=== PATIENT | female | born 1945 | race Caucasian/White ===

== ENCOUNTER → 2017-10-28 | Outpatient (CLI) | payer MEDICARE, MEDICAID ==
[~2017-10-28] MED LIST: AC325T PO; AC500T; AC500T PO; ASP325T PO; ASP81TEC PO; ASPI-892 PO; ATOR20TA66 PO; CEFP200T2 PO; CEPH500C PO; CINN1CAP PO; CINN500C7 PO; CLOP75TA28 PO; CLPD75T PO; DEXL60CA PO; DULO60CA6 PO; ENLP5T; FAMOTIDINE PO; FENO135C4 PO; HYDR1TAB PO; IPRA4AER IH; ISM60TCR PO; ISOS30TA7 PO; LEVO100T7 PO; LVST20T; LVT.05T PO; LVT.088T PO; MAGN400T6 PO; MECL-124 PO; METF-380 PO; METO100T5 PO; MGX400T PO; MTP25TSR; NAPR-243 PO; NF-ESOM40C PO; NF-LOVAZAC; NF-LOVAZAC PO; NIA500ERT PO; NIAC1000 PO; NIAC1TBM5; NITR-65 PO; NITR12SP5 SL; OMG1KC; ONDA8TAB13 PO; ONDAN4ODT PO; PANT40TA3 PO; PNT40TEC PO; POTA10TA36 PO; PRD20T PO; RANO10003 PO; RANO500T2 PO; SCOP1PAT TD; SIMV40TA2 PO; SITA1TAB6 PO; SUCR1TAB PO
--- NOTE | 2017-10-28 10:09 | Diagnostic Imaging Report ---
PROCEDURE: Lung cancer screening CT chest without contrast. TECHNIQUE: Multiple contiguous axial images were obtained through the chest without the use of intravenous contrast. This is performed with a low-dose protocol. INDICATION: Currently asymptomatic patient with 60 pack years history of smoking Comparison: 09/28/2013 Findings: There is a 4 mm nodule in the right upper lobe near the level of the right hilum laterally similar to 09/28/2013 exam. No other nodules, lung mass or significant consolidation is seen. There is no interstitial thickening. No bronchiectasis. There is no pleural or pericardial effusion. There is a healed sternotomy. Post CABG changes are suggested. The heart size is normal. The thoracic aorta demonstrates minimal ectasia of the ascending aorta measuring 3.5 cm. No mediastinal mass or lymphadenopathy. The axilla demonstrate no significant adenopathy. The liver demonstrate diffuse steatosis. The osseous structures demonstrate degenerative changes in the thoracic spine. IMPRESSION: 1. No suspicious nodule or mass. 2. Diffuse hepatic steatosis. Lung Rads Category 2. Benign findings. Recommendations: Annual screening low-dose CT scan. Dictated by: Dictated on workstation # [id number]
== END ==
LOC: RAD 07:43
PROVIDERS: ATTEND Nurse Practitioner Family
DX: Z12.2 Encounter for screening for malignant neoplasm of respiratory organs (principal); K76.0 Fatty (change of) liver, not elsewhere classified; Z87.891 Personal history of nicotine dependence; Z95.1 Presence of aortocoronary bypass graft

== ENCOUNTER → 2017-11-04 | Outpatient (CLI) | payer MEDICARE, MEDICAID | LOC: PREOP 05:19 | PROVIDERS: ATTEND Surgery | DX: Z01.818 Encounter for other preprocedural examination (principal); Z12.11 Encounter for screening for malignant neoplasm of colon ==

== ENCOUNTER → 2017-11-13 | Outpatient (CLI) | payer MEDICARE, MEDICAID ==
--- NOTE | 2017-11-13 11:22 | Diagnostic Imaging Report ---
EXAM: DEXA scan. INDICATION: Screening for osteoporosis COMPARISON: There are no prior studies available for comparison. FINDINGS: The bone mineral density of the hips and spine was measured. The T score for the spine is -1.6. The T score for the right hip is -1.2. These values do fall within the range of osteopenia. The T score for the left hip is -0.8. This value is within normal limits. IMPRESSION: The bone mineral density of the left hip is within normal limits but there is osteopenia of the right hip and the spine. Dictated by: Dictated on workstation # [id number]
== END ==
LOC: RAD 08:38
PROVIDERS: ATTEND Nurse Practitioner Family
DX: M85.851 Other specified disorders of bone density and structure, right thigh (principal); M85.88 Other specified disorders of bone density and structure, other site
CPT/HCPCS: 77080

== ENCOUNTER 2018-01-03 15:03 | Inpatient (IN) | payer MEDICARE, MEDICAID ==
[~2018-01-03] VITALS: Ht 152.4 cm; Wt 72.4 kg
[~2018-01-03 15:03] MED LIST changes: +ACET-93 PO; +ATOR40TA70 PO; +DAPA5TAB PO; +FENO160T12 PO; +LEVO75TA PO; +LOSA50TA36 PO; +NITR4.9S6 SL; +OSEL30CA PO
--- NOTE | 2018-01-03 15:32 | ED Chest Pain ---
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 patient received 4 81 mg aspirin. patient reports chest pain is intermittent. patient denies N/V. patient denies SOA worse than normal Nursing Sepsis Screen: No Definite Risk Source: patient, EMS Exam Limitations: no limitations History of Present Illness Date Seen by Provider: Jan 03, 2018 Time Seen by Provider: 15:28 Initial Comments This 72-year-old white female presents with a complaint of a pressure type chest pain that began this afternoon shortly prior to presentation emergency department. The patient took nitroglycerin with some improvement in her pain. After the paramedics arrived patient was given nitroglycerin as an appointment to her anterior chest wall with good resolution of her chest pain. The patient's chest pain was pressure type in nature severe in quality and nonradiating. Patient had no associated diaphoresis or vomiting. The patient' s chronic shortness of breath is unchanged. Patient was given aspirin prior to presentation. Allergies and Home Medications Allergies Coded Allergies: fentanyl (Unverified Allergy, Intermediate, SEVERE NAUSEA/VOMITTING, ) Sulfa (Sulfonamide Antibiotics) (Verified Allergy, Unknown, 03/15/08) tramadol (Verified Allergy, Unknown, 09/01/08) Home Medications Acetaminophen 500 Mg Tablet, 1,000 MG PO Q6H PRN for PAIN-MILD, (Reported) TAKES 2 (500 MG) TABLETS Atorvastatin Calcium 40 Mg Tablet, 40 MG PO HS, (Reported) Clopidogrel Bisulfate 75 Mg Tablet, 75 MG PO DAILY, (Reported) Dapagliflozin Propanediol 5 Mg Tablet, 5 MG PO DAILY, (Reported) Fenofibrate 160 Mg Tablet, 160 MG PO DAILY, (Reported) Isosorbide Mononitrate 60 Mg Tab, 60 MG PO DAILY, (Reported) Levothyroxine Sodium 75 Mcg Tablet, 75 MCG PO DAILY@0630 Prescribed by: EDGAR COELLO on 12/23/17 6842 Losartan Potassium 50 Mg Tablet, 50 MG PO DAILY, (Reported) Nitroglycerin 4.9 Gm Crockett, 1 SPRAY SL UD PRN for CHEST PAIN, (Reported) Pantoprazole Sodium 40 Mg Tablet.dr, 40 MG PO DAILY, (Reported) Ranolazine 1,000 Mg Tab.er.12h, 1,000 MG PO BID, (Reported) Sitagliptin Phos/Metformin HCl 1 Each Tablet, 1 TAB PO BID, (Reported) Patient Home Medication List Home Medication List Reviewed: Yes Review of Systems Constitutional: No chills, No diaphoresis, No fever EENTM: No Blurred Vision Respiratory: Denies Cough, Shortness of Air (chronic, not worse today.) Cardiovascular: See HPI, Chest Pain, Denies Palpitations Gastrointestinal: Denies Abdominal Pain, Denies Nausea Genitourinary: Denies Burning, Drainage, Denies Frequency Musculoskeletal: No back pain Skin: No change in color Psychiatric/Neurological: No Symptoms Reported Endocrine: No Symptoms Reported Hematologic/Lymphatic: No Symptoms Reported Past Mihjtlq-Gjhdue-Wouqlo Hx Patient Social History Alcohol Use: Denies Use Recreational Drug Use: No Smoking Status: Former Smoker Type Used: Cigarettes Former Smoker, Quit: May 19, 2009 Recent Foreign Travel: No Contact w/Someone Who Travel: No Recent Infectious Disease Expo: No Recent Hopitalizations: Yes Immunizations Up To Date Tetanus Booster (TDap): Unknown PED Vaccines UTD: Yes Date of Pneumonia Vaccine: Aug 03, 2017 Date of Influenza Vaccine: Aug 03, 2017 Seasonal Allergies Seasonal Allergies: No Surgeries History of Surgeries: Yes Surgeries: Cardiac, CABG, Coronary Stent, Gallbladder, Hysterectomy Respiratory History of Respiratory Disorde: Yes (O2 WITH ANY ACTIVITY AND AT HS) Respiratory Disorders: Pneumonia, COPD Currently Using CPAP: No Currently Using BIPAP: No Cardiovascular History of Cardiac Disorders: Yes (BRADYCARDIA) Cardiac Disorders: Coronary Artery Disease, Heart Attack, High Cholesterol, Hypertension Neurological History of Neurological Disord: Yes Neurological Disorders: Stroke Reproductive System Hx Reproductive Disorders: No Sexually Transmitted Disease: No HIV/AIDS: No Genitourinary History of Genitourinary Disor: No Gastrointestinal History of Gastrointestinal Di: Yes Gastrointestinal Disorders: Gastroesophageal Reflux, Esophagitis, Hiatal Hernia Musculoskeletal History of Musculoskeletal Dis: Yes Musculoskeletal Disorders: Arthritis, Chronic Back Pain Endocrine History of Endocrine Disorders: Yes Endocrine Disorders: Hypothyroidsim, Diabetes, Non-Insulin dep HEENT History of HEENT Disorders: No Cancer History of Cancer: No Psychosocial History of Psychiatric Problem: No Integumentary History of Skin or Integumenta: No Blood Transfusions History of Blood Disorders: No Adverse Reaction to a Blood Tr: No Reviewed Nursing Assessment Reviewed/Agree w Nursing PMH: Yes Family Medical History Family Medial History: Arthritis 19 FATHER Asthma 19 MOTHER Cardiovascular disease 19 MOTHER G8 BROTHER G8 SISTER G8 SISTER G8 SISTER Cataracts 19 FATHER Diabetes mellitus 19 MOTHER G8 BROTHER G8 SISTER G8 SISTER G8 SISTER Hypertension 19 MOTHER Myocardial infarction 19 MOTHER G8 SISTER G8 SISTER Parkinson's disease G8 BROTHER Prostate cancer 19 FATHER Respiratory disorder G8 BROTHER Thyroid disease 19 MOTHER Physical Exam Vital Signs Vital Signs - First Documented 01/03/18 15:09 Temp 98.4 Pulse 78 Resp 24 B/P (MAP) 135/87 (103) Pulse Ox 96 O2 Delivery Nasal Cannula O2 Flow Rate 2.00 Capillary Refill : Less Than 3 Seconds General Appearance: No Apparent Distress, WD/WN HEENT: PERRL/EOMI, Normal ENT Inspection Neck: Normal Inspection Respiratory: Chest Non Tender, Lungs Clear, Normal Breath Sounds Cardiovascular: Regular Rate, Rhythm, No Gallop, Normal Peripheral Pulses Gastrointestinal: Normal Bowel Sounds, Non Tender, Soft Extremity: Normal Inspection, Normal Range of Motion Neurologic/Psychiatric: Alert, Oriented x3, No Motor/Sensory Deficits, Normal Mood/Affect Skin: Normal Color, Warm/Dry Progress/Results/Core Measures Results/Orders Lab Results Laboratory Tests Test 01/03/18 15:35 Range/Units White Blood Count 9.5 4.3-11.0 10^3/uL Red Blood Count 4.25 L 4.35-5.85 10^6/uL Hemoglobin 12.2 11.5-16.0 G/DL Hematocrit 37 35-52 % Mean Corpuscular Volume 86 80-99 FL Mean Corpuscular Hemoglobin 29 25-34 PG Mean Corpuscular Hemoglobin Concent 33 32-36 G/DL Red Cell Distribution Width 15.3 H 10.0-14.5 % Platelet Count 305 130-400 10^3/uL Mean Platelet Volume 10.2 7.4-10.4 FL Neutrophils (%) (Auto) 61 42-75 % Lymphocytes (%) (Auto) 30 12-44 % Monocytes (%) (Auto) 7 0-12 % Eosinophils (%) (Auto) 1 0-10 % Basophils (%) (Auto) 1 0-10 % Neutrophils # (Auto) 5.8 1.8-7.8 X 10^3 Lymphocytes # (Auto) 2.9 1.0-4.0 X 10^3 Monocytes # (Auto) 0.7 0.0-1.0 X 10^3 Eosinophils # (Auto) 0.1 0.0-0.3 10^3/uL Basophils # (Auto) 0.1 0.0-0.1 10^3/uL Sodium Level 139 135-145 MMOL/L Potassium Level 3.3 L 3.6-5.0 MMOL/L Chloride Level 106 98-107 MMOL/L Carbon Dioxide Level 22 21-32 MMOL/L Anion Gap 11 5-14 MMOL/L Blood Urea Nitrogen 15 7-18 MG/DL Creatinine 0.74 0.60-1.30 MG/DL Estimat Glomerular Filtration Rate > 60 BUN/Creatinine Ratio 20 Glucose Level 253 H 70-105 MG/DL Calcium Level 9.3 8.5-10.1 MG/DL Total Bilirubin 0.3 0.1-1.0 MG/DL Aspartate Amino Transf (AST/SGOT) 14 5-34 U/L Alanine Aminotransferase (ALT/SGPT) 17 0-55 U/L Alkaline Phosphatase 49 40-136 U/L Troponin I < 0.30 <0.30 NG/ML Total Protein 6.7 6.4-8.2 GM/DL Albumin 3.9 3.2-4.5 GM/DL My Orders Orders - VIC SANTACRUZ MD Troponin I (01/03/18 15:24) Ekg Tracing (01/03/18 15:24) Cbc With Automated Diff (01/03/18 15:24) Comprehensive Metabolic Panel (01/03/18 15:24) Chest 1 View, Ap/Pa Only (01/03/18 15:24) Oxygen-Administer 07,19 (01/03/18 15:24) Enoxaparin Injection (Lovenox Injection) (01/03/18 17:00) Metoprolol Succinate (Xl) Tab (Toprol Xl (01/03/18 17:00) Aspirin Chewable Tablet (Baby Aspirin Ch (01/03/18 17:00) Vital Signs/I&O Vital Sign - Last 12Hours 01/03/18 15:09 Temp 98.4 Pulse 78 Resp 24 B/P (MAP) 135/87 (103) Pulse Ox 96 O2 Delivery Nasal Cannula O2 Flow Rate 2.00 Blood Pressure Mean: 103 Progress Note : Time: 16:50 Progress Note Visit with Dr. Mosqueda who was kind enough to admit the patient for further care. I talked with Dr. Araujo for Dr. Moulton. He recommended patient receive aspirin (given in field, Lovenox, and Toprol. Patient will remain nothing by mouth following a clear liquid breakfast in the morning. She is to be placed on a cardiac diet. Departure Communication (Admissions) Time/Spoke to Admitting Phy: 17:[address] Mosqueda Time/Spoke to Consulting Phy: 17:07 Communication/Consulting Dr. Araujo Impression Impression: Primary Impression: Angina at rest Disposition: ADMITTED INPATIENT Condition: Improved Admissions Decision to Admit Reason: Admit from ER (General) Decision to Admit/Date: Jan 03, 2018 Time/Decision to Admit Time: 17:08 Departure-Patient Inst. Referrals: KODI OQUENDO DO (PCP) Primary Care Physician MARIA MACKEY (Family) Primary Care Physician VIC SANTACRUZ MD Jan 03, 2018 15:32
[2018-01-03 15:43] LABS: BASOPHILS # (AUTO) 0.1 10^3/uL (0.0-0.1); BASOPHILS % (AUTO) 1 % (0-10); EOSINOPHILS # (AUTO) 0.1 10^3/uL (0.0-0.3); EOSINOPHILS % (AUTO) 1 % (0-10); HEMATOCRIT 37 % (35-52); HEMOGLOBIN 12.2 G/DL (11.5-16.0); LYMPHOCYTES # (AUTO) 2.9 X 10^3 (1.0-4.0); LYMPHOCYTES % (AUTO) 30 % (12-44); MEAN CORPUSCULAR HEMOGLOBIN 29 PG (25-34); MEAN CORPUSCULAR HGB CONC 33 G/DL (32-36); MEAN CORPUSCULAR VOLUME 86 FL (80-99); MEAN PLATELET VOLUME 10.2 FL (7.4-10.4); MONOCYTES # (AUTO) 0.7 X 10^3 (0.0-1.0); MONOCYTES % (AUTO) 7 % (0-12); NEUTROPHILS # (AUTO) 5.8 X 10^3 (1.8-7.8); NEUTROPHILS % (AUTO) 61 % (42-75); PLATELET COUNT 305 10^3/uL (130-400); RED BLOOD COUNT 4.25 10^6/uL (4.35-5.85); RED CELL DISTRIBUTION WIDTH 15.3 % (10.0-14.5); WHITE BLOOD COUNT 9.5 10^3/uL (4.3-11.0)
[2018-01-03 16:04] LABS: ALANINE AMINOTRANSFERASE 17 U/L (0-55); ALBUMIN 3.9 GM/DL (3.2-4.5); ALKALINE PHOSPHATASE 49 U/L (40-136); BILIRUBIN,TOTAL 0.3 MG/DL (0.1-1.0); BUN/CREATININE RATIO 20; CALCIUM 9.3 MG/DL (8.5-10.1); CARBON DIOXIDE 22 MMOL/L (21-32); CHLORIDE 106 MMOL/L (98-107); CREATININE SERUM 0.74 MG/DL (0.60-1.30); GFR ESTIMATED > 60; GLUCOSE 253 MG/DL (70-105); POTASSIUM 3.3 MMOL/L (3.6-5.0); SODIUM 139 MMOL/L (135-145); TOTAL PROTEIN 6.7 GM/DL (6.4-8.2)
--- NOTE | 2018-01-03 16:11 | Diagnostic Imaging Report ---
INDICATION: Intermittent chest pain. COMPARISON: 12/20/2017. EXAMINATION: Single view of the chest was obtained. FINDINGS: The lungs are well-aerated. There are no infiltrates that have developed. The heart is mildly enlarged with median sternotomy changes. There is no evidence of pulmonary edema. No pneumothorax or pleural effusion. IMPRESSION: Stable portable chest with postoperative residue and mild cardiomegaly. Dictated by: Dictated on workstation # [id number]
[2018-01-03] MEDS ORDERED: ASPIRIN 81 MG CHEW (CHILDREN'S ASA) PO ONE (17:00)
[2018-01-03] MEDS ORDERED: ENOXAPARIN 80 MG/0.8 ML (LOVENOX) SYR SC ONE (17:00)
[2018-01-03] MEDS ORDERED: CLOPIDOGREL 75 MG (PLAVIX) TABLET PO ONE (17:00)
--- OUTSIDE RECORDS SUMMARY | 2018-01-03 17:19 | XMS REPORT | Continuity of Care Document ---
Author Author [facility] Organization [facility] Address Unknown Phone Unavailable Allergies Active Description Code Type Severity Reaction Onset Reported/Identified Relationship to Patient Clinical Status Yes Sulfa (Sulfonamide Antibiotics) [id number] Drug Allergy Unknown N/A 2007 Yes tramadol [id number] Drug Allergy Unknown N/A 09/01/2008 Yes fentanyl [id number] Drug Allergy Moderate SEVERE NAUSEA/V 06/07/2011 Medications There is no data. Problems Date Dx Coded Attending Type Code Diagnosis Diagnosed By 10/02/1199 Ot V45.81 10/02/1199 Ot V57.89 06/13/2010 Ot 250.00 06/13/2010 Ot 272.4 06/13/2010 Ot 311 06/13/2010 Ot 401.9 06/13/2010 Ot 412 06/13/2010 Ot 414.00 06/13/2010 Ot 428.0 06/13/2010 Ot 428.22 06/13/2010 Ot 496 06/13/2010 Ot 786.59 06/13/2010 Ot V15.81 06/13/2010 Ot V15.82 06/13/2010 Ot V45.81 06/13/2010 Ot V45.82 06/28/2010 Ot 250.00 06/28/2010 Ot 401.9 06/28/2010 Ot 428.0 06/28/2010 Ot 786.05 06/28/2010 Ot 786.59 06/28/2010 Ot V45.81 06/28/2010 Ot V58.66 06/28/2010 Ot V58.69 06/07/2011 Ot 592.1 06/07/2011 Ot 788.1 07/12/2011 Ot 244.9 07/12/2011 Ot 250.00 07/12/2011 Ot 272.4 07/12/2011 Ot 275.2 07/12/2011 Ot 276.8 07/12/2011 Ot 401.9 07/12/2011 Ot 414.01 07/12/2011 Ot 427.81 07/12/2011 Ot 427.89 07/12/2011 Ot E941.3 07/12/2011 Ot V45.81 06/04/2012 Ot 250.00 DIAB MARISOL WO COMPL, TYPE II OR UNSPEC TY 06/04/2012 Ot 272.4 HYPERLIPIDEMIA NEC/NOS 06/04/2012 Ot 414.01 CORONARY ATHEROSCLEROSIS OF [place] CORON 06/04/2012 Ot 414.02 CORON ATHEROSCLEROSIS AUTOLOG VEIN BYPAS 06/04/2012 Ot 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 09/09/2012 Ot 250.00 DIAB MARISOL WO COMPL, TYPE II OR UNSPEC TY 09/09/2012 Ot 401.9 HYPERTENSION NOS 09/09/2012 Ot 414.01 CORONARY ATHEROSCLEROSIS OF [place] CORON 09/09/2012 Ot 780.4 DIZZINESS AND GIDDINESS 09/09/2012 Ot 780.79 OTH MALAISE FATIGUE 09/09/2012 Ot 787.02 NAUSEA ALONE 09/09/2012 Ot V45.81 AORTOCORONARY BYPASS 09/09/2012 Ot V45.82 PERCUTANEOUS TRANSLUM CORON ANGIOPLASTY 09/11/2013 MORGAN SALES DO Ot 250.00 DIAB MARISOL WO COMPL, TYPE II OR UNSPEC TY 09/11/2013 MORGAN SALES DO Ot 412 OLD MYOCARDIAL INFARCT 09/11/2013 MORGAN SALES DO Ot 780.54 HYPERSOMNIA, UNSPECIFIED 09/11/2013 MORGAN SALES DO Ot 786.09 RESPIRATORY ABNORM NEC 09/11/2013 MORGAN SALES DO Ot V15.82 HISTORY OF TOBACCO USE 09/11/2013 MORGAN SALES DO Ot V58.69 OTH MED,LT,CURRENT USE 12/22/2013 AZAR RODARTE MD Ot 250.00 DIAB MARISOL WO COMPL, TYPE II OR UNSPEC TY 12/22/2013 AZAR RODARTE MD Ot 272.4 HYPERLIPIDEMIA NEC/NOS 12/22/2013 AZAR RODARTE MD Ot 401.9 HYPERTENSION NOS 12/22/2013 AZAR RODARTE MD Ot 411.1 INTERMED CORONARY SYND 12/22/2013 AZAR RODARTE MD Ot 414.01 CORONARY ATHEROSCLEROSIS OF [place] CORON 12/22/2013 AZAR RODARTE MD Ot 414.02 CORON ATHEROSCLEROSIS AUTOLOG VEIN BYPAS 12/22/2013 AZAR RODARTE MD Ot 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 12/22/2013 AZAR RODARTE MD Ot 433.10 CAROTID ARTERY OCCLUSION W O CEREBRAL IN 12/22/2013 AZAR RODARTE MD Ot 496 CHR AIRWAY OBSTRUCT NEC 12/22/2013 AZAR RODARTE MD Ot V45.81 AORTOCORONARY BYPASS 12/22/2013 AZAR RODARTE MD Ot V58.63 LONG-TERM(CURRENT)USE OF ANTIPLATELET/AN 12/22/2013 AZAR RODARTE MD Ot V58.69 OTH MED,LT,CURRENT USE 02/10/2014 TRISHA DUNN DO Ot 250.00 DIAB MARISOL WO COMPL, TYPE II OR UNSPEC TY 02/10/2014 TRISHA DUNN DO Ot 414.00 CORON ATHEROSCLER NOS TYPE VESSEL, NATIV 02/10/2014 TRISHA DUNN DO Ot 780.2 SYNCOPE AND COLLAPSE 02/10/2014 TRISHA DUNN DO Ot 780.4 DIZZINESS AND GIDDINESS 02/10/2014 TRISHA DUNN DO Ot V58.69 OTH MED,LT,CURRENT USE 08/18/2014 MARILYN FUCHS MD Ot 250.00 DIAB MARISOL WO COMPL, TYPE II OR UNSPEC TY 08/18/2014 MARILYN FUCHS MD Ot 599.0 URIN TRACT INFECTION NOS 08/18/2014 MARILYN FUCHS MD Ot 780.79 OTH MALAISE FATIGUE 08/18/2014 MARILYN FUCHS MD Ot V58.69 OTH MED,LT,CURRENT USE 10/18/2014 GERRI HODGE Ot 599.0 URIN TRACT INFECTION NOS 10/18/2014 GERRI HODGE Ot 787.01 NAUSEA WITH VOMITING 10/18/2014 GERRI HODGE Ot 787.03 VOMITING ALONE 10/18/2014 GERRI HODGE Ot 787.91 DIARRHEA 07/17/2015 Ot 793.81 07/17/2015 Ot V76.12 07/17/2015 Ot 272.4 07/17/2015 Ot 611.89 07/17/2015 Ot 397.0 07/17/2015 Ot 401.9 07/17/2015 Ot 414.00 07/17/2015 Ot 786.50 07/17/2015 Ot V76.12 07/17/2015 JEANINE WHITTAKER DO Ot V76.12 07/17/2015 ASTER FORTE, AZAR Art Ot 397.0 07/17/2015 ASTER FORTE, AZAR Art Ot 414.00 07/17/2015 ASTER FORTE, AZAR Art Ot 424.0 07/17/2015 ASTER FORTE, AZAR Art Ot 496 07/17/2015 ASTER FORTE, AZAR Art Ot 786.09 07/17/2015 ASTER FORTE, AZAR Art Ot 414.00 07/17/2015 ASTER FORTE, AZAR Art Ot 496 07/17/2015 ASTER FORTE, AZAR Art Ot 786.09 07/17/2015 MORGAN SALES DO Ot 278.00 07/17/2015 MORGAN SALES DO Ot 414.00 07/17/2015 MORGAN SALES DO Ot 496 07/17/2015 MORGAN SALES DO Ot 780.54 07/17/2015 MORGAN SALES DO Ot 786.09 07/17/2015 MORGAN SALES DO Ot 799.51 07/17/2015 MORGAN SALES DO Ot 782.5 07/17/2015 MORGAN SALES DO Ot 786.05 07/17/2015 JEANINE WHITTAKER DO Ot 241.0 07/17/2015 ASTER FORTE, AZAR Art Ot 427.89 07/20/2015 AZAR RODARTE MD Ot 427.89 08/01/2015 AZAR RODARTE MD Ot 427.89 08/09/2015 ОЛЕГ AGUILA Ot 401.9 08/09/2015 ОЛЕГ AGUILA Ot 414.00 08/09/2015 ОЛЕГ AGUILA Ot 780.2 08/09/2015 ОЛЕГ AGUILA Ot 786.09 08/16/2015 AZAR RODARTE MD Ot 401.9 08/16/2015 AZAR RODARTE MD Ot 414.00 08/16/2015 AZAR RODARTE MD Ot 780.2 08/16/2015 AZAR RODARTE MD Ot 786.09 09/25/2015 AZAR RODARTE MD Ot 401.9 09/25/2015 AZAR RODARTE MD Ot 414.00 09/25/2015 AZAR RODARTE MD Ot 780.2 09/25/2015 AZAR RODARTE MD Ot 786.09 10/03/2015 ОЛЕГ AGUILA Ot 401.9 10/03/2015 ОЛЕГ AGUILA Ot 414.00 10/03/2015 ОЛЕГ AGUILA Ot 780.2 10/03/2015 ОЛЕГ AGUILA Ot 786.09 11/24/2015 Ot R11.0 NAUSEA 11/24/2015 Ot R53.1 WEAKNESS 02/21/2016 AZAR RODARTE MD Ot E11.9 TYPE 2 DIABETES MELLITUS WITHOUT COMPLIC 02/21/2016 AZAR RODARTE MD Ot E78.5 HYPERLIPIDEMIA, UNSPECIFIED 02/21/2016 AZAR RODARTE MD Ot I10 ESSENTIAL (PRIMARY) HYPERTENSION 02/21/2016 AZAR RODARTE MD Ot I25.10 ATHSCL HEART DISEASE OF [place] CORONARY 02/21/2016 AZAR RODARTE MD Ot I49.5 SICK SINUS SYNDROME 02/21/2016 AZAR RODARTE MD, Ot J44.9 CHRONIC OBSTRUCTIVE PULMONARY DISEASE, U 02/21/2016 AZAR RODARTE MD Ot Z79.899 OTHER [facility] (CURRENT) DRUG THERAPY 02/21/2016 AZAR RODARTE MD Ot Z95.1 PRESENCE OF AORTOCORONARY BYPASS GRAFT 02/28/2016 HECTOR COTTO MD Ot E03.9 HYPOTHYROIDISM, UNSPECIFIED 02/28/2016 HECTOR COTTO MD Ot E11.9 TYPE 2 DIABETES MELLITUS WITHOUT COMPLIC 02/28/2016 HECTOR COTTO MD Ot E78.0 PURE HYPERCHOLESTEROLEMIA 02/28/2016 HECTOR COTTO MD Ot I25.2 OLD MYOCARDIAL INFARCTION 02/28/2016 HECTOR COTTO MD, Ot I25.810 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 02/28/2016 HECTOR COTTO MD, Ot J18.9 PNEUMONIA, UNSPECIFIED ORGANISM 02/28/2016 HECTRO COTTO MD, Ot J44.9 CHRONIC OBSTRUCTIVE PULMONARY DISEASE, U 02/28/2016 HECTOR COTTO MD Ot M19.90 UNSPECIFIED OSTEOARTHRITIS, UNSPECIFIED 02/28/2016 HECTOR COTTO MD Ot M54.9 DORSALGIA, UNSPECIFIED 02/28/2016 HECTOR COTTO MD Ot N30.00 ACUTE CYSTITIS WITHOUT HEMATURIA 02/28/2016 HECTOR COTTO MD, Ot Z86.73 PRSNL HX OF TIA (TIA), AND CEREB INFRC W 02/28/2016 HECTOR COTTO MD, Ot Z87.891 PERSONAL HISTORY OF NICOTINE DEPENDENCE 02/28/2016 HECTOR COTTO MD Ot Z95.1 PRESENCE OF AORTOCORONARY BYPASS GRAFT 03/04/2016 AZAR RODARTE MD Ot E11.9 TYPE 2 DIABETES MELLITUS WITHOUT COMPLIC 03/04/2016 AZAR RODARTE MD Ot E78.5 HYPERLIPIDEMIA, UNSPECIFIED 03/04/2016 AZAR RODARTE MD Ot I10 ESSENTIAL (PRIMARY) HYPERTENSION 03/04/2016 AZAR RODARTE MD Ot I25.10 ATHSCL HEART DISEASE OF [place] CORONARY 03/04/2016 AZAR RODARTE MD Ot I49.5 SICK SINUS SYNDROME 03/04/2016 AZAR RODARTE MD Ot J44.9 CHRONIC OBSTRUCTIVE PULMONARY DISEASE, U 03/04/2016 AZAR RODARTE MD Ot Z79.899 OTHER [facility] (CURRENT) DRUG THERAPY 03/04/2016 AZAR RODARTE MD Ot Z95.1 PRESENCE OF AORTOCORONARY BYPASS GRAFT 04/03/2016 AZAR RODARTE MD Ot E78.0 PURE HYPERCHOLESTEROLEMIA 04/03/2016 AZAR RODARTE MD Ot I25.10 ATHSCL HEART DISEASE OF [place] CORONARY 2016 ОЛЕГ AGUILA Ot E78.2 MIXED HYPERLIPIDEMIA 2016 ОЛЕГ AGUILA Ot I10 ESSENTIAL (PRIMARY) HYPERTENSION 2016 ОЛЕГ AGUILA Ot I25.10 ATHSCL HEART DISEASE OF [place] CORONARY 2016 ОЛЕГ AGUILA Ot 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 04/26/2016 AZAR RODARTE MD Ot E78.0 PURE HYPERCHOLESTEROLEMIA 04/26/2016 AZAR RODARTE MD Ot I25.10 ATHSCL HEART DISEASE OF [place] CORONARY 05/14/2016 ОЛЕГ AGUILA Ot E78.2 MIXED HYPERLIPIDEMIA 05/14/2016 ОЛЕГ AGUILA Ot I10 ESSENTIAL (PRIMARY) HYPERTENSION 05/14/2016 ОЛЕГ AGUILA Ot I25.10 ATHSCL HEART DISEASE OF [place] CORONARY 05/14/2016 ОЛЕГ AGUILA Ot 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891 PERSONAL HISTORY OF NICOTINE DEPENDENCE 05/20/2016 OQUENDO DO KODI K Ot Z95.1 PRESENCE OF AORTOCORONARY BYPASS GRAFT 05/20/2016 AZRA SLADE KODI K Ot Z95.5 PRESENCE OF CORONARY ANGIOPLASTY IMPLANT 05/20/2016 AZRA SLADE KODI K Ot E03.9 HYPOTHYROIDISM, UNSPECIFIED 05/20/2016 OQUENDO DO, KODI K Ot E11.9 TYPE 2 DIABETES MELLITUS WITHOUT COMPLIC 05/20/2016 OQUENDO DO, KODI K Ot E66.9 OBESITY, UNSPECIFIED 05/20/2016 OQUENDO DO, KODI K Ot I25.10 ATHSCL HEART DISEASE OF [place] CORONARY 05/20/2016 OQUENDO DO KODI K Ot I25.2 OLD MYOCARDIAL INFARCTION 05/20/2016 OQUENDO DO, KODI K Ot J44.9 CHRONIC OBSTRUCTIVE PULMONARY DISEASE, U 05/20/2016 OQUENDO DO, KODI K Ot K21.9 GASTRO-ESOPHAGEAL REFLUX DISEASE WITHOUT 05/20/2016 OQUENDO DO, KODI K Ot R07.89 OTHER CHEST PAIN 05/20/2016 KODI OQUENDO DO Ot Z87.891 PERSONAL HISTORY OF NICOTINE DEPENDENCE 05/20/2016 BREANA OQUENDO DOA Ally Ot Z95.1 PRESENCE OF AORTOCORONARY BYPASS GRAFT 05/20/2016 KODI OQUENDO DO Ot Z95.5 PRESENCE OF CORONARY ANGIOPLASTY IMPLANT 06/11/2016 ОЛЕГ AGUILA Ot E78.2 MIXED HYPERLIPIDEMIA 06/11/2016 ОЛЕГ AGUILA Ot I10 ESSENTIAL (PRIMARY) HYPERTENSION 06/11/2016 ОЛЕГ AGUILA Ot I25.10 ATHSCL HEART DISEASE OF [place] CORONARY 06/11/2016 ОЛЕГ AGUILA Ot 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 06/20/2016 JAKY BONILLA MD Ot E03.9 HYPOTHYROIDISM, UNSPECIFIED 06/20/2016 JAKY BONILLA MD, Ot E78.5 HYPERLIPIDEMIA, UNSPECIFIED 06/20/2016 JAKY BONILLA MD, Ot I10 ESSENTIAL (PRIMARY) HYPERTENSION 06/20/2016 AJKY BONILLA MD Ot I25.10 ATHSCL HEART DISEASE OF [place] CORONARY 06/20/2016 JAKY BONILLA MD Ot 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 06/20/2016 JAKY BONILLA MD Ot I49.5 SICK SINUS SYNDROME 06/20/2016 JAKY BONILLA MD Ot J44.9 CHRONIC OBSTRUCTIVE PULMONARY DISEASE, U 06/20/2016 JAKY BONILLA MD Ot K20.9 ESOPHAGITIS, UNSPECIFIED 06/20/2016 JAKY BONILLA MD, Ot K44.9 DIAPHRAGMATIC HERNIA WITHOUT OBSTRUCTION 06/20/2016 JAKY BONILLA MD, Ot Z79.899 OTHER [facility] (CURRENT) DRUG THERAPY 06/20/2016 JAKY BONILLA MD Ot Z95.1 PRESENCE OF AORTOCORONARY BYPASS GRAFT 07/07/2016 ОЛЕГ AGUILA Ot E78.2 MIXED HYPERLIPIDEMIA 07/07/2016 ОЛЕГ AGUILA Ot I10 ESSENTIAL (PRIMARY) HYPERTENSION 07/07/2016 ОЛЕГ AGUILA Ot I25.10 ATHSCL HEART DISEASE OF [place] CORONARY 07/07/2016 ОЛЕГ AGIULA Ot 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 07/15/2016 ОЛЕГ AGUILA Ot E78.2 MIXED HYPERLIPIDEMIA 07/15/2016 ОЛЕГ AGUILA Ot I10 ESSENTIAL (PRIMARY) HYPERTENSION 07/15/2016 ОЛЕГ AGUILA Ot I25.10 ATHSCL HEART DISEASE OF [place] CORONARY 07/15/2016 ОЛЕГ AGUILA Ot 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 10/20/2017 KEYMARIA Dajuan INTERNATIONAL COORDINATOR Ot Z78.0 ASYMPTOMATIC MENOPAUSAL STATE 10/21/2017 MARIA MACKEY Dajuan INTERNATIONAL COORDINATOR Ot Z87.891 PERSONAL HISTORY OF NICOTINE DEPENDENCE 10/21/2017 Ot V76.12 OTH SCREEN MAMMO-MALIGN NEOPLASM OF ANISH 10/21/2017 JEANINE WHITTAKER DO Ot V76.12 OTH SCREEN MAMMO-MALIGN NEOPLASM OF ANISH 10/21/2017 AZAR RODARTE MD Ot 397.0 TRICUSPID VALVE DISEASE 10/21/2017 AZAR RODARTE MD Ot 414.00 CORON ATHEROSCLER NOS TYPE VESSEL, NATIV 10/21/2017 AZAR RODARTE MD Ot 424.0 MITRAL VALVE DISORDER 10/21/2017 AZAR RODARTE MD Ot 496 CHR AIRWAY OBSTRUCT NEC 10/21/2017 AZAR RODARTE MD Ot 786.09 RESPIRATORY ABNORM NEC 10/21/2017 AZAR RODARTE MD Ot 414.00 CORON ATHEROSCLER NOS TYPE VESSEL, NATIV 10/21/2017 AZAR RODARTE MD Ot 496 CHR AIRWAY OBSTRUCT NEC 10/21/2017 AZAR RODARTE MD Ot 786.09 RESPIRATORY ABNORM NEC 10/21/2017 MORGAN SALES DO Ot 278.00 OBESITY, NOS 10/21/2017 MORGAN SALES DO Ot 414.00 CORON ATHEROSCLER NOS TYPE VESSEL, NATIV 10/21/2017 MORGAN SALES DO Ot 496 CHR AIRWAY OBSTRUCT NEC 10/21/2017 MORGAN SALES DO Ot 780.54 HYPERSOMNIA, UNSPECIFIED 10/21/2017 MORGAN SALES DO Ot 786.09 RESPIRATORY ABNORM NEC 10/21/2017 MORGAN SALES DO Ot 799.51 ATTENTION OR CONCENTRATION DEFICIT 10/21/2017 MORGAN SALES DO Ot 782.5 CYANOSIS 10/21/2017 MORGAN SALES DO Ot 786.05 SHORTNESS OF BREATH 10/21/2017 JEANINE WHITTAKER DO Ot 241.0 NONTOX UNINODULAR GOITER 10/21/2017 AZAR RODARTE MD Ot 427.89 CARDIAC DYSRHYTHMIAS NEC 10/21/2017 ОЛЕГ AGUILA Ot 401.9 HYPERTENSION NOS 10/21/2017 ОЛЕГ AGUILA Ot 414.00 CORON ATHEROSCLER NOS TYPE VESSEL, NATIV 10/21/2017 ОЛЕГ AGUILA Ot 780.2 SYNCOPE AND COLLAPSE 10/21/2017 ОЛЕГ AGUILA Ot 786.09 RESPIRATORY ABNORM NEC 10/21/2017 AZAR RODARTE MD Ot 401.9 HYPERTENSION NOS 10/21/2017 AZAR RODARTE MD Ot 414.00 CORON ATHEROSCLER NOS TYPE VESSEL, NATIV 10/21/2017 AZAR RODARTE MD Ot 780.2 SYNCOPE AND COLLAPSE 10/21/2017 AZAR RODARTE MD Ot 786.09 RESPIRATORY ABNORM NEC 10/21/2017 AZAR RODARTE MD Ot E78.0 PURE HYPERCHOLESTEROLEMIA 10/21/2017 AZAR RODARTE MD Ot I25.10 ATHSCL HEART DISEASE OF [place] CORONARY 10/21/2017 ОЛЕГ AGUILA Ot E78.2 MIXED HYPERLIPIDEMIA 10/21/2017 ОЛЕГ AGUILA Ot I10 ESSENTIAL (PRIMARY) HYPERTENSION 10/21/2017 ОЛЕГ AGUILA Ot I25.10 ATHSCL HEART DISEASE OF [place] CORONARY 10/21/2017 ОЛЕГ AGUILA Ot 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 10/21/2017 MARIA MACKEYP Ot Z12.31 ENCNTR SCREEN MAMMOGRAM FOR MALIGNANT NE 10/21/2017 MARIA MACKEY INTERNATIONAL COORDINATOR Ot Z78.0 ASYMPTOMATIC MENOPAUSAL STATE 10/21/2017 MARIA MACEKY INTERNATIONAL COORDINATOR Ot Z87.891 PERSONAL HISTORY OF NICOTINE DEPENDENCE 10/22/2017 MARIA MACKEY INTERNATIONAL COORDINATOR Ot Z87.891 PERSONAL HISTORY OF NICOTINE DEPENDENCE 11/10/2017 MIKE FORTE, GLENDY M Ot Z01.818 ENCOUNTER FOR OTHER PREPROCEDURAL EXAMIN 11/10/2017 MIKE FORTE, GLENDY Myles Ot Z12.11 ENCOUNTER FOR SCREENING FOR MALIGNANT NE 11/10/2017 MIKE FORTE, GLENDY M Ot Z01.818 ENCOUNTER FOR OTHER PREPROCEDURAL EXAMIN 11/10/2017 MIKE FORTE, GLENDY Myles Ot Z12.11 ENCOUNTER FOR SCREENING FOR MALIGNANT NE 11/10/2017 MIKE FORTE, GLENDY M Ot Z01.818 ENCOUNTER FOR OTHER PREPROCEDURAL EXAMIN 11/10/2017 MIKE FORTE, GLENDY Myles Ot Z12.11 ENCOUNTER FOR SCREENING FOR MALIGNANT NE 11/10/2017 MIKE FORTE, GLENDY Myles Ot Z01.818 ENCOUNTER FOR OTHER PREPROCEDURAL EXAMIN 11/10/2017 MIKE FORTE, GLENDY Myles Ot Z12.11 ENCOUNTER FOR SCREENING FOR MALIGNANT NE 11/10/2017 MIKE FORTE, GLENDY Myles Ot Z01.818 ENCOUNTER FOR OTHER PREPROCEDURAL EXAMIN 11/10/2017 MIKE FORTE, GLENDY M Ot Z12.11 ENCOUNTER FOR SCREENING FOR MALIGNANT NE 11/13/2017 MARIA MACKEY INTERNATIONAL COORDINATOR Ot Z78.0 ASYMPTOMATIC MENOPAUSAL STATE 11/13/2017 MADLMARIA INTERNATIONAL COORDINATOR Ot Z78.0 ASYMPTOMATIC MENOPAUSAL STATE 11/13/2017 JEANINE WHITTAKER DO Ot V76.12 OTH SCREEN MAMMO-MALIGN NEOPLASM OF ANISH 11/13/2017 AZAR RODARTE MD Ot 397.0 TRICUSPID VALVE DISEASE 11/13/2017 AZAR RODARTE MD Ot 414.00 CORON ATHEROSCLER NOS TYPE VESSEL, NATIV 11/13/2017 AZAR RODARTE MD Ot 424.0 MITRAL VALVE DISORDER 11/13/2017 AZAR RODARTE MD Ot 496 CHR AIRWAY OBSTRUCT NEC 11/13/2017 AZAR RODARTE MD Ot 786.09 RESPIRATORY ABNORM NEC 11/13/2017 AZAR RODARTE MD Ot 414.00 CORON ATHEROSCLER NOS TYPE VESSEL, NATIV 11/13/2017 AZAR RODARTE MD Ot 496 CHR AIRWAY OBSTRUCT NEC 11/13/2017 AZAR RODARTE MD Ot 786.09 RESPIRATORY ABNORM NEC 11/13/2017 MORGAN SALES DO Ot 278.00 OBESITY, NOS 11/13/2017 MÓNICA SLADE MORGAN Myles Ot 414.00 CORON ATHEROSCLER NOS TYPE VESSEL, NATIV 11/13/2017 MÓNICA SLADE MORGAN Myles Ot 496 CHR AIRWAY OBSTRUCT NEC 11/13/2017 MÓNICA SLADE MORGAN Myles Ot 780.54 HYPERSOMNIA, UNSPECIFIED 11/13/2017 MÓNICA SLADE MORGAN Myles Ot 786.09 RESPIRATORY ABNORM NEC 11/13/2017 MÓNICA SLADE MORGAN Myles Ot 799.51 ATTENTION OR CONCENTRATION DEFICIT 11/13/2017 MÓNICA SLADE MORGAN Shar Ot 782.5 CYANOSIS 11/13/2017 MÓNICA DO MORGAN Myles Ot 786.05 SHORTNESS OF BREATH 11/13/2017 PANFILO DO JEANINE Damaris Ot 241.0 NONTOX UNINODULAR GOITER 11/13/2017 AZAR RODARTE MD Ot 427.89 CARDIAC DYSRHYTHMIAS NEC 11/13/2017 ОЛЕГ AGUILA Ot 401.9 HYPERTENSION NOS 11/13/2017 ОЛЕГ AGUILA Ot 414.00 CORON ATHEROSCLER NOS TYPE VESSEL, NATIV 11/13/2017 ОЛЕГ AGUILA Ot 780.2 SYNCOPE AND COLLAPSE 11/13/2017 ОЛЕГ AGUILA Ot 786.09 RESPIRATORY ABNORM NEC 11/13/2017 AZAR RODARTE MD Ot 401.9 HYPERTENSION NOS 11/13/2017 AZAR RODARTE MD Ot 414.00 CORON ATHEROSCLER NOS TYPE VESSEL, NATIV 11/13/2017 AZAR RODARTE MD Ot 780.2 SYNCOPE AND COLLAPSE 11/13/2017 AZAR RODARTE MD Ot 786.09 RESPIRATORY ABNORM NEC 11/13/2017 AZAR RODARTE MD Ot E78.0 PURE HYPERCHOLESTEROLEMIA 11/13/2017 AZAR RODARTE MD Ot I25.10 ATHSCL HEART DISEASE OF [place] CORONARY 11/13/2017 ОЛЕГ AGUILA Ot E78.2 MIXED HYPERLIPIDEMIA 11/13/2017 ОЛЕГ AGUILA Ot I10 ESSENTIAL (PRIMARY) HYPERTENSION 11/13/2017 ОЛЕГ AGUILA Ot I25.10 ATHSCL HEART DISEASE OF [place] CORONARY 11/13/2017 ОЛЕГ AGUILA Ot 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 11/13/2017 MARIA MACKEY INTERNATIONAL COORDINATOR Ot Z12.31 ENCNTR SCREEN MAMMOGRAM FOR MALIGNANT NE 11/13/2017 MARIA MACKEY INTERNATIONAL COORDINATOR Ot Z78.0 ASYMPTOMATIC MENOPAUSAL STATE 11/13/2017 MARIA MACKEY INTERNATIONAL COORDINATOR Ot K76.0 FATTY (CHANGE OF) LIVER, NOT ELSEWHERE C 11/13/2017 BECKYLMARIA INTERNATIONAL COORDINATOR Ot Z12.2 ENCNTR SCREEN FOR MALIGNANT NEOPLASM OF 11/13/2017 MARIA MACKEY INTERNATIONAL COORDINATOR Ot Z87.891 PERSONAL HISTORY OF NICOTINE DEPENDENCE 11/13/2017 MADLSHERIA L INTERNATIONAL COORDINATOR Ot Z95.1 PRESENCE OF AORTOCORONARY BYPASS GRAFT 11/13/2017 MIKE FORTE, GLENDY Myles Ot Z01.818 ENCOUNTER FOR OTHER PREPROCEDURAL EXAMIN 11/13/2017 MIKE FORTE, GLENDY Myles Ot Z12.11 ENCOUNTER FOR SCREENING FOR MALIGNANT NE 11/14/2017 MARIA MACKEY INTERNATIONAL COORDINATOR Ot 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, 11/14/2017 BECKYLMARIA INTERNATIONAL COORDINATOR Ot M85.88 OTH DISRD OF BONE DENSITY AND STRUCTURE, 11/21/2017 BECKYLMARIA INTERNATIONAL COORDINATOR Ot K76.0 FATTY (CHANGE OF) LIVER, NOT ELSEWHERE C 11/21/2017 BECKYLMARIA INTERNATIONAL COORDINATOR Ot Z12.2 ENCNTR SCREEN FOR MALIGNANT NEOPLASM OF 11/21/2017 MARIA MACKEY L INTERNATIONAL COORDINATOR Ot Z87.891 PERSONAL HISTORY OF NICOTINE DEPENDENCE 11/21/2017 BECKYLSHERIA L INTERNATIONAL COORDINATOR Ot Z95.1 PRESENCE OF AORTOCORONARY BYPASS GRAFT 12/03/2017 MARIA MACKEY INTERNATIONAL COORDINATOR Ot K76.0 FATTY (CHANGE OF) LIVER, NOT ELSEWHERE C 12/03/2017 BECKYLMARIA L INTERNATIONAL COORDINATOR Ot Z12.2 ENCNTR SCREEN FOR MALIGNANT NEOPLASM OF 12/03/2017 MARIA MACKEY L INTERNATIONAL COORDINATOR Ot Z87.891 PERSONAL HISTORY OF NICOTINE DEPENDENCE 12/03/2017 MADLSHERIA L INTERNATIONAL COORDINATOR Ot Z95.1 PRESENCE OF AORTOCORONARY BYPASS GRAFT 12/09/2017 MARIA MACKEY INTERNATIONAL COORDINATOR Ot 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, 12/09/2017 MARIA MACKEY INTERNATIONAL COORDINATOR Ot M85.88 OTH DISRD OF BONE DENSITY AND STRUCTURE, 12/09/2017 MARIA MACKEY INTERNATIONAL COORDINATOR Ot Z13.820 ENCOUNTER FOR SCREENING FOR OSTEOPOROSIS 12/09/2017 MARIA MACKEY INTERNATIONAL COORDINATOR Ot Z78.0 ASYMPTOMATIC MENOPAUSAL STATE 12/18/2017 MARIA MCAKEY INTERNATIONAL COORDINATOR Ot 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, 12/18/2017 MARIA MACKEY INTERNATIONAL COORDINATOR Ot M85.88 OTH DISRD OF BONE DENSITY AND STRUCTURE, 12/18/2017 MARIA MACKEY INTERNATIONAL COORDINATOR Ot Z13.820 ENCOUNTER FOR SCREENING FOR OSTEOPOROSIS 12/18/2017 MARIA MACKEY INTERNATIONAL COORDINATOR Ot Z78.0 ASYMPTOMATIC MENOPAUSAL STATE 12/24/2017 ALLAN GUZMAN MD, Ot E03.9 HYPOTHYROIDISM, UNSPECIFIED 12/24/2017 ALLAN GUZMAN MD, Ot E11.9 TYPE 2 DIABETES MELLITUS WITHOUT COMPLIC 12/24/2017 ALLAN GUZMAN MD, Ot E78.5 HYPERLIPIDEMIA, UNSPECIFIED 12/24/2017 ALLAN GUZMAN MD, Ot I10 ESSENTIAL (PRIMARY) HYPERTENSION 12/24/2017 ALLAN GUZMAN MD, Ot I25.10 ATHSCL HEART DISEASE OF [place] CORONARY 12/24/2017 ALLAN GUZMAN MD, Ot I25.2 OLD MYOCARDIAL INFARCTION 12/24/2017 ALLAN GUZMAN MD, Ot J11.1 FLU DUE TO UNIDENTIFIED INFLUENZA VIRUS 12/24/2017 ALLAN GUZMAN MD, Ot J44.1 CHRONIC OBSTRUCTIVE PULMONARY DISEASE W 12/24/2017 ALLAN GUZMAN MD, Ot K21.9 GASTRO-ESOPHAGEAL REFLUX DISEASE WITHOUT 12/24/2017 ALLAN GUZMAN MD, Ot K44.9 DIAPHRAGMATIC HERNIA WITHOUT OBSTRUCTION 12/24/2017 ALLAN GUZMAN MD, Ot Z86.73 PRSNL HX OF TIA (TIA), AND CEREB INFRC W 12/24/2017 ALLAN GUZMAN MD, Ot Z87.01 PERSONAL HISTORY OF PNEUMONIA (RECURRENT 12/24/2017 MEGAN FORTE, ALLAN Espino Ot Z87.891 PERSONAL HISTORY OF NICOTINE DEPENDENCE 12/24/2017 MEGAN FORTE, ALLAN Espino Ot Z95.1 PRESENCE OF AORTOCORONARY BYPASS GRAFT 12/24/2017 ALLAN GUZMAN MD, Ot Z95.5 PRESENCE OF CORONARY ANGIOPLASTY IMPLANT 12/24/2017 ALLAN GUZMAN MD, Ot Z99.81 DEPENDENCE ON SUPPLEMENTAL OXYGEN Procedures There is no data. Results Test Result Range Complete blood count (CBC) with automated white blood cell (WBC) differential - 06/18/16 16:05 Blood leukocytes automated count (number/volume) 7.2 10*3/uL 4.3-11.0 Blood erythrocytes automated count (number/volume) 4.08 10*6/uL 4.35-5.85 Venous blood hemoglobin measurement (mass/volume) 12.2 g/dL 11.5-16.0 Blood hematocrit (volume fraction) 37 % 35-52 Automated erythrocyte mean corpuscular volume 91 [foz_us] 80-99 Automated erythrocyte mean corpuscular hemoglobin (mass per erythrocyte) 30 pg 25-34 Automated erythrocyte mean corpuscular hemoglobin concentration measurement ( mass/volume) 33 g/dL 32-36 Automated erythrocyte distribution width ratio 13.4 % 10.0-14.5 Automated blood platelet count (count/volume) 301 10*3/uL 130-400 Automated blood platelet mean volume measurement 9.8 [foz_us] 7.4-10.4 Automated blood neutrophils/100 leukocytes 55 % 42-75 Automated blood lymphocytes/100 leukocytes 34 % 12-44 Blood monocytes/100 leukocytes 9 % 0-12 Automated blood eosinophils/100 leukocytes 1 % 0-10 Automated blood basophils/100 leukocytes 1 % 0-10 Blood neutrophils automated count (number/volume) 4.0 10*3 1.8-7.8 Blood lymphocytes automated count (number/volume) 2.5 10*3 1.0-4.0 Blood monocytes automated count (number/volume) 0.6 10*3 0.0-1.0 Automated eosinophil count 0.1 10*3/uL 0.0-0.3 Automated blood basophil count (count/volume) 0.0 10*3/uL 0.0-0.1 PT panel in platelet poor plasma by coagulation assay - 06/18/16 16:05 Prothrombin time (PT) in platelet poor plasma by coagulation assay 13.0 s 12.2-14.7 INR in platelet poor plasma or blood by coagulation assay 1.0 0.8-1.4 Activated partial thromboplastin time (aPTT) in platelet poor plasma bycoagulation assay - 06/18/16 16:05 Activated partial thromboplastin time (aPTT) in platelet poor plasma bycoagulation assay 26 s 24-35 Fibrin D-dimer FEU measurement in platelet poor plasma (mass/volume) - 16:05 Fibrin D-dimer FEU measurement in platelet poor plasma (mass/volume) 0.29 ug/mL 0.00-0.49 Comprehensive metabolic panel - 06/18/16 16:05 Serum or plasma sodium measurement (moles/volume) 139 mmol/L 135-145 Serum or plasma potassium measurement (moles/volume) 3.7 mmol/L 3.6-5.0 Serum or plasma chloride measurement (moles/volume) 107 mmol/L 98-107 Carbon dioxide 27 mmol/L 21-32 Serum or plasma anion gap determination (moles/volume) 5 mmol/L 5-14 Serum or plasma urea nitrogen measurement (mass/volume) 17 mg/dL 7-18 Serum or plasma creatinine measurement (mass/volume) 0.75 mg/dL 0.60-1.30 Serum or plasma urea nitrogen/creatinine mass ratio 23 NRG Serum or plasma creatinine measurement with calculation of estimated glomerular filtration rate > NRG Serum or plasma glucose measurement (mass/volume) 175 mg/dL 70-105 Serum or plasma calcium measurement (mass/volume) 9.5 mg/dL 8.5-10.1 Serum or plasma total bilirubin measurement (mass/volume) 0.3 mg/dL 0.1-1.0 Serum or plasma alkaline phosphatase measurement (enzymatic activity/volume) 60 U/L 40-136 Serum or plasma aspartate aminotransferase measurement (enzymatic activity/ volume) 17 U/L 5-34 Serum or plasma alanine aminotransferase measurement (enzymatic activity/volume ) 23 U/L 0-55 Serum or plasma protein measurement (mass/volume) 6.5 g/dL 6.4-8.2 Serum or plasma albumin measurement (mass/volume) 4.0 g/dL 3.2-4.5 Magnesium - 06/18/16 16:05 Magnesium 1.8 mg/dL 1.8-2.4 Serum or plasma troponin i.cardiac measurement (mass/volume) - 06/18/16 16:05 Serum or plasma troponin i.cardiac measurement (mass/volume) < ng/ mL <0.30 Myoglobin, serum - 06/18/16 16:05 Myoglobin, serum 15.8 ng/mL 10.0-92.0 Capillary blood glucose measurement by glucometer (mass/volume) - 06/18/16 19: 51 Capillary blood glucose measurement by glucometer (mass/volume) 86 mg/dL 70-110 Serum or plasma troponin i.cardiac measurement (mass/volume) - 06/18/16 21:56 Serum or plasma troponin i.cardiac measurement (mass/volume) < ng/ mL <0.30 Complete blood count (CBC) with automated white blood cell (WBC) differential - 06/19/16 04:25 Blood leukocytes automated count (number/volume) 7.1 10*3/uL 4.3-11.0 Blood erythrocytes automated count (number/volume) 3.87 10*6/uL 4.35-5.85 Venous blood hemoglobin measurement (mass/volume) 11.6 g/dL 11.5-16.0 Blood hematocrit (volume fraction) 35 % 35-52 Automated erythrocyte mean corpuscular volume 91 [foz_us] 80-99 Automated erythrocyte mean corpuscular hemoglobin (mass per erythrocyte) 30 pg 25-34 Automated erythrocyte mean corpuscular hemoglobin concentration measurement ( mass/volume) 33 g/dL 32-36 Automated erythrocyte distribution width ratio 13.5 % 10.0-14.5 Automated blood platelet count (count/volume) 263 10*3/uL 130-400 Automated blood platelet mean volume measurement 9.7 [foz_us] 7.4-10.4 Automated blood neutrophils/100 leukocytes 50 % 42-75 Automated blood lymphocytes/100 leukocytes 38 % 12-44 Blood monocytes/100 leukocytes 9 % 0-12 Automated blood eosinophils/100 leukocytes 2 % 0-10 Automated blood basophils/100 leukocytes 1 % 0-10 Blood neutrophils automated count (number/volume) 3.6 10*3 1.8-7.8 Blood lymphocytes automated count (number/volume) 2.7 10*3 1.0-4.0 Blood monocytes automated count (number/volume) 0.7 10*3 0.0-1.0 Automated eosinophil count 0.1 10*3/uL 0.0-0.3 Automated blood basophil count (count/volume) 0.1 10*3/uL 0.0-0.1 Comprehensive metabolic panel - 06/19/16 04:25 Serum or plasma sodium measurement (moles/volume) 142 mmol/L 135-145 Serum or plasma potassium measurement (moles/volume) 3.8 mmol/L 3.6-5.0 Serum or plasma chloride measurement (moles/volume) 108 mmol/L 98-107 Carbon dioxide 22 mmol/L 21-32 Serum or plasma anion gap determination (moles/volume) 12 mmol/L 5-14 Serum or plasma urea nitrogen measurement (mass/volume) 19 mg/dL 7-18 Serum or plasma creatinine measurement (mass/volume) 0.69 mg/dL 0.60-1.30 Serum or plasma urea nitrogen/creatinine mass ratio 28 NRG Serum or plasma creatinine measurement with calculation of estimated glomerular filtration rate > NRG Serum or plasma glucose measurement (mass/volume) 116 mg/dL 70-105 Serum or plasma calcium measurement (mass/volume) 9.2 mg/dL 8.5-10.1 Serum or plasma total bilirubin measurement (mass/volume) 0.3 mg/dL 0.1-1.0 Serum or plasma alkaline phosphatase measurement (enzymatic activity/volume) 55 U/L 40-136 Serum or plasma aspartate aminotransferase measurement (enzymatic activity/ volume) 16 U/L 5-34 Serum or plasma alanine aminotransferase measurement (enzymatic activity/volume ) 23 U/L 0-55 Serum or plasma protein measurement (mass/volume) 6.1 g/dL 6.4-8.2 Serum or plasma albumin measurement (mass/volume) 3.8 g/dL 3.2-4.5 Lipid 1996 panel - 06/19/16 04:25 Serum or plasma triglyceride measurement (mass/volume) 183 mg/dL <150 Serum or plasma cholesterol measurement (mass/volume) 169 mg/dL < 200 Serum or plasma cholesterol in HDL measurement (mass/volume) 39 mg/ dL 40-60 Cholesterol in LDL [mass/volume] in serum or plasma by direct assay 111 mg/dL 1-129 Serum or plasma cholesterol in VLDL measurement (mass/volume) 37 mg/ dL 5-40 Capillary blood glucose measurement by glucometer (mass/volume) - 06/19/16 11: 17 Capillary blood glucose measurement by glucometer (mass/volume) 116 mg/dL 70-110 Capillary blood glucose measurement by glucometer (mass/volume) - 06/19/16 15: 32 Capillary blood glucose measurement by glucometer (mass/volume) 89 mg/dL 70-110 Capillary blood glucose measurement by glucometer (mass/volume) - 06/19/16 22: 27 Capillary blood glucose measurement by glucometer (mass/volume) 173 mg/dL 70-110 Capillary blood glucose measurement by glucometer (mass/volume) - 06/20/16 06: 05 Capillary blood glucose measurement by glucometer (mass/volume) 117 mg/dL 70-110 Capillary blood glucose measurement by glucometer (mass/volume) - 06/20/16 09: 45 Capillary blood glucose measurement by glucometer (mass/volume) 181 mg/dL 70-110 Influenza virus A and B antigen detection - 12/20/17 20:37 CALL POSITIVES (F1 HELP) [facility] FLU RESULT POSITIVE FOR INFLUENZA B ANTIGEN, NEG FOR A ANTIGEN, BY [facility] Complete blood count (CBC) with automated white blood cell (WBC) differential - 12/20/17 20:44 Blood leukocytes automated count (number/volume) 8.4 10*3/uL 4.3-11.0 Blood erythrocytes automated count (number/volume) 4.55 10*6/uL 4.35-5.85 Venous blood hemoglobin measurement (mass/volume) 12.8 g/dL 11.5-16.0 Blood hematocrit (volume fraction) 39 % 35-52 Automated erythrocyte mean corpuscular volume 85 [foz_us] 80-99 Automated erythrocyte mean corpuscular hemoglobin (mass per erythrocyte) 28 pg 25-34 Automated erythrocyte mean corpuscular hemoglobin concentration measurement ( mass/volume) 33 g/dL 32-36 Automated erythrocyte distribution width ratio 15.5 % 10.0-14.5 Automated blood platelet count (count/volume) 264 10*3/uL 130-400 Automated blood platelet mean volume measurement 9.7 [foz_us] 7.4-10.4 Automated blood neutrophils/100 leukocytes 63 % 42-75 Automated blood lymphocytes/100 leukocytes 22 % 12-44 Blood monocytes/100 leukocytes 12 % 0-12 Automated blood eosinophils/100 leukocytes 1 % 0-10 Automated blood basophils/100 leukocytes 1 % 0-10 Blood neutrophils automated count (number/volume) 5.3 10*3 1.8-7.8 Blood lymphocytes automated count (number/volume) 1.9 10*3 1.0-4.0 Blood monocytes automated count (number/volume) 1.0 10*3 0.0-1.0 Automated eosinophil count 0.1 10*3/uL 0.0-0.3 Automated blood basophil count (count/volume) 0.1 10*3/uL 0.0-0.1 Blood lactic acid measurement (moles/volume) - 12/20/17 20:44 Blood lactic acid measurement (moles/volume) 0.84 mmol/L 0.50-2.00 Comprehensive metabolic panel - 12/20/17 20:44 Serum or plasma sodium measurement (moles/volume) 140 mmol/L 135-145 Serum or plasma potassium measurement (moles/volume) 3.8 mmol/L 3.6-5.0 Serum or plasma chloride measurement (moles/volume) 104 mmol/L 98-107 Carbon dioxide 21 mmol/L 21-32 Serum or plasma anion gap determination (moles/volume) 15 mmol/L 5-14 Serum or plasma urea nitrogen measurement (mass/volume) 7 mg/dL 7-18 Serum or plasma creatinine measurement (mass/volume) 0.62 mg/dL 0.60-1.30 Serum or plasma urea nitrogen/creatinine mass ratio 11 NRG Serum or plasma creatinine measurement with calculation of estimated glomerular filtration rate > NRG Serum or plasma glucose measurement (mass/volume) 113 mg/dL 70-105 Serum or plasma calcium measurement (mass/volume) 9.0 mg/dL 8.5-10.1 Serum or plasma total bilirubin measurement (mass/volume) 0.4 mg/dL 0.1-1.0 Serum or plasma alkaline phosphatase measurement (enzymatic activity/volume) 53 U/L 40-136 Serum or plasma aspartate aminotransferase measurement (enzymatic activity/ volume) 20 U/L 5-34 Serum or plasma alanine aminotransferase measurement (enzymatic activity/volume ) 16 U/L 0-55 Serum or plasma protein measurement (mass/volume) 7.0 g/dL 6.4-8.2 Serum or plasma albumin measurement (mass/volume) 3.9 g/dL 3.2-4.5 Bacterial blood culture - 12/20/17 20:44 Bacterial blood culture NG NRG Bacterial blood culture - 12/20/17 21:05 Bacterial blood culture NG NRG Complete urinalysis with reflex to culture - 12/20/17 22:50 Urine color determination YELLOW NRG Urine clarity determination CLEAR NRG Urine pH measurement by test strip 7 5-9 Specific gravity of urine by test strip 1.010 1.016- 1.022 Urine protein assay by test strip, semi-quantitative NEGATIVE NEGATIVE Urine glucose detection by automated test strip NEGATIVE NEGATIVE Erythrocytes detection in urine sediment by light microscopy NEGATIVE NEGATIVE Urine ketones detection by automated test strip NEGATIVE NEGATIVE Urine nitrite detection by test strip NEGATIVE NEGATIVE Urine total bilirubin detection by test strip NEGATIVE NEGATIVE Urine urobilinogen measurement by automated test strip (mass/volume) NORMAL NORMAL Urine leukocyte esterase detection by dipstick 2+ NEGATIVE Automated urine sediment erythrocyte count by microscopy (number/high power field) RARE NRG Automated urine sediment leukocyte count by microscopy (number/high power field ) [HPF] NRG Bacteria detection in urine sediment by light microscopy TRACE NRG Squamous epithelial cells detection in urine sediment by light microscopy 0-2 NRG Crystals detection in urine sediment by light microscopy NONE NRG Casts detection in urine sediment by light microscopy NONE NRG Mucus detection in urine sediment by light microscopy NEGATIVE NRG Complete urinalysis with reflex to culture YES NRG Bacterial urine culture - 12/20/17 22:50 Bacterial urine culture [id number] NRG COLONY COUNT 10,000/ML - 100,000/ML NRG FTX;REPORTABLE SENSITIVITY REPORTED AT 0848, 2-18 NRG Bacterial susceptibility panel - 12/20/17 22:50 Gentamicin susceptibility test by minimum inhibitory concentration S NRG Vancomycin susceptibility test by minimum inhibitory concentration 1 NRG Levofloxacin susceptibility test by minimum inhibitory concentration 0.5 NRG Tetracycline susceptibility test by minimum inhibitory concentration >= NRG Ampicillin susceptibility test by minimum inhibitory concentration < = NRG Nitrofurantoin susceptibility test by minimum inhibitory concentration <= NRG Linezolid susceptibility test by minimum inhibitory concentration 2 NRG Capillary blood glucose measurement by glucometer (mass/volume) - 12/21/17 05: 03 Capillary blood glucose measurement by glucometer (mass/volume) 200 mg/dL 70-110 Complete blood count (CBC) with automated white blood cell (WBC) differential - 12/21/17 05:27 Blood leukocytes automated count (number/volume) 7.8 10*3/uL 4.3-11.0 Blood erythrocytes automated count (number/volume) 4.55 10*6/uL 4.35-5.85 Venous blood hemoglobin measurement (mass/volume) 12.9 g/dL 11.5-16.0 Blood hematocrit (volume fraction) 39 % 35-52 Automated erythrocyte mean corpuscular volume 86 [foz_us] 80-99 Automated erythrocyte mean corpuscular hemoglobin (mass per erythrocyte) 28 pg 25-34 Automated erythrocyte mean corpuscular hemoglobin concentration measurement ( mass/volume) 33 g/dL 32-36 Automated erythrocyte distribution width ratio 15.5 % 10.0-14.5 Automated blood platelet count (count/volume) 254 10*3/uL 130-400 Automated blood platelet mean volume measurement 10.0 [foz_us] 7.4-10.4 Automated blood neutrophils/100 leukocytes 81 % 42-75 Automated blood lymphocytes/100 leukocytes 14 % 12-44 Blood monocytes/100 leukocytes 5 % 0-12 Automated blood eosinophils/100 leukocytes 0 % 0-10 Automated blood basophils/100 leukocytes 0 % 0-10 Blood neutrophils automated count (number/volume) 6.3 10*3 1.8-7.8 Blood lymphocytes automated count (number/volume) 1.1 10*3 1.0-4.0 Blood monocytes automated count (number/volume) 0.4 10*3 0.0-1.0 Automated eosinophil count 0.0 10*3/uL 0.0-0.3 Automated blood basophil count (count/volume) 0.0 10*3/uL 0.0-0.1 Comprehensive metabolic panel - 12/21/17 05:27 Serum or plasma sodium measurement (moles/volume) 141 mmol/L 135-145 Serum or plasma potassium measurement (moles/volume) 3.3 mmol/L 3.6-5.0 Serum or plasma chloride measurement (moles/volume) 106 mmol/L 98-107 Carbon dioxide 24 mmol/L 21-32 Serum or plasma anion gap determination (moles/volume) 11 mmol/L 5-14 Serum or plasma urea nitrogen measurement (mass/volume) 7 mg/dL 7-18 Serum or plasma creatinine measurement (mass/volume) 0.64 mg/dL 0.60-1.30 Serum or plasma urea nitrogen/creatinine mass ratio 11 NRG Serum or plasma creatinine measurement with calculation of estimated glomerular filtration rate > NRG Serum or plasma glucose measurement (mass/volume) 183 mg/dL 70-105 Serum or plasma calcium measurement (mass/volume) 9.3 mg/dL 8.5-10.1 Serum or plasma total bilirubin measurement (mass/volume) 0.4 mg/dL 0.1-1.0 Serum or plasma alkaline phosphatase measurement (enzymatic activity/volume) 55 U/L 40-136 Serum or plasma aspartate aminotransferase measurement (enzymatic activity/ volume) 18 U/L 5-34 Serum or plasma alanine aminotransferase measurement (enzymatic activity/volume ) 17 U/L 0-55 Serum or plasma protein measurement (mass/volume) 7.0 g/dL 6.4-8.2 Serum or plasma albumin measurement (mass/volume) 4.0 g/dL 3.2-4.5 Capillary blood glucose measurement by glucometer (mass/volume) - 12/21/17 11: 06 Capillary blood glucose measurement by glucometer (mass/volume) 224 mg/dL 70-110 Capillary blood glucose measurement by glucometer (mass/volume) - 12/21/17 15: 54 Capillary blood glucose measurement by glucometer (mass/volume) 288 mg/dL 70-110 Capillary blood glucose measurement by glucometer (mass/volume) - 12/21/17 20: 13 Capillary blood glucose measurement by glucometer (mass/volume) 287 mg/dL 70-110 Capillary blood glucose measurement by glucometer (mass/volume) - 12/22/17 05: 10 Capillary blood glucose measurement by glucometer (mass/volume) 245 mg/dL 70-110 Complete blood count (CBC) with automated white blood cell (WBC) differential - 12/22/17 05:52 Blood leukocytes automated count (number/volume) 11.7 10*3/uL 4.3-11.0 Blood erythrocytes automated count (number/volume) 3.99 10*6/uL 4.35-5.85 Venous blood hemoglobin measurement (mass/volume) 11.4 g/dL 11.5-16.0 Blood hematocrit (volume fraction) 34 % 35-52 Automated erythrocyte mean corpuscular volume 86 [foz_us] 80-99 Automated erythrocyte mean corpuscular hemoglobin (mass per erythrocyte) 29 pg 25-34 Automated erythrocyte mean corpuscular hemoglobin concentration measurement ( mass/volume) 33 g/dL 32-36 Automated erythrocyte distribution width ratio 15.5 % 10.0-14.5 Automated blood platelet count (count/volume) 268 10*3/uL 130-400 Automated blood platelet mean volume measurement 10.2 [foz_us] 7.4-10.4 Automated blood neutrophils/100 leukocytes 77 % 42-75 Automated blood lymphocytes/100 leukocytes 14 % 12-44 Blood monocytes/100 leukocytes 9 % 0-12 Automated blood eosinophils/100 leukocytes 0 % 0-10 Automated blood basophils/100 leukocytes 0 % 0-10 Blood neutrophils automated count (number/volume) 9.0 10*3 1.8-7.8 Blood lymphocytes automated count (number/volume) 1.7 10*3 1.0-4.0 Blood monocytes automated count (number/volume) 1.0 10*3 0.0-1.0 Automated eosinophil count 0.0 10*3/uL 0.0-0.3 Automated blood basophil count (count/volume) 0.0 10*3/uL 0.0-0.1 Comprehensive metabolic panel - 12/22/17 05:52 Serum or plasma sodium measurement (moles/volume) 141 mmol/L 135-145 Serum or plasma potassium measurement (moles/volume) 3.4 mmol/L 3.6-5.0 Serum or plasma chloride measurement (moles/volume) 110 mmol/L 98-107 Carbon dioxide 21 mmol/L 21-32 Serum or plasma anion gap determination (moles/volume) 10 mmol/L 5-14 Serum or plasma urea nitrogen measurement (mass/volume) 15 mg/dL 7-18 Serum or plasma creatinine measurement (mass/volume) 0.64 mg/dL 0.60-1.30 Serum or plasma urea nitrogen/creatinine mass ratio 23 NRG Serum or plasma creatinine measurement with calculation of estimated glomerular filtration rate > NRG Serum or plasma glucose measurement (mass/volume) 250 mg/dL 70-105 Serum or plasma calcium measurement (mass/volume) 9.0 mg/dL 8.5-10.1 Serum or plasma total bilirubin measurement (mass/volume) 0.2 mg/dL 0.1-1.0 Serum or plasma alkaline phosphatase measurement (enzymatic activity/volume) 48 U/L 40-136 Serum or plasma aspartate aminotransferase measurement (enzymatic activity/ volume) 12 U/L 5-34 Serum or plasma alanine aminotransferase measurement (enzymatic activity/volume ) 12 U/L 0-55 Serum or plasma protein measurement (mass/volume) 5.8 g/dL 6.4-8.2 Serum or plasma albumin measurement (mass/volume) 3.5 g/dL 3.2-4.5 THYROID STIMULATING HORMONE - 12/22/17 05:52 THYROID STIMULATING HORMONE 0.24 u[iU]/mL 0.35-4.94 Hemoglobin A1c - 12/22/17 05:52 Blood hemoglobin A1C measurement (mass/volume) 6.6 % 4.0- 5.6 MEAN BLOOD GLUCOSE 143 % <=126 Capillary blood glucose measurement by glucometer (mass/volume) - 12/22/17 10: 53 Capillary blood glucose measurement by glucometer (mass/volume) 222 mg/dL 70-110 Capillary blood glucose measurement by glucometer (mass/volume) - 12/22/17 16: 01 Capillary blood glucose measurement by glucometer (mass/volume) 189 mg/dL 70-110 Capillary blood glucose measurement by glucometer (mass/volume) - 12/22/17 20: 47 Capillary blood glucose measurement by glucometer (mass/volume) 233 mg/dL 70-110 Capillary blood glucose measurement by glucometer (mass/volume) - 12/23/17 05: 16 Capillary blood glucose measurement by glucometer (mass/volume) 228 mg/dL 70-110 Complete blood count (CBC) with automated white blood cell (WBC) differential - 12/23/17 06:18 Blood leukocytes automated count (number/volume) 7.8 10*3/uL 4.3-11.0 Blood erythrocytes automated count (number/volume) 4.09 10*6/uL 4.35-5.85 Venous blood hemoglobin measurement (mass/volume) 11.7 g/dL 11.5-16.0 Blood hematocrit (volume fraction) 36 % 35-52 Automated erythrocyte mean corpuscular volume 88 [foz_us] 80-99 Automated erythrocyte mean corpuscular hemoglobin (mass per erythrocyte) 29 pg 25-34 Automated erythrocyte mean corpuscular hemoglobin concentration measurement ( mass/volume) 33 g/dL 32-36 Automated erythrocyte distribution width ratio 16.2 % 10.0-14.5 Automated blood platelet count (count/volume) 186 10*3/uL 130-400 Automated blood platelet mean volume measurement 10.2 [foz_us] 7.4-10.4 Automated blood neutrophils/100 leukocytes 77 % 42-75 Automated blood lymphocytes/100 leukocytes 18 % 12-44 Blood monocytes/100 leukocytes 5 % 0-12 Automated blood eosinophils/100 leukocytes 0 % 0-10 Automated blood basophils/100 leukocytes 0 % 0-10 Blood neutrophils automated count (number/volume) 6.1 10*3 1.8-7.8 Blood lymphocytes automated count (number/volume) 1.4 10*3 1.0-4.0 Blood monocytes automated count (number/volume) 0.4 10*3 0.0-1.0 Automated eosinophil count 0.0 10*3/uL 0.0-0.3 Automated blood basophil count (count/volume) 0.0 10*3/uL 0.0-0.1 Whole blood basic metabolic panel - 12/23/17 06:18 Serum or plasma sodium measurement (moles/volume) 139 mmol/L 135-145 Carbon dioxide 19 mmol/L 21-32 Serum or plasma anion gap determination (moles/volume) 9 mmol/L 5-14 Serum or plasma urea nitrogen measurement (mass/volume) 17 mg/dL 7-18 Serum or plasma creatinine measurement (mass/volume) 0.67 mg/dL 0.60-1.30 Serum or plasma urea nitrogen/creatinine mass ratio 25 NRG Serum or plasma creatinine measurement with calculation of estimated glomerular filtration rate > NRG Serum or plasma glucose measurement (mass/volume) 248 mg/dL 70-105 Serum or plasma calcium measurement (mass/volume) 8.3 mg/dL 8.5-10.1 Whole blood basic metabolic panel - 12/23/17 07:10 Serum or plasma sodium measurement (moles/volume) 140 mmol/L 135-145 Serum or plasma potassium measurement (moles/volume) 4.4 mmol/L 3.6-5.0 Serum or plasma chloride measurement (moles/volume) 111 mmol/L 98-107 Carbon dioxide 19 mmol/L 21-32 Serum or plasma anion gap determination (moles/volume) 10 mmol/L 5-14 Serum or plasma urea nitrogen measurement (mass/volume) 17 mg/dL 7-18 Serum or plasma creatinine measurement (mass/volume) 0.64 mg/dL 0.60-1.30 Serum or plasma urea nitrogen/creatinine mass ratio 27 NRG Serum or plasma creatinine measurement with calculation of estimated glomerular filtration rate > NRG Serum or plasma glucose measurement (mass/volume) 243 mg/dL 70-105 Serum or plasma calcium measurement (mass/volume) 8.6 mg/dL 8.5-10.1 Capillary blood glucose measurement by glucometer (mass/volume) - 12/23/17 10: 45 Capillary blood glucose measurement by glucometer (mass/volume) 276 mg/dL 70-110 Capillary blood glucose measurement by glucometer (mass/volume) - 12/23/17 16: 05 Capillary blood glucose measurement by glucometer (mass/volume) 294 mg/dL 70-110 Capillary blood glucose measurement by glucometer (mass/volume) - 12/23/17 21: 20 Capillary blood glucose measurement by glucometer (mass/volume) 221 mg/dL 70-110 Capillary blood glucose measurement by glucometer (mass/volume) - 12/24/17 05: 47 Capillary blood glucose measurement by glucometer (mass/volume) 161 mg/dL 70-110 Capillary blood glucose measurement by glucometer (mass/volume) - 12/24/17 11: 05 Capillary blood glucose measurement by glucometer (mass/volume) 303 mg/dL 70-110 Capillary blood glucose measurement by glucometer (mass/volume) - 12/24/17 16: 07 Capillary blood glucose measurement by glucometer (mass/volume) 218 mg/dL 70-110 Complete blood count (CBC) with automated white blood cell (WBC) differential - 01/03/18 15:35 Blood leukocytes automated count (number/volume) 9.5 10*3/uL 4.3-11.0 Blood erythrocytes automated count (number/volume) 4.25 10*6/uL 4.35-5.85 Venous blood hemoglobin measurement (mass/volume) 12.2 g/dL 11.5-16.0 Blood hematocrit (volume fraction) 37 % 35-52 Automated erythrocyte mean corpuscular volume 86 [foz_us] 80-99 Automated erythrocyte mean corpuscular hemoglobin (mass per erythrocyte) 29 pg 25-34 Automated erythrocyte mean corpuscular hemoglobin concentration measurement ( mass/volume) 33 g/dL 32-36 Automated erythrocyte distribution width ratio 15.3 % 10.0-14.5 Automated blood platelet count (count/volume) 305 10*3/uL 130-400 Automated blood platelet mean volume measurement 10.2 [foz_us] 7.4-10.4 Automated blood neutrophils/100 leukocytes 61 % 42-75 Automated blood lymphocytes/100 leukocytes 30 % 12-44 Blood monocytes/100 leukocytes 7 % 0-12 Automated blood eosinophils/100 leukocytes 1 % 0-10 Automated blood basophils/100 leukocytes 1 % 0-10 Blood neutrophils automated count (number/volume) 5.8 10*3 1.8-7.8 Blood lymphocytes automated count (number/volume) 2.9 10*3 1.0-4.0 Blood monocytes automated count (number/volume) 0.7 10*3 0.0-1.0 Automated eosinophil count 0.1 10*3/uL 0.0-0.3 Automated blood basophil count (count/volume) 0.1 10*3/uL 0.0-0.1 Comprehensive metabolic panel - 01/03/18 15:35 Serum or plasma sodium measurement (moles/volume) 139 mmol/L 135-145 Serum or plasma potassium measurement (moles/volume) 3.3 mmol/L 3.6-5.0 Serum or plasma chloride measurement (moles/volume) 106 mmol/L 98-107 Carbon dioxide 22 mmol/L 21-32 Serum or plasma anion gap determination (moles/volume) 11 mmol/L 5-14 Serum or plasma urea nitrogen measurement (mass/volume) 15 mg/dL 7-18 Serum or plasma creatinine measurement (mass/volume) 0.74 mg/dL 0.60-1.30 Serum or plasma urea nitrogen/creatinine mass ratio 20 NRG Serum or plasma creatinine measurement with calculation of estimated glomerular filtration rate > NRG Serum or plasma glucose measurement (mass/volume) 253 mg/dL 70-105 Serum or plasma calcium measurement (mass/volume) 9.3 mg/dL 8.5-10.1 Serum or plasma total bilirubin measurement (mass/volume) 0.3 mg/dL 0.1-1.0 Serum or plasma alkaline phosphatase measurement (enzymatic activity/volume) 49 U/L 40-136 Serum or plasma aspartate aminotransferase measurement (enzymatic activity/ volume) 14 U/L 5-34 Serum or plasma alanine aminotransferase measurement (enzymatic activity/volume ) 17 U/L 0-55 Serum or plasma protein measurement (mass/volume) 6.7 g/dL 6.4-8.2 Serum or plasma albumin measurement (mass/volume) 3.9 g/dL 3.2-4.5 Serum or plasma troponin i.cardiac measurement (mass/volume) - 01/03/18 15:35 Serum or plasma troponin i.cardiac measurement (mass/volume) < ng/ mL <0.30 Encounters ACCT No. Visit Date/Time Discharge Status Pt. Type Provider Facility Loc./Unit Complaint [id number] 12/20/2017 21:50:00 12/24/2017 18:13:00 DIS Outpatient MEGAN FORTE, ALLAN Espino [facility] 4TH INFLUENZA B; COPD EXACERBATION [id number] 12/15/2017 15:33:00 12/15/2017 23:59:59 CLS Preadmit AZAR RODARTE MD [facility] CARD CAD [id number] 12/15/2017 15:27:00 12/15/2017 23:59:59 CLS Preadmit AZAR RODARTE MD [facility] CARD CAD [id number] 11/13/2017 08:38:00 11/13/2017 23:59:59 CLS Outpatient MADL, MARIA L INTERNATIONAL COORDINATOR [facility] RAD Z78.0 POST MENOPAUSAL [id number] 11/10/2017 09:00:00 11/10/2017 23:59:59 CLS Preadmit GLENDY MCKEON MD [facility] ENDO SCREENING [id number] 11/04/2017 05:19:00 11/04/2017 23:59:59 CLS Outpatient GLENDY MCKEON MD [facility] PREOP COLONOSCOPY [id number] 10/28/2017 07:43:00 10/28/2017 23:59:59 CLS Outpatient MADL, MARIA L INTERNATIONAL COORDINATOR [facility] RAD SCREENING [id number] 10/09/2017 11:32:00 10/09/2017 23:59:59 CLS Preadmit MADL, MARIA L INTERNATIONAL COORDINATOR [facility] RAD Z12.31 SCREENING [id number] 07/08/2016 10:30:00 07/08/2016 23:59:59 CLS Preadmit SALOME BROWN, ОЛЕГ Canales [facility] CARD CAD,SHAN,HTN, HLP [id number] 04/08/2016 10:34:00 07/07/2016 00:01:00 DIS Outpatient ОЛЕГ AGUILA [facility] CARD CAD,SHAN,HTN, HLP [id number] 06/18/2016 19:00:00 06/20/2016 08:01:00 DIS Outpatient JAKY BONLILA MD [facility] CATH CHEST PAIN [id number] 05/19/2016 15:07:00 05/20/2016 15:29:00 DIS Inpatient AZRA SLADEKODI [facility] 4TH CHEST PAIN [id number] 04/02/2016 09:55:00 04/02/2016 23:59:59 CLS Outpatient AZAR RODARTE MD [facility] CAD, ELEVATED CHOLESTEROL [id number] 02/24/2016 18:31:00 02/28/2016 12:38:00 DIS Inpatient HECTOR COTTO MD [facility] 4TH RT UPPER LOBE PNEUMONIA [id number] 02/21/2016 09:38:00 02/21/2016 10:50:00 DIS Outpatient AZAR RODARTE MD [facility] CAD,HTN,HLP [id number] 07/24/2015 07:11:00 07/24/2015 23:59:59 CLS Outpatient AZAR RODARTE MD [facility] CARD CAD,NEAR SYCOPE,HTN [id number] 07/17/2015 08:28:00 07/17/2015 23:59:59 CLS Outpatient ОЛЕГ AGUILA [facility] CARD CAD,DYSPNEA, HTN,NEAR SYNCOPE [id number] 06/30/2015 13:45:00 06/30/2015 23:59:59 CLS Outpatient AZAR RODARTE MD [facility] CARD BRADYCARDIA [id number] 10/18/2014 11:27:00 10/18/2014 14:17:00 DIS Emergency GERRI HODGE [facility] ER WEAK,DIZZY, N/V [id number] 08/18/2014 08:16:00 08/18/2014 11:05:00 DIS Emergency MARILYN FUCHS MD [facility] ER WEAKNESS [id number] 02/10/2014 15:15:00 02/10/2014 17:35:00 DIS Emergency TRISHA DUNN DO [facility] ER NEAR SYNCOPE [id number] 12/22/2013 07:52:00 12/22/2013 15:25:00 DIS Outpatient AZAR RODARTE MD [facility] CATH CP,HLP,HTN, [id number] 10/11/2013 11:23:00 10/11/2013 23:59:59 CLS Outpatient JEANINE WHITTAKER DO [facility] RAD THYROID NODULES [id number] 09/28/2013 16:10:00 09/28/2013 23:59:59 CLS Outpatient MORGAN SALES DO [facility] RAD SOB,CYANOSIS [id number] 09/10/2013 20:01:00 09/11/2013 06:45:00 DIS Outpatient MORGAN SALES DO [facility] SLEEP COPD,DYSPNEA,EXCESSIVE SLEEPINESS [id number] 08/25/2013 11:34:00 08/25/2013 23:59:59 CLS Outpatient MORGAN SALES DO [facility] RT COPD,DYSPNEA [id number] 08/18/2013 07:31:00 08/18/2013 23:59:59 CLS Outpatient AZAR RODARTE MD [facility] RAD DYSPNEA,CAD,COPD [id number] 08/13/2013 07:57:00 08/13/2013 23:59:59 CLS Outpatient AZAR RODARTE MD [facility] CARD DYSPNEA,CAD,COPD [id number] 06/26/2013 14:41:00 06/26/2013 23:59:59 CLS Outpatient [id number] 06/15/2013 10:30:00 06/15/2013 23:59:59 CLS Outpatient JEANINE WHITTAKER DO [facility] RAD SCREENING [id number] 01/03/2018 17:00:00 ACT Inpatient JAKY BONILLA MD [facility] ICU CHEST PAIN, ANGINA [id number] 11/24/2015 13:37:00 Document Registration [id number] 07/17/2015 08:28:00 Document Registration [id number] 06/02/2012 22:50:00 Document Registration [id number] 05/19/2012 08:33:00 Document Registration [id number] 07/10/2011 07:30:00 Document Registration [id number] 06/26/2011 10:27:00 Document Registration [id number] 06/07/2011 02:00:00 Document Registration [id number] 08/15/2010 09:05:00 Document Registration [id number] 08/01/2010 09:03:00 Document Registration [id number] 06/28/2010 11:39:00 Document Registration [id number] 06/12/2010 13:36:00 Document Registration [id number] 02/09/2010 11:36:00 Document Registration [id number] 01/26/2007 11:54:00 Document Registration
[2018-01-03 17:35] VITALS: BP 131/74
[2018-01-03 17:45] VITALS: BP 123/66
[2018-01-03 18:00] VITALS: BP 108/56
[2018-01-03 18:15] VITALS: BP 108/56
[2018-01-03 20:00] VITALS: BP 105/62
[2018-01-03] MEDS ORDERED: ACETAMINOPHEN 500 MG TAB (TYLENOL) PO PRN (21:45)
[2018-01-04] VITALS: BP 112/58
[2018-01-04 03:34] LABS: BASOPHILS % (AUTO) 1 % (0-10); EOSINOPHILS # (AUTO) 0.1 10^3/uL (0.0-0.3); EOSINOPHILS % (AUTO) 2 % (0-10); HEMATOCRIT 38 % (35-52); HEMOGLOBIN 12.3 G/DL (11.5-16.0); LYMPHOCYTES # (AUTO) 3.1 X 10^3 (1.0-4.0); LYMPHOCYTES % (AUTO) 40 % (12-44); MEAN CORPUSCULAR HEMOGLOBIN 28 PG (25-34); MEAN CORPUSCULAR HGB CONC 33 G/DL (32-36); MEAN CORPUSCULAR VOLUME 86 FL (80-99); MEAN PLATELET VOLUME 10.2 FL (7.4-10.4); MONOCYTES # (AUTO) 0.6 X 10^3 (0.0-1.0); MONOCYTES % (AUTO) 8 % (0-12); NEUTROPHILS # (AUTO) 3.9 X 10^3 (1.8-7.8); NEUTROPHILS % (AUTO) 50 % (42-75); PLATELET COUNT 291 10^3/uL (130-400); RED BLOOD COUNT 4.34 10^6/uL (4.35-5.85); RED CELL DISTRIBUTION WIDTH 15.6 % (10.0-14.5); WHITE BLOOD COUNT 7.8 10^3/uL (4.3-11.0)
[2018-01-04 04:00] VITALS: BP 110/67
[2018-01-04 04:12] LABS: ALANINE AMINOTRANSFERASE 16 U/L (0-55); ALBUMIN 3.7 GM/DL (3.2-4.5); ALKALINE PHOSPHATASE 46 U/L (40-136); BILIRUBIN,TOTAL 0.4 MG/DL (0.1-1.0); BUN/CREATININE RATIO 24; CALCIUM 8.9 MG/DL (8.5-10.1); CARBON DIOXIDE 20 MMOL/L (21-32); CHLORIDE 109 MMOL/L (98-107); CREATININE SERUM 0.66 MG/DL (0.60-1.30); GFR ESTIMATED > 60; GLUCOSE 129 MG/DL (70-105); POTASSIUM 3.4 MMOL/L (3.6-5.0); SODIUM 142 MMOL/L (135-145); TOTAL PROTEIN 6.3 GM/DL (6.4-8.2)
[2018-01-04] MEDS ORDERED: ENOXAPARIN 80 MG/0.8 ML (LOVENOX) SYR SC SCH (05:00)
[2018-01-04] MEDS: ASPIRIN 81 MG CHEW (CHILDREN'S ASA) PO SCH (07:56)
[2018-01-04] MEDS: CLOPIDOGREL 75 MG (PLAVIX) TABLET PO SCH (07:56)
[2018-01-04 07:59] VITALS: BP 133/60
--- NOTE | 2018-01-04 10:43 | Consultation-Cardiology ---
HPI-Cardiology Cardiology Consultation: Date of Consultation 01/04/18 Time Seen by Provider: 10:00 Date of Admission Attending Physician Yoli Mosqueda MD Admitting Physician Selene Lombardi DO Consulting Physician ERNESTINE BENÍTEZ MD, MA, FACP, FACC, FSCAI, CCDS HPI: Chief Complaint: Chest discomfort HPI: 72 yo woman with chest discomfor: midsternal, radiating to mid back, lasting 30 min, mod to severe, relieved with multiple s/l NTG and oral aspirin, not recurrent since the episode yesterday, present intermittently for several years, frequency once month or so, sometimes associated with a feeling of shortness of breath Has chronic exertional shortness of breath. Has chronic mild to mod intermittent palp. Denies syncope. Denies ankle swelling. Denies recent fever or chills Review of Systems-Cardiology Review of Systems Constitutional: malaise, tiredness, No weight loss, No weight gain Eyes: No vision change Ears/Nose/Throat: No ear discharge, No nasal drainage, No recent hearing loss Respiratory: As described under HPI Cardiovascular: As described under HPI Gastrointestinal: No constipation, No diarrhea, No nausea, No vomiting Genitourinary: No dysuria, No hematuria, No urine frequency changes Musculoskeletal: back pain (chronic) Skin: No rash, No ulcerations Psychiatric/Neurological: No seizure, No focal weakness, No syncope Hematologic: No bleeding abnormalities IOI-Fjlnoa-Ocsakq Hx Patient Social History Alcohol Use: Denies Use Recreational Drug Use: No Smoking Status: Former Smoker Former smoker/When Quit: Jan 22, 2008 Type Used: Cigarettes Recent Foreign Travel: No Recent Infectious Disease Expo: No Hospitalization with Isolation: Denies Physical Abuse Screen: No Sexual Abuse: No Immunizations Up To Date Tetanus Booster (TDap): Unknown Date of Pneumonia Vaccine: Aug 03, 2017 Date of Influenza Vaccine: Aug 03, 2017 Past Medical History PMH As described under Assessment. Family Medical History Family History: Arthritis 19 FATHER Asthma 19 MOTHER Cardiovascular disease 19 MOTHER G8 BROTHER G8 SISTER G8 SISTER G8 SISTER Cataracts 19 FATHER Diabetes mellitus 19 MOTHER G8 BROTHER G8 SISTER G8 SISTER G8 SISTER Hypertension 19 MOTHER Myocardial infarction 19 MOTHER G8 SISTER G8 SISTER Parkinson's disease G8 BROTHER Prostate cancer 19 FATHER Respiratory disorder G8 BROTHER Thyroid disease 19 MOTHER Allergies and Home Medications Allergies Coded Allergies: fentanyl (Unverified Allergy, Intermediate, SEVERE NAUSEA/VOMITTING, ) Sulfa (Sulfonamide Antibiotics) (Verified Allergy, Unknown, 03/15/08) tramadol (Verified Allergy, Unknown, 09/01/08) Home Medications Acetaminophen 500 Mg Tablet, 1,000 MG PO Q6H PRN for PAIN-MILD, (Reported) TAKES 2 (500 MG) TABLETS Atorvastatin Calcium 40 Mg Tablet, 20 MG PO HS, (Reported) Clopidogrel Bisulfate 75 Mg Tablet, 75 MG PO DAILY, (Reported) Dapagliflozin Propanediol 5 Mg Tablet, 5 MG PO DAILY, (Reported) Fenofibrate 160 Mg Tablet, 160 MG PO DAILY, (Reported) Isosorbide Mononitrate 60 Mg Tab, 60 MG PO DAILY, (Reported) Levothyroxine Sodium 75 Mcg Tablet, 75 MCG PO DAILY@0630 Prescribed by: EDGAR COELLO on 12/23/17 3910 Losartan Potassium 50 Mg Tablet, 50 MG PO DAILY, (Reported) Nitroglycerin 4.9 Gm [place], 1 SPRAY SL UD PRN for CHEST PAIN, (Reported) Pantoprazole Sodium 40 Mg Tablet.dr, 40 MG PO DAILY, (Reported) Ranolazine 1,000 Mg Tab.er.12h, 1,000 MG PO BID, (Reported) Sitagliptin Phos/Metformin HCl 1 Each Tablet, 1 TAB PO BID, (Reported) Patient Home Medication List Home Medication List Reviewed: Yes Physical Exam-Cardiology Physical Exam Vital Signs/I&O Vital Sign - Last 12Hours 01/04/18 01/04/18 01/04/18 01/04/18 00:00 00:00 01:00 04:00 Temp 98.1 Pulse 52 53 Resp 12 B/P (MAP) 112/58 (76) Pulse Ox 97 97 97 O2 Delivery Room Air Room Air Room Air 01/04/18 01/04/18 01/04/18 01/04/18 04:00 07:00 07:59 08:00 Temp 98.6 96.7 Pulse 58 50 51 Resp 16 18 B/P (MAP) 110/67 (81) 133/60 (84) Pulse Ox 96 93 O2 Delivery Room Air Room Air Room Air 01/04/18 08:00 O2 Delivery Room Air Intake and Output 01/03/18 23:59 Intake Total 650 ml Balance 650 ml Capillary Refill : Less Than 3 Seconds Constitutional: AAO x 3, well-developed, well-nourished HEENT: hearing is well preserved, oral hygience is good, No xanthelasmas are seen Neck: No carotid bruit, carotid pulses are 2 + bilaterally, with good upstrokes Respiratory: No accessory muscle use, lungs clear to auscultation, No rhonchi, No rales, No stridor, No wheezing Cardiovascular: regular rate-rhythm, S1 and S2, systolic murmur (soft BELKYS at card base) Gastrointestinal: No tender, soft, No guarding, No rebound, audible bowel sounds Extremities: No clubbing, No cyanosis, No significant edema Neurologic/Psychiatric: oriented x 3, grossly intact, power is 5/5 both on sides Skin: No rash on exposed areas, No ulcerations on exposed areas Data Review Labs Laboratory Tests 01/03/18 15:35: White Blood Count 9.5, Red Blood Count 4.25L, Hemoglobin 12.2, Hematocrit 37, Mean Corpuscular Volume 86, Mean Corpuscular Hemoglobin 29, Mean Corpuscular Hemoglobin Concent 33, Red Cell Distribution Width 15.3H, Platelet Count 305, Mean Platelet Volume 10.2, Neutrophils (%) (Auto) 61, Lymphocytes (%) (Auto) 30 , Monocytes (%) (Auto) 7, Eosinophils (%) (Auto) 1, Basophils (%) (Auto) 1, Neutrophils # (Auto) 5.8, Lymphocytes # (Auto) 2.9, Monocytes # (Auto) 0.7, Eosinophils # (Auto) 0.1, Basophils # (Auto) 0.1, Sodium Level 139, Potassium Level 3.3L, Chloride Level 106, Carbon Dioxide Level 22, Anion Gap 11, Blood Urea Nitrogen 15, Creatinine 0.74, Estimat Glomerular Filtration Rate > 60, BUN/ Creatinine Ratio 20, Glucose Level 253H, Calcium Level 9.3, Total Bilirubin 0.3 , Aspartate Amino Transf (AST/SGOT) 14, Alanine Aminotransferase (ALT/SGPT) 17, Alkaline Phosphatase 49, Troponin I < 0.30, Total Protein 6.7, Albumin 3.9 01/03/18 21:03: Troponin I < 0.30 01/04/18 03:15: White Blood Count 7.8, Red Blood Count 4.34L, Hemoglobin 12.3, Hematocrit 38, Mean Corpuscular Volume 86, Mean Corpuscular Hemoglobin 28, Mean Corpuscular Hemoglobin Concent 33, Red Cell Distribution Width 15.6H, Platelet Count 291, Mean Platelet Volume 10.2, Neutrophils (%) (Auto) 50, Lymphocytes (%) (Auto) 40 , Monocytes (%) (Auto) 8, Eosinophils (%) (Auto) 2, Basophils (%) (Auto) 1, Neutrophils # (Auto) 3.9, Lymphocytes # (Auto) 3.1, Monocytes # (Auto) 0.6, Eosinophils # (Auto) 0.1, Basophils # (Auto) 0.0, Sodium Level 142, Potassium Level 3.4L, Chloride Level 109H, Carbon Dioxide Level 20L, Anion Gap 13, Blood Urea Nitrogen 16, Creatinine 0.66, Estimat Glomerular Filtration Rate > 60, BUN/ Creatinine Ratio 24, Glucose Level 129H, Calcium Level 8.9, Total Bilirubin 0.4 , Aspartate Amino Transf (AST/SGOT) 14, Alanine Aminotransferase (ALT/SGPT) 16, Alkaline Phosphatase 46, Troponin I < 0.30, Total Protein 6.3L, Albumin 3.7 01/04/18 09:33: Troponin I < 0.30 Laboratory Tests 01/03/18 15:35 01/04/18 03:15 A/P-Cardiology Assessment/Admission Diagnosis Chest pain w/o evidence of OK. Probably recurrence of chronic angina Coronary artery disease, history of CABG x 3 in 2006, most recent cardiac catheterization done June 19, 2016 revealed severe multivessel coronary artery disease. The LAD is occluded proximally, The GALLEGOS to the LAD is atretic and occluded. Vein graft to the diagonal artery is patent, filling retrograde the LAD. Ostium of the diagonal branch was moderate to severe stenosis not amenable to intervention. Left circumflex is moderate in size with 50 percent stenosis at the midportion. First obtuse marginal branch is occluded and the vein graft to the OM branch is occluded. Right coronary artery is the dominant artery, moderate in size with mild disease, nonobstructive disease. Treated conservatively Hypertension Hyperlipidemia COPD-followed by her i o psychologist Mild bilateral nonobstructive carotid stenosis per carotid duplex on June 2016 , followed by Dr Campbell Sick sinus syndrome with bradycardia, intolerance to beta blockers. She has history of asymptomatic bradycardia Hypothyroidism-managed by primary care physician Discussion and Recomendations * No evidence of OK * Optimize meds * Cannot give bb due to reasons noted above * Replenish K * Increase amublation * Monitor labs * I reviewed her records and discussed her CV issues with her and answered questions Clinical Quality Measures AMI/AHF: ASA po Prior to arrival: No DVT/VTE Risk/Contraindication: Risk Factor Score Per Nursin RFS Level Per Nursing on Admit: 2=Moderate ERNESTINE BENÍTEZ MD FACP FAC CCDS Jan 04, 2018 10:43
[2018-01-04] MEDS ORDERED: KCL 20 MEQ TAB (K-DUR) PO ONE (11:00)
[2018-01-04] MEDS ORDERED: ISOSORBIDE MONONITRATE 30 MG (IMDUR) TAB PO ONE (11:00)
[2018-01-04 11:37] VITALS: BP 114/63
[2018-01-04] MEDS ORDERED: FUROSEMIDE 40 MG/4 ML INJ (LASIX) IVP ONE (14:00)
[2018-01-04] MEDS ORDERED: KCL 10 MEQ TAB (MICRO K) PO ONE (14:00)
--- NOTE | 2018-01-04 14:35 | History & Physicial (CHS) ---
HPI History of Present Illness: Pleasant 72yo woman with known CAD, s/p 3 vessel bypass and stent placement, presented to ER with complaints of progressive angina starting yesterday afternoon. Patient had been out shopping and eaten an egg roll when she noticed she was having a "twinge in her chest." She waiting for aobut a half hour and noticed the pain was increasing. She eventually took a spray of her NTG and required 3 sprays to feel any better. Her boyfriend then called the ambulance due to the severity of her chest pain. She did not have accompanying nausea or SOB, no radiation of the pain. She reports compliance with her medication regimen. She follows with Dr Campbell who has scheduled a stress test for mid-January as well as an echo. SHe has not had a cath in around 18months. Source: patient Exam Limitations: no limitations Date seen by provider: Jan 04, 2018 Time Seen by Provider: 09:00 Attending Physician Jaky Carreno MD PCP Selene Lombardi DO Consult Date of Admission Jan 03, 2018 at 5:00 pm Home Medications Home Medications Reviewed patient Home Medication Reconciliation Form Allergies Coded Allergies: fentanyl (Unverified Allergy, Intermediate, SEVERE NAUSEA/VOMITTING, ) Sulfa (Sulfonamide Antibiotics) (Verified Allergy, Unknown, 03/15/08) tramadol (Verified Allergy, Unknown, 09/01/08) KLN-Szuncg-Lyixuh Hx Patient Social History Alcohol Use: Denies Use Recreational Drug Use: No Smoking Status: Former Smoker Former smoker/When Quit: Jan 22, 2008 Type Used: Cigarettes Recent Foreign Travel: No Contact w/other who traveled: No Recent Hopitalizations: Yes Recent Infectious Disease Expo: No Physical Abuse Screen: No Sexual Abuse: No Immunizations Up To Date Tetanus Booster (TDap): Unknown Date of Pneumonia Vaccine: Aug 03, 2017 Date of Influenza Vaccine: Aug 03, 2017 Past Medical History COPD with supplemental oxygen use 1-2 L baseline NIDDM HLD CAD s/p bypass x 3 Hypothyroidism HTN Family Medical History Family History: Arthritis 19 FATHER Asthma 19 MOTHER Cardiovascular disease 19 MOTHER G8 BROTHER G8 SISTER G8 SISTER G8 SISTER Cataracts 19 FATHER Diabetes mellitus 19 MOTHER G8 BROTHER G8 SISTER G8 SISTER G8 SISTER Hypertension 19 MOTHER Myocardial infarction 19 MOTHER G8 SISTER G8 SISTER Parkinson's disease G8 BROTHER Prostate cancer 19 FATHER Respiratory disorder G8 BROTHER Thyroid disease 19 MOTHER Review of Systems (CHC) Constitutional: no symptoms reported All Other Systems Reviewed Negative Unless Noted: Yes Reviewed Test Results Reviewed Test Results Lab Laboratory Tests Test 01/03/18 15:35 01/03/18 21:03 01/04/18 03:15 01/04/18 09:33 Range/Units White Blood Count 9.5 7.8 4.3-11.0 10^3/uL Red Blood Count 4.25 L 4.34 L 4.35-5.85 10^6/uL Hemoglobin 12.2 12.3 11.5-16.0 G/DL Hematocrit 37 38 35-52 % Mean Corpuscular Volume 86 86 80-99 FL Mean Corpuscular Hemoglobin 29 28 25-34 PG Mean Corpuscular Hemoglobin Concent 33 33 32-36 G/DL Red Cell Distribution Width 15.3 H 15.6 H 10.0-14.5 % Platelet Count 305 291 130-400 10^3/uL Mean Platelet Volume 10.2 10.2 7.4-10.4 FL Neutrophils (%) (Auto) 61 50 42-75 % Lymphocytes (%) (Auto) 30 40 12-44 % Monocytes (%) (Auto) 7 8 0-12 % Eosinophils (%) (Auto) 1 2 0-10 % Basophils (%) (Auto) 1 1 0-10 % Neutrophils # (Auto) 5.8 3.9 1.8-7.8 X 10^3 Lymphocytes # (Auto) 2.9 3.1 1.0-4.0 X 10^3 Monocytes # (Auto) 0.7 0.6 0.0-1.0 X 10^3 Eosinophils # (Auto) 0.1 0.1 0.0-0.3 10^3/uL Basophils # (Auto) 0.1 0.0 0.0-0.1 10^3/uL Sodium Level 139 142 135-145 MMOL/L Potassium Level 3.3 L 3.4 L 3.6-5.0 MMOL/L Chloride Level 106 109 H 98-107 MMOL/L Carbon Dioxide Level 22 20 L 21-32 MMOL/L Anion Gap 11 13 5-14 MMOL/L Blood Urea Nitrogen 15 16 7-18 MG/DL Creatinine 0.74 0.66 0.60-1.30 MG/DL Estimat Glomerular Filtration Rate > 60 > 60 BUN/Creatinine Ratio 20 24 Glucose Level 253 H 129 H 70-105 MG/DL Calcium Level 9.3 8.9 8.5-10.1 MG/DL Total Bilirubin 0.3 0.4 0.1-1.0 MG/DL Aspartate Amino Transf (AST/SGOT) 14 14 5-34 U/L Alanine Aminotransferase (ALT/SGPT) 17 16 0-55 U/L Alkaline Phosphatase 49 46 40-136 U/L Troponin I < 0.30 < 0.30 < 0.30 < 0.30 <0.30 NG/ML Total Protein 6.7 6.3 L 6.4-8.2 GM/DL Albumin 3.9 3.7 3.2-4.5 GM/DL Physical Exam-([facility]) Physical Exam Vital Signs VS - Last 72 Hours, by Label 01/03/18 01/03/18 01/03/18 01/03/18 15:09 17:15 17:34 17:35 Temp 98.4 98.2 97.0 Pulse 78 57 58 55 Resp 24 19 23 B/P (MAP) 135/87 (103) 130/62 131/74 (93) Pulse Ox 96 98 96 O2 Delivery Nasal Cannula Nasal Cannula Room Air O2 Flow Rate 2.00 2.00 01/03/18 01/03/18 01/03/18 01/03/18 17:45 17:45 18:00 18:15 Pulse 60 59 57 Resp 20 14 11 B/P (MAP) 123/66 (85) 108/56 (73) 108/56 (73) Pulse Ox 97 93 97 O2 Delivery Room Air Room Air Room Air Room Air 01/03/18 01/03/18 01/03/18 01/03/18 19:00 20:00 20:00 21:00 Pulse 63 58 Resp 16 B/P (MAP) 105/62 (76) Pulse Ox 97 97 97 O2 Delivery Room Air Room Air Room Air O2 Flow Rate 2.00 2.00 01/04/18 01/04/18 01/04/18 01/04/18 00:00 00:00 01:00 04:00 Temp 98.1 Pulse 52 53 Resp 12 B/P (MAP) 112/58 (76) Pulse Ox 97 97 97 O2 Delivery Room Air Room Air Room Air 01/04/18 01/04/18 01/04/18 01/04/18 04:00 07:00 07:59 08:00 Temp 98.6 96.7 Pulse 58 50 51 Resp 16 18 B/P (MAP) 110/67 (81) 133/60 (84) Pulse Ox 96 93 O2 Delivery Room Air Room Air Room Air 01/04/18 01/04/18 01/04/18 01/04/18 08:00 11:37 11:40 13:00 Temp 96.8 Pulse 50 55 Resp 20 B/P (MAP) 114/63 (80) Pulse Ox 98 O2 Delivery Room Air Room Air Room Air Capillary Refill : Less Than 3 Seconds General Appearance: WD/WN, no apparent distress HEENT: PERRL/EOMI, normal ENT inspection, pharynx normal Neck: non-tender, full range of motion, supple, normal inspection Respiratory: chest non-tender, lungs clear, normal breath sounds, no respiratory distress, no accessory muscle use Cardiovascular: regular rate, rhythm, no edema, no gallop, no JVD, no murmur Peripheral Pulses: 2+ Dorsalis Pedis (R), 2+ Left Dors-Pedis (L) Gastrointestinal: normal bowel sounds, non tender, soft, no organomegaly, no pulsatile mass Extremities: normal range of motion, non-tender, normal inspection, no pedal edema, no calf tenderness, normal capillary refill Neurologic/Psychiatric: taxi servicer II-XII nml as tested, no motor/sensory deficits, alert, normal mood/affect, oriented x 3 Skin: normal color, warm/dry Assessment/Plan Assessment/Plan Admission Dx CHRONIC STABLE ANGINA CAD ESSENTIAL HYPERTENSION HYPERLIPIDEMIA TYPE 2 DIABETES MELLITUS Admission Status: Inpatient Order (span 2 midnights) Reason for Inpatient Admission: PATIENT HAS COMPLICATED CORONARY DISEASE. HAVE RULED OUT ACTIVE EVOLVING ACS. WILL DEFER TO DR CAMPBELL TOMORROW FOR CATH VERSUS STRESS TEST BEFORE DISCHARGE.. Assessment & Plan CHRONIC STABLE ANGINA CAD Admission: ACS ruled out today. Will plan for stress test versus cath tomorrow. Dr Araujo kindly saw [facility] patient today and has made no changes to her medication regimen. She does not tolerate a BB but is otherwise on ASA, Plavix, ARB, statin. Does not tolerate BB. ESSENTIAL HYPERTENSION Stable on home regimen HYPERLIPIDEMIA Continue statin. TYPE 2 DIABETES MELLITUS Admission: Continue home regimen. BS fairly well controlled at home. DVT Proph: Ambulate TID GI Proph: Home PPI Clinical Quality Measures AMI/AHF: ASA po Prior to arrival: No DVT/VTE Risk/Contraindication: Risk Factor Score Per Nursin RFS Level Per Nursing on Admit: 2=Moderate Copy Copies To 1: JAKY CARRENO MD, JULIE A MD Jan 04, 2018 2:35 pm
[2018-01-04 15:10] VITALS: BP 108/63
[2018-01-04] MEDS ORDERED: LEVO75TA6 PO (16:02)
[2018-01-04] MEDS: inSUlin ASPART (NovoLOG) 1 UNIT/0.01 ML (CHARGE PER UNIT) SC SCH ×2 (16:30→20:59)
[2018-01-04 20:00] VITALS: BP 103/53
[2018-01-04] MEDS: RANOLAZINE ER 500 MG TAB (RANEXA) PO SCH (21:04)
[2018-01-05] VITALS: BP 92/44
[2018-01-05 03:30] LABS: BASOPHILS % (AUTO) 1 % (0-10); EOSINOPHILS # (AUTO) 0.1 10^3/uL (0.0-0.3); EOSINOPHILS % (AUTO) 2 % (0-10); HEMATOCRIT 38 % (35-52); HEMOGLOBIN 12.6 G/DL (11.5-16.0); LYMPHOCYTES % (AUTO) 43 % (12-44); MEAN CORPUSCULAR HEMOGLOBIN 29 PG (25-34); MEAN CORPUSCULAR HGB CONC 33 G/DL (32-36); MEAN CORPUSCULAR VOLUME 87 FL (80-99); MEAN PLATELET VOLUME 10.2 FL (7.4-10.4); MONOCYTES # (AUTO) 0.7 X 10^3 (0.0-1.0); MONOCYTES % (AUTO) 9 % (0-12); NEUTROPHILS # (AUTO) 3.2 X 10^3 (1.8-7.8); NEUTROPHILS % (AUTO) 46 % (42-75); PLATELET COUNT 259 10^3/uL (130-400); RED BLOOD COUNT 4.39 10^6/uL (4.35-5.85); RED CELL DISTRIBUTION WIDTH 15.8 % (10.0-14.5)
[2018-01-05 03:58] LABS: BUN/CREATININE RATIO 23; CALCIUM 9.2 MG/DL (8.5-10.1); CARBON DIOXIDE 22 MMOL/L (21-32); CHLORIDE 111 MMOL/L (98-107); CREATININE SERUM 0.66 MG/DL (0.60-1.30); GFR ESTIMATED > 60; GLUCOSE 140 MG/DL (70-105); MAGNESIUM 2.3 MG/DL (1.8-2.4); SODIUM 141 MMOL/L (135-145)
[2018-01-05 04:00] VITALS: BP 91/45
[2018-01-05] MEDS: inSUlin ASPART (NovoLOG) 1 UNIT/0.01 ML (CHARGE PER UNIT) SC SCH (05:21)
[2018-01-05] MEDS ORDERED: LEVOTHYROXINE 75 MCG (LEVOTHROID) TABLET PO SCH (06:30)
[2018-01-05] MEDS ORDERED: FUROSEMIDE 40 MG (LASIX) TAB PO SCH (09:00)
[2018-01-05] MEDS ORDERED: NON-FORMULARY MEDICATION 1 EA EA (Dapagliflozin Propanediol (Farxiga) 5 MG) PO SCH (09:00)
[2018-01-05] MEDS ORDERED: ISOSORBIDE MONONITRATE 60 MG (IMDUR) TAB PO SCH (09:00)
[2018-01-05] MEDS ORDERED: FENOFIBRATE 134 MG (LOFIBRA) CAPSULE PO SCH (09:00)
[2018-01-05] MEDS ORDERED: LOSARTAN 50 MG (COZAAR) TAB PO SCH (09:00)
[2018-01-05] MEDS ORDERED: ISOSORBIDE MONONITRATE 30 MG (IMDUR) TAB PO SCH (09:00)
[2018-01-05] MEDS ORDERED: KCL 10 MEQ TAB (MICRO K) PO SCH (09:00)
[2018-01-05] MEDS ORDERED: CLOPIDOGREL 75 MG (PLAVIX) TABLET PO SCH (09:00)
[2018-01-05] MEDS ORDERED: PANTOPRAZOLE 40 MG (PROTONIX) TAB PO SCH (09:00)
[2018-01-05] MEDS ORDERED: metFORMIN 500 MG (GLUCOPHAGE) TAB PO SCH (09:16)
[2018-01-05] MEDS ORDERED: LINAGLIPTIN (TRADJENTA) 5 MG TABLET PO SCH (09:30)
[2018-01-05 09:40] VITALS: BP 115/67
--- NOTE | 2018-01-05 10:20 | Cardiology Progress Note ---
Subjective Date Seen by Provider: Jan 05, 2018 Time Seen by Provider: 10:16 Subjective/Events-last exam Patient is laying down in bed, feeling well. Reported that she had an episode of chest pain lasted for about half an hour on Friday, called EMT, she felt better after 3 sublingual nitroglycerin nitro paste. Since then for the last 48 hours she did not have any further episodes of chest pain or shortness of breath. No palpitation. She was hospitalized recently for influenza and acute exacerbation of COPD. She is requesting to go home, she has a stress test scheduled for January 19, 2018. Review of Systems General: No Chills, No Night Sweats, No Fatigue, No Malaise, No Appetite, No Other HEENT: No Head Aches, No Visual Changes, No Eye Pain, No Ear Pain, No Dysphasia , No Sinus Congestion, No Post Nasal Drip, No Sore Throat, No Other Pulmonary: Dyspnea, No Cough, No Pleuritic Chest Pain, No Other Cardiovascular: Chest Pain, No: Palpitations, Orthopnea, Paroxysmal Noc. Dyspnea, Edema, Lt Headedness, Other Objective-Cardiology Exam Last Set of Vital Signs Vital Signs 01/03/18 01/05/18 01/05/18 21:00 04:00 09:40 Temp 96.7 Pulse 46 Resp 18 B/P (MAP) 115/67 (83) Pulse Ox 96 O2 Delivery Room Air O2 Flow Rate 2.00 Capillary Refill : Less Than 3 Seconds I&O Intake and Output 01/05/18 00:00 Intake Total 2075 ml Balance 2075 ml Intake Oral 2075 ml # Voids 8 # Bowel Movements 2 General: Alert, Oriented X3, Cooperative HEENT: Atraumatic, PERRLA Neck: Supple, No JVD, No Thyromegaly Lungs: Clear to Auscultation, Normal Air Movement Heart: Regular Rate, Normal S1, Normal S2, No Murmurs Abdomen: Normal Bowel Sounds, Soft, No Tenderness, No Hepatosplenomegaly, No Masses Extremities: No Clubbing, No Cyanosis, No Edema, Normal Pulses, No Tenderness/ Swelling Skin: No Rashes, No Breakdown, No Significant Lesion Neuro: Normal Gait, Normal Speech, Strength at 5/5 X4 Ext, Normal Tone, Sensation Intact Psych/Mental Status: Mental Status NL, Mood NL Results Lab Laboratory Tests 01/05/18 03:10 A/P-Cardiology Admission Diagnosis Chest pain resembling angina Coronary artery disease COPD Hypertension Hyperlipidemia Assessment/Plan Chest pain resembling angina, patient had history of recurrent chest pain, worsened 2 days ago, for the last 48 hours no further episode of chest pain, EKG did not show any changes, cardiac enzymes were negative. Patient is requesting to go home, we discussed the management plan, she is scheduled for a stress test on January 19, 2018. If she started having more frequent episodes of chest pain I will consider proceeding with cardiac catheterization otherwise we will discharge home and do her stress test and echocardiogram as an outpatient. COPD, status post acute exacerbation, was hospitalized recently and improved. Had influenza that has improved. Feeling better at this time. No significant dyspnea beyond her baseline. She is followed by Dr. Gutierrez and primary care physician Coronary artery disease, history of CABG x 3 in 2006, most recent cardiac catheterization done June 19, 2016 revealed severe multivessel coronary artery disease. The LAD is occluded proximally, The GALLEGOS to the LAD is atretic and occluded. Vein graft to the diagonal artery is patent, filling retrograde the LAD. Ostium of the diagonal branch was moderate to severe stenosis not amenable to intervention. Left circumflex is moderate in size with 50 percent stenosis at the midportion. First obtuse marginal branch is occluded and the vein graft to the OM branch is occluded. Right coronary artery is the dominant artery, moderate in size with mild disease, nonobstructive disease. Management as described above Hypertension, continue on home medications and monitor Hyperlipidemia, lipid profile was done in August 2017 showing total cholesterol 135, HDL 33, triglyceride 180, LDL 66. Continue on current medications and monitor Mild bilateral nonobstructive carotid stenosis per carotid duplex on June 2016 , I will evaluate carotid ultrasound Sick sinus syndrome with bradycardia, intolerance to beta blockers. She is status post Linq implantation, and then extraction secondary to a Linq device protruding from the skin, unfortunately, shortly after Linq device was removed, she has developed frequent episodes of dizziness lightheadedness, mainly with walking. She has history of asymptomatic bradycardia. Most recent 48 hour Holter monitor done revealed sinus rhythm with occasional PVCs. Currently feeling better. Continue to monitor Hypothyroidism-managed by primary care physician Clinical Quality Measures AMI/AHF: ASA po Prior to arrival: No DVT/VTE Risk/Contraindication: Risk Factor Score Per Nursin RFS Level Per Nursing on Admit: 2=Moderate AZAR RODARTE MD Jan 05, 2018 10:19
[2018-01-05] MEDS: CLOPIDOGREL 75 MG (PLAVIX) TABLET PO SCH (10:22)
[2018-01-05] MEDS: ASPIRIN 81 MG CHEW (CHILDREN'S ASA) PO SCH (10:22)
[2018-01-05] MEDS: RANOLAZINE ER 500 MG TAB (RANEXA) PO SCH (10:23)
[2018-01-05] MEDS ORDERED: ASPI-999 PO (12:52)
--- NOTE | 2018-01-05 13:12 | Discharge Instructions ---
Discharge [facility] Discharge Medications New, Converted or Re-Newed RX: Other New Medications: Aspirin (Aspirin) 81 Mg Tab.chew 81 MG PO DAILY, #30 TAB Continued Medications: Acetaminophen (Acetaminophen) 500 Mg Tablet 1000 MG PO Q6H PRN for PAIN-MILD, TAB TAKES 2 (500 MG) TABLETS Atorvastatin Calcium (Atorvastatin Calcium) 40 Mg Tablet 40 MG PO HS Clopidogrel Bisulfate (Clopidogrel) 75 Mg Tablet 75 MG PO DAILY, TAB Dapagliflozin Propanediol (Farxiga) 5 Mg Tablet 5 MG PO DAILY Fenofibrate (Fenofibrate) 160 Mg Tablet 160 MG PO DAILY Isosorbide Mononitrate (Isosorbide Mononitrate ER) 60 Mg Tab 60 MG PO DAILY, TAB Levothyroxine Sodium (Levothyroxine Sodium) 75 Mcg Tablet 75 MCG PO DAILY, TAB Losartan Potassium (Losartan Potassium) 50 Mg Tablet 50 MG PO DAILY Nitroglycerin (Nitroglycerin) 4.9 [address]m [facility] 1 SPRAY SL UD PRN for CHEST PAIN Pantoprazole Sodium (Pantoprazole Sodium) 40 Mg Tablet.dr 40 MG PO DAILY, TAB Ranolazine (Ranexa) 1,000 Mg Tab.er.12h 1000 MG PO BID, TAB Sitagliptin Phos/Metformin HCl (Janumet 50-1,000 mg Tablet) 1 Each Tablet 1 TAB PO BID, TAB Patient Instructions Goal/Follow Up Appt: Hermila Ortiz 01/14 at 3pm as previously scheduled Please also attend your echo and stress test appointments this month as previously scheduled. Patient Instructions: Please take all medications as prescribed. Please attend all tests and follow up appointments. [facility] to [facility] For: increasing chest pain, shortness of breath Activity & Diet Discharge Diet: Low Fat/Low Cholesterol, Cardiac Diet Activity as Tolerated: Yes Copy Copies To 1: JAKY GAMEZ APRN, MD Jan 05, 2018 1:03 pm
[2018-01-05 13:30] VITALS: BP 115/67
--- NOTE | 2018-01-05 13:35 | Discharge Summary ---
Diagnosis/Chief Complaint Date of Admission Jan 03, 2018 at 5:00 pm Date of Discharge January 05, 2018 Admission Diagnosis Admission Diagnosis KINDLY SEE BELOW Discharge Diagnosis CHRONIC STABLE ANGINA CAD Admission: ACS ruled out today. Will plan for stress test versus cath tomorrow. Dr Araujo kindly saw [facility] patient today and has made no changes to her medication regimen. She does not tolerate a BB but is otherwise on ASA, Plavix, ARB, statin. Does not tolerate BB. Discharge: Dr Campbell saw the patient today. He does not feel a cath is necessary at this point and wants the patient to follow up with her scheduled echo and stress tests. no changes to medical regimen today. ESSENTIAL HYPERTENSION Stable on home regimen HYPERLIPIDEMIA Continue statin. TYPE 2 DIABETES MELLITUS Admission: Continue home regimen. BS fairly well controlled at home. Chief Complaint/HPI Chief Complaint/HPI Pleasant 72yo woman with known CAD, s/p 3 vessel bypass and stent placement, presented to ER with complaints of progressive angina starting yesterday afternoon. Patient had been out shopping and eaten an egg roll when she noticed she was having a "twinge in her chest." She waiting for aobut a half hour and noticed the pain was increasing. She eventually took a spray of her NTG and required 3 sprays to feel any better. Her boyfriend then called the ambulance due to the severity of her chest pain. She did not have accompanying nausea or SOB, no radiation of the pain. She reports compliance with her medication regimen. She follows with Dr Campbell who has scheduled a stress test for mid-January as well as an echo. SHe has not had a cath in around 18months. Discharge Summary-Simple/Stand Consultations Discharge Physical Examination Allergies: Coded Allergies: fentanyl (Unverified Allergy, Intermediate, SEVERE NAUSEA/VOMITTING, ) Sulfa (Sulfonamide Antibiotics) (Verified Allergy, Unknown, 03/15/08) tramadol (Verified Allergy, Unknown, 09/01/08) Vitals & I&Os Vital Sign - Last 12Hours Date Time Temp Pulse Resp B/P (MAP) Pulse Ox O2 Delivery O2 Flow Rate FiO2 01/05/18 09:40 46 18 115/67 (83) 96 Room Air 01/05/18 04:00 96.7 01/03/18 21:00 2.00 Intake and Output 01/05/18 00:00 Intake Total 1750 ml Balance 1750 ml General Appearance: Alert, Oriented X3, Cooperative, No Acute Distress Respiratory: Clear to Auscultation, Normal Air Movement Cardiovascular: Regular Rate, Normal S1, Normal S2, No Murmurs, Gallops, Rubs Abdominal: Normal Bowel Sounds, Soft, No Tenderness, No Hepatosplenomegaly, No Masses Extremities: No Clubbing, No Cyanosis, No Edema Neuro: Normal Speech Psych/Mental Status: Mental Status NL, Mood NL Hospital Course See final discharge diagnosis. Labs Laboratory Tests Test 01/03/18 15:35 01/03/18 21:03 01/04/18 03:15 01/04/18 09:33 Range/Units White Blood Count 9.5 7.8 4.3-11.0 10^3/uL Red Blood Count 4.25 L 4.34 L 4.35-5.85 10^6/uL Hemoglobin 12.2 12.3 11.5-16.0 G/DL Hematocrit 37 38 35-52 % Mean Corpuscular Volume 86 86 80-99 FL Mean Corpuscular Hemoglobin 29 28 25-34 PG Mean Corpuscular Hemoglobin Concent 33 33 32-36 G/DL Red Cell Distribution Width 15.3 H 15.6 H 10.0-14.5 % Platelet Count 305 291 130-400 10^3/uL Mean Platelet Volume 10.2 10.2 7.4-10.4 FL Neutrophils (%) (Auto) 61 50 42-75 % Lymphocytes (%) (Auto) 30 40 12-44 % Monocytes (%) (Auto) 7 8 0-12 % Eosinophils (%) (Auto) 1 2 0-10 % Basophils (%) (Auto) 1 1 0-10 % Neutrophils # (Auto) 5.8 3.9 1.8-7.8 X 10^3 Lymphocytes # (Auto) 2.9 3.1 1.0-4.0 X 10^3 Monocytes # (Auto) 0.7 0.6 0.0-1.0 X 10^3 Eosinophils # (Auto) 0.1 0.1 0.0-0.3 10^3/uL Basophils # (Auto) 0.1 0.0 0.0-0.1 10^3/uL Sodium Level 139 142 135-145 MMOL/L Potassium Level 3.3 L 3.4 L 3.6-5.0 MMOL/L Chloride Level 106 109 H 98-107 MMOL/L Carbon Dioxide Level 22 20 L 21-32 MMOL/L Anion Gap 11 13 5-14 MMOL/L Blood Urea Nitrogen 15 16 7-18 MG/DL Creatinine 0.74 0.66 0.60-1.30 MG/DL Estimat Glomerular Filtration Rate > 60 > 60 BUN/Creatinine Ratio 20 24 Glucose Level 253 H 129 H 70-105 MG/DL Calcium Level 9.3 8.9 8.5-10.1 MG/DL Total Bilirubin 0.3 0.4 0.1-1.0 MG/DL Aspartate Amino Transf (AST/SGOT) 14 14 5-34 U/L Alanine Aminotransferase (ALT/SGPT) 17 16 0-55 U/L Alkaline Phosphatase 49 46 40-136 U/L Troponin I < 0.30 < 0.30 < 0.30 < 0.30 <0.30 NG/ML Total Protein 6.7 6.3 L 6.4-8.2 GM/DL Albumin 3.9 3.7 3.2-4.5 GM/DL Test 01/04/18 16:28 01/04/18 20:58 01/05/18 03:10 Range/Units Glucometer 169 H 159 H 70-110 MG/DL White Blood Count 7.0 4.3-11.0 10^3/uL Red Blood Count 4.39 4.35-5.85 10^6/uL Hemoglobin 12.6 11.5-16.0 G/DL Hematocrit 38 35-52 % Mean Corpuscular Volume 87 80-99 FL Mean Corpuscular Hemoglobin 29 25-34 PG Mean Corpuscular Hemoglobin Concent 33 32-36 G/DL Red Cell Distribution Width 15.8 H 10.0-14.5 % Platelet Count 259 130-400 10^3/uL Mean Platelet Volume 10.2 7.4-10.4 FL Neutrophils (%) (Auto) 46 42-75 % Lymphocytes (%) (Auto) 43 12-44 % Monocytes (%) (Auto) 9 0-12 % Eosinophils (%) (Auto) 2 0-10 % Basophils (%) (Auto) 1 0-10 % Neutrophils # (Auto) 3.2 1.8-7.8 X 10^3 Lymphocytes # (Auto) 3.0 1.0-4.0 X 10^3 Monocytes # (Auto) 0.7 0.0-1.0 X 10^3 Eosinophils # (Auto) 0.1 0.0-0.3 10^3/uL Basophils # (Auto) 0.0 0.0-0.1 10^3/uL Sodium Level 141 135-145 MMOL/L Potassium Level 4.0 3.6-5.0 MMOL/L Chloride Level 111 H 98-107 MMOL/L Carbon Dioxide Level 22 21-32 MMOL/L Anion Gap 8 5-14 MMOL/L Blood Urea Nitrogen 15 7-18 MG/DL Creatinine 0.66 0.60-1.30 MG/DL Estimat Glomerular Filtration Rate > 60 BUN/Creatinine Ratio 23 Glucose Level 140 H 70-105 MG/DL Calcium Level 9.2 8.5-10.1 MG/DL Magnesium Level 2.3 1.8-2.4 MG/DL Thyroid Stimulating Hormone (TSH) 3.06 0.35-4.94 UIU/ML Discharge Instructions to patient/family Please see electronic discharge instructions given to patient. Discharge Medications Reviewed and agree with Discharge Medication list on patient's Discharge Instruction sheet Clinical Quality Measures AMI/AHF: ASA po Prior to arrival: No DVT/VTE Risk/Contraindication: Risk Factor Score Per Nursin RFS Level Per Nursing on Admit: 2=Moderate Copy Copies To 1: JAKY GAMEZ APRN, MD Jan 05, 2018 1:35 pm
== END 2018-01-05 14:00 | disposition home or self-care (01) | DRG 303 ==
LOC: ER 15:03 → EDUNIT# 15:03 → ICU 17:00
PROVIDERS: ADMIT Pediatrics; ATTEND Pediatrics
DX: I25.118 Atherosclerotic heart disease of native coronary artery with other forms of angina pectoris (principal); J44.9 Chronic obstructive pulmonary disease, unspecified; R00.1 Bradycardia, unspecified; I49.5 Sick sinus syndrome; I10 Essential (primary) hypertension; I25.2 Old myocardial infarction; E78.5 Hyperlipidemia, unspecified; E11.9 Type 2 diabetes mellitus without complications; E03.9 Hypothyroidism, unspecified; I65.23 Occlusion and stenosis of bilateral carotid arteries; K44.9 Diaphragmatic hernia without obstruction or gangrene; K21.9 Gastro-esophageal reflux disease without esophagitis; M19.91 Primary osteoarthritis, unspecified site; M54.9 Dorsalgia, unspecified; Z95.1 Presence of aortocoronary bypass graft; Z95.5 Presence of coronary angioplasty implant and graft; Z99.81 Dependence on supplemental oxygen; Z87.891 Personal history of nicotine dependence; Z79.84 Long term (current) use of oral hypoglycemic drugs; Z86.73 Personal history of transient ischemic attack (TIA), and cerebral infarction without residual deficits; Z87.01 Personal history of pneumonia (recurrent)
CPT/HCPCS: 36415; 71045; 80048; 80053; 82962; 83735; 84443; 84484; 85025; 96372

== ENCOUNTER → 2018-01-14 | Outpatient (CLI) | payer MEDICARE, MEDICAID ==
[~2018-01-14] MED LIST changes: +ASPI-999 PO; +LEVO75TA6 PO
== END ==
LOC: CARD 11:35
PROVIDERS: ATTEND Internal Medicine Cardiovascular Disease
DX: I25.10 Atherosclerotic heart disease of native coronary artery without angina pectoris (principal); R07.9 Chest pain, unspecified; I10 Essential (primary) hypertension; E78.5 Hyperlipidemia, unspecified; I34.0 Nonrheumatic mitral (valve) insufficiency
CPT/HCPCS: 93306

== ENCOUNTER → 2018-01-19 | Outpatient (CLI) | payer MEDICARE, MEDICAID ==
[~2018-01-19] VITALS: Ht 152.4 cm; Wt 72.1 kg
[~2018-01-19] MED LIST changes: +CATHETER FLUSH 10 ML SYR IV PRN; +REGADENOSON 0.4 MG/5 ML SYR (LEXISCAN) IV ONE
[2018-01-19 09:20] VITALS: BP 148/81
--- NOTE | 2018-01-19 19:27 | STRESS TEST ---
DATE OF SERVICE: 01/19/2018 LEXISCAN MYOVIEW STRESS TEST REPORT REFERRING PHYSICIAN: Dr. Selene Lombardi, [facility]. Baseline heart rate is 58. Baseline blood pressure is 144/70. Baseline EKG is sinus rhythm with no ischemic changes. In summary, the patient was injected with 10.13 mCi of technetium-99 Myoview and the resting images were obtained. Then, the patient received 0.4 mg of Lexiscan followed by 31.6 mCi of technetium-99 Myoview. Throughout the test, there were no EKG changes. The resting and stress images were reviewed and compared in the short axis, horizontal long axis, and vertical long axis views. Review of the images showed breast attenuation with typical female pattern. No significant ischemia or infarction was seen. SSS is 3, SDS 3, TID value 1.09. On the gated images, the left ventricle appeared to be in normal size with normal contractility. Calculated ejection fraction 75%. CONCLUSION: 1. The patient tolerated Lexiscan well. 2. Typical female pattern with no significant ischemia or infarction on SPECT images. 3. Normal left ventricular size with normal contractility. Calculated ejection fraction 75%. Job ID: [id number] DocumentID: [id number] Dictated Date: 01/19/2018 16:18:58 [employer] Date: 01/19/2018 18:46:55 Dictated By: AZAR RODARTE MD
== END ==
LOC: CARD 07:30
PROVIDERS: ATTEND Internal Medicine Cardiovascular Disease
DX: I25.10 Atherosclerotic heart disease of native coronary artery without angina pectoris (principal); I10 Essential (primary) hypertension; E78.2 Mixed hyperlipidemia; R07.9 Chest pain, unspecified
CPT/HCPCS: 78452; 93017

== ENCOUNTER 2018-04-02 20:45 | Emergency (ER) | payer MEDICARE, MEDICAID ==
[~2018-04-02] VITALS: Ht 152.4 cm; Wt 70.8 kg
[~2018-04-02 20:45] MED LIST changes: -CATHETER FLUSH 10 ML SYR IV PRN; -REGADENOSON 0.4 MG/5 ML SYR (LEXISCAN) IV ONE
[2018-04-02] MEDS ORDERED: TETANUS,DIPTH,PERTUSS P/F (BOOSTRIX) 0.5 ML VIAL IM STA (20:51)
--- OUTSIDE RECORDS SUMMARY | 2018-04-02 20:51 | XMS REPORT ---
Author Author MARIA MACKEY [facility] Address [address] [place] [address] Care Team Providers Care [employer] Name Role Phone MARIA MACKEY Unavailable PROBLEMS Type Condition ICD9-CM Code CAL00-GI Code Onset Dates Condition Status SNOMED Code Problem Angina at rest I20.8 Active 17624651 Problem Peptic ulcer K27.9 Active 68211884 Problem Constipation K59.00 Active 20868971 Problem Hospital discharge follow-up Z09 Active 961871623 Problem History of CVA (cerebrovascular accident) Z86.73 Active 234609112 Problem Type 2 diabetes mellitus without complication, without long-term current use of insulin E11.9 Active 147768677 Problem Hyperlipidemia LDL goal <100 E78.5 Active 75893201 Problem 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 Active 0247973888712 Problem 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 Active 395152476458 Problem Former smoker Z87.891 Active 0273581 Problem Hypothyroid E03.9 Active 43721907 Problem COPD (chronic obstructive pulmonary disease) J44.9 Active 56064406 Problem Osteopenia of spine M85.88 Active 702819021 Problem GERD (gastroesophageal reflux disease) K21.9 Active 547985183 ALLERGIES No Information ENCOUNTERS Encounter Location Date Diagnosis [facility] [id number] [address] Apr, [facility] [address] [address] March, Hypothyroid E03.9 [facility] [id number] [place] [address] 03041- 5969 March, Hypercholesterolemia E78.00 [facility] [id number] [address] Feb, Hypercholesterolemia E78.00 [facility] [address] [address] Feb, Type 2 diabetes mellitus without complication, without long- term current use of insulin E11.9 [facility] [address] [address] Feb, Hypothyroid E03.9 [facility] [id number] [place] [address] 26027- 7825 14 Jan, 2018 Hypothyroid E03.9 ; 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 ; Hospital discharge follow-up Z09 ; Type 2 diabetes mellitus without complication, without long-term current use of insulin E11.9 ; 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 and History of CVA (cerebrovascular accident) Z86.73 [facility] [id number] [place] [address] 94101- 5821 Jan, [facility] [id number] [place] [address] 68344- 0196 Jan, [facility] [id number] [place] [address] 08020- 8456 06 Jan, 2018 Type 2 diabetes mellitus without complication, without long- term current use of insulin E11.9 [facility] [address] [address] 27 Dec, 2017 Hospital discharge follow-up Z09 ; COPD (chronic obstructive pulmonary disease) J44.9 ; Type 2 diabetes mellitus without complication, without long-term current use of insulin E11.9 ; Hypothyroid E03.9 and Vaginal discharge N89.8 [facility] [address] [address] Dec, Hypothyroid E03.9 [facility] [id number] [place] [address] 24423- 6361 Dec, Type 2 diabetes mellitus without complication, without long- term current use of insulin E11.9 [facility] [id number] [place] [address] 00484- 6341 Nov, [facility] [address] [address] Nov, [facility] [address] [place] [address] 24069- 4129 Nov, Pneumonia of right lower lobe due to infectious organism J18.1 ; Orthopnea R06.01 ; COPD with acute exacerbation J44.1 and Fatigue, unspecified type R53.83 [facility] [address], [place] [address] Nov, [facility] [address] [place] [address] 59093- 1984 Nov, [facility] [address] [place] [address] 68578- 0850 Oct, Pneumonia of right lower lobe due to infectious organism J18.1 [facility] [address] [place] [address] 41705- 7449 Oct, Pneumonia of right lower lobe due to infectious organism J18.1 [facility] [address] [place] [address] 24388- 9951 Oct, Pneumonia of right lower lobe due to infectious organism J18.1 [facility] [address] [address] 2385 Oct, COPD exacerbation J44.1 [facility] [address] [address] 2978 Oct, [facility] [address], [place] [address] 6300 Oct, COPD exacerbation J44.1 [facility] [address] [place] [address] 96121- 8606 Oct, Encounter for immunization Z23 and COPD (chronic obstructive pulmonary disease) J44.9 [facility] [address] [place] [address] 52909- 7711 Oct, Medicare annual wellness visit, subsequent Z00.00 ; History of tobacco use Z87.891 ; Need for Zostavax administration Z23 ; Post-menopausal Z78.0 ; Screening for breast cancer Z12.31 ; Screening for colon cancer Z12.11 ; 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 and Encounter for immunization Z23 [facility] [address] [address] Sep, Type 2 diabetes mellitus without complication, without long- term current use of insulin E11.9 [facility] [address] [place] [address] 48991- 1514 Sep, Type 2 diabetes mellitus without complication, without long- term current use of insulin E11.9 ; COPD (chronic obstructive pulmonary disease ) J44.9 ; Hypothyroid E03.9 ; GERD (gastroesophageal reflux disease) K21.9 ; CVA (cerebral vascular accident) I63.9 ; Hyperlipidemia LDL goal <100 E78.5 ; Coronary artery disease of [place] heart with stable angina pectoris, unspecified vessel or lesion type I25.118 and 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 [facility] [id number] [place] [address] 62078- 9340 Aug, Type 2 diabetes mellitus without complication, without long- term current use of insulin E11.9 [facility] [address] [address] 6658 Aug, Hypothyroid E03.9 [facility] [id number] [place] [address] 85398- 5685 Aug, Type 2 diabetes mellitus without complication, without long- term current use of insulin E11.9 ; COPD (chronic obstructive pulmonary disease ) J44.9 ; Hypothyroid E03.9 ; GERD (gastroesophageal reflux disease) K21.9 ; CVA (cerebral vascular accident) I63.9 ; Hyperlipidemia LDL goal <100 E78.5 ; Coronary artery disease of [place] heart with stable angina pectoris, unspecified vessel or lesion type I25.118 and Encounter for immunization Z23 [facility] [id number] [place] [address] 52273- 3844 Jul, Hypothyroid E03.9 and Hypercholesterolemia E78.00 [facility] [id number] [place] [address] 60474- 4495 Jul, Hypothyroid E03.9 ; Diabetes mellitus E11.9 and Hypercholesterolemia E78.0 [facility] [id number] [place] [address] 44007- 8426 Jul, Hypothyroid E03.9 ; Diabetes mellitus E11.9 and Hypercholesterolemia E78.0 [facility] [id number] [place] [address] 30243- 2366 May, CVA (cerebral vascular accident) I63.9 and Dizziness R42 [facility] [id number] [place] [address] 80133- 0469 May, Dehydration E86.0 ; CVA (cerebral vascular accident) I63.9 ; COPD (chronic obstructive pulmonary disease) J44.9 and Dizziness R42 [facility] [id number] [place] [address] 24632- 2541 March, Diabetes mellitus E11.9 ; Angina at rest I20.8 ; COPD ( chronic obstructive pulmonary disease) J44.9 ; GERD (gastroesophageal reflux disease) K21.9 ; Hypercholesterolemia E78.00 ; CVA (cerebral vascular accident) I63.9 and Hypothyroid E03.9 [facility] [id number] [place] [address] 32850- 3519 Jan, Hypothyroid E03.9 and Diabetes mellitus E11.9 [facility] [id number] [place] [address] 89787- 7873 Jan, [facility] [id number] [place] [address] 13150- 0199 Jan, Diabetes mellitus E11.9 [facility] [id number] [place] [address] 15961- 5418 Jan, [facility] [id number] [place] [address] 15869- 9498 Dec, Diabetes mellitus E11.9 ; CVA (cerebral vascular accident) I63.9 ; COPD (chronic obstructive pulmonary disease) J44.9 ; Hypothyroid E03.9 ; GERD (gastroesophageal reflux disease) K21.9 and Hypercholesterolemia E78.00 [facility] [id number] [place] [address] 77416- 1744 Nov, Diabetes mellitus E11.9 [facility] [id number] [place] [address] 63497- 0714 Nov, [facility] [id number] [place] [address] 18628- 3705 Nov, [facility] [id number] [place] [address] 06478- 0084 Nov, [facility] [id number] [place] [address] 27599- 0340 Nov, Diabetes mellitus E11.9 [facility] [id number] [place] [address] 05416- 7286 Oct, Hypothyroid E03.9 [facility] [id number] [place] [address] 53307- 5327 Oct, Diabetes mellitus E11.9 [facility] [id number] [place] [address] 79443- 9380 Oct, COPD (chronic obstructive pulmonary disease) J44.9 [facility] [id number] [place] [address] 31952- 7367 Oct, [facility] [id number] [place] [address] 69313- 8299 Sep, Diabetes mellitus E11.9 ; Angina at rest I20.8 ; Hypercholesterolemia E78.0 ; COPD (chronic obstructive pulmonary disease) J44.9 ; GERD (gastroesophageal reflux disease) K21.9 ; Dysuria R30.0 ; Acquired hypothyroidism E03.9 ; Encounter for immunization Z23 and Acute cystitis without hematuria N30.00 [facility] [id number] [place] [address] 67758- 6064 Sep, Diabetes mellitus E11.9 [facility] [address] [address] Aug, [facility] [id number] [place] [address] 03965- 6175 Aug, Diabetes mellitus E11.9 [facility] [id number] [place] [address] 77350- 4161 Jun, Angina at rest I20.8 ; CVA (cerebral vascular accident) I63.9 ; Diabetes mellitus E11.9 ; Hypercholesterolemia E78.0 ; COPD (chronic obstructive pulmonary disease) J44.9 ; GERD (gastroesophageal reflux disease) K21.9 ; Peptic ulcer K27.9 and Hypothyroid E03.9 [facility] [id number] [place] [address] 05351- 8370 Jun, [facility] [id number] [place] [address] 49500- 4983 May, Diabetes mellitus E11.9 ; CVA (cerebral vascular accident) I63.9 ; COPD (chronic obstructive pulmonary disease) J44.9 and Angina at rest I20.8 [facility] [address] [place] [address] 22547- 7853 May, [facility] [id number] [place] [address] 31777- 0280 May, Diabetes mellitus E11.9 ; Hypothyroid E03.9 ; Angina at rest I20.8 ; CVA (cerebral vascular accident) I63.9 ; COPD (chronic obstructive pulmonary disease) J44.9 ; GERD (gastroesophageal reflux disease) K21.9 and Hypercholesterolemia E78.0 [facility] [id number] [place] [address] 77942- 6513 Apr, Hypercholesterolemia E78.0 [facility] [id number] [place] [address] 52822- 1656 Apr, [facility] [id number] [place] [address] 13929- 3564 March, Diabetes mellitus E11.9 ; Hypothyroid E03.9 ; Hypercholesterolemia E78.0 ; COPD (chronic obstructive pulmonary disease) J44.9 ; GERD (gastroesophageal reflux disease) K21.9 ; Constipation K59.00 ; CVA ( cerebral vascular accident) I63.9 and Angina at rest I20.8 [facility] [address] [place] [address] 04689- 1139 March, [facility] [id number] [place] [address] 93039- 4221 Feb, [facility] [id number] [place] [address] 96344- 1742 Feb, [facility] [id number] [place] [address] 57005- 8690 Feb, [facility] [id number] [place] [address] 83945- 6840 Jan, Diabetes mellitus E11.9 ; Hypercholesterolemia E78.0 ; CVA ( cerebral vascular accident) I63.9 ; GERD (gastroesophageal reflux disease) K21.9 ; Hypothyroid E03.9 and Angina at rest I20.8 [facility] [id number] [place] [address] 56187- 3562 Dec, Diabetes mellitus E11.9 ; Hypothyroid E03.9 ; Angina at rest I20.8 ; CVA (cerebral vascular accident) I63.9 ; Hypercholesterolemia E78.0 ; COPD (chronic obstructive pulmonary disease) J44.9 ; GERD ( gastroesophageal reflux disease) K21.9 and Dysuria R30.0 [facility] [address] [place] [address] 45197- 2479 Nov, [facility] [id number] [place] [address] 99920- 2935 Nov, Hypothyroid E03.9 [facility] [id number] [place] [address] 25260- 4909 Nov, Hypothyroid E03.9 ; Angina at rest I20.8 ; CVA (cerebral vascular accident) I63.9 ; Hypercholesterolemia E78.0 ; COPD (chronic obstructive pulmonary disease) J44.9 ; GERD (gastroesophageal reflux disease) K21.9 and Diabetes E11.9 [facility] [id number] [place] [address] 46486 -6237 Oct, Upper respiratory symptom R09.89 [facility] [address] 40448- 2025 Oct, [facility] [address] 91727- 8282 Oct, [facility] [address] 53345- 9720 Oct, [facility] [address] 31544- 6710 Aug, Diabetes mellitus 250.00 ; Encounter for immunization Z23 ; Hypothyroid E03.9 ; Angina at rest I20.8 ; CVA (cerebral vascular accident) I63.9 ; Hypercholesterolemia E78.0 ; COPD (chronic obstructive pulmonary disease ) J44.9 and GERD (gastroesophageal reflux disease) K21.9 [facility] [id number] [place] [address] 34990- 1840 Jul, [facility] [id number] [place] [address] 70257- 1784 Jun, [facility] [id number] [place] [address] 31188- 5394 Jun, [facility] [id number] [place] [address] 54299- 8567 May, [facility] [address] 30008- 4549 May, Diabetes mellitus 250.00 ; Hypothyroidism 244.9 ; Angina at rest 413.9 ; CVA (cerebral infarction) 434.91 ; Hypercholesterolemia 272.0 ; COPD (chronic obstructive pulmonary disease) 496 and GERD (gastroesophageal reflux disease) 530.81 [facility] [address] [facility] [id number] [address]- 9205 30 Oct, 2010 [facility] [address] [facility] [id number]- 0846 19 Oct, 2010 [facility] [address] [facility] [id number] [address]- 4096 Oct, [facility] [address] [facility] [id number] [place] [address] 21433- 6536 Oct, [facility] [address] [facility] [id number] 2696 Sep, [facility] [address] [facility] [id number] [place] [address] 579197- 5474 Aug, [facility] [address]- 5619 15 Aug, 2010 [facility] [address], [place] [address]- 6460 15 Aug, 2010 [facility] [address], [place] [address]- 9717 Jul, [facility] [address], [place] [address]- 7663 Jan, [facility] [address], [place] [address]- 4364 Oct, [facility] [address], [place] [address]- 5658 Oct, [facility] [id number], [place] [address]- 2150 Sep, [facility] [address], [place] [address]- 6876 16 Apr, 2009 [facility] [id number], [place] [address]- 8257 10 Dec, 2008 IMMUNIZATIONS No Known Immunizations SOCIAL HISTORY Never Assessed REASON FOR VISIT Refill request PLAN OF CARE VITAL SIGNS MEDICATIONS Medication Instructions Dosage Frequency Start Date End Date Duration Status Janumet 50-1000 mg Orally Twice a day 1 tablet with meals 12h 30 days Active RESULTS No Results PROCEDURES No Known procedures INSTRUCTIONS MEDICATIONS ADMINISTERED No Known Medications MEDICAL (GENERAL) HISTORY Type Description Date Medical History Diabetic Medical History Hypothyroidism Medical History Stroke Medical History COPD Medical History GERD Medical History Ulcer Medical History COPD exacerbation 10/2017 Medical History RLL pneumonia 10/2017 Medical History Former smoker Surgical History Hysterectomy at age 27yrs old Surgical History right overy removed Surgical History CABG x3 2006 Surgical History stent 2007 Surgical History Gallbladder 2007 Surgical History cateract surgery 2010 Surgical History Linq insertion/(monitor heart rate) removed 08/2015 Surgical History heart cath 06/2016 Hospitalization History CABG x3 2007 Hospitalization History Gallbladder 2007 Hospitalization History stent 2007 Hospitalization History Right upper lobe Pneumonia 02/24/16 Hospitalization History Chest Pain--[facility] 05/19/16 Hospitalization History Chest pain--[facility] 06/18/16 Hospitalization History Influenza & COPD exacerbation 12/21 Hospitalization History Cardiac Monitoring 01/2018
--- OUTSIDE RECORDS SUMMARY | 2018-04-02 20:52 | XMS REPORT ---
Author Author MARAI MACKEY [facility] Address [address] [place] [address] Care Team Providers Care Legal Mediator Name Role Phone MARIA MACKEY Unavailable PROBLEMS Type Condition ICD9-CM Code BAI18-HL Code Onset Dates Condition Status SNOMED Code Problem Angina at rest I20.8 Active 45749868 Problem Peptic ulcer K27.9 Active 22835983 Problem Constipation K59.00 Active 22083974 Problem Hospital discharge follow-up Z09 Active 164394313 Problem History of CVA (cerebrovascular accident) Z86.73 Active 549767243 Problem Type 2 diabetes mellitus without complication, without long-term current use of insulin E11.9 Active 342041604 Problem Hyperlipidemia LDL goal <100 E78.5 Active 69764731 Problem 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 Active 7585693509142 Problem 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 Active 485706655198 Problem Former smoker Z87.891 Active 5610309 Problem Hypothyroid E03.9 Active 82976352 Problem COPD (chronic obstructive pulmonary disease) J44.9 Active 91956074 Problem Osteopenia of spine M85.88 Active 116099429 Problem GERD (gastroesophageal reflux disease) K21.9 Active 440133725 ALLERGIES No Information ENCOUNTERS Encounter Location Date Diagnosis [facility] [id number] [address] Feb, Hypercholesterolemia E78.00 [facility] [id number] [place] [address] 69791- 0580 Feb, Type 2 diabetes mellitus without complication, without long- term current use of insulin E11.9 [facility] [address] [address] Feb, Hypothyroid E03.9 [facility] [id number] [place] [address] 17252- 6261 Jan, Hypothyroid E03.9 ; 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 ; Hospital discharge follow-up Z09 ; Type 2 diabetes mellitus without complication, without long-term current use of insulin E11.9 ; 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 and History of CVA (cerebrovascular accident) Z86.73 [facility] [id number] [place] [address] 38681- 4741 Jan, [facility] [id number] [place] [address] 06603- 6606 Jan, [facility] [address] [address]- [address]38 Jan, Type 2 diabetes mellitus without complication, without long- term current use of insulin E11.9 [facility] [id number] [place] [address] 27430- 0664 27 Dec, 2017 Hospital discharge follow-up Z09 ; COPD (chronic obstructive pulmonary disease) J44.9 ; Type 2 diabetes mellitus without complication, without long-term current use of insulin E11.9 ; Hypothyroid E03.9 and Vaginal discharge N89.8 [facility] [id number] [place] [address] 20271- 0546 Dec, Hypothyroid E03.9 [facility] [id number] [place] [address] 03926- 7526 Dec, Type 2 diabetes mellitus without complication, without long- term current use of insulin E11.9 [facility] [id number] [place] [address] 30910- 1529 Nov, [facility] [id number] [place] [address] 94414- 8793 Nov, [facility] [id number] [place] [address] 48548- 6072 Nov, Pneumonia of right lower lobe due to infectious organism J18.1 ; Orthopnea R06.01 ; COPD with acute exacerbation J44.1 and Fatigue, unspecified type R53.83 [facility] [address] [address] Nov, [facility] [address] [address] 0986 Nov, [facility] [address] [address] 5294 Oct, Pneumonia of right lower lobe due to infectious organism J18.1 [facility] [address] [address] 9681 Oct, Pneumonia of right lower lobe due to infectious organism J18.1 [facility] [address] [address] 30[address] Oct, Pneumonia of right lower lobe due to infectious organism J18.1 [facility] [address] [address] 2975 Oct, COPD exacerbation J44.1 [facility] [address] [address] 9004 Oct, [facility] [address] [address] 8982 Oct, COPD exacerbation J44.1 [facility] [address] [address] 4472 Oct, Encounter for immunization Z23 and COPD (chronic obstructive pulmonary disease) J44.9 [facility] [id number] [address] 8[address] Oct, Medicare annual wellness visit, subsequent Z00.00 ; History of tobacco use Z87.891 ; Need for Zostavax administration Z23 ; Post-menopausal Z78.0 ; Screening for breast cancer Z12.31 ; Screening for colon cancer Z12.11 ; 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 and Encounter for immunization Z23 [facility] [address] [address] Sep, Type 2 diabetes mellitus without complication, without long- term current use of insulin E11.9 [facility] [id number] [place] [address] 84912- 6090 Sep, Type 2 diabetes mellitus without complication, without long- term current use of insulin E11.9 ; COPD (chronic obstructive pulmonary disease ) J44.9 ; Hypothyroid E03.9 ; GERD (gastroesophageal reflux disease) K21.9 ; CVA (cerebral vascular accident) I63.9 ; Hyperlipidemia LDL goal <100 E78.5 ; Coronary artery disease of t[place] heart with stable angina pectoris, unspecified vessel or lesion type I25.118 and 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 [facility] [address] 23541- 3355 Aug, Type 2 diabetes mellitus without complication, without long- term current use of insulin E11.9 [facility] [id number] [place] [address] 86642- 6802 Aug, Hypothyroid E03.9 [facility] [address] 84941- 2206 Aug, Type 2 diabetes mellitus without complication, without long- term current use of insulin E11.9 ; COPD (chronic obstructive pulmonary disease ) J44.9 ; Hypothyroid E03.9 ; GERD (gastroesophageal reflux disease) K21.9 ; CVA (cerebral vascular accident) I63.9 ; Hyperlipidemia LDL goal <100 E78.5 ; Coronary artery disease of t[place] heart with stable angina pectoris, unspecified vessel or lesion type I25.118 and Encounter for immunization Z23 [facility] [id number] [place] [address] 97495- 2809 Jul, Hypothyroid E03.9 and Hypercholesterolemia E78.[address] 42677- 4774 Jul, Hypothyroid E03.9 ; Diabetes mellitus E11.9 and Hypercholesterolemia E78.[address] 32759- 0552 Jul, Hypothyroid E03.9 ; Diabetes mellitus E11.9 and Hypercholesterolemia E78.0 [facility] [id number] [place] [address] 17085- 8588 May, CVA (cerebral vascular accident) I63.9 and Dizziness R42 [facility] [id number] [place] [address] 01040- 2478 May, Dehydration E86.0 ; CVA (cerebral vascular accident) I63.9 ; COPD (chronic obstructive pulmonary disease) J44.9 and Dizziness R42 [place] [id number] [place] [address] 08728- 5541 March, Diabetes mellitus E11.9 ; Angina at rest I20.8 ; COPD ( chronic obstructive pulmonary disease) J44.9 ; GERD (gastroesophageal reflux disease) K21.9 ; Hypercholesterolemia E78.00 ; CVA (cerebral vascular accident) I63.9 and Hypothyroid E03.9 [facility] [id number] [place] [address] 75480- 7496 Jan, Hypothyroid E03.9 and Diabetes mellitus E11.9 [facility] [id number] [place] [address] 88392- 3671 Jan, [facility] [id number] [place] [address] 41168- 6017 Jan, Diabetes mellitus E11.9 [facility] [id number] [place] [address] 54964- 9980 Jan, [facility] [id number] [place] [address] 29808- 7682 Dec, Diabetes mellitus E11.9 ; CVA (cerebral vascular accident) I63.9 ; COPD (chronic obstructive pulmonary disease) J44.9 ; Hypothyroid E03.9 ; GERD (gastroesophageal reflux disease) K21.9 and Hypercholesterolemia E78.00 [facility] [id number] [place] [address] 22656- 3392 Nov, Diabetes mellitus E11.9 [facility] [id number] [place] [address] 13051- 4586 Nov, [facility] [id number] [place] [address] 72314- 5907 Nov, [facility] [id number] [place] [address] 99443- 0355 Nov, [facility] [address] 12546- 9050 Nov, Diabetes mellitus E11.9 [facility] [address] 48415- 6817 Oct, Hypothyroid E03.9 [facility] [address] 29320- 1064 Oct, Diabetes mellitus E11.9 [facility] [address] 01904- 7535 Oct, COPD (chronic obstructive pulmonary disease) J44.9 [facility] [id number] [place] [address] 03896- 7189 Oct, [facility] [id number] [place] [address] 97735- 4730 Sep, Diabetes mellitus E11.9 ; Angina at rest I20.8 ; Hypercholesterolemia E78.0 ; COPD (chronic obstructive pulmonary disease) J44.9 ; GERD (gastroesophageal reflux disease) K21.9 ; Dysuria R30.0 ; Acquired hypothyroidism E03.9 ; Encounter for immunization Z23 and Acute cystitis without hematuria N30.00 [facility] [id number] [place] [address] 46852- 3813 Sep, Diabetes mellitus E11.9 [facility] [id number] [place] [address] 85541 -9265 Aug, [facility] [id number] [place] [address] 16579- 9090 Aug, Diabetes mellitus E11.9 [facility] [address] 76749- 5213 Jun, Angina at rest I20.8 ; CVA (cerebral vascular accident) I63.9 ; Diabetes mellitus E11.9 ; Hypercholesterolemia E78.0 ; COPD (chronic obstructive pulmonary disease) J44.9 ; GERD (gastroesophageal reflux disease) K21.9 ; Peptic ulcer K27.9 and Hypothyroid E03.9 [facility] [id number] [place] [address] 45934- 8994 Jun, [facility] [address] 98330- 9757 May, Diabetes mellitus E11.9 ; CVA (cerebral vascular accident) I63.9 ; COPD (chronic obstructive pulmonary disease) J44.9 and Angina at rest I20.8 [facility] [id number] [place] [address] 62363- 4175 May, [facility] [address] 32568- 8858 May, Diabetes mellitus E11.9 ; Hypothyroid E03.9 ; Angina at rest I20.8 ; CVA (cerebral vascular accident) I63.9 ; COPD (chronic obstructive pulmonary disease) J44.9 ; GERD (gastroesophageal reflux disease) K21.9 and Hypercholesterolemia E78.0 [facility] [id number] [place] [address] 61963- 5546 Apr, Hypercholesterolemia E78.0 [facility] [id number] [place] [address] 97171- 0610 Apr, [facility] [id number] [place] [address] 59493- 6239 March, Diabetes mellitus E11.9 ; Hypothyroid E03.9 ; Hypercholesterolemia E78.0 ; COPD (chronic obstructive pulmonary disease) J44.9 ; GERD (gastroesophageal reflux disease) K21.9 ; Constipation K59.00 ; CVA ( cerebral vascular accident) I63.9 and Angina at rest I20.8 [facility] [id number] [place] [address] 02564- 0212 March, [facility] [id number] [place] [address] 85356- 1766 Feb, [facility] [id number] [place] [address] 56958- 9122 Feb, [facility] [id number] [place] [address] 57766- 7880 Feb, [facility] [address] 20109- 7544 Jan, Diabetes mellitus E11.9 ; Hypercholesterolemia E78.0 ; CVA ( cerebral vascular accident) I63.9 ; GERD (gastroesophageal reflux disease) K21.9 ; Hypothyroid E03.9 and Angina at rest I20.8 [facility] [id number] [place] [address] 45275- 9597 Dec, Diabetes mellitus E11.9 ; Hypothyroid E03.9 ; Angina at rest I20.8 ; CVA (cerebral vascular accident) I63.9 ; Hypercholesterolemia E78.0 ; COPD (chronic obstructive pulmonary disease) J44.9 ; GERD ( gastroesophageal reflux disease) K21.9 and Dysuria R30.0 [facility] [id number] [place] [address] 58114- 9188 Nov, [facility] [id number] [place] [address] 60219- 3205 Nov, Hypothyroid E03.9 [facility] [id number] [place] [address] 61812- 2639 Nov, Hypothyroid E03.9 ; Angina at rest I20.8 ; CVA (cerebral vascular accident) I63.9 ; Hypercholesterolemia E78.0 ; COPD (chronic obstructive pulmonary disease) J44.9 ; GERD (gastroesophageal reflux disease) K21.9 and Diabetes E11.9 [facility] [id number] [place] [address] 72732 -1309 Oct, Upper respiratory symptom R09.89 [facility] [address] [place] [address]- 6163 Oct, [facility] [id number] [place] [address] 19810- 4868 Oct, [facility] [address] 95044- 1001 Oct, [facility] [address] 95151- 6638 Aug, Diabetes mellitus 250.00 ; Encounter for immunization Z23 ; Hypothyroid E03.9 ; Angina at rest I20.8 ; CVA (cerebral vascular accident) I63.9 ; Hypercholesterolemia E78.0 ; COPD (chronic obstructive pulmonary disease ) J44.9 and GERD (gastroesophageal reflux disease) K21.9 [facility] [id number] [place] [address] 28833- 1861 Jul, [facility] [address] 28508- 9951 Jun, [facility] [address] 29527- 8181 Jun, [facility] [address] 03397- 5749 May, [facility] [id number] [place] [address] 19431- 6516 May, Diabetes mellitus 250.00 ; Hypothyroidism 244.9 ; Angina at rest 413.9 ; CVA (cerebral infarction) 434.91 ; Hypercholesterolemia 272.0 ; COPD (chronic obstructive pulmonary disease) 496 and GERD (gastroesophageal reflux disease) 530.81 [facility] [id number] [place] [address] 14861- 1075 Oct, [facility] [address] 75736- 3370 Oct, [facility] [id number] [place] [address] 77323- 5716 Oct, [facility] [address] [place] [address]- 6114 Oct, [facility] [address] [address]- 3982 Sep, [facility] [address] [address]- 5691 Aug, [facility] [address] [address]- 9307 Aug, [facility] [address] 5007 Aug, [facility] [id number] [place] [address] 232332- 3296 Jul, [facility] [id number] [place] [address] 25476- 6705 Jan, [facility] [id number] [place] [address] 087856- 4402 Oct, [facility] [address], [place] [address]- 2068 Oct, [facility] [address] 4807 Sep, [facility] [address] [address]- 1500 Apr, [facility] [address] 0463 Dec, IMMUNIZATIONS No Known Immunizations SOCIAL HISTORY Never Assessed REASON FOR VISIT Deferred Lab/Med Refill--ADaviedRN PLAN OF CARE VITAL SIGNS MEDICATIONS Medication Instructions Dosage Frequency Start Date End Date Duration Status Levothyroxine Sodium 100 MCG Orally Once a day 1 tablet 24h Nov, Active RESULTS No Results PROCEDURES No Known [...] right overy removed Surgical History CABG x3 2007 Surgical History stent 2006 Surgical History Gallbladder 2006 Surgical History cateract surgery 2010 Surgical History Linq insertion/(monitor heart rate) removed 08/2015 Surgical History heart cath 06/2016 Hospitalization History CABG x3 2007 Hospitalization History Gallbladder 2007 Hospitalization History stent 2006 Hospitalization History Right upper lobe Pneumonia 02/24/16 Hospitalization History Chest Pain--[facility] 05/19/16 Hospitalization History Chest pain--[facility] 06/18/16 Hospitalization History Influenza & COPD exacerbation 12/21 Hospitalization History Cardiac Monitoring 01/2018
--- OUTSIDE RECORDS SUMMARY | 2018-04-02 20:54 | XMS REPORT ---
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 Name Role Phone ANASTASIA Layne Unavailable PROBLEMS Type Condition ICD9-CM Code EJZ38-EM Code Onset Dates Condition Status SNOMED Code Problem Angina at rest I20.8 Active 83673802 Problem Peptic ulcer K27.9 Active 42292493 Problem Constipation K59.00 Active 54131152 Problem Hospital discharge follow-up Z09 Active 532666722 Problem History of CVA (cerebrovascular accident) Z86.73 Active 244721127 Problem Type 2 diabetes mellitus without complication, without long-term current use of insulin E11.9 Active 442076516 Problem Hyperlipidemia LDL goal <100 E78.5 Active 06311929 Problem 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 Active 9866596301848 Problem 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 Active 018897572724 Problem Former smoker Z87.891 Active 3505518 Problem Hypothyroid E03.9 Active 37069393 Problem COPD (chronic obstructive pulmonary disease) J44.9 Active 39950122 Problem Osteopenia of spine M85.88 Active 739926833 Problem GERD (gastroesophageal reflux disease) K21.9 Active 672428004 ALLERGIES Substance Reaction Event Type Date Status Ultram hives Drug Allergy Jul, Active Fentanyl hives Drug Allergy Jul, Active ENCOUNTERS Encounter Location Date Diagnosis [facility] [id number] [address] Feb, Type 2 diabetes mellitus without complication, without long- term current use of insulin E11.9 [facility] [id number] [address] 03 Feb, 2018 Hypothyroid E03.9 [facility] [id number] [address] Jan, Hypothyroid E03.9 ; 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 ; Hospital discharge follow-up Z09 ; Type 2 diabetes mellitus without complication, without long-term current use of insulin E11.9 ; 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 and History of CVA (cerebrovascular accident) Z86.73 [facility] [id number] [place] [address] 22496- 1466 Jan, [facility] [id number] [place] [address] 94590- 1504 Jan, [facility] [id number] [place] [address] 50913- 1472 Jan, Type 2 diabetes mellitus without complication, without long- term current use of insulin E11.9 [facility] [id number] [place] [address] 31470- 7615 27 Dec, 2017 Hospital discharge follow-up Z09 ; COPD (chronic obstructive pulmonary disease) J44.9 ; Type 2 diabetes mellitus without complication, without long-term current use of insulin E11.9 ; Hypothyroid E03.9 and Vaginal discharge N89.8 [facility] [id number] [place] [address] 74583- 5697 Dec, Hypothyroid E03.9 [facility] [id number] [place] [address] 97079- 8966 Dec, Type 2 diabetes mellitus without complication, without long- term current use of insulin E11.9 [facility] [id number] [place] [address] 67746- 3341 Nov, [facility] [id number] [place] [address] 97628- 0407 Nov, [facility] [id number] [place] [address] 41354- 5314 Nov, Pneumonia of right lower lobe due to infectious organism J18.1 ; Orthopnea R06.01 ; COPD with acute exacerbation J44.1 and Fatigue, unspecified type R53.83 [facility] [address] [address] Nov, [facility] [address] [address] 89[address] Nov, [facility] [address] [address] Oct, Pneumonia of right lower lobe due to infectious organism J18.1 [facility] [address] [address] 4[address] Oct, Pneumonia of right lower lobe due to infectious organism J18.1 [facility] [id number] [place] [address] 03566- 9203 Oct, Pneumonia of right lower lobe due to infectious organism J18.1 [facility] [address] [address] 1304 Oct, COPD exacerbation J44.1 [facility] [address] [address] 0388 Oct, [facility] [id number] [place] [address] 84049- 3396 Oct, COPD exacerbation J44.1 [facility] [address] [address] 7659 Oct, Encounter for immunization Z23 and COPD (chronic obstructive pulmonary disease) J44.9 [facility] [address] [address] Oct, Medicare annual wellness visit, subsequent Z00.00 ; History of tobacco use Z87.891 ; Need for Zostavax administration Z23 ; Post-menopausal Z78.0 ; Screening for breast cancer Z12.31 ; Screening for colon cancer Z12.11 ; 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 and Encounter for immunization Z23 [facility] [facility] [address] [address] Sep, Type 2 diabetes mellitus without complication, without long- term current use of insulin E11.9 [facility] [id number] [place] [address] 71180- 4504 Sep, Type 2 diabetes mellitus without complication, without long- term current use of insulin E11.9 ; COPD (chronic obstructive pulmonary disease ) J44.9 ; Hypothyroid E03.9 ; GERD (gastroesophageal reflux disease) K21.9 ; CVA (cerebral vascular accident) I63.9 ; Hyperlipidemia LDL goal <100 E78.5 ; Coronary artery disease of [place] heart with stable angina pectoris, unspecified vessel or lesion type I25.118 and 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 [facility] [address] [address]- 4399 Aug, Type 2 diabetes mellitus without complication, without long- term current use of insulin E11.9 [facility] [address] 5[address]84- 4281 Aug, Hypothyroid E03.9 [facility] [address] 94112- 0879 Aug, Type 2 diabetes mellitus without complication, without long- term current use of insulin E11.9 ; COPD (chronic obstructive pulmonary disease ) J44.9 ; Hypothyroid E03.9 ; GERD (gastroesophageal reflux disease) K21.9 ; CVA (cerebral vascular accident) I63.9 ; Hyperlipidemia LDL goal <100 E78.5 ; Coronary artery disease of [place] heart with stable angina pectoris, unspecified vessel or lesion type I25.118 and Encounter for immunization Z23 [facility] [id number] [place] [address] 43236- 8854 Jul, Hypothyroid E03.9 and Hypercholesterolemia E78.[address] [address]- [address] Jul, Hypothyroid E03.9 ; Diabetes mellitus E11.9 and Hypercholesterolemia E78.0 [facility] [address] [address]- 9319 Jul, Hypothyroid E03.9 ; Diabetes mellitus E11.9 and Hypercholesterolemia E78.0 [facility] [id number] [place] [address] 31834- 2750 May, CVA (cerebral vascular accident) I63.9 and Dizziness R42 [facility] [id number] [place] [address] 77300- 2566 May, Dehydration E86.0 ; CVA (cerebral vascular accident) I63.9 ; COPD (chronic obstructive pulmonary disease) J44.9 and Dizziness R42 [facility] [id number] [place] [address] 92492- 9072 March, Diabetes mellitus E11.9 ; Angina at rest I20.8 ; COPD ( chronic obstructive pulmonary disease) J44.9 ; GERD (gastroesophageal reflux disease) K21.9 ; Hypercholesterolemia E78.00 ; CVA (cerebral vascular accident) I63.9 and Hypothyroid E03.9 [facility] [id number] [place] [address] 61728- 5961 Jan, Hypothyroid E03.9 and Diabetes mellitus E11.9 [facility] [id number] [place] [address] 35759- 1230 Jan, [facility] [address] [address]- 5966 Jan, Diabetes mellitus E11.9 [facility] [id number] [place] [address] 50219- 7338 Jan, [facility] [id number] [place] [address] 85399- 6884 Dec, Diabetes mellitus E11.9 ; CVA (cerebral vascular accident) I63.9 ; COPD (chronic obstructive pulmonary disease) J44.9 ; Hypothyroid E03.9 ; GERD (gastroesophageal reflux disease) K21.9 and Hypercholesterolemia E78.00 [facility] [id number] [place] [address] 56699- 1564 Nov, Diabetes mellitus E11.9 [facility] [address] 07123- 1398 Nov, [facility] [id number] [place] [address] 27205- 4712 Nov, [facility] [id number] [place] [address] 50325- 1010 Nov, [facility] [id number] [place] [address] 37575- 4228 Nov, Diabetes mellitus E11.9 [facility] [id number] [place] [address] 36931- 9701 Oct, Hypothyroid E03.9 [facility] [address] 69616- 9172 Oct, Diabetes mellitus E11.9 [facility] [id number] [place] [address] 89180- 7156 Oct, COPD (chronic obstructive pulmonary disease) J44.9 [facility] [id number] [place] [address] 58602- 0457 Oct, [facility] [id number] [place] [address] 69703- 5195 Sep, Diabetes mellitus E11.9 ; Angina at rest I20.8 ; Hypercholesterolemia E78.0 ; COPD (chronic obstructive pulmonary disease) J44.9 ; GERD (gastroesophageal reflux disease) K21.9 ; Dysuria R30.0 ; Acquired hypothyroidism E03.9 ; Encounter for immunization Z23 and Acute cystitis without hematuria N30.00 [facility] [id number] [place] [address] 46203- 0989 Sep, Diabetes mellitus E11.9 [facility] [id number] [place] [address] 50213 -8098 Aug, [facility] [id number] [place] [address] 00190- 2271 Aug, Diabetes mellitus E11.9 [facility] [id number] [place] [address] 55641- 1203 Jun, Angina at rest I20.8 ; CVA (cerebral vascular accident) I63.9 ; Diabetes mellitus E11.9 ; Hypercholesterolemia E78.0 ; COPD (chronic obstructive pulmonary disease) J44.9 ; GERD (gastroesophageal reflux disease) K21.9 ; Peptic ulcer K27.9 and Hypothyroid E03.9 [facility] [id number] [place] [address] 65539- 5023 Jun, [facility] [facility] [address] 17713- 6320 May, Diabetes mellitus E11.9 ; CVA (cerebral vascular accident) I63.9 ; COPD (chronic obstructive pulmonary disease) J44.9 and Angina at rest I20.8 [facility] [id number] [place] [address] 16429- 8074 May, [facility] [address] 93986- 1185 May, Diabetes mellitus E11.9 ; Hypothyroid E03.9 ; Angina at rest I20.8 ; CVA (cerebral vascular accident) I63.9 ; COPD (chronic obstructive pulmonary disease) J44.9 ; GERD (gastroesophageal reflux disease) K21.9 and Hypercholesterolemia E78.0 [facility] [id number] [place] [address] 39521- 0853 Apr, Hypercholesterolemia E78.0 [facility] [id number] [place] [address] 39739- 1731 Apr, [facility] [id number] [place] [address] 13800- 2489 March, Diabetes mellitus E11.9 ; Hypothyroid E03.9 ; Hypercholesterolemia E78.0 ; COPD (chronic obstructive pulmonary disease) J44.9 ; GERD (gastroesophageal reflux disease) K21.9 ; Constipation K59.00 ; CVA ( cerebral vascular accident) I63.9 and Angina at rest I20.8 [facility] [id number] [place] [address] 06054- 3403 March, [facility] [place] [id number] [place] [address] 02775- 4850 Feb, [facility] [id number] [place] [address] 96934- 1105 Feb, [facility] [id number] [place] [address] 91654- 8677 Feb, [facility] [address] 0[address]- 5450 Jan, Diabetes mellitus E11.9 ; Hypercholesterolemia E78.0 ; CVA ( cerebral vascular accident) I63.9 ; GERD (gastroesophageal reflux disease) K21.9 ; Hypothyroid E03.9 and Angina at rest I20.8 [facility] [id number] [place] [address] 69876- 1431 Dec, Diabetes mellitus E11.9 ; Hypothyroid E03.9 ; Angina at rest I20.8 ; CVA (cerebral vascular accident) I63.9 ; Hypercholesterolemia E78.0 ; COPD (chronic obstructive pulmonary disease) J44.9 ; GERD ( gastroesophageal reflux disease) K21.9 and Dysuria R30.0 [facility] [id number] [place] [address] 71904- 5079 Nov, [facility] [id number] [place] [address] 64128- 0321 Nov, Hypothyroid E03.9 [facility] [id number] [place] [address] 22129- 2738 Nov, Hypothyroid E03.9 ; Angina at rest I20.8 ; CVA (cerebral vascular accident) I63.9 ; Hypercholesterolemia E78.0 ; COPD (chronic obstructive pulmonary disease) J44.9 ; GERD (gastroesophageal reflux disease) K21.9 and Diabetes E11.9 [facility] [id number] [place] [address] 87956 -4766 Oct, Upper respiratory symptom R09.89 [facility] [id number] [place] [address] 72163- 6670 Oct, [facility] [id number] [place] [address] 37776- 1322 Oct, [facility] [address] 90113- 9407 Oct, [facility] [id number] [place] [address] 04154- 2813 Aug, Diabetes mellitus 250.00 ; Encounter for immunization Z23 ; Hypothyroid E03.9 ; Angina at rest I20.8 ; CVA (cerebral vascular accident) I63.9 ; Hypercholesterolemia E78.0 ; COPD (chronic obstructive pulmonary disease ) J44.9 and GERD (gastroesophageal reflux disease) K21.9 [facility] [id number] [place] [address] 09110- 2939 Jul, [facility] [address] 08459- 5820 Jun, [facility] [id number] [place] [address] 73505- 4512 Jun, [facility] [id number] [place] [address] 56161- 7363 May, [facility] [id number] [place] [address] 82505- 8417 May, Diabetes mellitus 250.00 ; Hypothyroidism 244.9 ; Angina at rest 413.9 ; CVA (cerebral infarction) 434.91 ; Hypercholesterolemia 272.0 ; COPD (chronic obstructive pulmonary disease) 496 and GERD (gastroesophageal reflux disease) 530.81 [facility] [id number] [place] [address] 52219- 1318 Oct, [facility] [address] 10151- 0849 Oct, [facility] [id number] [place] [address] 58182- 0578 Oct, [facility] [address] 67204- 1716 Oct, [facility] [address] [address]- 8916 Sep, [facility] [address] [address]- [address] Aug, [facility] [address] [address]- 7666 Aug, [facility] [address] [address]- 2474 Aug, [facility] [address] [address]- 3892 Jul, [facility] [address] [address]- 0506 Jan, [facility] [address] [address]- 6206 Oct, [facility] [address] [address]- 4242 Oct, [facility] [address] [address]- 3353 Sep, [facility] [address] [address]- 5026 Apr, [facility] [id number] [address]- 4148 Dec, IMMUNIZATIONS No Known Immunizations SOCIAL HISTORY Never Assessed REASON FOR VISIT Lab results PLAN OF CARE VITAL SIGNS MEDICATIONS Medication Instructions Dosage Frequency Start Date End Date Duration Status Atorvastatin Calcium 40 mg Orally Once a day at HS 1 tablet Active Isosorbide Mononitrate ER 60 MG Orally Once a day 1 tablet 24h Active NitroMist 400 MCG/SPRAY Translingual Once a day 1 spray under the tongue 24h Active OneTouch Ultra Test - In Vitro 3 times a day USE ONE STRIP TO CHECK GLUCOSE ONCE DAILY DIRECTED 8h Active Clopidogrel Bisulfate 75 MG Orally Once a day 1 tablet 24h Active Meclizine HCl 25 MG Orally 3 times a day 1 tablet as needed 8h 18 May, 2017 10 days Active Janumet 50-1000 mg Orally Twice a day 1 tablet with meals 12h Active Ranexa 1000 MG Orally Twice a day 1 tablet 12h Active Lancets test one time per day as directed Jul, Active Protonix 40 mg Orally twice a day 1 tablet 12h Active Fenofibrate 160 MG Orally Once a day 1 tablet with a meal 24h Jan, Active Acetaminophen 500 MG Orally every 6 hrs 2 tablets 6h Active Meclizine HCl 25 MG Orally 3 times a day 1 tablet as needed 8h May, 10 days Active Levothyroxine Sodium 100 MCG Orally Once a [...] History CABG x3 2006 Surgical History stent 2006 Surgical History Gallbladder 2006 Surgical History cateract surgery 2010 Surgical History Linq insertion/(monitor heart rate) removed 08/2015 Surgical History heart cath 06/2016 Hospitalization History CABG x3 2007 Hospitalization History Gallbladder 2007 Hospitalization History stent 2006 Hospitalization History Right upper lobe Pneumonia 02/24/16 Hospitalization History Chest Pain--[facility] 05/19/16 Hospitalization History Chest pain--[facility] 06/18/16 Hospitalization History Influenza & COPD exacerbation 12/21 Hospitalization History Cardiac Monitoring 01/2018
--- OUTSIDE RECORDS SUMMARY | 2018-04-02 20:54 | XMS REPORT ---
Author Author ANASTASIA Layne Organization [facility] Address [address] [place] [address] Care Team Providers Care Farm Reporter Name Role Phone ANASTASIA Layne Unavailable PROBLEMS Type Condition ICD9-CM Code VAE49-CQ Code Onset Dates Condition Status SNOMED Code Problem Angina at rest I20.8 Active 60858690 Problem Peptic ulcer K27.9 Active 13711405 Problem Constipation K59.00 Active 64382492 Problem Hospital discharge follow-up Z09 Active 738860379 Problem History of CVA (cerebrovascular accident) Z86.73 Active 144728471 Problem Type 2 diabetes mellitus without complication, without long-term current use of insulin E11.9 Active 800041633 Problem Hyperlipidemia LDL goal <100 E78.5 Active 24101369 Problem 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 Active 8698405911356 Problem 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 Active 439716430914 Problem Former smoker Z87.891 Active 4351958 Problem Hypothyroid E03.9 Active 28678052 Problem COPD (chronic obstructive pulmonary disease) J44.9 Active 57204427 Problem Osteopenia of spine M85.88 Active 389531881 Problem GERD (gastroesophageal reflux disease) K21.9 Active 953832457 ALLERGIES No Information ENCOUNTERS Encounter Location Date Diagnosis [facility] [id number] [place] [address] 20569- 0589 Feb, Type 2 diabetes mellitus without complication, without long- term current use of insulin E11.9 [facility] [id number] [place] [address] 22416- 2146 03 Feb, 2018 Hypothyroid E03.9 [facility] [id number] [place] [address] 15493- 8723 Jan, Hypothyroid E03.9 ; 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 ; Hospital discharge follow-up Z09 ; Type 2 diabetes mellitus without complication, without long-term current use of insulin E11.9 ; 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 and History of CVA (cerebrovascular accident) Z86.73 [facility] [id number] [place] [address] 15088- 9925 Jan, [facility] [id number] [place] [address] 99654- 2205 Jan, [facility] [id number] [place] [address] 11385- 7589 Jan, Type 2 diabetes mellitus without complication, without long- term current use of insulin E11.9 [facility] [id number] [place] [address] 15730- 9382 27 Dec, 2017 Hospital discharge follow-up Z09 ; COPD (chronic obstructive pulmonary disease) J44.9 ; Type 2 diabetes mellitus without complication, without long-term current use of insulin E11.9 ; Hypothyroid E03.9 and Vaginal discharge N89.8 [facility] [id number] [place] [address] 78491- 1962 Dec, Hypothyroid E03.9 [facility] [id number] [place] [address] 24544- 4744 Dec, Type 2 diabetes mellitus without complication, without long- term current use of insulin E11.9 [facility] [id number] [place] [address] 47259- 3141 Nov, [facility] [id number] [place] [address] 07627- 6321 Nov, [facility] [address] 02023- 1188 Nov, Pneumonia of right lower lobe due to infectious organism J18.1 ; Orthopnea R06.01 ; COPD with acute exacerbation J44.1 and Fatigue, unspecified type R53.83 [facility] [id number] [place] [address] 51260- 3901 Nov, [facility] [address] [address] 8056 Nov, [facility] [id number] [place] [address] 74952- 6590 Oct, Pneumonia of right lower lobe due to infectious organism J18.1 [facility] [id number] [place] [address] 96009- 4726 Oct, Pneumonia of right lower lobe due to infectious organism J18.1 [facility] [address] [address] 0092 Oct, Pneumonia of right lower lobe due to infectious organism J18.1 [facility] [id number] [place] [address] 98377- 9585 Oct, COPD exacerbation J44.1 [facility] [id number] [place] [address] 60823- 2014 Oct, [facility] [id number] [place] [address] 77890- 2895 Oct, COPD exacerbation J44.1 [facility] [id number] [place] [address] 26836- 8215 Oct, Encounter for immunization Z23 and COPD (chronic obstructive pulmonary disease) J44.9 [facility] [id number] [place] [address] 96457- 3039 Oct, Medicare annual wellness visit, subsequent Z00.00 ; History of tobacco use Z87.891 ; Need for Zostavax administration Z23 ; Post-menopausal Z78.0 ; Screening for breast cancer Z12.31 ; Screening for colon cancer Z12.11 ; 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 and Encounter for immunization Z23 [facility] [id number] [place] [address] 11965- 5489 Sep, Type 2 diabetes mellitus without complication, without long- term current use of insulin E11.9 [facility] [address] [place] [address] 12885- 2779 Sep, Type 2 diabetes mellitus without complication, without long- term current use of insulin E11.9 ; COPD (chronic obstructive pulmonary disease ) J44.9 ; Hypothyroid E03.9 ; GERD (gastroesophageal reflux disease) K21.9 ; CVA (cerebral vascular accident) I63.9 ; Hyperlipidemia LDL goal <100 E78.5 ; Coronary artery disease of pokagon heart with stable angina pectoris, unspecified vessel or lesion type I25.118 and 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 [facility] [address] 93293- 7109 Aug, Type 2 diabetes mellitus without complication, without long- term current use of insulin E11.9 [facility] [address] 42925- 9903 Aug, Hypothyroid E03.9 [facility] [address] 67283- 6405 Aug, Type 2 diabetes mellitus without complication, without long- term current use of insulin E11.9 ; COPD (chronic obstructive pulmonary disease ) J44.9 ; Hypothyroid E03.9 ; GERD (gastroesophageal reflux disease) K21.9 ; CVA (cerebral vascular accident) I63.9 ; Hyperlipidemia LDL goal <100 E78.5 ; Coronary artery disease of pok[place] heart with stable angina pectoris, unspecified vessel or lesion type I25.118 and Encounter for immunization Z23 [facility] [address] 39887- 1903 Jul, Hypothyroid E03.9 and Hypercholesterolemia E78.00 [facility] [address] 20011- 8063 Jul, Hypothyroid E03.9 ; Diabetes mellitus E11.9 and Hypercholesterolemia E78.0 [facility] [address] 56202- 9610 Jul, Hypothyroid E03.9 ; Diabetes mellitus E11.9 and Hypercholesterolemia E78.0 [facility] [address] 86250- 4721 May, CVA (cerebral vascular accident) I63.9 and Dizziness R42 [facility] [id number] [place] [address] 46768- 0784 May, Dehydration E86.0 ; CVA (cerebral vascular accident) I63.9 ; COPD (chronic obstructive pulmonary disease) J44.9 and Dizziness R42 [facility] [address] 19195- 1662 March, Diabetes mellitus E11.9 ; Angina at rest I20.8 ; COPD ( chronic obstructive pulmonary disease) J44.9 ; GERD (gastroesophageal reflux disease) K21.9 ; Hypercholesterolemia E78.00 ; CVA (cerebral vascular accident) I63.9 and Hypothyroid E03.9 [facility] [address] 18819- 2554 Jan, Hypothyroid E03.9 and Diabetes mellitus E11.9 [facility] [address] 55475- 4688 Jan, [facility] [address] 02080- 6344 Jan, Diabetes mellitus E11.9 [facility] [address] 24068- 3393 Jan, [facility] [id number] [place] [address] 70686- 2854 Dec, Diabetes mellitus E11.9 ; CVA (cerebral vascular accident) I63.9 ; COPD (chronic obstructive pulmonary disease) J44.9 ; Hypothyroid E03.9 ; GERD (gastroesophageal reflux disease) K21.9 and Hypercholesterolemia E78.00 [facility] [address] 77876- 5691 Nov, Diabetes mellitus E11.9 [facility] [id number] [place] [address] 90880- 7974 Nov, [facility] [address] [place] [address]- 3716 Nov, [facility] [id number] [place] [address] 91990- 8750 Nov, [facility] [id number] [place] [address] 57587- 1922 Nov, Diabetes mellitus E11.9 [facility] [id number] [place] [address] 23722- 3824 Oct, Hypothyroid E03.9 [facility] [id number] [place] [address] 58233- 1068 Oct, Diabetes mellitus E11.9 [facility] [address] 29240- 5648 Oct, COPD (chronic obstructive pulmonary disease) J44.9 [facility] [id number] [place] [address] 95946- 9468 Oct, [facility] [id number] [place] [address] 65653- 3550 Sep, Diabetes mellitus E11.9 ; Angina at rest I20.8 ; Hypercholesterolemia E78.0 ; COPD (chronic obstructive pulmonary disease) J44.9 ; GERD (gastroesophageal reflux disease) K21.9 ; Dysuria R30.0 ; Acquired hypothyroidism E03.9 ; Encounter for immunization Z23 and Acute cystitis without hematuria N30.00 [facility] [id number] [place] [address] 45855- 1629 Sep, Diabetes mellitus E11.9 [facility] [id number] [place] [address] 25755 -5526 Aug, [facility] [id number] [place] [address] 18550- 8804 Aug, Diabetes mellitus E11.9 [facility] [id number] [place] [address] 06684- 7193 Jun, Angina at rest I20.8 ; CVA (cerebral vascular accident) I63.9 ; Diabetes mellitus E11.9 ; Hypercholesterolemia E78.0 ; COPD (chronic obstructive pulmonary disease) J44.9 ; GERD (gastroesophageal reflux disease) K21.9 ; Peptic ulcer K27.9 and Hypothyroid E03.9 [place] [id number] [place] [address] 63303- 1634 Jun, [facility] [id number] [place] [address] 63586- 4982 May, Diabetes mellitus E11.9 ; CVA (cerebral vascular accident) I63.9 ; COPD (chronic obstructive pulmonary disease) J44.9 and Angina at rest I20.8 [facility] [id number] [place] [address] 03572- 3475 May, [facility] [id number] [place] [address] 98248- 6104 May, Diabetes mellitus E11.9 ; Hypothyroid E03.9 ; Angina at rest I20.8 ; CVA (cerebral vascular accident) I63.9 ; COPD (chronic obstructive pulmonary disease) J44.9 ; GERD (gastroesophageal reflux disease) K21.9 and Hypercholesterolemia E78.0 [facility] [id number] [place] [address] 53791- 6333 Apr, Hypercholesterolemia E78.0 [facility] [id number] [place] [address] 41581- 7810 Apr, [facility] [id number] [place] [address] 00173- 4469 March, Diabetes mellitus E11.9 ; Hypothyroid E03.9 ; Hypercholesterolemia E78.0 ; COPD (chronic obstructive pulmonary disease) J44.9 ; GERD (gastroesophageal reflux disease) K21.9 ; Constipation K59.00 ; CVA ( cerebral vascular accident) I63.9 and Angina at rest I20.8 [facility] [id number] [place] [address] 33471- 5153 March, [facility] [id number] [place] [address] 55252- 4717 Feb, [facility] [id number] [address]- 0050 Feb, [facility] [id number] [place] [address] 17446- 4698 Feb, [facility] [id number] [place] [address] 63607- 4377 Jan, Diabetes mellitus E11.9 ; Hypercholesterolemia E78.0 ; CVA ( cerebral vascular accident) I63.9 ; GERD (gastroesophageal reflux disease) K21.9 ; Hypothyroid E03.9 and Angina at rest I20.8 [facility] [id number] [place] [address] 56894- 7230 Dec, Diabetes mellitus E11.9 ; Hypothyroid E03.9 ; Angina at rest I20.8 ; CVA (cerebral vascular accident) I63.9 ; Hypercholesterolemia E78.0 ; COPD (chronic obstructive pulmonary disease) J44.9 ; GERD ( gastroesophageal reflux disease) K21.9 and Dysuria R30.0 [facility] [id number] [place] [address] 35800- 3848 Nov, [facility] [id number] [place] [address] 45010- 4019 Nov, Hypothyroid E03.9 [facility] [id number] [place] [address] 44429- 1336 Nov, Hypothyroid E03.9 ; Angina at rest I20.8 ; CVA (cerebral vascular accident) I63.9 ; Hypercholesterolemia E78.0 ; COPD (chronic obstructive pulmonary disease) J44.9 ; GERD (gastroesophageal reflux disease) K21.9 and Diabetes E11.9 [facility] [id number] [place] [address] 96815 -0316 Oct, Upper respiratory symptom R09.89 [facility] [id number] [place] [address] 33003- 7644 Oct, [facility] [id number] [place] [address] 40596- 8722 Oct, [facility] [id number] [place] [address] 03135- 8554 Oct, [facility] [address] 26988- 5416 Aug, Diabetes mellitus 250.00 ; Encounter for immunization Z23 ; Hypothyroid E03.9 ; Angina at rest I20.8 ; CVA (cerebral vascular accident) I63.9 ; Hypercholesterolemia E78.0 ; COPD (chronic obstructive pulmonary disease ) J44.9 and GERD (gastroesophageal reflux disease) K21.9 [facility] [address] 80780- 6292 Jul, [facility] [address] 49927- 5847 Jun, [facility] [address] 39713- 1799 Jun, [facility] [address] 43544- 3156 May, [facility] [address] 17823- 4212 May, Diabetes mellitus 250.00 ; Hypothyroidism 244.9 ; Angina at rest 413.9 ; CVA (cerebral infarction) 434.91 ; Hypercholesterolemia 272.0 ; COPD (chronic obstructive pulmonary disease) 496 and GERD (gastroesophageal reflux disease) 530.81 [facility] [id number] [place] [address] 82728- 2927 Oct, [facility] [id number] [place] [address] 42527- 0777 Oct, [facility] [address] 11381- 1107 Oct, [facility] [id number] [place] [address] 88048- 8445 Oct, [facility] [address] [place] [address]- 5002 Sep, [facility] [address] [address]- 0608 Aug, [facility] [address] [address]- 9078 Aug, [facility] [address] [address]- 8714 Aug, [facility] [address] [address]- 9338 Jul, [facility] [id number] [place] [address] 40997- 4079 Jan, [facility] [address] [address]- 0268 Oct, [facility] [id number] [place] [address] 09713- 1586 Oct, [facility] [address] [address]- 8004 Sep, [facility] [address] [address]- 1293 Apr, [facility] [id number] [address]- 7189 Dec, IMMUNIZATIONS No Known Immunizations SOCIAL HISTORY Never Assessed REASON FOR VISIT Blood sugar PLAN OF CARE VITAL SIGNS MEDICATIONS Unknown Medications RESULTS No Results PROCEDURES No Known procedures [...] History CABG x3 2007 Surgical History stent 2007 Surgical History Gallbladder 2007 Surgical History cateract surgery 2010 Surgical History Linq insertion/(monitor heart rate) removed 08/2015 Surgical History heart cath 06/2016 Hospitalization History CABG x3 2007 Hospitalization History Gallbladder 2007 Hospitalization History stent 2007 Hospitalization History Right upper lobe Pneumonia 02/24/16 Hospitalization History Chest Pain--[facility] 05/19/16 Hospitalization History Chest pain--[facility] 06/18/16 Hospitalization History Influenza & COPD exacerbation 12/21 Hospitalization History Cardiac Monitoring 01/2018
--- OUTSIDE RECORDS SUMMARY | 2018-04-02 20:55 | XMS REPORT ---
Author Author MARIA MACKEY [facility] Address [address] [place] [address] Care Team Providers Care Gas Treater Name Role Phone MARIA MACKEY Unavailable PROBLEMS Type Condition ICD9-CM Code OAD99-KT Code Onset Dates Condition Status SNOMED Code Problem Angina at rest I20.8 Active 14928409 Problem Peptic ulcer K27.9 Active 48094969 Problem Constipation K59.00 Active 66180735 Problem Hospital discharge follow-up Z09 Active 347507853 Problem History of CVA (cerebrovascular accident) Z86.73 Active 204174734 Problem Type 2 diabetes mellitus without complication, without long-term current use of insulin E11.9 Active 941848594 Problem Hyperlipidemia LDL goal <100 E78.5 Active 82824276 Problem 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 Active 8964481468751 Problem 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 Active 686285791010 Problem Former smoker Z87.891 Active 7972054 Problem Hypothyroid E03.9 Active 92202430 Problem COPD (chronic obstructive pulmonary disease) J44.9 Active 82326666 Problem Osteopenia of spine M85.88 Active 898909846 Problem GERD (gastroesophageal reflux disease) K21.9 Active 394368148 ALLERGIES Substance Reaction Event Type Date Status Ultram hives Drug Allergy Aug, Active Fentanyl hives Drug Allergy Aug, Active ENCOUNTERS Encounter Location Date Diagnosis [facility] [address] [address] [facility] [id number] [address] Feb, Hypercholesterolemia E78.00 [facility] [id number] [address] Feb, Type 2 diabetes mellitus without complication, without long- term current use of insulin E11.9 [facility] [address] [facility] [id number] [address] Feb, Hypothyroid E03.9 [place] [id number] [place] [address] 73266- 0321 Jan, Hypothyroid E03.9 ; 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 ; Hospital discharge follow-up Z09 ; Type 2 diabetes mellitus without complication, without long-term current use of insulin E11.9 ; 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 and History of CVA (cerebrovascular accident) Z86.73 [place] [id number] [place] [address] 47067- 3600 Jan, [place] [address] [address]- 3816 Jan, [place] [id number] [place] [address] 86478- 1367 Jan, Type 2 diabetes mellitus without complication, without long- term current use of insulin E11.9 [facility] [id number] [place] [address] 09316- 7608 27 Dec, 2017 Hospital discharge follow-up Z09 ; COPD (chronic obstructive pulmonary disease) J44.9 ; Type 2 diabetes mellitus without complication, without long-term current use of insulin E11.9 ; Hypothyroid E03.9 and Vaginal discharge N89.8 [place] [id number] [place] [address] 50526- 4222 Dec, Hypothyroid E03.9 [facility] [id number] [place] [address] 88819- 1751 Dec, Type 2 diabetes mellitus without complication, without long- term current use of insulin E11.9 [place] [id number] [place] [address] 40038- 9284 Nov, [place] [id number] [place] [address] 46015- 1561 Nov, [place] [id number] [place] [address] 25286- 1595 Nov, Pneumonia of right lower lobe due to infectious organism J18.1 ; Orthopnea R06.01 ; COPD with acute exacerbation J44.1 and Fatigue, unspecified type R53.83 [place] [id number] [address] 3[address] Nov, [place] [address] [address] 6120 Nov, [place] [id number] [place] [address] 45990- 4885 Oct, Pneumonia of right lower lobe due to infectious organism J18.1 [place] [id number] [place] [address] 85043- 9187 Oct, Pneumonia of right lower lobe due to infectious organism J18.1 [facility] [id number] [place] [address] 42362- 8612 Oct, Pneumonia of right lower lobe due to infectious organism J18.1 [place] [address] [address] 0358 Oct, COPD exacerbation J44.1 [place] [id number] [address] 1215 Oct, [place] [id number] [address] 5006 Oct, COPD exacerbation J44.1 [place] [address] [address] 4250 Oct, Encounter for immunization Z23 and COPD (chronic obstructive pulmonary disease) J44.9 [place] [address] [address] 3866 06 Oct, 2017 Medicare annual wellness visit, subsequent Z00.00 ; History of tobacco use Z87.891 ; Need for Zostavax administration Z23 ; Post-menopausal Z78.0 ; Screening for breast cancer Z12.31 ; Screening for colon cancer Z12.11 ; 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 and Encounter for immunization Z23 [place] [id number] [place] [address] 44258- 5049 Sep, Type 2 diabetes mellitus without complication, without long- term current use of insulin E11.9 [place] [id number] [place] [address] 99749- 0877 Sep, Type 2 diabetes mellitus without complication, without long- term current use of insulin E11.9 ; COPD (chronic obstructive pulmonary disease ) J44.9 ; Hypothyroid E03.9 ; GERD (gastroesophageal reflux disease) K21.9 ; CVA (cerebral vascular accident) I63.9 ; Hyperlipidemia LDL goal <100 E78.5 ; Coronary artery disease of kaw heart with stable angina pectoris, unspecified vessel or lesion type I25.118 and 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 [place] [address] 60462- 0749 Aug, Type 2 diabetes mellitus without complication, without long- term current use of insulin E11.9 [place] [id number] [place] [address] 79137- 9802 Aug, Hypothyroid E03.9 [place] [id number] [place] [address] 16942- 3591 Aug, Type 2 diabetes mellitus without complication, without long- term current use of insulin E11.9 ; COPD (chronic obstructive pulmonary disease ) J44.9 ; Hypothyroid E03.9 ; GERD (gastroesophageal reflux disease) K21.9 ; CVA (cerebral vascular accident) I63.9 ; Hyperlipidemia LDL goal <100 E78.5 ; Coronary artery disease of kaw heart with stable angina pectoris, unspecified vessel or lesion type I25.118 and Encounter for immunization Z23 [place] [id number] [place] [address] 34034- 5998 Jul, Hypothyroid E03.9 and Hypercholesterolemia E78.[address] 25074- 2640 Jul, Hypothyroid E03.9 ; Diabetes mellitus E11.9 and Hypercholesterolemia E78.0 [address] [place] [address] 2164 Jul, Hypothyroid E03.9 ; Diabetes mellitus E11.9 and Hypercholesterolemia E78.0 [place] [id number] [place] [address] 00850- 0739 May, CVA (cerebral vascular accident) I63.9 and Dizziness R42 [place] [address] 67386- 9230 May, Dehydration E86.0 ; CVA (cerebral vascular accident) I63.9 ; COPD (chronic obstructive pulmonary disease) J44.9 and Dizziness R42 [place] [address] 46578- 6823 March, Diabetes mellitus E11.9 ; Angina at rest I20.8 ; COPD ( chronic obstructive pulmonary disease) J44.9 ; GERD (gastroesophageal reflux disease) K21.9 ; Hypercholesterolemia E78.00 ; CVA (cerebral vascular accident) I63.9 and Hypothyroid E03.9 [place] [id number] [place] [address] 26012- 3317 Jan, Hypothyroid E03.9 and Diabetes mellitus E11.9 [place] [address] 96069- 3675 Jan, [place] [id number] [place] [address] 53221- 7324 Jan, Diabetes mellitus E11.9 [place] [id number] [place] [address] 67127- 2165 Jan, [place] [id number] [place] [address] 61840- 5322 Dec, Diabetes mellitus E11.9 ; CVA (cerebral vascular accident) I63.9 ; COPD (chronic obstructive pulmonary disease) J44.9 ; Hypothyroid E03.9 ; GERD (gastroesophageal reflux disease) K21.9 and Hypercholesterolemia E78.00 [place] [id number] [place] [address] 06789- 6631 Nov, Diabetes mellitus E11.9 [facility] [address] [place] [address] 46626- 3318 Nov, [facility] [id number] [place] [address] 99168- 5095 Nov, [facility] [id number] [place] [address] 17284- 1211 Nov, [facility] [address] 15163- 1289 Nov, Diabetes mellitus E11.9 [facility] [id number] [place] [address] 05268- 8605 Oct, Hypothyroid E03.9 [facility] [id number] [place] [address] 14453- 5537 Oct, Diabetes mellitus E11.9 [facility] [address] 60984- 5970 Oct, COPD (chronic obstructive pulmonary disease) J44.9 [facility] [id number] [place] [address] 15909- 9118 Oct, [facility] [id number] [place] [address] 19840- 6077 Sep, Diabetes mellitus E11.9 ; Angina at rest I20.8 ; Hypercholesterolemia E78.0 ; COPD (chronic obstructive pulmonary disease) J44.9 ; GERD (gastroesophageal reflux disease) K21.9 ; Dysuria R30.0 ; Acquired hypothyroidism E03.9 ; Encounter for immunization Z23 and Acute cystitis without hematuria N30.00 [facility] [id number] [place] [address] 89231- 1885 Sep, Diabetes mellitus E11.9 [facility] [id number] [place] [address] 91940 -2295 Aug, [facility] [id number] [place] [address] 73741- 2521 Aug, Diabetes mellitus E11.9 [place] [address] [place] [address] 72494- 7853 Jun, Angina at rest I20.8 ; CVA (cerebral vascular accident) I63.9 ; Diabetes mellitus E11.9 ; Hypercholesterolemia E78.0 ; COPD (chronic obstructive pulmonary disease) J44.9 ; GERD (gastroesophageal reflux disease) K21.9 ; Peptic ulcer K27.9 and Hypothyroid E03.9 [place] [id number] [place] [address] 86684- 6560 Jun, [place] [id number] [place] [address] 44751- 7341 May, Diabetes mellitus E11.9 ; CVA (cerebral vascular accident) I63.9 ; COPD (chronic obstructive pulmonary disease) J44.9 and Angina at rest I20.8 [place] [id number] [place] [address] 68233- 6998 May, [place] [id number] [place] [address] 05993- 7166 May, Diabetes mellitus E11.9 ; Hypothyroid E03.9 ; Angina at rest I20.8 ; CVA (cerebral vascular accident) I63.9 ; COPD (chronic obstructive pulmonary disease) J44.9 ; GERD (gastroesophageal reflux disease) K21.9 and Hypercholesterolemia E78.0 [place] [id number] [place] [address] 07870- 5729 Apr, Hypercholesterolemia E78.0 [place] [id number] [place] [address] 60491- 7322 Apr, [place] [id number] [place] [address] 60206- 5262 March, Diabetes mellitus E11.9 ; Hypothyroid E03.9 ; Hypercholesterolemia E78.0 ; COPD (chronic obstructive pulmonary disease) J44.9 ; GERD (gastroesophageal reflux disease) K21.9 ; Constipation K59.00 ; CVA ( cerebral vascular accident) I63.9 and Angina at rest I20.8 [place] [address] [address]- 6371 March, [facility] [id number] [place] [address] 22990- 4557 Feb, [facility] [id number] [place] [address] 22166- 6252 Feb, [facility] [id number] [place] [address] 65099- 1211 Feb, [facility] [id number] [place] [address] 42839- 3806 Jan, Diabetes mellitus E11.9 ; Hypercholesterolemia E78.0 ; CVA ( cerebral vascular accident) I63.9 ; GERD (gastroesophageal reflux disease) K21.9 ; Hypothyroid E03.9 and Angina at rest I20.8 [place] [address] [place] [address] 08569- 2545 Dec, Diabetes mellitus E11.9 ; Hypothyroid E03.9 ; Angina at rest I20.8 ; CVA (cerebral vascular accident) I63.9 ; Hypercholesterolemia E78.0 ; COPD (chronic obstructive pulmonary disease) J44.9 ; GERD ( gastroesophageal reflux disease) K21.9 and Dysuria R30.0 [facility] [address] [address]- 0126 Nov, [place] [address] [place] [address] 67920- 4644 Nov, Hypothyroid E03.9 [place] [address] [place] [address] 25983- 5039 Nov, Hypothyroid E03.9 ; Angina at rest I20.8 ; CVA (cerebral vascular accident) I63.9 ; Hypercholesterolemia E78.0 ; COPD (chronic obstructive pulmonary disease) J44.9 ; GERD (gastroesophageal reflux disease) K21.9 and Diabetes E11.9 [facility] [address] [address]37 Oct, Upper respiratory symptom R09.89 [facility] [id number] [place] [address] 24938- 5863 Oct, [facility] [address] 30473- 8156 Oct, [facility] [address] 88457- 6721 Oct, [facility] [address] 95231- 8668 Aug, Diabetes mellitus 250.00 ; Encounter for immunization Z23 ; Hypothyroid E03.9 ; Angina at rest I20.8 ; CVA (cerebral vascular accident) I63.9 ; Hypercholesterolemia E78.0 ; COPD (chronic obstructive pulmonary disease ) J44.9 and GERD (gastroesophageal reflux disease) K21.9 [place] [address] 80578- 7965 Jul, [facility] [address] 32970- 9559 Jun, [facility] [address] 05450- 7237 Jun, [facility] [id number] [place] [address] 60548- 7329 May, [facility] [id number] [place] [address] 83576- 8310 May, Diabetes mellitus 250.00 ; Hypothyroidism 244.9 ; Angina at rest 413.9 ; CVA (cerebral infarction) 434.91 ; Hypercholesterolemia 272.0 ; COPD (chronic obstructive pulmonary disease) 496 and GERD (gastroesophageal reflux disease) 530.81 [facility] [address] 72924- 4851 Oct, [facility] [address] 65105- 5147 Oct, [facility] [address] 35815 2546 Oct, [facility] [address] [address]- 8706 Oct, [facility] [address] [address]- 7676 Sep, [facility] [address] [address] 254 Aug, [facility] [address] [place] [address] 74736- 5571 Aug, [facility] [address] [place] [address] 79284- 6277 Aug, [facility] [address] [place] [address] 54853 2546 Jul, [facility] [id number] [place] [address] 75912- 1174 Jan, [facility] [address] [address]- 6044 Oct, [facility] [address] [place] [address] 71056- 5155 Oct, [facility] [address] [address]- 2066 Sep, [facility] [id number] [address]- 7098 Apr, [facility] [address] [address]- 7613 Dec, IMMUNIZATIONS Vaccine Route Administration Date Status FLUARIX QUAD (3 AND UP) 2017 IM Intramuscular Aug 06, 2017 Administered SOCIAL HISTORY Never Assessed REASON FOR VISIT Diabetes f/[id number], Back pain in lower back PLAN OF CARE Activity Details Follow Up mid October Reason:DM VITAL SIGNS Height 60 in 2017-08-06 Weight 163.5 lbs 2017-08-06 Temperature 97.9 degrees Fahrenheit 2017-08-06 Heart Rate 76 bpm 2017-08-06 Respiratory Rate 20 2017-08-06 BMI 31.93 kg/m2 2017-08-06 Blood pressure systolic 132 mmHg 2017-08-06 Blood pressure diastolic 70 mmHg 2017-08-06 MEDICATIONS Medication Instructions Dosage Frequency Start Date End Date Duration Status Levothyroxine Sodium 100 MCG Orally Once a day 1 tablet 24h Nov, Active NitroMist 400 MCG/SPRAY Translingual Once a day 1 spray under the tongue 24h Active OneTouch Ultra Test - In Vitro 3 times a day USE ONE STRIP TO CHECK GLUCOSE ONCE DAILY DIRECTED 8h Active Meclizine HCl 25 MG Orally 3 times a day 1 tablet as needed 8h May, 10 days Active Protonix 40 mg Orally twice a day 1 tablet 12h Active Fenofibrate 160 MG Orally Once a day 1 tablet with a meal 24h Jan, Active Acetaminophen 500 MG Orally every 6 hrs 2 tablets 6h Active Janumet 50-1000 mg Orally Twice a day 1 tablet with meals 12h Active Farxiga 5 mg Orally Once a day 1 tablet 24h Aug, Oct, 30 day(s) Active Atorvastatin Calcium 40 mg Orally Once a day at HS 1 tablet Active Isosorbide Mononitrate ER 60 MG Orally Once a day 1 tablet 24h Active Lancets test one time per day as directed Jul, Active Ranexa 1000 MG Orally Twice a day 1 tablet 12h Active Clopidogrel Bisulfate 75 MG Orally Once a day 1 tablet 24h Active RESULTS Name Result Date Reference Range TSH 2017-08-06 TSH 2.410 0.450-4.500 PROCEDURES Procedure Date Ordered Result Body [facility] Aug [facility], 2017 FQ VISIT ESTABLISHED PATIENT Aug 06, 2017 JOANNA, ROUTINE* Aug 06, 2017 SINGLE IMMUNIZATION ADMIN Aug 06, 2017 FLUARIX QUAD (3 & UP)-[employer]-2014Aug 06, 2017 INSTRUCTIONS MEDICATIONS ADMINISTERED No Known Medications MEDICAL [...] Surgical History stent 2007 Surgical History Gallbladder 2006 Surgical History cateract surgery 2010 Surgical History Linq insertion/(monitor heart rate) removed 08/2015 Surgical History heart cath 06/2016 Hospitalization History CABG x3 2007 Hospitalization History Gallbladder 2007 Hospitalization History stent 2006 Hospitalization History Right upper lobe Pneumonia 02/24/16 Hospitalization History Chest Pain--[facility] 05/19/16 Hospitalization History Chest pain--[facility] 06/18/16 Hospitalization History Influenza & COPD exacerbation 12/21 Hospitalization History Cardiac Monitoring 01/2018
--- OUTSIDE RECORDS SUMMARY | 2018-04-02 20:57 | XMS REPORT ---
Author Author ANASTASIA Layne Organization [facility] Address [address] [place] [address] Care Team Providers Care Punch Machine Hand Name Role Phone ANASTASIA Layne Unavailable PROBLEMS Type Condition ICD9-CM Code AGL80-GT Code Onset Dates Condition Status SNOMED Code Problem Angina at rest I20.8 Active 43460867 Problem Peptic ulcer K27.9 Active 44003407 Problem Constipation K59.00 Active 36979834 Problem Hospital discharge follow-up Z09 Active 280368365 Problem History of CVA (cerebrovascular accident) Z86.73 Active 616532064 Problem Type 2 diabetes mellitus without complication, without long-term current use of insulin E11.9 Active 399662927 Problem Hyperlipidemia LDL goal <100 E78.5 Active 61751144 Problem 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 Active 5136297434510 Problem 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 Active 986494471333 Problem Former smoker Z87.891 Active 2188792 Problem Hypothyroid E03.9 Active 39321078 Problem COPD (chronic obstructive pulmonary disease) J44.9 Active 77914879 Problem Osteopenia of spine M85.88 Active 716792357 Problem GERD (gastroesophageal reflux disease) K21.9 Active 328699741 ALLERGIES Substance Reaction Event Type Date Status Ultram hives Drug Allergy May, Active Fentanyl hives Drug Allergy May, Active ENCOUNTERS Encounter Location Date Diagnosis [facility] [id number], [place] [address] 14 Jan, 2018 Hypothyroid E03.9 ; 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 ; Hospital discharge follow-up Z09 ; Type 2 diabetes mellitus without complication, without long-term current use of insulin E11.9 ; 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 and History of CVA (cerebrovascular accident) Z86.73 [facility] [id number] [place] [address] 84968- 3735 Jan, [facility] [id number] [place] [address] 51102- 3340 Jan, [facility] [id number] [place] [address] 82420- 4772 Jan, Type 2 diabetes mellitus without complication, without long- term current use of insulin E11.9 [facility] [id number] [place] [address] 26812- 9479 Dec, Hospital discharge follow-up Z09 ; COPD (chronic obstructive pulmonary disease) J44.9 ; Type 2 diabetes mellitus without complication, without long-term current use of insulin E11.9 ; Hypothyroid E03.9 and Vaginal discharge N89.8 [facility] [id number] [place] [address] 65227- 9170 Dec, Hypothyroid E03.9 [facility] [id number] [place] [address] 51036- 8426 Dec, Type 2 diabetes mellitus without complication, without long- term current use of insulin E11.9 [facility] [id number] [place] [address] 85794- 5934 Nov, [facility] [id number] [place] [address] 50813- 5446 Nov, [facility] [id number] [place] [address] 26526- 1626 Nov, Pneumonia of right lower lobe due to infectious organism J18.1 ; Orthopnea R06.01 ; COPD with acute exacerbation J44.1 and Fatigue, unspecified type R53.83 [facility] [id number] [place] [address] 23468- 1856 Nov, [facility] [id number] [place] [address] 64535- 8002 Nov, [facility] [id number] [place] [address] 84780- 6768 Oct, Pneumonia of right lower lobe due to infectious organism J18.1 [place] [id number] [place] [address] 95057- 0472 Oct, Pneumonia of right lower lobe due to infectious organism J18.1 [place] [address] [place] [address] 48140- 7078 Oct, Pneumonia of right lower lobe due to infectious organism J18.1 [facility] [id number] [place] [address] 84166- 1260 Oct, COPD exacerbation J44.1 [address] [id number] [place] [address] 24971- 7860 Oct, [facility] [id number] [place] [address] 51263- 4631 Oct, COPD exacerbation J44.1 [facility] [id number] [place] [address] 36609- 8946 Oct, Encounter for immunization Z23 and COPD (chronic obstructive pulmonary disease) J44.9 [id number] [place] [address] 80529- 9266 Oct, Medicare annual wellness visit, subsequent Z00.00 ; History of tobacco use Z87.891 ; Need for Zostavax administration Z23 ; Post-menopausal Z78.0 ; Screening for breast cancer Z12.31 ; Screening for colon cancer Z12.11 ; 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 and Encounter for immunization Z23 [place] [id number] [place] [address] 66287- 5507 Sep, Type 2 diabetes mellitus without complication, without long- term current use of insulin E11.9 [id number] [place] [address] 61961- 2805 Sep, Type 2 diabetes mellitus without complication, without long- term current use of insulin E11.9 ; COPD (chronic obstructive pulmonary disease ) J44.9 ; Hypothyroid E03.9 ; GERD (gastroesophageal reflux disease) K21.9 ; CVA (cerebral vascular accident) I63.9 ; Hyperlipidemia LDL goal <100 E78.5 ; Coronary artery disease of [place] heart with stable angina pectoris, unspecified vessel or lesion type I25.118 and 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 [facility] [id number] [place] [address] 75280- 5688 Aug, Type 2 diabetes mellitus without complication, without long- term current use of insulin E11.9 [facility] [address] 68453- 6435 Aug, Hypothyroid E03.9 [facility] [address] 79824- 1215 Aug, Type 2 diabetes mellitus without complication, without long- term current use of insulin E11.9 ; COPD (chronic obstructive pulmonary disease ) J44.9 ; Hypothyroid E03.9 ; GERD (gastroesophageal reflux disease) K21.9 ; CVA (cerebral vascular accident) I63.9 ; Hyperlipidemia LDL goal <100 E78.5 ; Coronary artery disease of [place] heart with stable angina pectoris, unspecified vessel or lesion type I25.118 and Encounter for immunization Z23 [place] [address] 79107- 9039 Jul, Hypothyroid E03.9 and Hypercholesterolemia E78.00 [facility] [id number] [place] [address] 04118- 0885 Jul, Hypothyroid E03.9 ; Diabetes mellitus E11.9 and Hypercholesterolemia E78.0 [facility] [id number] [place] [address] 66154- 5216 Jul, Hypothyroid E03.9 ; Diabetes mellitus E11.9 and Hypercholesterolemia E78.0 [place] [address] 00863- 2128 May, CVA (cerebral vascular accident) I63.9 and Dizziness R42 [place] [address] 21326- 6668 May, Dehydration E86.0 ; CVA (cerebral vascular accident) I63.9 ; COPD (chronic obstructive pulmonary disease) J44.9 and Dizziness R42 [facility] [address] [address]- 7702 March, Diabetes mellitus E11.9 ; Angina at rest I20.8 ; COPD ( chronic obstructive pulmonary disease) J44.9 ; GERD (gastroesophageal reflux disease) K21.9 ; Hypercholesterolemia E78.00 ; CVA (cerebral vascular accident) I63.9 and Hypothyroid E03.9 [place] [address] 74911- 8174 Jan, Hypothyroid E03.9 and Diabetes mellitus E11.9 [place] [address] 87845- 9851 Jan, [place] [address] 00522- 2951 Jan, Diabetes mellitus E11.9 [place] [address] 39405- 3927 Jan, [facility] [address] 45749- 0864 Dec, Diabetes mellitus E11.9 ; CVA (cerebral vascular accident) I63.9 ; COPD (chronic obstructive pulmonary disease) J44.9 ; Hypothyroid E03.9 ; GERD (gastroesophageal reflux disease) K21.9 and Hypercholesterolemia E78.00 [place] [id number] [place] [address] 87841- 3278 Nov, Diabetes mellitus E11.9 [facility] [id number] [place] [address] 60238- 6961 Nov, [facility] [id number] [place] [address] 27554- 8154 Nov, [facility] [id number] [place] [address] 01063- 3784 Nov, [place] [address] [place] [address]- 3939 Nov, Diabetes mellitus E11.9 [facility] [address] 13336- 5858 Oct, Hypothyroid E03.9 [facility] [id number] [place] [address] 28117- 8009 Oct, Diabetes mellitus E11.9 [facility] [address] 57877- 2052 Oct, COPD (chronic obstructive pulmonary disease) J44.9 [facility] [address] 92573- 3177 Oct, [place] [address] 49241- 3679 Sep, Diabetes mellitus E11.9 ; Angina at rest I20.8 ; Hypercholesterolemia E78.0 ; COPD (chronic obstructive pulmonary disease) J44.9 ; GERD (gastroesophageal reflux disease) K21.9 ; Dysuria R30.0 ; Acquired hypothyroidism E03.9 ; Encounter for immunization Z23 and Acute cystitis without hematuria N30.00 [place] [address] 60277- 5229 Sep, Diabetes mellitus E11.[address] [facility] [id number] [place] [address] 57078 -3037 Aug, [facility] [id number] [place] [address] 54326- 2255 Aug, Diabetes mellitus E11.9 [facility] [id number] [place] [address] 78516- 5060 Jun, Angina at rest I20.8 ; CVA (cerebral vascular accident) I63.9 ; Diabetes mellitus E11.9 ; Hypercholesterolemia E78.0 ; COPD (chronic obstructive pulmonary disease) J44.9 ; GERD (gastroesophageal reflux disease) K21.9 ; Peptic ulcer K27.9 and Hypothyroid E03.9 [facility] [id number] [place] [address] 74941- 4162 Jun, [facility] [address], [place] [address]- 2556 May, Diabetes mellitus E11.9 ; CVA (cerebral vascular accident) I63.9 ; COPD (chronic obstructive pulmonary disease) J44.9 and Angina at rest I20.8 [facility] [address], [place] [address]- 7684 May, [facility] [id number] [place] [address] 92962- 0532 May, Diabetes mellitus E11.9 ; Hypothyroid E03.9 ; Angina at rest I20.8 ; CVA (cerebral vascular accident) I63.9 ; COPD (chronic obstructive pulmonary disease) J44.9 ; GERD (gastroesophageal reflux disease) K21.9 and Hypercholesterolemia E78.0 [place] [id number] [place] [address] 83964- 1243 Apr, Hypercholesterolemia E78.0 [place] [address], [place] [address]- 1587 Apr, [facility] [id number] [place] [address] 55497- 9170 March, Diabetes mellitus E11.9 ; Hypothyroid E03.9 ; Hypercholesterolemia E78.0 ; COPD (chronic obstructive pulmonary disease) J44.9 ; GERD (gastroesophageal reflux disease) K21.9 ; Constipation K59.00 ; CVA ( cerebral vascular accident) I63.9 and Angina at rest I20.8 [place] [address], [place] [address] 99[address] March, [facility] [id number] [address]- 6720 Feb, [facility] [address], [place] [address]- 8801 Feb, [facility] [address], [place] [address]- 0111 Feb, [facility] [id number] [place] [address] 82331- 0220 Jan, Diabetes mellitus E11.9 ; Hypercholesterolemia E78.0 ; CVA ( cerebral vascular accident) I63.9 ; GERD (gastroesophageal reflux disease) K21.9 ; Hypothyroid E03.9 and Angina at rest I20.8 [place] [address] 79154- 6789 Dec, Diabetes mellitus E11.9 ; Hypothyroid E03.9 ; Angina at rest I20.8 ; CVA (cerebral vascular accident) I63.9 ; Hypercholesterolemia E78.0 ; COPD (chronic obstructive pulmonary disease) J44.9 ; GERD ( gastroesophageal reflux disease) K21.9 and Dysuria R30.0 [facility] [id number] [place] [address] 13030- 2655 Nov, [place] [address] 56067- 0465 Nov, Hypothyroid E03.9 [facility] [id number] [place] [address] 36707- 7860 Nov, Hypothyroid E03.9 ; Angina at rest I20.8 ; CVA (cerebral vascular accident) I63.9 ; Hypercholesterolemia E78.0 ; COPD (chronic obstructive pulmonary disease) J44.9 ; GERD (gastroesophageal reflux disease) K21.9 and Diabetes E11.[address] [facility] [id number] [place] [address] 66661 -6888 Oct, Upper respiratory symptom R09.89 [facility] [id number] [place] [address] 99104- 8230 Oct, [facility] [address] 25051- 7242 Oct, [facility] [id number] [place] [address] 14331- 3834 Oct, [place] [address] [place] [address]- 7510 Aug, Diabetes mellitus 250.00 ; Encounter for immunization Z23 ; Hypothyroid E03.9 ; Angina at rest I20.8 ; CVA (cerebral vascular accident) I63.9 ; Hypercholesterolemia E78.0 ; COPD (chronic obstructive pulmonary disease ) J44.9 and GERD (gastroesophageal reflux disease) K21.9 [facility] [address] 36239- 2384 Jul, [facility] [address] 35145- 7174 Jun, [facility] [address] 65231- 1407 Jun, [facility] [address] 51369- 5400 May, [facility] [address] 72425- 8073 May, Diabetes mellitus 250.00 ; Hypothyroidism 244.9 ; Angina at rest 413.9 ; CVA (cerebral infarction) 434.91 ; Hypercholesterolemia 272.0 ; COPD (chronic obstructive pulmonary disease) 496 and GERD (gastroesophageal reflux disease) 530.81 [facility] [id number] [place] [address] 42508- 6686 Oct, [facility] [id number] [place] [address] 64444- 3705 Oct, [facility] [address] 20293- 6049 Oct, [facility] [id number] [place] [address] 04463- 0728 Oct, [facility] [address] 561427- 1431 Sep, [facility] [id number] [place] [address] 26024- 4626 Aug, [facility] [address] [address] [address]- 2546 15 Aug, 2010 [facility] [id number] [address]- 2546 Aug, [facility] [address], [place] [address]- 2546 Jul, [facility] [address], [place] [address]- 2546 Jan, [facility] [address], [place] [address]- 2546 Oct, [facility] [id number] [place] [address] 64120- 2546 Oct, [facility] [address], [place] [address]- 2546 Sep, [facility] [address], [place] [address]- 2546 Apr, [facility] [id number], [place] [address]- 2546 Dec, IMMUNIZATIONS Vaccine Route Administration Date Status ZOFRAN (IV) 2 MG/ML (PER 1 MG) 40 MG/20 ML IV Intravenous May 20, 2017 Administered SOCIAL HISTORY Never Assessed REASON FOR VISIT Dizziness, ill, symptoms started around 3 am- Bonnie [facility] PLAN OF CARE Activity Details Follow Up 2 - 3 Days Reason:dehydration VITAL SIGNS Height 60 in 2017-05-20 Weight 162.6 lbs 2017-05-20 Temperature 97.6 degrees Fahrenheit 2017-05-20 Heart Rate 68 bpm 2017-05-20 Respiratory Rate 24 2017-05-20 Oximetry 98 % 2017-05-20 BMI 31.75 kg/m2 2017-05-20 Blood pressure systolic 124 mmHg 2017-05-20 Blood pressure diastolic 68 mmHg 2017-05-20 MEDICATIONS Medication Instructions Dosage Frequency Start Date End Date Duration Status Lancets test one time per day as directed Jul, Active Fenofibrate 160 MG Orally Once a day 1 tablet with a meal 24h Jan, Active Isosorbide Mononitrate ER 60 MG Orally Once a day 1 tablet 24h Active Clopidogrel Bisulfate 75 MG Orally Once a day 1 tablet 24h Active Ranexa 1000 MG Orally Twice a day 1 tablet 12h Active Acetaminophen 500 MG Orally every 6 hrs 2 tablets 6h Active Lopid 600 MG Orally Twice a day 1 tablet 12h 21 Dec, 2016 Active Protonix 40 mg Orally twice a day 1 tablet 12h Active Janumet 50-1000 mg Orally Twice a day 1 tablet with meals 12h Active Levothyroxine Sodium 100 MCG Orally Once a day 1 tablet 24h Nov, Active NitroMist 400 MCG/SPRAY Translingual Once a day 1 spray under the tongue 24h Active Atorvastatin Calcium 20 mg Orally Once a day at HS 1 tablet Active Meclizine HCl 25 MG Orally 3 times a day 1 tablet as needed 8h May, 10 days Active ZaelabTouch Ultra Test - In Vitro 3 times a day USE ONE STRIP TO CHECK GLUCOSE ONCE DAILY DIRECTED 8h Active RESULTS Name Result Date Reference Range UA LONG DIP (IN HOUSE) 2017-05-20 Lot # [id number] Exp date 06/2017 Clarity clear Color yellow Odor no GLU negative VIOLETTA negative KET negative SG 1.010 BLO negative pH 5.0 Protein negative URO 0.2 NIT negative NICA negative Lot # Exp date PROCEDURES Procedure Date Ordered Result Body Site THER/PROPH/DIAG INJ, IV PUSH May 20, 2017 URINALYSIS, AUTO, W/O SCOPE May 20, 2017 IV INFUSION 2017-05-20 N/A EKG, TRACING (IN-HOUSE) 2017-05-20 N/A [facility] VISIT ESTABLISHED PATIENT May 20, 2017 ZOFRAN (IV) 2 MG/ML (PER 1 MG) 40 MG/20 ML May 20, 2017 HYDRATION IV INFUSION, INIT May 20, 2017 MEASURE BLOOD OXYGEN LEVEL May 20, 2017 ELECTROCARDIOGRAM, TRACING May 20, 2017 THER/PROPH/DIAG INJ, IV PUSH May 20, 2017 INSTRUCTIONS MEDICATIONS ADMINISTERED No Known Medications [...] History CABG x3 2007 Hospitalization History Gallbladder 2006 Hospitalization History stent 2006 Hospitalization History Right upper lobe Pneumonia 02/24/16 Hospitalization History Chest Pain--[facility] 05/19/16 Hospitalization History Chest pain--[facility] 06/18/16 Hospitalization History Influenza & COPD exacerbation 12/21 Hospitalization History Cardiac Monitoring 01/2018
--- OUTSIDE RECORDS SUMMARY | 2018-04-02 20:57 | XMS REPORT ---
Author Author ANASTASIA Layne Organization [facility] Address [address] [place] [address] Care Team Providers Care Stock Clipper Name Role Phone ANASTASIA Layne Unavailable PROBLEMS Type Condition ICD9-CM Code QMK01-YA Code Onset Dates Condition Status SNOMED Code Problem Angina at rest I20.8 Active 11314299 Problem Peptic ulcer K27.9 Active 12126588 Problem Constipation K59.00 Active 79713385 Problem Hospital discharge follow-up Z09 Active 258869514 Problem History of CVA (cerebrovascular accident) Z86.73 Active 545533341 Problem Type 2 diabetes mellitus without complication, without long-term current use of insulin E11.9 Active 550153076 Problem Hyperlipidemia LDL goal <100 E78.5 Active 34147836 Problem 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 Active 3176825897266 Problem 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 Active 661572604970 Problem Former smoker Z87.891 Active 4921548 Problem Hypothyroid E03.9 Active 81828355 Problem COPD (chronic obstructive pulmonary disease) J44.9 Active 24258890 Problem Osteopenia of spine M85.88 Active 837536508 Problem GERD (gastroesophageal reflux disease) K21.9 Active 241859080 ALLERGIES No Information ENCOUNTERS Encounter Location Date Diagnosis [facility] [id number] [place] [address] 60360- 6962 Feb, Type 2 diabetes mellitus without complication, without long- term current use of insulin E11.9 [facility] [id number] [place] [address] 47011- 9100 03 Feb, 2018 Hypothyroid E03.9 [facility] [id number] [place] [address] 95081- 9702 Jan, Hypothyroid E03.9 ; 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 ; Hospital discharge follow-up Z09 ; Type 2 diabetes mellitus without complication, without long-term current use of insulin E11.9 ; 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 and History of CVA (cerebrovascular accident) Z86.73 [place] [id number] [place] [address] 37321- 8730 Jan, [facility] [id number] [place] [address] 96456- 9207 Jan, [facility] [id number] [place] [address] 54440- 3515 Jan, Type 2 diabetes mellitus without complication, without long- term current use of insulin E11.9 [facility] [id number] [place] [address] 94844- 6527 27 Dec, 2017 Hospital discharge follow-up Z09 ; COPD (chronic obstructive pulmonary disease) J44.9 ; Type 2 diabetes mellitus without complication, without long-term current use of insulin E11.9 ; Hypothyroid E03.9 and Vaginal discharge N89.8 [facility] [id number] [place] [address] 89489- 6366 Dec, Hypothyroid E03.9 [facility] [id number] [place] [address] 52638- 1589 Dec, Type 2 diabetes mellitus without complication, without long- term current use of insulin E11.9 [facility] [id number] [place] [address] 91865- 4515 Nov, [facility] [id number] [place] [address] 71046- 0875 Nov, [place] [address] 28700- 0197 Nov, Pneumonia of right lower lobe due to infectious organism J18.1 ; Orthopnea R06.01 ; COPD with acute exacerbation J44.1 and Fatigue, unspecified type R53.83 [facility] [id number] [place] [address] 25577- 8948 Nov, [facility] [place] [address] [address] 6720 Nov, [facility] [place] [id number] [place] [address] 80766- 6062 Oct, Pneumonia of right lower lobe due to infectious organism J18.1 [facility] [id number] [place] [address] 07914- 5138 Oct, Pneumonia of right lower lobe due to infectious organism J18.1 [facility] [address] [address]- 3408 Oct, Pneumonia of right lower lobe due to infectious organism J18.1 [facility] [place] [id number] [place] [address] 42551- 1887 Oct, COPD exacerbation J44.1 [facility] [id number] [place] [address] 60124- 0546 Oct, [facility] [id number] [place] [address] 27558- 4929 Oct, COPD exacerbation J44.1 [facility] [id number] [place] [address] 96501- 7769 Oct, Encounter for immunization Z23 and COPD (chronic obstructive pulmonary disease) J44.9 [facility] [address] [place] [address] 89684- 7534 Oct, Medicare annual wellness visit, subsequent Z00.00 ; History of tobacco use Z87.891 ; Need for Zostavax administration Z23 ; Post-menopausal Z78.0 ; Screening for breast cancer Z12.31 ; Screening for colon cancer Z12.11 ; 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 and Encounter for immunization Z23 [facility] [address] [place] [address] 94265- 3452 Sep, Type 2 diabetes mellitus without complication, without long- term current use of insulin E11.9 [facility] [address] [place] [address] 03314- 7580 Sep, Type 2 diabetes mellitus without complication, without long- term current use of insulin E11.9 ; COPD (chronic obstructive pulmonary disease ) J44.9 ; Hypothyroid E03.9 ; GERD (gastroesophageal reflux disease) K21.9 ; CVA (cerebral vascular accident) I63.9 ; Hyperlipidemia LDL goal <100 E78.5 ; Coronary artery disease of [place] heart with stable angina pectoris, unspecified vessel or lesion type I25.118 and 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 [facility] [address] 67971- 6381 Aug, Type 2 diabetes mellitus without complication, without long- term current use of insulin E11.9 [facility] [place] [address] 23980- 8115 Aug, Hypothyroid E03.9 [facility] [address] 74371- 3742 Aug, Type 2 diabetes mellitus without complication, without long- term current use of insulin E11.9 ; COPD (chronic obstructive pulmonary disease ) J44.9 ; Hypothyroid E03.9 ; GERD (gastroesophageal reflux disease) K21.9 ; CVA (cerebral vascular accident) I63.9 ; Hyperlipidemia LDL goal <100 E78.5 ; Coronary artery disease of [place] heart with stable angina pectoris, unspecified vessel or lesion type I25.118 and Encounter for immunization Z23 [place] [address] 49059- 1752 Jul, Hypothyroid E03.9 and Hypercholesterolemia E78.00 [facility] [address] 70311- 8031 Jul, Hypothyroid E03.9 ; Diabetes mellitus E11.9 and Hypercholesterolemia E78.0 [facility] [address] 97499- 4683 Jul, Hypothyroid E03.9 ; Diabetes mellitus E11.9 and Hypercholesterolemia E78.0 [facility] [address] 54103- 8240 May, CVA (cerebral vascular accident) I63.9 and Dizziness R42 [facility] [place] [id number] [place] [address] 29642- 6867 May, Dehydration E86.0 ; CVA (cerebral vascular accident) I63.9 ; COPD (chronic obstructive pulmonary disease) J44.9 and Dizziness R42 [place] [address] 31057- 0224 March, Diabetes mellitus E11.9 ; Angina at rest I20.8 ; COPD ( chronic obstructive pulmonary disease) J44.9 ; GERD (gastroesophageal reflux disease) K21.9 ; Hypercholesterolemia E78.00 ; CVA (cerebral vascular accident) I63.9 and Hypothyroid E03.9 [place] [address] 00379- 9004 Jan, Hypothyroid E03.9 and Diabetes mellitus E11.9 [place] [address] 08233- 3372 Jan, [place] [address] 61182- 4134 Jan, Diabetes mellitus E11.9 [facility] [address] 08830- 6115 Jan, [place] [id number] [place] [address] 11626- 0846 Dec, Diabetes mellitus E11.9 ; CVA (cerebral vascular accident) I63.9 ; COPD (chronic obstructive pulmonary disease) J44.9 ; Hypothyroid E03.9 ; GERD (gastroesophageal reflux disease) K21.9 and Hypercholesterolemia E78.00 [place] [address] 87222- 1783 Nov, Diabetes mellitus E11.9 [facility] [place] [id number] [place] [address] 58460- 3318 Nov, [place] [address] [place] [address]- 5985 Nov, [facility] [id number] [place] [address] 16778- 3105 Nov, [facility] [id number] [place] [address] 65743- 5357 Nov, Diabetes mellitus E11.9 [facility] [id number] [place] [address] 35378- 0938 Oct, Hypothyroid E03.9 [facility] [id number] [place] [address] 77667- 0500 Oct, Diabetes mellitus E11.9 [facility] [address] 22948- 5961 Oct, COPD (chronic obstructive pulmonary disease) J44.9 [facility] [place] [id number] [place] [address] 46121- 0470 Oct, [facility] [id number] [place] [address] 73999- 2472 Sep, Diabetes mellitus E11.9 ; Angina at rest I20.8 ; Hypercholesterolemia E78.0 ; COPD (chronic obstructive pulmonary disease) J44.9 ; GERD (gastroesophageal reflux disease) K21.9 ; Dysuria R30.0 ; Acquired hypothyroidism E03.9 ; Encounter for immunization Z23 and Acute cystitis without hematuria N30.00 [facility] [id number] [place] [address] 37296- 9069 Sep, Diabetes mellitus E11.9 [facility] [id number] [place] [address] 32153 -7385 Aug, [facility] [id number] [place] [address] 16150- 1446 Aug, Diabetes mellitus E11.9 [facility] [id number] [place] [address] 14767- 8370 Jun, Angina at rest I20.8 ; CVA (cerebral vascular accident) I63.9 ; Diabetes mellitus E11.9 ; Hypercholesterolemia E78.0 ; COPD (chronic obstructive pulmonary disease) J44.9 ; GERD (gastroesophageal reflux disease) K21.9 ; Peptic ulcer K27.9 and Hypothyroid E03.9 [place] [id number] [place] [address] 54731- 2271 Jun, [facility] [id number] [place] [address] 78349- 8258 May, Diabetes mellitus E11.9 ; CVA (cerebral vascular accident) I63.9 ; COPD (chronic obstructive pulmonary disease) J44.9 and Angina at rest I20.8 [place] [id number] [place] [address] 51495- 4400 May, [place] [id number] [place] [address] 79675- 5640 May, Diabetes mellitus E11.9 ; Hypothyroid E03.9 ; Angina at rest I20.8 ; CVA (cerebral vascular accident) I63.9 ; COPD (chronic obstructive pulmonary disease) J44.9 ; GERD (gastroesophageal reflux disease) K21.9 and Hypercholesterolemia E78.0 [place] [id number] [place] [address] 44986- 0929 Apr, Hypercholesterolemia E78.0 [facility] [place] [id number] [place] [address] 92318- 1160 Apr, [place] [id number] [place] [address] 18404- 1304 March, Diabetes mellitus E11.9 ; Hypothyroid E03.9 ; Hypercholesterolemia E78.0 ; COPD (chronic obstructive pulmonary disease) J44.9 ; GERD (gastroesophageal reflux disease) K21.9 ; Constipation K59.00 ; CVA ( cerebral vascular accident) I63.9 and Angina at rest I20.8 [facility] [id number] [place] [address] 52536- 5645 March, [place] [id number] [place] [address] 51126- 1304 Feb, [facility] [id number] [address]- 1049 Feb, [facility] [id number] [place] [address] 48265- 6397 Feb, [facility] [id number] [place] [address] 29101- 8776 Jan, Diabetes mellitus E11.9 ; Hypercholesterolemia E78.0 ; CVA ( cerebral vascular accident) I63.9 ; GERD (gastroesophageal reflux disease) K21.9 ; Hypothyroid E03.9 and Angina at rest I20.8 [place] [id number] [place] [address] 12172- 5839 Dec, Diabetes mellitus E11.9 ; Hypothyroid E03.9 ; Angina at rest I20.8 ; CVA (cerebral vascular accident) I63.9 ; Hypercholesterolemia E78.0 ; COPD (chronic obstructive pulmonary disease) J44.9 ; GERD ( gastroesophageal reflux disease) K21.9 and Dysuria R30.0 [facility] [id number] [place] [address] 42580- 7342 Nov, [facility] [id number] [place] [address] 80641- 9842 Nov, Hypothyroid E03.9 [facility] [id number] [place] [address] 25229- 4293 Nov, Hypothyroid E03.9 ; Angina at rest I20.8 ; CVA (cerebral vascular accident) I63.9 ; Hypercholesterolemia E78.0 ; COPD (chronic obstructive pulmonary disease) J44.9 ; GERD (gastroesophageal reflux disease) K21.9 and Diabetes E11.9 [facility] [id number] [place] [address] 72264 -1627 Oct, Upper respiratory symptom R09.89 [facility] [id number] [place] [address] 13930- 4094 Oct, [facility] [id number] [place] [address] 17999- 6567 Oct, [facility] [id number] [place] [address] 91564- 7126 Oct, [facility] [address] 52680- 0664 Aug, Diabetes mellitus 250.00 ; Encounter for immunization Z23 ; Hypothyroid E03.9 ; Angina at rest I20.8 ; CVA (cerebral vascular accident) I63.9 ; Hypercholesterolemia E78.0 ; COPD (chronic obstructive pulmonary disease ) J44.9 and GERD (gastroesophageal reflux disease) K21.9 [facility] [address] 04496- 9463 Jul, [facility] [address] 62750- 4099 Jun, [facility] [address] 61807- 1821 Jun, [facility] [address] 00493- 1461 May, [facility] [address] 76583- 6996 May, Diabetes mellitus 250.00 ; Hypothyroidism 244.9 ; Angina at rest 413.9 ; CVA (cerebral infarction) 434.91 ; Hypercholesterolemia 272.0 ; COPD (chronic obstructive pulmonary disease) 496 and GERD (gastroesophageal reflux disease) 530.81 [facility] [id number] [place] [address] 32181- 6908 Oct, [facility] [id number] [place] [address] 28769- 1257 Oct, [facility] [address] 76591- 8127 Oct, [facility] [id number] [place] [address] 70539- 0493 Oct, [facility] [address] [place] [address]- 6056 02 Sep, 2010 [facility] [address] [address]- 5303 Aug, [facility] [address] [address]- 8852 15 Aug, 2010 [facility] [address] [address]- 6533 15 Aug, 2010 [facility] [address] [address]- 9627 13 Jul, 2010 [facility] [id number] [place] [address] 02522- 0755 Jan, [facility] [address] [address]- 8085 30 Oct, 2009 [facility] [id number] [place] [address] 94191- 5938 Oct, [facility] [address] [address]- 3758 Sep, [facility] [id number] [place] [address] 16608- 2677 Apr, [facility] [address] [id number] [address]- 5297 Dec, IMMUNIZATIONS No Known Immunizations SOCIAL HISTORY Never Assessed REASON FOR VISIT Lab (walk-in)--[facility] SIGNS MEDICATIONS Unknown Medications RESULTS Name Result Date Reference Range TSH W/ FREE T4 2017-07-11 TSH 7.800 0.450-4.500 T4,Free(Direct) 1.25 0.82-1.77 A1C 2017-07-11 Hemoglobin A1c 6.8 4.8-5.6 CBC 2017-07-11 WBC 7.3 3.4-10.8 RBC 4.28 3.77-5.28 Hemoglobin 12.3 11.1-15.9 Hematocrit 37.6 34.0-46.6 MCV 88 79-97 MCH 28.7 26.6-33.0 MCHC 32.7 31.5-35.7 RDW 14.1 12.3-15.4 Platelets 358 150-379 Neutrophils 49 Lymphs 39 Monocytes 8 Eos 2 Basos 1 Neutrophils (Absolute) 3.7 1.4-7.0 Lymphs (Absolute) 2.8 0.7-3.1 Monocytes(Absolute) 0.6 0.1-0.9 Eos (Absolute) 0.1 0.0-0.4 Baso (Absolute) 0.1 0.0-0.2 Immature Granulocytes 1 Immature Grans (Abs) 0.1 0.0-0.1 LIPID PANEL 2017-07-11 Cholesterol, Total 177 100-199 Triglycerides 254 0-149 HDL Cholesterol 38 >39 VLDL Cholesterol Mack 51 5-40 LDL Cholesterol Calc 88 0-99 CMP 2017-07-11 Glucose, Serum 160 65-99 BUN 18 8-27 Creatinine, Serum 0.60 0.57-1.00 eGFR If NonAfricn Am 91 >59 eGFR If Africn Am 105 >59 BUN/Creatinine Ratio 30 12-28 Sodium, Serum 140 134-144 Potassium, Serum 4.2 3.5-5.2 Chloride, Serum 99 96-106 Carbon Dioxide, Total 25 18-29 Calcium, Serum 9.7 8.7-10.3 Protein, Total, Serum 6.7 6.0-8.5 Albumin, Serum 4.2 3.5-4.8 Globulin, Total 2.5 1.5-4.5 A/G Ratio 1.7 1.2-2.2 Bilirubin, Total 0.2 0.0-1.2 Alkaline Phosphatase, S 58 39-117 AST (SGOT) 12 0-40 ALT (SGPT) 16 0-32 PROCEDURES Procedure Date Ordered Result Body Site LAB NOT BILLED BY [facility] Jul 11, 2017 Hemoglobin Test Send Out 0 dollar Jul 11, 2017 VENIPUNCT, ROUTINE* Jul 11, 2017 INSTRUCTIONS MEDICATIONS ADMINISTERED No Known Medications [...] heart cath 06/2016 Hospitalization History CABG x3 2006 Hospitalization History Gallbladder 2006 Hospitalization History stent 2006 Hospitalization History Right upper lobe Pneumonia 02/24/16 Hospitalization History Chest Pain--[facility] 05/19/16 Hospitalization History Chest pain--[facility] 06/18/16 Hospitalization History Influenza & COPD exacerbation 12/21 Hospitalization History Cardiac Monitoring 01/2018
--- OUTSIDE RECORDS SUMMARY | 2018-04-02 20:59 | XMS REPORT | Continuity of Care Document ---
Author Author [facility] Organization [facility] Address Unknown Phone Unavailable Allergies Active Description Code Type Severity Reaction Onset Reported/Identified Relationship to Patient Clinical Status Yes Sulfa (Sulfonamide Antibiotics) [id number] Drug Allergy Unknown N/A 2007 Yes tramadol [id number] Drug Allergy Unknown N/A 09/01/2008 Yes fentanyl [id number] Drug Allergy Moderate SEVERE NAUSEA/V 06/07/2011 Medications [...] NEC/NOS 06/04/2012 Ot 414.01 CORONARY ATHEROSCLEROSIS OF [place] CORON 06/04/2012 Ot 414.02 CORON ATHEROSCLEROSIS AUTOLOG VEIN BYPAS 06/04/2012 Ot 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 09/09/2012 Ot 250.00 DIAB MARISOL WO COMPL, TYPE II OR UNSPEC TY 09/09/2012 Ot 401.9 HYPERTENSION NOS 09/09/2012 Ot 414.01 CORONARY ATHEROSCLEROSIS OF [place] CORON 09/09/2012 Ot 780.4 DIZZINESS AND GIDDINESS [...] RODARTE MD Ot 414.01 CORONARY ATHEROSCLEROSIS OF [place] CORON 12/22/2013 AZAR RODARTE MD Ot 414.02 [...] HODGE Ot 787.03 VOMITING ALONE 10/18/2014 GERRI HOGDE Ot 787.91 DIARRHEA 07/17/2015 Ot 793.81 07/17/2015 [...] 07/17/2015 JEANINE WHITTAKER DO Ot 241.0 07/17/2015 ASTRE FORTE, AZAR Art Ot 427.89 07/20/2015 AZAR [...] MD Ot I25.10 ATHSCL HEART DISEASE OF [place] CORONARY 02/21/2016 AZAR RODARTE MD Ot I49.5 SICK SINUS SYNDROME 02/21/2016 AZAR RODARTE MD, Ot J44.9 CHRONIC OBSTRUCTIVE PULMONARY DISEASE, U 02/21/2016 AZAR RODARTE MD Ot Z79.899 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 SWING FRAME GRINDER OPERATOR (CURRENT) DRUG THERAPY 02/21/2016 AZAR RODARTE MD [...] MD, Ot J18.9 PNEUMONIA, UNSPECIFIED ORGANISM 02/28/2016 HECTOR COTTO MD, Ot J44.9 CHRONIC OBSTRUCTIVE PULMONARY [...] MD Ot I25.10 ATHSCL HEART DISEASE OF [place] CORONARY 03/04/2016 AZAR RODARTE MD Ot I49.5 SICK SINUS SYNDROME 03/04/2016 AZAR RODARTE MD Ot J44.9 CHRONIC OBSTRUCTIVE PULMONARY DISEASE, U 03/04/2016 AZAR RODARTE MD Ot Z79.899 OTHER CORRECTION (CURRENT) DRUG THERAPY 03/04/2016 AZAR RODARTE MD Ot Z95.1 PRESENCE OF AORTOCORONARY BYPASS GRAFT 04/03/2016 AZAR RODARTE MD Ot E78.0 PURE HYPERCHOLESTEROLEMIA 04/03/2016 AZAR RODARTE MD Ot I25.10 ATHSCL HEART DISEASE OF [place] CORONARY 2016 ОЛЕГ AGUILA Ot E78.2 MIXED HYPERLIPIDEMIA 2016 ОЛЕГ AGUILA Ot I10 ESSENTIAL (PRIMARY) HYPERTENSION 2016 ОЛЕГ AGUILA Ot I25.10 ATHSCL HEART DISEASE OF [place] CORONARY 2016 ОЛЕГ AGUILA Ot 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 04/26/2016 AZAR RODARTE MD Ot E78.0 PURE HYPERCHOLESTEROLEMIA 04/26/2016 AZAR RODARTE MD Ot I25.10 ATHSCL HEART DISEASE OF [place] CORONARY 05/14/2016 ОЛЕГ AGUILA Ot E78.2 MIXED HYPERLIPIDEMIA 05/14/2016 ОЛЕГ AGUILA Ot I10 ESSENTIAL (PRIMARY) HYPERTENSION 05/14/2016 ОЛЕГ AGUILA Ot I25.10 ATHSCL HEART DISEASE OF [place] CORONARY 05/14/2016 ОЛЕГ AGUILA Ot 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 05/20/2016 AZRA DO KODI K Ot E03.9 HYPOTHYROIDISM, UNSPECIFIED 05/20/2016 OQUENDO DO KODI K Ot E11.9 TYPE 2 DIABETES MELLITUS WITHOUT COMPLIC 05/20/2016 OQUENDO DO, KODI K Ot E66.9 OBESITY, UNSPECIFIED 05/20/2016 OQUENDO DO, KODI K Ot I25.10 ATHSCL HEART DISEASE OF [place] CORONARY 05/20/2016 OQUENDO DO KODI K Ot [...] K Ot I25.10 ATHSCL HEART DISEASE OF [place] CORONARY 05/20/2016 OQUENDO DO KODI K Ot [...] AGUILA Ot I25.10 ATHSCL HEART DISEASE OF [place] CORONARY 06/11/2016 ОЛЕГ AGUILA Ot 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 06/20/2016 JAKY BONILLA MD Ot E03.9 HYPOTHYROIDISM, UNSPECIFIED 06/20/2016 JAKY BONILLA MD, Ot E78.5 HYPERLIPIDEMIA, UNSPECIFIED 06/20/2016 JAKY BONILLA MD, Ot I10 ESSENTIAL (PRIMARY) HYPERTENSION 06/20/2016 JAKY BONILLA MD Ot I25.10 ATHSCL HEART DISEASE OF [place] CORONARY 06/20/2016 JAKY BONILLA MD Ot 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 06/20/2016 JAKY BONILLA MD Ot I49.5 SICK SINUS SYNDROME 06/20/2016 JAKY BONILLA MD Ot J44.9 CHRONIC OBSTRUCTIVE PULMONARY DISEASE, U 06/20/2016 JAKY BONILLA MD Ot K20.9 ESOPHAGITIS, UNSPECIFIED 06/20/2016 JAKY BONILLA MD, Ot K44.9 DIAPHRAGMATIC HERNIA WITHOUT OBSTRUCTION 06/20/2016 JAKY BONILLA MD, Ot Z79.899 OTHER CORRECTION (CURRENT) DRUG THERAPY 06/20/2016 JAKY BONILLA MD Ot Z95.1 PRESENCE OF AORTOCORONARY BYPASS GRAFT 07/07/2016 ОЛЕГ AGUILA Ot E78.2 MIXED HYPERLIPIDEMIA 07/07/2016 ОЛЕГ AGUILA Ot I10 ESSENTIAL (PRIMARY) HYPERTENSION 07/07/2016 ОЛЕГ AGUILA Ot I25.10 ATHSCL HEART DISEASE OF [place] CORONARY 07/07/2016 ОЛЕГ AGUILA Ot 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 07/15/2016 ОЛЕГ AGUILA Ot E78.2 MIXED HYPERLIPIDEMIA 07/15/2016 ОЛЕГ AGUILA Ot I10 ESSENTIAL (PRIMARY) HYPERTENSION 07/15/2016 ОЛЕГ AGUILA Ot I25.10 ATHSCL HEART DISEASE OF [place] CORONARY 07/15/2016 ОЛЕГ AGUILA Ot 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 10/20/2017 KEYMARIA Dajuan REEL 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 Ot Z78.0 ASYMPTOMATIC MENOPAUSAL STATE 10/21/2017 MARIA MACKEY Dajuan REEL 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 Ot Z87.891 PERSONAL HISTORY OF NICOTINE DEPENDENCE [...] MD Ot I25.10 ATHSCL HEART DISEASE OF [place] CORONARY 10/21/2017 ОЛЕГ AGUILA Ot E78.2 MIXED HYPERLIPIDEMIA 10/21/2017 ОЛЕГ AGUILA Ot I10 ESSENTIAL (PRIMARY) HYPERTENSION 10/21/2017 ОЛЕГ AGUILA Ot I25.10 ATHSCL HEART DISEASE OF [place] CORONARY 10/21/2017 ОЛЕГ AGUILA Ot 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 10/21/2017 MARIA MACKEYP Ot Z12.31 ENCNTR SCREEN MAMMOGRAM FOR MALIGNANT NE 10/21/2017 MARIA MACKEY REEL 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 Ot Z78.0 ASYMPTOMATIC MENOPAUSAL STATE 10/21/2017 MARIA MACKEY REEL 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 Ot Z87.891 PERSONAL HISTORY OF NICOTINE DEPENDENCE 10/22/2017 MARIA MACKEY REEL 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 Ot Z87.891 PERSONAL HISTORY OF NICOTINE DEPENDENCE [...] SCREENING FOR MALIGNANT NE 11/13/2017 MARIA MACKEY REEL 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 Ot Z78.0 ASYMPTOMATIC MENOPAUSAL STATE 11/13/2017 MADLMARIA REEL 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 Ot Z78.0 ASYMPTOMATIC MENOPAUSAL STATE 11/13/2017 JEANINE WHITTAKER DO Ot V76.12 OTH SCREEN MAMMO-MALIGN NEOPLASM OF [place] 11/13/2017 AZAR RODRATE MD Ot 397.0 TRICUSPID VALVE DISEASE 11/13/2017 [...] MD Ot I25.10 ATHSCL HEART DISEASE OF [place] CORONARY 11/13/2017 ОЛЕГ AGUILA Ot E78.2 MIXED HYPERLIPIDEMIA 11/13/2017 ОЛЕГ AGUILA Ot I10 ESSENTIAL (PRIMARY) HYPERTENSION 11/13/2017 ОЛЕГ AGUILA Ot I25.10 ATHSCL HEART DISEASE OF [place] CORONARY 11/13/2017 ОЛЕГ AGUILA Ot 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 11/13/2017 MARIA MACKEY REEL 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 Ot Z12.31 ENCNTR SCREEN MAMMOGRAM FOR MALIGNANT NE 11/13/2017 MARIA MACKEY REEL 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 Ot Z78.0 ASYMPTOMATIC MENOPAUSAL STATE 11/13/2017 MARIA MACKEY REEL 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 Ot K76.0 FATTY (CHANGE OF) LIVER, NOT ELSEWHERE C 11/13/2017 BECKYLMARIA REEL 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 Ot Z12.2 ENCNTR SCREEN FOR MALIGNANT NEOPLASM OF 11/13/2017 MARIA MACKEY REEL 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 Ot Z87.891 PERSONAL HISTORY OF NICOTINE DEPENDENCE 11/13/2017 MADLSHERIA L REEL 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 Ot Z95.1 PRESENCE OF AORTOCORONARY BYPASS GRAFT 11/13/2017 MIKE FORTE, GLENDY Myles Ot Z01.818 ENCOUNTER FOR OTHER PREPROCEDURAL EXAMIN 11/13/2017 MIKE FORTE, GLENDY Myles Ot Z12.11 ENCOUNTER FOR SCREENING FOR MALIGNANT NE 11/14/2017 MARIA MACKEY REEL 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 Ot 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, 11/14/2017 BECKYLMARIA REEL 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 Ot M85.88 OTH DISRD OF BONE DENSITY AND STRUCTURE, 11/21/2017 BECKYLMARIA REEL 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 Ot K76.0 FATTY (CHANGE OF) LIVER, NOT ELSEWHERE C 11/21/2017 BECKYLMARIA REEL 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 Ot Z12.2 ENCNTR SCREEN FOR MALIGNANT NEOPLASM OF 11/21/2017 MARIA MACKEY L REEL 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 Ot Z87.891 PERSONAL HISTORY OF NICOTINE DEPENDENCE 11/21/2017 BECKYLSHERIA L REEL 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 Ot Z95.1 PRESENCE OF AORTOCORONARY BYPASS GRAFT 12/03/2017 MARIA MACKEY REEL 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 Ot K76.0 FATTY (CHANGE OF) LIVER, NOT ELSEWHERE C 12/03/2017 BECKYL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 Ot Z12.2 ENCNTR SCREEN FOR MALIGNANT NEOPLASM OF 12/03/2017 MARIA MACKEY L REEL 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 Ot Z87.891 PERSONAL HISTORY OF NICOTINE DEPENDENCE 12/03/2017 MADLSEHRIA L REEL 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 Ot Z95.1 PRESENCE OF AORTOCORONARY BYPASS GRAFT 12/09/2017 MARIA MACKEY REEL 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 Ot 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, 12/09/2017 MARIA MACKEY REEL 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 Ot M85.88 OTH DISRD OF BONE DENSITY AND STRUCTURE, 12/09/2017 MARIA MACKEY REEL 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 Ot Z13.820 ENCOUNTER FOR SCREENING FOR OSTEOPOROSIS 12/09/2017 MARIA MACKEY REEL 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 Ot Z78.0 ASYMPTOMATIC MENOPAUSAL STATE 12/18/2017 MARIA MACKEY REEL 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 Ot 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, 12/18/2017 MARIA MACKEY REEL 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 Ot M85.88 OTH DISRD OF BONE DENSITY AND STRUCTURE, 12/18/2017 MARIA MACKEY REEL 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 Ot Z13.820 ENCOUNTER FOR SCREENING FOR OSTEOPOROSIS 12/18/2017 MARIA MACKEY REEL 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 Ot Z78.0 ASYMPTOMATIC MENOPAUSAL STATE 12/24/2017 ALLAN GUZMAN MD, Ot E03.9 HYPOTHYROIDISM, UNSPECIFIED 12/24/2017 ALLAN GUZMAN MD, Ot E11.9 TYPE 2 DIABETES MELLITUS WITHOUT COMPLIC 12/24/2017 ALLAN GUZMAN MD, Ot E78.5 HYPERLIPIDEMIA, UNSPECIFIED 12/24/2017 ALLAN GUZMAN MD, Ot I10 ESSENTIAL (PRIMARY) HYPERTENSION 12/24/2017 ALLAN GUZMAN MD, Ot I25.10 ATHSCL HEART DISEASE OF [place] CORONARY 12/24/2017 ALLAN GUZMAN MD, Ot I25.2 [...] Z87.01 PERSONAL HISTORY OF PNEUMONIA (RECURRENT 12/24/2017 ALLAN GUZMAN MD Ot Z87.891 PERSONAL HISTORY OF NICOTINE DEPENDENCE 12/24/2017 ALLAN GUZMAN MD Ot Z95.1 PRESENCE OF AORTOCORONARY BYPASS GRAFT 12/24/2017 ALLAN GUZMAN MD Ot Z95.5 PRESENCE OF CORONARY ANGIOPLASTY IMPLANT 12/24/2017 ALLAN GUZMAN MD Ot Z99.81 DEPENDENCE ON SUPPLEMENTAL OXYGEN 01/05/2018 JAKY BONILLA MD, Ot E03.9 HYPOTHYROIDISM, UNSPECIFIED 01/05/2018 JAKY BONILLA MD, Ot E11.9 TYPE 2 DIABETES MELLITUS WITHOUT COMPLIC 01/05/2018 JAKY BONILLA MD, Ot E78.5 HYPERLIPIDEMIA, UNSPECIFIED 01/05/2018 JAKY BONILLA MD, Ot I10 ESSENTIAL (PRIMARY) HYPERTENSION 01/05/2018 JAKY BONILLA MD, Ot I25.118 ATHSCL HEART DISEASE OF [place] COR ART W 01/05/2018 JAKY BONILLA MD, Ot I25.2 OLD MYOCARDIAL INFARCTION 01/05/2018 JAKY BONILLA MD, Ot I49.5 SICK SINUS SYNDROME 01/05/2018 JAKY BONILLA MD, Ot 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 01/05/2018 JAKY BONILLA MD, Ot J44.9 CHRONIC OBSTRUCTIVE PULMONARY DISEASE, U 01/05/2018 JAKY BONILLA MD, Ot K21.9 GASTRO-ESOPHAGEAL REFLUX DISEASE WITHOUT 01/05/2018 JAKY BONILLA MD, Ot K44.9 DIAPHRAGMATIC HERNIA WITHOUT OBSTRUCTION 01/05/2018 JAKY BONILLA MD, Ot M19.91 PRIMARY OSTEOARTHRITIS, UNSPECIFIED SITE 01/05/2018 JAKY BONILLA MD, Ot M54.9 DORSALGIA, UNSPECIFIED 01/05/2018 JAKY BONILLA MD, Ot R00.1 BRADYCARDIA, UNSPECIFIED 01/05/2018 JAKY BONILLA MD, Ot Z79.84 SWING FRAME GRINDER OPERATOR (CURRENT) USE OF ORAL HYPOGLYC 01/05/2018 JAKY BONILLA MD, Ot Z86.73 PRSNL HX OF TIA (TIA), AND CEREB INFRC W 01/05/2018 JAKY BONILLA MD, Ot Z87.01 PERSONAL HISTORY OF PNEUMONIA (RECURRENT 01/05/2018 JAKY BONILLA MD, Ot Z87.891 PERSONAL HISTORY OF NICOTINE DEPENDENCE 01/05/2018 JAKY BONILLA MD Ot Z95.1 PRESENCE OF AORTOCORONARY BYPASS GRAFT 01/05/2018 JAKY BONILLA MD Ot Z95.5 PRESENCE OF CORONARY ANGIOPLASTY IMPLANT 01/05/2018 JAKY BONILLA MD Ot Z99.81 DEPENDENCE ON SUPPLEMENTAL OXYGEN 01/15/2018 AZAR RODARTE MD Ot E78.5 HYPERLIPIDEMIA, UNSPECIFIED 01/15/2018 AZAR RODARTE MD Ot I10 ESSENTIAL (PRIMARY) HYPERTENSION 01/15/2018 AZAR RODARTE MD Ot I25.10 ATHSCL HEART DISEASE OF [place] CORONARY 01/15/2018 AZAR RODARTE MD Ot I34.0 NONRHEUMATIC MITRAL (VALVE) INSUFFICIENC 01/15/2018 AZAR RODARTE MD Ot R07.9 CHEST PAIN, UNSPECIFIED 01/20/2018 AZAR RODARTE MD Ot E78.2 MIXED HYPERLIPIDEMIA 01/20/2018 AZAR RODARTE MD Ot I10 ESSENTIAL (PRIMARY) HYPERTENSION 01/20/2018 AZAR RODARTE MD Ot I25.10 ATHSCL HEART DISEASE OF [place] CORONARY 01/20/2018 AZAR RODARTE MD Ot R07.9 CHEST PAIN, UNSPECIFIED 02/10/2018 AZAR RODARTE MD Ot E78.2 MIXED HYPERLIPIDEMIA 02/10/2018 AZAR RODARTE MD Ot I10 ESSENTIAL (PRIMARY) HYPERTENSION 02/10/2018 AZAR RODARTE MD Ot I25.10 ATHSCL HEART DISEASE OF [place] CORONARY 02/10/2018 AZAR RODARTE MD Ot R07.9 CHEST PAIN, UNSPECIFIED Procedures There is no data. Results Test [...] measurement by glucometer (mass/volume) 181 mg/dL 70-110 TSH+Free T4 - 09/24/16 09:41 TSH 3.680 uIU/mL 0.450-4.500 T4,Free(Direct) 1.62 ng/dL 0.82-1.77 CBC With Differential/Platelet - 09/24/16 09:41 WBC 7.4 x10E3/uL 3.4-10.8 RBC 4.23 x10E6/uL 3.77-5.28 Hemoglobin 12.3 g/dL 11.1-15.9 Hematocrit 37.6 % 34.0-46.6 MCV 89 fL 79-97 MCH 29.1 pg 26.6-33.0 MCHC 32.7 g/dL 31.5-35.7 RDW 14.7 % 12.3-15.4 Platelets 361 x10E3/uL 150-379 Neutrophils 57 % Lymphs 33 % Monocytes 7 % Eos 1 % Basos 1 % Neutrophils (Absolute) 4.2 x10E3/uL 1.4-7.0 Lymphs (Absolute) 2.4 x10E3/uL 0.7-3.1 Monocytes(Absolute) 0.5 x10E3/uL 0.1-0.9 Eos (Absolute) 0.1 x10E3/uL 0.0-0.4 Baso (Absolute) 0.0 x10E3/uL 0.0-0.2 Immature Granulocytes 1 % Immature Grans (Abs) 0.1 x10E3/uL 0.0-0.1 Comp. Metabolic Panel (14) - 09/24/16 09:41 Glucose, Serum 123 mg/dL 65-99 BUN 13 mg/dL 8-27 Creatinine, Serum 0.58 mg/dL 0.57-1.00 eGFR If NonAfricn Am 92 mL/min/1.73 >59 eGFR If Africn Am 106 mL/min/1.73 >59 BUN/Creatinine Ratio 22 11-26 Sodium, Serum 143 mmol/L 136-144 Potassium, Serum 4.1 mmol/L 3.5-5.2 Chloride, Serum 101 mmol/L 97-106 Carbon Dioxide, Total 25 mmol/L 18-29 Calcium, Serum 9.6 mg/dL 8.7-10.3 Protein, Total, Serum 6.5 g/dL 6.0-8.5 Albumin, Serum 4.2 g/dL 3.5-4.8 Globulin, Total 2.3 g/dL 1.5-4.5 A/G Ratio 1.8 1.1-2.5 Bilirubin, Total 0.3 mg/dL 0.0-1.2 Alkaline Phosphatase, S 56 IU/L 39-117 AST (SGOT) 16 IU/L 0-40 ALT (SGPT) 17 IU/L 0-32 Lipid Panel - 09/24/16 09:41 Cholesterol, Total 169 mg/dL 100-199 Triglycerides 155 mg/dL 0-149 HDL Cholesterol 42 mg/dL >39 VLDL Cholesterol Mack 31 mg/dL 5-40 LDL Cholesterol Calc 96 mg/dL 0-99 TSH+Free T4 - 03/06/17 10:02 TSH 2.270 uIU/mL 0.450-4.500 T4,Free(Direct) 1.67 ng/dL 0.82-1.77 CBC With Differential/Platelet - 03/06/17 10:02 WBC 7.9 x10E3/uL 3.4-10.8 RBC 4.38 x10E6/uL 3.77-5.28 Hemoglobin 12.6 g/dL 11.1-15.9 Hematocrit 38.9 % 34.0-46.6 MCV 89 fL 79-97 MCH 28.8 pg 26.6-33.0 MCHC 32.4 g/dL 31.5-35.7 RDW 14.2 % 12.3-15.4 Platelets 333 x10E3/uL 150-379 Neutrophils 54 % Lymphs 37 % Monocytes 8 % Eos 1 % Basos 0 % Neutrophils (Absolute) 4.2 x10E3/uL 1.4-7.0 Lymphs (Absolute) 3.0 x10E3/uL 0.7-3.1 Monocytes(Absolute) 0.6 x10E3/uL 0.1-0.9 Eos (Absolute) 0.1 x10E3/uL 0.0-0.4 Baso (Absolute) 0.0 x10E3/uL 0.0-0.2 Immature Granulocytes 0 % Immature Grans (Abs) 0.0 x10E3/uL 0.0-0.1 Comp. Metabolic Panel (14) - 03/06/17 10:02 Glucose, Serum 126 mg/dL 65-99 BUN 15 mg/dL 8-27 Creatinine, Serum 0.74 mg/dL 0.57-1.00 eGFR If NonAfricn Am 81 mL/min/1.73 >59 eGFR If Africn Am 94 mL/min/1.73 >59 BUN/Creatinine Ratio 20 12-28 Sodium, Serum 142 mmol/L 134-144 Potassium, Serum 4.3 mmol/L 3.5-5.2 Chloride, Serum 100 mmol/L 96-106 Carbon Dioxide, Total 26 mmol/L 18-29 Calcium, Serum 9.3 mg/dL 8.7-10.3 Protein, Total, Serum 7.1 g/dL 6.0-8.5 Albumin, Serum 4.4 g/dL 3.5-4.8 Globulin, Total 2.7 g/dL 1.5-4.5 A/G Ratio 1.6 1.2-2.2 Bilirubin, Total 0.3 mg/dL 0.0-1.2 Alkaline Phosphatase, S 54 IU/L 39-117 AST (SGOT) 14 IU/L 0-40 ALT (SGPT) 17 IU/L 0-32 Lipid Panel - 03/06/17 10:02 Cholesterol, Total 194 mg/dL 100-199 Triglycerides 196 mg/dL 0-149 HDL Cholesterol 40 mg/dL >39 VLDL Cholesterol Mack 39 mg/dL 5-40 LDL Cholesterol Calc 115 mg/dL 0-99 CMP - 07/11/17 09:10 Glucose, Serum 160 mg/dL 65-99 BUN 18 mg/dL 8-27 Creatinine, Serum 0.60 mg/dL 0.57-1.00 eGFR If NonAfricn Am 91 mL/min/1.73 >59 eGFR If Africn Am 105 mL/min/1.73 >59 BUN/Creatinine Ratio 30 12-28 Sodium, Serum 140 mmol/L 134-144 Potassium, Serum 4.2 mmol/L 3.5-5.2 Chloride, Serum 99 mmol/L 96-106 Carbon Dioxide, Total 25 mmol/L 18-29 Calcium, Serum 9.7 mg/dL 8.7-10.3 Protein, Total, Serum 6.7 g/dL 6.0-8.5 Albumin, Serum 4.2 g/dL 3.5-4.8 Globulin, Total 2.5 g/dL 1.5-4.5 A/G Ratio 1.7 1.2-2.2 Bilirubin, Total 0.2 mg/dL 0.0-1.2 Alkaline Phosphatase, S 58 IU/L 39-117 AST (SGOT) 12 IU/L 0-40 ALT (SGPT) 16 IU/L 0-32 TSH+Free T4 - 07/11/17 09:10 TSH 7.800 uIU/mL 0.450-4.500 T4,Free(Direct) 1.25 ng/dL 0.82-1.77 CBC With Differential/Platelet - 07/11/17 09:10 WBC 7.3 x10E3/uL 3.4-10.8 RBC 4.28 x10E6/uL 3.77-5.28 Hemoglobin 12.3 g/dL 11.1-15.9 Hematocrit 37.6 % 34.0-46.6 MCV 88 fL 79-97 MCH 28.7 pg 26.6-33.0 MCHC 32.7 g/dL 31.5-35.7 RDW 14.1 % 12.3-15.4 Platelets 358 x10E3/uL 150-379 Neutrophils 49 % Lymphs 39 % Monocytes 8 % Eos 2 % Basos 1 % Neutrophils (Absolute) 3.7 x10E3/uL 1.4-7.0 Lymphs (Absolute) 2.8 x10E3/uL 0.7-3.1 Monocytes(Absolute) 0.6 x10E3/uL 0.1-0.9 Eos (Absolute) 0.1 x10E3/uL 0.0-0.4 Baso (Absolute) 0.1 x10E3/uL 0.0-0.2 Immature Granulocytes 1 % Immature Grans (Abs) 0.1 x10E3/uL 0.0-0.1 Comp. Metabolic Panel (14) - 07/11/17 09:10 Glucose, Serum 160 mg/dL 65-99 BUN 18 mg/dL 8-27 Creatinine, Serum 0.60 mg/dL 0.57-1.00 eGFR If NonAfricn Am 91 mL/min/1.73 >59 eGFR If Africn Am 105 mL/min/1.73 >59 BUN/Creatinine Ratio 30 12-28 Sodium, Serum 140 mmol/L 134-144 Potassium, Serum 4.2 mmol/L 3.5-5.2 Chloride, Serum 99 mmol/L 96-106 Carbon Dioxide, Total 25 mmol/L 18-29 Calcium, Serum 9.7 mg/dL 8.7-10.3 Protein, Total, Serum 6.7 g/dL 6.0-8.5 Albumin, Serum 4.2 g/dL 3.5-4.8 Globulin, Total 2.5 g/dL 1.5-4.5 A/G Ratio 1.7 1.2-2.2 Bilirubin, Total 0.2 mg/dL 0.0-1.2 Alkaline Phosphatase, S 58 IU/L 39-117 AST (SGOT) 12 IU/L 0-40 ALT (SGPT) 16 IU/L 0-32 Lipid Panel - 07/11/17 09:10 Cholesterol, Total 177 mg/dL 100-199 Triglycerides 254 mg/dL 0-149 HDL Cholesterol 38 mg/dL >39 VLDL Cholesterol Mack 51 mg/dL 5-40 LDL Cholesterol Calc 88 mg/dL 0-99 Hemoglobin A1c - 07/11/17 09:10 Hemoglobin A1c 6.8 % 4.8-5.6 TSH - 08/06/17 17:27 TSH 2.410 uIU/mL 0.450-4.500 TSH - 08/06/17 17:27 TSH 2.410 uIU/mL 0.450-4.500 CBC - 11/19/17 16:27 WHITE BLOOD CELL COUNT 9.7 Thousand/uL 3.8-10.8 RED BLOOD CELL COUNT 4.52 Million/uL 3.80-5.10 HEMOGLOBIN 12.5 g/dL 11.7-15.5 HEMATOCRIT 38.9 % 35.0-45.0 MCV 86.1 fL 80.0-100.0 MCH 27.7 pg 27.0-33.0 MCHC 32.1 g/dL 32.0-36.0 RDW 13.3 % 11.0-15.0 PLATELET COUNT 299 Thousand/uL 140-400 MPV 10.2 fL 7.5-12.5 ABSOLUTE NEUTROPHILS 6518 cells/uL 1301-0772 ABSOLUTE LYMPHOCYTES 2289 cells/uL 850-3900 ABSOLUTE MONOCYTES 708 cells/uL 200-950 ABSOLUTE EOSINOPHILS 136 cells/uL 15-500 ABSOLUTE BASOPHILS 49 cells/uL 0-200 NEUTROPHILS 67.2 % NRG LYMPHOCYTES 23.6 % NRG MONOCYTES 7.3 % NRG EOSINOPHILS 1.4 % NRG BASOPHILS 0.5 % NRG BNP - 11/19/17 16:27 B TYPE NATRIURETIC PEPTIDE (BNP) 57 pg/mL <100 Influenza virus A and B antigen detection - 12/20/17 20:37 CALL POSITIVES (F1 HELP) [place] NRG FLU RESULT POSITIVE FOR INFLUENZA B ANTIGEN, NEG FOR A ANTIGEN, BY [facility] Complete blood count (CBC) with [...] culture - 12/20/17 22:50 Bacterial urine culture [id number] NRG COLONY COUNT 10,000/ML - 100,000/ML NRG FTX;REPORTABLE SENSITIVITY REPORTED AT 0848, 2- NRG Bacterial susceptibility panel - 12/20/17 22:50 [...] i.cardiac measurement (mass/volume) < ng/ mL <0.30 Serum or plasma troponin i.cardiac measurement (mass/volume) - 01/03/18 21:03 Serum or plasma troponin i.cardiac measurement (mass/volume) < ng/ mL <0.30 Complete blood count (CBC) with automated white blood cell (WBC) differential - 01/04/18 03:15 Blood leukocytes automated count (number/volume) 7.8 10*3/uL 4.3-11.0 Blood erythrocytes automated count (number/volume) 4.34 10*6/uL 4.35-5.85 Venous blood hemoglobin measurement (mass/volume) 12.3 g/dL 11.5-16.0 Blood hematocrit (volume fraction) 38 % 35-52 Automated erythrocyte mean corpuscular volume 86 [foz_us] 80-99 Automated erythrocyte mean corpuscular hemoglobin (mass per erythrocyte) 28 pg 25-34 Automated erythrocyte mean corpuscular hemoglobin concentration measurement ( mass/volume) 33 g/dL 32-36 Automated erythrocyte distribution width ratio 15.6 % 10.0-14.5 Automated blood platelet count (count/volume) 291 10*3/uL 130-400 Automated blood platelet mean volume measurement 10.2 [foz_us] 7.4-10.4 Automated blood neutrophils/100 leukocytes 50 % 42-75 Automated blood lymphocytes/100 leukocytes 40 % 12-44 Blood monocytes/100 leukocytes 8 % 0-12 Automated blood eosinophils/100 leukocytes 2 % 0-10 Automated blood basophils/100 leukocytes 1 % 0-10 Blood neutrophils automated count (number/volume) 3.9 10*3 1.8-7.8 Blood lymphocytes automated count (number/volume) 3.1 10*3 1.0-4.0 Blood monocytes automated count (number/volume) 0.6 10*3 0.0-1.0 Automated eosinophil count 0.1 10*3/uL 0.0-0.3 Automated blood basophil count (count/volume) 0.0 10*3/uL 0.0-0.1 Comprehensive metabolic panel - 01/04/18 03:15 Serum or plasma sodium measurement (moles/volume) 142 mmol/L 135-145 Serum or plasma potassium measurement (moles/volume) 3.4 mmol/L 3.6-5.0 Serum or plasma chloride measurement (moles/volume) 109 mmol/L 98-107 Carbon dioxide 20 mmol/L 21-32 Serum or plasma anion gap determination (moles/volume) 13 mmol/L 5-14 Serum or plasma urea nitrogen measurement (mass/volume) 16 mg/dL 7-18 Serum or plasma creatinine measurement (mass/volume) 0.66 mg/dL 0.60-1.30 Serum or plasma urea nitrogen/creatinine mass ratio 24 NRG Serum or plasma creatinine measurement with calculation of estimated glomerular filtration rate > NRG Serum or plasma glucose measurement (mass/volume) 129 mg/dL 70-105 Serum or plasma calcium measurement (mass/volume) 8.9 mg/dL 8.5-10.1 Serum or plasma total bilirubin measurement (mass/volume) 0.4 mg/dL 0.1-1.0 Serum or plasma alkaline phosphatase measurement (enzymatic activity/volume) 46 U/L 40-136 Serum or plasma aspartate aminotransferase measurement (enzymatic activity/ volume) 14 U/L 5-34 Serum or plasma alanine aminotransferase measurement (enzymatic activity/volume ) 16 U/L 0-55 Serum or plasma protein measurement (mass/volume) 6.3 g/dL 6.4-8.2 Serum or plasma albumin measurement (mass/volume) 3.7 g/dL 3.2-4.5 Serum or plasma troponin i.cardiac measurement (mass/volume) - 01/04/18 03:15 Serum or plasma troponin i.cardiac measurement (mass/volume) < ng/ mL <0.30 Serum or plasma troponin i.cardiac measurement (mass/volume) - 01/04/18 09:33 Serum or plasma troponin i.cardiac measurement (mass/volume) < ng/ mL <0.30 Capillary blood glucose measurement by glucometer (mass/volume) - 01/04/18 16: 28 Capillary blood glucose measurement by glucometer (mass/volume) 169 mg/dL 70-110 Capillary blood glucose measurement by glucometer (mass/volume) - 01/04/18 20: 58 Capillary blood glucose measurement by glucometer (mass/volume) 159 mg/dL 70-110 Complete blood count (CBC) with automated white blood cell (WBC) differential - 01/05/18 03:10 Blood leukocytes automated count (number/volume) 7.0 10*3/uL 4.3-11.0 Blood erythrocytes automated count (number/volume) 4.39 10*6/uL 4.35-5.85 Venous blood hemoglobin measurement (mass/volume) 12.6 g/dL 11.5-16.0 Blood hematocrit (volume fraction) 38 % 35-52 Automated erythrocyte mean corpuscular volume 87 [foz_us] 80-99 Automated erythrocyte mean corpuscular hemoglobin (mass per erythrocyte) 29 pg 25-34 Automated erythrocyte mean corpuscular hemoglobin concentration measurement ( mass/volume) 33 g/dL 32-36 Automated erythrocyte distribution width ratio 15.8 % 10.0-14.5 Automated blood platelet count (count/volume) 259 10*3/uL 130-400 Automated blood platelet mean volume measurement 10.2 [foz_us] 7.4-10.4 Automated blood neutrophils/100 leukocytes 46 % 42-75 Automated blood lymphocytes/100 leukocytes 43 % 12-44 Blood monocytes/100 leukocytes 9 % 0-12 Automated blood eosinophils/100 leukocytes 2 % 0-10 Automated blood basophils/100 leukocytes 1 % 0-10 Blood neutrophils automated count (number/volume) 3.2 10*3 1.8-7.8 Blood lymphocytes automated count (number/volume) 3.0 10*3 1.0-4.0 Blood monocytes automated count (number/volume) 0.7 10*3 0.0-1.0 Automated eosinophil count 0.1 10*3/uL 0.0-0.3 Automated blood basophil count (count/volume) 0.0 10*3/uL 0.0-0.1 Whole blood basic metabolic panel - 01/05/18 03:10 Serum or plasma sodium measurement (moles/volume) 141 mmol/L 135-145 Serum or plasma potassium measurement (moles/volume) 4.0 mmol/L 3.6-5.0 Serum or plasma chloride measurement (moles/volume) 111 mmol/L 98-107 Carbon dioxide 22 mmol/L 21-32 Serum or plasma anion gap determination (moles/volume) 8 mmol/L 5-14 Serum or plasma urea nitrogen measurement (mass/volume) 15 mg/dL 7-18 Serum or plasma creatinine measurement (mass/volume) 0.66 mg/dL 0.60-1.30 Serum or plasma urea nitrogen/creatinine mass ratio 23 NRG Serum or plasma creatinine measurement with calculation of estimated glomerular filtration rate > NRG Serum or plasma glucose measurement (mass/volume) 140 mg/dL 70-105 Serum or plasma calcium measurement (mass/volume) 9.2 mg/dL 8.5-10.1 Magnesium - 01/05/18 03:10 Magnesium 2.3 mg/dL 1.8-2.4 THYROID STIMULATING HORMONE - 01/05/18 03:10 THYROID STIMULATING HORMONE 3.06 u[iU]/mL 0.35-4.94 TSH - 03/09/18 13:27 TSH 5.76 mIU/L 0.40-4.50 Encounters ACCT No. Visit Date/Time Discharge Status Pt. Type Provider Facility Loc./Unit Complaint [id number] 01/19/2018 07:30:00 01/19/2018 23:59:59 CLS Outpatient ASTER FORTE, AZAR [facility] CARD CAD [id number] 01/14/2018 11:35:00 01/14/2018 23:59:59 CLS Outpatient ASTER FORTE, AZAR Art [facility] CARD CAD [id number] 01/03/2018 17:00:00 01/05/2018 14:00:00 DIS Inpatient JAKY BONILLA MD [facility] ICU CHEST PAIN, ANGINA [id number] 12/20/2017 21:50:00 12/24/2017 18:13:00 DIS Inpatient MEGAN FORTE, ALLAN Espino [facility] 4TH INFLUENZA B; COPD EXACERBATION [id number] 11/13/2017 08:38:00 11/13/2017 23:59:59 CLS Outpatient MADL, 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 [facility] RAD Z78.0 POST MENOPAUSAL [id number] 11/10/2017 09:00:00 11/10/2017 23:59:59 CLS Preadmit GLENDY MCKEON MD [facility] ENDO SCREENING [id number] 11/04/2017 05:19:00 11/04/2017 23:59:59 CLS Outpatient GLENDY MCKEON MD [facility] PREOP COLONOSCOPY [id number] 10/28/2017 07:43:00 10/28/2017 23:59:59 CLS Outpatient 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, 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 [facility] RAD SCREENING [id number] 10/09/2017 11:32:00 10/09/2017 23:59:59 CLS Preadmit MADL, 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 [facility] RAD Z12.31 SCREENING [id number] 07/08/2016 10:30:00 07/08/2016 23:59:59 CLS Preadmit ОЛЕГ AGUILA [facility] CARD CAD,SHAN,HTN, HLP [id number] 04/08/2016 10:34:00 07/07/2016 00:01:00 DIS Outpatient ОЛЕГ AGUILA [facility] CARD CAD,SHAN,HTN, HLP [id number] 06/18/2016 19:00:00 06/20/2016 08:01:00 DIS Outpatient JAKY BONILLA MD [facility] CATH CHEST PAIN [id number] 05/19/2016 15:07:00 05/20/2016 15:29:00 DIS Inpatient AZRA DO KODI Canales [facility] 4TH CHEST PAIN [id number] 04/02/2016 09:55:00 04/02/2016 23:59:59 CLS Outpatient AZAR RODARTE MD [facility] HH CAD, ELEVATED CHOLESTEROL [id number] 02/24/2016 18:31:00 02/28/2016 12:38:00 DIS Inpatient HECTOR COTTO MD Via [address] RT UPPER LOBE PNEUMONIA [id number] 02/21/2016 09:38:00 02/21/2016 10:50:00 DIS Outpatient AZAR RODARTE MD [facility] CAD,HTN,HLP [id number] 07/24/2015 07:11:00 07/24/2015 23:59:59 CLS Outpatient AZAR RODARTE MD [facility] CARD CAD,NEAR SYCOPE,HTN [id number] 07/17/2015 08:28:00 07/17/2015 23:59:59 CLS Outpatient ОЛЕГ AGUILA [facility] CARD CAD,DYSPNEA, HTN,NEAR SYNCOPE [id number] 06/30/2015 13:45:00 06/30/2015 23:59:59 CLS Outpatient AZAR RODARTE MD [facility] CARD BRADYCARDIA [id number] 10/18/2014 11:27:00 10/18/2014 14:17:00 DIS Emergency GERRI HODGE [facility] ER WEAK,DIZZY, N/V [id number] 08/18/2014 08:16:00 08/18/2014 11:05:00 DIS Emergency MARILYN FUCHS MD [facility] ER WEAKNESS [id number] 02/10/2014 15:15:00 02/10/2014 17:35:00 DIS Emergency TRISHA DUNN DO [facility] ER NEAR SYNCOPE [id number] 12/22/2013 07:52:00 12/22/2013 15:25:00 DIS Outpatient AZAR RODARTE MD [facility] CATH CP,HLP,HTN, [id number] 10/11/2013 11:23:00 10/11/2013 23:59:59 CLS Outpatient JEANINE WHITTAKER DO [facility] RAD THYROID NODULES [id number] 09/28/2013 16:10:00 09/28/2013 23:59:59 CLS Outpatient MORGAN SALES DO [facility] RAD SOB,CYANOSIS [id number] 09/10/2013 20:01:00 09/11/2013 06:45:00 DIS Outpatient MORGAN SALES DO [facility] SLEEP COPD,DYSPNEA,EXCESSIVE SLEEPINESS [id number] 08/25/2013 11:34:00 08/25/2013 23:59:59 CLS Outpatient MORGAN SALES DO [facility] RT COPD,DYSPNEA [id number] 08/18/2013 07:31:00 08/18/2013 23:59:59 CLS Outpatient AZAR RODARTE MD [facility] RAD DYSPNEA,CAD,COPD [id number] 08/13/2013 07:57:00 08/13/2013 23:59:59 CLS Outpatient AZAR RODARTE MD [facility] CARD DYSPNEA,CAD,COPD [id number] 06/26/2013 14:41:00 06/26/2013 23:59:59 CLS Outpatient [id number] 06/15/2013 10:30:00 06/15/2013 23:59:59 CLS Outpatient JEANINE WHITTAKER DO [facility] RAD SCREENING [id number] 11/24/2015 13:37:00 Document Registration [id number] 07/17/2015 08:28:00 Document Registration [id number] 06/02/2012 22:50:00 Document Registration [id number] 05/19/2012 08:33:00 Document Registration [id number] 07/10/2011 07:30:00 Document Registration [id number] 06/26/2011 10:27:00 Document Registration [id number] 06/07/2011 02:00:00 Document Registration [id number] 08/15/2010 09:05:00 Document Registration [id number] 08/01/2010 09:03:00 Document Registration [id number] 06/28/2010 11:39:00 Document Registration [id number] 06/12/2010 13:36:00 Document Registration [id number] 02/09/2010 11:36:00 Document Registration [id number] 01/26/2007 11:54:00 Document Registration [id number] 03/09/2018 13:00:00 03/09/2018 23:59:59 CLS Outpatient MADL COMPLIANCE PARALEGAL, MARIA L [facility] [id number] 03/09/2018 13:00:00 Document Registration [id number] 11/19/2017 15:20:00 Document Registration [id number] 08/06/2017 16:20:00 Document Registration [id number] 07/11/2017 09:00:00 Document Registration [id number] 08/07/2017 08:06:00 Document Registration [id number] 09/26/2016 08:06:00 Document Registration [id number] 07/12/2017 09:08:00 Document Registration [id number] 07/24/2015 07:15:48 ACT Document Registration [id number] 03/07/2017 10:09:00 Document Registration
--- NOTE | 2018-04-02 21:02 | ED Fall/Injury ---
General Stated Complaint: FALL Source: patient Exam Limitations: no limitations History of Present Illness Date Seen by Provider: April 02, 2018 Time Seen by Provider: 20:46 Initial Comments Here with report of fall approximately 30-45 minutes ago. She tripped over a tire while walking backwards. She hit her left elbow and the left side of her head. Has contusion without laceration to the left side of her head and abrasion to the left elbow. Denies pain of the left hip or anywhere in the pelvis. Denies neck pain. Not sure she was knocked out but states that she felt like she was out for a second or 2. She was assisted to sitting and felt a little dizzy but otherwise denies nausea or other concerns currently. She is on clopidogrel Occurred: just prior to arrival Severity: moderate Injuries/Pain Location: head Context: tripped Loss of Consciousness: brief (seconds) Modifying Factors: Worse With Movement; Improves With Rest Associated Symptoms (Fall): No Chest Pain; Headache, Lightheadedness; No Muscle Spasms, No Nausea/Vomiting, No Neck Pain, No Shortness of Air Allergies and Home Medications Allergies Coded Allergies: fentanyl (Unverified Allergy, Intermediate, SEVERE NAUSEA/VOMITTING, ) Sulfa (Sulfonamide Antibiotics) (Verified Allergy, Unknown, 03/15/08) tramadol (Verified Allergy, Unknown, 09/01/08) Home Medications Acetaminophen 500 Mg Tablet, 1,000 MG PO Q6H PRN for PAIN-MILD, (Reported) TAKES 2 (500 MG) TABLETS Aspirin 81 Mg Tab.chew, 81 MG PO DAILY Prescribed by: JAKY CARRENO on 01/05/18 1252 Atorvastatin Calcium 40 Mg Tablet, 40 MG PO HS, (Reported) Clopidogrel Bisulfate 75 Mg Tablet, 75 MG PO DAILY, (Reported) Dapagliflozin Propanediol 5 Mg Tablet, 5 MG PO DAILY, (Reported) Fenofibrate 160 Mg Tablet, 160 MG PO DAILY, (Reported) Isosorbide Mononitrate 60 Mg Tab, 60 MG PO DAILY, (Reported) Levothyroxine Sodium 75 Mcg Tablet, 75 MCG PO DAILY, (Reported) Losartan Potassium 50 Mg Tablet, 50 MG PO DAILY, (Reported) Nitroglycerin 4.9 Gm [place], 1 SPRAY SL UD PRN for CHEST PAIN, (Reported) Pantoprazole Sodium 40 Mg Tablet.dr, 40 MG PO DAILY, (Reported) Ranolazine 1,000 Mg Tab.er.12h, 1,000 MG PO BID, (Reported) Sitagliptin Phos/Metformin HCl 1 Each Tablet, 1 TAB PO BID, (Reported) Patient Home Medication List Home Medication List Reviewed: Yes Review of Systems Constitutional: see HPI, dizziness; No weakness Eyes: No Symptoms Reported Ears, Nose, Mouth, Throat: no symptoms reported Respiratory: No cough, No short of breath Cardiovascular: No chest pain, No syncope Gastrointestinal: No abdominal pain, No nausea, No vomiting Musculoskeletal: see HPI; No back pain, No neck pain Skin: see HPI, change in color, lesions Psychiatric/Neurological: Headache; Denies Numbness, Denies Weakness Past Pfxhvyi-Fwmnbg-Xekfqh Hx Past Med/Social Hx: Reviewed Nursing Past Med/Soc Hx Patient Social History Type Used: Cigarettes Former Smoker, Quit: May 19, 2009 Recent Hopitalizations: Yes Immunizations Up To Date Tetanus Booster (TDap): Unknown PED Vaccines UTD: Yes Date of Pneumonia Vaccine: Aug 03, 2017 Date of Influenza Vaccine: Aug 03, 2017 Seasonal Allergies Seasonal Allergies: No Past Medical History Surgeries: Yes Cardiac, CABG, Coronary Stent, Gallbladder, Hysterectomy Respiratory: Yes (O2 WITH ANY ACTIVITY AND AT HS) Pneumonia, COPD Currently Using CPAP: No Currently Using BIPAP: No Cardiac: Yes (BRADYCARDIA) Coronary Artery Disease, Heart Attack, High Cholesterol, Hypertension Neurological: Yes Stroke Reproductive Disorders: No Sexually Transmitted Disease: No HIV/AIDS: No Genitourinary: No Gastrointestinal: Yes Gastroesophageal Reflux, Esophagitis, Hiatal Hernia Musculoskeletal: Yes Arthritis, Chronic Back Pain Endocrine: Yes Hypothyroidsim, Diabetes, Non-Insulin dep HEENT: No Cancer: No Psychosocial: No Integumentary: No Blood Disorders: No Adverse Reaction/Blood Tranf: No Family Medical History Reviewed Nursing Family Hx Arthritis 19 FATHER Asthma 19 MOTHER Cardiovascular disease 19 MOTHER G8 BROTHER G8 SISTER G8 SISTER G8 SISTER Cataracts 19 FATHER Diabetes mellitus 19 MOTHER G8 BROTHER G8 SISTER G8 SISTER G8 SISTER Hypertension 19 MOTHER Myocardial infarction 19 MOTHER G8 SISTER G8 SISTER Parkinson's disease G8 BROTHER Prostate cancer 19 FATHER Respiratory disorder G8 BROTHER Thyroid disease 19 MOTHER Physical Exam Vital Signs Vital Signs - First Documented 04/02/18 20:45 Temp 98.4 Pulse 78 Resp 27 B/P (MAP) 144/93 (110) O2 Delivery Room Air Capillary Refill : General Appearance: WD/WN, mild distress (headache) Neck: non-tender, full range of motion, supple, normal inspection Cardiovascular: regular rate, rhythm, no murmur Respiratory: lungs clear, normal breath sounds Gastrointestinal: non tender, soft Back: normal inspection, no CVA tenderness, no vertebral tenderness Extremities: normal range of motion, non-tender, pelvis stable Neurologic/Psychiatric: alert, oriented x 3 Skin: other (abrasion to the left elbow lateral aspect 4 x 4 centimeters with good range of motion and no deformity. 5 x 5 cm area of scalp hematoma to the left posterior without laceration.) [place] Coma Score Best Eye Response: (4) Open Spontaneously Best Verbal Response: (5) Oriented Best Motor Response: (6) Obeys Commands Progress/Results/Core Measures Results/Orders My Orders Orders - ALLISON PUCKETT MD Ct Head/Cervical Spine Wo (04/02/18 20:51) Dipht,Pertuss(Acell),Tet Adult (Boostrix (04/02/18 20:51) Vital Signs/I&O 04/02/18 20:45 Temp 98.4 Pulse 78 Resp 27 B/P (MAP) 144/93 (110) O2 Delivery Room Air Progress Progress Note : Progress Note Seen and evaluated the patient. CT head and neck ordered. We will get tetanus updated. Wound on left elbow cleaned and dressed by nursing. Monitor patient. She does declined pain or nausea medicine at this time. 2145: CT negative. Discharged home with return precautions. Patient verbalize understanding instructions and agreement with plan. She will be staying with friends tonight to help with monitoring her. Diagnostic Imaging Diagonstic Imaging: CT Plain Films/CT/US/NM/MRI: c-spine, head Comments VIA [facility]. [place], [place] NAME: VINAY KAY Damaris MED REC#: [id number] PT STATUS: REG ER : 1945 PHYSICIAN: ALLISON PUCKETT MD ADMIT DATE: 04/02/18/ER Draft Date of Exam:04/02/18 CT HEAD/CERVICAL SPINE WO PROCEDURE: CT head and CT cervical spine without contrast. TECHNIQUE: Multiple contiguous axial images were obtained through the brain and cervical spine without the use of intravenous contrast. Sagittal and coronal reformations through the cervical spine were then performed. INDICATION: Fell and hit back of head. FINDINGS: The ventricles are normal in size, shape and position. There is no acute parenchymal hemorrhage, edema or mass. There is no extra-axial mass or hemorrhage. There is no skull fracture. There is normal height and alignment of the cervical vertebral bodies. Disc spaces are well maintained. There is mild spondylosis. No fracture or other acute abnormality is seen. IMPRESSION: CT of the head and cervical spine shows no acute abnormality. Dictated on workstation # [id number] Dict: 04/02/182120 Trans: 04/02/182122 [facility] [id number] Interpreted by: ENRIQUE DESAI MD Electronically signed by: Departure Impression Primary Impression: Head injury, closed, with brief LOC Additional Impressions: Scalp hematoma Qualified Codes: S00.03XA - Contusion of scalp, initial encounter Abrasion of left elbow, initial encounter Disposition: HOME, SELF-CARE Condition: Improved Departure-Patient Inst. Decision time for Depature: 21:52 Referrals: KODI OQUENDO DO (PCP) Primary Care Physician MARIA MACKEY (Family) Primary Care Physician Patient Instructions: Concussion, Adult (DC), Skin Abrasions (DC) Add. Discharge Instructions: You may take Tylenol Extra Strength 2 tablets every 6 hours as needed for pain. Return for worse pain, vomiting 3 times in 12 hours, vision or balance problems, coordination problems or any other concerns as needed. Follow-up with your Dr. in a few days for recheck. You need to be very careful when transitioning from lying to sitting or sitting to standing as you may have some residual dizziness over the next couple days. ALLISON PUCKETT MD April 02, 2018 21:02
--- NOTE | 2018-04-02 21:24 | Diagnostic Imaging Report ---
PROCEDURE: CT head and CT cervical spine without contrast. TECHNIQUE: Multiple contiguous axial images were obtained through the brain and cervical spine without the use of intravenous contrast. Sagittal and coronal reformations through the cervical spine were then performed. INDICATION: Fell and hit back of head. FINDINGS: The ventricles are normal in size, shape and position. There is no acute parenchymal hemorrhage, edema or mass. There is no extra-axial mass or hemorrhage. There is no skull fracture. There is normal height and alignment of the cervical vertebral bodies. Disc spaces are well maintained. There is mild spondylosis. No fracture or other acute abnormality is seen. IMPRESSION: CT of the head and cervical spine shows no acute abnormality. Dictated by: Dictated on workstation # [id number]
[2018-04-02 22:00] VITALS: BP 173/85
== END 2018-04-02 22:00 | disposition home or self-care (01) ==
LOC: EDUNIT# 20:45 → ER 20:45
DX: S06.0X1A Concussion with loss of consciousness of 30 minutes or less, initial encounter (principal); S50.312A Abrasion of left elbow, initial encounter; R40.2142 Coma scale, eyes open, spontaneous, at arrival to emergency department; R40.2252 Coma scale, best verbal response, oriented, at arrival to emergency department; R40.2362 Coma scale, best motor response, obeys commands, at arrival to emergency department; J44.9 Chronic obstructive pulmonary disease, unspecified; I25.10 Atherosclerotic heart disease of native coronary artery without angina pectoris; I25.2 Old myocardial infarction; I10 Essential (primary) hypertension; E78.00 Pure hypercholesterolemia, unspecified; K21.9 Gastro-esophageal reflux disease without esophagitis; E03.9 Hypothyroidism, unspecified; E11.9 Type 2 diabetes mellitus without complications; Z87.01 Personal history of pneumonia (recurrent); Z88.2 Allergy status to sulfonamides; Z86.73 Personal history of transient ischemic attack (TIA), and cerebral infarction without residual deficits; Z82.49 Family history of ischemic heart disease and other diseases of the circulatory system; Z23 Encounter for immunization; Z87.19 Personal history of other diseases of the digestive system; Z88.8 Allergy status to other drugs, medicaments and biological substances; Z88.6 Allergy status to analgesic agent; Z79.82 Long term (current) use of aspirin; Z79.02 Long term (current) use of antithrombotics/antiplatelets; Z87.891 Personal history of nicotine dependence; Z95.5 Presence of coronary angioplasty implant and graft; Z90.710 Acquired absence of both cervix and uterus; Z95.1 Presence of aortocoronary bypass graft; W01.198A Fall on same level from slipping, tripping and stumbling with subsequent striking against other object, initial encounter
CPT/HCPCS: 70450; 72125; 90471; 90715

== ENCOUNTER 2018-07-19 12:38 | Observation (INO) | payer MEDICARE, MEDICAID ==
[~2018-07-19] VITALS: Ht 152.4 cm; Wt 71.1 kg
[~2018-07-19 12:38] MED LIST changes: -LOSA50TA36 PO; +LOSA50TA7 PO
--- OUTSIDE RECORDS SUMMARY | 2018-07-19 12:44 | XMS REPORT ---
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 Active 355048237287212 Problem 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 Active 6431117525595 Problem History of CVA (cerebrovascular accident) Z86.73 Active 628283835 Problem Overweight (BMI 25.0-29.9) E66.3 Active 618777770 Problem Hospital discharge follow-up Z09 Active 303270513 Problem Osteopenia of spine M85.88 Active 456956030 Problem Former smoker Z87.891 Active 4703582 Problem GERD (gastroesophageal reflux disease) K21.9 Active 261338033 Problem Angina at rest I20.8 Active 92572040 Problem Hypothyroid E03.9 Active 34650631 Problem Constipation K59.00 Active 47590622 Problem COPD (chronic obstructive pulmonary disease) J44.9 Active 95055835 Problem Peptic ulcer K27.9 Active 51624537 ALLERGIES No Information ENCOUNTERS Encounter Location Date Diagnosis [facility] [id number], [place] [address] Jul, [facility] [address] [facility] [id number] [address] May, [facility] [id number] [place] [address] 79212- 7347 Apr, [place] [address] [address] Apr, Type 2 diabetes mellitus without complication, without long- term current use of insulin E11.9 ; Hypothyroid E03.9 ; Hyperlipidemia LDL goal <100 E78.5 ; Overweight (BMI 25.0-29.9) E66.3 ; Vaginal candidiasis B37.3 ; COPD (chronic obstructive pulmonary disease) J44.9 ; CVA (cerebral vascular accident) I63.9 ; GERD (gastroesophageal reflux disease) K21.9 ; Angina at rest I20.8 and 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 [place] [address] [address] March, Hypothyroid E03.9 [place] [address] 07[address]- 9929 March, Hypercholesterolemia E78.00 [place] [address] [address]60- 6396 March, Hypothyroid E03.9 [place] [address] 09531- 6710 March, Hypercholesterolemia E78.00 [place] [id number] [place] [address] 90049- 1820 Feb, Hypercholesterolemia E78.00 [place] [id number] [place] [address] 85713- 3751 Feb, Type 2 diabetes mellitus without complication, without long- term current use of insulin E11.9 [place] [address] 7[address]23- 4832 03 Feb, 2018 Hypothyroid E03.9 [place] [id number] [place] [address] 29764- 6920 Jan, Hypothyroid E03.9 ; 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 ; Hospital discharge follow-up Z09 ; Type 2 diabetes mellitus without complication, without long-term current use of insulin E11.9 ; 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 and History of CVA (cerebrovascular accident) Z86.73 [place] [id number] [place] [address] 72992- 1294 Jan, [place] [id number] [place] [address] 48824- 9154 Jan, [place] [id number] [place] [address] 43974- 7339 Jan, Type 2 diabetes mellitus without complication, without long- term current use of insulin E11.9 [place] [id number] [place] [address] 35811- 8760 Dec, Hospital discharge follow-up Z09 ; COPD (chronic obstructive pulmonary disease) J44.9 ; Type 2 diabetes mellitus without complication, without long-term current use of insulin E11.9 ; Hypothyroid E03.9 and Vaginal discharge N89.8 [place] [id number] [place] [address] 99481- 3540 Dec, Hypothyroid E03.9 [place] [id number] [place] [address] 77268- 5001 Dec, Type 2 diabetes mellitus without complication, without long- term current use of insulin E11.9 [place] [id number] [place] [address] 11172- 7287 Nov, [place] [id number] [place] [address] 36021- 0074 Nov, [place] [id number] [place] [address] 81258- 1316 Nov, Pneumonia of right lower lobe due to infectious organism J18.1 ; Orthopnea R06.01 ; COPD with acute exacerbation J44.1 and Fatigue, unspecified type R53.83 [place] [id number] [place] [address] 14450- 4761 Nov, [place] [address], [place] [address] Nov, [place] [address], [place] [address] 0678 Oct, Pneumonia of right lower lobe due to infectious organism J18.1 [place] [address], [place] [address] 7853 Oct, Pneumonia of right lower lobe due to infectious organism J18.1 [place] [address] [place] [address] 90874- 4047 Oct, Pneumonia of right lower lobe due to infectious organism J18.1 [place] [address] [place] [address] 38229- 6819 Oct, COPD exacerbation J44.1 [place] [address] [place] [address] 81738- 6468 Oct, [place] [address] [place] [address] 84927- 2581 Oct, COPD exacerbation J44.1 [place] [id number] [place] [address] 62166- 2990 Oct, Encounter for immunization Z23 and COPD (chronic obstructive pulmonary disease) J44.9 [place] [address], [place] [address] 06 Oct, 2017 Medicare annual wellness visit, subsequent Z00.00 ; History of tobacco use Z87.891 ; Need for Zostavax administration Z23 ; Post-menopausal Z78.0 ; Screening for breast cancer Z12.31 ; Screening for colon cancer Z12.11 ; 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 and Encounter for immunization Z23 [place] [address] [place] [address] 69011- 0949 Sep, Type 2 diabetes mellitus without complication, without long- term current use of insulin E11.9 [place] [address] [place] [address] 22629- 3670 Sep, Type 2 diabetes mellitus without complication, without long- term current use of insulin E11.9 ; COPD (chronic obstructive pulmonary disease ) J44.9 ; Hypothyroid E03.9 ; GERD (gastroesophageal reflux disease) K21.9 ; CVA (cerebral vascular accident) I63.9 ; Hyperlipidemia LDL goal <100 E78.5 ; Coronary artery disease of [place] heart with stable angina pectoris, unspecified vessel or lesion type I25.118 and 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 [place] [address] 14654- 4724 Aug, Type 2 diabetes mellitus without complication, without long- term current use of insulin E11.9 [place] [id number] [place] [address] 70452- 1339 Aug, Hypothyroid E03.9 [place] [id number] [place] [address] 52255- 6916 Aug, Type 2 diabetes mellitus without complication, without long- term current use of insulin E11.9 ; COPD (chronic obstructive pulmonary disease ) J44.9 ; Hypothyroid E03.9 ; GERD (gastroesophageal reflux disease) K21.9 ; CVA (cerebral vascular accident) I63.9 ; Hyperlipidemia LDL goal <100 E78.5 ; Coronary artery disease of [place] heart with stable angina pectoris, unspecified vessel or lesion type I25.118 and Encounter for immunization Z23 [place] [id number] [place] [address] 69384- 4449 Jul, Hypothyroid E03.9 and Hypercholesterolemia E78.00 [place] [id number] [place] [address] 59417- 1453 Jul, Hypothyroid E03.9 ; Diabetes mellitus E11.9 and Hypercholesterolemia E78.0 [place] [id number] [place] [address] 01004- 2177 Jul, Hypothyroid E03.9 ; Diabetes mellitus E11.9 and Hypercholesterolemia E78.0 [place] [id number] [place] [address] 77872- 0938 May, CVA (cerebral vascular accident) I63.9 and Dizziness R42 [id number] [place] [address] 18855- 2262 May, Dehydration E86.0 ; CVA (cerebral vascular accident) I63.9 ; COPD (chronic obstructive pulmonary disease) J44.9 and Dizziness R42 [place] [address] 89807- 3462 March, Diabetes mellitus E11.9 ; Angina at rest I20.8 ; COPD ( chronic obstructive pulmonary disease) J44.9 ; GERD (gastroesophageal reflux disease) K21.9 ; Hypercholesterolemia E78.00 ; CVA (cerebral vascular accident) I63.9 and Hypothyroid E03.9 [place] [address] 32915- 0729 Jan, Hypothyroid E03.9 and Diabetes mellitus E11.9 [place] [address] 41169- 6467 Jan, [place] [address] 87711- 2261 Jan, Diabetes mellitus E11.9 [place] [address] 65740- 5032 Jan, [place] [id number] [place] [address] 68433- 1642 Dec, Diabetes mellitus E11.9 ; CVA (cerebral vascular accident) I63.9 ; COPD (chronic obstructive pulmonary disease) J44.9 ; Hypothyroid E03.9 ; GERD (gastroesophageal reflux disease) K21.9 and Hypercholesterolemia E78.00 [place] [id number] [place] [address] 17942- 9781 Nov, Diabetes mellitus E11.9 [place] [address] 14751- 2170 Nov, [place] [address] 49601- 4817 Nov, [facility] [address], [place] [address]- 1032 Nov, [facility] [id number] [place] [address] 35132- 2961 Nov, Diabetes mellitus E11.9 [facility] [id number] [place] [address] 67406- 8571 Oct, Hypothyroid E03.9 [facility] [id number] [place] [address] 95840- 8705 Oct, Diabetes mellitus E11.9 [facility] [id number] [place] [address] 80667- 8764 Oct, COPD (chronic obstructive pulmonary disease) J44.9 [facility] [id number] [place] [address] 26502- 7401 Oct, [facility] [id number] [place] [address] 19237- 3365 Sep, Diabetes mellitus E11.9 ; Angina at rest I20.8 ; Hypercholesterolemia E78.0 ; COPD (chronic obstructive pulmonary disease) J44.9 ; GERD (gastroesophageal reflux disease) K21.9 ; Dysuria R30.0 ; Acquired hypothyroidism E03.9 ; Encounter for immunization Z23 and Acute cystitis without hematuria N30.00 [facility] [address], [place] [address]- 2146 Sep, Diabetes mellitus E11.9 [facility] [address], [place] [address] Aug, [facility] [id number] [place] [address] 01450- 6794 Aug, Diabetes mellitus E11.9 [facility] [address], [place] [address]- 1891 Jun, Angina at rest I20.8 ; CVA (cerebral vascular accident) I63.9 ; Diabetes mellitus E11.9 ; Hypercholesterolemia E78.0 ; COPD (chronic obstructive pulmonary disease) J44.9 ; GERD (gastroesophageal reflux disease) K21.9 ; Peptic ulcer K27.9 and Hypothyroid E03.9 [facility] [id number] [place] [address] 87376- 2172 Jun, [facility] [id number] [place] [address] 22593- 8110 May, Diabetes mellitus E11.9 ; CVA (cerebral vascular accident) I63.9 ; COPD (chronic obstructive pulmonary disease) J44.9 and Angina at rest I20.8 [place] [id number] [place] [address] 11756- 1915 May, [place] [id number] [place] [address] 17582- 1783 May, Diabetes mellitus E11.9 ; Hypothyroid E03.9 ; Angina at rest I20.8 ; CVA (cerebral vascular accident) I63.9 ; COPD (chronic obstructive pulmonary disease) J44.9 ; GERD (gastroesophageal reflux disease) K21.9 and Hypercholesterolemia E78.0 [place] [id number] [place] [address] 56811- 8317 Apr, Hypercholesterolemia E78.0 [facility] [id number] [place] [address] 57695- 1184 Apr, [facility] [id number] [place] [address] 44555- 1762 March, Diabetes mellitus E11.9 ; Hypothyroid E03.9 ; Hypercholesterolemia E78.0 ; COPD (chronic obstructive pulmonary disease) J44.9 ; GERD (gastroesophageal reflux disease) K21.9 ; Constipation K59.00 ; CVA ( cerebral vascular accident) I63.9 and Angina at rest I20.8 [facility] [id number] [place] [address] 14338- 3014 March, [facility] [id number] [place] [address] 46178- 2270 Feb, [facility] [id number] [place] [address] 92002- 4959 Feb, [facility] [address] 98258- 2930 Feb, [facility] [id number] [place] [address] 78147- 9100 Jan, Diabetes mellitus E11.9 ; Hypercholesterolemia E78.0 ; CVA ( cerebral vascular accident) I63.9 ; GERD (gastroesophageal reflux disease) K21.9 ; Hypothyroid E03.9 and Angina at rest I20.8 [place] [id number] [place] [address] 52737- 1002 Dec, Diabetes mellitus E11.9 ; Hypothyroid E03.9 ; Angina at rest I20.8 ; CVA (cerebral vascular accident) I63.9 ; Hypercholesterolemia E78.0 ; COPD (chronic obstructive pulmonary disease) J44.9 ; GERD ( gastroesophageal reflux disease) K21.9 and Dysuria R30.0 [place] [id number] [place] [address] 28393- 8510 Nov, [place] [id number] [place] [address] 92484- 5537 Nov, Hypothyroid E03.9 [facility] [id number] [place] [address] 75585- 5933 Nov, Hypothyroid E03.9 ; Angina at rest I20.8 ; CVA (cerebral vascular accident) I63.9 ; Hypercholesterolemia E78.0 ; COPD (chronic obstructive pulmonary disease) J44.9 ; GERD (gastroesophageal reflux disease) K21.9 and Diabetes E11.9 [facility] [id number] [place] [address] 62786 -2319 Oct, Upper respiratory symptom R09.89 [facility] [id number] [place] [address] 58809- 8509 Oct, [facility] [address] 24688- 1793 Oct, [facility] [id number] [place] [address] 05341- 0709 Oct, [facility] [id number] [place] [address] 803405- 2534 Aug, Diabetes mellitus 250.00 ; Encounter for immunization Z23 ; Hypothyroid E03.9 ; Angina at rest I20.8 ; CVA (cerebral vascular accident) I63.9 ; Hypercholesterolemia E78.0 ; COPD (chronic obstructive pulmonary disease ) J44.9 and GERD (gastroesophageal reflux disease) K21.9 [facility] [id number] [place] [address] 55674- 4631 Jul, [facility] [id number] [place] [address] 14014- 0329 Jun, [facility] [id number] [place] [address] 29807- 7518 Jun, [facility] [id number] [place] [address] 68580- 9074 May, [facility] [id number] [place] [address] 60410- 5907 May, Diabetes mellitus 250.00 ; Hypothyroidism 244.9 ; Angina at rest 413.9 ; CVA (cerebral infarction) 434.91 ; Hypercholesterolemia 272.0 ; COPD (chronic obstructive pulmonary disease) 496 and GERD (gastroesophageal reflux disease) 530.81 [facility] [id number] [place] [address] 70174- 4523 Oct, [facility] [id number] [place] [address] 31251- 7727 Oct, [facility] [id number] [place] [address] 89444- 1401 Oct, [facility] [id number] [place] [address] 25845- 4369 Oct, [facility] [id number] [place] [address] 21945- 2715 Sep, [facility] [address], [place] [address]- 0778 Aug, [facility] [address], [place] [address]- 1513 Aug, [facility] [address], [place] [address]- 6972 Aug, [facility] [address], [place] [address]- 2407 Jul, [facility] [address] [place] [address] 55956- 7037 Jan, [facility] [address] [place] [address] 97517- 7886 Oct, [facility] [id number] [place] [address] 86368- 8261 Oct, [facility] [address], [place] [address]- 4560 Sep, [facility] [address], [place] [address]- 6866 Apr, [facility] [address], [place] [address]- 3906 10 Dec, 2008 IMMUNIZATIONS No Known Immunizations SOCIAL HISTORY Never Assessed REASON FOR VISIT Refill request PLAN OF CARE VITAL SIGNS MEDICATIONS Medication Instructions Dosage Frequency Start Date End Date Duration Status Janumet 50-1000 mg Orally Twice a day 1 tablet with meals 12h 90 days Active Farxiga 5 mg TAKE ONE TABLET BY MOUTH DAILY 90 days Active RESULTS No Results PROCEDURES No [...] lobe Pneumonia 02/24/16 Hospitalization History Chest Pain--[facility] 05/19/16 Hospitalization History Chest pain--[facility] 06/18/16 Hospitalization History Influenza & COPD exacerbation 12/21 Hospitalization History Cardiac Monitoring 01/2018 Hospitalization History Via [facility], tripped and hit head 04/2018
--- OUTSIDE RECORDS SUMMARY | 2018-07-19 12:44 | XMS REPORT ---
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 Active 436326824186932 Problem 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 Active 4737005127609 Problem History of CVA (cerebrovascular accident) Z86.73 Active 831392859 Problem Overweight (BMI 25.0-29.9) E66.3 Active 293898858 Problem Hospital discharge follow-up Z09 Active 375773639 Problem Osteopenia of spine M85.88 Active 306265611 Problem Former smoker Z87.891 Active 5290587 Problem GERD (gastroesophageal reflux disease) K21.9 Active 913518619 Problem Angina at rest I20.8 Active 96590684 Problem Hypothyroid E03.9 Active 40499431 Problem Constipation K59.00 Active 84140086 Problem COPD (chronic obstructive pulmonary disease) J44.9 Active 96090650 Problem Peptic ulcer K27.9 Active 18777590 ALLERGIES No Information ENCOUNTERS Encounter Location Date Diagnosis [facility] [id number], [place] [address] Jul, [facility] [address] [facility] [id number] [address] Jun, [facility] [id number] [place] [address] 11453- 9786 Jun, [facility] [id number] [place] [address] 04719- 8364 May, [facility] [id number] [place] [address] 30736- 5373 Apr, [place] [id number] [place] [address] 96026- 8678 Apr, Type 2 diabetes mellitus without complication, without long- term current use of insulin E11.9 ; Hypothyroid E03.9 ; Hyperlipidemia LDL goal <100 E78.5 ; Overweight (BMI 25.0-29.9) E66.3 ; Vaginal candidiasis B37.3 ; COPD (chronic obstructive pulmonary disease) J44.9 ; CVA (cerebral vascular accident) I63.9 ; GERD (gastroesophageal reflux disease) K21.9 ; Angina at rest I20.8 and 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 [place] [id number] [place] [address] 33499- 0880 March, Hypothyroid E03.9 [facility] [facility] [id number] [place] [address] 41405- 9772 March, Hypercholesterolemia E78.00 [place] [id number] [place] [address] 36627- 7092 March, Hypothyroid E03.9 [place] [id number] [place] [address] 06088- 2328 March, Hypercholesterolemia E78.00 [place] [id number] [place] [address] 17199- 0985 Feb, Hypercholesterolemia E78.00 [place] [id number] [place] [address] 89361- 4508 Feb, Type 2 diabetes mellitus without complication, without long- term current use of insulin E11.9 [place] [id number] [place] [address] 83461- 3938 Feb, Hypothyroid E03.9 [place] [id number] [place] [address] 72852- 5930 14 Jan, 2018 Hypothyroid E03.9 ; 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 ; Hospital discharge follow-up Z09 ; Type 2 diabetes mellitus without complication, without long-term current use of insulin E11.9 ; 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 and History of CVA (cerebrovascular accident) Z86.73 [place] [id number] [place] [address] 15169- 9652 Jan, [place] [id number] [place] [address] 12826- 3489 Jan, [place] [facility] [id number] [place] [address] 05897- 7895 Jan, Type 2 diabetes mellitus without complication, without long- term current use of insulin E11.9 [place] [id number] [place] [address] 81968- 3691 Dec, Hospital discharge follow-up Z09 ; COPD (chronic obstructive pulmonary disease) J44.9 ; Type 2 diabetes mellitus without complication, without long-term current use of insulin E11.9 ; Hypothyroid E03.9 and Vaginal discharge N89.8 [place] [id number] [place] [address] 89392- 9715 Dec, Hypothyroid E03.9 [place] [id number] [place] [address] 26369- 2793 Dec, Type 2 diabetes mellitus without complication, without long- term current use of insulin E11.9 [place] [id number] [place] [address] 23808- 6723 Nov, [place] [id number] [place] [address] 20094- 0821 Nov, [place] [id number] [place] [address] 42166- 9548 Nov, Pneumonia of right lower lobe due to infectious organism J18.1 ; Orthopnea R06.01 ; COPD with acute exacerbation J44.1 and Fatigue, unspecified type R53.83 [place] [address], [place] [address] Nov, [place] [address], [place] [address] Nov, [place] [id number] [place] [address] 80777- 3373 Oct, Pneumonia of right lower lobe due to infectious organism J18.1 [place] [id number] [place] [address] 00888- 2835 Oct, Pneumonia of right lower lobe due to infectious organism J18.1 [facility] [facility] [id number] [address] Oct, Pneumonia of right lower lobe due to infectious organism J18.1 [place] [address], [place] [address] 45[address] Oct, COPD exacerbation J44.1 [place] [address], [place] [address] Oct, [place] [address], [place] [address] 8[address] Oct, COPD exacerbation J44.1 [place] [address], [place] [address] 8[address] Oct, Encounter for immunization Z23 and COPD (chronic obstructive pulmonary disease) J44.9 [place] [address], [place] [address] 06 Oct, 2017 Medicare annual wellness visit, subsequent Z00.00 ; History of tobacco use Z87.891 ; Need for Zostavax administration Z23 ; Post-menopausal Z78.0 ; Screening for breast cancer Z12.31 ; Screening for colon cancer Z12.11 ; 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 and Encounter for immunization Z23 [place] [address], [place] [address] Sep, Type 2 diabetes mellitus without complication, without long- term current use of insulin E11.9 [place] [id number] [place] [address] 14435- 2711 Sep, Type 2 diabetes mellitus without complication, without long- term current use of insulin E11.9 ; COPD (chronic obstructive pulmonary disease ) J44.9 ; Hypothyroid E03.9 ; GERD (gastroesophageal reflux disease) K21.9 ; CVA (cerebral vascular accident) I63.9 ; Hyperlipidemia LDL goal <100 E78.5 ; Coronary artery disease of [place] heart with stable angina pectoris, unspecified vessel or lesion type I25.118 and 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 [place] [id number] [place] [address] 76195- 6107 Aug, Type 2 diabetes mellitus without complication, without long- term current use of insulin E11.9 [place] [id number] [place] [address] 06718- 7218 Aug, Hypothyroid E03.9 [id number] [place] [address] 09961- 6403 Aug, Type 2 diabetes mellitus without complication, without long- term current use of insulin E11.9 ; COPD (chronic obstructive pulmonary disease ) J44.9 ; Hypothyroid E03.9 ; GERD (gastroesophageal reflux disease) K21.9 ; CVA (cerebral vascular accident) I63.9 ; Hyperlipidemia LDL goal <100 E78.5 ; Coronary artery disease of [place] heart with stable angina pectoris, unspecified vessel or lesion type I25.118 and Encounter for immunization Z23 [id number] [place] [address] 81494- 4493 Jul, Hypothyroid E03.9 and Hypercholesterolemia E78.00 [id number] [place] [address] 36604- 8201 Jul, Hypothyroid E03.9 ; Diabetes mellitus E11.9 and Hypercholesterolemia E78.0 [address] [place] [address] 405[address] Jul, Hypothyroid E03.9 ; Diabetes mellitus E11.9 and Hypercholesterolemia E78.0 [place] [address] [address]- [address] May, CVA (cerebral vascular accident) I63.9 and Dizziness R42 [address] [address] 17571- 3265 May, Dehydration E86.0 ; CVA (cerebral vascular accident) I63.9 ; COPD (chronic obstructive pulmonary disease) J44.9 and Dizziness R42 [place] [address] 37628- 8210 March, Diabetes mellitus E11.9 ; Angina at rest I20.8 ; COPD ( chronic obstructive pulmonary disease) J44.9 ; GERD (gastroesophageal reflux disease) K21.9 ; Hypercholesterolemia E78.00 ; CVA (cerebral vascular accident) I63.9 and Hypothyroid E03.9 [address] [address] 97732- 7774 Jan, Hypothyroid E03.9 and Diabetes mellitus E11.9 [address] [address] 96538- 1411 Jan, [place] [id number] [place] [address] 57196- 5196 Jan, Diabetes mellitus E11.9 [place] [id number] [place] [address] 35465- 3796 Jan, [place] [id number] [place] [address] 46503- 6012 Dec, Diabetes mellitus E11.9 ; CVA (cerebral vascular accident) I63.9 ; COPD (chronic obstructive pulmonary disease) J44.9 ; Hypothyroid E03.9 ; GERD (gastroesophageal reflux disease) K21.9 and Hypercholesterolemia E78.00 [address] 53960- 1397 Nov, Diabetes mellitus E11.9 [facility] [address], [place] [address]- 9436 Nov, [facility] [id number] [place] [address] 17392- 7049 Nov, [facility] [id number] [place] [address] 51447- 3633 Nov, [facility] [id number] [place] [address] 98793- 6219 Nov, Diabetes mellitus E11.9 [facility] [id number] [place] [address] 75290- 5793 Oct, Hypothyroid E03.9 [facility] [id number] [place] [address] 15488- 3104 Oct, Diabetes mellitus E11.9 [facility] [id number] [place] [address] 78254- 7781 Oct, COPD (chronic obstructive pulmonary disease) J44.9 [facility] [id number] [place] [address] 09175- 4851 Oct, [facility] [id number] [place] [address] 03313- 7698 Sep, Diabetes mellitus E11.9 ; Angina at rest I20.8 ; Hypercholesterolemia E78.0 ; COPD (chronic obstructive pulmonary disease) J44.9 ; GERD (gastroesophageal reflux disease) K21.9 ; Dysuria R30.0 ; Acquired hypothyroidism E03.9 ; Encounter for immunization Z23 and Acute cystitis without hematuria N30.00 [facility] [id number] [place] [address] 33882- 1567 Sep, Diabetes mellitus E11.9 [facility] [id number] [place] [address] 64237 -5997 Aug, [facility] [id number] [place] [address] 70811- 6961 Aug, Diabetes mellitus E11.9 [address] [address], [place] [address]- 7590 Jun, Angina at rest I20.8 ; CVA (cerebral vascular accident) I63.9 ; Diabetes mellitus E11.9 ; Hypercholesterolemia E78.0 ; COPD (chronic obstructive pulmonary disease) J44.9 ; GERD (gastroesophageal reflux disease) K21.9 ; Peptic ulcer K27.9 and Hypothyroid E03.9 [place] [id number] [place] [address] 93279- 4500 Jun, [place] [id number] [place] [address] 57045- 4645 May, Diabetes mellitus E11.9 ; CVA (cerebral vascular accident) I63.9 ; COPD (chronic obstructive pulmonary disease) J44.9 and Angina at rest I20.8 [place] [id number], [place] [address]- 0063 May, [place] [id number] [place] [address] 01728- 8143 May, Diabetes mellitus E11.9 ; Hypothyroid E03.9 ; Angina at rest I20.8 ; CVA (cerebral vascular accident) I63.9 ; COPD (chronic obstructive pulmonary disease) J44.9 ; GERD (gastroesophageal reflux disease) K21.9 and Hypercholesterolemia E78.0 [address], [place] [address]- 0851 Apr, Hypercholesterolemia E78.0 [place] [id number] [place] [address] 21133- 8400 Apr, [place] [id number] [place] [address] 65113- 5278 March, Diabetes mellitus E11.9 ; Hypothyroid E03.9 ; Hypercholesterolemia E78.0 ; COPD (chronic obstructive pulmonary disease) J44.9 ; GERD (gastroesophageal reflux disease) K21.9 ; Constipation K59.00 ; CVA ( cerebral vascular accident) I63.9 and Angina at rest I20.8 [place] [address], [place] [address]- 7247 March, [facility] [id number] [place] [address] 04796- 6772 Feb, [facility] [id number] [place] [address] 16387- 1363 Feb, [facility] [id number] [place] [address] 31453- 6642 Feb, [place] [id number] [place] [address] 20783- 7564 Jan, Diabetes mellitus E11.9 ; Hypercholesterolemia E78.0 ; CVA ( cerebral vascular accident) I63.9 ; GERD (gastroesophageal reflux disease) K21.9 ; Hypothyroid E03.9 and Angina at rest I20.8 [place] [id number] [place] [address] 14797- 1728 Dec, Diabetes mellitus E11.9 ; Hypothyroid E03.9 ; Angina at rest I20.8 ; CVA (cerebral vascular accident) I63.9 ; Hypercholesterolemia E78.0 ; COPD (chronic obstructive pulmonary disease) J44.9 ; GERD ( gastroesophageal reflux disease) K21.9 and Dysuria R30.0 [address] [id number] [place] [address] 80166- 3851 Nov, [place] [id number] [place] [address] 90489- 6372 Nov, Hypothyroid E03.9 [place] [id number] [place] [address] 73071- 7369 Nov, Hypothyroid E03.9 ; Angina at rest I20.8 ; CVA (cerebral vascular accident) I63.9 ; Hypercholesterolemia E78.0 ; COPD (chronic obstructive pulmonary disease) J44.9 ; GERD (gastroesophageal reflux disease) K21.9 and Diabetes E11.9 [facility] [id number] [place] [address] 21956 -0841 Oct, Upper respiratory symptom R09.89 [facility] [id number] [place] [address] 80296- 4048 Oct, [facility] [id number] [place] [address] 34817- 6153 Oct, [facility] [id number] [place] [address] 71565- 9689 Oct, [facility] [address] 07044- 5559 Aug, Diabetes mellitus 250.00 ; Encounter for immunization Z23 ; Hypothyroid E03.9 ; Angina at rest I20.8 ; CVA (cerebral vascular accident) I63.9 ; Hypercholesterolemia E78.0 ; COPD (chronic obstructive pulmonary disease ) J44.9 and GERD (gastroesophageal reflux disease) K21.9 [address] 60955- 2885 Jul, [facility] [address] 91410- 9302 Jun, [facility] [address] 14270- 7611 Jun, [facility] [id number] [place] [address] 29345- 8435 May, [facility] [id number] [place] [address] 13250- 1262 May, Diabetes mellitus 250.00 ; Hypothyroidism 244.9 ; Angina at rest 413.9 ; CVA (cerebral infarction) 434.91 ; Hypercholesterolemia 272.0 ; COPD (chronic obstructive pulmonary disease) 496 and GERD (gastroesophageal reflux disease) 530.81 [facility] [id number] [place] [address] 86176- 9813 Oct, [facility] [id number] [place] [address] 01496- 0507 Oct, [facility] [address] 45998- 6065 Oct, [facility] [address], [place] [address]- 6325 Oct, [facility] [address], [place] [address]- 9456 Sep, [facility] [address], [place] [address]- 5764 Aug, [facility] [id number] [place] [address] 22178- 3273 Aug, [facility] [id number] [place] [address] 12795- 7346 Aug, [facility] [id number] [place] [address] 32006- 5068 Jul, [facility] [id number] [place] [address] 09121- 6408 Jan, [facility] [address], [place] [address]- 7018 Oct, [facility] [id number] [place] [address] 14413- 5254 Oct, [facility] [address], [place] [address]- 5525 Sep, [facility] [address], [place] [address]- 2418 Apr, [facility] [address] [address]- 1168 Dec, IMMUNIZATIONS No Known Immunizations SOCIAL HISTORY Never Assessed REASON FOR VISIT Refill request PLAN OF CARE VITAL SIGNS MEDICATIONS Medication Instructions Dosage Frequency Start Date End Date Duration Status Fenofibrate 160 MG Orally Once a day 1 tablet with a meal 24h Jan, 30 days Active RESULTS No Results PROCEDURES [...] History CABG x3 2006 Hospitalization History Gallbladder 2007 Hospitalization History stent 2006 Hospitalization History Right upper lobe Pneumonia 02/24/16 Hospitalization History Chest Pain--[facility] 05/19/16 Hospitalization History Chest pain--[facility] 06/18/16 Hospitalization History Influenza & COPD exacerbation 12/21 Hospitalization History Cardiac Monitoring 01/2018 Hospitalization History Via [facility], tripped and hit head 04/2018
--- OUTSIDE RECORDS SUMMARY | 2018-07-19 12:44 | XMS REPORT ---
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 Active 685941194465 Problem Type 2 diabetes mellitus without complication, without long-term current use of insulin E11.9 Active 198462311 Problem CVA (cerebral vascular accident) I63.9 Active 204015796 Problem 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 Active [id number] Problem 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 Active 1952399736700 Problem History of CVA (cerebrovascular accident) Z86.73 Active 771262533 Problem Overweight (BMI 25.0-29.9) E66.3 Active 839039010 Problem Hospital discharge follow-up Z09 Active 869234817 Problem Osteopenia of spine M85.88 Active 621243184 Problem Former smoker Z87.891 Active 5769661 Problem GERD (gastroesophageal reflux disease) K21.9 Active 479247997 Problem Angina at rest I20.8 Active 49977329 Problem Hypothyroid E03.9 Active 15309797 Problem Constipation K59.00 Active 13910388 Problem COPD (chronic obstructive pulmonary disease) J44.9 Active 30358019 Problem Peptic ulcer K27.9 Active 45645161 ALLERGIES No Information ENCOUNTERS Encounter Location Date Diagnosis [facility] [place] [id number] [address] Jul, [facility] [place] [address] [facility] [id number] [address] Jun, [facility] [place] [address] [address] Jun, [facility] [place] [id number] [place] [address] 84181- 7436 Jun, [facility] [place] [id number] [place] [address] 27871- 6368 May, [facility] [place] [id number] [place] [address] 75397- 7978 Apr, [facility] [place] [id number] [place] [address] 10947- 0921 Apr, Type 2 diabetes mellitus without complication, without long- term current use of insulin E11.9 ; Hypothyroid E03.9 ; Hyperlipidemia LDL goal <100 E78.5 ; Overweight (BMI 25.0-29.9) E66.3 ; Vaginal candidiasis B37.3 ; COPD (chronic obstructive pulmonary disease) J44.9 ; CVA (cerebral vascular accident) I63.9 ; GERD (gastroesophageal reflux disease) K21.9 ; Angina at rest I20.8 and 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 [place] [id number] [place] [address] 45929- 4570 March, Hypothyroid E03.9 [facility] [place] [id number] [place] [address] 07480- 1508 March, Hypercholesterolemia E78.00 [facility] [place] [id number] [place] [address] 52363- 5719 March, Hypothyroid E03.9 [facility] [place] [id number] [place] [address] 84024- 0452 March, Hypercholesterolemia E78.00 [facility] [place] [id number] [place] [address] 70245- 8006 Feb, Hypercholesterolemia E78.00 [facility] [place] [id number] [place] [address] 78559- 0413 Feb, Type 2 diabetes mellitus without complication, without long- term current use of insulin E11.9 [place] [address] [address] 0037 Feb, Hypothyroid E03.9 [place] [id number] [place] [address] 51994- 0717 Jan, Hypothyroid E03.9 ; 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 ; Hospital discharge follow-up Z09 ; Type 2 diabetes mellitus without complication, without long-term current use of insulin E11.9 ; 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 and History of CVA (cerebrovascular accident) Z86.73 [place] [id number] [place] [address] 77230- 2086 Jan, [place] [id number] [place] [address] 92107- 2397 Jan, [place] [id number] [place] [address] 27864- 9306 Jan, Type 2 diabetes mellitus without complication, without long- term current use of insulin E11.9 [place] [address], [place] [address] 89[address] Dec, Hospital discharge follow-up Z09 ; COPD (chronic obstructive pulmonary disease) J44.9 ; Type 2 diabetes mellitus without complication, without long-term current use of insulin E11.9 ; Hypothyroid E03.9 and Vaginal discharge N89.8 [place] [address], [place] [address] 1776 Dec, Hypothyroid E03.9 [place] [address], [place] [address] 0307 Dec, Type 2 diabetes mellitus without complication, without long- term current use of insulin E11.9 [facility] [address] [address] 9492 Nov, [place] [address], [place] [address] 0052 Nov, [place] [address], [place] [address] 8333 Nov, Pneumonia of right lower lobe due to infectious organism J18.1 ; Orthopnea R06.01 ; COPD with acute exacerbation J44.1 and Fatigue, unspecified type R53.83 [place] [address], [place] [address] 4729 Nov, [place] [address] [address]- 7226 Nov, [place] [address], [place] [address] 0915 Oct, Pneumonia of right lower lobe due to infectious organism J18.1 [place] [address], [place] [address] 2528 Oct, Pneumonia of right lower lobe due to infectious organism J18.1 [place] [address], [place] [address]- 6838 Oct, Pneumonia of right lower lobe due to infectious organism J18.1 [place] [address], [place] [address]- 7742 Oct, COPD exacerbation J44.1 [place] [address], [place] [address]- 4831 Oct, [place] [address], [place] [address] 8229 Oct, COPD exacerbation J44.1 [address] [address], [place] [address] 7857 Oct, Encounter for immunization Z23 and COPD (chronic obstructive pulmonary disease) J44.9 [place] [id number], [place] [address]85 06 Oct, 2017 Medicare annual wellness visit, subsequent Z00.00 ; History of tobacco use Z87.891 ; Need for Zostavax administration Z23 ; Post-menopausal Z78.0 ; Screening for breast cancer Z12.31 ; Screening for colon cancer Z12.11 ; 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 and Encounter for immunization Z23 [place] [id number] [place] [address] 26349- 6631 Sep, Type 2 diabetes mellitus without complication, without long- term current use of insulin E11.9 [facility] [id number] [place] [address] 99995- 9075 Sep, Type 2 diabetes mellitus without complication, without long- term current use of insulin E11.9 ; COPD (chronic obstructive pulmonary disease ) J44.9 ; Hypothyroid E03.9 ; GERD (gastroesophageal reflux disease) K21.9 ; CVA (cerebral vascular accident) I63.9 ; Hyperlipidemia LDL goal <100 E78.5 ; Coronary artery disease of [place] heart with stable angina pectoris, unspecified vessel or lesion type I25.118 and 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 [place] [id number] [place] [address] 12246- 5979 Aug, Type 2 diabetes mellitus without complication, without long- term current use of insulin E11.9 [place] [id number] [place] [address] 33246- 5511 Aug, Hypothyroid E03.9 [place] [id number] [place] [address] 28298- 3264 Aug, Type 2 diabetes mellitus without complication, without long- term current use of insulin E11.9 ; COPD (chronic obstructive pulmonary disease ) J44.9 ; Hypothyroid E03.9 ; GERD (gastroesophageal reflux disease) K21.9 ; CVA (cerebral vascular accident) I63.9 ; Hyperlipidemia LDL goal <100 E78.5 ; Coronary artery disease of [place] heart with stable angina pectoris, unspecified vessel or lesion type I25.118 and Encounter for immunization Z23 [place] [id number] [place] [address] 80082- 4041 Jul, Hypothyroid E03.9 and Hypercholesterolemia E78.00 [place] [address] 86557- 0563 Jul, Hypothyroid E03.9 ; Diabetes mellitus E11.9 and Hypercholesterolemia E78.0 [place] [id number] [place] [address] 84730- 5199 Jul, Hypothyroid E03.9 ; Diabetes mellitus E11.9 and Hypercholesterolemia E78.0 [place] [id number] [place] [address] 27157- 9374 May, CVA (cerebral vascular accident) I63.9 and Dizziness R42 [place] [address] 31925- 5667 May, Dehydration E86.0 ; CVA (cerebral vascular accident) I63.9 ; COPD (chronic obstructive pulmonary disease) J44.9 and Dizziness R42 [place] [id number] [place] [address] 03946- 2271 March, Diabetes mellitus E11.9 ; Angina at rest I20.8 ; COPD ( chronic obstructive pulmonary disease) J44.9 ; GERD (gastroesophageal reflux disease) K21.9 ; Hypercholesterolemia E78.00 ; CVA (cerebral vascular accident) I63.9 and Hypothyroid E03.9 [place] [id number] [place] [address] 15639- 0175 Jan, Hypothyroid E03.9 and Diabetes mellitus E11.9 [place] [id number] [place] [address] 34526- 7327 Jan, [place] [id number] [place] [address] 07920- 5211 Jan, Diabetes mellitus E11.9 [place] [id number] [place] [address] 00312- 7005 Jan, [place] [id number] [place] [address] 70638- 5339 Dec, Diabetes mellitus E11.9 ; CVA (cerebral vascular accident) I63.9 ; COPD (chronic obstructive pulmonary disease) J44.9 ; Hypothyroid E03.9 ; GERD (gastroesophageal reflux disease) K21.9 and Hypercholesterolemia E78.00 [facility] [place] [id number] [place] [address] 45488- 6428 Nov, Diabetes mellitus E11.9 [facility] [id number] [place] [address] 55492- 6939 Nov, [facility] [id number] [place] [address] 34802- 3710 Nov, [facility] [place] [address] 56912- 6889 Nov, [facility] [id number] [place] [address] 15241- 7664 Nov, Diabetes mellitus E11.9 [facility] [place] [id number] [place] [address] 03842- 2678 Oct, Hypothyroid E03.9 [facility] [place] [address] 62743- 4674 Oct, Diabetes mellitus E11.9 [facility] [place] [id number] [place] [address] 02921- 2783 Oct, COPD (chronic obstructive pulmonary disease) J44.9 [facility] [id number] [place] [address] 84609- 6143 Oct, [facility] [id number] [place] [address] 35244- 5145 Sep, Diabetes mellitus E11.9 ; Angina at rest I20.8 ; Hypercholesterolemia E78.0 ; COPD (chronic obstructive pulmonary disease) J44.9 ; GERD (gastroesophageal reflux disease) K21.9 ; Dysuria R30.0 ; Acquired hypothyroidism E03.9 ; Encounter for immunization Z23 and Acute cystitis without hematuria N30.00 [facility] [place] [id number] [place] [address] 22968- 5307 Sep, Diabetes mellitus E11.9 [facility] [id number] [place] [address] 30081 -9031 Aug, [place] [address], [place] [address]- 5842 Aug, Diabetes mellitus E11.9 [place] [id number] [place] [address] 70260- 5955 Jun, Angina at rest I20.8 ; CVA (cerebral vascular accident) I63.9 ; Diabetes mellitus E11.9 ; Hypercholesterolemia E78.0 ; COPD (chronic obstructive pulmonary disease) J44.9 ; GERD (gastroesophageal reflux disease) K21.9 ; Peptic ulcer K27.9 and Hypothyroid E03.9 [place] [id number] [place] [address] 99352- 5013 Jun, [place] [id number] [place] [address] 71454- 2527 May, Diabetes mellitus E11.9 ; CVA (cerebral vascular accident) I63.9 ; COPD (chronic obstructive pulmonary disease) J44.9 and Angina at rest I20.8 [place] [address], [place] [address]- 0786 May, [place] [id number] [place] [address] 85443- 1643 May, Diabetes mellitus E11.9 ; Hypothyroid E03.9 ; Angina at rest I20.8 ; CVA (cerebral vascular accident) I63.9 ; COPD (chronic obstructive pulmonary disease) J44.9 ; GERD (gastroesophageal reflux disease) K21.9 and Hypercholesterolemia E78.0 [place] [address], [place] [address]- 9851 Apr, Hypercholesterolemia E78.0 [place] [address], [place] [address]- 8470 Apr, [place] [id number] [place] [address] 32540- 2943 March, Diabetes mellitus E11.9 ; Hypothyroid E03.9 ; Hypercholesterolemia E78.0 ; COPD (chronic obstructive pulmonary disease) J44.9 ; GERD (gastroesophageal reflux disease) K21.9 ; Constipation K59.00 ; CVA ( cerebral vascular accident) I63.9 and Angina at rest I20.8 [place] [id number] [place] [address] 19529- 2771 March, [place] [id number] [place] [address] 26679- 2682 Feb, [place] [id number] [place] [address] 28681- 9285 Feb, [place] [id number] [place] [address] 99494- 4246 Feb, [place] [id number] [place] [address] 01036- 5755 Jan, Diabetes mellitus E11.9 ; Hypercholesterolemia E78.0 ; CVA ( cerebral vascular accident) I63.9 ; GERD (gastroesophageal reflux disease) K21.9 ; Hypothyroid E03.9 and Angina at rest I20.8 [place] [id number] [place] [address] 93148- 1315 Dec, Diabetes mellitus E11.9 ; Hypothyroid E03.9 ; Angina at rest I20.8 ; CVA (cerebral vascular accident) I63.9 ; Hypercholesterolemia E78.0 ; COPD (chronic obstructive pulmonary disease) J44.9 ; GERD ( gastroesophageal reflux disease) K21.9 and Dysuria R30.0 [place] [id number] [place] [address] 45421- 6941 Nov, [place] [id number] [place] [address] 72903- 8517 Nov, Hypothyroid E03.9 [place] [id number] [place] [address] 02372- 9831 Nov, Hypothyroid E03.9 ; Angina at rest I20.8 ; CVA (cerebral vascular accident) I63.9 ; Hypercholesterolemia E78.0 ; COPD (chronic obstructive pulmonary disease) J44.9 ; GERD (gastroesophageal reflux disease) K21.9 and Diabetes E11.9 [facility] [address], [place] [address] -[address]27 Oct, Upper respiratory symptom R09.89 [facility] [place] [id number] [place] [address] 81906- 9318 Oct, [facility] [place] [id number] [place] [address] 42593- 3324 Oct, [facility] [place] [id number] [place] [address] 92271- 4721 Oct, [facility] [place] [id number] [place] [address] 83673- 8716 Aug, Diabetes mellitus 250.00 ; Encounter for immunization Z23 ; Hypothyroid E03.9 ; Angina at rest I20.8 ; CVA (cerebral vascular accident) I63.9 ; Hypercholesterolemia E78.0 ; COPD (chronic obstructive pulmonary disease ) J44.9 and GERD (gastroesophageal reflux disease) K21.9 [facility] [place] [id number] [place] [address] 92355- 8824 Jul, [facility] [place] [address] 89396- 2577 Jun, [facility] [place] [id number] [place] [address] 52946- 5170 Jun, [place] [id number] [place] [address] 80309- 8309 May, [facility] [place] [id number] [place] [address] 05053- 0783 May, Diabetes mellitus 250.00 ; Hypothyroidism 244.9 ; Angina at rest 413.9 ; CVA (cerebral infarction) 434.91 ; Hypercholesterolemia 272.0 ; COPD (chronic obstructive pulmonary disease) 496 and GERD (gastroesophageal reflux disease) 530.81 [facility] [place] [id number] [place] [address] 09186- 3683 Oct, [facility] [place] [address] 16077- 2126 Oct, [facility] [place] [address], [place] [address]- 7656 Oct, [facility] [place] [address], [place] [address]- 8676 Oct, [facility] [place] [address], [place] [address]- 1156 Sep, [facility] [place] [id number] [place] [address] 60509- 0910 Aug, [facility] [place] [id number] [place] [address] 82457- 7753 Aug, [facility] [place] [id number] [place] [address] 11348- 7742 Aug, [facility] [place] [id number] [place] [address] 01237- 5252 Jul, [facility] [place] [address] [address]- 7984 Jan, [facility] [place] [id number] [place] [address] 21495- 3183 Oct, [facility] [place] [address], [place] [address]- 2116 Oct, [facility] [place] [address] [address]- 1856 Sep, [facility] [place] [address] [address]- 4844 Apr, [facility] [place] [address] [address]- 4461 Dec, IMMUNIZATIONS No Known Immunizations SOCIAL HISTORY [...] lobe Pneumonia 02/24/16 Hospitalization History Chest Pain--[facility] 05/19/16 Hospitalization History Chest pain--[facility] 06/18/16 Hospitalization History Influenza & COPD exacerbation 12/21 Hospitalization History Cardiac Monitoring 01/2018 Hospitalization History Via [facility], tripped and hit head 04/2018
[2018-07-19] MEDS ORDERED: morphine INJ 10 MG/ML 1ML (SYR OR VIAL) IVP ONE (12:45)
[2018-07-19] MEDS ORDERED: ONDANSETRON 4 MG/2 ML (SDV) Z0FRAN IVP ONE (12:45)
--- OUTSIDE RECORDS SUMMARY | 2018-07-19 12:45 | XMS REPORT ---
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 Active [id number] Problem 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 Active 6751712791397 Problem History of CVA (cerebrovascular accident) Z86.73 Active 070239210 Problem Overweight (BMI 25.0-29.9) E66.3 Active 677151974 Problem Hospital discharge follow-up Z09 Active 867533036 Problem Osteopenia of spine M85.88 Active 258295618 Problem Former smoker Z87.891 Active 0235427 Problem GERD (gastroesophageal reflux disease) K21.9 Active 006416731 Problem Angina at rest I20.8 Active 53187192 Problem Hypothyroid E03.9 Active 73862944 Problem Constipation K59.00 Active 39423361 Problem COPD (chronic obstructive pulmonary disease) J44.9 Active 66702884 Problem Peptic ulcer K27.9 Active 42946366 ALLERGIES No Information ENCOUNTERS Encounter Location Date Diagnosis [facility] [id number] [address] Jul, [facility] [address] [facility] [id number] [address] May, [facility] [id number] [place] [address] 36014- 5039 Apr, [place] [address] [address] Apr, Type 2 diabetes mellitus without complication, without long- term current use of insulin E11.9 ; Hypothyroid E03.9 ; Hyperlipidemia LDL goal <100 E78.5 ; Overweight (BMI 25.0-29.9) E66.3 ; Vaginal candidiasis B37.3 ; COPD (chronic obstructive pulmonary disease) J44.9 ; CVA (cerebral vascular accident) I63.9 ; GERD (gastroesophageal reflux disease) K21.9 ; Angina at rest I20.8 and 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 [place] [address] [address] March, Hypothyroid E03.9 [place] [address] 8[address]- [address] March, Hypercholesterolemia E78.00 [place] [address] [address]- [address] March, Hypothyroid E03.9 [place] [address] 34803- 5794 March, Hypercholesterolemia E78.00 [place] [id number] [place] [address] 26534- 0999 Feb, Hypercholesterolemia E78.00 [place] [id number] [place] [address] 24757- 2870 Feb, Type 2 diabetes mellitus without complication, without long- term current use of insulin E11.9 [place] [address] [address]- [address] 03 Feb, 2018 Hypothyroid E03.9 [place] [id number] [place] [address] 38868- 2515 Jan, Hypothyroid E03.9 ; 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 ; Hospital discharge follow-up Z09 ; Type 2 diabetes mellitus without complication, without long-term current use of insulin E11.9 ; 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 and History of CVA (cerebrovascular accident) Z86.73 [place] [id number] [place] [address] 84121- 3177 Jan, [place] [id number] [place] [address] 53432- 6903 Jan, [place] [id number] [place] [address] 38078- 8094 Jan, Type 2 diabetes mellitus without complication, without long- term current use of insulin E11.9 [place] [id number] [place] [address] 71692- 0896 Dec, Hospital discharge follow-up Z09 ; COPD (chronic obstructive pulmonary disease) J44.9 ; Type 2 diabetes mellitus without complication, without long-term current use of insulin E11.9 ; Hypothyroid E03.9 and Vaginal discharge N89.8 [place] [id number] [place] [address] 88450- 4435 Dec, Hypothyroid E03.9 [place] [id number] [place] [address] 78206- 8148 Dec, Type 2 diabetes mellitus without complication, without long- term current use of insulin E11.9 [place] [id number] [place] [address] 48954- 4303 Nov, [place] [id number] [place] [address] 93606- 8006 Nov, [place] [id number] [place] [address] 27575- 4570 Nov, Pneumonia of right lower lobe due to infectious organism J18.1 ; Orthopnea R06.01 ; COPD with acute exacerbation J44.1 and Fatigue, unspecified type R53.83 [place] [id number] [place] [address] 22471- 5558 Nov, [place] [address], [place] [address] Nov, [place] [address], [place] [address] Oct, Pneumonia of right lower lobe due to infectious organism J18.1 [place] [address], [place] [address] 5[address] Oct, Pneumonia of right lower lobe due to infectious organism J18.1 [place] [id number] [place] [address] 42393- 5625 Oct, Pneumonia of right lower lobe due to infectious organism J18.1 [place] [id number] [place] [address] 77419- 2014 Oct, COPD exacerbation J44.1 [place] [address] [place] [address] 61388- 5203 Oct, [place] [id number] [place] [address] 36652- 0580 Oct, COPD exacerbation J44.1 [place] [id number] [place] [address] 95604- 6040 Oct, Encounter for immunization Z23 and COPD (chronic obstructive pulmonary disease) J44.9 [place] [address], [place] [address] 06 Oct, 2017 Medicare annual wellness visit, subsequent Z00.00 ; History of tobacco use Z87.891 ; Need for Zostavax administration Z23 ; Post-menopausal Z78.0 ; Screening for breast cancer Z12.31 ; Screening for colon cancer Z12.11 ; 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 and Encounter for immunization Z23 [place] [id number] [place] [address] 29362- 1638 Sep, Type 2 diabetes mellitus without complication, without long- term current use of insulin E11.9 [place] [address] [place] [address] 96539- 2108 Sep, Type 2 diabetes mellitus without complication, without long- term current use of insulin E11.9 ; COPD (chronic obstructive pulmonary disease ) J44.9 ; Hypothyroid E03.9 ; GERD (gastroesophageal reflux disease) K21.9 ; CVA (cerebral vascular accident) I63.9 ; Hyperlipidemia LDL goal <100 E78.5 ; Coronary artery disease of circle heart with stable angina pectoris, unspecified vessel or lesion type I25.118 and 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 [place] [address] 60906- 8534 Aug, Type 2 diabetes mellitus without complication, without long- term current use of insulin E11.9 [place] [id number] [place] [address] 62475- 5581 Aug, Hypothyroid E03.9 [place] [id number] [place] [address] 74202- 5068 Aug, Type 2 diabetes mellitus without complication, without long- term current use of insulin E11.9 ; COPD (chronic obstructive pulmonary disease ) J44.9 ; Hypothyroid E03.9 ; GERD (gastroesophageal reflux disease) K21.9 ; CVA (cerebral vascular accident) I63.9 ; Hyperlipidemia LDL goal <100 E78.5 ; Coronary artery disease of circle heart with stable angina pectoris, unspecified vessel or lesion type I25.118 and Encounter for immunization Z23 [place] [id number] [place] [address] 87014- 2256 Jul, Hypothyroid E03.9 and Hypercholesterolemia E78.00 [place] [id number] [place] [address] 68060- 8931 Jul, Hypothyroid E03.9 ; Diabetes mellitus E11.9 and Hypercholesterolemia E78.0 [place] [id number] [place] [address] 30227- 5514 Jul, Hypothyroid E03.9 ; Diabetes mellitus E11.9 and Hypercholesterolemia E78.0 [place] [id number] [place] [address] 41065- 0676 May, CVA (cerebral vascular accident) I63.9 and Dizziness R42 [place] [id number] [place] [address] 92410- 4064 May, Dehydration E86.0 ; CVA (cerebral vascular accident) I63.9 ; COPD (chronic obstructive pulmonary disease) J44.9 and Dizziness R42 [place] [address] 98995- 30[address] March, Diabetes mellitus E11.9 ; Angina at rest I20.8 ; COPD ( chronic obstructive pulmonary disease) J44.9 ; GERD (gastroesophageal reflux disease) K21.9 ; Hypercholesterolemia E78.00 ; CVA (cerebral vascular accident) I63.9 and Hypothyroid E03.9 [place] [address] 05394- 3359 Jan, Hypothyroid E03.9 and Diabetes mellitus E11.9 [place] [address] 73514- 2298 Jan, [place] [address] 07857- 5436 Jan, Diabetes mellitus E11.9 [place] [address] 24174- 8564 Jan, [place] [id number] [place] [address] 76566- 5587 Dec, Diabetes mellitus E11.9 ; CVA (cerebral vascular accident) I63.9 ; COPD (chronic obstructive pulmonary disease) J44.9 ; Hypothyroid E03.9 ; GERD (gastroesophageal reflux disease) K21.9 and Hypercholesterolemia E78.00 [place] [id number] [place] [address] 26429- 7017 Nov, Diabetes mellitus E11.9 [place] [address] 03859- 7033 Nov, [place] [address] 23619- 5616 Nov, [facility] [address], [place] [address] Nov, [facility] [id number] [place] [address] 60519- 1264 Nov, Diabetes mellitus E11.9 [facility] [id number] [place] [address] 03111- 2177 Oct, Hypothyroid E03.9 [facility] [id number] [place] [address] 66088- 7887 Oct, Diabetes mellitus E11.9 [facility] [id number] [place] [address] 07338- 0668 Oct, COPD (chronic obstructive pulmonary disease) J44.9 [facility] [id number] [place] [address] 29490- 0267 Oct, [facility] [id number] [place] [address] 04944- 8273 Sep, Diabetes mellitus E11.9 ; Angina at rest I20.8 ; Hypercholesterolemia E78.0 ; COPD (chronic obstructive pulmonary disease) J44.9 ; GERD (gastroesophageal reflux disease) K21.9 ; Dysuria R30.0 ; Acquired hypothyroidism E03.9 ; Encounter for immunization Z23 and Acute cystitis without hematuria N30.00 [facility] [address], [place] [address]- 60[address] Sep, Diabetes mellitus E11.9 [facility] [address], [place] [address] Aug, [facility] [id number] [place] [address] 05606- 2140 Aug, Diabetes mellitus E11.9 [facility] [address], [place] [address]- 9855 Jun, Angina at rest I20.8 ; CVA (cerebral vascular accident) I63.9 ; Diabetes mellitus E11.9 ; Hypercholesterolemia E78.0 ; COPD (chronic obstructive pulmonary disease) J44.9 ; GERD (gastroesophageal reflux disease) K21.9 ; Peptic ulcer K27.9 and Hypothyroid E03.9 [facility] [id number] [place] [address] 96513- 0856 Jun, [facility] [id number] [place] [address] 98099- 9497 May, Diabetes mellitus E11.9 ; CVA (cerebral vascular accident) I63.9 ; COPD (chronic obstructive pulmonary disease) J44.9 and Angina at rest I20.8 [place] [id number] [place] [address] 66548- 4128 May, [place] [id number] [place] [address] 93844- 9049 May, Diabetes mellitus E11.9 ; Hypothyroid E03.9 ; Angina at rest I20.8 ; CVA (cerebral vascular accident) I63.9 ; COPD (chronic obstructive pulmonary disease) J44.9 ; GERD (gastroesophageal reflux disease) K21.9 and Hypercholesterolemia E78.0 [place] [id number] [place] [address] 90785- 0434 Apr, Hypercholesterolemia E78.0 [facility] [id number] [place] [address] 79402- 0228 Apr, [facility] [id number] [place] [address] 45345- 2102 March, Diabetes mellitus E11.9 ; Hypothyroid E03.9 ; Hypercholesterolemia E78.0 ; COPD (chronic obstructive pulmonary disease) J44.9 ; GERD (gastroesophageal reflux disease) K21.9 ; Constipation K59.00 ; CVA ( cerebral vascular accident) I63.9 and Angina at rest I20.8 [facility] [id number] [place] [address] 98682- 3217 March, [facility] [id number] [place] [address] 36064- 6814 Feb, [facility] [id number] [place] [address] 02270- 6817 Feb, [facility] [address] 27710- 5239 Feb, [facility] [id number] [place] [address] 23069- 9664 Jan, Diabetes mellitus E11.9 ; Hypercholesterolemia E78.0 ; CVA ( cerebral vascular accident) I63.9 ; GERD (gastroesophageal reflux disease) K21.9 ; Hypothyroid E03.9 and Angina at rest I20.8 [place] [id number] [place] [address] 87328- 6111 Dec, Diabetes mellitus E11.9 ; Hypothyroid E03.9 ; Angina at rest I20.8 ; CVA (cerebral vascular accident) I63.9 ; Hypercholesterolemia E78.0 ; COPD (chronic obstructive pulmonary disease) J44.9 ; GERD ( gastroesophageal reflux disease) K21.9 and Dysuria R30.0 [place] [id number] [place] [address] 90004- 8810 Nov, [place] [id number] [place] [address] 00550- 0498 Nov, Hypothyroid E03.9 [facility] [id number] [place] [address] 60418- 1510 Nov, Hypothyroid E03.9 ; Angina at rest I20.8 ; CVA (cerebral vascular accident) I63.9 ; Hypercholesterolemia E78.0 ; COPD (chronic obstructive pulmonary disease) J44.9 ; GERD (gastroesophageal reflux disease) K21.9 and Diabetes E11.9 [facility] [id number] [place] [address] 16565 -1655 Oct, Upper respiratory symptom R09.89 [facility] [id number] [place] [address] 58473- 4854 Oct, [facility] [address] 58707- 3126 Oct, [facility] [id number] [place] [address] 97290- 4602 Oct, [facility] [id number] [place] [address] 623568- 1291 Aug, Diabetes mellitus 250.00 ; Encounter for immunization Z23 ; Hypothyroid E03.9 ; Angina at rest I20.8 ; CVA (cerebral vascular accident) I63.9 ; Hypercholesterolemia E78.0 ; COPD (chronic obstructive pulmonary disease ) J44.9 and GERD (gastroesophageal reflux disease) K21.9 [facility] [id number] [place] [address] 49434- 1922 Jul, [facility] [id number] [place] [address] 76384- 0887 Jun, [facility] [id number] [place] [address] 36015- 8367 Jun, [facility] [id number] [place] [address] 92022- 0075 May, [facility] [id number] [place] [address] 91062- 0333 May, Diabetes mellitus 250.00 ; Hypothyroidism 244.9 ; Angina at rest 413.9 ; CVA (cerebral infarction) 434.91 ; Hypercholesterolemia 272.0 ; COPD (chronic obstructive pulmonary disease) 496 and GERD (gastroesophageal reflux disease) 530.81 [facility] [id number] [place] [address] 10382- 6469 Oct, [facility] [id number] [place] [address] 41186- 4248 Oct, [facility] [id number] [place] [address] 13334- 2668 Oct, [facility] [id number] [place] [address] 13311- 5787 Oct, [facility] [id number] [place] [address] 70223- 3688 Sep, [facility] [address], [place] [address]- 4532 Aug, [facility] [address], [place] [address]- 9642 Aug, [facility] [address], [place] [address]- 8316 Aug, [facility] [id number] [place] [address] 38811- 0356 Jul, [facility] [id number] [place] [address] 177049- 2284 Jan, [facility] [id number] [place] [address] 15560- 2526 Oct, [facility] [id number] [place] [address] 58822- 2969 Oct, [facility] [address], [place] [address]- 9325 Sep, [facility] [address], [place] [address]- 7352 Apr, [facility] [address], [place] [address]- 7599 Dec, IMMUNIZATIONS No Known Immunizations SOCIAL HISTORY Never Assessed REASON FOR VISIT Refill request PLAN OF CARE VITAL SIGNS MEDICATIONS Medication Instructions Dosage Frequency Start Date End Date Duration Status Levothyroxine Sodium 75 mcg Orally Once a day 1 tablet 24h Nov, 30 days Active RESULTS No Results PROCEDURES [...] lobe Pneumonia 02/24/16 Hospitalization History Chest Pain--[facility] 05/19/16 Hospitalization History [facility]--[facility] 06/18/16 Hospitalization History Influenza & COPD exacerbation 12/21 Hospitalization History Cardiac Monitoring 01/2018 Hospitalization History Via [facility] [place] [facility], tripped and hit head 04/2018
--- OUTSIDE RECORDS SUMMARY | 2018-07-19 12:45 | XMS REPORT ---
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 Active [id number] Problem 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 Active 7223597906783 Problem History of CVA (cerebrovascular accident) Z86.73 Active 824691433 Problem Overweight (BMI 25.0-29.9) E66.3 Active 158189862 Problem Hospital discharge follow-up Z09 Active 790355503 Problem Osteopenia of spine M85.88 Active 742492638 Problem Former smoker Z87.891 Active 6585552 Problem GERD (gastroesophageal reflux disease) K21.9 Active 338553088 Problem Angina at rest I20.8 Active 29246502 Problem Hypothyroid E03.9 Active 03808125 Problem Constipation K59.00 Active 35744828 Problem COPD (chronic obstructive pulmonary disease) J44.9 Active 63934170 Problem Peptic ulcer K27.9 Active 01437053 ALLERGIES No Information ENCOUNTERS Encounter Location Date Diagnosis [facility] [address] [facility] [id number] [address] Apr, [facility] [address] 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 [place] [address] [address] March, Hypothyroid E03.9 [place] [address] 70554- 5151 March, Hypercholesterolemia E78.00 [place] [address] 94377- 0804 March, Hypothyroid E03.9 [place] [address] 69556- 2027 March, Hypercholesterolemia E78.00 [place] [address] 31658- 6032 Feb, Hypercholesterolemia E78.00 [place] [address] 59331- 0132 Feb, Type 2 diabetes mellitus without complication, without long- term current use of insulin E11.9 [place] [address] [place] [id number] [place] [address] 23154- 3802 03 Feb, 2018 Hypothyroid E03.9 [place] [address] [place] [id number] [place] [address] 95797- 2513 14 Jan, 2018 Hypothyroid E03.9 ; 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 ; Hospital discharge follow-up Z09 ; Type 2 diabetes mellitus without complication, without long-term current use of insulin E11.9 ; 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 and History of CVA (cerebrovascular accident) Z86.73 [place] [address] [place] [address] Jan, [place] [address] [place] [id number] [place] [address] 09027- 1573 Jan, [place] [address] [place] [id number] [place] [address] 53154- 4197 Jan, Type 2 diabetes mellitus without complication, without long- term current use of insulin E11.9 [place] [address] [place] [id number] [place] [address] 66617- 1023 Dec, Hospital discharge follow-up Z09 ; COPD (chronic obstructive pulmonary disease) J44.9 ; Type 2 diabetes mellitus without complication, without long-term current use of insulin E11.9 ; Hypothyroid E03.9 and Vaginal discharge N89.8 [place] [address] [place] [id number] [place] [address] 27421- 2137 Dec, Hypothyroid E03.9 [place] [address] [place] [id number] [place] [address] 19461- 5822 Dec, Type 2 diabetes mellitus without complication, without long- term current use of insulin E11.9 [place] [address] [place] [id number] [place] [address] 19607- 8514 Nov, [place] [address] [place] [id number] [place] [address] 59007- 0401 Nov, [place] [address] [place] [id number] [place] [address] 38165- 3185 Nov, Pneumonia of right lower lobe due to infectious organism J18.1 ; Orthopnea R06.01 ; COPD with acute exacerbation J44.1 and Fatigue, unspecified type R53.83 [place] [address] [place] [id number] [place] [address] 36673- 7351 Nov, [place] [address] [place] [id number] [place] [address] 79997- 7295 Nov, [place] [address] [place] [id number] [place] [address] 18821- 4628 Oct, Pneumonia of right lower lobe due to infectious organism J18.1 [place] [id number] [address] Oct, Pneumonia of right lower lobe due to infectious organism J18.1 [place] [address] [address] 4058 Oct, Pneumonia of right lower lobe due to infectious organism J18.1 [place] [id number] [place] [address] 21814- 7514 Oct, COPD exacerbation J44.1 [place] [id number] [place] [address] 49662- 5652 Oct, [place] [address] [place] [id number] [place] [address] 29383- 0839 Oct, COPD exacerbation J44.1 [place] [id number] [place] [address] 72499- 4534 Oct, Encounter for immunization Z23 and COPD (chronic obstructive pulmonary disease) J44.[address] [place] [address] 19347- 7769 Oct, Medicare annual wellness visit, subsequent Z00.00 ; History of tobacco use Z87.891 ; Need for Zostavax administration Z23 ; Post-menopausal Z78.0 ; Screening for breast cancer Z12.31 ; Screening for colon cancer Z12.11 ; 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 and Encounter for immunization Z23 [id number] [address] Sep, Type 2 diabetes mellitus without complication, without long- term current use of insulin E11.9 [id number] [place] [address] 21137- 0427 Sep, Type 2 diabetes mellitus without complication, without long- term current use of insulin E11.9 ; COPD (chronic obstructive pulmonary disease ) J44.9 ; Hypothyroid E03.9 ; GERD (gastroesophageal reflux disease) K21.9 ; CVA (cerebral vascular accident) I63.9 ; Hyperlipidemia LDL goal <100 E78.5 ; Coronary artery disease of [place] heart with stable angina pectoris, unspecified vessel or lesion type I25.118 and 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 [place] [address] 73462- 1865 Aug, Type 2 diabetes mellitus without complication, without long- term current use of insulin E11.9 [place] [address] 50480- 3257 Aug, Hypothyroid E03.9 [place] [address] 23318- 3353 Aug, Type 2 diabetes mellitus without complication, without long- term current use of insulin E11.9 ; COPD (chronic obstructive pulmonary disease ) J44.9 ; Hypothyroid E03.9 ; GERD (gastroesophageal reflux disease) K21.9 ; CVA (cerebral vascular accident) I63.9 ; Hyperlipidemia LDL goal <100 E78.5 ; Coronary artery disease of [place] heart with stable angina pectoris, unspecified vessel or lesion type I25.118 and Encounter for immunization Z23 [place] [address] 88764- 7525 Jul, Hypothyroid E03.9 and Hypercholesterolemia E78.00 [place] [address] 38117- 1631 Jul, Hypothyroid E03.9 ; Diabetes mellitus E11.9 and Hypercholesterolemia E78.0 [place] [address] 12036- 9251 Jul, Hypothyroid E03.9 ; Diabetes mellitus E11.9 and Hypercholesterolemia E78.0 [place] [address] 18506- 9408 May, CVA (cerebral vascular accident) I63.9 and Dizziness R42 [place] [address] 81755- 8145 May, Dehydration E86.0 ; CVA (cerebral vascular accident) I63.9 ; COPD (chronic obstructive pulmonary disease) J44.9 and Dizziness R42 [facility] [address] [place] [id number] [place] [address] 68479- 6417 March, Diabetes mellitus E11.9 ; Angina at rest I20.8 ; COPD ( chronic obstructive pulmonary disease) J44.9 ; GERD (gastroesophageal reflux disease) K21.9 ; Hypercholesterolemia E78.00 ; CVA (cerebral vascular accident) I63.9 and Hypothyroid E03.9 [facility] [address] [place] [id number] [place] [address] 97779- 2072 Jan, Hypothyroid E03.9 and Diabetes mellitus E11.9 [facility] [address] [place] [id number] [place] [address] 37093- 2281 Jan, [place] [address] [place] [id number] [place] [address] 78909- 9179 Jan, Diabetes mellitus E11.9 [facility] [address] [place] [id number] [place] [address] 08494- 4654 Jan, [facility] [address] [place] [id number] [place] [address] 44016- 9702 Dec, Diabetes mellitus E11.9 ; CVA (cerebral vascular accident) I63.9 ; COPD (chronic obstructive pulmonary disease) J44.9 ; Hypothyroid E03.9 ; GERD (gastroesophageal reflux disease) K21.9 and Hypercholesterolemia E78.00 [facility] [address] [place] [id number] [place] [address] 60285- 8395 Nov, Diabetes mellitus E11.9 [facility] [address] [place] [id number] [address]- 0673 Nov, [facility] [address] [place] [id number] [place] [address] 65358- 0521 Nov, [facility] [address] [place] [id number] [place] [address] 84558- 7773 Nov, [facility] [address] [place] [id number] [place] [address] 29447- 6520 Nov, Diabetes mellitus E11.9 [facility] [address] [place] [id number] [place] [address] 98767- 3480 Oct, Hypothyroid E03.9 [facility] [address] [place] [id number] [place] [address] 59574- 8140 Oct, Diabetes mellitus E11.9 [facility] [address] 18998- 5175 Oct, COPD (chronic obstructive pulmonary disease) J44.9 [facility] [address] [place] [id number] [place] [address] 97251- 0286 Oct, [place] [address] 97949- 7940 Sep, Diabetes mellitus E11.9 ; Angina at rest I20.8 ; Hypercholesterolemia E78.0 ; COPD (chronic obstructive pulmonary disease) J44.9 ; GERD (gastroesophageal reflux disease) K21.9 ; Dysuria R30.0 ; Acquired hypothyroidism E03.9 ; Encounter for immunization Z23 and Acute cystitis without hematuria N30.00 [place] [address] [place] [id number] [place] [address] 89897- 7109 Sep, Diabetes mellitus E11.9 [facility] [address] [place] [id number] [place] [address] 39740 -7806 Aug, [facility] [address] [place] [id number] [place] [address] 54502- 4825 Aug, Diabetes mellitus E11.9 [facility] [address] [place] [id number] [place] [address] 62134- 3337 Jun, Angina at rest I20.8 ; CVA (cerebral vascular accident) I63.9 ; Diabetes mellitus E11.9 ; Hypercholesterolemia E78.0 ; COPD (chronic obstructive pulmonary disease) J44.9 ; GERD (gastroesophageal reflux disease) K21.9 ; Peptic ulcer K27.9 and Hypothyroid E03.9 [facility] [address] [place] [id number] [place] [address] 32892- 5598 Jun, [facility] [address] [address]- 3025 May, Diabetes mellitus E11.9 ; CVA (cerebral vascular accident) I63.9 ; COPD (chronic obstructive pulmonary disease) J44.9 and Angina at rest I20.8 [facility] [address] [place] [id number] [address]- 6455 May, [facility] [address] [place] [id number] [place] [address] 84733- 5640 May, Diabetes mellitus E11.9 ; Hypothyroid E03.9 ; Angina at rest I20.8 ; CVA (cerebral vascular accident) I63.9 ; COPD (chronic obstructive pulmonary disease) J44.9 ; GERD (gastroesophageal reflux disease) K21.9 and Hypercholesterolemia E78.0 [place] [address] [place] [id number] [place] [address] 16051- 7962 Apr, Hypercholesterolemia E78.0 [facility] [address] [place] [id number] [place] [address] 12729- 1203 Apr, [place] [address] [place] [id number] [place] [address] 50325- 9771 March, Diabetes mellitus E11.9 ; Hypothyroid E03.9 ; Hypercholesterolemia E78.0 ; COPD (chronic obstructive pulmonary disease) J44.9 ; GERD (gastroesophageal reflux disease) K21.9 ; Constipation K59.00 ; CVA ( cerebral vascular accident) I63.9 and Angina at rest I20.8 [place] [address] [address]- 9377 March, [facility] [address] [place] [id number] [place] [address] 02582- 0778 Feb, [facility] [address] [place] [id number] [address]- 7256 Feb, [facility] [address] [place] [id number] [place] [address] 30885- 6064 Feb, [facility] [address] [place] [address] 81093- 7543 Jan, Diabetes mellitus E11.9 ; Hypercholesterolemia E78.0 ; CVA ( cerebral vascular accident) I63.9 ; GERD (gastroesophageal reflux disease) K21.9 ; Hypothyroid E03.9 and Angina at rest I20.8 [facility] [address] [place] [id number] [place] [address] 98116- 6751 Dec, Diabetes mellitus E11.9 ; Hypothyroid E03.9 ; Angina at rest I20.8 ; CVA (cerebral vascular accident) I63.9 ; Hypercholesterolemia E78.0 ; COPD (chronic obstructive pulmonary disease) J44.9 ; GERD ( gastroesophageal reflux disease) K21.9 and Dysuria R30.0 [facility] [address] [place] [id number] [place] [address] 70849- 8682 Nov, [place] [address] 59094- 6605 Nov, Hypothyroid E03.9 [facility] [address] [place] [id number] [place] [address] 93395- 1883 Nov, Hypothyroid E03.9 ; Angina at rest I20.8 ; CVA (cerebral vascular accident) I63.9 ; Hypercholesterolemia E78.0 ; COPD (chronic obstructive pulmonary disease) J44.9 ; GERD (gastroesophageal reflux disease) K21.9 and Diabetes E11.9 [facility] [address] [place] [id number] [place] [address] 56975 -3990 Oct, Upper respiratory symptom R09.89 [facility] [address] [place] [id number] [place] [address] 38493- 7854 Oct, [facility] [address] [place] [id number] [place] [address] 71407- 1592 Oct, [facility] [address] [place] [id number] [place] [address] 64606- 7899 Oct, [facility] [address] 30607- 7048 Aug, Diabetes mellitus 250.00 ; Encounter for immunization Z23 ; Hypothyroid E03.9 ; Angina at rest I20.8 ; CVA (cerebral vascular accident) I63.9 ; Hypercholesterolemia E78.0 ; COPD (chronic obstructive pulmonary disease ) J44.9 and GERD (gastroesophageal reflux disease) K21.9 [facility] [address] [place] [id number] [place] [address] 07017- 7175 Jul, [facility] [address] 34284- 2449 Jun, [facility] [address] 65765- 6118 Jun, [facility] [address] 22574- 8339 May, [facility] [address] 26376- 2481 May, Diabetes mellitus 250.00 ; Hypothyroidism 244.9 ; Angina at rest 413.9 ; CVA (cerebral infarction) 434.91 ; Hypercholesterolemia 272.0 ; COPD (chronic obstructive pulmonary disease) 496 and GERD (gastroesophageal reflux disease) 530.81 [facility] [address] [place] [id number] [place] [address] 27431- 9118 Oct, [facility] [address] [place] [id number] [place] [address] 65555- 3809 Oct, [facility] [address] 80398- 2327 Oct, [facility] [address] [place] [id number] [place] [address] 69320- 7495 Oct, [facility] [address] 44196- 6011 Sep, [facility] [address] [place] [id number] [place] [address] 54910- 2406 Aug, [facility] [address] 80735- 7046 15 Aug, 2010 [facility] [address] [place] [id number] [address]- 2327 15 Aug, 2010 [facility] [address] [place] [id number] [address]- 7396 13 Jul, 2010 [facility] [address] [place] [id number] [address]- 0275 15 Jan, 2010 [facility] [address] [address]- 4016 30 Oct, 2009 [facility] [address] [address]- 8162 Oct, [facility] [address] [address]- 4610 Sep, [facility] [address] [place] [id number] [address]- 8679 Apr, [facility] [address] [place] [id number] [address]- 2174 Dec, IMMUNIZATIONS No Known Immunizations SOCIAL HISTORY Never Assessed REASON FOR VISIT NA PLAN OF CARE VITAL SIGNS MEDICATIONS Unknown [...] lobe Pneumonia 02/24/16 Hospitalization History Chest Pain--[facility]ia [facility] 05/19/16 Hospitalization History Chest pain--VC 06/18/16 Hospitalization History Influenza & COPD exacerbation 12/21 Hospitalization History Cardiac Monitoring 01/2018 Hospitalization History Via [facility], tripped and hit head 04/2018
--- OUTSIDE RECORDS SUMMARY | 2018-07-19 12:46 | XMS REPORT ---
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 Active [id number] Problem 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 Active 4246504141701 Problem History of CVA (cerebrovascular accident) Z86.73 Active 451936325 Problem Overweight (BMI 25.0-29.9) E66.3 Active 117545223 Problem Hospital discharge follow-up Z09 Active 088940862 Problem Osteopenia of spine M85.88 Active 764602463 Problem Former smoker Z87.891 Active 8707443 Problem GERD (gastroesophageal reflux disease) K21.9 Active 868625924 Problem Angina at rest I20.8 Active 35459182 Problem Hypothyroid E03.9 Active 21917952 Problem Constipation K59.00 Active 69800041 Problem COPD (chronic obstructive pulmonary disease) J44.9 Active 28176691 Problem Peptic ulcer K27.9 Active 08309269 ALLERGIES No Information ENCOUNTERS Encounter Location Date Diagnosis [facility], [place] [address] [facility] [id number] [address] Apr, [facility], [place] [address] [facility] [id number], [place] [address] Apr, Type 2 diabetes mellitus without complication, without long- term current use of insulin E11.9 ; Hypothyroid E03.9 ; Hyperlipidemia LDL goal <100 E78.5 ; Overweight (BMI 25.0-29.9) E66.3 ; Vaginal candidiasis B37.3 ; COPD (chronic obstructive pulmonary disease) J44.9 ; CVA (cerebral vascular accident) I63.9 ; GERD (gastroesophageal reflux disease) K21.9 ; Angina at rest I20.8 and 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 [place] [address] [address] March, Hypothyroid E03.9 [place] [address] 38552- 8271 March, Hypercholesterolemia E78.00 [place] [address] 40892- 4081 March, Hypothyroid E03.9 [place] [address] 73330- 4422 March, Hypercholesterolemia E78.00 [place] [address] 08141- 1585 Feb, Hypercholesterolemia E78.00 [place] [address] 85980- 3811 Feb, Type 2 diabetes mellitus without complication, without long- term current use of insulin E11.9 [place] [address] [place] [id number] [place] [address] 11164- 3702 03 Feb, 2018 Hypothyroid E03.9 [place] [address] [place] [id number] [place] [address] 00383- 4415 14 Jan, 2018 Hypothyroid E03.9 ; 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 ; Hospital discharge follow-up Z09 ; Type 2 diabetes mellitus without complication, without long-term current use of insulin E11.9 ; 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 and History of CVA (cerebrovascular accident) Z86.73 [place] [address] [place] [address] Jan, [place] [address] [place] [id number] [place] [address] 15230- 1676 Jan, [place] [address] [place] [id number] [place] [address] 14143- 0395 Jan, Type 2 diabetes mellitus without complication, without long- term current use of insulin E11.9 [place] [address] [place] [id number] [place] [address] 60138- 2074 Dec, Hospital discharge follow-up Z09 ; COPD (chronic obstructive pulmonary disease) J44.9 ; Type 2 diabetes mellitus without complication, without long-term current use of insulin E11.9 ; Hypothyroid E03.9 and Vaginal discharge N89.8 [place] [address] [place] [id number] [place] [address] 69814- 2783 Dec, Hypothyroid E03.9 [place] [address] [place] [id number] [place] [address] 92536- 1742 Dec, Type 2 diabetes mellitus without complication, without long- term current use of insulin E11.9 [place] [address] [place] [id number] [place] [address] 61360- 7655 Nov, [place] [address] [place] [id number] [place] [address] 94103- 6955 Nov, [place] [address] [place] [id number] [place] [address] 93431- 0921 Nov, Pneumonia of right lower lobe due to infectious organism J18.1 ; Orthopnea R06.01 ; COPD with acute exacerbation J44.1 and Fatigue, unspecified type R53.83 [place] [address] [place] [id number] [place] [address] 14028- 3712 Nov, [place] [address] [place] [id number] [place] [address] 87696- 8145 Nov, [place] [address] [place] [id number] [place] [address] 54020- 4491 Oct, Pneumonia of right lower lobe due to infectious organism J18.1 [place] [address] [address] 6763 Oct, Pneumonia of right lower lobe due to infectious organism J18.1 [place] [address] [address] 5263 Oct, Pneumonia of right lower lobe due to infectious organism J18.1 [place] [address] [place] [address] 83757- 1185 Oct, COPD exacerbation J44.1 [place] [id number] [place] [address] 59900- 1921 Oct, [place] [address] [place] [id number] [place] [address] 68983- 6237 Oct, COPD exacerbation J44.1 [place] [id number] [place] [address] 00888- 5867 Oct, Encounter for immunization Z23 and COPD (chronic obstructive pulmonary disease) J44.[address] [place] [address] 42249- 9781 Oct, Medicare annual wellness visit, subsequent Z00.00 ; History of tobacco use Z87.891 ; Need for Zostavax administration Z23 ; Post-menopausal Z78.0 ; Screening for breast cancer Z12.31 ; Screening for colon cancer Z12.11 ; 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 and Encounter for immunization Z23 [address] [address] Sep, Type 2 diabetes mellitus without complication, without long- term current use of insulin E11.9 [address] [place] [address] 47959- 3588 Sep, Type 2 diabetes mellitus without complication, without long- term current use of insulin E11.9 ; COPD (chronic obstructive pulmonary disease ) J44.9 ; Hypothyroid E03.9 ; GERD (gastroesophageal reflux disease) K21.9 ; CVA (cerebral vascular accident) I63.9 ; Hyperlipidemia LDL goal <100 E78.5 ; Coronary artery disease of [place] heart with stable angina pectoris, unspecified vessel or lesion type I25.118 and 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 [place] [address] 27689- 5883 Aug, Type 2 diabetes mellitus without complication, without long- term current use of insulin E11.9 [place] [address] 97822- 7463 Aug, Hypothyroid E03.9 [place] [address] 08479- 2150 Aug, Type 2 diabetes mellitus without complication, without long- term current use of insulin E11.9 ; COPD (chronic obstructive pulmonary disease ) J44.9 ; Hypothyroid E03.9 ; GERD (gastroesophageal reflux disease) K21.9 ; CVA (cerebral vascular accident) I63.9 ; Hyperlipidemia LDL goal <100 E78.5 ; Coronary artery disease of [place] heart with stable angina pectoris, unspecified vessel or lesion type I25.118 and Encounter for immunization Z23 [place] [address] 74939- 9189 Jul, Hypothyroid E03.9 and Hypercholesterolemia E78.00 [place] [address] 45198- 6266 Jul, Hypothyroid E03.9 ; Diabetes mellitus E11.9 and Hypercholesterolemia E78.0 [place] [address] 93303- 4660 Jul, Hypothyroid E03.9 ; Diabetes mellitus E11.9 and Hypercholesterolemia E78.0 [place] [address] 34205- 9013 May, CVA (cerebral vascular accident) I63.9 and Dizziness R42 [place] [address] 25341- 0392 May, Dehydration E86.0 ; CVA (cerebral vascular accident) I63.9 ; COPD (chronic obstructive pulmonary disease) J44.9 and Dizziness R42 [facility], [place] [address] [place] [id number] [place] [address] 00632- 6800 March, Diabetes mellitus E11.9 ; Angina at rest I20.8 ; COPD ( chronic obstructive pulmonary disease) J44.9 ; GERD (gastroesophageal reflux disease) K21.9 ; Hypercholesterolemia E78.00 ; CVA (cerebral vascular accident) I63.9 and Hypothyroid E03.9 [facility], [place] [address] [place] [id number] [place] [address] 35566- 4638 Jan, Hypothyroid E03.9 and Diabetes mellitus E11.9 [facility], [place] [address] [place] [id number] [place] [address] 64921- 4405 Jan, [place] [address] [place] [id number] [place] [address] 10500- 0984 Jan, Diabetes mellitus E11.9 [facility], [place] [address] [place] [id number] [place] [address] 94514- 8033 Jan, [facility], [place] [address] [place] [id number] [place] [address] 10837- 2906 Dec, Diabetes mellitus E11.9 ; CVA (cerebral vascular accident) I63.9 ; COPD (chronic obstructive pulmonary disease) J44.9 ; Hypothyroid E03.9 ; GERD (gastroesophageal reflux disease) K21.9 and Hypercholesterolemia E78.00 [facility], [place] [address] [place] [id number] [place] [address] 34239- 9321 Nov, Diabetes mellitus E11.9 [facility], [place] [address] [id number] [address]- 3407 Nov, [facility], [place] [address] [place] [id number] [place] [address] 43948- 6094 Nov, [facility], [place] [address] [place] [id number] [place] [address] 86711- 4032 Nov, [facility], [place] [address] [place] [id number] [place] [address] 24037- 8420 Nov, Diabetes mellitus E11.9 [facility], [place] [address] [place] [id number] [place] [address] 44922- 8168 Oct, Hypothyroid E03.9 [facility], [place] [address] [place] [id number] [place] [address] 56056- 5257 Oct, Diabetes mellitus E11.9 [facility], [place] [address] 28787- 1175 Oct, COPD (chronic obstructive pulmonary disease) J44.9 [facility], [place] [address] [place] [id number] [place] [address] 28790- 6052 Oct, [place] [address] 46368- 0253 Sep, Diabetes mellitus E11.9 ; Angina at rest I20.8 ; Hypercholesterolemia E78.0 ; COPD (chronic obstructive pulmonary disease) J44.9 ; GERD (gastroesophageal reflux disease) K21.9 ; Dysuria R30.0 ; Acquired hypothyroidism E03.9 ; Encounter for immunization Z23 and Acute cystitis without hematuria N30.00 [place] [address] [place] [id number] [place] [address] 21517- 9669 Sep, Diabetes mellitus E11.9 [facility] [address] [place] [id number] [place] [address] 20155 -0884 Aug, [facility], [place] [address] [place] [id number] [place] [address] 13592- 9274 Aug, Diabetes mellitus E11.9 [facility], [place] [address] [place] [id number] [place] [address] 51915- 1941 Jun, Angina at rest I20.8 ; CVA (cerebral vascular accident) I63.9 ; Diabetes mellitus E11.9 ; Hypercholesterolemia E78.0 ; COPD (chronic obstructive pulmonary disease) J44.9 ; GERD (gastroesophageal reflux disease) K21.9 ; Peptic ulcer K27.9 and Hypothyroid E03.9 [facility], [place] [address] [place] [id number] [place] [address] 38555- 8506 Jun, [facility], [place] [address] [address]- 7420 May, Diabetes mellitus E11.9 ; CVA (cerebral vascular accident) I63.9 ; COPD (chronic obstructive pulmonary disease) J44.9 and Angina at rest I20.8 [facility], [place] [address] [id number] [address]- 9324 May, [facility], [place] [address] [place] [id number] [place] [address] 58343- 4541 May, Diabetes mellitus E11.9 ; Hypothyroid E03.9 ; Angina at rest I20.8 ; CVA (cerebral vascular accident) I63.9 ; COPD (chronic obstructive pulmonary disease) J44.9 ; GERD (gastroesophageal reflux disease) K21.9 and Hypercholesterolemia E78.0 [place] [address] [place] [id number] [place] [address] 69840- 7018 Apr, Hypercholesterolemia E78.0 [facility], [place] [address] [place] [id number] [place] [address] 82533- 0130 Apr, [place] [address] [place] [id number] [place] [address] 96904- 8073 March, Diabetes mellitus E11.9 ; Hypothyroid E03.9 ; Hypercholesterolemia E78.0 ; COPD (chronic obstructive pulmonary disease) J44.9 ; GERD (gastroesophageal reflux disease) K21.9 ; Constipation K59.00 ; CVA ( cerebral vascular accident) I63.9 and Angina at rest I20.8 [place] [address] [address]- 1306 March, [facility], [place] [address] [place] [id number] [place] [address] 17794- 1243 Feb, [facility], [place] [address] [place] [id number] [address]- 5605 Feb, [facility], [place] [address] [place] [id number] [place] [address] 24815- 2386 Feb, [facility], [place] [address] [place] [address] 43557- 8776 Jan, Diabetes mellitus E11.9 ; Hypercholesterolemia E78.0 ; CVA ( cerebral vascular accident) I63.9 ; GERD (gastroesophageal reflux disease) K21.9 ; Hypothyroid E03.9 and Angina at rest I20.8 [facility], [place] [address] [place] [id number] [place] [address] 86142- 0761 Dec, Diabetes mellitus E11.9 ; Hypothyroid E03.9 ; Angina at rest I20.8 ; CVA (cerebral vascular accident) I63.9 ; Hypercholesterolemia E78.0 ; COPD (chronic obstructive pulmonary disease) J44.9 ; GERD ( gastroesophageal reflux disease) K21.9 and Dysuria R30.0 [facility], [place] [address] [place] [id number] [place] [address] 38263- 0805 Nov, [place] [address] 57867- 7824 Nov, Hypothyroid E03.9 [facility], [place] [address] [place] [id number] [place] [address] 22612- 5236 Nov, Hypothyroid E03.9 ; Angina at rest I20.8 ; CVA (cerebral vascular accident) I63.9 ; Hypercholesterolemia E78.0 ; COPD (chronic obstructive pulmonary disease) J44.9 ; GERD (gastroesophageal reflux disease) K21.9 and Diabetes E11.9 [facility] [address] [place] [id number] [place] [address] 48752 -4449 Oct, Upper respiratory symptom R09.89 [facility], [place] [address] [place] [id number] [place] [address] 29782- 4120 Oct, [facility], [place] [address] [place] [id number] [place] [address] 98933- 7542 Oct, [facility], [place] [address] [place] [id number] [place] [address] 97248- 3978 Oct, [facility], [place] [address] 46846- 6109 Aug, Diabetes mellitus 250.00 ; Encounter for immunization Z23 ; Hypothyroid E03.9 ; Angina at rest I20.8 ; CVA (cerebral vascular accident) I63.9 ; Hypercholesterolemia E78.0 ; COPD (chronic obstructive pulmonary disease ) J44.9 and GERD (gastroesophageal reflux disease) K21.9 [facility], [place] [address] [place] [id number] [place] [address] 30267- 9027 Jul, [facility], [place] [address] 40087- 3258 Jun, [facility], [place] [address] 06695- 7883 Jun, [facility], [place] [address] 29846- 3159 May, [facility], [place] [address] 52572- 2555 May, Diabetes mellitus 250.00 ; Hypothyroidism 244.9 ; Angina at rest 413.9 ; CVA (cerebral infarction) 434.91 ; Hypercholesterolemia 272.0 ; COPD (chronic obstructive pulmonary disease) 496 and GERD (gastroesophageal reflux disease) 530.81 [facility], [place] [address] [place] [id number] [place] [address] 03204- 7423 Oct, [facility], [place] [address] [place] [id number] [place] [address] 53719- 9723 Oct, [facility], [place] [address] 75320- 2264 Oct, [facility], [place] [address] [place] [id number] [place] [address] 25650- 4674 Oct, [facility], [place] [address] 61443- 1844 Sep, [facility], [place] [address] [place] [id number] [place] [address] 26181- 3024 Aug, [facility], [place] [address] 97612- 5466 15 Aug, 2010 [facility], [place] [address], [place] [address]- 4662 15 Aug, 2010 [facility], [place] [address] [address]- 3215 Jul, [facility], [place] [address], [place] [address]- 0959 Jan, [facility], [place] [address], [place] [address]- 6905 Oct, [facility], [place] [address] [place] [address] 24576- 7393 Oct, [facility], [place] [address] [place] [address] 85284- 9974 Sep, [facility], [place] [address] [address]- 5564 Apr, [facility], [place] [address], [place] [address]- 8948 Dec, IMMUNIZATIONS No Known Immunizations SOCIAL HISTORY Never Assessed REASON FOR VISIT Refill request PLAN OF CARE VITAL SIGNS MEDICATIONS Medication Instructions Dosage Frequency Start Date End Date Duration Status OneTouch Ultra Test - In Vitro 3 times a day USE ONE STRIP TO CHECK GLUCOSE ONCE DAILY DIRECTED 8h Active RESULTS No Results PROCEDURES No Known [...] 01/2018 Hospitalization History Via [facility] ER, tripped and hit head 04/2018
--- OUTSIDE RECORDS SUMMARY | 2018-07-19 12:46 | XMS REPORT ---
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 Active 411532034429 Problem Type 2 diabetes mellitus without complication, without long-term current use of insulin E11.9 Active 667429308 Problem CVA (cerebral vascular accident) I63.9 Active 395107644 Problem 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 Active 947632428449552 Problem 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 Active 2186892216476 Problem History of CVA (cerebrovascular accident) Z86.73 Active 951144440 Problem Overweight (BMI 25.0-29.9) E66.3 Active 264239424 Problem Hospital discharge follow-up Z09 Active 148866246 Problem Osteopenia of spine M85.88 Active 452560848 Problem Former smoker Z87.891 Active 6336013 Problem GERD (gastroesophageal reflux disease) K21.9 Active 420511701 Problem Angina at rest I20.8 Active 78337866 Problem Hypothyroid E03.9 Active 88478437 Problem Constipation K59.00 Active 80888453 Problem COPD (chronic obstructive pulmonary disease) J44.9 Active 12961803 Problem Peptic ulcer K27.9 Active 02047195 ALLERGIES No Information ENCOUNTERS Encounter Location Date Diagnosis [facility] [address] [facility] [id number] [address] Apr, [facility] [address] [facility] [id number] [address] Apr, Type 2 diabetes mellitus without complication, without long- term current use of insulin E11.9 ; Hypothyroid E03.9 ; Hyperlipidemia LDL goal <100 E78.5 ; Overweight (BMI 25.0-29.9) E66.3 ; Vaginal candidiasis B37.3 ; COPD (chronic obstructive pulmonary disease) J44.9 ; CVA (cerebral vascular accident) I63.9 ; GERD (gastroesophageal reflux disease) K21.9 ; Angina at rest I20.8 and 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 [place] [address] [address] March, Hypothyroid E03.9 [place] [address] [address]- 9[address] March, Hypercholesterolemia E78.00 [place] [address] 259[address]- 28[address] March, Hypothyroid E03.9 [place] [address] 9[address]- 9736 March, Hypercholesterolemia E78.00 [place] [address] [address]- 2774 Feb, Hypercholesterolemia E78.00 [place] [address] [address]- [address] Feb, Type 2 diabetes mellitus without complication, without long- term current use of insulin E11.9 [place] [address] [place] [id number] [place] [address] 10014- 3386 03 Feb, 2018 Hypothyroid E03.9 [place] [address] [place] [id number] [place] [address] 85366- 2519 14 Jan, 2018 Hypothyroid E03.9 ; 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 ; Hospital discharge follow-up Z09 ; Type 2 diabetes mellitus without complication, without long-term current use of insulin E11.9 ; 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 and History of CVA (cerebrovascular accident) Z86.73 [place] [address] [place] [address] Jan, [place] [address] [place] [id number] [place] [address] 30270- 7540 Jan, [place] [address] [place] [id number] [place] [address] 51301- 4553 Jan, Type 2 diabetes mellitus without complication, without long- term current use of insulin E11.9 [place] [address] [place] [id number] [place] [address] 37866- 1830 Dec, Hospital discharge follow-up Z09 ; COPD (chronic obstructive pulmonary disease) J44.9 ; Type 2 diabetes mellitus without complication, without long-term current use of insulin E11.9 ; Hypothyroid E03.9 and Vaginal discharge N89.8 [place] [address] [place] [id number] [place] [address] 22397- 4337 Dec, Hypothyroid E03.9 [place] [address] [place] [id number] [place] [address] 20136- 7444 Dec, Type 2 diabetes mellitus without complication, without long- term current use of insulin E11.9 [place] [address] [place] [id number] [place] [address] 26815- 3436 Nov, [place] [address] [place] [id number] [place] [address] 98880- 8949 Nov, [place] [address] [place] [id number] [place] [address] 30851- 9980 Nov, Pneumonia of right lower lobe due to infectious organism J18.1 ; Orthopnea R06.01 ; COPD with acute exacerbation J44.1 and Fatigue, unspecified type R53.83 [place] [address] [place] [id number] [place] [address] 73547- 0367 Nov, [place] [address] [place] [id number] [place] [address] 71847- 1873 Nov, [place] [address] [place] [id number] [place] [address] 20112- 3677 Oct, Pneumonia of right lower lobe due to infectious organism J18.1 [place] [address] [address] Oct, Pneumonia of right lower lobe due to infectious organism J18.1 [place] [address] [address] 8[address] Oct, Pneumonia of right lower lobe due to infectious organism J18.1 [place] [address] [place] [address] 49466- 3012 Oct, COPD exacerbation J44.1 [place] [id number] [place] [address] 58868- 4926 Oct, [place] [address] [place] [id number] [place] [address] 95254- 0880 Oct, COPD exacerbation J44.1 [place] [id number] [place] [address] 19354- 3885 Oct, Encounter for immunization Z23 and COPD (chronic obstructive pulmonary disease) J44.[address] [place] [address] 63078- 1921 Oct, Medicare annual wellness visit, subsequent Z00.00 ; History of tobacco use Z87.891 ; Need for Zostavax administration Z23 ; Post-menopausal Z78.0 ; Screening for breast cancer Z12.31 ; Screening for colon cancer Z12.11 ; 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 and Encounter for immunization Z23 [address] [address] Sep, Type 2 diabetes mellitus without complication, without long- term current use of insulin E11.9 [address] [place] [address] 18934- 9124 Sep, Type 2 diabetes mellitus without complication, without long- term current use of insulin E11.9 ; COPD (chronic obstructive pulmonary disease ) J44.9 ; Hypothyroid E03.9 ; GERD (gastroesophageal reflux disease) K21.9 ; CVA (cerebral vascular accident) I63.9 ; Hyperlipidemia LDL goal <100 E78.5 ; Coronary artery disease of bent[place] heart with stable angina pectoris, unspecified vessel or lesion type I25.118 and 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 [place] [address] 05282- 6167 Aug, Type 2 diabetes mellitus without complication, without long- term current use of insulin E11.9 [place] [address] 39[address]- 8924 Aug, Hypothyroid E03.9 [place] [address] 49[address]- 1717 Aug, Type 2 diabetes mellitus without complication, without long- term current use of insulin E11.9 ; COPD (chronic obstructive pulmonary disease ) J44.9 ; Hypothyroid E03.9 ; GERD (gastroesophageal reflux disease) K21.9 ; CVA (cerebral vascular accident) I63.9 ; Hyperlipidemia LDL goal <100 E78.5 ; Coronary artery disease of [place] heart with stable angina pectoris, unspecified vessel or lesion type I25.118 and Encounter for immunization Z23 [place] [address] 6[address]- 7423 Jul, Hypothyroid E03.9 and Hypercholesterolemia E78.00 [place] [address] 25014- 8447 Jul, Hypothyroid E03.9 ; Diabetes mellitus E11.9 and Hypercholesterolemia E78.0 [place] [address] 11953- 8224 Jul, Hypothyroid E03.9 ; Diabetes mellitus E11.9 and Hypercholesterolemia E78.0 [place] [address] 58320- 4551 May, CVA (cerebral vascular accident) I63.9 and Dizziness R42 [place] [address] 44667- 8964 May, Dehydration E86.0 ; CVA (cerebral vascular accident) I63.9 ; COPD (chronic obstructive pulmonary disease) J44.9 and Dizziness R42 [facility] [address] [place] [id number] [place] [address] 47241- 9001 March, Diabetes mellitus E11.9 ; Angina at rest I20.8 ; COPD ( chronic obstructive pulmonary disease) J44.9 ; GERD (gastroesophageal reflux disease) K21.9 ; Hypercholesterolemia E78.00 ; CVA (cerebral vascular accident) I63.9 and Hypothyroid E03.9 [facility] [address] [place] [id number] [place] [address] 25943- 2871 Jan, Hypothyroid E03.9 and Diabetes mellitus E11.9 [facility] [address] [place] [id number] [place] [address] 61339- 1878 Jan, [place] [address] [place] [id number] [place] [address] 25310- 9706 Jan, Diabetes mellitus E11.9 [facility] [address] [place] [id number] [place] [address] 48688- 1437 Jan, [facility] [address] [place] [id number] [place] [address] 12349- 0486 Dec, Diabetes mellitus E11.9 ; CVA (cerebral vascular accident) I63.9 ; COPD (chronic obstructive pulmonary disease) J44.9 ; Hypothyroid E03.9 ; GERD (gastroesophageal reflux disease) K21.9 and Hypercholesterolemia E78.00 [facility] [address] [place] [id number] [place] [address] 83307- 9367 Nov, Diabetes mellitus E11.9 [facility] [address] [id number] [address] 7914 Nov, [facility] [address] [place] [id number] [place] [address] 21926- 3185 Nov, [facility] [address] [place] [id number] [place] [address] 12232- 7783 Nov, [facility] [address] [place] [id number] [place] [address] 70811- 0771 Nov, Diabetes mellitus E11.9 [facility] [address] [place] [id number] [place] [address] 06798- 3119 Oct, Hypothyroid E03.9 [facility] [address] [place] [id number] [place] [address] 75609- 3461 Oct, Diabetes mellitus E11.9 [facility] [address] 05548- 4677 Oct, COPD (chronic obstructive pulmonary disease) J44.9 [facility] [address] [place] [id number] [place] [address] 40664- 5760 Oct, [place] [address] 00695- 5266 Sep, Diabetes mellitus E11.9 ; Angina at rest I20.8 ; Hypercholesterolemia E78.0 ; COPD (chronic obstructive pulmonary disease) J44.9 ; GERD (gastroesophageal reflux disease) K21.9 ; Dysuria R30.0 ; Acquired hypothyroidism E03.9 ; Encounter for immunization Z23 and Acute cystitis without hematuria N30.00 [place] [address] [place] [id number] [place] [address] 29432- 9138 Sep, Diabetes mellitus E11.9 [facility] [address] [place] [id number] [place] [address] 00215 -8243 Aug, [facility] [address] [place] [id number] [place] [address] 95043- 0591 Aug, Diabetes mellitus E11.9 [facility] [address] [place] [id number] [place] [address] 15339- 2751 Jun, Angina at rest I20.8 ; CVA (cerebral vascular accident) I63.9 ; Diabetes mellitus E11.9 ; Hypercholesterolemia E78.0 ; COPD (chronic obstructive pulmonary disease) J44.9 ; GERD (gastroesophageal reflux disease) K21.9 ; Peptic ulcer K27.9 and Hypothyroid E03.9 [facility] [address] [place] [id number] [place] [address] 75411- 2162 Jun, [facility] [address], [place] [address]- 5872 May, Diabetes mellitus E11.9 ; CVA (cerebral vascular accident) I63.9 ; COPD (chronic obstructive pulmonary disease) J44.9 and Angina at rest I20.8 [facility] [address] [id number] [address] May, [facility] [address] [place] [id number] [place] [address] 81209- 6056 May, Diabetes mellitus E11.9 ; Hypothyroid E03.9 ; Angina at rest I20.8 ; CVA (cerebral vascular accident) I63.9 ; COPD (chronic obstructive pulmonary disease) J44.9 ; GERD (gastroesophageal reflux disease) K21.9 and Hypercholesterolemia E78.0 [place] [address] [place] [id number] [place] [address] 77068- 5253 Apr, Hypercholesterolemia E78.0 [facility] [address] [place] [id number] [place] [address] 24363- 5760 Apr, [place] [address] [place] [id number] [place] [address] 86521- 7472 March, Diabetes mellitus E11.9 ; Hypothyroid E03.9 ; Hypercholesterolemia E78.0 ; COPD (chronic obstructive pulmonary disease) J44.9 ; GERD (gastroesophageal reflux disease) K21.9 ; Constipation K59.00 ; CVA ( cerebral vascular accident) I63.9 and Angina at rest I20.8 [place] [address], [place] [address]- 2327 March, [facility] [address] [place] [id number] [place] [address] 51761- 2613 Feb, [facility] [address] [place] [address]- 8438 Feb, [facility] [address] [place] [id number] [place] [address] 54670- 1065 Feb, [facility] [address] [place] [address] 87205- 7364 Jan, Diabetes mellitus E11.9 ; Hypercholesterolemia E78.0 ; CVA ( cerebral vascular accident) I63.9 ; GERD (gastroesophageal reflux disease) K21.9 ; Hypothyroid E03.9 and Angina at rest I20.8 [facility] [address] [place] [id number] [place] [address] 08217- 8665 Dec, Diabetes mellitus E11.9 ; Hypothyroid E03.9 ; Angina at rest I20.8 ; CVA (cerebral vascular accident) I63.9 ; Hypercholesterolemia E78.0 ; COPD (chronic obstructive pulmonary disease) J44.9 ; GERD ( gastroesophageal reflux disease) K21.9 and Dysuria R30.0 [facility] [address] [place] [id number] [place] [address] 14279- 0537 Nov, [place] [address] 73481- 8141 Nov, Hypothyroid E03.9 [facility] [address] [place] [id number] [place] [address] 69732- 0092 Nov, Hypothyroid E03.9 ; Angina at rest I20.8 ; CVA (cerebral vascular accident) I63.9 ; Hypercholesterolemia E78.0 ; COPD (chronic obstructive pulmonary disease) J44.9 ; GERD (gastroesophageal reflux disease) K21.9 and Diabetes E11.9 [facility] [address] [place] [id number] [place] [address] 49965 -4878 Oct, Upper respiratory symptom R09.89 [facility] [address] [place] [id number] [place] [address] 55716- 2887 Oct, [facility] [address] [place] [id number] [place] [address] 06178- 7121 Oct, [facility] [address] [place] [id number] [place] [address] 60145- 5195 Oct, [facility] [address] 54798- 2731 Aug, Diabetes mellitus 250.00 ; Encounter for immunization Z23 ; Hypothyroid E03.9 ; Angina at rest I20.8 ; CVA (cerebral vascular accident) I63.9 ; Hypercholesterolemia E78.0 ; COPD (chronic obstructive pulmonary disease ) J44.9 and GERD (gastroesophageal reflux disease) K21.9 [facility] [address] [place] [id number] [place] [address] 26719- 3281 Jul, [facility] [address] 17844- 0113 Jun, [facility] [address] 42754- 4852 Jun, [facility] [address] 13133- 7250 May, [facility] [address] 48863- 8163 May, Diabetes mellitus 250.00 ; Hypothyroidism 244.9 ; Angina at rest 413.9 ; CVA (cerebral infarction) 434.91 ; Hypercholesterolemia 272.0 ; COPD (chronic obstructive pulmonary disease) 496 and GERD (gastroesophageal reflux disease) 530.81 [facility] [address] [place] [id number] [place] [address] 71382- 8999 Oct, [facility] [address] [place] [id number] [place] [address] 08828- 9096 Oct, [facility] [address] 78227- 9819 Oct, [facility] [address] [place] [id number] [place] [address] 74596- 9614 Oct, [facility] [address] 96429- 4524 Sep, [facility] [address] [place] [id number] [place] [address] 24546- 3910 Aug, [facility] [address] 55517- 1836 15 Aug, 2010 [facility] [address] [place] [address] [address]- 2116 15 Aug, 2010 [facility] [address], [place] [address]- 5146 Jul, [facility] [address], [place] [address]- 6956 Jan, [facility] [address], [place] [address]- 5308 Oct, [facility] [address], [place] [address]- 6859 Oct, [facility] [address], [place] [address]- 5006 Sep, [facility] [address], [place] [address]- 9529 Apr, [facility] [address] [place] [address], [place] [address]- 3066 Dec, IMMUNIZATIONS No Known Immunizations SOCIAL HISTORY Never Assessed REASON FOR VISIT Update med list PLAN OF CARE VITAL SIGNS MEDICATIONS Medication Instructions Dosage Frequency Start Date End Date Duration Status Ranexa 1000 MG Orally Twice a day 1 tablet 12h Active Janumet 50-1000 mg Orally Twice a day 1 tablet with meals 12h 30 days Active NitroMist 400 MCG/SPRAY Translingual Once a day 1 spray under the tongue 24h Active Atorvastatin Calcium 40 mg Orally Once a day at HS 1 tablet Active Lancets test one time per day as directed Active Nystatin 994677 UNIT/GM Externally Twice a day 1 application to affected area 12h Dec, Active Farxiga 5 TAKE ONE TABLET BY MOUTH DAILY 30 Active Oxygen Portable oxygen concentrator Use 2L nc O2 when up ambulating Oct, Active Clopidogrel Bisulfate 75 MG Orally Once a day 1 tablet 24h Active Protonix 40 mg Orally twice a day 1 tablet 12h Active Levothyroxine Sodium 75 MCG Orally Once a day 1 tablet 24h 18 Nov, 2015 Active Janumet 50-1,000 TAKE ONE TABLET BY MOUTH TWICE A DAY 30 Not- Taking Isosorbide Mononitrate ER 60 MG Orally Once a day 1 tablet 24h Active Fenofibrate 160 MG Orally Once a day 1 tablet with a meal 24h Jan, Active Anyvite Ultra Test - In Vitro 3 times a day USE ONE STRIP TO CHECK GLUCOSE ONCE DAILY DIRECTED 8h Active Acetaminophen 500 MG Orally every 6 hrs 2 tablets 6h Active Aspirin 81 81 MG Orally Once a day 1 tablet 24h Active RESULTS No Results PROCEDURES No Known [...] lobe Pneumonia 02/24/16 Hospitalization History Chest Pain--[facility] 05/19/16 Hospitalization History Chest pain--[facility] 06/18/16 Hospitalization History Influenza & COPD exacerbation 12/21 Hospitalization History Cardiac Monitoring 01/2018 Hospitalization History [facility], tripped and hit head 04/2018
--- OUTSIDE RECORDS SUMMARY | 2018-07-19 12:46 | XMS REPORT ---
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 Active 327494910141299 Problem 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 Active 7922581531937 Problem History of CVA (cerebrovascular accident) Z86.73 Active 824538248 Problem Overweight (BMI 25.0-29.9) E66.3 Active 801699274 Problem Hospital discharge follow-up Z09 Active 085985343 Problem Osteopenia of spine M85.88 Active 056260468 Problem Former smoker Z87.891 Active 2706365 Problem GERD (gastroesophageal reflux disease) K21.9 Active 354082489 Problem Angina at rest I20.8 Active 39375193 Problem Hypothyroid E03.9 Active 51283782 Problem Constipation K59.00 Active 85978115 Problem COPD (chronic obstructive pulmonary disease) J44.9 Active 34423417 Problem Peptic ulcer K27.9 Active 85773866 ALLERGIES Substance Reaction Event Type Date Status Ultram hives Drug Allergy Jan, Active Fentanyl hives Drug Allergy Jan, Active ENCOUNTERS Encounter Location Date Diagnosis [facility] [address] 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 [place] [id number] [place] [address] 97181- 8580 March, Hypothyroid E03.9 [place] [address] [id number] [place] [address] 82983- 6764 March, Hypercholesterolemia E78.00 [place] [id number] [place] [address] 67934- 6685 March, Hypothyroid E03.9 [place] [id number] [place] [address] 49379- 1074 March, Hypercholesterolemia E78.00 [place] [address] [address] [id number] [place] [address] 25693- 2980 Feb, Hypercholesterolemia E78.00 [place] [address] [id number] [place] [address] 05404- 4479 Feb, Type 2 diabetes mellitus without complication, without long- term current use of insulin E11.9 [place] [id number] [place] [address] 05585- 0971 03 Feb, 2018 Hypothyroid E03.9 [place] [address] [address]- 6951 14 Jan, 2018 Hypothyroid E03.9 ; 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 ; Hospital discharge follow-up Z09 ; Type 2 diabetes mellitus without complication, without long-term current use of insulin E11.9 ; 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 and History of CVA (cerebrovascular accident) Z86.73 [place] [address] [address] Jan, [place] [address] [id number] [place] [address] 73843- 5507 Jan, [place] [address] [id number] [place] [address] 56687- 6362 Jan, Type 2 diabetes mellitus without complication, without long- term current use of insulin E11.9 [place] [id number] [place] [address] 55302- 1958 Dec, Hospital discharge follow-up Z09 ; COPD (chronic obstructive pulmonary disease) J44.9 ; Type 2 diabetes mellitus without complication, without long-term current use of insulin E11.9 ; Hypothyroid E03.9 and Vaginal discharge N89.8 [place] [id number] [place] [address] 37768- 3384 Dec, Hypothyroid E03.9 [place] [address] [id number] [place] [address] 24155- 4732 Dec, Type 2 diabetes mellitus without complication, without long- term current use of insulin E11.9 [place] [address] [address] 2[address] Nov, [place] [address] [address] 5976 Nov, [place] [address] [id number] [place] [address] 38288- 4269 Nov, Pneumonia of right lower lobe due to infectious organism J18.1 ; Orthopnea R06.01 ; COPD with acute exacerbation J44.1 and Fatigue, unspecified type R53.83 [place] [address] [address] Nov, [place] [address] [address] 1699 Nov, [place] [address] [address] 4388 Oct, Pneumonia of right lower lobe due to infectious organism J18.1 [place] [address] [address] 1163 Oct, Pneumonia of right lower lobe due to infectious organism J18.1 [place] [address] [address] 0703 Oct, Pneumonia of right lower lobe due to infectious organism J18.1 [place] [address] [address] 6870 Oct, COPD exacerbation J44.1 [place] [address] [address] 7295 Oct, [place] [address] [address] 8152 Oct, COPD exacerbation J44.1 [place] [address] [address] 2505 Oct, Encounter for immunization Z23 and COPD (chronic obstructive pulmonary disease) J44.9 [place] [id number] [address] 9[address] Oct, Medicare annual wellness visit, subsequent Z00.00 ; History of tobacco use Z87.891 ; Need for Zostavax administration Z23 ; Post-menopausal Z78.0 ; Screening for breast cancer Z12.31 ; Screening for colon cancer Z12.11 ; 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 and Encounter for immunization Z23 [place] [id number] [address] 81[address] Sep, Type 2 diabetes mellitus without complication, without long- term current use of insulin E11.9 [place] [id number] [address] 18[address] Sep, Type 2 diabetes mellitus without complication, without long- term current use of insulin E11.9 ; COPD (chronic obstructive pulmonary disease ) J44.9 ; Hypothyroid E03.9 ; GERD (gastroesophageal reflux disease) K21.9 ; CVA (cerebral vascular accident) I63.9 ; Hyperlipidemia LDL goal <100 E78.5 ; Coronary artery disease of [place] heart with stable angina pectoris, unspecified vessel or lesion type I25.118 and 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 [place] [address] 93535- 5274 Aug, Type 2 diabetes mellitus without complication, without long- term current use of insulin E11.9 [place] [address] [address] [id number] [place] [address] 80589- 8226 Aug, Hypothyroid E03.9 [place] [address] 13710- 4997 Aug, Type 2 diabetes mellitus without complication, without long- term current use of insulin E11.9 ; COPD (chronic obstructive pulmonary disease ) J44.9 ; Hypothyroid E03.9 ; GERD (gastroesophageal reflux disease) K21.9 ; CVA (cerebral vascular accident) I63.9 ; Hyperlipidemia LDL goal <100 E78.5 ; Coronary artery disease of [place] heart with stable angina pectoris, unspecified vessel or lesion type I25.118 and Encounter for immunization Z23 [place] [address] [id number] [place] [address] 48171- 3867 Jul, Hypothyroid E03.9 and Hypercholesterolemia E78.00 [place] [address] 74366- 0376 Jul, Hypothyroid E03.9 ; Diabetes mellitus E11.9 and Hypercholesterolemia E78.0 [place] [id number] [place] [address] 89132- 1825 Jul, Hypothyroid E03.9 ; Diabetes mellitus E11.9 and Hypercholesterolemia E78.0 [place] [address] [id number] [place] [address] 96238- 2185 May, CVA (cerebral vascular accident) I63.9 and Dizziness R42 [place] [address] 05175- 5546 May, Dehydration E86.0 ; CVA (cerebral vascular accident) I63.9 ; COPD (chronic obstructive pulmonary disease) J44.9 and Dizziness R42 [facility] [id number] [place] [address] [id number]- 5736 March, Diabetes mellitus E11.9 ; Angina at rest I20.8 ; COPD ( chronic obstructive pulmonary disease) J44.9 ; GERD (gastroesophageal reflux disease) K21.9 ; Hypercholesterolemia E78.00 ; CVA (cerebral vascular accident) I63.9 and Hypothyroid E03.9 [place] [address] [id number] [place] [address] 91632- 9592 Jan, Hypothyroid E03.9 and Diabetes mellitus E11.9 [place] [id number] [place] [address] 27521- 5713 Jan, [place] [id number] [place] [address] 33829- 2901 Jan, Diabetes mellitus E11.9 [facility] [id number] [place] [address] 70600- 3509 Jan, [facility] [id number] [place] [address] 77091- 3671 Dec, Diabetes mellitus E11.9 ; CVA (cerebral vascular accident) I63.9 ; COPD (chronic obstructive pulmonary disease) J44.9 ; Hypothyroid E03.9 ; GERD (gastroesophageal reflux disease) K21.9 and Hypercholesterolemia E78.00 [place] [address] [place] [id number] [place] [address] 85745- 2995 Nov, Diabetes mellitus E11.9 [facility] [id number] [place] [address] 01327- 5281 Nov, [facility] [id number] [place] [address] 97756- 2743 Nov, [facility] [id number] [place] [address] 47276- 9462 Nov, [facility] [id number] [place] [address] 61505- 9068 Nov, Diabetes mellitus E11.9 [facility] [address] [id number] [place] [address] 86437- 3807 Oct, Hypothyroid E03.9 [facility] [id number] [place] [address] 51958- 7257 Oct, Diabetes mellitus E11.9 [facility] [id number] [place] [address] 00930- 5347 Oct, COPD (chronic obstructive pulmonary disease) J44.9 [place] [address] [place] [address] [id number] [place] [address] 64638- 0264 Oct, [place] [address] [id number] [place] [address] 82053- 5380 Sep, Diabetes mellitus E11.9 ; Angina at rest I20.8 ; Hypercholesterolemia E78.0 ; COPD (chronic obstructive pulmonary disease) J44.9 ; GERD (gastroesophageal reflux disease) K21.9 ; Dysuria R30.0 ; Acquired hypothyroidism E03.9 ; Encounter for immunization Z23 and Acute cystitis without hematuria N30.00 [place] [id number] [place] [address] 26953- 5062 Sep, Diabetes mellitus E11.9 [facility] [id number] [place] [address] 63545 -5809 Aug, [facility] [id number] [place] [address] 84756- 7313 Aug, Diabetes mellitus E11.9 [place] [address] [place] [address] [id number] [place] [address] 04341- 3933 Jun, Angina at rest I20.8 ; CVA (cerebral vascular accident) I63.9 ; Diabetes mellitus E11.9 ; Hypercholesterolemia E78.0 ; COPD (chronic obstructive pulmonary disease) J44.9 ; GERD (gastroesophageal reflux disease) K21.9 ; Peptic ulcer K27.9 and Hypothyroid E03.9 [facility] [address] [address]- 1021 Jun, [facility] [id number] [place] [address] 26328- 0040 May, Diabetes mellitus E11.9 ; CVA (cerebral vascular accident) I63.9 ; COPD (chronic obstructive pulmonary disease) J44.9 and Angina at rest I20.8 [place] [address] [id number] [place] [address] 33189- 4631 May, [facility] [id number] [place] [address] 12973- 6241 May, Diabetes mellitus E11.9 ; Hypothyroid E03.9 ; Angina at rest I20.8 ; CVA (cerebral vascular accident) I63.9 ; COPD (chronic obstructive pulmonary disease) J44.9 ; GERD (gastroesophageal reflux disease) K21.9 and Hypercholesterolemia E78.0 [place] [address] [address] [id number] [place] [address] 09082- 8803 Apr, Hypercholesterolemia E78.0 [place] [address] [id number] [place] [address] 98669- 6813 Apr, [place] [address] [id number] [place] [address] 00664- 7768 March, Diabetes mellitus E11.9 ; Hypothyroid E03.9 ; Hypercholesterolemia E78.0 ; COPD (chronic obstructive pulmonary disease) J44.9 ; GERD (gastroesophageal reflux disease) K21.9 ; Constipation K59.00 ; CVA ( cerebral vascular accident) I63.9 and Angina at rest I20.8 [facility] [address] [address]- 6528 March, [place] [address] [id number] [place] [address] 04208- 6312 Feb, [facility] [address], [place] [address]- 7909 Feb, [place] [address] [address] [id number] [place] [address] 93557- 4000 Feb, [facility] [id number] [place] [address] 47013- 9800 Jan, Diabetes mellitus E11.9 ; Hypercholesterolemia E78.0 ; CVA ( cerebral vascular accident) I63.9 ; GERD (gastroesophageal reflux disease) K21.9 ; Hypothyroid E03.9 and Angina at rest I20.8 [place] [address] [address] [id number] [place] [address] 65719- 3170 Dec, Diabetes mellitus E11.9 ; Hypothyroid E03.9 ; Angina at rest I20.8 ; CVA (cerebral vascular accident) I63.9 ; Hypercholesterolemia E78.0 ; COPD (chronic obstructive pulmonary disease) J44.9 ; GERD ( gastroesophageal reflux disease) K21.9 and Dysuria R30.0 [place] [address] [id number] [place] [address] 93928- 5963 Nov, [place] [address] [address] [id number] [place] [address] 80481- 0619 Nov, Hypothyroid E03.9 [place] [address] [id number] [place] [address] 05867- 7490 Nov, Hypothyroid E03.9 ; Angina at rest I20.8 ; CVA (cerebral vascular accident) I63.9 ; Hypercholesterolemia E78.0 ; COPD (chronic obstructive pulmonary disease) J44.9 ; GERD (gastroesophageal reflux disease) K21.9 and Diabetes E11.9 [facility] [id number] [place] [address] 29561 -7033 Oct, Upper respiratory symptom R09.89 [facility] [address] 93553- 3943 Oct, [place] [id number] [place] [address] 91297- 8984 Oct, [facility] [id number] [place] [address] 55862- 9816 Oct, [facility] [id number] [place] [address] 821584- 5803 Aug, Diabetes mellitus 250.00 ; Encounter for immunization Z23 ; Hypothyroid E03.9 ; Angina at rest I20.8 ; CVA (cerebral vascular accident) I63.9 ; Hypercholesterolemia E78.0 ; COPD (chronic obstructive pulmonary disease ) J44.9 and GERD (gastroesophageal reflux disease) K21.9 [facility] [address] 71527- 5766 Jul, [facility] [address] 239789- 5614 Jun, [facility] [address] 962962- 1976 Jun, [facility] [address] 85552- 2120 May, [facility] [address] 17463- 0922 May, Diabetes mellitus 250.00 ; Hypothyroidism 244.9 ; Angina at rest 413.9 ; CVA (cerebral infarction) 434.91 ; Hypercholesterolemia 272.0 ; COPD (chronic obstructive pulmonary disease) 496 and GERD (gastroesophageal reflux disease) 530.81 [facility] [id number] [place] [address] 66488- 9331 Oct, [facility] [id number] [place] [address] 54294- 3024 Oct, [facility] [id number] [place] [address] 036288- 0901 Oct, [facility] [address] 431640- 0650 Oct, [facility] [id number] [place] [address] 06312- 3413 Sep, [facility] [address] 691993- 1240 Aug, [facility] [id number] [address]- 3516 Aug, [facility] [address], [place] [address]- 8786 Aug, [facility] [address], [place] [address] 2546 Jul, [facility] [id number] [place] [address] 84186- 9474 Jan, [facility] [address] [place] [address] 31651- 8437 Oct, [facility] [id number] [place] [address] 14024 2546 Oct, [facility] [address], [place] [address] 2546 Sep, [facility] [address], [place] [address] 2546 Apr, [facility] [address], [place] [address]- 9478 Dec, IMMUNIZATIONS No Known Immunizations SOCIAL HISTORY Never Assessed REASON FOR VISIT Thyroid-AHarrymanRN, [facility] follow up- Chest pain. hospitalized 01/18-01/05/18 PLAN OF CARE Activity Details Follow Up March and April DM Reason:DM VITAL SIGNS Height 60 in 2018-01-14 Weight 155.1 lbs 2018-01-14 Temperature 97.8 degrees Fahrenheit 2018-01-14 Heart Rate 84 bpm 2018-01-14 Respiratory Rate 20 2018-01-14 BMI 30.29 kg/m2 2018-01-14 Blood pressure systolic 124 mmHg 2018-01-14 Blood pressure diastolic 76 mmHg 2018-01-14 MEDICATIONS Medication Instructions Dosage Frequency Start Date End Date Duration Status Synlogic Ultra Test - In Vitro 3 times a day USE ONE STRIP TO CHECK GLUCOSE ONCE DAILY DIRECTED 8h Active Protonix 40 mg Orally twice a day 1 tablet 12h Active Atorvastatin Calcium 40 mg Orally Once a day at HS 1 tablet Active Glucometer 1 glucometer Please dispense 1 insurance compatible glucometer kit Jan, Active Lancets test one time per day as directed Active Janumet 50-1000 mg Orally Twice a day 1 tablet with meals 12h 30 days Active NitroMist 400 MCG/SPRAY Translingual Once a day 1 spray under the tongue 24h Active Levothyroxine Sodium 75 mcg Orally Once a day 1 tablet 24h 18 Nov, 2015 60 days Active Ranexa 1000 MG Orally Twice a day 1 tablet 12h Active Aspirin 81 81 MG Orally Once a day 1 tablet 24h Active Isosorbide Mononitrate ER 60 MG Orally Once a day 1 tablet 24h Active Farxiga 5 TAKE ONE TABLET BY MOUTH DAILY 30 Active Losartan Potassium 50 MG Orally Once a day 1 tablet 24h Active Fenofibrate 160 MG Orally Once a day 1 tablet with a meal 24h Jan, Active Clopidogrel Bisulfate 75 MG Orally Once a day 1 tablet 24h Active Nystatin 539916 UNIT/GM Externally Twice a day 1 application to affected area 12h Dec, Active Acetaminophen 500 MG Orally every 6 hrs 2 tablets 6h Active Oxygen Portable oxygen concentrator Use 2L nc O2 when up ambulating Oct, Active RESULTS Name Result Date Reference Range A1C (IN HOUSE) 2018-01-14 A1C IN HOUSE 6.7 4.3 - 5.6 % Previous A1c 6.2 Lot [id number] Exp date 09/2019 PROCEDURES Procedure Date Ordered Result Body Site GLYCATED HEMOGLOBIN TEST January 14, 2018 [facility] VISIT ESTABLISHED PATIENT January 14, 2018 INSTRUCTIONS MEDICATIONS ADMINISTERED No Known Medications MEDICAL [...] lobe Pneumonia 02/24/16 Hospitalization History Chest Pain--[facility] 05/19/16 Hospitalization History Chest pain--VC 06/18/16 Hospitalization History Influenza & COPD exacerbation 12/21 Hospitalization History Cardiac Monitoring 01/2018 Hospitalization History Via [facility], tripped and hit head 04/2018
--- OUTSIDE RECORDS SUMMARY | 2018-07-19 12:47 | XMS REPORT ---
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 Active [id number] Problem 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 Active 8677614472610 Problem History of CVA (cerebrovascular accident) Z86.73 Active 169162447 Problem Overweight (BMI 25.0-29.9) E66.3 Active 575081506 Problem Hospital discharge follow-up Z09 Active 742856489 Problem Osteopenia of spine M85.88 Active 094767629 Problem Former smoker Z87.891 Active 0303526 Problem GERD (gastroesophageal reflux disease) K21.9 Active 883019246 Problem Angina at rest I20.8 Active 36873558 Problem Hypothyroid E03.9 Active 30647029 Problem Constipation K59.00 Active 60147425 Problem COPD (chronic obstructive pulmonary disease) J44.9 Active 01847132 Problem Peptic ulcer K27.9 Active 17139376 ALLERGIES No Information ENCOUNTERS Encounter Location Date Diagnosis [facility] [address] [facility] [id number] [address] Apr, [facility] [address] [facility] [id number] [address] Apr, Type 2 diabetes mellitus without complication, without long- term current use of insulin E11.9 ; Hypothyroid E03.9 ; Hyperlipidemia LDL goal <100 E78.5 ; Overweight (BMI 25.0-29.9) E66.3 ; Vaginal candidiasis B37.3 ; COPD (chronic obstructive pulmonary disease) J44.9 ; CVA (cerebral vascular accident) I63.9 ; GERD (gastroesophageal reflux disease) K21.9 ; Angina at rest I20.8 and 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 [place] [address] [address] March, Hypothyroid E03.9 [place] [address] 38054- 2961 March, Hypercholesterolemia E78.00 [place] [address] 06853- 8718 March, Hypothyroid E03.9 [place] [address] 15819- 8588 March, Hypercholesterolemia E78.00 [place] [address] 26116- 3633 Feb, Hypercholesterolemia E78.00 [place] [address] 16894- 5352 Feb, Type 2 diabetes mellitus without complication, without long- term current use of insulin E11.9 [place] [address] [place] [id number] [place] [address] 69269- 4742 03 Feb, 2018 Hypothyroid E03.9 [place] [address] [place] [id number] [place] [address] 58567- 7085 14 Jan, 2018 Hypothyroid E03.9 ; 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 ; Hospital discharge follow-up Z09 ; Type 2 diabetes mellitus without complication, without long-term current use of insulin E11.9 ; 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 and History of CVA (cerebrovascular accident) Z86.73 [place] [address] [place] [address] Jan, [place] [address] [place] [id number] [place] [address] 05902- 1550 Jan, [place] [address] [place] [id number] [place] [address] 98604- 5463 Jan, Type 2 diabetes mellitus without complication, without long- term current use of insulin E11.9 [place] [address] [place] [id number] [place] [address] 07779- 1338 Dec, Hospital discharge follow-up Z09 ; COPD (chronic obstructive pulmonary disease) J44.9 ; Type 2 diabetes mellitus without complication, without long-term current use of insulin E11.9 ; Hypothyroid E03.9 and Vaginal discharge N89.8 [place] [address] [place] [id number] [place] [address] 65103- 7341 Dec, Hypothyroid E03.9 [place] [address] [place] [id number] [place] [address] 82840- 0045 Dec, Type 2 diabetes mellitus without complication, without long- term current use of insulin E11.9 [place] [address] [place] [id number] [place] [address] 65113- 9198 Nov, [place] [address] [place] [id number] [place] [address] 52419- 9046 Nov, [place] [address] [place] [id number] [place] [address] 45174- 1669 Nov, Pneumonia of right lower lobe due to infectious organism J18.1 ; Orthopnea R06.01 ; COPD with acute exacerbation J44.1 and Fatigue, unspecified type R53.83 [place] [address] [place] [id number] [place] [address] 63791- 5613 Nov, [place] [address] [place] [id number] [place] [address] 90455- 7626 Nov, [place] [address] [place] [id number] [place] [address] 61279- 1195 Oct, Pneumonia of right lower lobe due to infectious organism J18.1 [place] [address] [address] Oct, Pneumonia of right lower lobe due to infectious organism J18.1 [place] [address] [address]101 Oct, Pneumonia of right lower lobe due to infectious organism J18.1 [place] [id number] [place] [address] 67001- 6663 Oct, COPD exacerbation J44.1 [place] [id number] [place] [address] 46543- 7512 Oct, [place] [address] [place] [id number] [place] [address] 96025- 1795 Oct, COPD exacerbation J44.1 [place] [id number] [place] [address] 10463- 0155 Oct, Encounter for immunization Z23 and COPD (chronic obstructive pulmonary disease) J44.[address] [place] [address] 67685- 7703 Oct, Medicare annual wellness visit, subsequent Z00.00 ; History of tobacco use Z87.891 ; Need for Zostavax administration Z23 ; Post-menopausal Z78.0 ; Screening for breast cancer Z12.31 ; Screening for colon cancer Z12.11 ; 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 and Encounter for immunization Z23 [address] [address] Sep, Type 2 diabetes mellitus without complication, without long- term current use of insulin E11.9 [address] [place] [address] 59693- 2155 Sep, Type 2 diabetes mellitus without complication, without long- term current use of insulin E11.9 ; COPD (chronic obstructive pulmonary disease ) J44.9 ; Hypothyroid E03.9 ; GERD (gastroesophageal reflux disease) K21.9 ; CVA (cerebral vascular accident) I63.9 ; Hyperlipidemia LDL goal <100 E78.5 ; Coronary artery disease of [place] heart with stable angina pectoris, unspecified vessel or lesion type I25.118 and 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 [place] [address] 6[address]- 0017 Aug, Type 2 diabetes mellitus without complication, without long- term current use of insulin E11.9 [place] [address] 39185- 8876 Aug, Hypothyroid E03.9 [place] [address] 67697- 6012 Aug, Type 2 diabetes mellitus without complication, without long- term current use of insulin E11.9 ; COPD (chronic obstructive pulmonary disease ) J44.9 ; Hypothyroid E03.9 ; GERD (gastroesophageal reflux disease) K21.9 ; CVA (cerebral vascular accident) I63.9 ; Hyperlipidemia LDL goal <100 E78.5 ; Coronary artery disease of [place] heart with stable angina pectoris, unspecified vessel or lesion type I25.118 and Encounter for immunization Z23 [place] [address] 18487- 0630 Jul, Hypothyroid E03.9 and Hypercholesterolemia E78.00 [place] [address] 22948- 9994 Jul, Hypothyroid E03.9 ; Diabetes mellitus E11.9 and Hypercholesterolemia E78.0 [place] [address] 50990- 9949 Jul, Hypothyroid E03.9 ; Diabetes mellitus E11.9 and Hypercholesterolemia E78.0 [place] [address] 63436- 4003 May, CVA (cerebral vascular accident) I63.9 and Dizziness R42 [place] [address] 79807- 8232 May, Dehydration E86.0 ; CVA (cerebral vascular accident) I63.9 ; COPD (chronic obstructive pulmonary disease) J44.9 and Dizziness R42 [facility] [address] [place] [id number] [place] [address] 00355- 5582 March, Diabetes mellitus E11.9 ; Angina at rest I20.8 ; COPD ( chronic obstructive pulmonary disease) J44.9 ; GERD (gastroesophageal reflux disease) K21.9 ; Hypercholesterolemia E78.00 ; CVA (cerebral vascular accident) I63.9 and Hypothyroid E03.9 [facility] [address] [place] [id number] [place] [address] 71832- 9138 Jan, Hypothyroid E03.9 and Diabetes mellitus E11.9 [facility] [address] [place] [id number] [place] [address] 90441- 4684 Jan, [place] [address] [place] [id number] [place] [address] 76533- 3184 Jan, Diabetes mellitus E11.9 [facility] [address] [place] [id number] [place] [address] 45010- 5226 Jan, [facility] [address] [place] [id number] [place] [address] 32332- 0365 Dec, Diabetes mellitus E11.9 ; CVA (cerebral vascular accident) I63.9 ; COPD (chronic obstructive pulmonary disease) J44.9 ; Hypothyroid E03.9 ; GERD (gastroesophageal reflux disease) K21.9 and Hypercholesterolemia E78.00 [facility] [address] [place] [id number] [place] [address] 19853- 4416 Nov, Diabetes mellitus E11.9 [facility] [address] [id number] [address]- 6533 Nov, [facility] [address] [place] [id number] [place] [address] 34945- 9182 Nov, [facility] [address] [place] [id number] [place] [address] 55121- 5073 Nov, [facility] [address] [place] [id number] [place] [address] 24757- 8196 Nov, Diabetes mellitus E11.9 [facility] [address] [place] [id number] [place] [address] 72179- 7343 Oct, Hypothyroid E03.9 [facility] [address] [place] [id number] [place] [address] 59375- 1264 Oct, Diabetes mellitus E11.9 [facility] [address] 36884- 1393 Oct, COPD (chronic obstructive pulmonary disease) J44.9 [facility] [address] [place] [id number] [place] [address] 65703- 9106 Oct, [place] [address] 41648- 0515 Sep, Diabetes mellitus E11.9 ; Angina at rest I20.8 ; Hypercholesterolemia E78.0 ; COPD (chronic obstructive pulmonary disease) J44.9 ; GERD (gastroesophageal reflux disease) K21.9 ; Dysuria R30.0 ; Acquired hypothyroidism E03.9 ; Encounter for immunization Z23 and Acute cystitis without hematuria N30.00 [place] [address] [place] [id number] [place] [address] 17681- 7972 Sep, Diabetes mellitus E11.9 [facility] [address] [place] [id number] [place] [address] 26537 -4017 Aug, [facility] [address] [place] [id number] [place] [address] 39944- 5197 Aug, Diabetes mellitus E11.9 [facility] [address] [place] [id number] [place] [address] 47260- 0281 Jun, Angina at rest I20.8 ; CVA (cerebral vascular accident) I63.9 ; Diabetes mellitus E11.9 ; Hypercholesterolemia E78.0 ; COPD (chronic obstructive pulmonary disease) J44.9 ; GERD (gastroesophageal reflux disease) K21.9 ; Peptic ulcer K27.9 and Hypothyroid E03.9 [facility] [address] [place] [id number] [place] [address] 97809- 3951 Jun, [facility] [address] [address]- 6886 May, Diabetes mellitus E11.9 ; CVA (cerebral vascular accident) I63.9 ; COPD (chronic obstructive pulmonary disease) J44.9 and Angina at rest I20.8 [facility] [address] [id number] [address]- 6648 May, [facility] [address] [place] [id number] [place] [address] 79233- 7201 May, Diabetes mellitus E11.9 ; Hypothyroid E03.9 ; Angina at rest I20.8 ; CVA (cerebral vascular accident) I63.9 ; COPD (chronic obstructive pulmonary disease) J44.9 ; GERD (gastroesophageal reflux disease) K21.9 and Hypercholesterolemia E78.0 [place] [address] [place] [id number] [place] [address] 56634- 5385 Apr, Hypercholesterolemia E78.0 [facility] [address] [place] [id number] [place] [address] 16252- 8087 Apr, [place] [address] [place] [id number] [place] [address] 67408- 2156 March, Diabetes mellitus E11.9 ; Hypothyroid E03.9 ; Hypercholesterolemia E78.0 ; COPD (chronic obstructive pulmonary disease) J44.9 ; GERD (gastroesophageal reflux disease) K21.9 ; Constipation K59.00 ; CVA ( cerebral vascular accident) I63.9 and Angina at rest I20.8 [place] [address] [address]- 9184 March, [facility] [address] [place] [id number] [place] [address] 69293- 3069 Feb, [facility] [address] [place] [id number] [address]- 3488 Feb, [facility] [address] [place] [id number] [place] [address] 54841- 9169 Feb, [facility] [address] [place] [address] 06373- 7934 Jan, Diabetes mellitus E11.9 ; Hypercholesterolemia E78.0 ; CVA ( cerebral vascular accident) I63.9 ; GERD (gastroesophageal reflux disease) K21.9 ; Hypothyroid E03.9 and Angina at rest I20.8 [facility] [address] [place] [id number] [place] [address] 67137- 0153 Dec, Diabetes mellitus E11.9 ; Hypothyroid E03.9 ; Angina at rest I20.8 ; CVA (cerebral vascular accident) I63.9 ; Hypercholesterolemia E78.0 ; COPD (chronic obstructive pulmonary disease) J44.9 ; GERD ( gastroesophageal reflux disease) K21.9 and Dysuria R30.0 [facility] [address] [place] [id number] [place] [address] 72773- 6370 Nov, [place] [address] 80343- 1479 Nov, Hypothyroid E03.9 [facility] [address] [place] [id number] [place] [address] 67036- 2148 Nov, Hypothyroid E03.9 ; Angina at rest I20.8 ; CVA (cerebral vascular accident) I63.9 ; Hypercholesterolemia E78.0 ; COPD (chronic obstructive pulmonary disease) J44.9 ; GERD (gastroesophageal reflux disease) K21.9 and Diabetes E11.9 [facility] [address] [place] [id number] [place] [address] 55973 -8677 Oct, Upper respiratory symptom R09.89 [facility] [address] [place] [id number] [place] [address] 02960- 8181 Oct, [facility] [address] [place] [id number] [place] [address] 04533- 6542 Oct, [facility] [address] [place] [id number] [place] [address] 34381- 5359 Oct, [facility] [address] 83245- 7525 Aug, Diabetes mellitus 250.00 ; Encounter for immunization Z23 ; Hypothyroid E03.9 ; Angina at rest I20.8 ; CVA (cerebral vascular accident) I63.9 ; Hypercholesterolemia E78.0 ; COPD (chronic obstructive pulmonary disease ) J44.9 and GERD (gastroesophageal reflux disease) K21.9 [facility] [address] [place] [id number] [place] [address] 01059- 8647 Jul, [facility] [address] 71525- 7407 Jun, [facility] [address] 18399- 9558 Jun, [facility] [address] 22895- 5938 May, [facility] [address] 05923- 9395 May, Diabetes mellitus 250.00 ; Hypothyroidism 244.9 ; Angina at rest 413.9 ; CVA (cerebral infarction) 434.91 ; Hypercholesterolemia 272.0 ; COPD (chronic obstructive pulmonary disease) 496 and GERD (gastroesophageal reflux disease) 530.81 [facility] [address] [place] [id number] [place] [address] 07917- 3223 Oct, [facility] [address] [place] [id number] [place] [address] 10229- 1188 Oct, [facility] [address] 71656- 9160 Oct, [facility] [address] [place] [id number] [place] [address] 38037- 2945 Oct, [facility] [address] 64882- 8081 Sep, [facility] [address] [place] [id number] [place] [address] 76072- 3921 Aug, [facility] [address] 49959- 8626 15 Aug, 2010 [facility] [address] [place] [id number] [address]- 8489 15 Aug, 2010 [facility] [address] [place] [id number] [address]- 4562 13 Jul, 2010 [facility] [address] [place] [id number] [address]- 5270 15 Jan, 2010 [facility] [address] [address]- 8086 Oct, [facility] [address] [address]- 0110 Oct, [facility] [address], [place] [address]- 3792 Sep, [facility] [address] [place] [id number] [address]- 9091 Apr, [facility] [address] [place] [id number] [address]- 3017 Dec, IMMUNIZATIONS No Known Immunizations SOCIAL HISTORY Never Assessed REASON FOR VISIT 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
--- OUTSIDE RECORDS SUMMARY | 2018-07-19 12:47 | XMS REPORT ---
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 Active [id number] Problem 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 Active 6661735204885 Problem History of CVA (cerebrovascular accident) Z86.73 Active 978691390 Problem Overweight (BMI 25.0-29.9) E66.3 Active 043941342 Problem Hospital discharge follow-up Z09 Active 116777444 Problem Osteopenia of spine M85.88 Active 855680597 Problem Former smoker Z87.891 Active 8465756 Problem GERD (gastroesophageal reflux disease) K21.9 Active 862087227 Problem Angina at rest I20.8 Active 29825692 Problem Hypothyroid E03.9 Active 93370177 Problem Constipation K59.00 Active 30346552 Problem COPD (chronic obstructive pulmonary disease) J44.9 Active 78965467 Problem Peptic ulcer K27.9 Active 35494420 ALLERGIES No Information ENCOUNTERS Encounter Location Date Diagnosis [facility] [address] [facility] [id number] [address] Apr, [facility] [address] [facility] [id number] [address] Apr, Type 2 diabetes mellitus without complication, without long- term current use of insulin E11.9 ; Hypothyroid E03.9 ; Hyperlipidemia LDL goal <100 E78.5 ; Overweight (BMI 25.0-29.9) E66.3 ; Vaginal candidiasis B37.3 ; COPD (chronic obstructive pulmonary disease) J44.9 ; CVA (cerebral vascular accident) I63.9 ; GERD (gastroesophageal reflux disease) K21.9 ; Angina at rest I20.8 and 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 [place] [address] [address] March, Hypothyroid E03.9 [place] [address] 55755- 5092 March, Hypercholesterolemia E78.00 [place] [address] 82781- 0808 March, Hypothyroid E03.9 [place] [address] 16319- 3047 March, Hypercholesterolemia E78.00 [place] [address] 71532- 2425 Feb, Hypercholesterolemia E78.00 [place] [address] 84444- 5359 Feb, Type 2 diabetes mellitus without complication, without long- term current use of insulin E11.9 [place] [address] [place] [id number] [place] [address] 30172- 6560 03 Feb, 2018 Hypothyroid E03.9 [place] [address] [place] [id number] [place] [address] 89673- 9144 14 Jan, 2018 Hypothyroid E03.9 ; 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 ; Hospital discharge follow-up Z09 ; Type 2 diabetes mellitus without complication, without long-term current use of insulin E11.9 ; 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 and History of CVA (cerebrovascular accident) Z86.73 [place] [address] [place] [address] Jan, [place] [address] [place] [id number] [place] [address] 27318- 5546 Jan, [place] [address] [place] [id number] [place] [address] 68943- 9777 Jan, Type 2 diabetes mellitus without complication, without long- term current use of insulin E11.9 [place] [address] [place] [id number] [place] [address] 52550- 2862 Dec, Hospital discharge follow-up Z09 ; COPD (chronic obstructive pulmonary disease) J44.9 ; Type 2 diabetes mellitus without complication, without long-term current use of insulin E11.9 ; Hypothyroid E03.9 and Vaginal discharge N89.8 [place] [address] [place] [id number] [place] [address] 94217- 2180 Dec, Hypothyroid E03.9 [place] [address] [place] [id number] [place] [address] 86525- 8718 Dec, Type 2 diabetes mellitus without complication, without long- term current use of insulin E11.9 [place] [address] [place] [id number] [place] [address] 78634- 2778 Nov, [place] [address] [place] [id number] [place] [address] 39145- 9863 Nov, [place] [address] [place] [id number] [place] [address] 10129- 8956 Nov, Pneumonia of right lower lobe due to infectious organism J18.1 ; Orthopnea R06.01 ; COPD with acute exacerbation J44.1 and Fatigue, unspecified type R53.83 [place] [address] [place] [id number] [place] [address] 23005- 9194 Nov, [place] [address] [place] [id number] [place] [address] 86522- 8482 Nov, [place] [address] [place] [id number] [place] [address] 28824- 9170 Oct, Pneumonia of right lower lobe due to infectious organism J18.1 [place] [address], [place] [address] 97[address] Oct, Pneumonia of right lower lobe due to infectious organism J18.1 [place] [address], [place] [address] 2445 Oct, Pneumonia of right lower lobe due to infectious organism J18.1 [place] [id number] [place] [address] 69945- 1640 Oct, COPD exacerbation J44.1 [place] [id number] [place] [address] 18979- 2621 Oct, [place] [address] [place] [id number] [place] [address] 71118- 2249 Oct, COPD exacerbation J44.1 [place] [id number] [place] [address] 93074- 2908 Oct, Encounter for immunization Z23 and COPD (chronic obstructive pulmonary disease) J44.[address] [place] [address] 92564- 1736 Oct, Medicare annual wellness visit, subsequent Z00.00 ; History of tobacco use Z87.891 ; Need for Zostavax administration Z23 ; Post-menopausal Z78.0 ; Screening for breast cancer Z12.31 ; Screening for colon cancer Z12.11 ; 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 and Encounter for immunization Z23 [address] [address] Sep, Type 2 diabetes mellitus without complication, without long- term current use of insulin E11.9 [id number] [place] [address] 27320- 9766 Sep, Type 2 diabetes mellitus without complication, without long- term current use of insulin E11.9 ; COPD (chronic obstructive pulmonary disease ) J44.9 ; Hypothyroid E03.9 ; GERD (gastroesophageal reflux disease) K21.9 ; CVA (cerebral vascular accident) I63.9 ; Hyperlipidemia LDL goal <100 E78.5 ; Coronary artery disease of hoh heart with stable angina pectoris, unspecified vessel or lesion type I25.118 and 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 [place] [address] 88369- 4499 Aug, Type 2 diabetes mellitus without complication, without long- term current use of insulin E11.9 [place] [address] 89434- 8558 Aug, Hypothyroid E03.9 [place] [address] 66744- 1476 Aug, Type 2 diabetes mellitus without complication, without long- term current use of insulin E11.9 ; COPD (chronic obstructive pulmonary disease ) J44.9 ; Hypothyroid E03.9 ; GERD (gastroesophageal reflux disease) K21.9 ; CVA (cerebral vascular accident) I63.9 ; Hyperlipidemia LDL goal <100 E78.5 ; Coronary artery disease of hoh heart with stable angina pectoris, unspecified vessel or lesion type I25.118 and Encounter for immunization Z23 [place] [address] 93357- 2396 Jul, Hypothyroid E03.9 and Hypercholesterolemia E78.00 [place] [address] 88921- 5793 Jul, Hypothyroid E03.9 ; Diabetes mellitus E11.9 and Hypercholesterolemia E78.0 [place] [address] 62045- 7241 Jul, Hypothyroid E03.9 ; Diabetes mellitus E11.9 and Hypercholesterolemia E78.0 [place] [address] 77929- 7917 May, CVA (cerebral vascular accident) I63.9 and Dizziness R42 [place] [address] 51600- 4313 May, Dehydration E86.0 ; CVA (cerebral vascular accident) I63.9 ; COPD (chronic obstructive pulmonary disease) J44.9 and Dizziness R42 [facility] [address] [place] [id number] [place] [address] 95982- 1642 March, Diabetes mellitus E11.9 ; Angina at rest I20.8 ; COPD ( chronic obstructive pulmonary disease) J44.9 ; GERD (gastroesophageal reflux disease) K21.9 ; Hypercholesterolemia E78.00 ; CVA (cerebral vascular accident) I63.9 and Hypothyroid E03.9 [facility] [address] [place] [id number] [place] [address] 30312- 4287 Jan, Hypothyroid E03.9 and Diabetes mellitus E11.9 [facility] [address] [place] [id number] [place] [address] 98016- 8814 Jan, [place] [address] [place] [id number] [place] [address] 87068- 5875 Jan, Diabetes mellitus E11.9 [facility] [address] [place] [id number] [place] [address] 30429- 0292 Jan, [facility] [address] [place] [id number] [place] [address] 41815- 5690 Dec, Diabetes mellitus E11.9 ; CVA (cerebral vascular accident) I63.9 ; COPD (chronic obstructive pulmonary disease) J44.9 ; Hypothyroid E03.9 ; GERD (gastroesophageal reflux disease) K21.9 and Hypercholesterolemia E78.00 [facility] [address] [place] [id number] [place] [address] 32361- 3083 Nov, Diabetes mellitus E11.9 [facility] [address] [place] [id number] [address] 3558 Nov, [facility] [address] [place] [id number] [place] [address] 86460- 2497 Nov, [facility] [address] [place] [id number] [place] [address] 64746- 3205 Nov, [facility] [address] [place] [id number] [place] [address] 25027- 5451 Nov, Diabetes mellitus E11.9 [facility] [address] [place] [id number] [place] [address] 73799- 7292 Oct, Hypothyroid E03.9 [facility] [address] [place] [id number] [place] [address] 90184- 1920 Oct, Diabetes mellitus E11.9 [facility] [address] 93306- 7787 Oct, COPD (chronic obstructive pulmonary disease) J44.9 [facility] [address] [place] [id number] [place] [address] 14515- 7025 Oct, [place] [address] 95350- 5184 Sep, Diabetes mellitus E11.9 ; Angina at rest I20.8 ; Hypercholesterolemia E78.0 ; COPD (chronic obstructive pulmonary disease) J44.9 ; GERD (gastroesophageal reflux disease) K21.9 ; Dysuria R30.0 ; Acquired hypothyroidism E03.9 ; Encounter for immunization Z23 and Acute cystitis without hematuria N30.00 [place] [address] [place] [id number] [place] [address] 82669- 7072 Sep, Diabetes mellitus E11.9 [facility] [address] [place] [id number] [place] [address] 79557 -4352 Aug, [facility] [address] [place] [id number] [place] [address] 68551- 8613 Aug, Diabetes mellitus E11.9 [facility] [address] [place] [id number] [place] [address] 74200- 4658 Jun, Angina at rest I20.8 ; CVA (cerebral vascular accident) I63.9 ; Diabetes mellitus E11.9 ; Hypercholesterolemia E78.0 ; COPD (chronic obstructive pulmonary disease) J44.9 ; GERD (gastroesophageal reflux disease) K21.9 ; Peptic ulcer K27.9 and Hypothyroid E03.9 [facility] [address] [place] [id number] [place] [address] 84121- 0797 Jun, [facility] [address], [place] [address]- 0823 May, Diabetes mellitus E11.9 ; CVA (cerebral vascular accident) I63.9 ; COPD (chronic obstructive pulmonary disease) J44.9 and Angina at rest I20.8 [facility] [address] [place] [id number] [address]- 0179 May, [facility] [address] [place] [id number] [place] [address] 66081- 6092 May, Diabetes mellitus E11.9 ; Hypothyroid E03.9 ; Angina at rest I20.8 ; CVA (cerebral vascular accident) I63.9 ; COPD (chronic obstructive pulmonary disease) J44.9 ; GERD (gastroesophageal reflux disease) K21.9 and Hypercholesterolemia E78.0 [place] [address] [place] [id number] [place] [address] 57966- 1640 Apr, Hypercholesterolemia E78.0 [facility] [address] [place] [id number] [place] [address] 62084- 3491 Apr, [place] [address] [place] [id number] [place] [address] 75480- 8431 March, Diabetes mellitus E11.9 ; Hypothyroid E03.9 ; Hypercholesterolemia E78.0 ; COPD (chronic obstructive pulmonary disease) J44.9 ; GERD (gastroesophageal reflux disease) K21.9 ; Constipation K59.00 ; CVA ( cerebral vascular accident) I63.9 and Angina at rest I20.8 [place] [address], [place] [address]- 8293 March, [facility] [address] [place] [id number] [place] [address] 41521- 3384 Feb, [facility] [address] [place] [id number] [address]- 2172 Feb, [facility] [address] [place] [id number] [place] [address] 21764- 6173 Feb, [facility] [id number] [place] [address] 49332- 6412 Jan, Diabetes mellitus E11.9 ; Hypercholesterolemia E78.0 ; CVA ( cerebral vascular accident) I63.9 ; GERD (gastroesophageal reflux disease) K21.9 ; Hypothyroid E03.9 and Angina at rest I20.8 [facility] [address] [place] [id number] [place] [address] 07603- 7867 Dec, Diabetes mellitus E11.9 ; Hypothyroid E03.9 ; Angina at rest I20.8 ; CVA (cerebral vascular accident) I63.9 ; Hypercholesterolemia E78.0 ; COPD (chronic obstructive pulmonary disease) J44.9 ; GERD ( gastroesophageal reflux disease) K21.9 and Dysuria R30.0 [facility] [address] [place] [id number] [place] [address] 02074- 5985 Nov, [place] [address] 04155- 3609 Nov, Hypothyroid E03.9 [facility] [address] [place] [id number] [place] [address] 98689- 3228 Nov, Hypothyroid E03.9 ; Angina at rest I20.8 ; CVA (cerebral vascular accident) I63.9 ; Hypercholesterolemia E78.0 ; COPD (chronic obstructive pulmonary disease) J44.9 ; GERD (gastroesophageal reflux disease) K21.9 and Diabetes E11.9 [facility] [address] [place] [id number] [place] [address] 67389 -8549 Oct, Upper respiratory symptom R09.89 [facility] [address] [place] [id number] [place] [address] 18948- 5971 Oct, [facility] [address] [place] [id number] [place] [address] 85767- 5561 Oct, [facility] [address] [place] [id number] [place] [address] 06399- 3711 Oct, [facility] [address] 28140- 9787 Aug, Diabetes mellitus 250.00 ; Encounter for immunization Z23 ; Hypothyroid E03.9 ; Angina at rest I20.8 ; CVA (cerebral vascular accident) I63.9 ; Hypercholesterolemia E78.0 ; COPD (chronic obstructive pulmonary disease ) J44.9 and GERD (gastroesophageal reflux disease) K21.9 [facility] [address] [place] [id number] [place] [address] 64634- 2679 Jul, [facility] [address] 04280- 2633 Jun, [facility] [address] 72460- 5137 Jun, [facility] [address] 87873- 7130 May, [facility] [address] 75120- 7978 May, Diabetes mellitus 250.00 ; Hypothyroidism 244.9 ; Angina at rest 413.9 ; CVA (cerebral infarction) 434.91 ; Hypercholesterolemia 272.0 ; COPD (chronic obstructive pulmonary disease) 496 and GERD (gastroesophageal reflux disease) 530.81 [facility] [address] [place] [id number] [place] [address] 66986- 2720 Oct, [facility] [address] [place] [id number] [place] [address] 14738- 8791 Oct, [facility] [address] 02309- 5484 Oct, [facility] [address] [place] [id number] [place] [address] 89500- 4909 Oct, [facility] [address] 15530- 7287 Sep, [facility] [address] [place] [id number] [place] [address] 72417- 9944 Aug, [facility] [address] 11341- 8566 15 Aug, 2010 [facility] [address] [place] [id number] [address]- 2947 15 Aug, 2010 [facility] [address] [place] [id number] [address]- 0339 Jul, [facility] [address], [place] [address]- 5771 Jan, [facility] [address], [place] [address]- 1701 Oct, [facility] [address], [place] [address]- 5991 Oct, [facility] [address], [place] [address]- 4531 Sep, [facility] [address], [place] [address]- 9610 Apr, [facility] [address] [place] [id number] [address]- 7121 Dec, IMMUNIZATIONS No Known Immunizations SOCIAL HISTORY Never Assessed REASON FOR VISIT Refill request PLAN OF CARE VITAL SIGNS MEDICATIONS Medication Instructions Dosage Frequency Start Date End Date Duration Status Janumet 50-1000 mg Orally Twice a day 1 tablet with meals 12h 30 days Active Farxiga 5 mg TAKE ONE TABLET BY MOUTH DAILY 30 Active RESULTS No Results PROCEDURES No Known [...] lobe Pneumonia 02/24/16 Hospitalization History Chest Pain--[facility] 05/19/16 Hospitalization History Chest pain--[facility] 06/18/16 Hospitalization History Influenza & COPD exacerbation 12/21 Hospitalization History Cardiac Monitoring 01/2018 Hospitalization History [facility] ER, tripped and hit head 04/2018
--- OUTSIDE RECORDS SUMMARY | 2018-07-19 12:48 | XMS REPORT ---
Author Author MARIA MACKEY [facility] Address [address] [place] [address] Care Team Providers Care Proteomics Scientist Name Role Phone MARIA MACKEY Unavailable PROBLEMS Type Condition ICD9-CM Code ING73-LB Code Onset Dates Condition Status SNOMED Code Problem Angina at rest I20.8 Active 12891789 Problem Peptic ulcer K27.9 Active 50024754 Problem Constipation K59.00 Active 36494038 Problem Hospital discharge follow-up Z09 Active 468927101 Problem History of CVA (cerebrovascular accident) Z86.73 Active 069080091 Problem Type 2 diabetes mellitus without complication, without long-term current use of insulin E11.9 Active 739061332 Problem Hyperlipidemia LDL goal <100 E78.5 Active 57546444 Problem 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 Active 3135597549738 Problem 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 Active 446078857703 Problem Former smoker Z87.891 Active 7857292 Problem Hypothyroid E03.9 Active 76398078 Problem COPD (chronic obstructive pulmonary disease) J44.9 Active 12772426 Problem Osteopenia of spine M85.88 Active 582734078 Problem GERD (gastroesophageal reflux disease) K21.9 Active 209963258 ALLERGIES Substance Reaction Event Type Date Status Ultram hives Drug Allergy Sep, Active Fentanyl hives Drug Allergy Sep, Active ENCOUNTERS Encounter Location Date Diagnosis [facility] [address] [facility] [id number] [address] Apr, [facility] [address] [address] March, Hypothyroid E03.9 [facility] [id number] [address] March, Hypercholesterolemia E78.00 [facility] [id number] [place] [address] 29208- 9852 March, Hypothyroid E03.9 [place] [id number] [place] [address] 42920- 8187 March, Hypercholesterolemia E78.00 [place] [id number] [place] [address] 72252- 0907 Feb, Hypercholesterolemia E78.00 [place] [id number] [place] [address] 56716- 1729 Feb, Type 2 diabetes mellitus without complication, without long- term current use of insulin E11.9 [place] [id number] [place] [address] 54831- 0182 Feb, Hypothyroid E03.9 [place] [id number] [place] [address] 28248- 4589 Jan, Hypothyroid E03.9 ; 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 ; Hospital discharge follow-up Z09 ; Type 2 diabetes mellitus without complication, without long-term current use of insulin E11.9 ; 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 and History of CVA (cerebrovascular accident) Z86.73 [place] [address] [place] [address] 75936- 2778 Jan, [place] [address], [place] [address] 9[address] Jan, [place] [id number] [place] [address] 60581- 3118 Jan, Type 2 diabetes mellitus without complication, without long- term current use of insulin E11.9 [place] [id number] [place] [address] 62347- 2168 Dec, Hospital discharge follow-up Z09 ; COPD (chronic obstructive pulmonary disease) J44.9 ; Type 2 diabetes mellitus without complication, without long-term current use of insulin E11.9 ; Hypothyroid E03.9 and Vaginal discharge N89.8 [place] [address], [place] [address]609 Dec, Hypothyroid E03.9 [facility] [id number] [place] [address] 28124- 9459 Dec, Type 2 diabetes mellitus without complication, without long- term current use of insulin E11.9 [facility] [address] [address] Nov, [facility] [id number] [place] [address] 78289- 2721 Nov, [facility] [address] [place] [address] 17672- 8219 Nov, Pneumonia of right lower lobe due to infectious organism J18.1 ; Orthopnea R06.01 ; COPD with acute exacerbation J44.1 and Fatigue, unspecified type R53.83 [place] [id number] [place] [address] 05606- 9001 Nov, [place] [address], [place] [address] 7876 Nov, [facility] [id number] [place] [address] 90331- 7337 Oct, Pneumonia of right lower lobe due to infectious organism J18.1 [place] [address], [place] [address] 9588 Oct, Pneumonia of right lower lobe due to infectious organism J18.1 [facility] [address], [place] [address] 7364 Oct, Pneumonia of right lower lobe due to infectious organism J18.1 [facility] [address], [place] [address] 6120 Oct, COPD exacerbation J44.1 [facility] [address], [place] [address] 7983 Oct, [facility] [id number] [place] [address] 60795- 0676 20 Oct, 2017 COPD exacerbation J44.1 [place] [address] [address]- [address] 11 Oct, 2017 Encounter for immunization Z23 and COPD (chronic obstructive pulmonary disease) J44.9 [place] [address] [address]- [address]9 Oct, Medicare annual wellness visit, subsequent Z00.00 ; History of tobacco use Z87.891 ; Need for Zostavax administration Z23 ; Post-menopausal Z78.0 ; Screening for breast cancer Z12.31 ; Screening for colon cancer Z12.11 ; 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 and Encounter for immunization Z23 [place] [address] [address] 7191 Sep, Type 2 diabetes mellitus without complication, without long- term current use of insulin E11.[address] [address]- 3642 Sep, Type 2 diabetes mellitus without complication, without long- term current use of insulin E11.9 ; COPD (chronic obstructive pulmonary disease ) J44.9 ; Hypothyroid E03.9 ; GERD (gastroesophageal reflux disease) K21.9 ; CVA (cerebral vascular accident) I63.9 ; Hyperlipidemia LDL goal <100 E78.5 ; Coronary artery disease of [place] heart with stable angina pectoris, unspecified vessel or lesion type I25.118 and 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 [place] [id number] [place] [address] 79899- 0403 Aug, Type 2 diabetes mellitus without complication, without long- term current use of insulin E11.9 [place] [address] 6[address]41- 1294 Aug, Hypothyroid E03.9 [id number] [place] [address] 12194- 1153 Aug, Type 2 diabetes mellitus without complication, without long- term current use of insulin E11.9 ; COPD (chronic obstructive pulmonary disease ) J44.9 ; Hypothyroid E03.9 ; GERD (gastroesophageal reflux disease) K21.9 ; CVA (cerebral vascular accident) I63.9 ; Hyperlipidemia LDL goal <100 E78.5 ; Coronary artery disease of [place] heart with stable angina pectoris, unspecified vessel or lesion type I25.118 and Encounter for immunization Z23 [place] [address] [address] Jul, Hypothyroid E03.9 and Hypercholesterolemia E78.00 [place] [address] [address]- 7313 Jul, Hypothyroid E03.9 ; Diabetes mellitus E11.9 and Hypercholesterolemia E78.0 [place] [address] 89398- 0749 Jul, Hypothyroid E03.9 ; Diabetes mellitus E11.9 and Hypercholesterolemia E78.0 [place] [address] 81280- 5178 May, CVA (cerebral vascular accident) I63.9 and Dizziness R42 [address] [address]- 9705 May, Dehydration E86.0 ; CVA (cerebral vascular accident) I63.9 ; COPD (chronic obstructive pulmonary disease) J44.9 and Dizziness R42 [place] [address] 08288- 5011 March, Diabetes mellitus E11.9 ; Angina at rest I20.8 ; COPD ( chronic obstructive pulmonary disease) J44.9 ; GERD (gastroesophageal reflux disease) K21.9 ; Hypercholesterolemia E78.00 ; CVA (cerebral vascular accident) I63.9 and Hypothyroid E03.9 [place] [address] 75679- 9706 Jan, Hypothyroid E03.9 and Diabetes mellitus E11.9 [place] [address] 9[address]65- 5758 Jan, [facility] [address], [place] [address] 7056 Jan, Diabetes mellitus E11.9 [facility] [id number] [address] 2546 Jan, [facility] [address], [place] [address] 7873 Dec, Diabetes mellitus E11.9 ; CVA (cerebral vascular accident) I63.9 ; COPD (chronic obstructive pulmonary disease) J44.9 ; Hypothyroid E03.9 ; GERD (gastroesophageal reflux disease) K21.9 and Hypercholesterolemia E78.00 [facility] [id number] [place] [address] 36146- 2626 Nov, Diabetes mellitus E11.9 [facility] [address], [place] [address]- 2794 Nov, [facility] [id number] [place] [address] 34937- 1513 Nov, [facility] [address], [place] [address]- 9025 Nov, [facility] [id number] [place] [address] 08592- 5447 Nov, Diabetes mellitus E11.9 [facility] [address], [place] [address]- 2080 Oct, Hypothyroid E03.9 [facility] [address], [place] [address] 2547 Oct, Diabetes mellitus E11.9 [facility] [address], [place] [address]- 6370 Oct, COPD (chronic obstructive pulmonary disease) J44.9 [facility] [address], [place] [address]- 2546 Oct, [facility] [address], [place] [address]- 5733 Sep, Diabetes mellitus E11.9 ; Angina at rest I20.8 ; Hypercholesterolemia E78.0 ; COPD (chronic obstructive pulmonary disease) J44.9 ; GERD (gastroesophageal reflux disease) K21.9 ; Dysuria R30.0 ; Acquired hypothyroidism E03.9 ; Encounter for immunization Z23 and Acute cystitis without hematuria N30.00 [facility] [id number] [place] [address] 79525- 5555 Sep, Diabetes mellitus E11.9 [facility] [id number] [place] [address] 99359 -0685 Aug, [facility] [id number] [place] [address] 91380- 5645 Aug, Diabetes mellitus E11.9 [facility] [id number] [place] [address] 71434- 8755 Jun, Angina at rest I20.8 ; CVA (cerebral vascular accident) I63.9 ; Diabetes mellitus E11.9 ; Hypercholesterolemia E78.0 ; COPD (chronic obstructive pulmonary disease) J44.9 ; GERD (gastroesophageal reflux disease) K21.9 ; Peptic ulcer K27.9 and Hypothyroid E03.9 [facility] [id number] [place] [address] 98147- 4708 Jun, [facility] [id number] [place] [address] 74346- 3170 May, Diabetes mellitus E11.9 ; CVA (cerebral vascular accident) I63.9 ; COPD (chronic obstructive pulmonary disease) J44.9 and Angina at rest I20.8 [facility] [id number] [place] [address] 28214- 7351 May, [place] [id number] [place] [address] 63376- 2827 May, Diabetes mellitus E11.9 ; Hypothyroid E03.9 ; Angina at rest I20.8 ; CVA (cerebral vascular accident) I63.9 ; COPD (chronic obstructive pulmonary disease) J44.9 ; GERD (gastroesophageal reflux disease) K21.9 and Hypercholesterolemia E78.0 [place] [id number] [place] [address] 04430- 6163 Apr, Hypercholesterolemia E78.0 [place] [id number] [place] [address] 43615- 8758 Apr, [place] [id number] [place] [address] 40842- 5061 March, Diabetes mellitus E11.9 ; Hypothyroid E03.9 ; Hypercholesterolemia E78.0 ; COPD (chronic obstructive pulmonary disease) J44.9 ; GERD (gastroesophageal reflux disease) K21.9 ; Constipation K59.00 ; CVA ( cerebral vascular accident) I63.9 and Angina at rest I20.8 [place] [id number] [place] [address] 26817- 6807 March, [place] [id number] [place] [address] 50091- 6702 Feb, [place] [id number] [place] [address] 90194- 9673 Feb, [place] [id number] [place] [address] 06042- 2511 Feb, [place] [id number] [place] [address] 49285- 6169 Jan, Diabetes mellitus E11.9 ; Hypercholesterolemia E78.0 ; CVA ( cerebral vascular accident) I63.9 ; GERD (gastroesophageal reflux disease) K21.9 ; Hypothyroid E03.9 and Angina at rest I20.8 [place] [id number] [place] [address] 19038- 4218 Dec, Diabetes mellitus E11.9 ; Hypothyroid E03.9 ; Angina at rest I20.8 ; CVA (cerebral vascular accident) I63.9 ; Hypercholesterolemia E78.0 ; COPD (chronic obstructive pulmonary disease) J44.9 ; GERD ( gastroesophageal reflux disease) K21.9 and Dysuria R30.0 [place] [address] [place] [address] Nov, [facility] [id number] [place] [address] 07018- 2193 Nov, Hypothyroid E03.9 [facility] [id number] [place] [address] 26364- 8024 Nov, Hypothyroid E03.9 ; Angina at rest I20.8 ; CVA (cerebral vascular accident) I63.9 ; Hypercholesterolemia E78.0 ; COPD (chronic obstructive pulmonary disease) J44.9 ; GERD (gastroesophageal reflux disease) K21.9 and Diabetes E11.9 [facility] [id number] [place] [address] 48372 -3303 Oct, Upper respiratory symptom R09.89 [facility] [id number] [place] [address] 22453- 0257 Oct, [facility] [id number] [place] [address] 31049- 2887 Oct, [facility] [id number] [place] [address] 34489- 5758 Oct, [facility] [id number] [place] [address] 20398- 1487 Aug, Diabetes mellitus 250.00 ; Encounter for immunization Z23 ; Hypothyroid E03.9 ; Angina at rest I20.8 ; CVA (cerebral vascular accident) I63.9 ; Hypercholesterolemia E78.0 ; COPD (chronic obstructive pulmonary disease ) J44.9 and GERD (gastroesophageal reflux disease) K21.9 [facility] [address] [place] [address] 74746- 2856 Jul, [facility] [id number] [place] [address] 94218- 9353 Jun, [facility] [id number] [place] [address] 30497- 8293 Jun, [facility] [id number] [place] [address] 69953- 5266 May, [facility] [address] [address]- 1945 May, Diabetes mellitus 250.00 ; Hypothyroidism 244.9 ; Angina at rest 413.9 ; CVA (cerebral infarction) 434.91 ; Hypercholesterolemia 272.0 ; COPD (chronic obstructive pulmonary disease) 496 and GERD (gastroesophageal reflux disease) 530.81 [facility] [id number] [place] [address] 15659- 3486 Oct, [facility] [address] [address]- 1332 Oct, [facility] [id number] [place] [address] 87408- 1276 Oct, [facility] [id number] [place] [address] 60123- 3191 Oct, [facility] [id number] [place] [address] 35243- 2027 Sep, [facility] [address] 5884 Aug, [facility] [address] [place] [address] 38433- 1940 Aug, [facility] [address], [place] [address]- 2276 Aug, [facility] [address], [place] [address]- 9176 Jul, [facility] [address], [place] [address]- 8969 Jan, [facility] [address], [place] [address]- 2776 Oct, [facility] [address], [place] [address]- 2546 Oct, [facility] [id number] [place] [address] 44068- 5086 Sep, [facility] [address] [facility] [id number] [address]- 0266 Apr, [facility] [address] [facility] [id number] [address]- 6166 Dec, IMMUNIZATIONS No Known Immunizations SOCIAL HISTORY Never Assessed REASON FOR VISIT Thyroid---[place],CCMA, pt. states thinks she may have a cold because she has been coughing alot PLAN OF CARE Activity Details Follow Up medicare exam as scheduled Reason: VITAL SIGNS Height 60 in 2017-09-10 Weight 163.7 lbs 2017-09-10 Temperature 97.8 degrees Fahrenheit 2017-09-10 Heart Rate 80 bpm 2017-09-10 Respiratory Rate 20 2017-09-10 Oximetry 98 % 2017-09-10 BMI 31.97 kg/m2 2017-09-10 Blood pressure systolic 125 mmHg 2017-09-10 Blood pressure diastolic 68 mmHg 2017-09-10 MEDICATIONS Medication Instructions Dosage Frequency Start Date End Date Duration Status Lancets test one time per day as directed Active Fenofibrate 160 MG Orally Once a day 1 tablet with a meal 24h Jan, Active NitroMist 400 MCG/SPRAY Translingual Once a day 1 spray under the tongue 24h Active Janumet 50-1000 mg Orally Twice a day 1 tablet with meals 12h Active Clopidogrel Bisulfate 75 MG Orally Once a day 1 tablet 24h Active Atorvastatin Calcium 40 mg Orally Once a day at HS 1 tablet Active Zithromax 250 MG Orally Once a day 2 tablets on the first day, then 1 tablet daily for 4 days 24h Sep, Sep, 5 day(s) Active Ranexa 1000 MG Orally Twice a day 1 tablet 12h Active Acetaminophen 500 MG Orally every 6 hrs 2 tablets 6h Active Isosorbide Mononitrate ER 60 MG Orally Once a day 1 tablet 24h Active Protonix 40 mg Orally twice a day 1 tablet 12h Active OneTouch Ultra Test - In Vitro 3 times a day USE ONE STRIP TO CHECK GLUCOSE ONCE DAILY DIRECTED 8h Active Farxiga 5 mg Orally Once a day 1 tablet 24h 7 Nov, 2017 30 day(s) Active Meclizine HCl 25 MG Orally 3 times a day 1 tablet as needed 8h 18 May, 2017 10 days Active PredniSONE 20 mg Orally Once a day 1 tablet 24h Sep, Sep, 05 days Active Levothyroxine Sodium 100 MCG Orally Once a day 1 tablet 24h Nov, Active RESULTS No Results PROCEDURES Procedure Date Ordered Result Body Site MEASURE BLOOD OXYGEN LEVEL Sep 10, 2017 [facility] VISIT ESTABLISHED PATIENT Sep 10, 2017 INSTRUCTIONS MEDICATIONS ADMINISTERED No Known Medications [...] lobe Pneumonia 02/24/16 Hospitalization History Chest Pain--[facility] 05/19/16 Hospitalization History Chest pain--[facility] 06/18/16 Hospitalization History Influenza & COPD exacerbation 12/21 Hospitalization History Cardiac Monitoring 01/2018
--- OUTSIDE RECORDS SUMMARY | 2018-07-19 12:49 | XMS REPORT ---
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 Name Role Phone MARIA MACKEY Unavailable PROBLEMS Type Condition ICD9-CM Code TUE49-GF Code Onset Dates Condition Status SNOMED Code Problem Angina at rest I20.8 Active 68980736 Problem Peptic ulcer K27.9 Active 07892828 Problem Constipation K59.00 Active 35921813 Problem Hospital discharge follow-up Z09 Active 972931384 Problem History of CVA (cerebrovascular accident) Z86.73 Active 420659026 Problem Type 2 diabetes mellitus without complication, without long-term current use of insulin E11.9 Active 885990254 Problem Hyperlipidemia LDL goal <100 E78.5 Active 55513219 Problem 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 Active 5895572735171 Problem 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 Active 568482215571 Problem Former smoker Z87.891 Active 8064244 Problem Hypothyroid E03.9 Active 01650303 Problem COPD (chronic obstructive pulmonary disease) J44.9 Active 74585040 Problem Osteopenia of spine M85.88 Active 132058718 Problem GERD (gastroesophageal reflux disease) K21.9 Active 035746606 ALLERGIES No Information ENCOUNTERS Encounter Location Date Diagnosis [facility] [id number] [address] Apr, [facility] [id number] [address] March, Hypothyroid E03.9 [facility] [address], [place] [address] March, Hypercholesterolemia E78.00 [facility] [id number] [address] March, Hypothyroid E03.9 [place] [facility] [address], [place] [address] March, Hypercholesterolemia E78.00 [facility] [facility] [id number] [place] [address]5800- 7787 Feb, Hypercholesterolemia E78.00 [facility] [facility] [id number] [place] [address] 30416- 1788 Feb, Type 2 diabetes mellitus without complication, without long- term current use of insulin E11.9 [facility] [facility] [id number] [place] [address] 58717- 6576 Feb, Hypothyroid E03.9 [facility] [facility] [id number] [place] [address] 32516- 5862 Jan, Hypothyroid E03.9 ; 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 ; Hospital discharge follow-up Z09 ; Type 2 diabetes mellitus without complication, without long-term current use of insulin E11.9 ; 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 and History of CVA (cerebrovascular accident) Z86.73 [place] [id number] [place] [address] 67397- 9704 Jan, [place] [id number] [place] [address] 93990- 0996 Jan, [place] [id number] [place] [address] 43655- 1025 Jan, Type 2 diabetes mellitus without complication, without long- term current use of insulin E11.9 [place] [address], [place] [address] Dec, Hospital discharge follow-up Z09 ; COPD (chronic obstructive pulmonary disease) J44.9 ; Type 2 diabetes mellitus without complication, without long-term current use of insulin E11.9 ; Hypothyroid E03.9 and Vaginal discharge N89.8 [place] [address] [place] [address] 35539- 4035 Dec, Hypothyroid E03.9 [facility] [address], [place] [address] 289[address] Dec, Type 2 diabetes mellitus without complication, without long- term current use of insulin E11.9 [facility] [address] [address] Nov, [facility] [id number] [address] Nov, [facility] [address], [place] [address] Nov, Pneumonia of right lower lobe due to infectious organism J18.1 ; Orthopnea R06.01 ; COPD with acute exacerbation J44.1 and Fatigue, unspecified type R53.83 [facility] [address] [address] Nov, [facility] [address], [place] [address] 287[address] Nov, [facility] [address], [place] [address] 7751 Oct, Pneumonia of right lower lobe due to infectious organism J18.1 [facility] [address], [place] [address] 0011 Oct, Pneumonia of right lower lobe due to infectious organism J18.1 [facility] [address], [place] [address] 0950 Oct, Pneumonia of right lower lobe due to infectious organism J18.1 [facility] [address], [place] [address] 9206 Oct, COPD exacerbation J44.1 [facility] [address], [place] [address] 3556 Oct, [facility] [address], [place] [address] 7963 Oct, COPD exacerbation J44.1 [place] [facility] [address], [place] [address] 11 Oct, 2017 Encounter for immunization Z23 and COPD (chronic obstructive pulmonary disease) J44.9 [facility] [facility] [id number] [place] [address] 31543- 0814 06 Oct, 2017 Medicare annual wellness visit, subsequent Z00.00 ; History of tobacco use Z87.891 ; Need for Zostavax administration Z23 ; Post-menopausal Z78.0 ; Screening for breast cancer Z12.31 ; Screening for colon cancer Z12.11 ; 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 and Encounter for immunization Z23 [place] [facility] [id number] [place] [address] 51944- 9351 Sep, Type 2 diabetes mellitus without complication, without long- term current use of insulin E11.9 [address] [id number] [place] [address] 34565- 0649 Sep, Type 2 diabetes mellitus without complication, without long- term current use of insulin E11.9 ; COPD (chronic obstructive pulmonary disease ) J44.9 ; Hypothyroid E03.9 ; GERD (gastroesophageal reflux disease) K21.9 ; CVA (cerebral vascular accident) I63.9 ; Hyperlipidemia LDL goal <100 E78.5 ; Coronary artery disease of [place] heart with stable angina pectoris, unspecified vessel or lesion type I25.118 and 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 [place] [address] [place] [address] 17251- 3661 Aug, Type 2 diabetes mellitus without complication, without long- term current use of insulin E11.9 [facility] [facility] [address] [place] [address] 57310- 2160 Aug, Hypothyroid E03.9 [id number] [place] [address] 81623- 1594 Aug, Type 2 diabetes mellitus without complication, without long- term current use of insulin E11.9 ; COPD (chronic obstructive pulmonary disease ) J44.9 ; Hypothyroid E03.9 ; GERD (gastroesophageal reflux disease) K21.9 ; CVA (cerebral vascular accident) I63.9 ; Hyperlipidemia LDL goal <100 E78.5 ; Coronary artery disease of [place] heart with stable angina pectoris, unspecified vessel or lesion type I25.118 and Encounter for immunization Z23 [place] [address] [address]- [address] Jul, Hypothyroid E03.9 and Hypercholesterolemia E78.00 [place] [address] [address]- 8467 Jul, Hypothyroid E03.9 ; Diabetes mellitus E11.9 and Hypercholesterolemia E78.0 [place] [address] [address]- 0116 Jul, Hypothyroid E03.9 ; Diabetes mellitus E11.9 and Hypercholesterolemia E78.0 [place] [address] [address]- 5128 May, CVA (cerebral vascular accident) I63.9 and Dizziness R42 [place] [address] [address]- 9600 May, Dehydration E86.0 ; CVA (cerebral vascular accident) I63.9 ; COPD (chronic obstructive pulmonary disease) J44.9 and Dizziness R42 [place] [id number] [place] [address] 02858- 1455 March, Diabetes mellitus E11.9 ; Angina at rest I20.8 ; COPD ( chronic obstructive pulmonary disease) J44.9 ; GERD (gastroesophageal reflux disease) K21.9 ; Hypercholesterolemia E78.00 ; CVA (cerebral vascular accident) I63.9 and Hypothyroid E03.9 [place] [address] 95[address]- 3695 Jan, Hypothyroid E03.9 and Diabetes mellitus E11.9 [place] [facility] [id number] [place] [address] 41708- 1795 Jan, [place] [address] 7[address]67- 7584 Jan, Diabetes mellitus E11.9 [facility] [address], [place] [address] Jan, [facility] [address] [place] [address] 21235- 5404 Dec, Diabetes mellitus E11.9 ; CVA (cerebral vascular accident) I63.9 ; COPD (chronic obstructive pulmonary disease) J44.9 ; Hypothyroid E03.9 ; GERD (gastroesophageal reflux disease) K21.9 and Hypercholesterolemia E78.00 [facility] [address], [place] [address]- 0052 Nov, Diabetes mellitus E11.9 [facility] [id number] [place] [address] 12162- 9728 Nov, [facility] [id number] [place] [address] 57659- 6571 Nov, [facility] [id number] [place] [address] 32275- 2181 Nov, [facility] [id number] [place] [address] 36388- 0261 Nov, Diabetes mellitus E11.9 [facility] [address] [place] [address] 72963- 2569 Oct, Hypothyroid E03.9 [facility] [address], [place] [address]- 3856 Oct, Diabetes mellitus E11.9 [facility] [address], [place] [address]- 2863 Oct, COPD (chronic obstructive pulmonary disease) J44.9 [facility] [address], [place] [address]- 0400 Oct, [facility] [address], [place] [address]- 8651 Sep, Diabetes mellitus E11.9 ; Angina at rest I20.8 ; Hypercholesterolemia E78.0 ; COPD (chronic obstructive pulmonary disease) J44.9 ; GERD (gastroesophageal reflux disease) K21.9 ; Dysuria R30.0 ; Acquired hypothyroidism E03.9 ; Encounter for immunization Z23 and Acute cystitis without hematuria N30.00 [facility] [id number] [place] [address] 89665- 2893 Sep, Diabetes mellitus E11.9 [facility] [id number] [place] [address] 33200 -1797 Aug, [facility] [id number] [place] [address] 66928- 4376 Aug, Diabetes mellitus E11.9 [place] [address] 02960- 4669 Jun, Angina at rest I20.8 ; CVA (cerebral vascular accident) I63.9 ; Diabetes mellitus E11.9 ; Hypercholesterolemia E78.0 ; COPD (chronic obstructive pulmonary disease) J44.9 ; GERD (gastroesophageal reflux disease) K21.9 ; Peptic ulcer K27.9 and Hypothyroid E03.9 [facility] [id number] [place] [address] 13078- 5080 Jun, [place] [id number] [place] [address] 86172- 4262 May, Diabetes mellitus E11.9 ; CVA (cerebral vascular accident) I63.9 ; COPD (chronic obstructive pulmonary disease) J44.9 and Angina at rest I20.8 [facility] [id number] [place] [address] 40221- 0161 May, [place] [id number] [place] [address] 30543- 1494 May, Diabetes mellitus E11.9 ; Hypothyroid E03.9 ; Angina at rest I20.8 ; CVA (cerebral vascular accident) I63.9 ; COPD (chronic obstructive pulmonary disease) J44.9 ; GERD (gastroesophageal reflux disease) K21.9 and Hypercholesterolemia E78.0 [place] [address] [place] [address]- 1527 Apr, Hypercholesterolemia E78.0 [place] [id number] [address]31- 1449 Apr, [facility] [id number] [place] [address] 50019- 2441 March, Diabetes mellitus E11.9 ; Hypothyroid E03.9 ; Hypercholesterolemia E78.0 ; COPD (chronic obstructive pulmonary disease) J44.9 ; GERD (gastroesophageal reflux disease) K21.9 ; Constipation K59.00 ; CVA ( cerebral vascular accident) I63.9 and Angina at rest I20.8 [place] [address] 30228- 0569 March, [place] [facility] [id number] [place] [address] 37897- 2087 Feb, [place] [address] 70083- 2664 Feb, [facility] [id number] [place] [address] 47090- 7119 Feb, [place] [id number] [place] [address] 13510- 5576 Jan, Diabetes mellitus E11.9 ; Hypercholesterolemia E78.0 ; CVA ( cerebral vascular accident) I63.9 ; GERD (gastroesophageal reflux disease) K21.9 ; Hypothyroid E03.9 and Angina at rest I20.8 [place] [id number] [place] [address] 47682- 2915 Dec, Diabetes mellitus E11.9 ; Hypothyroid E03.9 ; Angina at rest I20.8 ; CVA (cerebral vascular accident) I63.9 ; Hypercholesterolemia E78.0 ; COPD (chronic obstructive pulmonary disease) J44.9 ; GERD ( gastroesophageal reflux disease) K21.9 and Dysuria R30.0 [place] [facility] [id number] [place] [address] 93717- 8697 Nov, [place] [facility] [address], [place] [address]- 1910 Nov, Hypothyroid E03.9 [facility] [id number] [place] [address] 49528- 3357 Nov, Hypothyroid E03.9 ; Angina at rest I20.8 ; CVA (cerebral vascular accident) I63.9 ; Hypercholesterolemia E78.0 ; COPD (chronic obstructive pulmonary disease) J44.9 ; GERD (gastroesophageal reflux disease) K21.9 and Diabetes E11.9 [facility] [address] [place] [address] 41639 -1466 Oct, Upper respiratory symptom R09.89 [facility] [id number] [place] [address] 39488- 2233 Oct, [facility] [id number] [place] [address] 22137- 0154 Oct, [facility] [id number] [place] [address] 75002- 2832 Oct, [facility] [id number] [place] [address] 63947- 1532 Aug, Diabetes mellitus 250.00 ; Encounter for immunization Z23 ; Hypothyroid E03.9 ; Angina at rest I20.8 ; CVA (cerebral vascular accident) I63.9 ; Hypercholesterolemia E78.0 ; COPD (chronic obstructive pulmonary disease ) J44.9 and GERD (gastroesophageal reflux disease) K21.9 [facility] [address] [place] [address] 86803- 5483 Jul, [facility] [id number] [place] [address] 35995- 1919 Jun, [facility] [id number] [place] [address] 42766- 3748 Jun, [facility] [address], [place] [address]- 1285 May, [facility] [address] [place] [address]- 5272 May, Diabetes mellitus 250.00 ; Hypothyroidism 244.9 ; Angina at rest 413.9 ; CVA (cerebral infarction) 434.91 ; Hypercholesterolemia 272.0 ; COPD (chronic obstructive pulmonary disease) 496 and GERD (gastroesophageal reflux disease) 530.81 [facility] [address], [place] [address]- 2456 30 Oct, 2010 [facility] [id number] [place] [address] 58251- 1006 Oct, [facility] [address], [place] [address]- 7496 Oct, [facility] [id number] [place] [address] 96279- 3866 Oct, [facility] [address], [place] [address] 2546 Sep, [facility] [address], [place] [address]- 7240 Aug, [facility] [address], [place] [address]- 0596 Aug, [facility] [address], [place] [address]- 1166 Aug, [facility] [address], [place] [address] 2546 Jul, [facility] [address], [place] [address] 2546 Jan, [facility] [address], [place] [address]- 2546 Oct, [facility] [address], [place] [address] 2546 Oct, [facility] [address], [place] [address]- 2546 Sep, [facility] [address] [address]- 0470 Apr, [facility] [address] [facility] [id number] [address]- 3570 10 Dec, 2008 IMMUNIZATIONS No Known Immunizations SOCIAL HISTORY Never Assessed REASON FOR VISIT Other PLAN OF CARE VITAL SIGNS MEDICATIONS Unknown [...] upper lobe Pneumonia 02/24/16 Hospitalization History Chest Pain--[facility] 05/19/16 Hospitalization History Chest pain--[facility] 06/18/16 Hospitalization History Influenza & COPD exacerbation 12/21 Hospitalization History Cardiac Monitoring 01/2018
--- OUTSIDE RECORDS SUMMARY | 2018-07-19 12:50 | XMS REPORT ---
Author Author MRAIA MACKEY [facility] Address [address] [place] [address] Care Team Providers Care Grappler Name Role Phone MARIA MACKEY Unavailable PROBLEMS Type Condition ICD9-CM Code LRL44-LL Code Onset Dates Condition Status SNOMED Code Problem Angina at rest I20.8 Active 75593915 Problem Peptic ulcer K27.9 Active 85307842 Problem Constipation K59.00 Active 72995519 Problem Hospital discharge follow-up Z09 Active 431600584 Problem History of CVA (cerebrovascular accident) Z86.73 Active 423607256 Problem Type 2 diabetes mellitus without complication, without long-term current use of insulin E11.9 Active 631307544 Problem Hyperlipidemia LDL goal <100 E78.5 Active 35923478 Problem 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 Active 9623669834318 Problem 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 Active 271067124126 Problem Former smoker Z87.891 Active 3936140 Problem Hypothyroid E03.9 Active 66705301 Problem COPD (chronic obstructive pulmonary disease) J44.9 Active 74135944 Problem Osteopenia of spine M85.88 Active 164250679 Problem GERD (gastroesophageal reflux disease) K21.9 Active 820246060 ALLERGIES No Information ENCOUNTERS Encounter Location Date Diagnosis [facility], [place] [id number] [address] Apr, [facility], [place] [id number] [address] March, Hypothyroid E03.9 [facility], [place] [id number] [address] March, Hypercholesterolemia E78.00 [facility], [place] [id number] [address] March, Hypothyroid E03.9 [facility] [facility] [address] [address] March, Hypercholesterolemia E78.00 [facility] [id number] [place] [address] 47590- 7479 Feb, Hypercholesterolemia E78.00 [facility] [id number] [place] [address] 48072- 9327 Feb, Type 2 diabetes mellitus without complication, without long- term current use of insulin E11.9 [facility] [id number] [place] [address] 71388- 4891 Feb, Hypothyroid E03.9 [facility] [id number] [place] [address] 80055- 6132 Jan, Hypothyroid E03.9 ; 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 ; Hospital discharge follow-up Z09 ; Type 2 diabetes mellitus without complication, without long-term current use of insulin E11.9 ; 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 and History of CVA (cerebrovascular accident) Z86.73 [place] [id number] [place] [address] 95116- 8620 Jan, [address] [id number] [place] [address] 31090- 9326 Jan, [address] [id number] [place] [address] 94498- 3216 Jan, Type 2 diabetes mellitus without complication, without long- term current use of insulin E11.9 [place] [address] [address] Dec, Hospital discharge follow-up Z09 ; COPD (chronic obstructive pulmonary disease) J44.9 ; Type 2 diabetes mellitus without complication, without long-term current use of insulin E11.9 ; Hypothyroid E03.9 and Vaginal discharge N89.8 [place] [id number] [place] [address] 29361- 1271 Dec, Hypothyroid E03.9 [facility], [place] [address] [address] Dec, Type 2 diabetes mellitus without complication, without long- term current use of insulin E11.9 [facility], [place] [id number] [address] 0[address] Nov, [facility], [place] [id number] [address] Nov, [facility], [place] [address] [address] Nov, Pneumonia of right lower lobe due to infectious organism J18.1 ; Orthopnea R06.01 ; COPD with acute exacerbation J44.1 and Fatigue, unspecified type R53.83 [facility], [place] [address] [address] Nov, [facility], [place] [id number] [address] 47[address] Nov, [facility], [place] [id number] [address] 3475 Oct, Pneumonia of right lower lobe due to infectious organism J18.1 [facility], [place] [id number] [address] 57[address] Oct, Pneumonia of right lower lobe due to infectious organism J18.1 [facility], [place] [address] [address] 6[address] Oct, Pneumonia of right lower lobe due to infectious organism J18.1 [facility], [place] [address] [address] 8686 Oct, COPD exacerbation J44.1 [facility], [place] [id number] [address] 25[address] Oct, [facility], [place] [address] [address] 2587 Oct, COPD exacerbation J44.1 [address] [address] [address] 9[address] 11 Oct, 2017 Encounter for immunization Z23 and COPD (chronic obstructive pulmonary disease) J44.9 [facility] [facility] [id number] [place] [address] 55316- 9965 06 Oct, 2017 Medicare annual wellness visit, subsequent Z00.00 ; History of tobacco use Z87.891 ; Need for Zostavax administration Z23 ; Post-menopausal Z78.0 ; Screening for breast cancer Z12.31 ; Screening for colon cancer Z12.11 ; 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 and Encounter for immunization Z23 [place] [id number] [place] [address] 17884- 3278 Sep, Type 2 diabetes mellitus without complication, without long- term current use of insulin E11.9 [id number] [place] [address] 66440- 2749 Sep, Type 2 diabetes mellitus without complication, without long- term current use of insulin E11.9 ; COPD (chronic obstructive pulmonary disease ) J44.9 ; Hypothyroid E03.9 ; GERD (gastroesophageal reflux disease) K21.9 ; CVA (cerebral vascular accident) I63.9 ; Hyperlipidemia LDL goal <100 E78.5 ; Coronary artery disease of torres martinez heart with stable angina pectoris, unspecified vessel or lesion type I25.118 and 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 [place] [id number] [place] [address] 72610- 0083 Aug, Type 2 diabetes mellitus without complication, without long- term current use of insulin E11.9 [place] [id number] [place] [address] 29310- 9949 Aug, Hypothyroid E03.9 [id number] [place] [address] 44584- 9404 Aug, Type 2 diabetes mellitus without complication, without long- term current use of insulin E11.9 ; COPD (chronic obstructive pulmonary disease ) J44.9 ; Hypothyroid E03.9 ; GERD (gastroesophageal reflux disease) K21.9 ; CVA (cerebral vascular accident) I63.9 ; Hyperlipidemia LDL goal <100 E78.5 ; Coronary artery disease of torres martinez heart with stable angina pectoris, unspecified vessel or lesion type I25.118 and Encounter for immunization Z23 [address] [address] Jul, Hypothyroid E03.9 and Hypercholesterolemia E78.00 [place] [address] [address]- [address]84 Jul, Hypothyroid E03.9 ; Diabetes mellitus E11.9 and Hypercholesterolemia E78.0 [place] [address] [address]- 7960 Jul, Hypothyroid E03.9 ; Diabetes mellitus E11.9 and Hypercholesterolemia E78.0 [address] [address] 13555- 7348 May, CVA (cerebral vascular accident) I63.9 and Dizziness R42 [place] [address] [address] May, Dehydration E86.0 ; CVA (cerebral vascular accident) I63.9 ; COPD (chronic obstructive pulmonary disease) J44.9 and Dizziness R42 [place] [id number] [place] [address] 13147- 7112 March, Diabetes mellitus E11.9 ; Angina at rest I20.8 ; COPD ( chronic obstructive pulmonary disease) J44.9 ; GERD (gastroesophageal reflux disease) K21.9 ; Hypercholesterolemia E78.00 ; CVA (cerebral vascular accident) I63.9 and Hypothyroid E03.9 [address] [place] [address] [address]- 2620 Jan, Hypothyroid E03.9 and Diabetes mellitus E11.9 [place] [id number] [place] [address] 74231- 1233 Jan, [address] [address] [address]- 8457 Jan, Diabetes mellitus E11.9 [facility], [place] [address] [address] Jan, [facility], [place] [id number] [place] [address] 22240- 9284 Dec, Diabetes mellitus E11.9 ; CVA (cerebral vascular accident) I63.9 ; COPD (chronic obstructive pulmonary disease) J44.9 ; Hypothyroid E03.9 ; GERD (gastroesophageal reflux disease) K21.9 and Hypercholesterolemia E78.00 [facility], [place] [address] [address]- 1495 Nov, Diabetes mellitus E11.9 [facility], [place] [id number] [place] [address] 65508- 9812 Nov, [facility], [place] [id number] [place] [address] 91042- 2039 Nov, [facility], [place] [id number] [place] [address] 17627- 9158 Nov, [facility], [place] [id number] [place] [address] 91443- 2290 Nov, Diabetes mellitus E11.9 [facility], [place] [id number] [place] [address] 31357- 2911 Oct, Hypothyroid E03.9 [facility], [place] [address] [address]- 3288 Oct, Diabetes mellitus E11.9 [facility], [place] [id number] [address]- 9322 Oct, COPD (chronic obstructive pulmonary disease) J44.9 [facility], [place] [id number] [address]- 6239 Oct, [facility], [place] [address] [address]- 4941 Sep, Diabetes mellitus E11.9 ; Angina at rest I20.8 ; Hypercholesterolemia E78.0 ; COPD (chronic obstructive pulmonary disease) J44.9 ; GERD (gastroesophageal reflux disease) K21.9 ; Dysuria R30.0 ; Acquired hypothyroidism E03.9 ; Encounter for immunization Z23 and Acute cystitis without hematuria N30.00 [facility], [place] [id number] [place] [address] 50096- 3409 Sep, Diabetes mellitus E11.9 [facility] [id number] [place] [address] 39799 -6543 Aug, [facility], [place] [id number] [place] [address] 35372- 2555 Aug, Diabetes mellitus E11.9 [address] [place] [address] 42702- 9158 Jun, Angina at rest I20.8 ; CVA (cerebral vascular accident) I63.9 ; Diabetes mellitus E11.9 ; Hypercholesterolemia E78.0 ; COPD (chronic obstructive pulmonary disease) J44.9 ; GERD (gastroesophageal reflux disease) K21.9 ; Peptic ulcer K27.9 and Hypothyroid E03.9 [facility], [place] [id number] [place] [address] 66931- 7767 Jun, [address] [id number] [place] [address] 05890- 6503 May, Diabetes mellitus E11.9 ; CVA (cerebral vascular accident) I63.9 ; COPD (chronic obstructive pulmonary disease) J44.9 and Angina at rest I20.8 [facility], [place] [id number] [place] [address] 48737- 3634 May, [address] [id number] [place] [address] 71641- 9110 May, Diabetes mellitus E11.9 ; Hypothyroid E03.9 ; Angina at rest I20.8 ; CVA (cerebral vascular accident) I63.9 ; COPD (chronic obstructive pulmonary disease) J44.9 ; GERD (gastroesophageal reflux disease) K21.9 and Hypercholesterolemia E78.0 [address] [place] [place] [address]- 7087 Apr, Hypercholesterolemia E78.0 [place] [address] [address]- 9838 Apr, [facility], [place] [id number] [place] [address] 29994- 2598 March, Diabetes mellitus E11.9 ; Hypothyroid E03.9 ; Hypercholesterolemia E78.0 ; COPD (chronic obstructive pulmonary disease) J44.9 ; GERD (gastroesophageal reflux disease) K21.9 ; Constipation K59.00 ; CVA ( cerebral vascular accident) I63.9 and Angina at rest I20.8 [address] [place] 88821- 2076 March, [address] [id number] [place] [address] 74192- 3728 Feb, [address] [address] 22970- 4956 Feb, [facility], [place] [id number] [place] [address] 29398- 8737 Feb, [address] [id number] [place] [address] 35519- 5330 Jan, Diabetes mellitus E11.9 ; Hypercholesterolemia E78.0 ; CVA ( cerebral vascular accident) I63.9 ; GERD (gastroesophageal reflux disease) K21.9 ; Hypothyroid E03.9 and Angina at rest I20.8 [address] [place] [id number] [place] [address] 76485- 0731 Dec, Diabetes mellitus E11.9 ; Hypothyroid E03.9 ; Angina at rest I20.8 ; CVA (cerebral vascular accident) I63.9 ; Hypercholesterolemia E78.0 ; COPD (chronic obstructive pulmonary disease) J44.9 ; GERD ( gastroesophageal reflux disease) K21.9 and Dysuria R30.0 [address] [id number] [place] [address] 56030- 4264 Nov, [address] [id number] [address]- 7220 Nov, Hypothyroid E03.9 [facility], [place] [id number] [place] [address] 15287- 6346 Nov, Hypothyroid E03.9 ; Angina at rest I20.8 ; CVA (cerebral vascular accident) I63.9 ; Hypercholesterolemia E78.0 ; COPD (chronic obstructive pulmonary disease) J44.9 ; GERD (gastroesophageal reflux disease) K21.9 and Diabetes E11.9 [facility] [id number] [place] [address] 31690 -7603 Oct, Upper respiratory symptom R09.89 [facility], [place] [id number] [place] [address] 14178- 3810 Oct, [facility], [place] [id number] [place] [address] 03405- 8753 Oct, [facility], [place] [id number] [place] [address] 02818- 4356 Oct, [facility], [place] [id number] [place] [address] 92166- 6029 Aug, Diabetes mellitus 250.00 ; Encounter for immunization Z23 ; Hypothyroid E03.9 ; Angina at rest I20.8 ; CVA (cerebral vascular accident) I63.9 ; Hypercholesterolemia E78.0 ; COPD (chronic obstructive pulmonary disease ) J44.9 and GERD (gastroesophageal reflux disease) K21.9 [facility], [place] [id number] [place] [address] 48197- 4803 Jul, [facility], [place] [id number] [place] [address] 19564- 1499 Jun, [facility], [place] [id number] [place] [address] 89124- 1443 Jun, [facility], [place] [address] [address]- 0939 May, [facility], [place] [id number] [address]- 4304 May, Diabetes mellitus 250.00 ; Hypothyroidism 244.9 ; Angina at rest 413.9 ; CVA (cerebral infarction) 434.91 ; Hypercholesterolemia 272.0 ; COPD (chronic obstructive pulmonary disease) 496 and GERD (gastroesophageal reflux disease) 530.81 [facility], [place] [address] [address]- 0106 30 Oct, 2010 [facility], [place] [id number] [place] [address] 39404- 7906 Oct, [facility], [place] [address] [address]- 3206 Oct, [facility], [place] [id number] [place] [address] 81733- 3646 Oct, [facility], [place] [id number] [address] 2546 Sep, [facility], [place] [id number] [address]- 2481 Aug, [facility], [place] [id number] [address]- 6986 Aug, [facility], [place] [id number] [address]- 2426 Aug, [facility], [place] [id number] [address] 2546 Jul, [facility], [place] [id number] [address] 2546 Jan, [facility], [place] [id number] [address]- 2546 Oct, [facility], [place] [id number], [place] [address] 2546 Oct, [facility], [place] [id number] [address]- 2546 Sep, [facility], [place] [id number] [address]- 2015 Apr, [facility], [place] [address] [facility] [id number] [address]- 8127 Dec, IMMUNIZATIONS Vaccine Route Administration Date Status ZOSTER (ZOSTAVAX) SC Subcutaneous Oct 13, 2017 Administered SOCIAL HISTORY Never Assessed REASON FOR VISIT Immunization(s), Shingles-AHarrymanRN PLAN OF CARE VITAL SIGNS Height 60 in 2017-10-13 Weight 162 lbs 2017-10-13 Heart Rate 68 bpm 2017-10-13 Respiratory Rate 24 2017-10-13 Oximetry ambulating w/ oxygen:94 % 2017-10-13 BMI 31.64 kg/m2 2017-10-13 MEDICATIONS Medication Instructions Dosage Frequency Start Date End Date Duration Status Oxygen Portable oxygen concentrator Use 2L nc O2 when up ambulating Oct, Active RESULTS No Results PROCEDURES Procedure Date Ordered Result Body Site MEASURE BLOOD OXYGEN LEVEL Oct 13, 2017 ZOSTER (ZOSTAVAX) Oct 13, 2017 SINGLE IMMUNIZATION ADMIN Oct 13, 2017 INSTRUCTIONS MEDICATIONS ADMINISTERED No Known Medications [...] lobe Pneumonia 02/24/16 Hospitalization History Chest Pain--[facility] 05/19/16 Hospital[facility] History [facility]/16 Hospitalization History Influenza & COPD exacerbation 12/21 Hospitalization History Cardiac Monitoring 01/2018
--- OUTSIDE RECORDS SUMMARY | 2018-07-19 12:50 | XMS REPORT ---
Author Author MARIA MACKEY [facility] Address [address] [place] [address] Care Team Providers Care Newspaper Photographer Name Role Phone MARIA MACKEY Unavailable PROBLEMS Type Condition ICD9-CM Code VUY37-EF Code Onset Dates Condition Status SNOMED Code Problem Angina at rest I20.8 Active 27685946 Problem Peptic ulcer K27.9 Active 65201034 Problem Constipation K59.00 Active 13125819 Problem Hospital discharge follow-up Z09 Active 252682328 Problem History of CVA (cerebrovascular accident) Z86.73 Active 304042217 Problem Type 2 diabetes mellitus without complication, without long-term current use of insulin E11.9 Active 581763728 Problem Hyperlipidemia LDL goal <100 E78.5 Active 48427743 Problem 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 [id number] [address] Apr, [facility] [id number] [address] March, Hypothyroid E03.9 [facility] [address] [address] March, Hypercholesterolemia E78.00 [facility] [id number] [address] March, Hypothyroid E03.9 [place] [address] [address] March, Hypercholesterolemia E78.00 [place] [id number] [place] [address] 87615- 7338 Feb, Hypercholesterolemia E78.00 [place] [id number] [place] [address] 79453- 3716 Feb, Type 2 diabetes mellitus without complication, without long- term current use of insulin E11.9 [place] [id number] [place] [address] 68867- 3568 Feb, Hypothyroid E03.9 [place] [id number] [place] [address] 59488- 0445 Jan, Hypothyroid E03.9 ; 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 ; Hospital discharge follow-up Z09 ; Type 2 diabetes mellitus without complication, without long-term current use of insulin E11.9 ; 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 and History of CVA (cerebrovascular accident) Z86.73 [place] [id number] [place] [address] 97723- 3555 Jan, [place] [id number] [place] [address] 09831- 6692 Jan, [place] [id number] [place] [address] 28180- 6243 Jan, Type 2 diabetes mellitus without complication, without long- term current use of insulin E11.9 [place] [address] [address] Dec, Hospital discharge follow-up Z09 ; COPD (chronic obstructive pulmonary disease) J44.9 ; Type 2 diabetes mellitus without complication, without long-term current use of insulin E11.9 ; Hypothyroid E03.9 and Vaginal discharge N89.8 [place] [id number] [place] [address] 93948- 7411 Dec, Hypothyroid E03.9 [facility] [address] [address] 3662 Dec, Type 2 diabetes mellitus without complication, without long- term current use of insulin E11.9 [facility] [address] [address] Nov, [facility] [id number] [address] Nov, [facility] [address] [address] 10[address] Nov, Pneumonia of right lower lobe due to infectious organism J18.1 ; Orthopnea R06.01 ; COPD with acute exacerbation J44.1 and Fatigue, unspecified type R53.83 [facility] [address] [address] Nov, [facility] [address] [address] Nov, [facility] [address] [address] 0394 Oct, Pneumonia of right lower lobe due to infectious organism J18.1 [facility] [address] [address] 8819 Oct, Pneumonia of right lower lobe due to infectious organism J18.1 [facility] [address] [address] 9971 Oct, Pneumonia of right lower lobe due to infectious organism J18.1 [facility] [address] [address] 0306 Oct, COPD exacerbation J44.1 [facility] [address] [address] Oct, [facility] [address] [address] 9561 Oct, COPD exacerbation J44.1 [place] [address] [address] 8189 11 Oct, 2017 Encounter for immunization Z23 and COPD (chronic obstructive pulmonary disease) J44.9 [place] [id number] [place] [address] 29720- 1727 06 Oct, 2017 Medicare annual wellness visit, subsequent Z00.00 ; History of tobacco use Z87.891 ; Need for Zostavax administration Z23 ; Post-menopausal Z78.0 ; Screening for breast cancer Z12.31 ; Screening for colon cancer Z12.11 ; 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 and Encounter for immunization Z23 [place] [id number] [place] [address] 40980- 9873 Sep, Type 2 diabetes mellitus without complication, without long- term current use of insulin E11.9 [id number] [place] [address] 24939- 0228 Sep, Type 2 diabetes mellitus without complication, without long- term current use of insulin E11.9 ; COPD (chronic obstructive pulmonary disease ) J44.9 ; Hypothyroid E03.9 ; GERD (gastroesophageal reflux disease) K21.9 ; CVA (cerebral vascular accident) I63.9 ; Hyperlipidemia LDL goal <100 E78.5 ; Coronary artery disease of [place] heart with stable angina pectoris, unspecified vessel or lesion type I25.118 and 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 [place] [address] [place] [address] 28087- 8095 Aug, Type 2 diabetes mellitus without complication, without long- term current use of insulin E11.9 [place] [id number] [place] [address] 11453- 9138 Aug, Hypothyroid E03.9 [id number] [place] [address] 32080- 8035 Aug, Type 2 diabetes mellitus without complication, without long- term current use of insulin E11.9 ; COPD (chronic obstructive pulmonary disease ) J44.9 ; Hypothyroid E03.9 ; GERD (gastroesophageal reflux disease) K21.9 ; CVA (cerebral vascular accident) I63.9 ; Hyperlipidemia LDL goal <100 E78.5 ; Coronary artery disease of [place] heart with stable angina pectoris, unspecified vessel or lesion type I25.118 and Encounter for immunization Z23 [place] [address] [address] Jul, Hypothyroid E03.9 and Hypercholesterolemia E78.00 [place] [address] [address]- [address]44 Jul, Hypothyroid E03.9 ; Diabetes mellitus E11.9 and Hypercholesterolemia E78.0 [place] [address] 12207- 1155 Jul, Hypothyroid E03.9 ; Diabetes mellitus E11.9 and Hypercholesterolemia E78.0 [place] [address] 43224- 5551 May, CVA (cerebral vascular accident) I63.9 and Dizziness R42 [place] [address] [address]- [address] May, Dehydration E86.0 ; CVA (cerebral vascular accident) I63.9 ; COPD (chronic obstructive pulmonary disease) J44.9 and Dizziness R42 [place] [id number] [place] [address] 57694- 1406 March, Diabetes mellitus E11.9 ; Angina at rest I20.8 ; COPD ( chronic obstructive pulmonary disease) J44.9 ; GERD (gastroesophageal reflux disease) K21.9 ; Hypercholesterolemia E78.00 ; CVA (cerebral vascular accident) I63.9 and Hypothyroid E03.9 [place] [address] 92185- 4734 Jan, Hypothyroid E03.9 and Diabetes mellitus E11.9 [place] [id number] [place] [address] 01235- 5819 Jan, [place] [address] [address]- 6174 Jan, Diabetes mellitus E11.9 [facility] [address] [address] Jan, [facility] [id number] [place] [address] 94081- 3325 Dec, Diabetes mellitus E11.9 ; CVA (cerebral vascular accident) I63.9 ; COPD (chronic obstructive pulmonary disease) J44.9 ; Hypothyroid E03.9 ; GERD (gastroesophageal reflux disease) K21.[address] [facility] [address] [address]- 94[address] Nov, Diabetes mellitus E11.9 [facility] [id number] [place] [address] 87145- 1227 Nov, [facility] [id number] [place] [address] 16652- 7431 Nov, [facility] [id number] [place] [address] 83666- 6030 Nov, [facility] [id number] [place] [address] 88199- 0774 Nov, Diabetes mellitus E11.9 [facility] [id number] [place] [address] 67848- 3664 Oct, Hypothyroid E03.9 [facility] [address] [address]- 3337 Oct, Diabetes mellitus E11.9 [facility] [address] [address]- 5882 Oct, COPD (chronic obstructive pulmonary disease) J44.9 [facility] [address] [address]- 3687 Oct, [facility] [address] [address]- 1658 Sep, Diabetes mellitus E11.9 ; Angina at rest I20.8 ; Hypercholesterolemia E78.0 ; COPD (chronic obstructive pulmonary disease) J44.9 ; GERD (gastroesophageal reflux disease) K21.9 ; Dysuria R30.0 ; Acquired hypothyroidism E03.9 ; Encounter for immunization Z23 and Acute cystitis without hematuria N30.00 [facility] [id number] [place] [address] 16216- 7191 Sep, Diabetes mellitus E11.9 [facility] [id number] [place] [address] 98089 -7486 Aug, [facility] [id number] [place] [address] 18579- 7214 Aug, Diabetes mellitus E11.9 [place] [address] 43599- 4186 Jun, Angina at rest I20.8 ; CVA (cerebral vascular accident) I63.9 ; Diabetes mellitus E11.9 ; Hypercholesterolemia E78.0 ; COPD (chronic obstructive pulmonary disease) J44.9 ; GERD (gastroesophageal reflux disease) K21.9 ; Peptic ulcer K27.[address] [facility] [id number] [place] [address] 05128- 4345 Jun, [place] [id number] [place] [address] 33861- 0742 May, Diabetes mellitus E11.9 ; CVA (cerebral vascular accident) I63.9 ; COPD (chronic obstructive pulmonary disease) J44.9 and Angina at rest I20.8 [facility] [id number] [place] [address] 94013- 3460 May, [place] [id number] [place] [address] 66113- 5042 May, Diabetes mellitus E11.9 ; Hypothyroid E03.9 ; Angina at rest I20.8 ; CVA (cerebral vascular accident) I63.9 ; COPD (chronic obstructive pulmonary disease) J44.9 ; GERD (gastroesophageal reflux disease) K21.9 and Hypercholesterolemia E78.0 [place] [address] [place] [address]- 6468 Apr, Hypercholesterolemia E78.0 [place] [address] [address]96- [address]70 Apr, [facility] [id number] [place] [address] 19672- 3797 March, Diabetes mellitus E11.9 ; Hypothyroid E03.9 ; Hypercholesterolemia E78.0 ; COPD (chronic obstructive pulmonary disease) J44.9 ; GERD (gastroesophageal reflux disease) K21.9 ; Constipation K59.00 ; CVA ( cerebral vascular accident) I63.9 and Angina at rest I20.8 [place] [address] 63800- 1564 March, [address] [id number] [place] [address] 90190- 4269 Feb, [address] [address] 88483- 1350 Feb, [facility] [id number] [place] [address] 83057- 4894 Feb, [address] [id number] [place] [address] 02769- 7693 Jan, Diabetes mellitus E11.9 ; Hypercholesterolemia E78.0 ; CVA ( cerebral vascular accident) I63.9 ; GERD (gastroesophageal reflux disease) K21.9 ; Hypothyroid E03.9 and Angina at rest I20.8 [address] [place] [id number] [place] [address] 76172- 9430 Dec, Diabetes mellitus E11.9 ; Hypothyroid E03.9 ; Angina at rest I20.8 ; CVA (cerebral vascular accident) I63.9 ; Hypercholesterolemia E78.0 ; COPD (chronic obstructive pulmonary disease) J44.9 ; GERD ( gastroesophageal reflux disease) K21.9 and Dysuria R30.0 [address] [place] [id number] [place] [address] 69562- 6564 Nov, [address] [place] [id number] [address]- 6493 Nov, Hyp[address]roid E03.9 [facility] [id number] [place] [address] 36497- 4448 Nov, Hypothyroid E03.9 ; Angina at rest I20.8 ; CVA (cerebral vascular accident) I63.9 ; Hypercholesterolemia E78.0 ; COPD (chronic obstructive pulmonary disease) J44.9 ; GERD (gastroesophageal reflux disease) K21.9 and Diabetes E11.9 [facility] [id number] [place] [address] 96282 -2186 Oct, Upper respiratory symptom R09.89 [facility] [id number] [place] [address] 00302- 3305 Oct, [facility] [id number] [place] [address] 67671- 2129 Oct, [facility] [id number] [place] [address] 88049- 8469 Oct, [facility] [id number] [place] [address] 05284- 5107 Aug, Diabetes mellitus 250.00 ; Encounter for immunization Z23 ; Hypothyroid E03.9 ; Angina at rest I20.8 ; CVA (cerebral vascular accident) I63.9 ; Hypercholesterolemia E78.0 ; COPD (chronic obstructive pulmonary disease ) J44.9 and GERD (gastroesophageal reflux disease) K21.9 [facility] [id number] [place] [address] 93614- 0223 Jul, [facility] [id number] [place] [address] 38594- 3638 Jun, [facility] [id number] [place] [address] 78801- 3979 Jun, [facility] [address] [address]- 3717 May, [facility] [id number] [address]- 8792 May, Diabetes mellitus 250.00 ; Hypothyroidism 244.9 ; Angina at rest 413.9 ; CVA (cerebral infarction) 434.91 ; Hypercholesterolemia 272.0 ; COPD (chronic obstructive pulmonary disease) 496 and GERD (gastroesophageal reflux disease) 530.81 [facility] [address] [address]- 2296 [address], 2010 [facility] [id number] [place] [address] 84329- 2086 Oct, [facility] [address] [address]- 9636 Oct, [facility] [id number] [place] [address] 09502- 1236 Oct, [facility] [id number] [address] 2546 Sep, [facility] [address] [address]- 8326 Aug, [facility] [address] [address]- 0036 Aug, [facility] [address] [address]- 4496 Aug, [facility] [address] [address] 2546 Jul, [facility] [address] [address] [address], [facility] [address] [address]- 2546 Oct, [facility] [address] [address] 2546 Oct, [facility] [address] [address]- 2546 Sep, [facility] [id number] [address]- 3158 Apr, [facility] [address] [facility] [id number] [address]- 8889 10 Dec, 2008 IMMUNIZATIONS No Known Immunizations SOCIAL HISTORY Never Assessed REASON FOR VISIT Requests return call PLAN OF CARE VITAL SIGNS MEDICATIONS Unknown [...] upper lobe Pneumonia 02/24/16 Hospitalization History Chest Pain--[facility] 05/19/16 Hospitalization History Chest pain--[facility] 06/18/16 Hospitalization History Influenza & COPD exacerbation 12/21 Hospitalization History Cardiac Monitoring 01/2018
--- OUTSIDE RECORDS SUMMARY | 2018-07-19 12:51 | XMS REPORT ---
Author Author MARIA MACKEY [facility] Address [address] [place] [address] Care Team Providers Care Student Development Dean Name Role Phone MARIA MACKEY Unavailable PROBLEMS Type Condition ICD9-CM Code BZU87-VP Code Onset Dates Condition Status SNOMED Code Problem Angina at rest I20.8 Active 14177383 Problem Peptic ulcer K27.9 Active 86822033 Problem Constipation K59.00 Active 80028230 Problem Hospital discharge follow-up Z09 Active 135184348 Problem History of CVA (cerebrovascular accident) Z86.73 Active 206041235 Problem Type 2 diabetes mellitus without complication, without long-term current use of insulin E11.9 Active 906175089 Problem Hyperlipidemia LDL goal <100 E78.5 Active 48315610 Problem 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 Active 7225888934499 Problem 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 Active 443217474948 Problem Former smoker Z87.891 Active 1113364 Problem Hypothyroid E03.9 Active 33617151 Problem COPD (chronic obstructive pulmonary disease) J44.9 Active 29290196 Problem Osteopenia of spine M85.88 Active 112942590 Problem GERD (gastroesophageal reflux disease) K21.9 Active 656038948 ALLERGIES Substance Reaction Event Type Date Status Ultram hives Drug Allergy Oct, Active Fentanyl hives Drug Allergy Oct, Active ENCOUNTERS Encounter Location Date Diagnosis [facility] [address] [facility] [id number] [address] Apr, [facility] [address] [address] March, Hypothyroid E03.9 [facility] [id number] [address] March, Hypercholesterolemia E78.00 [facility] [address] [place] [address] 65768- 2548 March, Hypothyroid E03.9 [place] [id number] [place] [address] 26574- 0725 March, Hypercholesterolemia E78.00 [place] [id number] [place] [address] 56140- 0206 Feb, Hypercholesterolemia E78.00 [place] [id number] [place] [address] 04602- 6996 Feb, Type 2 diabetes mellitus without complication, without long- term current use of insulin E11.9 [place] [id number] [place] [address] 34654- 9482 Feb, Hypothyroid E03.9 [place] [id number] [place] [address] 44120- 2718 Jan, Hypothyroid E03.9 ; 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 ; Hospital discharge follow-up Z09 ; Type 2 diabetes mellitus without complication, without long-term current use of insulin E11.9 ; 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 and History of CVA (cerebrovascular accident) Z86.73 [place] [address] [place] [address] 59683- 0652 Jan, [place] [address] [address] 18[address] Jan, [place] [address] [place] [address] 16859- 5436 Jan, Type 2 diabetes mellitus without complication, without long- term current use of insulin E11.9 [place] [id number] [place] [address] 90140- 6364 Dec, Hospital discharge follow-up Z09 ; COPD (chronic obstructive pulmonary disease) J44.9 ; Type 2 diabetes mellitus without complication, without long-term current use of insulin E11.9 ; Hypothyroid E03.9 and Vaginal discharge N89.8 [place] [address] [address] Dec, Hypothyroid E03.9 [facility] [id number] [place] [address] 25237- 0506 Dec, Type 2 diabetes mellitus without complication, without long- term current use of insulin E11.9 [facility] [address] [address] Nov, [facility] [id number] [place] [address] 82720- 1068 Nov, [facility] [address] [place] [address] 10709- 3767 Nov, Pneumonia of right lower lobe due to infectious organism J18.1 ; Orthopnea R06.01 ; COPD with acute exacerbation J44.1 and Fatigue, unspecified type R53.83 [place] [id number] [place] [address] 14952- 9144 Nov, [place] [address] [address] 6[address] Nov, [facility] [id number] [place] [address] 90055- 7651 Oct, Pneumonia of right lower lobe due to infectious organism J18.1 [place] [address] [address] 5498 Oct, Pneumonia of right lower lobe due to infectious organism J18.1 [facility] [address] [address] 2540 Oct, Pneumonia of right lower lobe due to infectious organism J18.1 [facility] [address] [address] 4752 Oct, COPD exacerbation J44.1 [facility] [address] [address] 2[address] Oct, [facility] [id number] [place] [address] 43135- 2702 20 Oct, 2017 COPD exacerbation J44.1 [place] [address] [address]- 6944 11 Oct, 2017 Encounter for immunization Z23 and COPD (chronic obstructive pulmonary disease) J44.9 [place] [address] [address]- 0928 Oct, Medicare annual wellness visit, subsequent Z00.00 ; History of tobacco use Z87.891 ; Need for Zostavax administration Z23 ; Post-menopausal Z78.0 ; Screening for breast cancer Z12.31 ; Screening for colon cancer Z12.11 ; 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 and Encounter for immunization Z23 [place] [address] [address]- 7055 Sep, Type 2 diabetes mellitus without complication, without long- term current use of insulin E11.[address] [address]- [address] Sep, Type 2 diabetes mellitus without complication, without long- term current use of insulin E11.9 ; COPD (chronic obstructive pulmonary disease ) J44.9 ; Hypothyroid E03.9 ; GERD (gastroesophageal reflux disease) K21.9 ; CVA (cerebral vascular accident) I63.9 ; Hyperlipidemia LDL goal <100 E78.5 ; Coronary artery disease of chene[place] heart with stable angina pectoris, unspecified vessel or lesion type I25.118 and 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 [place] [id number] [place] [address] 10686- 9719 Aug, Type 2 diabetes mellitus without complication, without long- term current use of insulin E11.9 [place] [address] 84903- 8449 Aug, Hypothyroid E03.9 [place] [id number] [place] [address] 17221- 6297 Aug, Type 2 diabetes mellitus without complication, without long- term current use of insulin E11.9 ; COPD (chronic obstructive pulmonary disease ) J44.9 ; Hypothyroid E03.9 ; GERD (gastroesophageal reflux disease) K21.9 ; CVA (cerebral vascular accident) I63.9 ; Hyperlipidemia LDL goal <100 E78.5 ; Coronary artery disease of che[place] heart with stable angina pectoris, unspecified vessel or lesion type I25.118 and Encounter for immunization Z23 [place] [address] [address] Jul, Hypothyroid E03.9 and Hypercholesterolemia E78.00 [place] [address] 42938- 3167 Jul, Hypothyroid E03.9 ; Diabetes mellitus E11.9 and Hypercholesterolemia E78.0 [place] [address] [address]- 0907 Jul, Hypothyroid E03.9 ; Diabetes mellitus E11.9 and Hypercholesterolemia E78.0 [place] [address] 56266- 2955 May, CVA (cerebral vascular accident) I63.9 and Dizziness R42 [address] [address]- 5179 May, Dehydration E86.0 ; CVA (cerebral vascular accident) I63.9 ; COPD (chronic obstructive pulmonary disease) J44.9 and Dizziness R42 [place] [address] 02470- 6625 March, Diabetes mellitus E11.9 ; Angina at rest I20.8 ; COPD ( chronic obstructive pulmonary disease) J44.9 ; GERD (gastroesophageal reflux disease) K21.9 ; Hypercholesterolemia E78.00 ; CVA (cerebral vascular accident) I63.9 and Hypothyroid E03.9 [place] [address] 78186- 5992 Jan, Hypothyroid E03.9 and Diabetes mellitus E11.9 [place] [address] 00748- 9324 Jan, [facility] [address] [address] 25[address] Jan, Diabetes mellitus E11.9 [facility] [id number] [address] 2546 Jan, [facility] [address] [address] 8731 Dec, Diabetes mellitus E11.9 ; CVA (cerebral vascular accident) I63.9 ; COPD (chronic obstructive pulmonary disease) J44.9 ; Hypothyroid E03.9 ; GERD (gastroesophageal reflux disease) K21.9 and Hypercholesterolemia E78.00 [facility] [id number] [place] [address] 06769- 4473 Nov, Diabetes mellitus E11.9 [facility] [address], [place] [address] Nov, [facility] [id number] [place] [address] 45552- 5590 Nov, [facility] [address], [place] [address]- 4038 Nov, [facility] [address] [place] [address] 72094- 5993 Nov, Diabetes mellitus E11.9 [facility] [address] [address]- 4591 Oct, Hypothyroid E03.9 [facility] [address], [place] [address] 2540 Oct, Diabetes mellitus E11.9 [facility] [address], [place] [address]- 8037 Oct, COPD (chronic obstructive pulmonary disease) J44.9 [facility] [address] [address]- 2546 Oct, [facility] [address] [address]- 7211 Sep, Diabetes mellitus E11.9 ; Angina at rest I20.8 ; Hypercholesterolemia E78.0 ; COPD (chronic obstructive pulmonary disease) J44.9 ; GERD (gastroesophageal reflux disease) K21.9 ; Dysuria R30.0 ; Acquired hypothyroidism E03.9 ; Encounter for immunization Z23 and Acute cystitis without hematuria N30.00 [facility] [id number] [place] [address] 03683- 0350 Sep, Diabetes mellitus E11.9 [facility] [id number] [place] [address] 75864 -5281 Aug, [facility] [id number] [place] [address] 01892- 4342 Aug, Diabetes mellitus E11.9 [facility] [id number] [place] [address] 54728- 9056 Jun, Angina at rest I20.8 ; CVA (cerebral vascular accident) I63.9 ; Diabetes mellitus E11.9 ; Hypercholesterolemia E78.0 ; COPD (chronic obstructive pulmonary disease) J44.9 ; GERD (gastroesophageal reflux disease) K21.9 ; Peptic ulcer K27.9 and Hypothyroid E03.9 [facility] [id number] [place] [address] 75961- 1449 Jun, [facility] [id number] [place] [address] 97705- 6856 May, Diabetes mellitus E11.9 ; CVA (cerebral vascular accident) I63.9 ; COPD (chronic obstructive pulmonary disease) J44.9 and Angina at rest I20.8 [facility] [id number] [place] [address] 24586- 4154 May, [place] [id number] [place] [address] 85904- 2617 May, Diabetes mellitus E11.9 ; Hypothyroid E03.9 ; Angina at rest I20.8 ; CVA (cerebral vascular accident) I63.9 ; COPD (chronic obstructive pulmonary disease) J44.9 ; GERD (gastroesophageal reflux disease) K21.9 and Hypercholesterolemia E78.0 [place] [id number] [place] [address] 79218- 3221 Apr, Hypercholesterolemia E78.0 [place] [id number] [place] [address] 49061- 6190 Apr, [place] [id number] [place] [address] 02460- 5238 March, Diabetes mellitus E11.9 ; Hypothyroid E03.9 ; Hypercholesterolemia E78.0 ; COPD (chronic obstructive pulmonary disease) J44.9 ; GERD (gastroesophageal reflux disease) K21.9 ; Constipation K59.00 ; CVA ( cerebral vascular accident) I63.9 and Angina at rest I20.8 [place] [id number] [place] [address] 58742- 4109 March, [place] [id number] [place] [address] 90110- 4822 Feb, [place] [id number] [place] [address] 71545- 4623 Feb, [place] [id number] [place] [address] 04607- 0525 Feb, [place] [id number] [place] [address] 65139- 7950 Jan, Diabetes mellitus E11.9 ; Hypercholesterolemia E78.0 ; CVA ( cerebral vascular accident) I63.9 ; GERD (gastroesophageal reflux disease) K21.9 ; Hypothyroid E03.9 and Angina at rest I20.8 [place] [id number] [place] [address] 07117- 9164 Dec, Diabetes mellitus E11.9 ; Hypothyroid E03.9 ; Angina at rest I20.8 ; CVA (cerebral vascular accident) I63.9 ; Hypercholesterolemia E78.0 ; COPD (chronic obstructive pulmonary disease) J44.9 ; GERD ( gastroesophageal reflux disease) K21.9 and Dysuria R30.0 [place] [address] [address]- 2635 Nov, [facility] [id number] [place] [address] 76553- 3868 Nov, Hypothyroid E03.9 [facility] [id number] [place] [address] 63528- 1964 Nov, Hypothyroid E03.9 ; Angina at rest I20.8 ; CVA (cerebral vascular accident) I63.9 ; Hypercholesterolemia E78.0 ; COPD (chronic obstructive pulmonary disease) J44.9 ; GERD (gastroesophageal reflux disease) K21.9 and Diabetes E11.9 [facility] [id number] [place] [address] 30749 -4258 Oct, Upper respiratory symptom R09.89 [facility] [id number] [place] [address] 66198- 8817 Oct, [facility] [id number] [place] [address] 42158- 0937 Oct, [facility] [id number] [place] [address] 12765- 1607 Oct, [facility] [id number] [place] [address] 01817- 6718 Aug, Diabetes mellitus 250.00 ; Encounter for immunization Z23 ; Hypothyroid E03.9 ; Angina at rest I20.8 ; CVA (cerebral vascular accident) I63.9 ; Hypercholesterolemia E78.0 ; COPD (chronic obstructive pulmonary disease ) J44.9 and GERD (gastroesophageal reflux disease) K21.9 [facility] [address] [place] [address] 91829- 9855 Jul, [facility] [id number] [place] [address] 87864- 8790 Jun, [facility] [id number] [place] [address] 68562- 2565 Jun, [facility] [id number] [place] [address] 41316- 5786 May, [facility] [address] [address]- 6095 May, Diabetes mellitus 250.00 ; Hypothyroidism 244.9 ; Angina at rest 413.9 ; CVA (cerebral infarction) 434.91 ; Hypercholesterolemia 272.0 ; COPD (chronic obstructive pulmonary disease) 496 and GERD (gastroesophageal reflux disease) 530.81 [facility] [id number] [place] [address] 86019- 3056 Oct, [facility] [address] [address]- 4353 Oct, [facility] [id number] [place] [address] 00229- 2416 Oct, [facility] [id number] [place] [address] 00356- 6887 Oct, [facility] [id number] [place] [address] 86252- 7934 Sep, [facility] [address] 7340 Aug, [facility] [address] [place] [address] 67654- 1514 Aug, [facility] [address] [address]- 5746 Aug, [facility] [address], [place] [address]- 9876 Jul, [facility] [address] [address]- 1698 Jan, [facility] [address], [place] [address]- 5656 Oct, [facility] [address] [address]- 2546 Oct, [facility] [id number] [place] [address] 62806- 2546 Sep, [facility] [address] [facility] [id number] [address]- 2546 Apr, [facility] [address] [facility] [id number] [address]- 2546 Dec, IMMUNIZATIONS Vaccine Route Administration Date Status ROCEPHIN 1 GM (IM) IM Intramuscular Oct 22, 2017 Administered DEXAMETHASONE 4MG/ML (PER 1 MG) IM Intramuscular Oct 22, 2017 Administered SOCIAL HISTORY Never Assessed REASON FOR VISIT Cold symptoms--Elizabeth, Haven't felt good for 2-3 days PLAN OF CARE Activity Details Follow Up if not improving with PCP or reg follow up Reason: VITAL SIGNS Height 60 in 2017-10-22 Weight 163.5 lbs 2017-10-22 Temperature 98.5 degrees Fahrenheit 2017-10-22 Heart Rate 68 bpm 2017-10-22 Respiratory Rate 24 2017-10-22 BMI 31.93 kg/m2 2017-10-22 Blood pressure systolic 126 mmHg 2017-10-22 Blood pressure diastolic 72 mmHg 2017-10-22 MEDICATIONS Medication Instructions Dosage Frequency Start Date End Date Duration Status Farxiga 5 mg Orally Once a day 1 tablet 24h Nov, 30 day(s) Active Fenofibrate 160 MG Orally Once a day 1 tablet with a meal 24h Jan, Active Oxygen Portable oxygen concentrator Use 2L nc O2 when up ambulating Oct, Active Levaquin 500 mg Orally Once a day 1 tablet 24h Oct, Oct, 10 day(s) Active Atorvastatin Calcium 40 mg Orally Once a day at HS 1 tablet Active PredniSONE 20 mg Orally Once a day 2 tablets 24h Oct, Oct, 05 days Active Clopidogrel Bisulfate 75 MG Orally Once a day 1 tablet 24h Active Farxiga 5 Orally Once a day 1 tablet 24h 30 Not-Taking Acetaminophen 500 MG Orally every 6 hrs 2 tablets 6h Active Ranexa 1000 MG Orally Twice a day 1 tablet 12h Active Lancets test one time per day as directed Active NitroMist 400 MCG/SPRAY Translingual Once a day 1 spray under the tongue 24h Active OneTouch Ultra Test - In Vitro 3 times a day USE ONE STRIP TO CHECK GLUCOSE ONCE DAILY DIRECTED 8h Active Levothyroxine Sodium 100 MCG Orally Once a day 1 tablet 24h Nov, Active Protonix 40 mg Orally twice a day 1 tablet 12h Active Janumet 50-1000 mg Orally Twice a day 1 tablet with meals 12h Active Isosorbide Mononitrate ER 60 MG Orally Once a day 1 tablet 24h Active RESULTS Name Result Date Reference Range Xray : Chest (IN HOUSE) 2017-10-22 PROCEDURES Procedure Date Ordered Result Body Site CHEST X-RAY Oct 22, 2017 [facility] VISIT ESTABLISHED PATIENT Oct 22, 2017 DEXAMETHASONE 4MG/ML (PER 1 MG) Oct 22, 2017 ROCEPHIN 1 GM (IM) Oct 22, 2017 THER/PROPH/DIAG INJ, SC/IM Oct 22, 2017 INSTRUCTIONS MEDICATIONS ADMINISTERED No Known Medications [...] lobe Pneumonia 02/24/16 Hospitalization History Chest Pain--[facility] 05/19/16 Hospitalization History Chest pain--[facility] 06/18/16 Hospitalization History Influenza & COPD exacerbation 12/21 Hospitalization History Cardiac Monitoring 01/2018
--- OUTSIDE RECORDS SUMMARY | 2018-07-19 12:52 | XMS REPORT ---
Author Author MARIA MACKEY [facility] Address [address] [place] [address] Care Team Providers Care Etcher [employer] Name Role Phone MARIA MACKEY Unavailable PROBLEMS Type Condition ICD9-CM Code SCF07-KW Code Onset Dates Condition Status SNOMED Code Problem Angina at rest I20.8 Active 79856213 Problem Peptic ulcer K27.9 Active 77282691 Problem Constipation K59.00 Active 07835412 Problem Hospital discharge follow-up Z09 Active 332622277 Problem History of CVA (cerebrovascular accident) Z86.73 Active 470863112 Problem Type 2 diabetes mellitus without complication, without long-term current use of insulin E11.9 Active 812976721 Problem Hyperlipidemia LDL goal <100 E78.5 Active 48915472 Problem 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 Active 9379540170828 Problem 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 Active 474818726650 Problem Former smoker Z87.891 Active 6034252 Problem Hypothyroid E03.9 Active 93697623 Problem COPD (chronic obstructive pulmonary disease) J44.9 Active 12275291 Problem Osteopenia of spine M85.88 Active 934944206 Problem GERD (gastroesophageal reflux disease) K21.9 Active 368503051 ALLERGIES No Information ENCOUNTERS Encounter Location Date Diagnosis [facility] [id number] [address] Apr, [facility] [id number] [address] March, Hypothyroid E03.9 [facility] [address] [address] March, Hypercholesterolemia E78.00 [facility] [id number] [address] March, Hypothyroid E03.9 [facility] [place] [address] [address] March, Hypercholesterolemia E78.00 [facility] [id number] [place] [address]32- 4096 Feb, Hypercholesterolemia E78.00 [facility] [id number] [place] [address] 32902- 3297 Feb, Type 2 diabetes mellitus without complication, without long- term current use of insulin E11.9 [facility] [id number] [place] [address] 75890- 6238 Feb, Hypothyroid E03.9 [facility] [id number] [place] [address] 66972- 5349 Jan, Hypothyroid E03.9 ; 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 ; Hospital discharge follow-up Z09 ; Type 2 diabetes mellitus without complication, without long-term current use of insulin E11.9 ; 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 and History of CVA (cerebrovascular accident) Z86.73 [place] [id number] [place] [address] 71067- 2660 Jan, [place] [id number] [place] [address] 31767- 3856 Jan, [place] [id number] [place] [address] 02676- 5229 Jan, Type 2 diabetes mellitus without complication, without long- term current use of insulin E11.9 [facility] [place] [address] [address] Dec, Hospital discharge follow-up Z09 ; COPD (chronic obstructive pulmonary disease) J44.9 ; Type 2 diabetes mellitus without complication, without long-term current use of insulin E11.9 ; Hypothyroid E03.9 and Vaginal discharge N89.8 [facility] [place] [id number] [place] [address] 56633- 4389 Dec, Hypothyroid E03.9 [facility] [address] [address] Dec, Type 2 diabetes mellitus without complication, without long- term current use of insulin E11.9 [facility] [address] [address] Nov, [facility] [id number] [address] Nov, [facility] [address] [address] Nov, Pneumonia of right lower lobe due to infectious organism J18.1 ; Orthopnea R06.01 ; COPD with acute exacerbation J44.1 and Fatigue, unspecified type R53.83 [facility] [address] [address] Nov, [facility] [address] [address] Nov, [facility] [address] [address] 56[address] Oct, Pneumonia of right lower lobe due to infectious organism J18.1 [facility] [address] [address] 4400 Oct, Pneumonia of right lower lobe due to infectious organism J18.1 [facility] [address] [address] 8[address] Oct, Pneumonia of right lower lobe due to infectious organism J18.1 [facility] [address] [address] 99[address] Oct, COPD exacerbation J44.1 [facility] [address] [address] 25[address] Oct, [facility] [address] [address] 4[address] Oct, COPD exacerbation J44.1 [place] [address] [address] 11 Oct, 2017 Encounter for immunization Z23 and COPD (chronic obstructive pulmonary disease) J44.9 [facility] [id number] [place] [address] 54450- 5471 06 Oct, 2017 Medicare annual wellness visit, subsequent Z00.00 ; History of tobacco use Z87.891 ; Need for Zostavax administration Z23 ; Post-menopausal Z78.0 ; Screening for breast cancer Z12.31 ; Screening for colon cancer Z12.11 ; 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 and Encounter for immunization Z23 [facility] [place] [id number] [place] [address] 96933- 9330 Sep, Type 2 diabetes mellitus without complication, without long- term current use of insulin E11.9 [place] [id number] [place] [address] 24612- 6919 Sep, Type 2 diabetes mellitus without complication, without long- term current use of insulin E11.9 ; COPD (chronic obstructive pulmonary disease ) J44.9 ; Hypothyroid E03.9 ; GERD (gastroesophageal reflux disease) K21.9 ; CVA (cerebral vascular accident) I63.9 ; Hyperlipidemia LDL goal <100 E78.5 ; Coronary artery disease of level[place] heart with stable angina pectoris, unspecified vessel or lesion type I25.118 and 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 [place] [id number] [place] [address] 79922- 7667 Aug, Type 2 diabetes mellitus without complication, without long- term current use of insulin E11.9 [facility] [place] [id number] [place] [address] 46360- 2309 Aug, Hypothyroid E03.9 [place] [id number] [place] [address] 77787- 8431 Aug, Type 2 diabetes mellitus without complication, without long- term current use of insulin E11.9 ; COPD (chronic obstructive pulmonary disease ) J44.9 ; Hypothyroid E03.9 ; GERD (gastroesophageal reflux disease) K21.9 ; CVA (cerebral vascular accident) I63.9 ; Hyperlipidemia LDL goal <100 E78.5 ; Coronary artery disease of levelock heart with stable angina pectoris, unspecified vessel or lesion type I25.118 and Encounter for immunization Z23 [place] [address] [address] Jul, Hypothyroid E03.9 and Hypercholesterolemia E78.00 [place] [address] [address] Jul, Hypothyroid E03.9 ; Diabetes mellitus E11.9 and Hypercholesterolemia E78.0 [place] [address] [address]- [address] Jul, Hypothyroid E03.9 ; Diabetes mellitus E11.9 and Hypercholesterolemia E78.0 [place] [address] [address]- [address] May, CVA (cerebral vascular accident) I63.9 and Dizziness R42 [place] [address] [address]- [address] May, Dehydration E86.0 ; CVA (cerebral vascular accident) I63.9 ; COPD (chronic obstructive pulmonary disease) J44.9 and Dizziness R42 [place] [id number] [place] [address] 46292- 8068 March, Diabetes mellitus E11.9 ; Angina at rest I20.8 ; COPD ( chronic obstructive pulmonary disease) J44.9 ; GERD (gastroesophageal reflux disease) K21.9 ; Hypercholesterolemia E78.00 ; CVA (cerebral vascular accident) I63.9 and Hypothyroid E03.9 [place] [address] [address]- 6817 Jan, Hypothyroid E03.9 and Diabetes mellitus E11.9 [place] [id number] [place] [address] 93473- 2298 Jan, [place] [address] [address]- 0173 Jan, Diabetes mellitus E11.9 [facility] [address] [address] Jan, [facility] [id number] [place] [address] 23411- 1319 Dec, Diabetes mellitus E11.9 ; CVA (cerebral vascular accident) I63.9 ; COPD (chronic obstructive pulmonary disease) J44.9 ; Hypothyroid E03.9 ; GERD (gastroesophageal reflux disease) K21.9 and Hypercholesterolemia E78.00 [facility] [address] [address] 0[address] Nov, Diabetes mellitus E11.9 [facility] [id number] [place] [address] 89529- 7236 Nov, [facility] [id number] [place] [address] 91972- 8372 Nov, [facility] [id number] [place] [address] 86503- 7625 Nov, [facility] [id number] [place] [address] 04867- 2494 Nov, Diabetes mellitus E11.9 [facility] [id number] [place] [address] 50055- 0160 Oct, Hypothyroid E03.9 [facility] [address] [address]- 2664 Oct, Diabetes mellitus E11.9 [facility] [address] [address]- 7935 Oct, COPD (chronic obstructive pulmonary disease) J44.9 [facility] [address] [address]- 7500 Oct, [facility] [address] [address]- 1052 Sep, Diabetes mellitus E11.9 ; Angina at rest I20.8 ; Hypercholesterolemia E78.0 ; COPD (chronic obstructive pulmonary disease) J44.9 ; GERD (gastroesophageal reflux disease) K21.9 ; Dysuria R30.0 ; Acquired hypothyroidism E03.9 ; Encounter for immunization Z23 and Acute cystitis without hematuria N30.00 [facility] [id number] [place] [address] 78801- 8515 Sep, Diabetes mellitus E11.9 [facility] [id number] [place] [address] 68566 -0503 Aug, [facility] [id number] [place] [address] 05286- 7169 Aug, Diabetes mellitus E11.9 [place] [address] 96[address]- 2372 Jun, Angina at rest I20.8 ; CVA (cerebral vascular accident) I63.9 ; Diabetes mellitus E11.9 ; Hypercholesterolemia E78.0 ; COPD (chronic obstructive pulmonary disease) J44.9 ; GERD (gastroesophageal reflux disease) K21.9 ; Peptic ulcer K27.9 and Hypothyroid E03.9 [facility] [id number] [place] [address] 55285- 9883 Jun, [place] [id number] [place] [address] 18818- 5862 May, Diabetes mellitus E11.9 ; CVA (cerebral vascular accident) I63.9 ; COPD (chronic obstructive pulmonary disease) J44.9 and Angina at rest I20.8 [facility] [id number] [place] [address] 80283- 0851 May, [place] [id number] [place] [address] 00984- 0065 May, Diabetes mellitus E11.9 ; Hypothyroid E03.9 ; Angina at rest I20.8 ; CVA (cerebral vascular accident) I63.9 ; COPD (chronic obstructive pulmonary disease) J44.9 ; GERD (gastroesophageal reflux disease) K21.9 and Hypercholesterolemia E78.0 [place] [address] [place] [address]- 4007 Apr, Hypercholesterolemia E78.0 [place] [address] [address]- [address]85 Apr, [facility] [id number] [place] [address] 89107- 9156 March, Diabetes mellitus E11.9 ; Hypothyroid E03.9 ; Hypercholesterolemia E78.0 ; COPD (chronic obstructive pulmonary disease) J44.9 ; GERD (gastroesophageal reflux disease) K21.9 ; Constipation K59.00 ; CVA ( cerebral vascular accident) I63.9 and Angina at rest I20.8 [place] [address] [address]- 9994 March, [place] [id number] [place] [address] 11967- 7584 Feb, [place] [address] 96303- 9270 Feb, [facility] [id number] [place] [address] 55017- 6609 Feb, [place] [id number] [place] [address] 58838- 1216 Jan, Diabetes mellitus E11.9 ; Hypercholesterolemia E78.0 ; CVA ( cerebral vascular accident) I63.9 ; GERD (gastroesophageal reflux disease) K21.9 ; Hypothyroid E03.9 and Angina at rest I20.8 [place] [id number] [place] [address] 62077- 8094 Dec, Diabetes mellitus E11.9 ; Hypothyroid E03.9 ; Angina at rest I20.8 ; CVA (cerebral vascular accident) I63.9 ; Hypercholesterolemia E78.0 ; COPD (chronic obstructive pulmonary disease) J44.9 ; GERD ( gastroesophageal reflux disease) K21.9 and Dysuria R30.0 [place] [id number] [place] [address] 03415- 1891 Nov, [place] [id number] [address]- 0648 Nov, Hypothyroid E03.9 [facility] [id number] [place] [address] 16084- 3678 Nov, Hypothyroid E03.9 ; Angina at rest I20.8 ; CVA (cerebral vascular accident) I63.9 ; Hypercholesterolemia E78.0 ; COPD (chronic obstructive pulmonary disease) J44.9 ; GERD (gastroesophageal reflux disease) K21.9 and Diabetes E11.9 [facility] [id number] [place] [address] 86511 -4848 Oct, Upper respiratory symptom R09.89 [facility] [id number] [place] [address] 86427- 9637 Oct, [facility] [id number] [place] [address] 29283- 5459 Oct, [facility] [id number] [place] [address] 03198- 2271 Oct, [facility] [id number] [place] [address] 53693- 3330 Aug, Diabetes mellitus 250.00 ; Encounter for immunization Z23 ; Hypothyroid E03.9 ; Angina at rest I20.8 ; CVA (cerebral vascular accident) I63.9 ; Hypercholesterolemia E78.0 ; COPD (chronic obstructive pulmonary disease ) J44.9 and GERD (gastroesophageal reflux disease) K21.9 [facility] [id number] [place] [address] 46002- 0106 Jul, [facility] [id number] [place] [address] 46530- 7560 Jun, [facility] [id number] [place] [address] 45437- 1901 Jun, [facility] [address] [address]- 3818 May, [facility] [address] [address]- 0708 May, Diabetes mellitus 250.00 ; Hypothyroidism 244.9 ; Angina at rest 413.9 ; CVA (cerebral infarction) 434.91 ; Hypercholesterolemia 272.0 ; COPD (chronic obstructive pulmonary disease) 496 and GERD (gastroesophageal reflux disease) 530.81 [facility] [address] [address]- 1686 30 Oct, 2010 [facility] [id number] [place] [address] 09801- 9146 Oct, [facility] [address] [address]- 7306 Oct, [facility] [id number] [place] [address] 46214- 0306 Oct, [facility] [address] [address] 2546 Sep, [facility] [address] [address]- 9262 Aug, [facility] [address] [address]- 1346 Aug, [facility] [address] [address]- 3236 Aug, [facility] [address] [address] 2546 Jul, [facility] [address] [address] 2546 Jan, [facility] [address] [address]- 2546 Oct, [facility] [address] [address] 2546 Oct, [facility] [address] [address]- 2546 Sep, [facility] [id number] [address]- 7133 Apr, [facility] [address] [facility] [id number] [address]- 0692 10 Dec, 2008 IMMUNIZATIONS No Known Immunizations SOCIAL HISTORY Never Assessed REASON FOR VISIT deferred DI PLAN OF CARE VITAL SIGNS MEDICATIONS Unknown [...] upper lobe Pneumonia 02/24/16 Hospitalization History Chest Pain--[facility] 05/19/16 Hospitalization History Chest pain--[facility] 06/18/16 Hospitalization History Influenza & COPD exacerbation 12/21 Hospitalization History Cardiac Monitoring 01/2018
--- OUTSIDE RECORDS SUMMARY | 2018-07-19 12:52 | XMS REPORT ---
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 Active [id number] Problem 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 Active 1798848009032 Problem History of CVA (cerebrovascular accident) Z86.73 Active 509478002 Problem Overweight (BMI 25.0-29.9) E66.3 Active 107428349 Problem Hospital discharge follow-up Z09 Active 520773216 Problem Osteopenia of spine M85.88 Active 688856989 Problem Former smoker Z87.891 Active 7836107 Problem GERD (gastroesophageal reflux disease) K21.9 Active 027475585 Problem Angina at rest I20.8 Active 22089188 Problem Hypothyroid E03.9 Active 36766853 Problem Constipation K59.00 Active 19616558 Problem COPD (chronic obstructive pulmonary disease) J44.9 Active 51682967 Problem Peptic ulcer K27.9 Active 34811644 ALLERGIES No Information ENCOUNTERS Encounter Location Date Diagnosis [facility] [address] [facility] [id number] [address] Apr, [facility] [address] [facility] [facility] [facility] [id number] [address] Apr, Type 2 diabetes mellitus without complication, without long- term current use of insulin E11.9 ; Hypothyroid E03.9 ; Hyperlipidemia LDL goal <100 E78.5 ; Overweight (BMI 25.0-29.9) E66.3 ; Vaginal candidiasis B37.3 ; COPD (chronic obstructive pulmonary disease) J44.9 ; CVA (cerebral vascular accident) I63.9 ; GERD (gastroesophageal reflux disease) K21.9 ; Angina at rest I20.8 and 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 [place] [address] [address] March, Hypothyroid E03.9 [place] [address] 16576- 0858 March, Hypercholesterolemia E78.00 [place] [address] 75138- 7705 March, Hypothyroid E03.9 [place] [address] 21636- 0795 March, Hypercholesterolemia E78.00 [place] [address] [address]- 0923 Feb, Hypercholesterolemia E78.00 [place] [address] [address]- [address] Feb, Type 2 diabetes mellitus without complication, without long- term current use of insulin E11.9 [place] [address] [place] [id number] [place] [address] 72302- 1732 03 Feb, 2018 Hypothyroid E03.9 [place] [address] [place] [id number] [place] [address] 52965- 8716 14 Jan, 2018 Hypothyroid E03.9 ; 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 ; Hospital discharge follow-up Z09 ; Type 2 diabetes mellitus without complication, without long-term current use of insulin E11.9 ; 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 and History of CVA (cerebrovascular accident) Z86.73 [place] [address] [place] [address] Jan, [place] [address] [place] [id number] [place] [address] 19974- 8768 Jan, [place] [address] [place] [id number] [place] [address] 11788- 2717 Jan, Type 2 diabetes mellitus without complication, without long- term current use of insulin E11.9 [place] [address] [place] [id number] [place] [address] 17348- 5756 Dec, Hospital discharge follow-up Z09 ; COPD (chronic obstructive pulmonary disease) J44.9 ; Type 2 diabetes mellitus without complication, without long-term current use of insulin E11.9 ; Hypothyroid E03.9 and Vaginal discharge N89.8 [place] [address] [place] [id number] [place] [address] 82930- 1419 Dec, Hypothyroid E03.9 [place] [address] [place] [id number] [place] [address] 95984- 0029 Dec, Type 2 diabetes mellitus without complication, without long- term current use of insulin E11.9 [place] [address] [place] [id number] [place] [address] 43649- 0758 Nov, [place] [address] [place] [id number] [place] [address] 79041- 9781 Nov, [place] [address] [place] [id number] [place] [address] 36575- 3223 Nov, Pneumonia of right lower lobe due to infectious organism J18.1 ; Orthopnea R06.01 ; COPD with acute exacerbation J44.1 and Fatigue, unspecified type R53.83 [place] [address] [place] [id number] [place] [address] 11388- 4240 Nov, [place] [address] [place] [id number] [place] [address] 21489- 6416 Nov, [place] [address] [place] [id number] [place] [address] 33168- 8402 Oct, Pneumonia of right lower lobe due to infectious organism J18.1 [place] [address] [address] Oct, Pneumonia of right lower lobe due to infectious organism J18.1 [place] [address] [address] 97[address] Oct, Pneumonia of right lower lobe due to infectious organism J18.1 [place] [id number] [place] [address] 35694- 2439 Oct, COPD exacerbation J44.1 [place] [id number] [place] [address] 34917- 9525 Oct, [place] [address] [place] [id number] [place] [address] 35017- 3333 Oct, COPD exacerbation J44.1 [place] [id number] [place] [address] 19235- 2735 Oct, Encounter for immunization Z23 and COPD (chronic obstructive pulmonary disease) J44.9 [address] [place] [address] 93149- 0946 Oct, Medicare annual wellness visit, subsequent Z00.00 ; History of tobacco use Z87.891 ; Need for Zostavax administration Z23 ; Post-menopausal Z78.0 ; Screening for breast cancer Z12.31 ; Screening for colon cancer Z12.11 ; 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 and Encounter for immunization Z23 [address] [address] Sep, Type 2 diabetes mellitus without complication, without long- term current use of insulin E11.9 [address] [place] [address] 80766- 9908 Sep, Type 2 diabetes mellitus without complication, without long- term current use of insulin E11.9 ; COPD (chronic obstructive pulmonary disease ) J44.9 ; Hypothyroid E03.9 ; GERD (gastroesophageal reflux disease) K21.9 ; CVA (cerebral vascular accident) I63.9 ; Hyperlipidemia LDL goal <100 E78.5 ; Coronary artery disease of [place] heart with stable angina pectoris, unspecified vessel or lesion type I25.118 and 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 [place] [address] 42[address]- 5345 Aug, Type 2 diabetes mellitus without complication, without long- term current use of insulin E11.9 [place] [address] 93131- 8224 Aug, Hypothyroid E03.9 [place] [address] 11793- 6180 Aug, Type 2 diabetes mellitus without complication, without long- term current use of insulin E11.9 ; COPD (chronic obstructive pulmonary disease ) J44.9 ; Hypothyroid E03.9 ; GERD (gastroesophageal reflux disease) K21.9 ; CVA (cerebral vascular accident) I63.9 ; Hyperlipidemia LDL goal <100 E78.5 ; Coronary artery disease of [place] heart with stable angina pectoris, unspecified vessel or lesion type I25.118 and Encounter for immunization Z23 [place] [address] 80285- 2323 Jul, Hypothyroid E03.9 and Hypercholesterolemia E78.00 [place] [address] 09898- 3041 Jul, Hypothyroid E03.9 ; Diabetes mellitus E11.9 and Hypercholesterolemia E78.0 [place] [address] 91305- 1742 Jul, Hypothyroid E03.9 ; Diabetes mellitus E11.9 and Hypercholesterolemia E78.0 [place] [address] 43348- 2144 May, CVA (cerebral vascular accident) I63.9 and Dizziness R42 [place] [address] 25626- 1615 May, Dehydration E86.0 ; CVA (cerebral vascular accident) I63.9 ; COPD (chronic obstructive pulmonary disease) J44.9 and Dizziness R42 [facility] [address] [place] [id number] [place] [address] 17829- 5664 March, Diabetes mellitus E11.9 ; Angina at rest I20.8 ; COPD ( chronic obstructive pulmonary disease) J44.9 ; GERD (gastroesophageal reflux disease) K21.9 ; Hypercholesterolemia E78.00 ; CVA (cerebral vascular accident) I63.9 and Hypothyroid E03.9 [facility] [address] [place] [id number] [place] [address] 28233- 1192 Jan, Hypothyroid E03.9 and Diabetes mellitus E11.9 [facility] [address] [place] [id number] [place] [address] 04069- 4342 Jan, [place] [address] [place] [id number] [place] [address] 80302- 4549 Jan, Diabetes mellitus E11.9 [facility] [address] [place] [id number] [place] [address] 51128- 1511 Jan, [facility] [address] [place] [id number] [place] [address] 98566- 7583 Dec, Diabetes mellitus E11.9 ; CVA (cerebral vascular accident) I63.9 ; COPD (chronic obstructive pulmonary disease) J44.9 ; Hypothyroid E03.9 ; GERD (gastroesophageal reflux disease) K21.9 and Hypercholesterolemia E78.00 [facility] [address] [place] [id number] [place] [address] 42889- 0564 Nov, Diabetes mellitus E11.9 [facility] [address] [place] [id number] [address] 3[address] Nov, [facility] [address] [place] [id number] [place] [address] 82130- 3497 Nov, [facility] [address] [place] [id number] [place] [address] 35727- 9060 Nov, [facility] [address] [place] [id number] [place] [address] 22350- 2265 Nov, Diabetes mellitus E11.9 [facility] [address] [place] [id number] [place] [address] 27123- 9621 Oct, Hypothyroid E03.9 [facility] [address] [place] [id number] [place] [address] 69285- 6710 Oct, Diabetes mellitus E11.9 [facility] [address] 13285- 0827 Oct, COPD (chronic obstructive pulmonary disease) J44.9 [facility] [address] [place] [id number] [place] [address] 20152- 9597 Oct, [place] [address] 17213- 2780 Sep, Diabetes mellitus E11.9 ; Angina at rest I20.8 ; Hypercholesterolemia E78.0 ; COPD (chronic obstructive pulmonary disease) J44.9 ; GERD (gastroesophageal reflux disease) K21.9 ; Dysuria R30.0 ; Acquired hypothyroidism E03.9 ; Encounter for immunization Z23 and Acute cystitis without hematuria N30.00 [place] [address] [place] [id number] [place] [address] 37563- 8961 Sep, Diabetes mellitus E11.9 [facility] [address] [place] [id number] [place] [address] 42076 -0047 Aug, [facility] [address] [place] [id number] [place] [address] 84257- 2323 Aug, Diabetes mellitus E11.9 [facility] [address] [place] [id number] [place] [address] 33939- 0115 Jun, Angina at rest I20.8 ; CVA (cerebral vascular accident) I63.9 ; Diabetes mellitus E11.9 ; Hypercholesterolemia E78.0 ; COPD (chronic obstructive pulmonary disease) J44.9 ; GERD (gastroesophageal reflux disease) K21.9 ; Peptic ulcer K27.9 and Hypothyroid E03.9 [facility] [address] [place] [id number] [place] [address] 04652- 5773 Jun, [facility] [address] [address]- 8136 May, Diabetes mellitus E11.9 ; CVA (cerebral vascular accident) I63.9 ; COPD (chronic obstructive pulmonary disease) J44.9 and Angina at rest I20.8 [facility] [address] [place] [id number] [address]- 0396 May, [facility] [address] [place] [id number] [place] [address] 45650- 8767 May, Diabetes mellitus E11.9 ; Hypothyroid E03.9 ; Angina at rest I20.8 ; CVA (cerebral vascular accident) I63.9 ; COPD (chronic obstructive pulmonary disease) J44.9 ; GERD (gastroesophageal reflux disease) K21.9 and Hypercholesterolemia E78.0 [place] [address] [place] [id number] [place] [address] 22284- 3987 Apr, Hypercholesterolemia E78.0 [facility] [address] [place] [id number] [place] [address] 12722- 5139 Apr, [place] [address] [place] [id number] [place] [address] 79136- 5307 March, Diabetes mellitus E11.9 ; Hypothyroid E03.9 ; Hypercholesterolemia E78.0 ; COPD (chronic obstructive pulmonary disease) J44.9 ; GERD (gastroesophageal reflux disease) K21.9 ; Constipation K59.00 ; CVA ( cerebral vascular accident) I63.9 and Angina at rest I20.8 [place] [address] [address]- 9639 March, [facility] [address] [place] [id number] [place] [address] 71762- 3885 Feb, [facility] [address] [place] [id number] [address]- 0949 Feb, [facility] [address] [place] [id number] [place] [address] 13936- 8916 Feb, [facility] [id number] [place] [address] 99658- 6537 Jan, Diabetes mellitus E11.9 ; Hypercholesterolemia E78.0 ; CVA ( cerebral vascular accident) I63.9 ; GERD (gastroesophageal reflux disease) K21.9 ; Hypothyroid E03.9 and Angina at rest I20.8 [facility] [address] [place] [id number] [place] [address] 16834- 6605 Dec, Diabetes mellitus E11.9 ; Hypothyroid E03.9 ; Angina at rest I20.8 ; CVA (cerebral vascular accident) I63.9 ; Hypercholesterolemia E78.0 ; COPD (chronic obstructive pulmonary disease) J44.9 ; GERD ( gastroesophageal reflux disease) K21.9 and Dysuria R30.0 [facility] [address] [place] [id number] [place] [address] 34322- 0368 Nov, [place] [address] 77674- 1536 Nov, Hypothyroid E03.9 [facility] [address] [place] [id number] [place] [address] 77716- 1796 Nov, Hypothyroid E03.9 ; Angina at rest I20.8 ; CVA (cerebral vascular accident) I63.9 ; Hypercholesterolemia E78.0 ; COPD (chronic obstructive pulmonary disease) J44.9 ; GERD (gastroesophageal reflux disease) K21.9 and Diabetes E11.9 [facility] [address] [place] [id number] [place] [address] 46799 -3616 Oct, Upper respiratory symptom R09.89 [facility] [address] [place] [id number] [place] [address] 89095- 2895 Oct, [facility] [address] [place] [id number] [place] [address] 49671- 0622 Oct, [facility] [address] [place] [id number] [place] [address] 66287- 4025 Oct, [facility] [address] 86840- 9330 Aug, Diabetes mellitus 250.00 ; Encounter for immunization Z23 ; Hypothyroid E03.9 ; Angina at rest I20.8 ; CVA (cerebral vascular accident) I63.9 ; Hypercholesterolemia E78.0 ; COPD (chronic obstructive pulmonary disease ) J44.9 and GERD (gastroesophageal reflux disease) K21.9 [facility] [address] [place] [id number] [place] [address] 32844- 9182 Jul, [facility] [address] 70250- 1064 Jun, [facility] [address] 02713- 0613 Jun, [facility] [address] 44235- 5336 May, [facility] [address] 34085- 6980 May, Diabetes mellitus 250.00 ; Hypothyroidism 244.9 ; Angina at rest 413.9 ; CVA (cerebral infarction) 434.91 ; Hypercholesterolemia 272.0 ; COPD (chronic obstructive pulmonary disease) 496 and GERD (gastroesophageal reflux disease) 530.81 [facility] [address] [place] [id number] [place] [address] 03294- 8536 Oct, [facility] [address] [place] [id number] [place] [address] 91484- 3813 Oct, [facility] [address] 33623- 4679 Oct, [facility] [address] [place] [id number] [place] [address] 42060- 9761 Oct, [facility] [address] 69935- 4334 Sep, [facility] [address] [place] [id number] [place] [address] 15663- 5471 Aug, [facility] [address] 33962- 7206 15 Aug, 2010 [facility] [address] [place] [id number] [address]- 7626 15 Aug, 2010 [facility] [address] [place] [id number] [address]- 7026 13 Jul, 2010 [facility] [address] [place] [id number] [address]- 9229 15 Jan, 2010 [facility] [address] [address]- 3510 Oct, [facility] [address] [place] [id number] [address]- 9055 Oct, [facility] [address] [place] [id number] [address]- 2701 Sep, [facility] [address] [place] [id number] [address]- 8781 Apr, [facility] [address] [place] [id number] [address]- 3887 Dec, IMMUNIZATIONS No Known Immunizations SOCIAL HISTORY [facility] Chest pain--[facility] 06/18/16 Hospitalization History Influenza & COPD exacerbation 12/21 Hospitalization History Cardiac Monitoring 01/2018 Hospitalization History [facility], tripped and hit head 04/2018
--- OUTSIDE RECORDS SUMMARY | 2018-07-19 12:53 | XMS REPORT ---
[facility] Address [address] [place] [address] Care Team Providers Care Shell Assembler Name Role Phone MARIA MACKEY Unavailable PROBLEMS Type Condition ICD9-CM Code DQD90-QL Code Onset Dates Condition Status SNOMED Code Problem Angina at rest I20.8 Active 75473744 Problem Peptic ulcer K27.9 Active 40983095 Problem Constipation K59.00 Active 95634522 Problem Hospital discharge follow-up Z09 Active 675418658 Problem History of CVA (cerebrovascular accident) Z86.73 Active 670675549 Problem Type 2 diabetes mellitus without complication, without long-term current use of insulin E11.9 Active 053590435 Problem Hyperlipidemia LDL goal <100 E78.5 Active 06936453 Problem 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 Active 3508267708746 Problem 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 Active 383417970898 Problem Former smoker Z87.891 Active 4023110 Problem Hypothyroid E03.9 Active 65143656 Problem COPD (chronic obstructive pulmonary disease) J44.9 Active 71019389 Problem Osteopenia of spine M85.88 Active 021570869 Problem GERD (gastroesophageal reflux disease) K21.9 Active 599238991 ALLERGIES No Information ENCOUNTERS Encounter Location Date Diagnosis [facility] [id number], [place] [address] Apr, [facility] [id number], [place] [address] March, Hypothyroid E03.9 [facility] [address], [place] [address] March, Hypercholesterolemia E78.00 [facility] [id number], [place] [address] March, Hypothyroid E03.9 [place] [address], [place] [address] March, Hypercholesterolemia E78.00 [place] [id number] [place] [address] 14554- 1352 Feb, Hypercholesterolemia E78.00 [place] [id number] [place] [address] 05541- 4151 Feb, Type 2 diabetes mellitus without complication, without long- term current use of insulin E11.9 [place] [id number] [place] [address] 79171- 2382 Feb, Hypothyroid E03.9 [place] [id number] [place] [address] 64748- 6735 Jan, Hypothyroid E03.9 ; 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 ; Hospital discharge follow-up Z09 ; Type 2 diabetes mellitus without complication, without long-term current use of insulin E11.9 ; 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 and History of CVA (cerebrovascular accident) Z86.73 [place] [id number] [place] [address] 90191- 3288 Jan, [place] [id number] [place] [address] 36946- 1634 Jan, [place] [address] [place] [address] 96233- 3824 Jan, Type 2 diabetes mellitus without complication, without long- term current use of insulin E11.9 [place] [address], [place] [address] Dec, Hospital discharge follow-up Z09 ; COPD (chronic obstructive pulmonary disease) J44.9 ; Type 2 diabetes mellitus without complication, without long-term current use of insulin E11.9 ; Hypothyroid E03.9 and Vaginal discharge N89.8 [place] [id number] [place] [address] 03334- 7253 Dec, Hypothyroid E03.9 [facility] [address], [place] [address] 6[address] Dec, Type 2 diabetes mellitus without complication, without long- term current use of insulin E11.9 [facility] [address], [place] [address] Nov, [facility] [id number] [place] [address] Nov, [facility] [address], [place] [address] 8708 Nov, Pneumonia of right lower lobe due to infectious organism J18.1 ; Orthopnea R06.01 ; COPD with acute exacerbation J44.1 and Fatigue, unspecified type R53.83 [facility] [address], [place] [address] 384[address] Nov, [facility] [address], [place] [address] 46[address] Nov, [facility] [address], [place] [address] 6813 Oct, Pneumonia of right lower lobe due to infectious organism J18.1 [facility] [address], [place] [address] 7094 Oct, Pneumonia of right lower lobe due to infectious organism J18.1 [facility] [address], [place] [address] 6700 Oct, Pneumonia of right lower lobe due to infectious organism J18.1 [facility] [address], [place] [address] 4056 Oct, COPD exacerbation J44.1 [facility] [address], [place] [address] 4976 Oct, [facility] [address], [place] [address] 7390 Oct, COPD exacerbation J44.1 [place] [address], [place] [address] 11 Oct, 2017 Encounter for immunization Z23 and COPD (chronic obstructive pulmonary disease) J44.9 [place] [id number] [place] [address] 30910- 4042 06 Oct, 2017 Medicare annual wellness visit, subsequent Z00.00 ; History of tobacco use Z87.891 ; Need for Zostavax administration Z23 ; Post-menopausal Z78.0 ; Screening for breast cancer Z12.31 ; Screening for colon cancer Z12.11 ; 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 and Encounter for immunization Z23 [place] [id number] [place] [address] 45703- 6497 Sep, Type 2 diabetes mellitus without complication, without long- term current use of insulin E11.9 [id number] [place] [address] 82591- 8524 Sep, Type 2 diabetes mellitus without complication, without long- term current use of insulin E11.9 ; COPD (chronic obstructive pulmonary disease ) J44.9 ; Hypothyroid E03.9 ; GERD (gastroesophageal reflux disease) K21.9 ; CVA (cerebral vascular accident) I63.9 ; Hyperlipidemia LDL goal <100 E78.5 ; Coronary artery disease of [place] heart with stable angina pectoris, unspecified vessel or lesion type I25.118 and 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 [place] [address] [place] [address] 87449- 8181 Aug, Type 2 diabetes mellitus without complication, without long- term current use of insulin E11.9 [place] [address] [place] [address] 97449- 7752 Aug, Hypothyroid E03.9 [id number] [place] [address] 97368- 9322 Aug, Type 2 diabetes mellitus without complication, without long- term current use of insulin E11.9 ; COPD (chronic obstructive pulmonary disease ) J44.9 ; Hypothyroid E03.9 ; GERD (gastroesophageal reflux disease) K21.9 ; CVA (cerebral vascular accident) I63.9 ; Hyperlipidemia LDL goal <100 E78.5 ; Coronary artery disease of [place] heart with stable angina pectoris, unspecified vessel or lesion type I25.118 and Encounter for immunization Z23 [place] [address] [address] Jul, Hypothyroid E03.9 and Hypercholesterolemia E78.00 [place] [address] [address]- [address] Jul, Hypothyroid E03.9 ; Diabetes mellitus E11.9 and Hypercholesterolemia E78.0 [place] [address] 6[address]- 8848 Jul, Hypothyroid E03.9 ; Diabetes mellitus E11.9 and Hypercholesterolemia E78.0 [place] [address] [address]- 7622 May, CVA (cerebral vascular accident) I63.9 and Dizziness R42 [place] [address] [address]- 9198 May, Dehydration E86.0 ; CVA (cerebral vascular accident) I63.9 ; COPD (chronic obstructive pulmonary disease) J44.9 and Dizziness R42 [place] [id number] [place] [address] 65228- 8018 March, Diabetes mellitus E11.9 ; Angina at rest I20.8 ; COPD ( chronic obstructive pulmonary disease) J44.9 ; GERD (gastroesophageal reflux disease) K21.9 ; Hypercholesterolemia E78.00 ; CVA (cerebral vascular accident) I63.9 and Hypothyroid E03.9 [place] [address] 71516- 8399 Jan, Hypothyroid E03.9 and Diabetes mellitus E11.9 [place] [id number] [place] [address] 69531- 6646 Jan, [place] [address] 90929- 8318 Jan, Diabetes mellitus E11.9 [facility] [address], [place] [address]- 8480 Jan, [facility] [id number] [place] [address] 86809- 6803 Dec, Diabetes mellitus E11.9 ; CVA (cerebral vascular accident) I63.9 ; COPD (chronic obstructive pulmonary disease) J44.9 ; Hypothyroid E03.9 ; GERD (gastroesophageal reflux disease) K21.9 and Hypercholesterolemia E78.00 [facility] [address], [place] [address]- 4057 Nov, Diabetes mellitus E11.9 [facility] [id number] [place] [address] 88594- 4012 Nov, [facility] [id number] [place] [address] 06576- 4908 Nov, [facility] [id number] [place] [address] 07521- 6084 Nov, [facility] [id number] [place] [address] 49106- 1169 Nov, Diabetes mellitus E11.9 [facility] [id number] [place] [address] 97961- 5618 Oct, Hypothyroid E03.9 [facility] [address], [place] [address]- 1173 Oct, Diabetes mellitus E11.9 [facility] [address], [place] [address]- 1058 Oct, COPD (chronic obstructive pulmonary disease) J44.9 [facility] [address], [place] [address]- 0618 Oct, [facility] [address], [place] [address]- 7053 Sep, Diabetes mellitus E11.9 ; Angina at rest I20.8 ; Hypercholesterolemia E78.0 ; COPD (chronic obstructive pulmonary disease) J44.9 ; GERD (gastroesophageal reflux disease) K21.9 ; Dysuria R30.0 ; Acquired hypothyroidism E03.9 ; Encounter for immunization Z23 and Acute cystitis without hematuria N30.00 [facility] [id number] [place] [address] 65636- 0230 Sep, Diabetes mellitus E11.9 [facility] [id number] [place] [address] 53367 -1005 Aug, [facility] [id number] [place] [address] 59528- 6585 Aug, Diabetes mellitus E11.9 [place] [address] 7[address]- 2006 Jun, Angina at rest I20.8 ; CVA (cerebral vascular accident) I63.9 ; Diabetes mellitus E11.9 ; Hypercholesterolemia E78.0 ; COPD (chronic obstructive pulmonary disease) J44.9 ; GERD (gastroesophageal reflux disease) K21.9 ; Peptic ulcer K27.9 and Hypothyroid E03.9 [facility] [id number] [place] [address] 41384- 8757 Jun, [place] [id number] [place] [address] 90531- 5622 May, Diabetes mellitus E11.9 ; CVA (cerebral vascular accident) I63.9 ; COPD (chronic obstructive pulmonary disease) J44.9 and Angina at rest I20.8 [facility] [id number] [place] [address] 02749- 8959 May, [place] [id number] [place] [address] 15919- 8560 May, Diabetes mellitus E11.9 ; Hypothyroid E03.9 ; Angina at rest I20.8 ; CVA (cerebral vascular accident) I63.9 ; COPD (chronic obstructive pulmonary disease) J44.9 ; GERD (gastroesophageal reflux disease) K21.9 and Hypercholesterolemia E78.0 [address] [address] [place] [address]- 7747 Apr, Hypercholesterolemia E78.0 [place] [address] [address]- 9199 Apr, [facility] [id number] [place] [address] 57357- 3400 March, Diabetes mellitus E11.9 ; Hypothyroid E03.9 ; Hypercholesterolemia E78.0 ; COPD (chronic obstructive pulmonary disease) J44.9 ; GERD (gastroesophageal reflux disease) K21.9 ; Constipation K59.00 ; CVA ( cerebral vascular accident) I63.9 and Angina at rest I20.8 [place] [address] 40723- 2269 March, [place] [id number] [place] [address] 47091- 6439 Feb, [place] [address] 32264- 8749 Feb, [facility] [id number] [place] [address] 81825- 4031 Feb, [place] [id number] [place] [address] 99461- 5564 Jan, Diabetes mellitus E11.9 ; Hypercholesterolemia E78.0 ; CVA ( cerebral vascular accident) I63.9 ; GERD (gastroesophageal reflux disease) K21.9 ; Hypothyroid E03.9 and Angina at rest I20.8 [place] [id number] [place] [address] 01991- 9604 Dec, Diabetes mellitus E11.9 ; Hypothyroid E03.9 ; Angina at rest I20.8 ; CVA (cerebral vascular accident) I63.9 ; Hypercholesterolemia E78.0 ; COPD (chronic obstructive pulmonary disease) J44.9 ; GERD ( gastroesophageal reflux disease) K21.9 and Dysuria R30.0 [address] [place] [id number] [place] [address] 92364- 1155 Nov, [place] [id number] [place] [address]- 2110 Nov, Hypothyroid E03.9 [facility] [id number] [place] [address] 97872- 1124 Nov, Hypothyroid E03.9 ; Angina at rest I20.8 ; CVA (cerebral vascular accident) I63.9 ; Hypercholesterolemia E78.0 ; COPD (chronic obstructive pulmonary disease) J44.9 ; GERD (gastroesophageal reflux disease) K21.9 and Diabetes E11.9 [facility] [id number] [place] [address] 24360 -3449 Oct, Upper respiratory symptom R09.89 [facility] [id number] [place] [address] 98055- 7752 Oct, [facility] [id number] [place] [address] 03134- 5805 Oct, [facility] [id number] [place] [address] 31961- 5816 Oct, [facility] [id number] [place] [address] 19072- 3516 Aug, Diabetes mellitus 250.00 ; Encounter for immunization Z23 ; Hypothyroid E03.9 ; Angina at rest I20.8 ; CVA (cerebral vascular accident) I63.9 ; Hypercholesterolemia E78.0 ; COPD (chronic obstructive pulmonary disease ) J44.9 and GERD (gastroesophageal reflux disease) K21.9 [facility] [id number] [place] [address] 76688- 2739 Jul, [facility] [id number] [place] [address] 75845- 8246 Jun, [facility] [id number] [place] [address] 94761- 6354 Jun, [facility] [address], [place] [address]- 1632 May, [facility] [address] [place] [address]- 0799 May, Diabetes mellitus 250.00 ; Hypothyroidism 244.9 ; Angina at rest 413.9 ; CVA (cerebral infarction) 434.91 ; Hypercholesterolemia 272.0 ; COPD (chronic obstructive pulmonary disease) 496 and GERD (gastroesophageal reflux disease) 530.81 [facility] [address], [place] [address]- 7126 30 Oct, 2010 [facility] [id number] [place] [address] 78313- 8766 Oct, [facility] [address], [place] [address]- 4706 Oct, [facility] [id number] [place] [address] 85054- 2806 Oct, [facility] [id number] [place] [address] 2546 Sep, [facility] [address], [place] [address]- 4129 Aug, [facility] [address], [place] [address]- 0716 Aug, [facility] [address], [place] [address]- 3726 Aug, [facility] [address], [place] [address] 2546 Jul, [facility] [address], [place] [address] 2546 Jan, [facility] [address], [place] [address]- 2546 Oct, [facility] [address], [place] [address] 2546 Oct, [facility] [address], [place] [address]- 2546 Sep, [facility] [id number] [address]- 3295 Apr, [facility] [address] [facility] [id number] [place] [address] Dec, IMMUNIZATIONS Vaccine Route Administration Date Status ROCEPHIN 1 GM (IM) IM Intramuscular Oct 31, 2017 Administered SOCIAL HISTORY Never Assessed REASON FOR VISIT Injection, antibiotic LG[facility] PLAN OF CARE Activity Details Follow Up 11/12/2017- repeat chest xray Reason: VITAL SIGNS MEDICATIONS Unknown Medications RESULTS No Results PROCEDURES Procedure Date Ordered Result Body Site ROCEPHIN 1 GM (IM) Oct 31, 2017 THER/PROPH/DIAG INJ, SC/IM Oct 31, 2017 INSTRUCTIONS MEDICATIONS ADMINISTERED No Known Medications [...] upper lobe Pneumonia 02/24/16 Hospitalization History Chest Pain--[facility] 05/19/16 Hospitalization History Chest pain--[facility] 06/18/16 Hospitalization History Influenza & COPD exacerbation 12/21 Hospitalization History Cardiac Monitoring 01/2018
--- OUTSIDE RECORDS SUMMARY | 2018-07-19 12:53 | XMS REPORT ---
Author Author MARIA MACKEY [facility] Address [address] [place] [address] Care Team Providers Care Sustainable Design Coordinator Name Role Phone MARIA MACKEY Unavailable PROBLEMS Type Condition ICD9-CM Code PWF14-EN Code Onset Dates Condition Status SNOMED Code Problem Angina at rest I20.8 Active 99214735 Problem Peptic ulcer K27.9 Active 75837505 Problem Constipation K59.00 Active 41484812 Problem Hospital discharge follow-up Z09 Active 819193992 Problem History of CVA (cerebrovascular accident) Z86.73 Active 278391815 Problem Type 2 diabetes mellitus without complication, without long-term current use of insulin E11.9 Active 421171389 Problem Hyperlipidemia LDL goal <100 E78.5 Active 21904655 Problem 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 Active 7838151981440 Problem 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 Active 379799428334 Problem Former smoker Z87.891 Active 9746873 Problem Hypothyroid E03.9 Active 70870483 Problem COPD (chronic obstructive pulmonary disease) J44.9 Active 03013365 Problem Osteopenia of spine M85.88 Active 256354468 Problem GERD (gastroesophageal reflux disease) K21.9 Active 642786296 ALLERGIES No Information ENCOUNTERS Encounter Location Date Diagnosis [facility] [id number] [address] Apr, [facility] [id number] [address] March, Hypothyroid E03.9 [facility] [address], [place] [address] March, Hypercholesterolemia E78.00 [facility] [id number], [place] [address] March, Hypothyroid E03.9 [place] [address], [place] [address] March, Hypercholesterolemia E78.00 [facility] [id number] [place] [address] 28770- 9900 Feb, Hypercholesterolemia E78.00 [facility] [id number] [place] [address] 36063- 7955 Feb, Type 2 diabetes mellitus without complication, without long- term current use of insulin E11.9 [facility] [id number] [place] [address] 67711- 9179 Feb, Hypothyroid E03.9 [facility] [id number] [place] [address] 05144- 7731 Jan, Hypothyroid E03.9 ; 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 ; Hospital discharge follow-up Z09 ; Type 2 diabetes mellitus without complication, without long-term current use of insulin E11.9 ; 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 and History of CVA (cerebrovascular accident) Z86.73 [place] [address] [place] [address] 55481- 2496 Jan, [place] [address] [place] [address] 36831- 2077 Jan, [place] [address] [place] [address] 02421- 1895 Jan, Type 2 diabetes mellitus without complication, without long- term current use of insulin E11.9 [facility] [place] [address], [place] [address] Dec, Hospital discharge follow-up Z09 ; COPD (chronic obstructive pulmonary disease) J44.9 ; Type 2 diabetes mellitus without complication, without long-term current use of insulin E11.9 ; Hypothyroid E03.9 and Vaginal discharge N89.8 [place] [address] [place] [address] 23478- 6546 Dec, Hypothyroid E03.9 [facility] [address], [place] [address] Dec, Type 2 diabetes mellitus without complication, without long- term current use of insulin E11.9 [facility] [address], [place] [address] 78[address] Nov, [facility] [id number], [place] [address] 269[address] Nov, [facility] [address], [place] [address] Nov, Pneumonia of right lower lobe due to infectious organism J18.1 ; Orthopnea R06.01 ; COPD with acute exacerbation J44.1 and Fatigue, unspecified type R53.83 [facility] [address], [place] [address] 4226 Nov, [facility] [address], [place] [address] 0[address] Nov, [facility] [address], [place] [address] 0765 Oct, Pneumonia of right lower lobe due to infectious organism J18.1 [facility] [address], [place] [address] 2941 Oct, Pneumonia of right lower lobe due to infectious organism J18.1 [facility] [address], [place] [address] 9234 Oct, Pneumonia of right lower lobe due to infectious organism J18.1 [facility] [address], [place] [address] 9566 Oct, COPD exacerbation J44.1 [facility] [address], [place] [address] 5[address] Oct, [facility] [address], [place] [address] 5910 Oct, COPD exacerbation J44.1 [place] [address], [place] [address] 87[address] 11 Oct, 2017 Encounter for immunization Z23 and COPD (chronic obstructive pulmonary disease) J44.9 [facility] [id number] [place] [address] 21103- 7811 06 Oct, 2017 Medicare annual wellness visit, subsequent Z00.00 ; History of tobacco use Z87.891 ; Need for Zostavax administration Z23 ; Post-menopausal Z78.0 ; Screening for breast cancer Z12.31 ; Screening for colon cancer Z12.11 ; 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 and Encounter for immunization Z23 [facility] [id number] [place] [address] 16249- 4546 Sep, Type 2 diabetes mellitus without complication, without long- term current use of insulin E11.9 [address] [id number] [place] [address] 41452- 2096 Sep, Type 2 diabetes mellitus without complication, without long- term current use of insulin E11.9 ; COPD (chronic obstructive pulmonary disease ) J44.9 ; Hypothyroid E03.9 ; GERD (gastroesophageal reflux disease) K21.9 ; CVA (cerebral vascular accident) I63.9 ; Hyperlipidemia LDL goal <100 E78.5 ; Coronary artery disease of north fork heart with stable angina pectoris, unspecified vessel or lesion type I25.118 and 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 [facility] [address] [place] [address] 70439- 6071 Aug, Type 2 diabetes mellitus without complication, without long- term current use of insulin E11.9 [place] [address] [place] [address] 70018- 7466 Aug, Hypothyroid E03.9 [address] [place] [id number] [place] [address] 08478- 2088 Aug, Type 2 diabetes mellitus without complication, without long- term current use of insulin E11.9 ; COPD (chronic obstructive pulmonary disease ) J44.9 ; Hypothyroid E03.9 ; GERD (gastroesophageal reflux disease) K21.9 ; CVA (cerebral vascular accident) I63.9 ; Hyperlipidemia LDL goal <100 E78.5 ; Coronary artery disease of north fork heart with stable angina pectoris, unspecified vessel or lesion type I25.118 and Encounter for immunization Z23 [place] [address] [address] Jul, Hypothyroid E03.9 and Hypercholesterolemia E78.00 [place] [address] [address]- 1528 Jul, Hypothyroid E03.9 ; Diabetes mellitus E11.9 and Hypercholesterolemia E78.0 [place] [address] [address]- 9432 Jul, Hypothyroid E03.9 ; Diabetes mellitus E11.9 and Hypercholesterolemia E78.0 [place] [address] 93146- 0229 May, CVA (cerebral vascular accident) I63.9 and Dizziness R42 [place] [address] 85968- 0653 May, Dehydration E86.0 ; CVA (cerebral vascular accident) I63.9 ; COPD (chronic obstructive pulmonary disease) J44.9 and Dizziness R42 [place] [id number] [place] [address] 03468- 3634 March, Diabetes mellitus E11.9 ; Angina at rest I20.8 ; COPD ( chronic obstructive pulmonary disease) J44.9 ; GERD (gastroesophageal reflux disease) K21.9 ; Hypercholesterolemia E78.00 ; CVA (cerebral vascular accident) I63.9 and Hypothyroid E03.9 [place] [address] 18[address]- 7712 Jan, Hypothyroid E03.9 and Diabetes mellitus E11.9 [place] [id number] [place] [address] 46066- 3323 Jan, [place] [address] 15216- 9993 Jan, Diabetes mellitus E11.9 [facility] [address], [place] [address] 97[address] Jan, [facility] [address] [place] [address] 72909- 5947 Dec, Diabetes mellitus E11.9 ; CVA (cerebral vascular accident) I63.9 ; COPD (chronic obstructive pulmonary disease) J44.9 ; Hypothyroid E03.9 ; GERD (gastroesophageal reflux disease) K21.9 and Hypercholesterolemia E78.00 [facility] [address], [place] [address]- 3511 Nov, Diabetes mellitus E11.9 [facility] [id number] [place] [address] 66174- 3213 Nov, [facility] [id number] [place] [address] 10087- 4907 Nov, [facility] [id number] [place] [address] 43191- 3639 Nov, [facility] [id number] [place] [address] 44666- 4187 Nov, Diabetes mellitus E11.9 [facility] [address] [place] [address] 36671- 1429 Oct, Hypothyroid E03.9 [facility] [address], [place] [address]- 5529 Oct, Diabetes mellitus E11.9 [facility] [address], [place] [address]- 8966 Oct, COPD (chronic obstructive pulmonary disease) J44.9 [facility] [address], [place] [address]- 1263 Oct, [facility] [address], [place] [address]- 7741 Sep, Diabetes mellitus E11.9 ; Angina at rest I20.8 ; Hypercholesterolemia E78.0 ; COPD (chronic obstructive pulmonary disease) J44.9 ; GERD (gastroesophageal reflux disease) K21.9 ; Dysuria R30.0 ; Acquired hypothyroidism E03.9 ; Encounter for immunization Z23 and Acute cystitis without hematuria N30.00 [facility] [id number] [place] [address] 39301- 3408 Sep, Diabetes mellitus E11.9 [facility] [id number] [place] [address] 38888 -7945 Aug, [facility] [id number] [place] [address] 05460- 9685 Aug, Diabetes mellitus E11.9 [place] [address] 24521- 0505 Jun, Angina at rest I20.8 ; CVA (cerebral vascular accident) I63.9 ; Diabetes mellitus E11.9 ; Hypercholesterolemia E78.0 ; COPD (chronic obstructive pulmonary disease) J44.9 ; GERD (gastroesophageal reflux disease) K21.9 ; Peptic ulcer K27.9 and Hypothyroid E03.9 [facility] [id number] [place] [address] 93805- 7640 Jun, [place] [id number] [place] [address] 77302- 5598 May, Diabetes mellitus E11.9 ; CVA (cerebral vascular accident) I63.9 ; COPD (chronic obstructive pulmonary disease) J44.9 and Angina at rest I20.8 [facility] [id number] [place] [address] 75597- 9676 May, [place] [id number] [place] [address] 58981- 3345 May, Diabetes mellitus E11.9 ; Hypothyroid E03.9 ; Angina at rest I20.8 ; CVA (cerebral vascular accident) I63.9 ; COPD (chronic obstructive pulmonary disease) J44.9 ; GERD (gastroesophageal reflux disease) K21.9 and Hypercholesterolemia E78.0 [place] [address] [place] [address]- 1311 Apr, Hypercholesterolemia E78.0 [place] [address] 34884- 6990 Apr, [facility] [id number] [place] [address] 33934- 7664 March, Diabetes mellitus E11.9 ; Hypothyroid E03.9 ; Hypercholesterolemia E78.0 ; COPD (chronic obstructive pulmonary disease) J44.9 ; GERD (gastroesophageal reflux disease) K21.9 ; Constipation K59.00 ; CVA ( cerebral vascular accident) I63.9 and Angina at rest I20.8 [place] [address] 83602- 2152 March, [place] [id number] [place] [address] 58046- 9056 Feb, [place] [address] 30910- 5395 Feb, [facility] [id number] [place] [address] 49200- 4656 Feb, [place] [id number] [place] [address] 91040- 3156 Jan, Diabetes mellitus E11.9 ; Hypercholesterolemia E78.0 ; CVA ( cerebral vascular accident) I63.9 ; GERD (gastroesophageal reflux disease) K21.9 ; Hypothyroid E03.9 and Angina at rest I20.8 [place] [id number] [place] [address] 94451- 5447 Dec, Diabetes mellitus E11.9 ; Hypothyroid E03.9 ; Angina at rest I20.8 ; CVA (cerebral vascular accident) I63.9 ; Hypercholesterolemia E78.0 ; COPD (chronic obstructive pulmonary disease) J44.9 ; GERD ( gastroesophageal reflux disease) K21.9 and Dysuria R30.0 [place] [id number] [place] [address] 84635- 4414 Nov, [place] [address], [place] [address]- 8303 Nov, Hypothyroid E03.9 [facility] [id number] [place] [address] 00808- 5852 Nov, Hypothyroid E03.9 ; Angina at rest I20.8 ; CVA (cerebral vascular accident) I63.9 ; Hypercholesterolemia E78.0 ; COPD (chronic obstructive pulmonary disease) J44.9 ; GERD (gastroesophageal reflux disease) K21.9 and Diabetes E11.9 [facility] [address] [place] [address] 56308 -0948 Oct, Upper respiratory symptom R09.89 [facility] [id number] [place] [address] 17273- 0544 Oct, [facility] [id number] [place] [address] 33558- 2869 Oct, [facility] [id number] [place] [address] 99775- 6718 Oct, [facility] [id number] [place] [address] 23296- 1435 Aug, Diabetes mellitus 250.00 ; Encounter for immunization Z23 ; Hypothyroid E03.9 ; Angina at rest I20.8 ; CVA (cerebral vascular accident) I63.9 ; Hypercholesterolemia E78.0 ; COPD (chronic obstructive pulmonary disease ) J44.9 and GERD (gastroesophageal reflux disease) K21.9 [facility] [address] [place] [address] 93673- 3363 Jul, [facility] [id number] [place] [address] 26673- 1141 Jun, [facility] [id number] [place] [address] 41237- 2448 Jun, [facility] [address] [address]- 8000 May, [facility] [address] [address]- 6334 May, Diabetes mellitus 250.00 ; Hypothyroidism 244.9 ; Angina at rest 413.9 ; CVA (cerebral infarction) 434.91 ; Hypercholesterolemia 272.0 ; COPD (chronic obstructive pulmonary disease) 496 and GERD (gastroesophageal reflux disease) 530.81 [facility] [address], [place] [address]- 7946 30 Oct, 2010 [facility] [id number] [place] [address] 50125- 8946 Oct, [facility] [address], [place] [address]- 1756 Oct, [facility] [id number] [place] [address] 88364- 3696 Oct, [facility] [address], [place] [address] 2546 Sep, [facility] [address], [place] [address]- 5973 Aug, [facility] [address], [place] [address]- 5656 Aug, [facility] [address], [place] [address]- 5556 Aug, [facility] [address], [place] [address] 2546 Jul, [facility] [address], [place] [address] 2546 Jan, [facility] [address], [place] [address]- 2546 Oct, [facility] [address], [place] [address] 2546 Oct, [facility] [address], [place] [address]- 2546 Sep, [facility] [id number] [address]- 4570 Apr, [facility] [address] [facility] [id number] [place] [address]- 1667 10 Dec, 2008 IMMUNIZATIONS No Known Immunizations SOCIAL HISTORY Never Assessed REASON FOR VISIT Transfer of Pharmacy PLAN OF CARE VITAL SIGNS MEDICATIONS Medication [...] lobe Pneumonia 02/24/16 Hospitalization History Chest Pain--[facility] 05/19/16 Hospitalization History Chest pain--[facility] 06/18/16 Hospitalization History Influenza & COPD exacerbation 12/21 Hospitalization History Cardiac Monitoring 01/2018
--- OUTSIDE RECORDS SUMMARY | 2018-07-19 12:54 | XMS REPORT ---
Author Author MARIA MACKEY [facility] Address [address] [place] [address] Care Team Providers Care Stogy Maker Name Role Phone MARIA MACKEY Unavailable PROBLEMS Type Condition ICD9-CM Code EES37-JK Code Onset Dates Condition Status SNOMED Code Problem Angina at rest I20.8 Active 54743828 Problem Peptic ulcer K27.9 Active 71494662 Problem Constipation K59.00 Active 01765937 Problem Hospital discharge follow-up Z09 Active 991461725 Problem History of CVA (cerebrovascular accident) Z86.73 Active 531656003 Problem Type 2 diabetes mellitus without complication, without long-term current use of insulin E11.9 Active 031941278 Problem Hyperlipidemia LDL goal <100 E78.5 Active 83752118 Problem 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 Active 0391035895899 Problem 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 Active 226503252196 Problem Former smoker Z87.891 Active 2748660 Problem Hypothyroid E03.9 Active 54093104 Problem COPD (chronic obstructive pulmonary disease) J44.9 Active 60865559 Problem Osteopenia of spine M85.88 Active 969851470 Problem GERD (gastroesophageal reflux disease) K21.9 Active 332725611 ALLERGIES Substance Reaction Event Type Date Status Ultram hives Drug Allergy Oct, Active Fentanyl hives Drug Allergy Oct, Active ENCOUNTERS Encounter Location Date Diagnosis [facility] [address] [facility] [id number] [address] Apr, [facility] [address] [address] March, Hypothyroid E03.9 [facility] [id number] [address] March, Hypercholesterolemia E78.00 [facility] [id number] [place] [address] 33645- 3714 March, Hypothyroid E03.9 [facility] [id number] [place] [address] 13210- 8346 March, Hypercholesterolemia E78.00 [facility] [id number] [place] [address] 35412- 9473 Feb, Hypercholesterolemia E78.00 [facility] [id number] [place] [address] 91049- 1040 Feb, Type 2 diabetes mellitus without complication, without long- term current use of insulin E11.9 [facility] [id number] [place] [address] 94577- 3505 Feb, Hypothyroid E03.9 [facility] [id number] [place] [address] 19150- 6488 Jan, Hypothyroid E03.9 ; 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 ; Hospital discharge follow-up Z09 ; Type 2 diabetes mellitus without complication, without long-term current use of insulin E11.9 ; 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 and History of CVA (cerebrovascular accident) Z86.73 [facility] [place] [id number] [place] [address] 75374- 9035 Jan, [facility] [address] [address] Jan, [facility] [id number] [place] [address] 50382- 5222 Jan, Type 2 diabetes mellitus without complication, without long- term current use of insulin E11.9 [facility] [id number] [place] [address] 97061- 0903 Dec, Hospital discharge follow-up Z09 ; COPD (chronic obstructive pulmonary disease) J44.9 ; Type 2 diabetes mellitus without complication, without long-term current use of insulin E11.9 ; Hypothyroid E03.9 and Vaginal discharge N89.8 [facility] [address], [place] [address] Dec, Hypothyroid E03.9 [facility] [id number] [place] [address] 73732- 7105 Dec, Type 2 diabetes mellitus without complication, without long- term current use of insulin E11.9 [facility] [address], [place] [address] Nov, [facility] [id number] [place] [address] 26660- 8084 Nov, [facility] [id number] [place] [address] 89656- 5312 Nov, Pneumonia of right lower lobe due to infectious organism J18.1 ; Orthopnea R06.01 ; COPD with acute exacerbation J44.1 and Fatigue, unspecified type R53.83 [facility] [id number] [place] [address] 75694- 4077 Nov, [facility] [address] [address] Nov, [facility] [id number] [place] [address] 32466- 2333 Oct, Pneumonia of right lower lobe due to infectious organism J18.1 [facility] [address], [place] [address] 477[address] Oct, Pneumonia of right lower lobe due to infectious organism J18.1 [facility] [address], [place] [address] 3[address] Oct, Pneumonia of right lower lobe due to infectious organism J18.1 [facility] [address], [place] [address] 5[address] Oct, COPD exacerbation J44.1 [facility] [address], [place] [address] 69[address] Oct, [facility] [id number] [place] [address] 33794- 8793 20 Oct, 2017 COPD exacerbation J44.1 [facility] [address] 36261- 0827 11 Oct, 2017 Encounter for immunization Z23 and COPD (chronic obstructive pulmonary disease) J44.9 [facility] [address] 56509- 4506 Oct, Medicare annual wellness visit, subsequent Z00.00 ; History of tobacco use Z87.891 ; Need for Zostavax administration Z23 ; Post-menopausal Z78.0 ; Screening for breast cancer Z12.31 ; Screening for colon cancer Z12.11 ; 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 and Encounter for immunization Z23 [facility] [address] 69691- 8232 Sep, Type 2 diabetes mellitus without complication, without long- term current use of insulin E11.[address] 42158- 2322 Sep, Type 2 diabetes mellitus without complication, without long- term current use of insulin E11.9 ; COPD (chronic obstructive pulmonary disease ) J44.9 ; Hypothyroid E03.9 ; GERD (gastroesophageal reflux disease) K21.9 ; CVA (cerebral vascular accident) I63.9 ; Hyperlipidemia LDL goal <100 E78.5 ; Coronary artery disease of [place] heart with stable angina pectoris, unspecified vessel or lesion type I25.118 and 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 [facility] [id number] [place] [address] 28468- 8566 Aug, Type 2 diabetes mellitus without complication, without long- term current use of insulin E11.9 [facility] [address] 06990- 4382 Aug, Hypothyroid E03.9 [place] [id number] [place] [address] 57176- 5746 Aug, Type 2 diabetes mellitus without complication, without long- term current use of insulin E11.9 ; COPD (chronic obstructive pulmonary disease ) J44.9 ; Hypothyroid E03.9 ; GERD (gastroesophageal reflux disease) K21.9 ; CVA (cerebral vascular accident) I63.9 ; Hyperlipidemia LDL goal <100 E78.5 ; Coronary artery disease of [place] heart with stable angina pectoris, unspecified vessel or lesion type I25.118 and Encounter for immunization Z23 [facility] [address] 27186- 5735 Jul, Hypothyroid E03.9 and Hypercholesterolemia E78.00 [facility] [address] 03379- 7383 Jul, Hypothyroid E03.9 ; Diabetes mellitus E11.9 and Hypercholesterolemia E78.0 [facility] [address] 14315- 7625 Jul, Hypothyroid E03.9 ; Diabetes mellitus E11.9 and Hypercholesterolemia E78.0 [facility] [address] 20423- 3848 May, CVA (cerebral vascular accident) I63.9 and Dizziness R42 [address] 80863- 7670 May, Dehydration E86.0 ; CVA (cerebral vascular accident) I63.9 ; COPD (chronic obstructive pulmonary disease) J44.9 and Dizziness R42 [facility] [address] 41812- 2924 March, Diabetes mellitus E11.9 ; Angina at rest I20.8 ; COPD ( chronic obstructive pulmonary disease) J44.9 ; GERD (gastroesophageal reflux disease) K21.9 ; Hypercholesterolemia E78.00 ; CVA (cerebral vascular accident) I63.9 and Hypothyroid E03.9 [facility] [address] 70111- 9361 Jan, Hypothyroid E03.9 and Diabetes mellitus E11.9 [facility] [address] 50855- 6892 Jan, [facility] [address], [place] [address] Jan, Diabetes mellitus E11.9 [facility] [id number], [place] [address] 2546 Jan, [facility] [address], [place] [address] 2998 Dec, Diabetes mellitus E11.9 ; CVA (cerebral vascular accident) I63.9 ; COPD (chronic obstructive pulmonary disease) J44.9 ; Hypothyroid E03.9 ; GERD (gastroesophageal reflux disease) K21.9 and Hypercholesterolemia E78.00 [facility] [id number] [place] [address] 69530- 7865 Nov, Diabetes mellitus E11.9 [facility] [address], [place] [address] Nov, [facility] [id number] [place] [address] 57928- 0105 Nov, [facility] [address], [place] [address] 4123 Nov, [facility] [id number] [place] [address] 01573- 8961 Nov, Diabetes mellitus E11.9 [facility] [address], [place] [address]- 6186 Oct, Hypothyroid E03.9 [facility] [address], [place] [address] 254 Oct, Diabetes mellitus E11.9 [facility] [address], [place] [address]- 2894 Oct, COPD (chronic obstructive pulmonary disease) J44.9 [facility] [address], [place] [address]- 2546 Oct, [facility] [address], [place] [address]- 0372 Sep, Diabetes mellitus E11.9 ; Angina at rest I20.8 ; Hypercholesterolemia E78.0 ; COPD (chronic obstructive pulmonary disease) J44.9 ; GERD (gastroesophageal reflux disease) K21.9 ; Dysuria R30.0 ; Acquired hypothyroidism E03.9 ; Encounter for immunization Z23 and Acute cystitis without hematuria N30.00 [facility] [id number] [place] [address] 55867- 9855 Sep, Diabetes mellitus E11.9 [facility] [id number] [place] [address] 55406 -8206 Aug, [facility] [id number] [place] [address] 14392- 1337 Aug, Diabetes mellitus E11.9 [facility] [id number] [place] [address] 06644- 9538 Jun, Angina at rest I20.8 ; CVA (cerebral vascular accident) I63.9 ; Diabetes mellitus E11.9 ; Hypercholesterolemia E78.0 ; COPD (chronic obstructive pulmonary disease) J44.9 ; GERD (gastroesophageal reflux disease) K21.9 ; Peptic ulcer K27.9 and Hypothyroid E03.9 [facility] [id number] [place] [address] 77925- 1324 Jun, [facility] [id number] [place] [address] 11584- 5663 May, Diabetes mellitus E11.9 ; CVA (cerebral vascular accident) I63.9 ; COPD (chronic obstructive pulmonary disease) J44.9 and Angina at rest I20.8 [facility] [id number] [place] [address] 52488- 4023 May, [facility] [id number] [place] [address] 20965- 3095 May, Diabetes mellitus E11.9 ; Hypothyroid E03.9 ; Angina at rest I20.8 ; CVA (cerebral vascular accident) I63.9 ; COPD (chronic obstructive pulmonary disease) J44.9 ; GERD (gastroesophageal reflux disease) K21.9 and Hypercholesterolemia E78.0 [facility] [id number] [place] [address] 74467- 4322 Apr, Hypercholesterolemia E78.0 [facility] [id number] [place] [address] 28621- 0442 Apr, [facility] [id number] [place] [address] 19734- 3239 March, Diabetes mellitus E11.9 ; Hypothyroid E03.9 ; Hypercholesterolemia E78.0 ; COPD (chronic obstructive pulmonary disease) J44.9 ; GERD (gastroesophageal reflux disease) K21.9 ; Constipation K59.00 ; CVA ( cerebral vascular accident) I63.9 and Angina at rest I20.8 [facility] [id number] [place] [address] 80270- 7374 March, [facility] [id number] [place] [address] 88079- 4651 Feb, [facility] [id number] [place] [address] 73182- 2694 Feb, [facility] [id number] [place] [address] 21455- 2958 Feb, [facility] [id number] [place] [address] 07110- 0457 Jan, Diabetes mellitus E11.9 ; Hypercholesterolemia E78.0 ; CVA ( cerebral vascular accident) I63.9 ; GERD (gastroesophageal reflux disease) K21.9 ; Hypothyroid E03.9 and Angina at rest I20.8 [facility] [id number] [place] [address] 97702- 3020 Dec, Diabetes mellitus E11.9 ; Hypothyroid E03.9 ; Angina at rest I20.8 ; CVA (cerebral vascular accident) I63.9 ; Hypercholesterolemia E78.0 ; COPD (chronic obstructive pulmonary disease) J44.9 ; GERD ( gastroesophageal reflux disease) K21.9 and Dysuria R30.0 [facility] [address] [id number] [address]- [address] Nov, [facility] [id number] [place] [address] 40936- 2706 Nov, Hypothyroid E03.9 [facility] [id number] [place] [address] 65890- 6210 Nov, Hypothyroid E03.9 ; Angina at rest I20.8 ; CVA (cerebral vascular accident) I63.9 ; Hypercholesterolemia E78.0 ; COPD (chronic obstructive pulmonary disease) J44.9 ; GERD (gastroesophageal reflux disease) K21.9 and Diabetes E11.9 [facility] [id number] [place] [address] 93416 -3191 Oct, Upper respiratory symptom R09.89 [facility] [id number] [place] [address] 39136- 2269 Oct, [facility] [id number] [place] [address] 78522- 9455 Oct, [facility] [id number] [place] [address] 95209- 6183 Oct, [facility] [id number] [place] [address] 10962- 0812 Aug, Diabetes mellitus 250.00 ; Encounter for immunization Z23 ; Hypothyroid E03.9 ; Angina at rest I20.8 ; CVA (cerebral vascular accident) I63.9 ; Hypercholesterolemia E78.0 ; COPD (chronic obstructive pulmonary disease ) J44.9 and GERD (gastroesophageal reflux disease) K21.9 [facility] [id number] [place] [address] 24601- 2737 Jul, [facility] [id number] [place] [address] 55548- 2082 Jun, [facility] [id number] [place] [address] 77350- 6671 Jun, [facility] [id number] [place] [address] 88197- 0536 May, [facility] [address], [place] [address]- 4899 May, Diabetes mellitus 250.00 ; Hypothyroidism 244.9 ; Angina at rest 413.9 ; CVA (cerebral infarction) 434.91 ; Hypercholesterolemia 272.0 ; COPD (chronic obstructive pulmonary disease) 496 and GERD (gastroesophageal reflux disease) 530.81 [facility] [id number] [place] [address] 19386- 9246 Oct, [facility] [address], [place] [address]- 9100 Oct, [facility] [id number] [place] [address] 84283- 3586 Oct, [facility] [id number] [place] [address] 68509- 3971 Oct, [facility] [id number] [place] [address] 68562- 5588 Sep, [facility] [address] [address]88 Aug, [facility] [id number] [place] [address] 60347- 0433 Aug, [facility] [address], [place] [address]- 4136 Aug, [facility] [address], [place] [address]- 0806 Jul, [facility] [address], [place] [address]- 3209 Jan, [facility] [id number], [place] [address]- 2036 Oct, [facility] [address], [place] [address]- 2546 Oct, [facility] [id number] [place] [address] 39086- 2546 Sep, [facility] [address] [facility] [id number] [address]- 2546 Apr, [facility] [address] [facility] [id number] [address]- 2546 Dec, IMMUNIZATIONS Vaccine Route Administration Date Status ROCEPHIN 1 GM (IM) IM Intramuscular Oct 29, 2017 Administered SOCIAL HISTORY Never Assessed REASON FOR VISIT 1 wk pneumonia [id number] PLAN OF CARE Activity Details Follow Up pending chest xray and CT Reason: VITAL SIGNS Height 60 in 2017-10-29 Weight 161.8 lbs 2017-10-29 Temperature 97.6 degrees Fahrenheit 2017-10-29 Heart Rate 60 bpm 2017-10-29 Respiratory Rate 24 2017-10-29 Oximetry w/ oxygen @ 2L:99 % 2017-10-29 BMI 31.60 kg/m2 2017-10-29 Blood pressure systolic 124 mmHg 2017-10-29 Blood pressure diastolic 72 mmHg 2017-10-29 MEDICATIONS Medication Instructions Dosage Frequency Start Date End Date Duration Status Lancets test one time per day as directed Active OneTouch Ultra Test - In Vitro 3 times a day USE ONE STRIP TO CHECK GLUCOSE ONCE DAILY DIRECTED 8h Active Clopidogrel Bisulfate 75 MG Orally Once a day 1 tablet 24h Active Janumet 50-1000 mg Orally Twice a day 1 tablet with meals 12h Active Farxiga 5 Orally Once a day 1 tablet 24h 30 Not-Taking Ranexa 1000 MG Orally Twice a day 1 tablet 12h Active Fenofibrate 160 MG Orally Once a day 1 tablet with a meal 24h Jan, Active Levothyroxine Sodium 100 MCG Orally Once a day 1 tablet 24h 18 Nov, 2015 Active Oxygen Portable oxygen concentrator Use 2L nc O2 when up ambulating Oct, Active Levaquin 500 mg Orally Once a day 1 tablet 24h Oct, Oct, Active NitroMist 400 MCG/SPRAY Translingual Once a day 1 spray under the tongue 24h Active Protonix 40 mg Orally twice a day 1 tablet 12h Active Farxiga 5 mg Orally Once a day 1 tablet 24h Nov, 30 day(s) Active Acetaminophen 500 MG Orally every 6 hrs 2 tablets 6h Active Isosorbide Mononitrate ER 60 MG Orally Once a day 1 tablet 24h Active Atorvastatin Calcium 40 mg Orally Once a day at HS 1 tablet Active RESULTS Name Result Date Reference Range Xray : Chest (IN HOUSE) 2017-10-29 PROCEDURES Procedure Date Ordered Result Body Site CHEST X-RAY Oct 29, 2017 MEASURE BLOOD OXYGEN LEVEL Oct 29, 2017 [facility] VISIT ESTABLISHED PATIENT Oct 29, 2017 THER/PROPH/DIAG INJ, SC/IM Oct 29, 2017 ROCEPHIN 1 GM (IM) Oct 29, 2017 INSTRUCTIONS MEDICATIONS ADMINISTERED No Known Medications [...] lobe Pneumonia 02/24/16 Hospitalization History Chest Pain--[facility] 05/19/16 Hospitalization History Chest pain--[facility] 06/18/16 Hospitalization History Influenza & COPD exacerbation 12/21 Hospitalization History Cardiac Monitoring 01/2018
--- OUTSIDE RECORDS SUMMARY | 2018-07-19 12:55 | XMS REPORT ---
Author Author MARIA MACKEY [facility] Address [address] [place] [address] Care Team Providers Care Test Deck Supervisor Name Role Phone MARIA MACKEY Unavailable PROBLEMS Type Condition ICD9-CM Code JZH92-WG Code Onset Dates Condition Status SNOMED Code Problem Angina at rest I20.8 Active 79047014 Problem Peptic ulcer K27.9 Active 43347215 Problem Constipation K59.00 Active 11515336 Problem Hospital discharge follow-up Z09 Active 532024064 Problem History of CVA (cerebrovascular accident) Z86.73 Active 347501702 Problem Type 2 diabetes mellitus without complication, without long-term current use of insulin E11.9 Active 098816717 Problem Hyperlipidemia LDL goal <100 E78.5 Active 94405381 Problem 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 Active 9263198773377 Problem 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 Active 410970066728 Problem Former smoker Z87.891 Active 9926183 Problem Hypothyroid E03.9 Active 38432149 Problem COPD (chronic obstructive pulmonary disease) J44.9 Active 26648274 Problem Osteopenia of spine M85.88 Active 602531105 Problem GERD (gastroesophageal reflux disease) K21.9 Active 652350233 ALLERGIES No Information ENCOUNTERS Encounter Location Date Diagnosis [facility] [id number] [address] Apr, [facility] [id number] [address] March, Hypothyroid E03.9 [facility] [address], [place] [address] March, Hypercholesterolemia E78.00 [facility] [id number], [place] [address] 9[address] March, Hypothyroid E03.9 [place] [address], [place] [address] March, Hypercholesterolemia E78.00 [place] [place] [id number] [place] [address] 69517- 1543 Feb, Hypercholesterolemia E78.00 [place] [id number] [place] [address] 20503- 8053 Feb, Type 2 diabetes mellitus without complication, without long- term current use of insulin E11.9 [place] [id number] [place] [address] 44583- 1360 Feb, Hypothyroid E03.9 [place] [place] [id number] [place] [address] 04700- 0055 Jan, Hypothyroid E03.9 ; 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 ; Hospital discharge follow-up Z09 ; Type 2 diabetes mellitus without complication, without long-term current use of insulin E11.9 ; 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 and History of CVA (cerebrovascular accident) Z86.73 [place] [id number] [place] [address] 12512- 3084 Jan, [address] [place] [id number] [place] [address] 35059- 2784 Jan, [address] [place] [id number] [place] [address] 28589- 2094 Jan, Type 2 diabetes mellitus without complication, without long- term current use of insulin E11.9 [place] [address], [place] [address] Dec, Hospital discharge follow-up Z09 ; COPD (chronic obstructive pulmonary disease) J44.9 ; Type 2 diabetes mellitus without complication, without long-term current use of insulin E11.9 ; Hypothyroid E03.9 and Vaginal discharge N89.8 [place] [id number] [place] [address] 51935- 6239 Dec, Hypothyroid E03.9 [facility] [address], [place] [address] Dec, Type 2 diabetes mellitus without complication, without long- term current use of insulin E11.9 [facility] [address], [place] [address] 9146 Nov, [facility] [id number] [address] Nov, [facility] [address], [place] [address]99 Nov, Pneumonia of right lower lobe due to infectious organism J18.1 ; Orthopnea R06.01 ; COPD with acute exacerbation J44.1 and Fatigue, unspecified type R53.83 [facility] [address], [place] [address] 7[address] Nov, [facility] [address], [place] [address] 9083 Nov, [facility] [address], [place] [address] 4[address] Oct, Pneumonia of right lower lobe due to infectious organism J18.1 [facility] [address], [place] [address] Oct, Pneumonia of right lower lobe due to infectious organism J18.1 [facility] [address], [place] [address] 23[address] Oct, Pneumonia of right lower lobe due to infectious organism J18.1 [facility] [address], [place] [address] 5256 Oct, COPD exacerbation J44.1 [facility] [address], [place] [address] 0696 Oct, [facility] [address], [place] [address] 6576 Oct, COPD exacerbation J44.1 [place] [address], [place] [address] 0[address] 11 Oct, 2017 Encounter for immunization Z23 and COPD (chronic obstructive pulmonary disease) J44.9 [place] [id number] [place] [address] 11819- 0129 06 Oct, 2017 Medicare annual wellness visit, subsequent Z00.00 ; History of tobacco use Z87.891 ; Need for Zostavax administration Z23 ; Post-menopausal Z78.0 ; Screening for breast cancer Z12.31 ; Screening for colon cancer Z12.11 ; 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 and Encounter for immunization Z23 [place] [id number] [place] [address] 50886- 7220 Sep, Type 2 diabetes mellitus without complication, without long- term current use of insulin E11.9 [id number] [place] [address] 40344- 3460 Sep, Type 2 diabetes mellitus without complication, without long- term current use of insulin E11.9 ; COPD (chronic obstructive pulmonary disease ) J44.9 ; Hypothyroid E03.9 ; GERD (gastroesophageal reflux disease) K21.9 ; CVA (cerebral vascular accident) I63.9 ; Hyperlipidemia LDL goal <100 E78.5 ; Coronary artery disease of [place] heart with stable angina pectoris, unspecified vessel or lesion type I25.118 and 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 [place] [address] [place] [address] 55522- 5584 Aug, Type 2 diabetes mellitus without complication, without long- term current use of insulin E11.9 [place] [address] [place] [address] 65814- 9168 Aug, Hypothyroid E03.9 [address] [id number] [place] [address] 30394- 8772 Aug, Type 2 diabetes mellitus without complication, without long- term current use of insulin E11.9 ; COPD (chronic obstructive pulmonary disease ) J44.9 ; Hypothyroid E03.9 ; GERD (gastroesophageal reflux disease) K21.9 ; CVA (cerebral vascular accident) I63.9 ; Hyperlipidemia LDL goal <100 E78.5 ; Coronary artery disease of [place] heart with stable angina pectoris, unspecified vessel or lesion type I25.118 and Encounter for immunization Z23 [place] [address] [address] Jul, Hypothyroid E03.9 and Hypercholesterolemia E78.00 [place] [address] [address]- 6817 Jul, Hypothyroid E03.9 ; Diabetes mellitus E11.9 and Hypercholesterolemia E78.0 [place] [address] [address]- 9888 Jul, Hypothyroid E03.9 ; Diabetes mellitus E11.9 and Hypercholesterolemia E78.0 [place] [address] 8[address]89- 0619 May, CVA (cerebral vascular accident) I63.9 and Dizziness R42 [place] [address] [address]- 7066 May, Dehydration E86.0 ; CVA (cerebral vascular accident) I63.9 ; COPD (chronic obstructive pulmonary disease) J44.9 and Dizziness R42 [place] [id number] [place] [address] 84094- 5850 March, Diabetes mellitus E11.9 ; Angina at rest I20.8 ; COPD ( chronic obstructive pulmonary disease) J44.9 ; GERD (gastroesophageal reflux disease) K21.9 ; Hypercholesterolemia E78.00 ; CVA (cerebral vascular accident) I63.9 and Hypothyroid E03.9 [place] [address] [address]- 6131 Jan, Hypothyroid E03.9 and Diabetes mellitus E11.9 [place] [id number] [place] [address] 20612- 7505 Jan, [place] [address] 57[address]- 5941 Jan, Diabetes mellitus E11.9 [facility] [address], [place] [address] Jan, [facility] [id number] [place] [address] 02599- 9337 Dec, Diabetes mellitus E11.9 ; CVA (cerebral vascular accident) I63.9 ; COPD (chronic obstructive pulmonary disease) J44.9 ; Hypothyroid E03.9 ; GERD (gastroesophageal reflux disease) K21.9 and Hypercholesterolemia E78.00 [facility] [address], [place] [address]- 7125 Nov, Diabetes mellitus E11.9 [facility] [id number] [place] [address] 09245- 9985 Nov, [facility] [id number] [place] [address] 81983- 6413 Nov, [facility] [id number] [place] [address] 10370- 0930 Nov, [facility] [id number] [place] [address] 42180- 9640 Nov, Diabetes mellitus E11.9 [facility] [id number] [place] [address] 66902- 6292 Oct, Hypothyroid E03.9 [facility] [address], [place] [address]- 2994 Oct, Diabetes mellitus E11.9 [facility] [address], [place] [address]- 9096 Oct, COPD (chronic obstructive pulmonary disease) J44.9 [facility] [address], [place] [address]- 7662 Oct, [facility] [address], [place] [address]- 3650 Sep, Diabetes mellitus E11.9 ; Angina at rest I20.8 ; Hypercholesterolemia E78.0 ; COPD (chronic obstructive pulmonary disease) J44.9 ; GERD (gastroesophageal reflux disease) K21.9 ; Dysuria R30.0 ; Acquired hypothyroidism E03.9 ; Encounter for immunization Z23 and Acute cystitis without hematuria N30.00 [facility] [id number] [place] [address] 75792- 9190 Sep, Diabetes mellitus E11.9 [facility] [id number] [place] [address] 26326 -6890 Aug, [facility] [id number] [place] [address] 48130- 7016 Aug, Diabetes mellitus E11.9 [place] [address] 02744- 4875 Jun, Angina at rest I20.8 ; CVA (cerebral vascular accident) I63.9 ; Diabetes mellitus E11.9 ; Hypercholesterolemia E78.0 ; COPD (chronic obstructive pulmonary disease) J44.9 ; GERD (gastroesophageal reflux disease) K21.9 ; Peptic ulcer K27.9 and Hypothyroid E03.9 [facility] [id number] [place] [address] 90664- 1293 Jun, [place] [id number] [place] [address] 49582- 8057 May, Diabetes mellitus E11.9 ; CVA (cerebral vascular accident) I63.9 ; COPD (chronic obstructive pulmonary disease) J44.9 and Angina at rest I20.8 [facility] [id number] [place] [address] 62133- 7561 May, [address] [id number] [place] [address] 59867- 1180 May, Diabetes mellitus E11.9 ; Hypothyroid E03.9 ; Angina at rest I20.8 ; CVA (cerebral vascular accident) I63.9 ; COPD (chronic obstructive pulmonary disease) J44.9 ; GERD (gastroesophageal reflux disease) K21.9 and Hypercholesterolemia E78.0 [place] [place] [address] [place] [address]- 2243 Apr, Hypercholesterolemia E78.0 [place] [id number] 6[address]45- 9507 Apr, [facility] [id number] [place] [address] 92361- 0155 March, Diabetes mellitus E11.9 ; Hypothyroid E03.9 ; Hypercholesterolemia E78.0 ; COPD (chronic obstructive pulmonary disease) J44.9 ; GERD (gastroesophageal reflux disease) K21.9 ; Constipation K59.00 ; CVA ( cerebral vascular accident) I63.9 and Angina at rest I20.8 [address] [place] [address] 79028- 6332 March, [address] [id number] [place] [address] 27011- 7215 Feb, [place] [address] 48997- 9647 Feb, [facility] [id number] [place] [address] 23822- 4672 Feb, [address] [id number] [place] [address] 35679- 1870 Jan, Diabetes mellitus E11.9 ; Hypercholesterolemia E78.0 ; CVA ( cerebral vascular accident) I63.9 ; GERD (gastroesophageal reflux disease) K21.9 ; Hypothyroid E03.9 and Angina at rest I20.8 [address] [place] [id number] [place] [address] 34928- 1456 Dec, Diabetes mellitus E11.9 ; Hypothyroid E03.9 ; Angina at rest I20.8 ; CVA (cerebral vascular accident) I63.9 ; Hypercholesterolemia E78.0 ; COPD (chronic obstructive pulmonary disease) J44.9 ; GERD ( gastroesophageal reflux disease) K21.9 and Dysuria R30.0 [address] [place] [id number] [place] [address] 86413- 2783 Nov, [place] [address] [address]- 6498 Nov, Hypothyroid E03.9 [facility] [id number] [place] [address] 91651- 6677 Nov, Hypothyroid E03.9 ; Angina at rest I20.8 ; CVA (cerebral vascular accident) I63.9 ; Hypercholesterolemia E78.0 ; COPD (chronic obstructive pulmonary disease) J44.9 ; GERD (gastroesophageal reflux disease) K21.9 and Diabetes E11.9 [facility] [id number] [place] [address] 39008 -7566 Oct, Upper respiratory symptom R09.89 [facility] [id number] [place] [address] 55779- 1281 Oct, [facility] [id number] [place] [address] 56960- 3037 Oct, [facility] [id number] [place] [address] 66874- 8799 Oct, [facility] [id number] [place] [address] 33558- 8749 Aug, Diabetes mellitus 250.00 ; Encounter for immunization Z23 ; Hypothyroid E03.9 ; Angina at rest I20.8 ; CVA (cerebral vascular accident) I63.9 ; Hypercholesterolemia E78.0 ; COPD (chronic obstructive pulmonary disease ) J44.9 and GERD (gastroesophageal reflux disease) K21.9 [facility] [id number] [place] [address] 73279- 8521 Jul, [facility] [id number] [place] [address] 37059- 9951 Jun, [facility] [id number] [place] [address] 89785- 5915 Jun, [facility] [address], [place] [address]- 8471 May, [facility] [id number] [place] [address]- 5282 May, Diabetes mellitus 250.00 ; Hypothyroidism 244.9 ; Angina at rest 413.9 ; CVA (cerebral infarction) 434.91 ; Hypercholesterolemia 272.0 ; COPD (chronic obstructive pulmonary disease) 496 and GERD (gastroesophageal reflux disease) 530.81 [facility] [address], [place] [address]- 9396 30 Oct, 2010 [facility] [id number] [place] [address] 13503- 3806 Oct, [facility] [address], [place] [address]- 9846 Oct, [facility] [id number] [place] [address] 13403- 5586 Oct, [facility] [address] [place] [address] 2546 Sep, [facility] [address], [place] [address]- 4844 Aug, [facility] [address], [place] [address]- 0646 Aug, [facility] [address], [place] [address]- 7816 Aug, [facility] [address], [place] [address] 2546 Jul, [facility] [address], [place] [address] 2546 Jan, [facility] [address], [place] [address]- 2546 Oct, [facility] [address], [place] [address] 2546 Oct, [facility] [address], [place] [address]- 2546 Sep, [facility] [id number] [place] [address]6 Apr, [facility] [address] [facility] [id number] [place] [address]- 1938 Dec, IMMUNIZATIONS No Known Immunizations SOCIAL HISTORY Never Assessed REASON FOR VISIT Lab results/Rocephin Order/Deferred Xray Order PLAN OF CARE VITAL SIGNS MEDICATIONS Medication Instructions Dosage Frequency Start Date End Date Duration Status Levaquin 500 mg Orally Once a day 1 tablet 24h Oct, Nov, 05 days Active Diflucan 150 MG 1 tablet Oct, 1 dose Active RESULTS No Results PROCEDURES No Known [...] upper lobe Pneumonia 02/24/16 Hospitalization History Chest Pain--[facility] 05/19/16 Hospitalization History Chest pain--[facility] 06/18/16 Hospitalization History Influenza & COPD exacerbation 12/21 Hospitalization History Cardiac Monitoring 01/2018
--- OUTSIDE RECORDS SUMMARY | 2018-07-19 12:59 | XMS REPORT ---
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 Active [id number] Problem 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 Active 2764383941003 Problem History of CVA (cerebrovascular accident) Z86.73 Active 151595723 Problem Overweight (BMI 25.0-29.9) E66.3 Active 255271795 Problem Hospital discharge follow-up Z09 Active 347144807 Problem Osteopenia of spine M85.88 Active 483425666 Problem Former smoker Z87.891 Active 7084410 Problem GERD (gastroesophageal reflux disease) K21.9 Active 042114313 Problem Angina at rest I20.8 Active 54341360 Problem Hypothyroid E03.9 Active 71400036 Problem Constipation K59.00 Active 75777112 Problem COPD (chronic obstructive pulmonary disease) J44.9 Active 93175872 Problem Peptic ulcer K27.9 Active 73208163 ALLERGIES No Information ENCOUNTERS Encounter Location Date Diagnosis [facility] [address] [facility] [id number] [address] Jul, [facility] [id number] [address] Jun, [facility] [address] [address] Jun, [facility] [address] Jun, [facility] [id number] [place] [address] 474007- 7685 May, [facility] [id number] [place] [address] 278489- 5170 Apr, [facility] [id number] [place] [address] 005887- 6436 Apr, Type 2 diabetes mellitus without complication, without long- term current use of insulin E11.9 ; Hypothyroid E03.9 ; Hyperlipidemia LDL goal <100 E78.5 ; Overweight (BMI 25.0-29.9) E66.3 ; Vaginal candidiasis B37.3 ; COPD (chronic obstructive pulmonary disease) J44.9 ; CVA (cerebral vascular accident) I63.9 ; GERD (gastroesophageal reflux disease) K21.9 ; Angina at rest I20.8 and 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 [facility] [id number] [place] [address] 10036- 9384 March, Hypothyroid E03.9 [facility] [id number] [place] [address] 27015- 7597 March, Hypercholesterolemia E78.00 [facility] [id number] [place] [address] 78788- 7786 March, Hypothyroid E03.9 [facility] [id number] [address] March, Hypercholesterolemia E78.00 [facility] [id number] [place] [address] [id number]- 4745 Feb, Hypercholesterolemia E78.00 [facility] [id number] [address] [address] Feb, Type 2 diabetes mellitus without complication, without long- term current use of insulin E11.9 [place] [address] [address] 8175 Feb, Hypothyroid E03.9 [place] [id number] [place] [address] 46102- 2708 Jan, Hypothyroid E03.9 ; 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 ; Hospital discharge follow-up Z09 ; Type 2 diabetes mellitus without complication, without long-term current use of insulin E11.9 ; 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 and History of CVA (cerebrovascular accident) Z86.73 [place] [id number] [place] [address] 56292- 1394 Jan, [place] [id number] [place] [address] 43884- 4753 Jan, [place] [id number] [place] [address] 33136- 6328 Jan, Type 2 diabetes mellitus without complication, without long- term current use of insulin E11.9 [place] [id number] [place] [address] 54769- 2218 27 Dec, 2017 Hospital discharge follow-up Z09 ; COPD (chronic obstructive pulmonary disease) J44.9 ; Type 2 diabetes mellitus without complication, without long-term current use of insulin E11.9 ; Hypothyroid E03.9 and Vaginal discharge N89.8 [place] [id number] [place] [address] 01502- 0505 Dec, Hypothyroid E03.9 [place] [id number] [place] [address] 87986- 5299 Dec, Type 2 diabetes mellitus without complication, without long- term current use of insulin E11.9 [place] [id number] [place] [address] 00643- 6952 Nov, [place] [id number] [place] [address] 70458- 0897 Nov, [place] [address] [address] 17 Nov, 2017 Pneumonia of right lower lobe due to infectious organism J18.1 ; Orthopnea R06.01 ; COPD with acute exacerbation J44.1 and Fatigue, unspecified type R53.83 [place] [address] [address] 0847 Nov, [place] [id number] [place] [address] 62231- 4126 Nov, [place] [id number] [address] 9457 Oct, Pneumonia of right lower lobe due to infectious organism J18.1 [place] [address] [address] 8993 Oct, Pneumonia of right lower lobe due to infectious organism J18.1 [place] [id number] [address] 0007 Oct, Pneumonia of right lower lobe due to infectious organism J18.1 [place] [address] [address] 8841 Oct, COPD exacerbation J44.1 [place] [address] [address]- 8571 Oct, [place] [address] [address] 5143 Oct, COPD exacerbation J44.1 [place] [address] [address] 2823 Oct, Encounter for immunization Z23 and COPD (chronic obstructive pulmonary disease) J44.9 [place] [address] [address] 14[address] 06 Oct, 2017 Medicare annual wellness visit, subsequent Z00.00 ; History of tobacco use Z87.891 ; Need for Zostavax administration Z23 ; Post-menopausal Z78.0 ; Screening for breast cancer Z12.31 ; Screening for colon cancer Z12.11 ; 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 and Encounter for immunization Z23 [place] [id number] [place] [address] 65143- 6558 Sep, Type 2 diabetes mellitus without complication, without long- term current use of insulin E11.9 [place] [id number] [place] [address] 19373- 1520 Sep, Type 2 diabetes mellitus without complication, without long- term current use of insulin E11.9 ; COPD (chronic obstructive pulmonary disease ) J44.9 ; Hypothyroid E03.9 ; GERD (gastroesophageal reflux disease) K21.9 ; CVA (cerebral vascular accident) I63.9 ; Hyperlipidemia LDL goal <100 E78.5 ; Coronary artery disease of samish heart with stable angina pectoris, unspecified vessel or lesion type I25.118 and 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 [place] [id number] [place] [address] 47713- 9687 Aug, Type 2 diabetes mellitus without complication, without long- term current use of insulin E11.9 [place] [id number] [place] [address] 57018- 6491 Aug, Hypothyroid E03.9 [place] [id number] [place] [address] 63112- 3923 Aug, Type 2 diabetes mellitus without complication, without long- term current use of insulin E11.9 ; COPD (chronic obstructive pulmonary disease ) J44.9 ; Hypothyroid E03.9 ; GERD (gastroesophageal reflux disease) K21.9 ; CVA (cerebral vascular accident) I63.9 ; Hyperlipidemia LDL goal <100 E78.5 ; Coronary artery disease of samish heart with stable angina pectoris, unspecified vessel or lesion type I25.118 and Encounter for immunization Z23 [place] [id number] [place] [address] 71498- 4525 Jul, Hypothyroid E03.9 and Hypercholesterolemia E78.00 [place] [id number] [place] [address] 45011- 9540 Jul, Hypothyroid E03.9 ; Diabetes mellitus E11.9 and Hypercholesterolemia E78.0 [facility] [id number] [place] [address] 12260- 1134 Jul, Hypothyroid E03.9 ; Diabetes mellitus E11.9 and Hypercholesterolemia E78.0 [facility] [id number] [place] [address] 65153- 6619 May, CVA (cerebral vascular accident) I63.9 and Dizziness R42 [facility] [id number] [place] [address] 75831- 1117 May, Dehydration E86.0 ; CVA (cerebral vascular accident) I63.9 ; COPD (chronic obstructive pulmonary disease) J44.9 and Dizziness R42 [place] [id number] [place] [address] 36361- 3279 March, Diabetes mellitus E11.9 ; Angina at rest I20.8 ; COPD ( chronic obstructive pulmonary disease) J44.9 ; GERD (gastroesophageal reflux disease) K21.9 ; Hypercholesterolemia E78.00 ; CVA (cerebral vascular accident) I63.9 and Hypothyroid E03.9 [place] [id number] [place] [address] 96353- 5209 Jan, Hypothyroid E03.9 and Diabetes mellitus E11.9 [place] [id number] [place] [address] 55619- 9983 Jan, [place] [id number] [place] [address] 15351- 3899 Jan, Diabetes mellitus E11.9 [place] [id number] [place] [address] 16567- 0274 Jan, [place] [id number] [place] [address] 22119- 6275 Dec, Diabetes mellitus E11.9 ; CVA (cerebral vascular accident) I63.9 ; COPD (chronic obstructive pulmonary disease) J44.9 ; Hypothyroid E03.9 ; GERD (gastroesophageal reflux disease) K21.9 and Hypercholesterolemia E78.00 [facility] [id number] [place] [address] 36939- 9115 Nov, Diabetes mellitus E11.9 [facility] [id number] [place] [address] 65084- 4424 Nov, [facility] [id number] [place] [address] 99722- 2050 Nov, [facility] [address] 24946- 3156 Nov, [facility] [address] 36391- 9318 Nov, Diabetes mellitus E11.9 [facility] [address] 46894- 2475 Oct, Hypothyroid E03.9 [facility] [address] 14973- 4310 Oct, Diabetes mellitus E11.9 [facility] [id number] [place] [address] 83660- 9006 Oct, COPD (chronic obstructive pulmonary disease) J44.9 [facility] [id number] [place] [address] 52117- 1902 Oct, [facility] [id number] [place] [address] 71159- 7495 Sep, Diabetes mellitus E11.9 ; Angina at rest I20.8 ; Hypercholesterolemia E78.0 ; COPD (chronic obstructive pulmonary disease) J44.9 ; GERD (gastroesophageal reflux disease) K21.9 ; Dysuria R30.0 ; Acquired hypothyroidism E03.9 ; Encounter for immunization Z23 and Acute cystitis without hematuria N30.00 [facility] [id number] [place] [address] 69888- 3895 Sep, Diabetes mellitus E11.9 [facility] [id number] [place] [address] 29407 -6895 Aug, [place] [address] [address]- 9021 Aug, Diabetes mellitus E11.9 [place] [id number] [place] [address] 40098- 6006 Jun, Angina at rest I20.8 ; CVA (cerebral vascular accident) I63.9 ; Diabetes mellitus E11.9 ; Hypercholesterolemia E78.0 ; COPD (chronic obstructive pulmonary disease) J44.9 ; GERD (gastroesophageal reflux disease) K21.9 ; Peptic ulcer K27.9 and Hypothyroid E03.9 [place] [id number] [place] [address] 05575- 0148 Jun, [place] [id number] [place] [address] 92810- 6806 May, Diabetes mellitus E11.9 ; CVA (cerebral vascular accident) I63.9 ; COPD (chronic obstructive pulmonary disease) J44.9 and Angina at rest I20.8 [place] [id number] [place] [address] 04974- 5917 May, [place] [id number] [place] [address] 30188- 9000 May, Diabetes mellitus E11.9 ; Hypothyroid E03.9 ; Angina at rest I20.8 ; CVA (cerebral vascular accident) I63.9 ; COPD (chronic obstructive pulmonary disease) J44.9 ; GERD (gastroesophageal reflux disease) K21.9 and Hypercholesterolemia E78.0 [place] [id number] [place] [address] 06010- 5908 Apr, Hypercholesterolemia E78.0 [place] [id number] [place] [address] 16388- 4366 Apr, [place] [id number] [place] [address] 63148- 0353 March, Diabetes mellitus E11.9 ; Hypothyroid E03.9 ; Hypercholesterolemia E78.0 ; COPD (chronic obstructive pulmonary disease) J44.9 ; GERD (gastroesophageal reflux disease) K21.9 ; Constipation K59.00 ; CVA ( cerebral vascular accident) I63.9 and Angina at rest I20.8 [place] [id number] [place] [address] 05062- 2242 March, [place] [id number] [place] [address] 49527- 1449 Feb, [place] [id number] [place] [address] 84688- 6089 Feb, [place] [id number] [place] [address] 30689- 5487 Feb, [place] [id number] [place] [address] 35484- 7714 Jan, Diabetes mellitus E11.9 ; Hypercholesterolemia E78.0 ; CVA ( cerebral vascular accident) I63.9 ; GERD (gastroesophageal reflux disease) K21.9 ; Hypothyroid E03.9 and Angina at rest I20.8 [place] [address] [place] [address] 51520- 6191 Dec, Diabetes mellitus E11.9 ; Hypothyroid E03.9 ; Angina at rest I20.8 ; CVA (cerebral vascular accident) I63.9 ; Hypercholesterolemia E78.0 ; COPD (chronic obstructive pulmonary disease) J44.9 ; GERD ( gastroesophageal reflux disease) K21.9 and Dysuria R30.0 [address] [address]- 1024 Nov, [place] [id number] [place] [address] 02382- 8947 Nov, Hypothyroid E03.9 [place] [id number] [place] [address] 25404- 1080 Nov, Hypothyroid E03.9 ; Angina at rest I20.8 ; CVA (cerebral vascular accident) I63.9 ; Hypercholesterolemia E78.0 ; COPD (chronic obstructive pulmonary disease) J44.9 ; GERD (gastroesophageal reflux disease) K21.9 and Diabetes E11.9 [facility] [id number] [place] [address] 60270 -0571 Oct, Upper respiratory symptom R09.89 [facility] [address] 42791- 8427 Oct, [facility] [address] 45974- 8102 Oct, [facility] [address] 22761- 9442 Oct, [facility] [address] 98228- 8225 Aug, Diabetes mellitus 250.00 ; Encounter for immunization Z23 ; Hypothyroid E03.9 ; Angina at rest I20.8 ; CVA (cerebral vascular accident) I63.9 ; Hypercholesterolemia E78.0 ; COPD (chronic obstructive pulmonary disease ) J44.9 and GERD (gastroesophageal reflux disease) K21.9 [facility] [id number] [place] [address] 74337- 7911 Jul, [facility] [address] 28278- 1403 Jun, [facility] [id number] [place] [address] 43807- 2219 Jun, [facility] [id number] [place] [address] 07241- 0792 May, [facility] [address] 59344- 7425 May, Diabetes mellitus 250.00 ; Hypothyroidism 244.9 ; Angina at rest 413.9 ; CVA (cerebral infarction) 434.91 ; Hypercholesterolemia 272.0 ; COPD (chronic obstructive pulmonary disease) 496 and GERD (gastroesophageal reflux disease) 530.81 [facility] [id number] [place] [address] 00860- 1342 Oct, [facility] [address] 48763- 5986 Oct, [facility] [address] [facility] [id number] 3814 Oct, [facility] [address] [facility] [id number], [place] [address]- 5716 Oct, [facility] [address], [place] [address]- 4081 Sep, [facility] [address] [facility] [id number], [place] [address]- 6524 Aug, [facility] [address] [facility] [id number], [place] [address]- 9522 Aug, [facility] [id number] [place] [address] 56243- 3863 Aug, [facility] [address], [place] [address]- 7219 Jul, [facility] [id number] [place] [address] 11699- 9203 Jan, [facility] [address] 9191 Oct, [facility] [address] [address]- 7045 Oct, [facility] [id number] 8257 Sep, [facility] [address] [address]- 4161 Apr, [facility] [id number] [address]- 0356 Dec, IMMUNIZATIONS No Known Immunizations SOCIAL HISTORY Never Assessed REASON FOR VISIT Refill request PLAN OF CARE VITAL SIGNS MEDICATIONS Medication Instructions Dosage Frequency Start Date End Date Duration Status Atorvastatin Calcium 40 Orally Once a day at HS 1 tablet 90 Active RESULTS No Results PROCEDURES No Known [...] lobe Pneumonia 02/24/16 Hospitalization History Chest Pain--[facility]ia [facility] 05/19/16 Hospitalization History Chest pain--[facility] 06/18/16 Hospitalization History Influenza & COPD exacerbation 12/21 Hospitalization History Cardiac Monitoring 01/2018 Hospitalization History Via [facility], tripped and hit head 04/2018
--- OUTSIDE RECORDS SUMMARY | 2018-07-19 12:59 | XMS REPORT ---
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 Active [id number] Problem 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 Active 0379882749801 Problem History of CVA (cerebrovascular accident) Z86.73 Active 028229602 Problem Overweight (BMI 25.0-29.9) E66.3 Active 638990506 Problem Hospital discharge follow-up Z09 Active 793857979 Problem Osteopenia of spine M85.88 Active 518952397 Problem Former smoker Z87.891 Active 5244512 Problem GERD (gastroesophageal reflux disease) K21.9 Active 834636503 Problem Angina at rest I20.8 Active 41264220 Problem Hypothyroid E03.9 Active 44031002 Problem Constipation K59.00 Active 73688539 Problem COPD (chronic obstructive pulmonary disease) J44.9 Active 75049521 Problem Peptic ulcer K27.9 Active 35114051 ALLERGIES No Information ENCOUNTERS Encounter Location Date Diagnosis [facility] [address] [facility] [id number] [address] Jul, [facility] [id number], [place] [address] Jun, [facility] [address], [place] [address] Jun, [facility] [address] [address] Jun, [facility] [id number] [place] [address] 853484- 5171 May, [facility] [id number] [place] [address] 769552- 2390 Apr, [facility] [id number] [place] [address] 220486- 9172 Apr, Type 2 diabetes mellitus without complication, without long- term current use of insulin E11.9 ; Hypothyroid E03.9 ; Hyperlipidemia LDL goal <100 E78.5 ; Overweight (BMI 25.0-29.9) E66.3 ; Vaginal candidiasis B37.3 ; COPD (chronic obstructive pulmonary disease) J44.9 ; CVA (cerebral vascular accident) I63.9 ; GERD (gastroesophageal reflux disease) K21.9 ; Angina at rest I20.8 and 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 [facility] [id number] [place] [address] 87254- 5667 March, Hypothyroid E03.9 [facility] [id number] [place] [address] 16136- 0779 March, Hypercholesterolemia E78.00 [facility] [id number] [place] [address] 85939- 0232 March, Hypothyroid E03.9 [facility] [id number], [place] [address] March, Hypercholesterolemia E78.00 [facility] [id number] [place] [address] [id number]- 6325 Feb, Hypercholesterolemia E78.00 [facility] [id number] [address] Feb, Type 2 diabetes mellitus without complication, without long- term current use of insulin E11.9 [facility] [address], [place] [address] Feb, Hypothyroid E03.9 [facility] [id number] [place] [address] 48825- 5084 Jan, Hypothyroid E03.9 ; 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 ; Hospital discharge follow-up Z09 ; Type 2 diabetes mellitus without complication, without long-term current use of insulin E11.9 ; 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 and History of CVA (cerebrovascular accident) Z86.73 [facility] [id number] [place] [address] 71585- 1390 Jan, [facility] [id number] [place] [address] 40898- 4938 Jan, [facility] [id number] [place] [address] 92775- 3628 Jan, Type 2 diabetes mellitus without complication, without long- term current use of insulin E11.9 [facility] [id number] [place] [address] 55220- 9378 27 Dec, 2017 Hospital discharge follow-up Z09 ; COPD (chronic obstructive pulmonary disease) J44.9 ; Type 2 diabetes mellitus without complication, without long-term current use of insulin E11.9 ; Hypothyroid E03.9 and Vaginal discharge N89.8 [facility] [id number] [place] [address] 18423- 7604 Dec, Hypothyroid E03.9 [facility] [id number] [place] [address] 64163- 5305 Dec, Type 2 diabetes mellitus without complication, without long- term current use of insulin E11.9 [facility] [id number] [place] [address] 36273- 3445 Nov, [facility] [id number] [place] [address] 56589- 0219 Nov, [facility] [address], [place] [address] 17 Nov, 2017 Pneumonia of right lower lobe due to infectious organism J18.1 ; Orthopnea R06.01 ; COPD with acute exacerbation J44.1 and Fatigue, unspecified type R53.83 [facility] [address], [place] [address] 68[address] Nov, [facility] [id number] [place] [address] 66903- 5731 Nov, [facility] [id number], [place] [address] 4243 Oct, Pneumonia of right lower lobe due to infectious organism J18.1 [facility] [address], [place] [address] 4316 Oct, Pneumonia of right lower lobe due to infectious organism J18.1 [facility] [id number] [address] 4[address] Oct, Pneumonia of right lower lobe due to infectious organism J18.1 [facility] [address], [place] [address] 1331 Oct, COPD exacerbation J44.1 [facility] [id number], [place] [address] 0555 Oct, [facility] [address], [place] [address] 20[address] Oct, COPD exacerbation J44.1 [facility] [address], [place] [address] 26[address] Oct, Encounter for immunization Z23 and COPD (chronic obstructive pulmonary disease) J44.9 [facility] [address], [place] [address] 06 Oct, 2017 Medicare annual wellness visit, subsequent Z00.00 ; History of tobacco use Z87.891 ; Need for Zostavax administration Z23 ; Post-menopausal Z78.0 ; Screening for breast cancer Z12.31 ; Screening for colon cancer Z12.11 ; 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 and Encounter for immunization Z23 [facility] [id number] [place] [address] 01618- 5798 Sep, Type 2 diabetes mellitus without complication, without long- term current use of insulin E11.9 [facility] [id number] [place] [address] 19085- 6541 Sep, Type 2 diabetes mellitus without complication, without long- term current use of insulin E11.9 ; COPD (chronic obstructive pulmonary disease ) J44.9 ; Hypothyroid E03.9 ; GERD (gastroesophageal reflux disease) K21.9 ; CVA (cerebral vascular accident) I63.9 ; Hyperlipidemia LDL goal <100 E78.5 ; Coronary artery disease of [place] heart with stable angina pectoris, unspecified vessel or lesion type I25.118 and 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 [facility] [id number] [place] [address] 92258- 6243 Aug, Type 2 diabetes mellitus without complication, without long- term current use of insulin E11.9 [facility] [id number] [place] [address] 92849- 3649 Aug, Hypothyroid E03.9 [facility] [id number] [place] [address] 22861- 3521 Aug, Type 2 diabetes mellitus without complication, without long- term current use of insulin E11.9 ; COPD (chronic obstructive pulmonary disease ) J44.9 ; Hypothyroid E03.9 ; GERD (gastroesophageal reflux disease) K21.9 ; CVA (cerebral vascular accident) I63.9 ; Hyperlipidemia LDL goal <100 E78.5 ; Coronary artery disease of [place] heart with stable angina pectoris, unspecified vessel or lesion type I25.118 and Encounter for immunization Z23 [facility] [facility] [id number] [place] [address] 96596- 4622 Jul, Hypothyroid E03.9 and Hypercholesterolemia E78.00 [facility] [id number] [place] [address] 33276- 9978 Jul, Hypothyroid E03.9 ; Diabetes mellitus E11.9 and Hypercholesterolemia E78.0 [facility] [id number] [place] [address] 51530- 5563 Jul, Hypothyroid E03.9 ; Diabetes mellitus E11.9 and Hypercholesterolemia E78.0 [facility] [id number] [place] [address] 14620- 3613 May, CVA (cerebral vascular accident) I63.9 and Dizziness R42 [facility] [id number] [place] [address] 45635- 0141 May, Dehydration E86.0 ; CVA (cerebral vascular accident) I63.9 ; COPD (chronic obstructive pulmonary disease) J44.9 and Dizziness R42 [place] [facility] [id number] [place] [address] 44805- 6185 March, Diabetes mellitus E11.9 ; Angina at rest I20.8 ; COPD ( chronic obstructive pulmonary disease) J44.9 ; GERD (gastroesophageal reflux disease) K21.9 ; Hypercholesterolemia E78.00 ; CVA (cerebral vascular accident) I63.9 and Hypothyroid E03.9 [place] [id number] [place] [address] 80613- 1567 Jan, Hypothyroid E03.9 and Diabetes mellitus E11.9 [facility] [facility] [id number] [place] [address] 07865- 0335 Jan, [facility] [id number] [place] [address] 28729- 1543 Jan, Diabetes mellitus E11.9 [place] [id number] [place] [address] 79838- 8911 Jan, [facility] [facility] [id number] [place] [address] 60026- 3826 Dec, Diabetes mellitus E11.9 ; CVA (cerebral vascular accident) I63.9 ; COPD (chronic obstructive pulmonary disease) J44.9 ; Hypothyroid E03.9 ; GERD (gastroesophageal reflux disease) K21.9 and Hypercholesterolemia E78.00 [facility] [id number] [place] [address] 56097- 0563 Nov, Diabetes mellitus E11.9 [facility] [id number] [place] [address] 78143- 5573 Nov, [facility] [id number] [place] [address] 64830- 9666 Nov, [facility] [address] 17318- 4370 Nov, [facility] [address] 74875- 5669 Nov, Diabetes mellitus E11.9 [facility] [address] 43144- 6975 Oct, Hypothyroid E03.9 [facility] [address] 44266- 9250 Oct, Diabetes mellitus E11.9 [facility] [id number] [place] [address] 16185- 9643 Oct, COPD (chronic obstructive pulmonary disease) J44.9 [facility] [id number] [place] [address] 52036- 6188 Oct, [facility] [id number] [place] [address] 28678- 5924 Sep, Diabetes mellitus E11.9 ; Angina at rest I20.8 ; Hypercholesterolemia E78.0 ; COPD (chronic obstructive pulmonary disease) J44.9 ; GERD (gastroesophageal reflux disease) K21.9 ; Dysuria R30.0 ; Acquired hypothyroidism E03.9 ; Encounter for immunization Z23 and Acute cystitis without hematuria N30.00 [facility] [id number] [place] [address] 02051- 0445 Sep, Diabetes mellitus E11.9 [facility] [id number] [place] [address] 49027 -4833 Aug, [facility] [address], [place] [address]- 7758 Aug, Diabetes mellitus E11.9 [facility] [facility] [id number] [place] [address] 46975- 9945 Jun, Angina at rest I20.8 ; CVA (cerebral vascular accident) I63.9 ; Diabetes mellitus E11.9 ; Hypercholesterolemia E78.0 ; COPD (chronic obstructive pulmonary disease) J44.9 ; GERD (gastroesophageal reflux disease) K21.9 ; Peptic ulcer K27.9 and Hypothyroid E03.9 [place] [id number] [place] [address] 09342- 7535 Jun, [facility] [facility] [id number] [place] [address] 72627- 3580 May, Diabetes mellitus E11.9 ; CVA (cerebral vascular accident) I63.9 ; COPD (chronic obstructive pulmonary disease) J44.9 and Angina at rest I20.8 [facility] [id number] [place] [address] 63896- 0016 May, [facility] [id number] [place] [address] 25553- 2626 May, Diabetes mellitus E11.9 ; Hypothyroid E03.9 ; Angina at rest I20.8 ; CVA (cerebral vascular accident) I63.9 ; COPD (chronic obstructive pulmonary disease) J44.9 ; GERD (gastroesophageal reflux disease) K21.9 and Hypercholesterolemia E78.0 [facility] [id number] [place] [address] 01283- 2553 Apr, Hypercholesterolemia E78.0 [facility] [address] [place] [address] 54952- 1925 Apr, [facility] [id number] [place] [address] 83883- 0912 March, Diabetes mellitus E11.9 ; Hypothyroid E03.9 ; Hypercholesterolemia E78.0 ; COPD (chronic obstructive pulmonary disease) J44.9 ; GERD (gastroesophageal reflux disease) K21.9 ; Constipation K59.00 ; CVA ( cerebral vascular accident) I63.9 and Angina at rest I20.8 [facility] [id number] [place] [address] 83223- 3583 March, [facility] [id number] [place] [address] 74596- 2762 Feb, [facility] [id number] [place] [address] 13407- 3588 Feb, [facility] [id number] [place] [address] 68144- 1143 Feb, [facility] [id number] [place] [address] 96168- 8272 Jan, Diabetes mellitus E11.9 ; Hypercholesterolemia E78.0 ; CVA ( cerebral vascular accident) I63.9 ; GERD (gastroesophageal reflux disease) K21.9 ; Hypothyroid E03.9 and Angina at rest I20.8 [facility] [address] [place] [address] 39487- 4044 Dec, Diabetes mellitus E11.9 ; Hypothyroid E03.9 ; Angina at rest I20.8 ; CVA (cerebral vascular accident) I63.9 ; Hypercholesterolemia E78.0 ; COPD (chronic obstructive pulmonary disease) J44.9 ; GERD ( gastroesophageal reflux disease) K21.9 and Dysuria R30.[address], [place] [address]- 0174 Nov, [facility] [id number] [place] [address] 79140- 9508 Nov, Hypothyroid E03.9 [facility] [place] [id number] [place] [address] 49643- 6378 Nov, Hypothyroid E03.9 ; Angina at rest I20.8 ; CVA (cerebral vascular accident) I63.9 ; Hypercholesterolemia E78.0 ; COPD (chronic obstructive pulmonary disease) J44.9 ; GERD (gastroesophageal reflux disease) K21.9 and Diabetes E11.9 [facility] [address] [place] [address] 36773 -9643 Oct, Upper respiratory symptom R09.89 [facility] [address] 47092- 2758 Oct, [facility] [address] 49242- 5137 Oct, [facility] [address] 54949- 2869 Oct, [facility] [address] 32583- 8585 Aug, Diabetes mellitus 250.00 ; Encounter for immunization Z23 ; Hypothyroid E03.9 ; Angina at rest I20.8 ; CVA (cerebral vascular accident) I63.9 ; Hypercholesterolemia E78.0 ; COPD (chronic obstructive pulmonary disease ) J44.9 and GERD (gastroesophageal reflux disease) K21.9 [facility] [id number] [place] [address] 94446- 4753 Jul, [facility] [address] 47537- 6817 Jun, [facility] [id number] [place] [address] 21710- 1943 Jun, [facility] [id number] [place] [address] 46977- 8187 May, [facility] [address] 09711- 5537 May, Diabetes mellitus 250.00 ; Hypothyroidism 244.9 ; Angina at rest 413.9 ; CVA (cerebral infarction) 434.91 ; Hypercholesterolemia 272.0 ; COPD (chronic obstructive pulmonary disease) 496 and GERD (gastroesophageal reflux disease) 530.81 [facility] [id number] [place] [address] 00073- 9989 Oct, [facility] [address] 41031- 4376 Oct, [facility] [address] 6526 Oct, [facility] [address], [place] [address]- 5339 Oct, [facility] [address], [place] [address]- 3263 Sep, [facility] [address], [place] [address]- 1768 Aug, [facility] [address], [place] [address]- 9451 Aug, [facility] [address] [place] [address] 12459- 1402 Aug, [facility] [address] [place] [address] 79096- 2604 Jul, [facility] [address] [place] [address] 28344- 0241 Jan, [facility] [address] [place] [address] 912258- 8527 Oct, [facility] [id number], [place] [address]- 2977 Oct, [facility] [id number], [place] [address]- 1877 Sep, [facility] [address], [place] [address]- 0061 Apr, [facility] [id number], [place] [address]- 9593 Dec, IMMUNIZATIONS No Known Immunizations SOCIAL HISTORY Never Assessed REASON FOR VISIT Medication refill request PLAN OF CARE VITAL SIGNS MEDICATIONS Unknown [...] Pneumonia 02/24/16 Hospitalization History Chest Pain--[facility] 05/19/16 Hospitalization History Chest pain--[facility] 06/18/16 Hospitalization History Influenza & COPD exacerbation 12/21 Hospitalization History Cardiac Monitoring 01/2018 Hospitalization History Via [facility], tripped and hit head 04/2018
--- OUTSIDE RECORDS SUMMARY | 2018-07-19 13:00 | XMS REPORT ---
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 Active 283064095041 Problem Type 2 diabetes mellitus without complication, without long-term current use of insulin E11.9 Active 567438581 Problem CVA (cerebral vascular accident) I63.9 Active 777455098 Problem 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 Active 548108401176145 Problem 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 Active 8086588091251 Problem History of CVA (cerebrovascular accident) Z86.73 Active 981752406 Problem Overweight (BMI 25.0-29.9) E66.3 Active 641891751 Problem Hospital discharge follow-up Z09 Active 643351821 Problem Osteopenia of spine M85.88 Active 776984170 Problem Former smoker Z87.891 Active 3104705 Problem GERD (gastroesophageal reflux disease) K21.9 Active 531872713 Problem Angina at rest I20.8 Active 99653723 Problem Hypothyroid E03.9 Active 81465044 Problem Constipation K59.00 Active 85325981 Problem COPD (chronic obstructive pulmonary disease) J44.9 Active 70002825 Problem Peptic ulcer K27.9 Active 50998537 ALLERGIES Substance Reaction Event Type Date Status Ultram hives Drug Allergy Apr, Active Fentanyl hives Drug Allergy Apr, Active ENCOUNTERS Encounter Location Date Diagnosis [facility] [address] [facility] [id number] [address] Jul, [facility] [address] [facility] [id number], [place] [address] Jun, [facility] [id number] [place] [address] 115411- 4869 Jun, [facility] [id number] [place] [address] 37831- 5080 Jun, [facility] [id number] [place] [address] 07500- 4220 May, [facility] [address] [address]- 5924 Apr, [facility] [id number] [place] [address] 53094- 0043 Apr, Type 2 diabetes mellitus without complication, without long- term current use of insulin E11.9 ; Hypothyroid E03.9 ; Hyperlipidemia LDL goal <100 E78.5 ; Overweight (BMI 25.0-29.9) E66.3 ; Vaginal candidiasis B37.3 ; COPD (chronic obstructive pulmonary disease) J44.9 ; CVA (cerebral vascular accident) I63.9 ; GERD (gastroesophageal reflux disease) K21.9 ; Angina at rest I20.8 and 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 [facility] [id number] [place] [address] 46531- 5304 March, Hypothyroid E03.9 [facility] [id number] [place] [address] 02815- 3254 March, Hypercholesterolemia E78.00 [facility] [id number] [place] [address] 12465- 5597 March, Hypothyroid E03.9 [facility] [id number] [place] [address] 73457- 4042 March, Hypercholesterolemia E78.00 [facility] [id number] [place] [address] 28818- 6111 Feb, Hypercholesterolemia E78.00 [facility] [id number] [place] [address] 37941- 8802 Feb, Type 2 diabetes mellitus without complication, without long- term current use of insulin E11.9 [facility] [id number] [place] [address] 37046- 8723 Feb, Hypothyroid E03.9 [facility] [id number] [place] [address] 26448- 9317 Jan, Hypothyroid E03.9 ; 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 ; Hospital discharge follow-up Z09 ; Type 2 diabetes mellitus without complication, without long-term current use of insulin E11.9 ; 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 and History of CVA (cerebrovascular accident) Z86.73 [facility] [id number] [place] [address] 59827- 7982 Jan, [facility] [address] 34670- 3315 Jan, [facility] [id number] [place] [address] 03643- 5805 Jan, Type 2 diabetes mellitus without complication, without long- term current use of insulin E11.9 [facility] [id number] [place] [address] 81010- 3545 27 Dec, 2017 Hospital discharge follow-up Z09 ; COPD (chronic obstructive pulmonary disease) J44.9 ; Type 2 diabetes mellitus without complication, without long-term current use of insulin E11.9 ; Hypothyroid E03.9 and Vaginal discharge N89.8 [facility] [id number] [place] [address] 05111- 0648 Dec, Hypothyroid E03.9 [facility] [id number] [place] [address] 36831- 5842 Dec, Type 2 diabetes mellitus without complication, without long- term current use of insulin E11.9 [facility] [id number] [place] [address] 09321- 6087 Nov, [facility] [address] [place] [address] 0297 Nov, [facility] [address] [address] Nov, Pneumonia of right lower lobe due to infectious organism J18.1 ; Orthopnea R06.01 ; COPD with acute exacerbation J44.1 and Fatigue, unspecified type R53.83 [facility] [address] [id number] [address] 9608 Nov, [facility] [address] [id number] [address] 4367 Nov, [facility] [id number] [place] [address] 11743- 6060 Oct, Pneumonia of right lower lobe due to infectious organism J18.1 [facility] [address] [address] 8981 Oct, Pneumonia of right lower lobe due to infectious organism J18.1 [facility] [address] [address] 0948 Oct, Pneumonia of right lower lobe due to infectious organism J18.1 [facility] [address] [place] [address] 14040- 2302 Oct, COPD exacerbation J44.1 [facility] [address] [address] 36[address] Oct, [facility] [address] [address] 5605 Oct, COPD exacerbation J44.1 [facility] [address] [place] [address] 82042- 5008 Oct, Encounter for immunization Z23 and COPD (chronic obstructive pulmonary disease) J44.9 [facility] [address] [address] 67[address] 06 Oct, 2017 Medicare annual wellness visit, subsequent Z00.00 ; History of tobacco use Z87.891 ; Need for Zostavax administration Z23 ; Post-menopausal Z78.0 ; Screening for breast cancer Z12.31 ; Screening for colon cancer Z12.11 ; 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 and Encounter for immunization Z23 [facility] [id number] [place] [address] Sep, Type 2 diabetes mellitus without complication, without long- term current use of insulin E11.9 [facility] [address] 48680- 9997 Sep, Type 2 diabetes mellitus without complication, without long- term current use of insulin E11.9 ; COPD (chronic obstructive pulmonary disease ) J44.9 ; Hypothyroid E03.9 ; GERD (gastroesophageal reflux disease) K21.9 ; CVA (cerebral vascular accident) I63.9 ; Hyperlipidemia LDL goal <100 E78.5 ; Coronary artery disease of [place] heart with stable angina pectoris, unspecified vessel or lesion type I25.118 and 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 [facility] [address] 61929- 6721 Aug, Type 2 diabetes mellitus without complication, without long- term current use of insulin E11.9 [facility] [id number] [place] [address] 47163- 3597 Aug, Hypothyroid E03.9 [facility] [id number] [place] [address]609 Aug, Type 2 diabetes mellitus without complication, without long- term current use of insulin E11.9 ; COPD (chronic obstructive pulmonary disease ) J44.9 ; Hypothyroid E03.9 ; GERD (gastroesophageal reflux disease) K21.9 ; CVA (cerebral vascular accident) I63.9 ; Hyperlipidemia LDL goal <100 E78.5 ; Coronary artery disease of [place] heart with stable angina pectoris, unspecified vessel or lesion type I25.118 and Encounter for immunization Z23 [facility] [address] [place] [address] 65492- 9848 Jul, Hypothyroid E03.9 and Hypercholesterolemia E78.[address] [address]- 0545 Jul, Hypothyroid E03.9 ; Diabetes mellitus E11.9 and Hypercholesterolemia E78.0 [facility] [id number] [place] [address] 25640- 6772 Jul, Hypothyroid E03.9 ; Diabetes mellitus E11.9 and Hypercholesterolemia E78.0 [facility] [id number] [place] [address] 05640- 8606 May, CVA (cerebral vascular accident) I63.9 and Dizziness R42 [facility] [id number] [place] [address] 28920- 6273 May, Dehydration E86.0 ; CVA (cerebral vascular accident) I63.9 ; COPD (chronic obstructive pulmonary disease) J44.9 and Dizziness R42 [facility] [place] [id number] [place] [address] 25964- 7556 March, Diabetes mellitus E11.9 ; Angina at rest I20.8 ; COPD ( chronic obstructive pulmonary disease) J44.9 ; GERD (gastroesophageal reflux disease) K21.9 ; Hypercholesterolemia E78.00 ; CVA (cerebral vascular accident) I63.9 and Hypothyroid E03.9 [facility] [place] [address] [address]- 8724 Jan, Hypothyroid E03.9 and Diabetes mellitus E11.9 [facility] [address] [place] [address]- 0009 Jan, [facility] [id number] [place] [address] 40200- 8342 Jan, Diabetes mellitus E11.9 [facility] [id number] [place] [address] 78898- 6308 Jan, [facility] [address] [place] [address] 12403- 8878 Dec, Diabetes mellitus E11.9 ; CVA (cerebral vascular accident) I63.9 ; COPD (chronic obstructive pulmonary disease) J44.9 ; Hypothyroid E03.9 ; GERD (gastroesophageal reflux disease) K21.9 and Hypercholesterolemia E78.00 [facility] [id number] [place] [address] 77614- 8297 Nov, Diabetes mellitus E11.9 [facility] [id number] [place] [address] 74194- 0113 Nov, [facility] [address] 92308- 8079 Nov, [facility] [id number] [place] [address] 18598- 0538 Nov, [facility] [id number] [place] [address] 06644- 7312 Nov, Diabetes mellitus E11.9 [facility] [id number] [place] [address] 05812- 1945 Oct, Hypothyroid E03.9 [facility] [id number] [place] [address] 20890- 6677 Oct, Diabetes mellitus E11.9 [facility] [id number] [place] [address] 06463- 9399 Oct, COPD (chronic obstructive pulmonary disease) J44.9 [facility] [id number] [place] [address] 18320- 3904 Oct, [facility] [id number] [place] [address] 96557- 6358 Sep, Diabetes mellitus E11.9 ; Angina at rest I20.8 ; Hypercholesterolemia E78.0 ; COPD (chronic obstructive pulmonary disease) J44.9 ; GERD (gastroesophageal reflux disease) K21.9 ; Dysuria R30.0 ; Acquired hypothyroidism E03.9 ; Encounter for immunization Z23 and Acute cystitis without hematuria N30.00 [facility] [id number] [place] [address] 86946- 8532 Sep, Diabetes mellitus E11.9 [facility] [address] [id number] [address] Aug, [facility] [address], [place] [address]- 1429 Aug, Diabetes mellitus E11.9 [facility] [address] [address]- 5565 Jun, Angina at rest I20.8 ; CVA (cerebral vascular accident) I63.9 ; Diabetes mellitus E11.9 ; Hypercholesterolemia E78.0 ; COPD (chronic obstructive pulmonary disease) J44.9 ; GERD (gastroesophageal reflux disease) K21.9 ; Peptic ulcer K27.9 and Hypothyroid E03.9 [facility] [place] [id number] [place] [address] 30054- 1068 Jun, [facility] [id number] [place] [address] 34640- 4634 May, Diabetes mellitus E11.9 ; CVA (cerebral vascular accident) I63.9 ; COPD (chronic obstructive pulmonary disease) J44.9 and Angina at rest I20.8 [facility] [address] [address]- 1320 May, [facility] [place] [address] [place] [address] 57773- 4463 May, Diabetes mellitus E11.9 ; Hypothyroid E03.9 ; Angina at rest I20.8 ; CVA (cerebral vascular accident) I63.9 ; COPD (chronic obstructive pulmonary disease) J44.9 ; GERD (gastroesophageal reflux disease) K21.9 and Hypercholesterolemia E78.0 [facility] [address], [place] [address]- 5977 Apr, Hypercholesterolemia E78.0 [facility] [place] [address] [place] [address] 63203- 4527 Apr, [facility] [address] [place] [address] 14025- 5581 March, Diabetes mellitus E11.9 ; Hypothyroid E03.9 ; Hypercholesterolemia E78.0 ; COPD (chronic obstructive pulmonary disease) J44.9 ; GERD (gastroesophageal reflux disease) K21.9 ; Constipation K59.00 ; CVA ( cerebral vascular accident) I63.9 and Angina at rest I20.8 [facility] [place] [address] [address]- 8690 March, [facility] [id number] [place] [address] 72637- 3819 Feb, [facility] [id number] [place] [address] 71083- 4533 Feb, [facility] [place] [id number] [place] [address] 89730- 6979 Feb, [facility] [place] [id number] [place] [address] 79391- 8332 Jan, Diabetes mellitus E11.9 ; Hypercholesterolemia E78.0 ; CVA ( cerebral vascular accident) I63.9 ; GERD (gastroesophageal reflux disease) K21.9 ; Hypothyroid E03.9 and Angina at rest I20.8 [facility] [address] [place] [address] 07058- 4138 Dec, Diabetes mellitus E11.9 ; Hypothyroid E03.9 ; Angina at rest I20.8 ; CVA (cerebral vascular accident) I63.9 ; Hypercholesterolemia E78.0 ; COPD (chronic obstructive pulmonary disease) J44.9 ; GERD ( gastroesophageal reflux disease) K21.9 and Dysuria R30.0 [facility] [place] [address] [address]- 2818 Nov, [facility] [place] [address] [place] [address] 00760- 4796 Nov, Hypothyroid E03.9 [facility] [place] [address] [place] [address] 62287- 4451 Nov, Hypothyroid E03.9 ; Angina at rest I20.8 ; CVA (cerebral vascular accident) I63.9 ; Hypercholesterolemia E78.0 ; COPD (chronic obstructive pulmonary disease) J44.9 ; GERD (gastroesophageal reflux disease) K21.9 and Diabetes E11.9 [facility] [id number] [place] [address] 95537 -0211 Oct, Upper respiratory symptom R09.89 [facility] [id number] [place] [address] 95239- 8693 Oct, [facility] [address] 07362- 4575 Oct, [facility] [address] 12627- 5410 Oct, [facility] [address] 33277- 1753 Aug, Diabetes mellitus 250.00 ; Encounter for immunization Z23 ; Hypothyroid E03.9 ; Angina at rest I20.8 ; CVA (cerebral vascular accident) I63.9 ; Hypercholesterolemia E78.0 ; COPD (chronic obstructive pulmonary disease ) J44.9 and GERD (gastroesophageal reflux disease) K21.9 [facility] [place] [address] [place] [address] 79708- 3366 Jul, [facility] [place] [id number] [place] [address] 78886- 0344 Jun, [facility] [id number] [place] [address] 48441- 5566 Jun, [facility] [place] [address] [place] [address] 83308- 6937 May, [facility] [place] [address] [place] [address] 97320- 5572 May, Diabetes mellitus 250.00 ; Hypothyroidism 244.9 ; Angina at rest 413.9 ; CVA (cerebral infarction) 434.91 ; Hypercholesterolemia 272.0 ; COPD (chronic obstructive pulmonary disease) 496 and GERD (gastroesophageal reflux disease) 530.81 [place] [address] 28021- 8127 Oct, [facility] [address] [facility] [id number], [place] [address]- 1726 Oct, [facility] [address] [facility] [id number], [place] [address]- 5816 Oct, [facility] [address] [facility] [id number], [place] [address]- 9756 Oct, [facility] [address] [facility] [id number], [place] [address]- 2936 Sep, [facility] [address] [facility] [id number] 2595 Aug, [facility] [address] [facility] [id number], [place] [address]- 8726 Aug, [facility] [address] [facility] [id number], [place] [address]- 1552 Aug, [facility] [address] [id number] [address]- 5832 Jul, [facility] [address] [facility] [id number], [place] [address]- 9487 Jan, [facility] [address] [id number] 3656 Oct, [facility] [address], [place] [address]- 7036 Oct, [facility] [address] [id number], [place] [address]- 6403 Sep, [facility] [address] [facility] [id number], [place] [address]- 9944 Apr, [facility] [address] [id number] 9447 Dec, IMMUNIZATIONS No Known Immunizations SOCIAL HISTORY Never Assessed REASON FOR VISIT Transition of Care-awoods, states she is here for a check-up PLAN OF CARE Activity Details Follow Up 3 Months, prn Reason:CHM/DM VITAL SIGNS Height 60 in 2018-04-20 Weight 152.9 lbs 2018-04-20 Temperature 97.6 degrees Fahrenheit 2018-04-20 Heart Rate 60 bpm 2018-04-20 Respiratory Rate 22 2018-04-20 Oximetry on room air:94 % 2018-04-20 BMI 29.86 kg/m2 2018-04-20 Blood pressure systolic 130 mmHg 2018-04-20 Blood pressure diastolic 62 mmHg 2018-04-20 MEDICATIONS Medication Instructions Dosage Frequency Start Date End Date Duration Status Levothyroxine Sodium 88 MCG Orally Once a day 1 tablet on an empty stomach in the morning 24h March, Active Losartan Potassium 50 MG Orally Once a day 1 tablet 24h Active Clopidogrel Bisulfate 75 MG Orally Once a day 1 tablet 24h Active NitroMist 400 MCG/SPRAY Translingual Once a day 1 spray under the tongue 24h Active Acetaminophen 500 MG Orally every 6 hrs 2 tablets 6h Active Ranexa 1000 MG Orally Twice a day 1 tablet 12h Active Janumet 50-1000 mg Orally Twice a day 1 tablet with meals 12h Active Nystatin 997053 UNIT/GM Externally Twice a day 1 application to affected area 12h Dec, Active Glucometer 1 glucometer Please dispense 1 insurance compatible glucometer kit Jan, Active OneTouch Ultra Test - In Vitro 3 times a day USE ONE STRIP TO CHECK GLUCOSE ONCE DAILY DIRECTED 8h Active Oxygen Portable oxygen concentrator Use 2L nc O2 when up ambulating Oct, Active Aspirin 81 81 MG Orally Once [...] Result Date Reference Range A1C (IN HOUSE) 2018-04-20 A1C IN HOUSE 6.5 4.3 - 5.6 % Previous A1c 6.7 Lot [id number] Exp date 01/20 MICROALBUMIN, URINE (IN HOUSE) 2018-04-20 MICROALBUMIN normal Lot # [id number] Exp date 10/20 Clarity clear Color yellow ALB 30 CRE 50 A:C (IN HOUSE) <30 Control Control Lot # Exp date PROCEDURES Procedure Date Ordered Result Body Site GLYCATED HEMOGLOBIN TEST April 20, 2018 MICROALBUMIN, SEMIQUANT April 20, 2018 [facility] VISIT ESTABLISHED PATIENT April 20, 2018 INSTRUCTIONS MEDICATIONS ADMINISTERED No Known Medications [...] lobe Pneumonia 02/24/16 Hospitalization History Chest Pain--[facility] 05/19/16 Hospitalization History Chest pain--[facility] 06/18/16 Hospitalization History Influenza & COPD exacerbation 12/21 Hospitalization History Cardiac Monitoring 01/2018 Hospitalization History [facility], tripped and hit head 04/2018
--- OUTSIDE RECORDS SUMMARY | 2018-07-19 13:00 | XMS REPORT ---
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 Active [id number] Problem 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 Active 4773258918522 Problem History of CVA (cerebrovascular accident) Z86.73 Active 566592881 Problem Overweight (BMI 25.0-29.9) E66.3 Active 561883438 Problem Hospital discharge follow-up Z09 Active 671345874 Problem Osteopenia of spine M85.88 Active 838400534 Problem Former smoker Z87.891 Active 4199519 Problem GERD (gastroesophageal reflux disease) K21.9 Active 444109734 Problem Angina at rest I20.8 Active 39638796 Problem Hypothyroid E03.9 Active 46713154 Problem Constipation K59.00 Active 16056330 Problem COPD (chronic obstructive pulmonary disease) J44.9 Active 11378064 Problem Peptic ulcer K27.9 Active 03463299 ALLERGIES No Information ENCOUNTERS Encounter Location Date Diagnosis [facility] [address] [facility] [id number] [address] Jul, [facility] [id number] [address] Jun, [facility] [address], [place] [address] Jun, [facility] [address] [address] Jun, [facility] [id number] [place] [address] 903684- 0825 May, [facility] [id number] [place] [address] 002724- 5449 Apr, [facility] [id number] [place] [address] 616575- 2875 Apr, Type 2 diabetes mellitus without complication, without long- term current use of insulin E11.9 ; Hypothyroid E03.9 ; Hyperlipidemia LDL goal <100 E78.5 ; Overweight (BMI 25.0-29.9) E66.3 ; Vaginal candidiasis B37.3 ; COPD (chronic obstructive pulmonary disease) J44.9 ; CVA (cerebral vascular accident) I63.9 ; GERD (gastroesophageal reflux disease) K21.9 ; Angina at rest I20.8 and 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 [facility] [id number] [place] [address] 99134- 5276 March, Hypothyroid E03.9 [facility] [id number] [place] [address] 24883- 6631 March, Hypercholesterolemia E78.00 [facility] [id number] [place] [address] 90022- 0791 March, Hypothyroid E03.9 [facility] [id number] [address] 1237 March, Hypercholesterolemia E78.00 [facility] [id number] [place] [address] [id number]- 4121 Feb, Hypercholesterolemia E78.00 [facility] [id number] [address] [address]14 Feb, Type 2 diabetes mellitus without complication, without long- term current use of insulin E11.9 [place] [address], [place] [address] 8921 Feb, Hypothyroid E03.9 [place] [id number] [place] [address] 43599- 4628 Jan, Hypothyroid E03.9 ; 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 ; Hospital discharge follow-up Z09 ; Type 2 diabetes mellitus without complication, without long-term current use of insulin E11.9 ; 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 and History of CVA (cerebrovascular accident) Z86.73 [place] [id number] [place] [address] 14660- 2450 Jan, [place] [id number] [place] [address] 98058- 3310 Jan, [place] [id number] [place] [address] 61978- 0614 Jan, Type 2 diabetes mellitus without complication, without long- term current use of insulin E11.9 [place] [id number] [place] [address] 81403- 9532 27 Dec, 2017 Hospital discharge follow-up Z09 ; COPD (chronic obstructive pulmonary disease) J44.9 ; Type 2 diabetes mellitus without complication, without long-term current use of insulin E11.9 ; Hypothyroid E03.9 and Vaginal discharge N89.8 [place] [id number] [place] [address] 71619- 8719 Dec, Hypothyroid E03.9 [place] [id number] [place] [address] 66862- 7988 Dec, Type 2 diabetes mellitus without complication, without long- term current use of insulin E11.9 [place] [address] [place] [address] 88393- 8563 Nov, [place] [id number] [place] [address] 84286- 5319 Nov, [place] [address], [place] [address] 4948 17 Nov, 2017 Pneumonia of right lower lobe due to infectious organism J18.1 ; Orthopnea R06.01 ; COPD with acute exacerbation J44.1 and Fatigue, unspecified type R53.83 [place] [address], [place] [address]- 1179 Nov, [place] [id number] [place] [address] 59699- 9537 Nov, [place] [address] [address] 0980 Oct, Pneumonia of right lower lobe due to infectious organism J18.1 [place] [address], [place] [address]- 8488 Oct, Pneumonia of right lower lobe due to infectious organism J18.1 [place] [address] [address] 1339 Oct, Pneumonia of right lower lobe due to infectious organism J18.1 [place] [address], [place] [address]- 0122 Oct, COPD exacerbation J44.1 [place] [address], [place] [address]- 7102 Oct, [place] [address], [place] [address]- 8243 Oct, COPD exacerbation J44.1 [place] [address], [place] [address]- 6105 Oct, Encounter for immunization Z23 and COPD (chronic obstructive pulmonary disease) J44.9 [place] [address] [address]- 68[address] 06 Oct, 2017 Medicare annual wellness visit, subsequent Z00.00 ; History of tobacco use Z87.891 ; Need for Zostavax administration Z23 ; Post-menopausal Z78.0 ; Screening for breast cancer Z12.31 ; Screening for colon cancer Z12.11 ; 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 and Encounter for immunization Z23 [place] [id number] [place] [address] 57241- 9264 Sep, Type 2 diabetes mellitus without complication, without long- term current use of insulin E11.9 [place] [id number] [place] [address] 24902- 6743 Sep, Type 2 diabetes mellitus without complication, without long- term current use of insulin E11.9 ; COPD (chronic obstructive pulmonary disease ) J44.9 ; Hypothyroid E03.9 ; GERD (gastroesophageal reflux disease) K21.9 ; CVA (cerebral vascular accident) I63.9 ; Hyperlipidemia LDL goal <100 E78.5 ; Coronary artery disease of [place] heart with stable angina pectoris, unspecified vessel or lesion type I25.118 and 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 [place] [id number] [place] [address] 24326- 5935 Aug, Type 2 diabetes mellitus without complication, without long- term current use of insulin E11.9 [place] [id number] [place] [address] 84093- 1939 Aug, Hypothyroid E03.9 [place] [id number] [place] [address] 56361- 0286 Aug, Type 2 diabetes mellitus without complication, without long- term current use of insulin E11.9 ; COPD (chronic obstructive pulmonary disease ) J44.9 ; Hypothyroid E03.9 ; GERD (gastroesophageal reflux disease) K21.9 ; CVA (cerebral vascular accident) I63.9 ; Hyperlipidemia LDL goal <100 E78.5 ; Coronary artery disease of [place] heart with stable angina pectoris, unspecified vessel or lesion type I25.118 and Encounter for immunization Z23 [place] [id number] [place] [address] 36072- 6412 Jul, Hypothyroid E03.9 and Hypercholesterolemia E78.00 [place] [id number] [place] [address] 96889- 1379 Jul, Hypothyroid E03.9 ; Diabetes mellitus E11.9 and Hypercholesterolemia E78.0 [facility] [id number] [place] [address] 61792- 5225 Jul, Hypothyroid E03.9 ; Diabetes mellitus E11.9 and Hypercholesterolemia E78.0 [facility] [id number] [place] [address] 53031- 3087 May, CVA (cerebral vascular accident) I63.9 and Dizziness R42 [facility] [id number] [place] [address] 87851- 8262 May, Dehydration E86.0 ; CVA (cerebral vascular accident) I63.9 ; COPD (chronic obstructive pulmonary disease) J44.9 and Dizziness R42 [address] [id number] [place] [address] 05277- 2977 March, Diabetes mellitus E11.9 ; Angina at rest I20.8 ; COPD ( chronic obstructive pulmonary disease) J44.9 ; GERD (gastroesophageal reflux disease) K21.9 ; Hypercholesterolemia E78.00 ; CVA (cerebral vascular accident) I63.9 and Hypothyroid E03.9 [address] [id number] [place] [address] 79109- 1774 Jan, Hypothyroid E03.9 and Diabetes mellitus E11.9 [place] [id number] [place] [address] 41250- 3851 Jan, [place] [id number] [place] [address] 20491- 0193 Jan, Diabetes mellitus E11.9 [address] [id number] [place] [address] 60865- 8092 Jan, [place] [id number] [place] [address] 85754- 2650 Dec, Diabetes mellitus E11.9 ; CVA (cerebral vascular accident) I63.9 ; COPD (chronic obstructive pulmonary disease) J44.9 ; Hypothyroid E03.9 ; GERD (gastroesophageal reflux disease) K21.9 and Hypercholesterolemia E78.00 [facility] [id number] [place] [address] 32930- 4665 Nov, Diabetes mellitus E11.9 [facility] [id number] [place] [address] 15907- 3217 Nov, [facility] [id number] [place] [address] 28404- 8278 Nov, [facility] [address] 33132- 2243 Nov, [facility] [address] 65117- 8076 Nov, Diabetes mellitus E11.9 [facility] [address] 50075- 8444 Oct, Hypothyroid E03.9 [facility] [address] 70351- 5126 Oct, Diabetes mellitus E11.9 [facility] [id number] [place] [address] 30700- 2789 Oct, COPD (chronic obstructive pulmonary disease) J44.9 [facility] [id number] [place] [address] 06910- 8333 Oct, [facility] [id number] [place] [address] 33816- 2914 Sep, Diabetes mellitus E11.9 ; Angina at rest I20.8 ; Hypercholesterolemia E78.0 ; COPD (chronic obstructive pulmonary disease) J44.9 ; GERD (gastroesophageal reflux disease) K21.9 ; Dysuria R30.0 ; Acquired hypothyroidism E03.9 ; Encounter for immunization Z23 and Acute cystitis without hematuria N30.00 [facility] [id number] [place] [address] 11029- 6967 Sep, Diabetes mellitus E11.9 [facility] [id number] [place] [address] 48177 -8149 Aug, [place] [address] [address]- 9230 Aug, Diabetes mellitus E11.9 [place] [id number] [place] [address] 18408- 3794 Jun, Angina at rest I20.8 ; CVA (cerebral vascular accident) I63.9 ; Diabetes mellitus E11.9 ; Hypercholesterolemia E78.0 ; COPD (chronic obstructive pulmonary disease) J44.9 ; GERD (gastroesophageal reflux disease) K21.9 ; Peptic ulcer K27.9 and Hypothyroid E03.9 [place] [id number] [place] [address] 13184- 4435 Jun, [place] [id number] [place] [address] 85280- 9955 May, Diabetes mellitus E11.9 ; CVA (cerebral vascular accident) I63.9 ; COPD (chronic obstructive pulmonary disease) J44.9 and Angina at rest I20.8 [place] [id number] [place] [address] 95029- 1682 May, [place] [id number] [place] [address] 48073- 3248 May, Diabetes mellitus E11.9 ; Hypothyroid E03.9 ; Angina at rest I20.8 ; CVA (cerebral vascular accident) I63.9 ; COPD (chronic obstructive pulmonary disease) J44.9 ; GERD (gastroesophageal reflux disease) K21.9 and Hypercholesterolemia E78.0 [place] [id number] [place] [address] 25204- 8815 Apr, Hypercholesterolemia E78.0 [place] [id number] [place] [address] 50943- 4769 Apr, [place] [id number] [place] [address] 22859- 5506 March, Diabetes mellitus E11.9 ; Hypothyroid E03.9 ; Hypercholesterolemia E78.0 ; COPD (chronic obstructive pulmonary disease) J44.9 ; GERD (gastroesophageal reflux disease) K21.9 ; Constipation K59.00 ; CVA ( cerebral vascular accident) I63.9 and Angina at rest I20.8 [place] [id number] [place] [address] 86222- 4820 March, [place] [id number] [place] [address] 63868- 8941 Feb, [place] [id number] [place] [address] 64418- 0802 Feb, [place] [id number] [place] [address] 82743- 0034 Feb, [place] [id number] [place] [address] 75955- 2347 Jan, Diabetes mellitus E11.9 ; Hypercholesterolemia E78.0 ; CVA ( cerebral vascular accident) I63.9 ; GERD (gastroesophageal reflux disease) K21.9 ; Hypothyroid E03.9 and Angina at rest I20.8 [place] [address] [place] [address] 59981- 5896 Dec, Diabetes mellitus E11.9 ; Hypothyroid E03.9 ; Angina at rest I20.8 ; CVA (cerebral vascular accident) I63.9 ; Hypercholesterolemia E78.0 ; COPD (chronic obstructive pulmonary disease) J44.9 ; GERD ( gastroesophageal reflux disease) K21.9 and Dysuria R30.[address] [address]- 4407 Nov, [place] [id number] [place] [address] 99615- 2178 Nov, Hypothyroid E03.9 [id number] [place] [address] 76496- 9951 Nov, Hypothyroid E03.9 ; Angina at rest I20.8 ; CVA (cerebral vascular accident) I63.9 ; Hypercholesterolemia E78.0 ; COPD (chronic obstructive pulmonary disease) J44.9 ; GERD (gastroesophageal reflux disease) K21.9 and Diabetes E11.9 [facility] [address] [place] [address] 45801 -3260 Oct, Upper respiratory symptom R09.89 [facility] [address] 94101- 3314 Oct, [facility] [address] 53455- 5836 Oct, [facility] [address] 77777- 7876 Oct, [facility] [address] 87631- 0631 Aug, Diabetes mellitus 250.00 ; Encounter for immunization Z23 ; Hypothyroid E03.9 ; Angina at rest I20.8 ; CVA (cerebral vascular accident) I63.9 ; Hypercholesterolemia E78.0 ; COPD (chronic obstructive pulmonary disease ) J44.9 and GERD (gastroesophageal reflux disease) K21.9 [facility] [id number] [place] [address] 43566- 2992 Jul, [facility] [address] 97475- 8053 Jun, [facility] [id number] [place] [address] 78867- 4611 Jun, [facility] [id number] [place] [address] 06981- 5674 May, [facility] [address] 86253- 8404 May, Diabetes mellitus 250.00 ; Hypothyroidism 244.9 ; Angina at rest 413.9 ; CVA (cerebral infarction) 434.91 ; Hypercholesterolemia 272.0 ; COPD (chronic obstructive pulmonary disease) 496 and GERD (gastroesophageal reflux disease) 530.81 [facility] [id number] [place] [address] 80120- 6875 Oct, [facility] [address] 24773- 7971 Oct, [facility] [address]- 5289 Oct, [facility] [address] 5115 Oct, [facility] [address], [place] [address]- 6218 Sep, [facility] [address]- 7687 Aug, [facility] [address] 9871 Aug, [facility] [address] [place] [address] 345042- 4414 Aug, [facility] [address] [place] [address] 006305- 0079 Jul, [facility] [address] [place] [address] 70483- 4831 Jan, [facility] [id number] [place] [address] 621858- 8119 Oct, [facility] [address], [place] [address]- 2082 Oct, [facility] [id number] 3033 Sep, [facility] [address], [place] [address]- 2452 Apr, [facility] [id number], [place] [address]- 5715 Dec, IMMUNIZATIONS No Known Immunizations SOCIAL HISTORY [facility] 06/18/16 Hospitalization History Influenza & COPD exacerbation 12/21 Hospitalization History Cardiac Monitoring 01/2018 Hospitalization History [facility] ER, tripped and hit head 04/2018
--- OUTSIDE RECORDS SUMMARY | 2018-07-19 13:01 | XMS REPORT ---
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 Active [id number] Problem 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 Active 5449030669447 Problem History of CVA (cerebrovascular accident) Z86.73 Active 960790819 Problem Overweight (BMI 25.0-29.9) E66.3 Active 270272944 Problem Hospital discharge follow-up Z09 Active 130991294 Problem Osteopenia of spine M85.88 Active 050546501 Problem Former smoker Z87.891 Active 5310360 Problem GERD (gastroesophageal reflux disease) K21.9 Active 396346701 Problem Angina at rest I20.8 Active 18147682 Problem Hypothyroid E03.9 Active 10868014 Problem Constipation K59.00 Active 03741995 Problem COPD (chronic obstructive pulmonary disease) J44.9 Active 96656247 Problem Peptic ulcer K27.9 Active 77288433 ALLERGIES No Information ENCOUNTERS Encounter Location Date Diagnosis [facility] [id number] [address] Jul, [facility] [address] [facility] [id number] [address] Jun, [facility] [address] [address] 49[address] Jun, [facility] [id number] [place] [address] 30066- 7887 Jun, [facility] [id number] [place] [address] 86451- 8895 May, [facility] [id number] [place] [address] 24971- 3860 Apr, [facility] [id number] [place] [address] 05824- 9481 Apr, Type 2 diabetes mellitus without complication, [...] circle coronary artery 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 [facility] [id number] [place] [address] 19396- 9304 March, Hypothyroid E03.9 [facility] [id number] [place] [address] 35579- 7224 March, Hypercholesterolemia E78.00 [facility] [id number] [place] [address] 99457- 0261 March, Hypothyroid E03.9 [facility] [address] [place] [address] 25858- 0232 March, Hypercholesterolemia E78.00 [facility] [id number] [place] [address] 86549- 9788 Feb, Hypercholesterolemia E78.00 [facility] [address] [place] [address] 35843- 2316 Feb, Type 2 diabetes mellitus without complication, without long- term current use of insulin E11.9 [facility] [address] [address] 4962 Feb, Hypothyroid E03.9 [facility] [address] [place] [address] 62364- 1397 Jan, Hypothyroid E03.9 ; 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 ; Hospital discharge follow-up Z09 ; Type 2 diabetes mellitus without complication, without long-term current use of insulin E11.9 ; 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 and History of CVA (cerebrovascular accident) Z86.73 [facility] [id number] [place] [address] 97226- 5529 Jan, [facility] [id number] [place] [address] 78244- 9735 Jan, [facility] [id number] [place] [address] 88656- 4673 Jan, Type 2 diabetes mellitus without complication, without long- term current use of insulin E11.9 [facility] [address] [address] 6357 Dec, Hospital discharge follow-up Z09 ; COPD (chronic obstructive pulmonary disease) J44.9 ; Type 2 diabetes mellitus without complication, without long-term current use of insulin E11.9 ; Hypothyroid E03.9 and Vaginal discharge N89.8 [facility] [address] [address] 1606 Dec, Hypothyroid E03.9 [facility] [address] [address] 4628 Dec, Type 2 diabetes mellitus without complication, without long- term current use of insulin E11.9 [facility] [address] [address] Nov, [facility] [address] [address] 6728 Nov, [facility] [address] [address] 7503 Nov, Pneumonia of right lower lobe due to infectious organism J18.1 ; Orthopnea R06.01 ; COPD with acute exacerbation J44.1 and Fatigue, unspecified type R53.83 [facility] [address] [address] 9587 Nov, [facility] [address] [address]- 7383 Nov, [facility] [address] [address] 5884 Oct, Pneumonia of right lower lobe due to infectious organism J18.1 [facility] [address] [address] 2610 Oct, Pneumonia of right lower lobe due to infectious organism J18.1 [facility] [address] [address]- 6678 Oct, Pneumonia of right lower lobe due to infectious organism J18.1 [facility] [address] [address] 8720 Oct, COPD exacerbation J44.1 [facility] [address] [address]- 7450 Oct, [facility] [address] [address]- 4074 Oct, COPD exacerbation J44.1 [facility] [address] [address] 9497 Oct, Encounter for immunization Z23 and COPD (chronic obstructive pulmonary disease) J44.9 [facility] [id number] [address] 06 Oct, 2017 Medicare annual wellness visit, subsequent Z00.00 ; History of tobacco use Z87.891 ; Need for Zostavax administration Z23 ; Post-menopausal Z78.0 ; Screening for breast cancer Z12.31 ; Screening for colon cancer Z12.11 ; 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 and Encounter for immunization Z23 [address] [facility] [id number] [place] [address] 86591- 1352 Sep, Type 2 diabetes mellitus without complication, without long- term current use of insulin E11.9 [facility] [id number] [place] [address] 32095- 2468 Sep, Type 2 diabetes mellitus without complication, [...] lesion type I25.118 and 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 [facility] [facility] [id number] [place] [address] 36530- 0865 Aug, Type 2 diabetes mellitus without complication, without long- term current use of insulin E11.9 [facility] [id number] [place] [address] 84295- 9340 Aug, Hypothyroid E03.9 [facility] [id number] [place] [address] 05673- 6412 Aug, Type 2 diabetes mellitus without complication, [...] type I25.118 and Encounter for immunization Z23 [facility] [facility] [id number] [place] [address] 92012- 6577 Jul, Hypothyroid E03.9 and Hypercholesterolemia E78.00 [facility] [address] 31884- 8438 Jul, Hypothyroid E03.9 ; Diabetes mellitus E11.9 and Hypercholesterolemia E78.0 [facility] [id number] [place] [address] 79672- 7540 Jul, Hypothyroid E03.9 ; Diabetes mellitus E11.9 and Hypercholesterolemia E78.0 [facility] [id number] [place] [address] 97898- 0534 May, CVA (cerebral vascular accident) I63.9 and Dizziness R42 [facility] [facility] [address] 59992- 3549 May, Dehydration E86.0 ; CVA (cerebral vascular accident) I63.9 ; COPD (chronic obstructive pulmonary disease) J44.9 and Dizziness R42 [facility] [facility] [id number] [place] [address] 50663- 3827 March, Diabetes mellitus E11.9 ; Angina at rest I20.8 ; COPD ( chronic obstructive pulmonary disease) J44.9 ; GERD (gastroesophageal reflux disease) K21.9 ; Hypercholesterolemia E78.00 ; CVA (cerebral vascular accident) I63.9 and Hypothyroid E03.9 [address] [facility] [id number] [place] [address] 02780- 9159 Jan, Hypothyroid E03.9 and Diabetes mellitus E11.9 [facility] [id number] [place] [address] 68393- 3129 Jan, [facility] [facility] [id number] [place] [address] 18298- 9613 Jan, Diabetes mellitus E11.9 [facility] [id number] [place] [address] 19152- 0645 Jan, [facility] [id number] [place] [address] 01939- 3123 Dec, Diabetes mellitus E11.9 ; CVA (cerebral vascular accident) I63.9 ; COPD (chronic obstructive pulmonary disease) J44.9 ; Hypothyroid E03.9 ; GERD (gastroesophageal reflux disease) K21.9 and Hypercholesterolemia E78.00 [facility] [id number] [place] [address] 99847- 6895 Nov, Diabetes mellitus E11.9 [facility] [id number] [place] [address] 22830- 0066 Nov, [facility] [id number] [place] [address] 09424- 0365 Nov, [facility] [address] 98957- 8526 Nov, [facility] [id number] [place] [address] 34235- 9945 Nov, Diabetes mellitus E11.9 [facility] [id number] [place] [address] 84152- 9927 Oct, Hypothyroid E03.9 [facility] [address] 31263- 2265 Oct, Diabetes mellitus E11.9 [facility] [id number] [place] [address] 18687- 4443 Oct, COPD (chronic obstructive pulmonary disease) J44.9 [facility] [id number] [place] [address] 68678- 3648 Oct, [facility] [id number] [place] [address] 27079- 7429 Sep, Diabetes mellitus E11.9 ; Angina at rest I20.8 ; Hypercholesterolemia E78.0 ; COPD (chronic obstructive pulmonary disease) J44.9 ; GERD (gastroesophageal reflux disease) K21.9 ; Dysuria R30.0 ; Acquired hypothyroidism E03.9 ; Encounter for immunization Z23 and Acute cystitis without hematuria N30.00 [facility] [id number] [place] [address] 86532- 5027 Sep, Diabetes mellitus E11.9 [facility] [id number] [place] [address] 75399 -0401 Aug, [facility] [address] [address]- 8791 Aug, Diabetes mellitus E11.9 [place] [id number] [place] [address] 06663- 5350 Jun, Angina at rest I20.8 ; CVA (cerebral vascular accident) I63.9 ; Diabetes mellitus E11.9 ; Hypercholesterolemia E78.0 ; COPD (chronic obstructive pulmonary disease) J44.9 ; GERD (gastroesophageal reflux disease) K21.9 ; Peptic ulcer K27.9 and Hypothyroid E03.9 [address] [place] [address] [place] [address] 83925- 8429 Jun, [address] [facility] [id number] [place] [address] 13419- 8251 May, Diabetes mellitus E11.9 ; CVA (cerebral vascular accident) I63.9 ; COPD (chronic obstructive pulmonary disease) J44.9 and Angina at rest I20.8 [facility] [facility] [address] [address]- 9491 May, [facility] [facility] [id number] [place] [address] 89467- 6568 May, Diabetes mellitus E11.9 ; Hypothyroid E03.9 ; Angina at rest I20.8 ; CVA (cerebral vascular accident) I63.9 ; COPD (chronic obstructive pulmonary disease) J44.9 ; GERD (gastroesophageal reflux disease) K21.9 and Hypercholesterolemia E78.0 [facility] [facility] [address] [address]- 6583 Apr, Hypercholesterolemia E78.0 [facility] [address] [address]- 1060 Apr, [facility] [facility] [id number] [place] [address] 93407- 5046 March, Diabetes mellitus E11.9 ; Hypothyroid E03.9 ; Hypercholesterolemia E78.0 ; COPD (chronic obstructive pulmonary disease) J44.9 ; GERD (gastroesophageal reflux disease) K21.9 ; Constipation K59.00 ; CVA ( cerebral vascular accident) I63.9 and Angina at rest I20.8 [facility] [facility] [id number] [place] [address] 09744- 7783 March, [facility] [facility] [id number] [place] [address] 67477- 5489 Feb, [address] [facility] [id number] [place] [address] 73561- 7490 Feb, [facility] [facility] [id number] [place] [address] 89874- 7821 Feb, [facility] [facility] [id number] [place] [address] 85584- 1506 Jan, Diabetes mellitus E11.9 ; Hypercholesterolemia E78.0 ; CVA ( cerebral vascular accident) I63.9 ; GERD (gastroesophageal reflux disease) K21.9 ; Hypothyroid E03.9 and Angina at rest I20.8 [address] [address] [place] [address] 60159- 0372 Dec, Diabetes mellitus E11.9 ; Hypothyroid E03.9 ; Angina at rest I20.8 ; CVA (cerebral vascular accident) I63.9 ; Hypercholesterolemia E78.0 ; COPD (chronic obstructive pulmonary disease) J44.9 ; GERD ( gastroesophageal reflux disease) K21.9 and Dysuria R30.0 [facility] [address] [place] [address] 31708- 5286 Nov, [facility] [facility] [id number] [place] [address] 41993- 8932 Nov, Hypothyroid E03.9 [facility] [id number] [place] [address] 38236- 0605 Nov, Hypothyroid E03.9 ; Angina at rest I20.8 ; CVA (cerebral vascular accident) I63.9 ; Hypercholesterolemia E78.0 ; COPD (chronic obstructive pulmonary disease) J44.9 ; GERD (gastroesophageal reflux disease) K21.9 and Diabetes E11.9 [facility] [address] [address]50 Oct, Upper respiratory symptom R09.89 [facility] [id number] [place] [address] 89859- 4825 Oct, [facility] [id number] [place] [address] 43463- 9045 Oct, [facility] [id number] [place] [address] 50457- 2179 Oct, [facility] [id number] [place] [address] 83719- 7167 Aug, Diabetes mellitus 250.00 ; Encounter for immunization Z23 ; Hypothyroid E03.9 ; Angina at rest I20.8 ; CVA (cerebral vascular accident) I63.9 ; Hypercholesterolemia E78.0 ; COPD (chronic obstructive pulmonary disease ) J44.9 and GERD (gastroesophageal reflux disease) K21.9 [facility] [id number] [place] [address] 04078- 4840 Jul, [facility] [address] 16398- 5197 Jun, [facility] [id number] [place] [address] 61467- 6301 Jun, [facility] [facility] [id number] [place] [address] 27104- 5565 May, [facility] [id number] [place] [address] 57596- 8056 May, Diabetes mellitus 250.00 ; Hypothyroidism 244.9 ; Angina at rest 413.9 ; CVA (cerebral infarction) 434.91 ; Hypercholesterolemia 272.0 ; COPD (chronic obstructive pulmonary disease) 496 and GERD (gastroesophageal reflux disease) 530.81 [facility] [id number] [place] [address] 59362- 1753 Oct, [facility] [address] 22043- 4249 Oct, [facility] [address] [address]- 7987 Oct, [facility] [address] [address]- 3673 Oct, [facility] [address] [address]- 6177 Sep, [facility] [address] [place] [address] 518047- 5287 Aug, [facility] [address] [place] [address] 51358- 1734 Aug, [facility] [address] [place] [address] 29821- 2598 Aug, [facility] [address] [place] [address] 12795- 5240 Jul, [facility] [address] [address]- 4011 Jan, [facility] [id number] [place] [address] 58475- 5275 Oct, [facility] [address] [address]- 0125 Oct, [facility] [address] [address]- 0137 Sep, [facility] [address] [address]- 3269 Apr, [facility] [address] [address]- 4317 Dec, IMMUNIZATIONS No Known Immunizations SOCIAL HISTORY Never Assessed REASON FOR VISIT Refill request PLAN OF CARE VITAL SIGNS MEDICATIONS Medication Instructions Dosage Frequency Start Date End Date Duration Status Atorvastatin Calcium 40 mg Orally Once a day at HS 1 tablet 90 days Active RESULTS No Results PROCEDURES [...] lobe Pneumonia 02/24/16 Hospitalization History Chest Pain--[facility] 05/19/16 Hospitalization History Chest pain--[facility] 06/18/16 Hospitalization History Influenza & COPD exacerbation 12/21 Hospitalization History Cardiac Monitoring 01/2018 Hospitalization History Via [facility], tripped and hit head 04/2018
--- OUTSIDE RECORDS SUMMARY | 2018-07-19 13:01 | XMS REPORT ---
Author Author MARIA MACKEY Organization 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 Active [id number] Problem 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 Active 2412821172676 Problem History of CVA (cerebrovascular accident) Z86.73 Active 370520640 Problem Overweight (BMI 25.0-29.9) E66.3 Active 479534021 Problem Hospital discharge follow-up Z09 Active 113318031 Problem Osteopenia of spine M85.88 Active 929818810 Problem Former smoker Z87.891 Active 3729631 Problem GERD (gastroesophageal reflux disease) K21.9 Active 140492542 Problem Angina at rest I20.8 Active 46071033 Problem Hypothyroid E03.9 Active 88282613 Problem Constipation K59.00 Active 51997100 Problem COPD (chronic obstructive pulmonary disease) J44.9 Active 97417668 Problem Peptic ulcer K27.9 Active 90828062 ALLERGIES No Information ENCOUNTERS Encounter Location Date Diagnosis [facility] [id number] [address] Jul, [facility] [address] [facility] [id number] [address] Jun, [facility] [address] [address] Jun, [facility] [id number] [place] [address] 85023- 2501 Jun, [facility] [id number] [place] [address] 24013- 5063 May, [facility] [id number] [place] [address] 76866- 5177 Apr, 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 [id number] [place] [address] 38497- 9843 March, Hypercholesterolemia E78.00 [facility] [id number] [place] [address] 54703- 1808 March, Hypothyroid E03.9 [facility] [address] [place] [address] 64328- 3064 March, Hyper[address]olesterolemia E78.00 [facility] [id number] [place] [address] 34479- 8273 Feb, Hyper[address]mia E78.00 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 ; Hospital discharge follow-up Z09 ; Type 2 diabetes mellitus without complication, without long-term current use of insulin E11.9 ; 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 and History of CVA (cerebrovascular accident) Z86.73 [facility] [id number] [place] [address] 99437- 7292 Jan, [facility] [id number] [place] [address] 45840- 3254 Jan, [facility] [id number] [place] [address] 62852- 5756 Jan, Type 2 diabetes mellitus without complication, without long- term current use of insulin E11.9 [facility] [facility] [address] [address] 0910 Dec, Hospital discharge follow-up Z09 ; COPD (chronic obstructive pulmonary disease) J44.9 ; Type 2 diabetes mellitus without complication, without long-term current use of insulin E11.9 ; Hypothyroid E03.9 and Vaginal discharge N89.8 [place] [address] [address] 2257 Dec, Hypothyroid E03.9 [facility] [facility] [address] [address]- 6936 Dec, Type 2 diabetes mellitus without complication, without long- term current use of insulin E11.9 [address] [address] [address] 5540 Nov, [facility] [address] [address] 5513 Nov, [facility] [facility] [address] [address] 7133 Nov, Pneumonia of right lower lobe due to infectious organism J18.1 ; Orthopnea R06.01 ; COPD with acute exacerbation J44.1 and Fatigue, unspecified type R53.83 [facility] [facility] [address] [address] 0350 Nov, [facility] [address] [address] 1500 Nov, [facility] [facility] [address] [address]- 9997 Oct, Pneumonia of right lower lobe due to infectious organism J18.1 [facility] [facility] [address] [address]- 3479 Oct, Pneumonia of right lower lobe due to infectious organism J18.1 [facility] [address] [address]- 4722 Oct, Pneumonia of right lower lobe due to infectious organism J18.1 [facility] [facility] [address] [address]- 4338 Oct, COPD exacerbation J44.1 [facility] [facility] [address] [address]- 0765 Oct, [facility] [facility] [address] [address]- 0767 Oct, COPD exacerbation J44.1 [facility] [facility] [address] [address]- 8828 Oct, Encounter for immunization Z23 and COPD (chronic obstructive pulmonary disease) J44.9 [facility] [id number] [address] 06 Oct, 2017 Medicare annual wellness visit, subsequent Z00.00 ; History of tobacco use Z87.891 ; Need for Zostavax administration Z23 ; Post-menopausal Z78.0 ; Screening for breast cancer Z12.31 ; Screening for colon cancer Z12.11 ; 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 and Encounter for immunization Z23 [address] [facility] [id number] [place] [address] 98816- 3298 Sep, Type 2 diabetes mellitus without complication, without long- term current use of insulin E11.9 [facility] [id number] [place] [address] 89500- 9147 Sep, Type 2 diabetes mellitus without complication, without long- term current use of insulin E11.9 ; COPD (chronic obstructive pulmonary disease ) J44.9 ; Hypothyroid E03.9 ; GERD (gastroesophageal reflux disease) K21.9 ; CVA (cerebral vascular accident) I63.9 ; Hyperlipidemia LDL goal <100 E78.5 ; Coronary artery disease of [place] heart with stable angina pectoris, unspecified vessel or lesion type I25.118 and 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 [facility] [facility] [id number] [place] [address] 29658- 4920 Aug, Type 2 diabetes mellitus without complication, without long- term current use of insulin E11.9 [facility] [id number] [place] [address] 11759- 6976 Aug, Hypothyroid E03.9 [facility] [id number] [place] [address] 67123- 8311 Aug, Type 2 diabetes mellitus without complication, without long- term current use of insulin E11.9 ; COPD (chronic obstructive pulmonary disease ) J44.9 ; Hypothyroid E03.9 ; GERD (gastroesophageal reflux disease) K21.9 ; CVA (cerebral vascular accident) I63.9 ; Hyperlipidemia LDL goal <100 E78.5 ; Coronary artery disease of [place] heart with stable angina pectoris, unspecified vessel or lesion type I25.118 and Encounter for immunization Z23 [place] [id number] [place] [address] 06039- 9802 Jul, Hypothyroid E03.9 and Hypercholesterolemia E78.00 [facility] [address] 23596- 6329 Jul, Hypothyroid E03.9 ; Diabetes mellitus E11.9 and Hypercholesterolemia E78.0 [facility] [facility] [id number] [place] [address] 25719- 7921 Jul, Hypothyroid E03.9 ; Diabetes mellitus E11.9 and Hypercholesterolemia E78.0 [facility] [id number] [place] [address] 43533- 9317 May, CVA (cerebral vascular accident) I63.9 and Dizziness R42 [address] [address] 74386- 9308 May, Dehydration E86.0 ; CVA (cerebral vascular accident) I63.9 ; COPD (chronic obstructive pulmonary disease) J44.9 and Dizziness R42 [place] [id number] [place] [address] 54989- 2372 March, Diabetes mellitus E11.9 ; Angina at rest I20.8 ; COPD ( chronic obstructive pulmonary disease) J44.9 ; GERD (gastroesophageal reflux disease) K21.9 ; Hypercholesterolemia E78.00 ; CVA (cerebral vascular accident) I63.9 and Hypothyroid E03.9 [place] [facility] [id number] [place] [address] 69963- 9120 Jan, Hypothyroid E03.9 and Diabetes mellitus E11.9 [place] [facility] [id number] [place] [address] 37108- 2262 Jan, [facility] [facility] [id number] [place] [address] 88667- 2483 Jan, Diabetes mellitus E11.9 [place] [facility] [id number] [place] [address] 47187- 8198 Jan, [place] [facility] [id number] [place] [address] 65121- 8278 Dec, Diabetes mellitus E11.9 ; CVA (cerebral vascular accident) I63.9 ; COPD (chronic obstructive pulmonary disease) J44.9 ; Hypothyroid E03.9 ; GERD (gastroesophageal reflux disease) K21.[address] [facility] [id number] [place] [address] 25502- 7470 Nov, Diabetes mellitus E11.9 [facility] [id number] [place] [address] 21066- 3977 Nov, [facility] [id number] [place] [address] 31586- 3014 Nov, [facility] [address] 86631- 7363 Nov, [facility] [id number] [place] [address] 94676- 9758 Nov, Diabetes mellitus E11.9 [facility] [id number] [place] [address] 67815- 3459 Oct, Hyp[address]roid E03.9 [facility] [address] 83861- 6636 Oct, Diabetes mellitus E11.9 [facility] [id number] [place] [address] 79279- 4754 Oct, COPD (chronic obstructive pulmonary disease) J44.9 [facility] [id number] [place] [address] 55277- 5653 Oct, [facility] [id number] [place] [address] 88175- 1951 Sep, Diabetes mellitus E11.9 ; Angina at rest I20.8 ; Hypercholesterolemia E78.0 ; COPD (chronic obstructive pulmonary disease) J44.9 ; GERD (gastroesophageal reflux disease) K21.9 ; Dysuria R30.0 ; Acquired hypothyroidism E03.9 ; Encounter for immunization Z23 and Acute cystitis without hematuria N30.00 [facility] [id number] [place] [address] 62640- 7788 Sep, Diabetes mellitus E11.9 [facility] [id number] [place] [address] 06240 -8930 Aug, [address] [address] [address]- 8064 Aug, Diabetes mellitus E11.9 [place] [id number] [place] [address] 86325- 9569 Jun, Angina at rest I20.8 ; CVA (cerebral vascular accident) I63.9 ; Diabetes mellitus E11.9 ; Hypercholesterolemia E78.0 ; COPD (chronic obstructive pulmonary disease) J44.9 ; GERD (gastroesophageal reflux disease) K21.9 ; Peptic ulcer K27.9 and Hypothyroid E03.9 [place] [address] [place] [address] 58163- 5649 Jun, [place] [facility] [id number] [place] [address] 14578- 7074 May, Diabetes mellitus E11.9 ; CVA (cerebral vascular accident) I63.9 ; COPD (chronic obstructive pulmonary disease) J44.9 and Angina at rest I20.8 [facility] [address] [address]- 3496 May, [place] [facility] [id number] [place] [address] 91561- 7363 May, Diabetes mellitus E11.9 ; Hypothyroid E03.9 ; Angina at rest I20.8 ; CVA (cerebral vascular accident) I63.9 ; COPD (chronic obstructive pulmonary disease) J44.9 ; GERD (gastroesophageal reflux disease) K21.9 and Hypercholesterolemia E78.0 [facility] [address] [address]- 2969 Apr, Hypercholesterolemia E78.0 [facility] [facility] [address] [address]- 1752 Apr, [place] [id number] [place] [address] 02907- 0836 March, Diabetes mellitus E11.9 ; Hypothyroid E03.9 ; Hypercholesterolemia E78.0 ; COPD (chronic obstructive pulmonary disease) J44.9 ; GERD (gastroesophageal reflux disease) K21.9 ; Constipation K59.00 ; CVA ( cerebral vascular accident) I63.9 and Angina at rest I20.8 [place] [id number] [place] [address] 83161- 1802 March, [place] [id number] [place] [address] 78005- 3248 Feb, [place] [id number] [place] [address] 29970- 9211 Feb, [place] [id number] [place] [address] 29529- 3028 Feb, [place] [id number] [place] [address] 23284- 2670 Jan, Diabetes mellitus E11.9 ; Hypercholesterolemia E78.0 ; CVA ( cerebral vascular accident) I63.9 ; GERD (gastroesophageal reflux disease) K21.9 ; Hypothyroid E03.9 and Angina at rest I20.8 [place] [address] [place] [address] 13276- 7300 Dec, Diabetes mellitus E11.9 ; Hypothyroid E03.9 ; Angina at rest I20.8 ; CVA (cerebral vascular accident) I63.9 ; Hypercholesterolemia E78.0 ; COPD (chronic obstructive pulmonary disease) J44.9 ; GERD ( gastroesophageal reflux disease) K21.9 and Dysuria R30.0 [place] [address] [place] [address] 46976- 1683 Nov, [place] [address] [place] [address] 61879- 7630 Nov, Hypothyroid E03.9 [place] [id number] [place] [address] 19806- 3390 Nov, Hypothyroid E03.9 ; Angina at rest I20.8 ; CVA (cerebral vascular accident) I63.9 ; Hypercholesterolemia E78.0 ; COPD (chronic obstructive pulmonary disease) J44.9 ; GERD (gastroesophageal reflux disease) K21.9 and Diabetes E11.9 [facility] [address] [address] -1584 Oct, Upper respiratory symptom R09.89 [facility] [id number] [place] [address] 36629- 2549 Oct, [facility] [id number] [place] [address] 36020- 5723 Oct, [facility] [id number] [place] [address] 19854- 0254 Oct, [facility] [id number] [place] [address] 82102- 5034 Aug, Diabetes mellitus 250.00 ; Encounter for immunization Z23 ; Hypothyroid E03.9 ; Angina at rest I20.8 ; CVA (cerebral vascular accident) I63.9 ; Hypercholesterolemia E78.0 ; COPD (chronic obstructive pulmonary disease ) J44.9 and GERD (gastroesophageal reflux disease) K21.9 [facility] [id number] [place] [address] 37830- 9227 Jul, [facility] [address] 70141- 4160 Jun, [facility] [id number] [place] [address] 84504- 0404 Jun, [place] [id number] [place] [address] 08133- 8767 May, [facility] [id number] [place] [address] 28783- 9246 May, Diabetes mellitus 250.00 ; Hypothyroidism 244.9 ; Angina at rest 413.9 ; CVA (cerebral infarction) 434.91 ; Hypercholesterolemia 272.0 ; COPD (chronic obstructive pulmonary disease) 496 and GERD (gastroesophageal reflux disease) 530.81 [facility] [id number] [place] [address] 87147- 5141 Oct, [facility] [address] 02434- 0636 Oct, [facility] [address] [address]- 0926 Oct, [facility] [address] [address]- 3246 Oct, [facility] [address] [address]- 7666 Sep, [facility] [address] [place] [address] 31089- 3577 Aug, [facility] [id number] [place] [address] 22082- 8116 Aug, [facility] [id number] [place] [address] 56708- 2396 Aug, [facility] [id number] [place] [address] 18599- 9172 Jul, [facility] [address] [address]- 9032 Jan, [facility] [id number] [place] [address] 66519- 9960 Oct, [facility] [address] [address]- 3036 Oct, [facility] [address] [address]- 0596 Sep, [facility] [address] [address]- 4126 Apr, [facility] [address] [address]- 5181 Dec, IMMUNIZATIONS No Known Immunizations SOCIAL HISTORY Never Assessed REASON FOR VISIT med PLAN OF CARE VITAL SIGNS MEDICATIONS Medication Instructions Dosage Frequency Start Date End Date Duration Status Levothyroxine Sodium 88 MCG Orally Once a day 1 tablet on an empty stomach in the morning 24h March, 90 days Active RESULTS No Results PROCEDURES [...] lobe Pneumonia 02/24/16 Hospitalization History Chest Pain--[facility] 05/19/16 Hospitalization History Chest pain--[facility] 06/18/16 Hospitalization History Influenza & COPD exacerbation 12/21 Hospitalization History Cardiac Monitoring 01/2018 Hospitalization History Via [facility], tripped and hit head 04/2018
--- OUTSIDE RECORDS SUMMARY | 2018-07-19 13:02 | XMS REPORT ---
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 Name Role Phone MARIA MACKEY Unavailable PROBLEMS Type Condition ICD9-CM Code AZG08-BF Code Onset Dates Condition Status SNOMED Code Problem Angina at rest I20.8 Active 91492654 Problem Peptic ulcer K27.9 Active 97183003 Problem Constipation K59.00 Active 74094177 Problem Hospital discharge follow-up Z09 Active 737904829 Problem History of CVA (cerebrovascular accident) Z86.73 Active 193798855 Problem Type 2 diabetes mellitus without complication, without long-term current use of insulin E11.9 Active 818394545 Problem Hyperlipidemia LDL goal <100 E78.5 Active 63163046 Problem 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 Active 2306326773677 Problem 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 Active 779216306558 Problem Former smoker Z87.891 Active 4317888 Problem Hypothyroid E03.9 Active 01233352 Problem COPD (chronic obstructive pulmonary disease) J44.9 Active 37175527 Problem Osteopenia of spine M85.88 Active 854403979 Problem GERD (gastroesophageal reflux disease) K21.9 Active 616710998 ALLERGIES Substance Reaction Event Type Date Status Ultram hives Drug Allergy Oct, Active Fentanyl hives Drug Allergy Oct, Active ENCOUNTERS Encounter Location Date Diagnosis [facility], [place] [address] [facility] [id number] [address] Apr, [facility], [place] [address] [address] March, Hypothyroid E03.9 [facility], [place] [id number] [address] March, Hypercholesterolemia E78.00 [facility], [place] [address] [place] [address] 61288- 9169 March, Hypothyroid E03.9 [place] [id number] [place] [address] 40390- 9951 March, Hypercholesterolemia E78.00 [place] [id number] [place] [address] 56281- 6774 Feb, Hypercholesterolemia E78.00 [place] [id number] [place] [address] 95999- 7733 Feb, Type 2 diabetes mellitus without complication, without long- term current use of insulin E11.9 [place] [id number] [place] [address] 25374- 3779 Feb, Hypothyroid E03.9 [place] [id number] [place] [address] 30271- 7422 Jan, Hypothyroid E03.9 ; 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 ; Hospital discharge follow-up Z09 ; Type 2 diabetes mellitus without complication, without long-term current use of insulin E11.9 ; 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 and History of CVA (cerebrovascular accident) Z86.73 [place] [address] [place] [address] 28497- 4162 Jan, [place] [address] [address] 5[address] Jan, [place] [address] [place] [address] 96089- 8400 Jan, Type 2 diabetes mellitus without complication, without long- term current use of insulin E11.9 [place] [id number] [place] [address] 92062- 2515 Dec, Hospital discharge follow-up Z09 ; COPD (chronic obstructive pulmonary disease) J44.9 ; Type 2 diabetes mellitus without complication, without long-term current use of insulin E11.9 ; Hypothyroid E03.9 and Vaginal discharge N89.8 [place] [address] [address] 07[address] Dec, Hypothyroid E03.9 [facility], [place] [id number] [place] [address] 05273- 4048 Dec, Type 2 diabetes mellitus without complication, without long- term current use of insulin E11.9 [facility], [place] [address] [address] 0482 Nov, [facility], [place] [id number] [place] [address] 37424- 2266 Nov, [facility], [place] [address] [place] [address] 93738- 9738 Nov, Pneumonia of right lower lobe due to infectious organism J18.1 ; Orthopnea R06.01 ; COPD with acute exacerbation J44.1 and Fatigue, unspecified type R53.83 [place] [id number] [place] [address] 81540- 1810 Nov, [place] [address] [address] 3354 Nov, [facility], [place] [id number] [place] [address] 67838- 6915 Oct, Pneumonia of right lower lobe due to infectious organism J18.1 [place] [address] [address] 1794 Oct, Pneumonia of right lower lobe due to infectious organism J18.1 [facility], [place] [address] [address] 0690 Oct, Pneumonia of right lower lobe due to infectious organism J18.1 [facility], [place] [address] [address] 2997 Oct, COPD exacerbation J44.1 [facility], [place] [address] [address] 0848 Oct, [facility], [place] [id number] [place] [address] 52398- 9002 20 Oct, 2017 COPD exacerbation J44.1 [place] [address] [address]81- 3137 11 Oct, 2017 Encounter for immunization Z23 and COPD (chronic obstructive pulmonary disease) J44.9 [place] [address] 39611- 8062 Oct, Medicare annual wellness visit, subsequent Z00.00 ; History of tobacco use Z87.891 ; Need for Zostavax administration Z23 ; Post-menopausal Z78.0 ; Screening for breast cancer Z12.31 ; Screening for colon cancer Z12.11 ; 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 and Encounter for immunization Z23 [place] [address] 34985- 2987 Sep, Type 2 diabetes mellitus without complication, without long- term current use of insulin E11.[address] [address]- 5881 Sep, Type 2 diabetes mellitus without complication, without long- term current use of insulin E11.9 ; COPD (chronic obstructive pulmonary disease ) J44.9 ; Hypothyroid E03.9 ; GERD (gastroesophageal reflux disease) K21.9 ; CVA (cerebral vascular accident) I63.9 ; Hyperlipidemia LDL goal <100 E78.5 ; Coronary artery disease of [place] heart with stable angina pectoris, unspecified vessel or lesion type I25.118 and 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 [place] [id number] [place] [address] 25597- 0716 Aug, Type 2 diabetes mellitus without complication, without long- term current use of insulin E11.9 [place] [address] 17725- 6431 Aug, Hypothyroid E03.9 [place] [id number] [place] [address] 09867- 5542 Aug, Type 2 diabetes mellitus without complication, without long- term current use of insulin E11.9 ; COPD (chronic obstructive pulmonary disease ) J44.9 ; Hypothyroid E03.9 ; GERD (gastroesophageal reflux disease) K21.9 ; CVA (cerebral vascular accident) I63.9 ; Hyperlipidemia LDL goal <100 E78.5 ; Coronary artery disease of [place] heart with stable angina pectoris, unspecified vessel or lesion type I25.118 and Encounter for immunization Z23 [place] [address] 93399- 1094 Jul, Hypothyroid E03.9 and Hypercholesterolemia E78.00 [place] [address] 58426- 5351 Jul, Hypothyroid E03.9 ; Diabetes mellitus E11.9 and Hypercholesterolemia E78.0 [place] [address] 04465- 1689 Jul, Hypothyroid E03.9 ; Diabetes mellitus E11.9 and Hypercholesterolemia E78.0 [place] [address] [address]- 1983 May, CVA (cerebral vascular accident) I63.9 and Dizziness R42 [address] [address]41- 1287 May, Dehydration E86.0 ; CVA (cerebral vascular accident) I63.9 ; COPD (chronic obstructive pulmonary disease) J44.9 and Dizziness R42 [place] [address] 43942- 0495 March, Diabetes mellitus E11.9 ; Angina at rest I20.8 ; COPD ( chronic obstructive pulmonary disease) J44.9 ; GERD (gastroesophageal reflux disease) K21.9 ; Hypercholesterolemia E78.00 ; CVA (cerebral vascular accident) I63.9 and Hypothyroid E03.9 [place] [address] 80353- 7906 Jan, Hypothyroid E03.9 and Diabetes mellitus E11.9 [place] [address] 80544- 7282 Jan, [facility], [place] [address] [address]- 4845 Jan, Diabetes mellitus E11.9 [facility], [place] [id number] [address] 2546 Jan, [facility], [place] [address] [address]- 6671 Dec, Diabetes mellitus E11.9 ; CVA (cerebral vascular accident) I63.9 ; COPD (chronic obstructive pulmonary disease) J44.9 ; Hypothyroid E03.9 ; GERD (gastroesophageal reflux disease) K21.9 and Hypercholesterolemia E78.00 [facility], [place] [id number] [place] [address] 48937- 8781 Nov, Diabetes mellitus E11.9 [facility], [place] [address] [address]- 7598 Nov, [facility], [place] [id number] [place] [address] 00368- 1945 Nov, [facility], [place] [address] [address]- 8330 Nov, [facility], [place] [address] [place] [address] 93990- 8665 Nov, Diabetes mellitus E11.9 [facility], [place] [address] [address]- 1922 Oct, Hypothyroid E03.9 [facility], [place] [address] [address] 2540 Oct, Diabetes mellitus E11.9 [facility], [place] [address] [address]- 4090 Oct, COPD (chronic obstructive pulmonary disease) J44.9 [facility], [place] [address] [address]- 2546 Oct, [facility], [place] [address] [address]- 4419 Sep, Diabetes mellitus E11.9 ; Angina at rest I20.8 ; Hypercholesterolemia E78.0 ; COPD (chronic obstructive pulmonary disease) J44.9 ; GERD (gastroesophageal reflux disease) K21.9 ; Dysuria R30.0 ; Acquired hypothyroidism E03.9 ; Encounter for immunization Z23 and Acute cystitis without hematuria N30.00 [facility], [place] [id number] [place] [address] 86211- 4818 Sep, Diabetes mellitus E11.9 [facility] [id number] [place] [address] 66349 -5226 Aug, [facility], [place] [id number] [place] [address] 05379- 4220 Aug, Diabetes mellitus E11.9 [facility], [place] [id number] [place] [address] 91316- 7677 Jun, Angina at rest I20.8 ; CVA (cerebral vascular accident) I63.9 ; Diabetes mellitus E11.9 ; Hypercholesterolemia E78.0 ; COPD (chronic obstructive pulmonary disease) J44.9 ; GERD (gastroesophageal reflux disease) K21.9 ; Peptic ulcer K27.9 and Hypothyroid E03.9 [facility], [place] [id number] [place] [address] 65394- 0545 Jun, [facility], [place] [id number] [place] [address] 26445- 5206 May, Diabetes mellitus E11.9 ; CVA (cerebral vascular accident) I63.9 ; COPD (chronic obstructive pulmonary disease) J44.9 and Angina at rest I20.8 [facility], [place] [id number] [place] [address] 39598- 2022 May, [place] [id number] [place] [address] 85866- 3316 May, Diabetes mellitus E11.9 ; Hypothyroid E03.9 ; Angina at rest I20.8 ; CVA (cerebral vascular accident) I63.9 ; COPD (chronic obstructive pulmonary disease) J44.9 ; GERD (gastroesophageal reflux disease) K21.9 and Hypercholesterolemia E78.0 [place] [id number] [place] [address] 68123- 4366 Apr, Hypercholesterolemia E78.0 [place] [id number] [place] [address] 79979- 8758 Apr, [place] [id number] [place] [address] 97085- 4460 March, Diabetes mellitus E11.9 ; Hypothyroid E03.9 ; Hypercholesterolemia E78.0 ; COPD (chronic obstructive pulmonary disease) J44.9 ; GERD (gastroesophageal reflux disease) K21.9 ; Constipation K59.00 ; CVA ( cerebral vascular accident) I63.9 and Angina at rest I20.8 [place] [id number] [place] [address] 40232- 7981 March, [place] [id number] [place] [address] 62470- 2662 Feb, [place] [id number] [place] [address] 54438- 5456 Feb, [place] [id number] [place] [address] 22038- 9304 Feb, [place] [id number] [place] [address] 09187- 7432 Jan, Diabetes mellitus E11.9 ; Hypercholesterolemia E78.0 ; CVA ( cerebral vascular accident) I63.9 ; GERD (gastroesophageal reflux disease) K21.9 ; Hypothyroid E03.9 and Angina at rest I20.8 [place] [id number] [place] [address] 57533- 6178 Dec, Diabetes mellitus E11.9 ; Hypothyroid E03.9 ; Angina at rest I20.8 ; CVA (cerebral vascular accident) I63.9 ; Hypercholesterolemia E78.0 ; COPD (chronic obstructive pulmonary disease) J44.9 ; GERD ( gastroesophageal reflux disease) K21.9 and Dysuria R30.0 [place] [address] [id number] [address]- 1042 Nov, [facility], [place] [id number] [place] [address] 65836- 9162 Nov, Hypothyroid E03.9 [facility], [place] [id number] [place] [address] 29774- 7490 Nov, Hypothyroid E03.9 ; Angina at rest I20.8 ; CVA (cerebral vascular accident) I63.9 ; Hypercholesterolemia E78.0 ; COPD (chronic obstructive pulmonary disease) J44.9 ; GERD (gastroesophageal reflux disease) K21.9 and Diabetes E11.9 [facility] [id number] [place] [address] 80478 -9711 Oct, Upper respiratory symptom R09.89 [facility], [place] [id number] [place] [address] 23490- 0326 Oct, [facility], [place] [id number] [place] [address] 52402- 2231 Oct, [facility], [place] [id number] [place] [address] 86112- 4331 Oct, [facility], [place] [id number] [place] [address] 19186- 6859 Aug, Diabetes mellitus 250.00 ; Encounter for immunization Z23 ; Hypothyroid E03.9 ; Angina at rest I20.8 ; CVA (cerebral vascular accident) I63.9 ; Hypercholesterolemia E78.0 ; COPD (chronic obstructive pulmonary disease ) J44.9 and GERD (gastroesophageal reflux disease) K21.9 [facility], [place] [address] [place] [address] 13545- 4345 Jul, [facility], [place] [id number] [place] [address] 70522- 6469 Jun, [facility], [place] [id number] [place] [address] 41858- 1932 Jun, [facility], [place] [id number] [place] [address] 82788- 5136 May, [facility], [place] [address] [address]- 1714 May, Diabetes mellitus 250.00 ; Hypothyroidism 244.9 ; Angina at rest 413.9 ; CVA (cerebral infarction) 434.91 ; Hypercholesterolemia 272.0 ; COPD (chronic obstructive pulmonary disease) 496 and GERD (gastroesophageal reflux disease) 530.81 [facility], [place] [id number] [place] [address] 99919- 1186 Oct, [facility], [place] [address] [address]- 1933 Oct, [facility], [place] [id number] [place] [address] 04558- 7466 Oct, [facility], [place] [id number] [place] [address] 93819- 5184 Oct, [facility], [place] [id number] [place] [address] 57017- 1483 Sep, [facility], [place] [address] 4485 Aug, [facility], [place] [address] [place] [address] 53325- 0328 Aug, [facility], [place] [address] [address]- 8206 Aug, [facility], [place] [address] [address]- 6726 Jul, [facility], [place] [address] [address]- 6236 Jan, [facility], [place] [id number] [address]- 7376 Oct, [facility], [place] [address] [address]- 2546 Oct, [facility], [place] [id number] [place] [address] 83511- 2546 Sep, [facility], [place] [address] [facility] [id number] [address]- 2546 Apr, [facility], [place] [address] [facility] [id number] [address]- 2546 Dec, IMMUNIZATIONS Vaccine Route Administration Date Status TDAP (BOOSTRIX) IM Intramuscular Oct 08, 2017 Administered SOCIAL HISTORY Never Assessed REASON FOR VISIT Medicare AWV-AHarryman PLAN OF CARE Activity Details Follow Up annually for preventive care, sooner for chronic health maintenance Reason: VITAL SIGNS Height 60 in 2017-10-08 Weight 162.0 lbs 2017-10-08 Temperature 98.1 degrees Fahrenheit 2017-10-08 Heart Rate 84 bpm 2017-10-08 Respiratory Rate 20 2017-10-08 BMI 31.64 kg/m2 2017-10-08 Blood pressure systolic 120 mmHg 2017-10-08 Blood pressure diastolic 66 mmHg 2017-10-08 MEDICATIONS Medication Instructions Dosage Frequency Start Date End Date Duration Status Protonix 40 mg Orally twice a day 1 tablet 12h Active Fenofibrate 160 MG Orally Once a day 1 tablet with a meal 24h Jan, Active Acetaminophen 500 MG Orally every 6 hrs 2 tablets 6h Active Clopidogrel Bisulfate 75 MG Orally Once a day 1 tablet 24h Active Farxiga 5 mg Orally Once a day 1 tablet 24h 7 Nov, 2017 30 day(s) Active Janumet 50-1000 mg Orally Twice a day 1 tablet with meals 12h Active Isosorbide Mononitrate ER 60 MG Orally Once a day 1 tablet 24h Active NitroMist 400 MCG/SPRAY Translingual Once a day 1 spray under the tongue 24h Active Atorvastatin Calcium 40 mg Orally Once a day at HS 1 tablet Active Lancets test one time per day as directed Active Ranexa 1000 MG Orally Twice a day 1 tablet 12h Active Levothyroxine Sodium 100 MCG Orally Once a day 1 tablet 24h 18 Nov, 2015 Active OneTouch Ultra Test - In Vitro 3 times a day USE ONE STRIP TO CHECK GLUCOSE ONCE DAILY DIRECTED 8h Active RESULTS Name Result Date Reference Range CT Scan : Chest, low dose (Screening) 2017-10-22 Mammogram, Bilateral Screening 2017-11-13 Bone Density 2017-11-13 PROCEDURES Procedure Date Ordered Result Body Site ANNUAL WELLNESS VST; PPS SUBSQT VST Oct 08, 2017 FALL RISK ASSESSMENT DOCD Oct 08, 2017 TDAP (BOOSTRIX) Oct 08, 2017 PT TOBACCO SCREEN RCVD TLK Oct 08, 2017 SINGLE IMMUNIZATION ADMIN Oct 08, 2017 INSTRUCTIONS MEDICATIONS ADMINISTERED No Known Medications [...] lobe Pneumonia 02/24/16 Hospitalization History Chest Pain--[facility] 05/19/16 Hospitalization History Chest pain--[facility] 06/18/16 Hospitalization History Influenza & COPD exacerbation 12/21 Hospitalization History Cardiac Monitoring 01/2018
--- OUTSIDE RECORDS SUMMARY | 2018-07-19 13:02 | XMS REPORT ---
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 Active [id number] Problem 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 Active 3565529966060 Problem History of CVA (cerebrovascular accident) Z86.73 Active 623951383 Problem Overweight (BMI 25.0-29.9) E66.3 Active 359608017 Problem Hospital discharge follow-up Z09 Active 083888130 Problem Osteopenia of spine M85.88 Active 073304946 Problem Former smoker Z87.891 Active 1992659 Problem GERD (gastroesophageal reflux disease) K21.9 Active 892207719 Problem Angina at rest I20.8 Active 29585337 Problem Hypothyroid E03.9 Active 08192684 Problem Constipation K59.00 Active 04966918 Problem COPD (chronic obstructive pulmonary disease) J44.9 Active 03990651 Problem Peptic ulcer K27.9 Active 78936209 ALLERGIES No Information ENCOUNTERS Encounter Location Date Diagnosis [facility] [id number] [address] Jul, [facility] [address] [facility] [id number] [address] Jun, [facility] [address], [place] [address] Jun, [facility] [id number] [place] [address] 16357- 7612 Jun, [facility] [id number] [place] [address] 75842- 4416 May, [facility] [id number] [place] [address] 17159- 3083 Apr, [facility] [id number] [place] [address] 92817- 9784 Apr, Type 2 diabetes mellitus without complication, without long- term current use of insulin E11.9 ; Hypothyroid E03.9 ; Hyperlipidemia LDL goal <100 E78.5 ; Overweight (BMI 25.0-29.9) E66.3 ; Vaginal candidiasis B37.3 ; COPD (chronic obstructive pulmonary disease) J44.9 ; CVA (cerebral vascular accident) I63.9 ; GERD (gastroesophageal reflux disease) K21.9 ; Angina at rest I20.8 and 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 [facility] [id number] [place] [address] 59266- 3021 March, Hypothyroid E03.9 [facility] [id number] [place] [address] 85386- 1406 March, Hypercholesterolemia E78.00 [facility] [id number] [place] [address] 14525- 1200 March, Hypothyroid E03.9 [facility] [id number] [place] [address] 48882- 9652 March, Hypercholesterolemia E78.00 [facility] [id number] [place] [address] 62824- 3610 Feb, Hypercholesterolemia E78.00 [facility] [id number] [place] [address] 55405- 9721 Feb, Type 2 diabetes mellitus without complication, without long- term current use of insulin E11.9 [facility] [address], [place] [address] 4545 Feb, Hypothyroid E03.9 [facility] [id number] [place] [address] 57001- 6287 Jan, Hypothyroid E03.9 ; 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 ; Hospital discharge follow-up Z09 ; Type 2 diabetes mellitus without complication, without long-term current use of insulin E11.9 ; 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 and History of CVA (cerebrovascular accident) Z86.73 [facility] [id number] [place] [address] 86412- 3190 Jan, [facility] [id number] [place] [address] 21781- 8514 Jan, [facility] [id number] [place] [address] 13058- 9599 Jan, Type 2 diabetes mellitus without complication, without long- term current use of insulin E11.9 [facility] [address], [place] [address] 8658 Dec, Hospital discharge follow-up Z09 ; COPD (chronic obstructive pulmonary disease) J44.9 ; Type 2 diabetes mellitus without complication, without long-term current use of insulin E11.9 ; Hypothyroid E03.9 and Vaginal discharge N89.8 [facility] [address], [place] [address] 0987 Dec, Hypothyroid E03.9 [facility] [address], [place] [address] 2458 Dec, Type 2 diabetes mellitus without complication, without long- term current use of insulin E11.9 [facility] [address], [place] [address] 2016 Nov, [facility] [address], [place] [address] 2432 Nov, [facility] [address], [place] [address] 0856 Nov, Pneumonia of right lower lobe due to infectious organism J18.1 ; Orthopnea R06.01 ; COPD with acute exacerbation J44.1 and Fatigue, unspecified type R53.83 [facility] [address], [place] [address] 20[address] Nov, [facility] [address], [place] [address] 4[address] Nov, [facility] [address], [place] [address] 2103 Oct, Pneumonia of right lower lobe due to infectious organism J18.1 [facility] [address], [place] [address] 3437 Oct, Pneumonia of right lower lobe due to infectious organism J18.1 [facility] [address], [place] [address]- 0497 Oct, Pneumonia of right lower lobe due to infectious organism J18.1 [facility] [address], [place] [address] 3179 Oct, COPD exacerbation J44.1 [facility] [address], [place] [address] 5551 Oct, [facility] [address], [place] [address] 8801 Oct, COPD exacerbation J44.1 [facility] [address], [place] [address] 5380 Oct, Encounter for immunization Z23 and COPD (chronic obstructive pulmonary disease) J44.9 [facility] [id number] [address] 06 Oct, 2017 Medicare annual wellness visit, subsequent Z00.00 ; History of tobacco use Z87.891 ; Need for Zostavax administration Z23 ; Post-menopausal Z78.0 ; Screening for breast cancer Z12.31 ; Screening for colon cancer Z12.11 ; 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 and Encounter for immunization Z23 [facility] [id number] [place] [address] 96590- 1727 Sep, Type 2 diabetes mellitus without complication, without long- term current use of insulin E11.9 [facility] [id number] [place] [address] 20739- 5411 Sep, Type 2 diabetes mellitus without complication, [...] lesion type I25.118 and 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 [facility] [id number] [place] [address] 60656- 0992 Aug, Type 2 diabetes mellitus without complication, without long- term current use of insulin E11.9 [facility] [id number] [place] [address] 48994- 3837 Aug, Hypothyroid E03.9 [facility] [id number] [place] [address] 17276- 1369 Aug, Type 2 diabetes mellitus without complication, [...] type I25.118 and Encounter for immunization Z23 [facility] [id number] [place] [address] 59046- 7092 Jul, Hypothyroid E03.9 and Hypercholesterolemia E78.00 [facility] [address] 87183- 0198 Jul, Hypothyroid E03.9 ; Diabetes mellitus E11.9 and Hypercholesterolemia E78.0 [facility] [id number] [place] [address] 79266- 2663 Jul, Hypothyroid E03.9 ; Diabetes mellitus E11.9 and Hypercholesterolemia E78.0 [facility] [id number] [place] [address] 49779- 1872 May, CVA (cerebral vascular accident) I63.9 and Dizziness R42 [facility] [address] 63865- 3397 May, Dehydration E86.0 ; CVA (cerebral vascular accident) I63.9 ; COPD (chronic obstructive pulmonary disease) J44.9 and Dizziness R42 [facility] [id number] [place] [address] 28285- 3504 March, Diabetes mellitus E11.9 ; Angina at rest I20.8 ; COPD ( chronic obstructive pulmonary disease) J44.9 ; GERD (gastroesophageal reflux disease) K21.9 ; Hypercholesterolemia E78.00 ; CVA (cerebral vascular accident) I63.9 and Hypothyroid E03.9 [facility] [id number] [place] [address] 29833- 6818 Jan, Hypothyroid E03.9 and Diabetes mellitus E11.9 [facility] [id number] [place] [address] 38116- 1376 Jan, [facility] [id number] [place] [address] 58098- 9523 Jan, Diabetes mellitus E11.9 [facility] [id number] [place] [address] 42937- 2069 Jan, [facility] [id number] [place] [address] 54549- 4379 Dec, Diabetes mellitus E11.9 ; CVA (cerebral vascular accident) I63.9 ; COPD (chronic obstructive pulmonary disease) J44.9 ; Hypothyroid E03.9 ; GERD (gastroesophageal reflux disease) K21.9 and Hypercholesterolemia E78.00 [facility] [id number] [place] [address] 01873- 2250 Nov, Diabetes mellitus E11.9 [facility] [id number] [place] [address] 43726- 9327 Nov, [facility] [id number] [place] [address] 33431- 1573 Nov, [facility] [address] 60064- 1623 Nov, [facility] [id number] [place] [address] 96546- 7867 Nov, Diabetes mellitus E11.9 [facility] [id number] [place] [address] 42392- 3602 Oct, Hypothyroid E03.9 [facility] [address] 81476- 4753 Oct, Diabetes mellitus E11.9 [facility] [id number] [place] [address] 05970- 6142 Oct, COPD (chronic obstructive pulmonary disease) J44.9 [facility] [id number] [place] [address] 59769- 7962 Oct, [facility] [id number] [place] [address] 83473- 1007 Sep, Diabetes mellitus E11.9 ; Angina at rest I20.8 ; Hypercholesterolemia E78.0 ; COPD (chronic obstructive pulmonary disease) J44.9 ; GERD (gastroesophageal reflux disease) K21.9 ; Dysuria R30.0 ; Acquired hypothyroidism E03.9 ; Encounter for immunization Z23 and Acute cystitis without hematuria N30.00 [facility] [id number] [place] [address] 49716- 4026 Sep, Diabetes mellitus E11.9 [facility] IN [facility] [id number] [place] [address] 18510 -7372 Aug, [facility] [address], [place] [address]- 8466 Aug, Diabetes mellitus E11.9 [facility] [id number] [place] [address] 92526- 3559 Jun, Angina at rest I20.8 ; CVA (cerebral vascular accident) I63.9 ; Diabetes mellitus E11.9 ; Hypercholesterolemia E78.0 ; COPD (chronic obstructive pulmonary disease) J44.9 ; GERD (gastroesophageal reflux disease) K21.9 ; Peptic ulcer K27.9 and Hypothyroid E03.9 [facility] [id number] [place] [address] 38874- 6470 Jun, [facility] [id number] [place] [address] 11338- 4240 May, Diabetes mellitus E11.9 ; CVA (cerebral vascular accident) I63.9 ; COPD (chronic obstructive pulmonary disease) J44.9 and Angina at rest I20.8 [facility] [address], [place] [address]- 7009 May, [facility] [id number] [place] [address] 96751- 0937 May, Diabetes mellitus E11.9 ; Hypothyroid E03.9 ; Angina at rest I20.8 ; CVA (cerebral vascular accident) I63.9 ; COPD (chronic obstructive pulmonary disease) J44.9 ; GERD (gastroesophageal reflux disease) K21.9 and Hypercholesterolemia E78.0 [facility] [address], [place] [address]- 0149 Apr, Hypercholesterolemia E78.0 [facility] [address], [place] [address]- 7728 Apr, [facility] [id number] [place] [address] 76871- 4869 March, Diabetes mellitus E11.9 ; Hypothyroid E03.9 ; Hypercholesterolemia E78.0 ; COPD (chronic obstructive pulmonary disease) J44.9 ; GERD (gastroesophageal reflux disease) K21.9 ; Constipation K59.00 ; CVA ( cerebral vascular accident) I63.9 and Angina at rest I20.8 [facility] [id number] [place] [address] 64135- 9983 March, [facility] [id number] [place] [address] 59308- 1829 Feb, [facility] [id number] [place] [address] 44391- 0244 Feb, [facility] [id number] [place] [address] 30473- 3558 Feb, [facility] [id number] [place] [address] 56929- 3604 Jan, Diabetes mellitus E11.9 ; Hypercholesterolemia E78.0 ; CVA ( cerebral vascular accident) I63.9 ; GERD (gastroesophageal reflux disease) K21.9 ; Hypothyroid E03.9 and Angina at rest I20.8 [facility] [id number] [place] [address] 81858- 3928 Dec, Diabetes mellitus E11.9 ; Hypothyroid E03.9 ; Angina at rest I20.8 ; CVA (cerebral vascular accident) I63.9 ; Hypercholesterolemia E78.0 ; COPD (chronic obstructive pulmonary disease) J44.9 ; GERD ( gastroesophageal reflux disease) K21.9 and Dysuria R30.0 [facility] [id number] [place] [address] 56698- 1535 Nov, [facility] [id number] [place] [address] 35989- 7384 Nov, Hypothyroid E03.9 [facility] [id number] [place] [address] 75016- 4995 Nov, Hypothyroid E03.9 ; Angina at rest I20.8 ; CVA (cerebral vascular accident) I63.9 ; Hypercholesterolemia E78.0 ; COPD (chronic obstructive pulmonary disease) J44.9 ; GERD (gastroesophageal reflux disease) K21.9 and Diabetes E11.9 [facility] [address], [place] [address]7 Oct, Upper respiratory symptom R09.89 [facility] [id number] [place] [address] 06338- 9022 Oct, [facility] [id number] [place] [address] 27878- 8955 Oct, [facility] [id number] [place] [address] 50767- 4219 Oct, [facility] [id number] [place] [address] 26987- 4365 Aug, Diabetes mellitus 250.00 ; Encounter for immunization Z23 ; Hypothyroid E03.9 ; Angina at rest I20.8 ; CVA (cerebral vascular accident) I63.9 ; Hypercholesterolemia E78.0 ; COPD (chronic obstructive pulmonary disease ) J44.9 and GERD (gastroesophageal reflux disease) K21.9 [facility] [id number] [place] [address] 95614- 1576 Jul, [facility] [address] 06932- 5581 Jun, [facility] [id number] [place] [address] 84316- 7500 Jun, [facility] [id number] [place] [address] 33536- 8660 May, [facility] [id number] [place] [address] 18374- 7423 May, Diabetes mellitus 250.00 ; Hypothyroidism 244.9 ; Angina at rest 413.9 ; CVA (cerebral infarction) 434.91 ; Hypercholesterolemia 272.0 ; COPD (chronic obstructive pulmonary disease) 496 and GERD (gastroesophageal reflux disease) 530.81 [facility] [id number] [place] [address] 00672- 2490 Oct, [facility] [address] 98568- 1742 Oct, [facility] [address], [place] [address]- 7885 Oct, [facility] [address] 1828 Oct, [facility] [address] 0921 Sep, [facility] [id number] [place] [address] 353881- 4165 Aug, [facility] [id number] [place] [address] 45125- 0395 Aug, [facility] [id number] [place] [address] 124757- 0606 Aug, [facility] [id number] [place] [address] 52885- 1280 Jul, [facility] [address], [place] [address]- 7866 Jan, [facility] [id number] [place] [address] 87911- 2412 Oct, [facility] [address], [place] [address]- 5894 Oct, [facility] [address], [place] [address]- 9517 Sep, [facility] [address], [place] [address]- 3741 Apr, [facility] [id number] [place] [address] 235300- 3150 Dec, IMMUNIZATIONS No Known Immunizations SOCIAL HISTORY Never Assessed REASON FOR VISIT Lab (walk-in) PLAN OF CARE VITAL SIGNS MEDICATIONS Unknown Medications RESULTS Name Result Date Reference Range TSH 2018-03-09 TSH 5.76 0.40-4.50 PROCEDURES Procedure Date Ordered Result Body Site LAB NOT BILLED BY [facility] March 09, 2018 VENIPUNCT, ROUTINE* March 09, 2018 INSTRUCTIONS MEDICATIONS ADMINISTERED No Known Medications [...] lobe Pneumonia 02/24/16 Hospitalization History Chest Pain--[facility] 05/19/16 Hospitalization History Chest pain--[facility] 06/18/16 Hospitalization History Influenza & COPD exacerbation 12/21 Hospitalization History Cardiac Monitoring 01/2018 Hospitalization History Via [facility], tripped and hit head 04/2018
--- OUTSIDE RECORDS SUMMARY | 2018-07-19 13:07 | XMS REPORT | Continuity of Care Document ---
Author Author [facility] Organization [facility] Address Unknown Phone Unavailable Allergies Active Description Code Type Severity Reaction Onset Reported/Identified Relationship to Patient Clinical Status Yes Sulfa (Sulfonamide Antibiotics) [id number] Drug Allergy Unknown N/A 2007 Yes tramadol [id number] Drug Allergy Unknown N/A 09/01/2008 Yes fentanyl [id number] Drug Allergy Moderate SEVERE NAUSEA/V 06/07/2011 Medications [...] NEC/NOS 06/04/2012 Ot 414.01 CORONARY ATHEROSCLEROSIS OF [place] CORON 06/04/2012 Ot 414.02 CORON ATHEROSCLEROSIS AUTOLOG VEIN BYPAS 06/04/2012 Ot 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 09/09/2012 Ot 250.00 DIAB MARISOL WO COMPL, TYPE II OR UNSPEC TY 09/09/2012 Ot 401.9 HYPERTENSION NOS 09/09/2012 Ot 414.01 CORONARY ATHEROSCLEROSIS OF [place] CORON 09/09/2012 Ot 780.4 DIZZINESS AND GIDDINESS [...] RODARTE MD Ot 414.01 CORONARY ATHEROSCLEROSIS OF [place] CORON 12/22/2013 AZAR RODARTE MD Ot 414.02 [...] Art Ot 424.0 07/17/2015 ASTER FORTE, AZAR rAt Ot 496 07/17/2015 ASTER FORTE, AZAR Art [...] MD Ot I25.10 ATHSCL HEART DISEASE OF [place] CORONARY 02/21/2016 AZAR RODARTE MD Ot I49.5 SICK SINUS SYNDROME 02/21/2016 AZAR RODARTE MD, Ot J44.9 CHRONIC OBSTRUCTIVE PULMONARY DISEASE, U 02/21/2016 AZAR RODARTE MD Ot 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 02/21/2016 AZAR RODARTE MD [...] MD Ot I25.10 ATHSCL HEART DISEASE OF [place] CORONARY 03/04/2016 AZAR RODARTE MD Ot I49.5 SICK SINUS SYNDROME 03/04/2016 AZAR RODARTE MD Ot J44.9 CHRONIC OBSTRUCTIVE PULMONARY DISEASE, U 03/04/2016 AZAR RODARTE MD Ot Z79.899 OTHER [facility] (CURRENT) DRUG THERAPY 03/04/2016 AZAR RODARTE MD Ot Z95.1 PRESENCE OF AORTOCORONARY BYPASS GRAFT 04/03/2016 AZAR RODARTE MD Ot E78.0 PURE HYPERCHOLESTEROLEMIA 04/03/2016 AZAR RODARTE MD Ot I25.10 ATHSCL HEART DISEASE OF [place] CORONARY 2016 ОЛЕГ AGUILA Ot E78.2 MIXED HYPERLIPIDEMIA 2016 ОЛЕГ AGUILA Ot I10 ESSENTIAL (PRIMARY) HYPERTENSION 2016 ОЛЕГ AGUILA Ot I25.10 ATHSCL HEART DISEASE OF [place] CORONARY 2016 ОЛЕГ AGUILA Ot 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 04/26/2016 AZAR RODARTE MD Ot E78.0 PURE HYPERCHOLESTEROLEMIA 04/26/2016 AZAR RODARTE MD Ot I25.10 ATHSCL HEART DISEASE OF [place] CORONARY 05/14/2016 ОЛЕГ AGUILA Ot E78.2 MIXED HYPERLIPIDEMIA 05/14/2016 ОЛЕГ AGUILA Ot I10 ESSENTIAL (PRIMARY) HYPERTENSION 05/14/2016 ОЛЕГ AGUILA Ot I25.10 ATHSCL HEART DISEASE OF [place] CORONARY 05/14/2016 ОЛЕГ AGUILA Ot 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 05/20/2016 AZRA DO KODI K Ot E03.9 HYPOTHYROIDISM, UNSPECIFIED 05/20/2016 OQUENDO DO KODI K Ot E11.9 TYPE 2 DIABETES MELLITUS WITHOUT COMPLIC 05/20/2016 OQUENDO DO, KODI K Ot E66.9 OBESITY, UNSPECIFIED 05/20/2016 OQUENDO DO, KODI K Ot I25.10 ATHSCL HEART DISEASE OF [place] CORONARY 05/20/2016 OQUENDO DO KODI K Ot I25.2 OLD MYOCARDIAL INFARCTION 05/20/2016 OQUENDO DO KODI K Ot J44.9 CHRONIC OBSTRUCTIVE PULMONARY DISEASE, U 05/20/2016 OQUENDO DO, KODI K Ot K21.9 GASTRO-ESOPHAGEAL REFLUX DISEASE WITHOUT 05/20/2016 OUQENDO DO, KODI K Ot R07.89 OTHER CHEST [...] K Ot I25.10 ATHSCL HEART DISEASE OF [place] CORONARY 05/20/2016 OQUENDO DO KODI K Ot [...] AGUILA Ot I25.10 ATHSCL HEART DISEASE OF [place] CORONARY 06/11/2016 ОЛЕГ AGUILA Ot 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 06/20/2016 JAKY BONILLA MD Ot E03.9 HYPOTHYROIDISM, UNSPECIFIED 06/20/2016 JAKY BONILLA MD, Ot E78.5 HYPERLIPIDEMIA, UNSPECIFIED 06/20/2016 JAKY BONILLA MD, Ot I10 ESSENTIAL (PRIMARY) HYPERTENSION 06/20/2016 JAKY BONILLA MD Ot I25.10 ATHSCL HEART DISEASE OF [place] CORONARY 06/20/2016 JAKY BONILLA MD Ot 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 06/20/2016 JAKY BONILLA MD Ot I49.5 SICK SINUS SYNDROME 06/20/2016 JAKY BONILLA MD Ot J44.9 CHRONIC OBSTRUCTIVE PULMONARY DISEASE, U 06/20/2016 JAKY BONILLA MD Ot K20.9 ESOPHAGITIS, UNSPECIFIED 06/20/2016 JAKY BONILLA MD, Ot K44.9 DIAPHRAGMATIC HERNIA WITHOUT OBSTRUCTION 06/20/2016 JAKY BONILLA MD, Ot Z79.899 OTHER [facility] (CURRENT) DRUG THERAPY 06/20/2016 JAKY BONILLA MD Ot Z95.1 PRESENCE OF AORTOCORONARY BYPASS GRAFT 07/07/2016 ОЛЕГ AGUILA Ot E78.2 MIXED HYPERLIPIDEMIA 07/07/2016 ОЛЕГ AGUILA Ot I10 ESSENTIAL (PRIMARY) HYPERTENSION 07/07/2016 ОЛЕГ AGUILA Ot I25.10 ATHSCL HEART DISEASE OF [place] CORONARY 07/07/2016 ОЛЕГ AGUILA Ot 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 07/15/2016 ОЛЕГ AGUILA Ot E78.2 MIXED HYPERLIPIDEMIA 07/15/2016 ОЛЕГ AGUILA Ot I10 ESSENTIAL (PRIMARY) HYPERTENSION 07/15/2016 ОЛЕГ AGUILA Ot I25.10 ATHSCL HEART DISEASE OF [place] CORONARY 07/15/2016 ОЕЛГ AGUILA Ot 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 10/20/2017 KEYMARIA Dajuan MACHINE FORMER Ot Z78.0 ASYMPTOMATIC MENOPAUSAL STATE 10/21/2017 MARIA MACKEY Daujan MACHINE FORMER Ot Z87.891 PERSONAL HISTORY OF NICOTINE DEPENDENCE [...] Ot 241.0 NONTOX UNINODULAR GOITER 10/21/[address] MD Ot 427.89 CARDIAC DYSRHYTHMIAS NEC 10/21/2017 [...] MD Ot I25.10 ATHSCL HEART DISEASE OF [place] CORONARY 10/21/2017 ОЛЕГ AGUILA Ot E78.2 MIXED HYPERLIPIDEMIA 10/21/2017 ОЛЕГ AGUILA Ot I10 ESSENTIAL (PRIMARY) HYPERTENSION 10/21/2017 ОЛЕГ AGUILA Ot I25.10 ATHSCL HEART DISEASE OF [place] CORONARY 10/21/2017 ОЛЕГ AGUILA Ot 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 10/21/2017 MARIA MACKEYP Ot Z12.31 ENCNTR SCREEN MAMMOGRAM FOR MALIGNANT NE 10/21/2017 MARIA MACKEY MACHINE FORMER Ot Z78.0 ASYMPTOMATIC MENOPAUSAL STATE 10/21/2017 MARIA MACKEY MACHINE FORMER Ot Z87.891 PERSONAL HISTORY OF NICOTINE DEPENDENCE 10/22/2017 MARIA MACKEY MACHINE FORMER Ot Z87.891 PERSONAL HISTORY OF NICOTINE DEPENDENCE [...] SCREENING FOR MALIGNANT NE 11/13/2017 MARIA MACKEY MACHINE FORMER Ot Z78.0 ASYMPTOMATIC MENOPAUSAL STATE 11/13/2017 MADLMARIA MACHINE FORMER Ot Z78.0 ASYMPTOMATIC MENOPAUSAL STATE 11/13/2017 JEANINE [...] MD Ot I25.10 ATHSCL HEART DISEASE OF [place] CORONARY 11/13/2017 ОЛЕГ AGUILA Ot E78.2 MIXED HYPERLIPIDEMIA 11/13/2017 ОЛЕГ AGUILA Ot I10 ESSENTIAL (PRIMARY) HYPERTENSION 11/13/2017 ОЛЕГ AGUILA Ot I25.10 ATHSCL HEART DISEASE OF [place] CORONARY 11/13/2017 ОЛЕГ AGUILA Ot 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 11/13/2017 MARIA MACKEY MACHINE FORMER Ot Z12.31 ENCNTR SCREEN MAMMOGRAM FOR MALIGNANT NE 11/13/2017 MARIA MACKEY MACHINE FORMER Ot Z78.0 ASYMPTOMATIC MENOPAUSAL STATE 11/13/2017 MARIA MACKEY MACHINE FORMER Ot K76.0 FATTY (CHANGE OF) LIVER, NOT ELSEWHERE C 11/13/2017 BECKYLMARIA MACHINE FORMER Ot Z12.2 ENCNTR SCREEN FOR MALIGNANT NEOPLASM OF 11/13/2017 MARIA MACKEY MACHINE FORMER Ot Z87.891 PERSONAL HISTORY OF NICOTINE DEPENDENCE 11/13/2017 MADLSHERIA L MACHINE FORMER Ot Z95.1 PRESENCE OF AORTOCORONARY BYPASS GRAFT 11/13/2017 MIKE FORTE, GLENDY Myles Ot Z01.818 ENCOUNTER FOR OTHER PREPROCEDURAL EXAMIN 11/13/2017 MIKE FORTE, GLENDY Myles Ot Z12.11 ENCOUNTER FOR SCREENING FOR MALIGNANT NE 11/14/2017 MARIA MACKEY MACHINE FORMER Ot 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, 11/14/2017 BECKYLMARIA MACHINE FORMER Ot M85.88 OTH DISRD OF BONE DENSITY AND STRUCTURE, 11/21/2017 BECKYLMARIA MACHINE FORMER Ot K76.0 FATTY (CHANGE OF) LIVER, NOT ELSEWHERE C 11/21/2017 BECKYLMARIA MACHINE FORMER Ot Z12.2 ENCNTR SCREEN FOR MALIGNANT NEOPLASM OF 11/21/2017 MARIA MACKEY L MACHINE FORMER Ot Z87.891 PERSONAL HISTORY OF NICOTINE DEPENDENCE 11/21/2017 BECKYLSHERIA L MACHINE FORMER Ot Z95.1 PRESENCE OF AORTOCORONARY BYPASS GRAFT 12/03/2017 MARIA MACKEY MACHINE FORMER Ot K76.0 FATTY (CHANGE OF) LIVER, NOT ELSEWHERE C 12/03/2017 BECKYLMARIA L MACHINE FORMER Ot Z12.2 ENCNTR SCREEN FOR MALIGNANT NEOPLASM OF 12/03/2017 MARIA MACKEY L MACHINE FORMER Ot Z87.891 PERSONAL HISTORY OF NICOTINE DEPENDENCE 12/03/2017 MADLSHERIA L MACHINE FORMER Ot Z95.1 PRESENCE OF AORTOCORONARY BYPASS GRAFT 12/09/2017 MARIA MACKEY MACHINE FORMER Ot 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, 12/09/2017 MARIA MACKEY MACHINE FORMER Ot M85.88 OTH DISRD OF BONE DENSITY AND STRUCTURE, 12/09/2017 MARIA MACKEY MACHINE FORMER Ot Z13.820 ENCOUNTER FOR SCREENING FOR OSTEOPOROSIS 12/09/2017 MARIA MACKEY MACHINE FORMER Ot Z78.0 ASYMPTOMATIC MENOPAUSAL STATE 12/18/2017 MARIA MACKEY MACHINE FORMER Ot 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, 12/18/2017 MARIA MACKEY MACHINE FORMER Ot M85.88 OTH DISRD OF BONE DENSITY AND STRUCTURE, 12/18/2017 MARIA MACKEY MACHINE FORMER Ot Z13.820 ENCOUNTER FOR SCREENING FOR OSTEOPOROSIS 12/18/2017 MARIA MACKEY MACHINE FORMER Ot Z78.0 ASYMPTOMATIC MENOPAUSAL STATE 12/24/2017 ALLAN GUZMAN MD, Ot E03.9 HYPOTHYROIDISM, UNSPECIFIED 12/24/2017 ALLAN GUZMAN MD, Ot E11.9 TYPE 2 DIABETES MELLITUS WITHOUT COMPLIC 12/24/2017 ALLAN GUZMAN MD, Ot E78.5 HYPERLIPIDEMIA, UNSPECIFIED 12/24/2017 ALLAN GUZMAN MD, Ot I10 ESSENTIAL (PRIMARY) HYPERTENSION 12/24/2017 ALLAN GUZMAN MD, Ot I25.10 ATHSCL HEART DISEASE OF [place] CORONARY 12/24/2017 ALLAN GUZMAN MD, Ot I25.2 [...] MD, Ot I10 ESSENTIAL (PRIMARY) HYPERTENSION 01/05/2018 JKAY BONILLA MD, Ot I25.118 ATHSCL HEART DISEASE OF [place] COR ART W 01/05/2018 JAKY BONILLA MD, [...] UNSPECIFIED 01/05/2018 JAKY BONILLA MD, Ot 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 01/05/2018 JAKY BONILLA MD, Ot Z86.73 PRSNL HX OF TIA (TIA), AND CEREB INFRC W 01/05/2018 JAKY BONILLA MD, Ot Z87.01 PERSONAL HISTORY OF PNEUMONIA (RECURRENT 01/05/2018 JAKY BONILLA MD, Ot Z87.891 PERSONAL HISTORY OF NICOTINE DEPENDENCE 01/05/2018 CHAD FORTE, JAKY Ocampo Ot Z95.1 PRESENCE OF AORTOCORONARY BYPASS GRAFT 01/05/2018 JAKY BONILLA MD Ot Z95.5 PRESENCE OF CORONARY ANGIOPLASTY IMPLANT 01/05/2018 JAKY BONILLA MD Ot Z99.81 DEPENDENCE ON SUPPLEMENTAL OXYGEN 01/15/2018 AZAR RODARTE MD Ot E78.5 HYPERLIPIDEMIA, UNSPECIFIED 01/15/2018 AZAR RODARTE MD Ot I10 ESSENTIAL (PRIMARY) HYPERTENSION 01/15/2018 AZAR RODARTE MD Ot I25.10 ATHSCL HEART DISEASE OF [place] CORONARY 01/15/2018 AZAR RODARTE MD Ot I34.0 NONRHEUMATIC MITRAL (VALVE) INSUFFICIENC 01/15/2018 AZAR RODARTE MD Ot R07.9 CHEST PAIN, UNSPECIFIED 01/20/2018 AZAR RODARTE MD Ot E78.2 MIXED HYPERLIPIDEMIA 01/20/2018 AZAR RODARTE MD Ot I10 ESSENTIAL (PRIMARY) HYPERTENSION 01/20/2018 AZAR RODARTE MD Ot I25.10 ATHSCL HEART DISEASE OF [place] CORONARY 01/20/2018 AZAR RODARTE MD Ot R07.9 CHEST PAIN, UNSPECIFIED 02/10/2018 AZAR RODARTE MD Ot E78.2 MIXED HYPERLIPIDEMIA 02/10/2018 AZAR RODARTE MD Ot I10 ESSENTIAL (PRIMARY) HYPERTENSION 02/10/2018 AZAR RODARTE MD Ot I25.10 ATHSCL HEART DISEASE OF [place] CORONARY 02/10/2018 AZAR RODARTE MD Ot R07.9 CHEST PAIN, UNSPECIFIED 04/02/2018 ALLISON PUCKETT MD Ot E03.9 HYPOTHYROIDISM, UNSPECIFIED 04/02/2018 ALLISON PUCKETT MD Ot E11.9 TYPE 2 DIABETES MELLITUS WITHOUT COMPLIC 04/02/2018 ALLISON PUCKETT MD Ot E78.00 PURE HYPERCHOLESTEROLEMIA, UNSPECIFIED 04/02/2018 ALLISON PUCKETT MD Ot I10 ESSENTIAL (PRIMARY) HYPERTENSION 04/02/2018 ALLISON PUCKETT MD Ot I25.10 ATHSCL HEART DISEASE OF [place] CORONARY 04/02/2018 ALLISON PUCKETT MD Ot I25.2 OLD MYOCARDIAL INFARCTION 04/02/2018 ALLISON PUCKETT MD, Ot J44.9 CHRONIC OBSTRUCTIVE PULMONARY DISEASE, U 04/02/2018 ALLISON PUCKETT MD, Ot K21.9 GASTRO-ESOPHAGEAL REFLUX DISEASE WITHOUT 04/02/2018 ALLISON PUCKETT MD, Ot R40.2142 COMA SCALE, EYES OPEN, SPONTANEOUS, EMR 04/02/2018 ALLISON PUCKETT MD, Ot R40.2252 COMA SCALE, BEST VERBAL RESPONSE, ORIENT 04/02/2018 ALLISON PUCKETT MD, Ot R40.2362 COMA SCALE, BEST MOTOR RESPONSE, OBEYS C 04/02/2018 ALLISON PUCKETT MD, Ot S01.81XA LACERATION W/O FOREIGN BODY OF OTH PART 04/02/2018 ALLISON PUCKETT MD, Ot S06.0X1A CONCUSSION W LOC OF 30 MINUTES OR LESS, 04/02/2018 ALLISON PUCKETT MD Ot S50.312A ABRASION OF LEFT ELBOW, INITIAL ENCOUNTE 04/02/2018 ALLISON PUCKETT MD Ot W01.198A FALL SAME LEV FROM SLIP/TRIP W STRIKE AG 04/02/2018 ALLISON PUCKETT MD Ot Z23 ENCOUNTER FOR IMMUNIZATION 04/02/2018 ALLISON PUCKETT MD Ot 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 04/02/2018 ALLISON PUCKETT MD Ot Z79.82 [facility] (CURRENT) USE OF ASPIRIN 04/02/2018 ALLISON PUCKETT MD, Ot Z82.49 FAMILY HX OF ISCHEM HEART DIS AND OTH DI 04/02/2018 ALLISON PUCKETT MD, Ot Z86.73 PRSNL HX OF TIA (TIA), AND CEREB INFRC W 04/02/2018 ALLISON PUCKETT MD, Ot Z87.01 PERSONAL HISTORY OF PNEUMONIA (RECURRENT 04/02/2018 ALLISON PUCKETT MD, Ot Z87.19 PERSONAL HISTORY OF OTHER DISEASES OF TH 04/02/2018 ALLISON PUCKETT MD, Ot Z87.891 PERSONAL HISTORY OF NICOTINE DEPENDENCE 04/02/2018 ALLISON PUCKETT MD, Ot Z88.2 ALLERGY STATUS TO SULFONAMIDES STATUS 04/02/2018 ALLISON PUCKETT MD, Ot Z88.6 ALLERGY STATUS TO ANALGESIC AGENT STATUS 04/02/2018 ALLISON PUCKETT MD, Ot Z88.8 ALLERGY STATUS TO OTH DRUG/MEDS/BIOL SUB 04/02/2018 ALLISON PUCKETT MD, Ot 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 CERVIX AND UTER 04/02/2018 ALLISON PUCKETT MD, Ot Z95.1 PRESENCE OF AORTOCORONARY BYPASS GRAFT 04/02/2018 ALLISON PUCKETT MD, Ot Z95.5 PRESENCE OF CORONARY ANGIOPLASTY IMPLANT 04/06/2018 ALLISON PUCKETT MD Ot E03.9 HYPOTHYROIDISM, UNSPECIFIED 04/06/2018 ALLISON PUCKETT MD, Ot E11.9 TYPE 2 DIABETES MELLITUS WITHOUT COMPLIC 04/06/2018 ALLISON PUCKETT MD, Ot E78.00 PURE HYPERCHOLESTEROLEMIA, UNSPECIFIED 04/06/2018 ALLISON PUCKETT MD, Ot I10 ESSENTIAL (PRIMARY) HYPERTENSION 04/06/2018 ALLISON PUCKETT MD, Ot I25.10 ATHSCL HEART DISEASE OF [place] CORONARY 04/06/2018 ALLISON PUCKETT MD, Ot I25.2 OLD MYOCARDIAL INFARCTION 04/06/2018 ALLISON PUCKETT MD, Ot J44.9 CHRONIC OBSTRUCTIVE PULMONARY DISEASE, U 04/06/2018 ALLISON PUCKETT MD, Ot K21.9 GASTRO-ESOPHAGEAL REFLUX DISEASE WITHOUT 04/06/2018 ALLISON PUCKETT MD, Ot R40.2142 COMA SCALE, EYES OPEN, SPONTANEOUS, EMR 04/06/2018 ALLISON PUCKETT MD, Ot R40.2252 COMA SCALE, BEST VERBAL RESPONSE, ORIENT 04/06/2018 ALLISON PUCKETT MD, Ot R40.2362 COMA SCALE, BEST MOTOR RESPONSE, OBEYS C 04/06/2018 ALLISON PUCKETT MD, Ot S01.81XA LACERATION W/O FOREIGN BODY OF OTH PART 04/06/2018 ALLISON PUCKETT MD, Ot S06.0X1A CONCUSSION W LOC OF 30 MINUTES OR LESS, 04/06/2018 ALLISON PUCKETT MD Ot S50.312A ABRASION OF LEFT ELBOW, INITIAL ENCOUNTE 04/06/2018 ALLISON PUCKETT MD Ot W01.198A FALL SAME LEV FROM SLIP/TRIP W STRIKE AG 04/06/2018 ALLISON PUCKETT MD, Ot Z23 ENCOUNTER FOR IMMUNIZATION 04/06/2018 ALLISON PUCKETT MD, Ot Z79.02 [facility] (CURRENT) USE OF ANTITHROMBOTI 04/06/2018 ALLISON PUCKETT MD, Ot Z79.82 [facility] (CURRENT) USE OF ASPIRIN 04/06/2018 ALLISON PUCKETT MD Ot Z82.49 FAMILY HX OF ISCHEM HEART DIS AND OTH DI 04/06/2018 ALLISON PUCKETT MD, Ot Z86.73 PRSNL HX OF TIA (TIA), AND CEREB INFRC W 04/06/2018 ALLISON PUCKETT MD, Ot Z87.01 PERSONAL HISTORY OF PNEUMONIA (RECURRENT 04/06/2018 ALLISON PUCKETT MD, Ot Z87.19 PERSONAL HISTORY OF OTHER DISEASES OF TH 04/06/2018 ALLISON PUCKETT MD, Ot Z87.891 PERSONAL HISTORY OF NICOTINE DEPENDENCE 04/06/2018 ALLISON PUCKETT MD, Ot Z88.2 ALLERGY STATUS TO SULFONAMIDES STATUS 04/06/2018 ALLISON PUCKETT MD, Ot Z88.6 ALLERGY STATUS TO ANALGESIC AGENT STATUS 04/06/2018 ALLISON PUCKETT MD, Ot Z88.8 ALLERGY STATUS TO OT DRUG/MEDS/BIOL SUB 04/06/2018 ALLISON PUCKETT MD Ot 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 CERVIX AND UTER 04/06/2018 ALLISON PUCKETT MD Ot Z95.1 PRESENCE OF AORTOCORONARY BYPASS GRAFT 04/06/2018 ALLISON PUCKETT MD Ot Z95.5 PRESENCE OF CORONARY ANGIOPLASTY IMPLANT 04/08/2018 ALLISON PUCKETT MD Ot E03.9 HYPOTHYROIDISM, UNSPECIFIED 04/08/2018 ALLISON PUCKETT MD Ot E11.9 TYPE 2 DIABETES MELLITUS WITHOUT COMPLIC 04/08/2018 ALLISON PUCKETT MD Ot E78.00 PURE HYPERCHOLESTEROLEMIA, UNSPECIFIED 04/08/2018 ALLISON PUCKETT MD Ot I10 ESSENTIAL (PRIMARY) HYPERTENSION 04/08/2018 ALLISON PUCKETT MD Ot I25.10 ATHSCL HEART DISEASE OF [place] CORONARY 04/08/2018 ALLISON PUCKETT MD Ot I25.2 OLD MYOCARDIAL INFARCTION 04/08/2018 ALLISON PUCKETT MD, Ot J44.9 CHRONIC OBSTRUCTIVE PULMONARY DISEASE, U 04/08/2018 ALLISON PUCKETT MD, Ot K21.9 GASTRO-ESOPHAGEAL REFLUX DISEASE WITHOUT 04/08/2018 ALLISON PUCKETT MD, Ot R40.2142 COMA SCALE, EYES OPEN, SPONTANEOUS, EMR 04/08/2018 ALLISON PUCKETT MD, Ot R40.2252 COMA SCALE, BEST VERBAL RESPONSE, ORIENT 04/08/2018 ALLISON PUCKETT MD, Ot R40.2362 COMA SCALE, BEST MOTOR RESPONSE, OBEYS C 04/08/2018 ALLISON PUCKETT MD, Ot S01.81XA LACERATION W/O FOREIGN BODY OF OTH PART 04/08/2018 ALLISON PUCKETT MD, Ot S06.0X1A CONCUSSION W LOC OF 30 MINUTES OR LESS, 04/08/2018 ALLISON PUCKETT MD, Ot S50.312A ABRASION OF LEFT ELBOW, INITIAL ENCOUNTE 04/08/2018 ALLISON PUCKETT MD, Ot W01.198A FALL SAME LEV FROM SLIP/TRIP W STRIKE AG 04/08/2018 ALLISON PUCKETT MD Ot Z23 ENCOUNTER FOR IMMUNIZATION 04/08/2018 ALLISON PUCKETT MD, Ot Z79.02 [facility] (CURRENT) USE OF ANTITHROMBOTI 04/08/2018 ALLISON PUCKETT MD, Ot Z79.82 [facility] (CURRENT) USE OF ASPIRIN 04/08/2018 ALLISON PUCKETT MD Ot Z82.49 FAMILY HX OF ISCHEM HEART DIS AND OTH DI 04/08/2018 ALLISON PUCKETT MD, Ot Z86.73 PRSNL HX OF TIA (TIA), AND CEREB INFRC W 04/08/2018 ALLISON PUCKETT MD, Ot Z87.01 PERSONAL HISTORY OF PNEUMONIA (RECURRENT 04/08/2018 ALLISON PUCKETT MD, Ot Z87.19 PERSONAL HISTORY OF OTHER DISEASES OF TH 04/08/2018 ALLISON PUCKETT MD, Ot Z87.891 PERSONAL HISTORY OF NICOTINE DEPENDENCE 04/08/2018 ALLISON PUCKETT MD, Ot Z88.2 ALLERGY STATUS TO SULFONAMIDES STATUS 04/08/2018 ALLISON PUCKETT MD, Ot Z88.6 ALLERGY STATUS TO ANALGESIC AGENT STATUS 04/08/2018 ALLISON PUCKETT MD, Ot Z88.8 ALLERGY STATUS TO OTH DRUG/MEDS/BIOL SUB 04/08/2018 ALLISON PUCKETT MD, Ot 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 CERVIX AND UTER 04/08/2018 ALLISON PUCKETT MD, Ot Z95.1 PRESENCE OF AORTOCORONARY BYPASS GRAFT 04/08/2018 ALLISON PUCKETT MD, Ot Z95.5 PRESENCE OF CORONARY ANGIOPLASTY IMPLANT Procedures There is no data. Results Test [...] 10.2 fL 7.5-12.5 ABSOLUTE NEUTROPHILS 6518 cells/uL 6567-7229 ABSOLUTE LYMPHOCYTES 2289 cells/uL 850-3900 ABSOLUTE MONOCYTES [...] - 12/20/17 20:37 CALL POSITIVES (F1 HELP) [facility] FLU RESULT POSITIVE FOR INFLUENZA B ANTIGEN, NEG FOR A ANTIGEN, BY [facility] Complete blood count (CBC) with [...] culture - 12/20/17 22:50 Bacterial urine culture [id number] NRG COLONY COUNT 10,000/ML - 100,000/ML NRG [...] Status Pt. Type Provider Facility Loc./Unit Complaint [id number] 04/02/2018 20:45:00 04/02/2018 22:00:00 DIS Emergency ITALO FORTE, ALLISON Dial [facility] ER FALL [id number] 01/19/2018 07:30:00 01/19/2018 23:59:59 CLS Outpatient AZAR RODARTE MD [facility] CARD CAD [id number] 01/14/2018 11:35:00 01/14/2018 23:59:59 CLS Outpatient AZAR RODARTE MD [facility] CARD CAD [id number] 01/03/2018 17:00:00 01/05/2018 14:00:00 DIS Inpatient JAKY BONILLA MD [facility] ICU CHEST PAIN, ANGINA [id number] 12/20/2017 21:50:00 12/24/2017 18:13:00 DIS Inpatient ALLAN GUZMAN MD [facility] 4TH INFLUENZA B; COPD EXACERBATION [id number] 11/13/2017 08:38:00 11/13/2017 23:59:59 CLS Outpatient MARIA MACKEY [facility] RAD Z78.0 POST MENOPAUSAL [id number] 11/10/2017 09:00:00 11/10/2017 23:59:59 CLS Preadmit GLENDY MCKEON MD [facility] ENDO SCREENING [id number] 11/04/2017 05:19:00 11/04/2017 23:59:59 CLS Outpatient GLENDY MCKEON MD [facility] PREOP COLONOSCOPY [id number] 10/28/2017 07:43:00 10/28/2017 23:59:59 CLS Outpatient MARIA MACKEY MACHINE FORMER [facility] RAD SCREENING [id number] 10/09/2017 11:32:00 10/09/2017 23:59:59 CLS Preadmit MARIA MACKEY MACHINE FORMER [facility] RAD Z12.31 SCREENING [id number] 07/08/2016 10:30:00 07/08/2016 23:59:59 CLS Preadmit ОЛЕГ AGUILA [facility] CARD CAD,SHAN,HTN, HLP [id number] 04/08/2016 10:34:00 07/07/2016 00:01:00 DIS Outpatient ОЛЕГ AGUILA [facility] CARD CAD,SHAN,HTN, HLP [id number] 06/18/2016 19:00:00 06/20/2016 08:01:00 DIS Outpatient JAKY BONILLA MD [facility] CATH CHEST PAIN [id number] 05/19/2016 15:07:00 05/20/2016 15:29:00 DIS Inpatient KODI OQUENDO DO [facility] 4TH CHEST PAIN [id number] 04/02/2016 09:55:00 04/02/2016 23:59:59 CLS Outpatient AZAR RODARTE MD [facility] HH CAD, ELEVATED CHOLESTEROL [id number] 02/24/2016 18:31:00 02/28/2016 12:38:00 DIS Inpatient HECTOR COTTO MD [facility] 4TH RT UPPER LOBE PNEUMONIA [id number] 02/21/2016 09:38:00 02/21/2016 10:50:00 DIS Outpatient AZAR RODARTE MD [facility] CATH CAD,HTN,HLP [id number] 07/24/2015 07:11:00 07/24/2015 23:59:59 CLS Outpatient AZAR RODARTE MD [facility] CARD CAD,NEAR SYCOPE,HTN [id number] 07/17/2015 08:28:00 07/17/2015 23:59:59 CLS Outpatient ОЛЕГ AGUILA [facility] CARD CAD,DYSPNEA, HTN,NEAR SYNCOPE [id number] 06/30/2015 13:45:00 06/30/2015 23:59:59 CLS Outpatient AZRA RODARTE MD [facility] CARD BRADYCARDIA [id number] 10/18/2014 11:27:00 10/18/2014 14:17:00 DIS Emergency GERRI HODGE [facility] ER WEAK,DIZZY, N/V [id number] 08/18/2014 08:16:00 08/18/2014 11:05:00 DIS Emergency MARILYN FUCHS MD [facility] ER WEAKNESS [id number] 02/10/2014 15:15:00 02/10/2014 17:35:00 DIS Emergency SHAUN SLADE TRISHA K [facility] ER NEAR SYNCOPE [id number] 12/22/2013 07:52:00 12/22/2013 15:25:00 DIS Outpatient AZAR RODARTE MD [facility] CATH CP,HLP,HTN, [id number] 10/11/2013 11:23:00 10/11/2013 23:59:59 CLS Outpatient JEANINE WHITTAKER DO [facility] RAD THYROID NODULES [id number] 09/28/2013 16:10:00 09/28/2013 23:59:59 CLS Outpatient MORGAN SALES DO [facility] RAD SOB,CYANOSIS [id number] 09/10/2013 20:01:00 09/11/2013 06:45:00 DIS Outpatient MORGAN SALES DO [facility] SLEEP COPD,DYSPNEA,EXCESSIVE SLEEPINESS [id number] 08/25/2013 11:34:00 08/25/2013 23:59:59 CLS Outpatient MORGAN SALES DO [facility] RT COPD,DYSPNEA [id number] 08/18/2013 07:31:00 08/18/2013 23:59:59 CLS Outpatient AZAR RODARTE MD [facility] RAD DYSPNEA,CAD,COPD [id number] 08/13/2013 07:57:00 08/13/2013 23:59:59 CLS Outpatient AZAR RODARTE MD [facility] CARD DYSPNEA,CAD,COPD [id number] 06/26/2013 14:41:00 06/26/2013 23:59:59 CLS Outpatient [id number] 06/15/2013 10:30:00 06/15/2013 23:59:59 CLS Outpatient JEANINE WHITTAKER DO [facility] RAD SCREENING [id number] 11/24/2015 13:37:00 Document Registration [id number] 07/17/2015 08:28:00 Document Registration [id number] 06/02/2012 22:50:00 Document Registration [id number] 05/19/2012 08:33:00 Document Registration [id number] 07/10/2011 07:30:00 Document Registration [id number] 06/26/2011 10:27:00 Document Registration [id number] 06/07/2011 02:00:00 Document Registration [id number] 08/15/2010 09:05:00 Document Registration [id number] 08/01/2010 09:03:00 Document Registration [id number] 06/28/2010 11:39:00 Document Registration [id number] 06/12/2010 13:36:00 Document Registration [id number] 02/09/2010 11:36:00 Document Registration [id number] 01/26/2007 11:54:00 Document Registration [id number] 04/20/2018 10:40:00 04/20/2018 23:59:59 CLS Outpatient MARIA MACKEY APRN [facility] [id number] 03/09/2018 13:00:00 Document Registration [id number] 11/19/2017 15:20:00 Document Registration [id number] 08/06/2017 16:20:00 Document Registration [id number] 07/11/2017 09:00:00 Document Registration [id number] 08/07/2017 08:06:00 Document Registration [id number] 09/26/2016 08:06:00 Document Registration [id number] 07/12/2017 09:08:00 Document Registration [id number] 07/24/2015 07:15:48 [place] Document Registration [id number] 03/07/2017 10:09:00 Document Registration
--- NOTE | 2018-07-19 13:09 | ED Abdominal Pain ---
General Stated Complaint: ABD PAIN Source of Information: Patient Exam Limitations: No Limitations History of Present Illness Date Seen by Provider: Jul 19, 2018 Time Seen by Provider: 12:47 Initial Comments Patient is a 73-year-old presents to the emergency room with complaints of left lower quadrant abdominal pain and nausea and vomiting that started last night. She was brought to the emergency room by [facility]. She is a patient of [facility]. Timing/Duration: 12-24 Hours Location: [facility] Radiation: No Radiation Associated Symptoms: Diaphoresis, Nausea/Vomiting Allergies and Home Medications Allergies Coded Allergies: fentanyl (Unverified Allergy, Intermediate, SEVERE NAUSEA/VOMITTING, ) Sulfa (Sulfonamide Antibiotics) (Verified Allergy, Unknown, 03/15/08) morphine (Verified Allergy, Unknown, 07/19/18) tramadol (Verified Allergy, Unknown, 09/01/08) Home Medications Acetaminophen 500 Mg Tablet, 1,000 MG PO Q6H PRN for PAIN-MILD, (Reported) TAKES 2 (500 MG) TABLETS Aspirin 81 Mg Tab.chew, 81 MG PO DAILY Prescribed by: JAKY CARRENO on 01/05/18 1252 Atorvastatin Calcium 40 Mg Tablet, 40 MG PO HS, (Reported) Clopidogrel Bisulfate 75 Mg Tablet, 75 MG PO DAILY, (Reported) Isosorbide Mononitrate 60 Mg Tab, 60 MG PO DAILY, (Reported) Levothyroxine Sodium 88 Mcg Tablet, 88 MCG PO DAILY, (Reported) Losartan Potassium 50 Mg Tablet, 50 MG PO DAILY, (Reported) Nitroglycerin 4.9 Gm [place], 1 SPRAY SL UD PRN for CHEST PAIN, (Reported) Pantoprazole Sodium 40 Mg Tablet.dr, 40 MG PO DAILY, (Reported) Ranolazine 1,000 Mg Tab.er.12h, 1,000 MG PO BID, (Reported) Sitagliptin Phos/Metformin HCl 1 Each Tablet, 1 TAB PO BID, (Reported) Patient Home Medication List Home Medication List Reviewed: Yes Review of Systems Review of Systems Constitutional: see HPI; No chills, No fever Gastrointestinal: Abdominal Pain, Nausea, Vomiting Genitourinary: No Symptoms Reported All Other Systems Reviewed Negative Unless Noted: Yes Past Ycnjlfv-Rgoxwz-Qitesg Hx Past Med/Social Hx: Reviewed Nursing Past Med/Soc Hx Patient Social History Type Used: Cigarettes Former Smoker, Quit: May 19, 2009 Recent Foreign Travel: No Contact w/Someone Who Travel: No Recent Hopitalizations: Yes Immunizations Up To Date Tetanus Booster (TDap): Unknown PED Vaccines UTD: Yes Date of Pneumonia Vaccine: Aug 03, 2017 Date of Influenza Vaccine: Aug 03, 2017 Seasonal Allergies Seasonal Allergies: No Past Medical History Surgeries: Yes Cardiac, CABG, Coronary Stent, Gallbladder, Hysterectomy Respiratory: Yes (O2 WITH ANY ACTIVITY AND AT HS) Pneumonia, COPD Currently Using CPAP: No Currently Using BIPAP: No Cardiac: Yes (BRADYCARDIA) Coronary Artery Disease, Heart Attack, High Cholesterol, Hypertension Neurological: Yes Stroke Reproductive Disorders: No Sexually Transmitted Disease: No HIV/AIDS: No Genitourinary: No Gastrointestinal: Yes Gastroesophageal Reflux, Esophagitis, Hiatal Hernia Musculoskeletal: Yes Arthritis, Chronic Back Pain Endocrine: Yes Hypothyroidsim, Diabetes, Non-Insulin dep HEENT: No Cancer: No Psychosocial: No Integumentary: No Blood Disorders: No Adverse Reaction/Blood Tranf: No Family Medical History Reviewed Nursing Family Hx Arthritis 19 FATHER Asthma 19 MOTHER Cardiovascular disease 19 MOTHER G8 BROTHER G8 SISTER G8 SISTER G8 SISTER Cataracts 19 FATHER Diabetes mellitus 19 MOTHER G8 BROTHER G8 SISTER G8 SISTER G8 SISTER Hypertension 19 MOTHER Myocardial infarction 19 MOTHER G8 SISTER G8 SISTER Parkinson's disease G8 BROTHER Prostate cancer 19 FATHER Respiratory disorder G8 BROTHER Thyroid disease 19 MOTHER Physical Exam Vital Signs Vital Signs - First Documented 07/19/18 12:39 Temp 96.7 Pulse 63 Resp 16 B/P (MAP) 154/122 (133) Pulse Ox 95 O2 Delivery Room Air Capillary Refill : Height/Weight/BMI Height: 5'0" Weight: 156lbs. 0.0oz. [id number]; 31.1 BMI Method:Stated General Appearance: WD/WN, no apparent distress Respiratory: chest non-tender, lungs clear, normal breath sounds, no respiratory distress, no accessory muscle use Cardiovascular: normal peripheral pulses, regular rate, rhythm, no edema, no gallop, no JVD, no murmur Gastrointestinal: normal bowel sounds, soft, no organomegaly, no pulsatile mass , tenderness (severe left lower quadrant pain with minimal pressure on palpation.) Back: normal inspection, no CVA tenderness, no vertebral tenderness Neurologic/Psychiatric: alert, normal mood/affect, oriented x 3 Skin: normal color, warm/dry Focused Exam Lactate Level 07/19/18 16:10: Lactic Acid Level 1.54 Lactic Acid Level Laboratory Tests Test 07/19/18 16:10 Lactic Acid Level 1.54 MMOL/L (0.50-2.00) Progress/Results/Core Measures Results/Orders Lab Results Laboratory Tests Test 07/19/18 12:42 07/19/18 13:46 07/19/18 14:57 07/19/18 16:10 Range/Units White Blood Count 7.6 4.3-11.0 10^3/uL Red Blood Count 3.97 L 4.35-5.85 10^6/uL Hemoglobin 11.9 11.5-16.0 G/DL Hematocrit 36 35-52 % Mean Corpuscular Volume 89 80-99 FL Mean Corpuscular Hemoglobin 30 25-34 PG Mean Corpuscular Hemoglobin Concent 34 32-36 G/DL Red Cell Distribution Width 14.7 H 10.0-14.5 % Platelet Count 294 130-400 10^3/uL Mean Platelet Volume 10.3 7.4-10.4 FL Neutrophils (%) (Auto) 51 42-75 % Lymphocytes (%) (Auto) 38 12-44 % Monocytes (%) (Auto) 10 0-12 % Eosinophils (%) (Auto) 1 0-10 % Basophils (%) (Auto) 0 0-10 % Neutrophils # (Auto) 3.8 1.8-7.8 X 10^3 Lymphocytes # (Auto) 2.9 1.0-4.0 X 10^3 Monocytes # (Auto) 0.8 0.0-1.0 X 10^3 Eosinophils # (Auto) 0.1 0.0-0.3 10^3/uL Basophils # (Auto) 0.0 0.0-0.1 10^3/uL Sodium Level 139 135-145 MMOL/L Potassium Level 4.2 3.6-5.0 MMOL/L Chloride Level 104 98-107 MMOL/L Carbon Dioxide Level 23 21-32 MMOL/L Anion Gap 12 5-14 MMOL/L Blood Urea Nitrogen 22 H 7-18 MG/DL Creatinine 0.71 0.60-1.30 MG/DL Estimat Glomerular Filtration Rate > 60 BUN/Creatinine Ratio 31 Glucose Level 134 H 70-105 MG/DL Calcium Level 9.5 8.5-10.1 MG/DL Corrected Calcium 9.5 8.5-10.1 MG/DL Total Bilirubin 0.4 0.1-1.0 MG/DL Aspartate Amino Transf (AST/SGOT) 18 5-34 U/L Alanine Aminotransferase (ALT/SGPT) 17 0-55 U/L Alkaline Phosphatase 51 40-136 U/L Troponin I < 0.30 <0.30 NG/ML Total Protein 6.7 6.4-8.2 GM/DL Albumin 4.0 3.2-4.5 GM/DL Amylase Level 20 L 25-125 U/L Lipase 15 8-78 U/L Urine Color YELLOW Urine Clarity CLEAR Urine pH 6 5-9 Urine Specific [place] 1.020 1.016-1.022 Urine Protein NEGATIVE NEGATIVE Urine Glucose (UA) NEGATIVE NEGATIVE Urine Ketones NEGATIVE NEGATIVE Urine Nitrite NEGATIVE NEGATIVE Urine Bilirubin NEGATIVE NEGATIVE Urine Urobilinogen NORMAL NORMAL MG/DL Urine Leukocyte Esterase 1+ H NEGATIVE Urine RBC (Auto) 3+ H NEGATIVE Urine RBC 2-5 H /HPF Urine WBC 2-5 /HPF Urine Squamous Epithelial Cells 0-2 /HPF Urine Crystals NONE /LPF Urine Bacteria NEGATIVE /HPF Urine Casts NONE /LPF Urine Mucus NEGATIVE /LPF Urine Culture Indicated NO Glucometer 129 H 70-110 MG/DL Lactic Acid Level 1.54 0.50-2.00 MMOL/L My Orders Orders - DHARMESH JONES Comprehensive Metabolic Panel (07/19/18 12:42) Lipase (07/19/18 12:42) Amylase (07/19/18 12:42) Ua Culture If Indicated (07/19/18 12:42) Saline Lock/Iv-Start (07/19/18 12:42) Cbc With Automated Diff (07/19/18 12:42) Ns Iv 1000 Ml (Sodium Chloride 0.9%) (07/19/18 12:45) Ondansetron Injection (Zofran Injectio (07/19/18 12:45) Morphine Injection (Morphine Injection (07/19/18 12:45) Hydromorphone Injection (Dilaudid Inject (07/19/18 13:15) Ct Abdomen/Pelvis W (07/19/18 13:51) Iohexol Injection (Omnipaque 350 Mg/Ml 1 (07/19/18 14:00) Sodium Chloride Flush (Catheter Flush Sy (07/19/18 14:00) Ns (Ivpb) (Sodium Chloride 0.9%) (07/19/18 14:00) Pharmacy Communication (Pharmacy Communi (07/19/18 14:00) Promethazine Injection (Phenergan Injec (07/19/18 14:15) Troponin I (07/19/18 14:11) Ekg Tracing (07/19/18 14:11) Hydromorphone Injection (Dilaudid Inject (07/19/18 15:30) Lactic Acid Analyzer (07/19/18 15:42) Blood Culture (07/19/18 15:42) Medications Given in ED Current Medications Medications Dose Ordered Sig/Kirsten Route Start Time Stop Time Status Last Admin Dose Admin Hydromorphone HCl 0.25 mg ONCE PRN IV 07/19/18 15:30 07/19/18 20:09 DC 07/19/18 18:04 0.25 MG Hydromorphone HCl 0.5 mg ONCE PRN IV 07/19/18 13:15 07/19/18 20:09 DC 07/19/18 12:50 0.5 MG Iohexol 100 ml ONCE ONCE IV 07/19/18 14:00 07/19/18 14:01 DC 07/19/18 14:42 100 ML Ondansetron HCl 8 mg ONCE ONCE IVP 07/19/18 12:45 07/19/18 12:46 DC 07/19/18 12:50 8 MG Promethazine HCl 12.5 mg ONCE ONCE IVP 07/19/18 14:15 07/19/18 14:16 DC 07/19/18 14:15 12.5 MG Sodium Chloride 10 ml NEEDED PRN IV 07/19/18 14:00 07/19/18 14:42 10 ML Sodium Chloride 250 ml ONCE ONCE IV 07/19/18 14:00 07/19/18 14:01 DC 07/19/18 14:42 80 ML Vital Signs/I&O 07/19/18 12:39 Temp 96.7 Pulse 63 Resp 16 B/P (MAP) 154/122 (133) Pulse Ox 95 O2 Delivery Room Air 07/20/18 00:00 Intake Total 1000 ml Balance 1000 ml Progress Progress Note : Time: 16:59 Progress Note I have seen and evaluated the patient. Her pain is under control she is still very nauseated at this time. She has not vomited in the past 30 minutes. I have spoke to Dr. Lombardi at this time. She agrees to admit the patient to her services for better control of the patient's nausea, vomiting, and pain. I do not believe that she would be a good candidate for outpatient treatment due to her severe nausea and vomiting and unable to keep anything down. The patient agrees with plans for admission. Initial ECG Impression Date: Jul 19, 2018 Initial ECG Impression Time: 14:19 Initial ECG Rate: 42 Initial ECG Rhythm: S.Llody Initial ECG Intervals: Normal Initial ECG Impression: Normal Initial ECG Comparisson: Unchanged Departure Communication (Admissions) Time/Spoke to Admitting Phy: 16:[address] Lombardi at this time. She recommends admitting to her services as an observation status, the use of Flomax daily, and pain control and IV fluids at 150/hr. Impression Primary Impression: Intractable nausea and vomiting Additional Impression: Kidney stone Disposition: ADMITTED INPATIENT Condition: Stable/Unchanged Admissions Decision to Admit Reason: Admit from ER (General) Decision to Admit/Date: Jul 19, 2018 Time/Decision to Admit Time: 16:59 Departure-Patient Inst. Referrals: KODI LOMBARDI DO (PCP) Primary Care Physician MARIA MACKEY (Family) Primary Care Physician DHARMESH JONES Jul 19, 2018 13:09
[2018-07-19] MEDS ORDERED: HYDROmorphone 2 MG/ML VIAL (DILAUDID) IV PRN ×2 (13:15→18:00)
[2018-07-19 13:16] LABS: BASOPHILS % (AUTO) 0 % (0-10); EOSINOPHILS # (AUTO) 0.1 10^3/uL (0.0-0.3); EOSINOPHILS % (AUTO) 1 % (0-10); HEMATOCRIT 36 % (35-52); HEMOGLOBIN 11.9 G/DL (11.5-16.0); LYMPHOCYTES # (AUTO) 2.9 X 10^3 (1.0-4.0); LYMPHOCYTES % (AUTO) 38 % (12-44); MEAN CORPUSCULAR HEMOGLOBIN 30 PG (25-34); MEAN CORPUSCULAR HGB CONC 34 G/DL (32-36); MEAN CORPUSCULAR VOLUME 89 FL (80-99); MEAN PLATELET VOLUME 10.3 FL (7.4-10.4); MONOCYTES # (AUTO) 0.8 X 10^3 (0.0-1.0); MONOCYTES % (AUTO) 10 % (0-12); NEUTROPHILS # (AUTO) 3.8 X 10^3 (1.8-7.8); NEUTROPHILS % (AUTO) 51 % (42-75); PLATELET COUNT 294 10^3/uL (130-400); RED BLOOD COUNT 3.97 10^6/uL (4.35-5.85); RED CELL DISTRIBUTION WIDTH 14.7 % (10.0-14.5); WHITE BLOOD COUNT 7.6 10^3/uL (4.3-11.0)
[2018-07-19 13:37] LABS: ALANINE AMINOTRANSFERASE 17 U/L (0-55); ALKALINE PHOSPHATASE 51 U/L (40-136); AMYLASE 20 U/L (25-125); BILIRUBIN,TOTAL 0.4 MG/DL (0.1-1.0); BUN/CREATININE RATIO 31; CALCIUM 9.5 MG/DL (8.5-10.1); CARBON DIOXIDE 23 MMOL/L (21-32); CHLORIDE 104 MMOL/L (98-107); CREATININE SERUM 0.71 MG/DL (0.60-1.30); GFR ESTIMATED > 60; GLUCOSE 134 MG/DL (70-105); POTASSIUM 4.2 MMOL/L (3.6-5.0); SODIUM 139 MMOL/L (135-145); TOTAL PROTEIN 6.7 GM/DL (6.4-8.2)
[2018-07-19] MEDS ORDERED: CATHETER FLUSH 10 ML SYR IV PRN (14:00)
[2018-07-19] MEDS ORDERED: IOHEXOL 350 MG/ML 100 ML (OMNIPAQUE 350) VIAL IV ONE (14:00)
[2018-07-19] MEDS ORDERED: NS 250 ML (IVPB) BAG IV ONE (14:00)
[2018-07-19 14:05] LABS: BILIRUBIN,URINE NEGATIVE (NEGATIVE); CLARITY,URINE CLEAR; COLOR,URINE YELLOW; GLUCOSE, URINE (UA) NEGATIVE (NEGATIVE); KETONES,URINE NEGATIVE (NEGATIVE); LEUKOCYTE ESTERASE ,URINE 1+ (NEGATIVE); NITRITE,URINE NEGATIVE (NEGATIVE); PH,URINE 6 (5-9); PROTEIN,URINE NEGATIVE (NEGATIVE); UROBILINOGEN,URINE NORMAL (NORMAL)
[2018-07-19] MEDS ORDERED: PROMETHAZINE INJ 25 MG/ML (PHENERGAN) AMP IVP ONE (14:15)
[2018-07-19] MEDS: NS IV 1000 ML 1,000 ML IV SCH ×2 (14:19→17:15)
[2018-07-19 14:31] LABS: BACTERIA,URINE NEGATIVE /HPF; SQUAMOUS EPITHELIAL CELL,UR 0-2 /HPF
[2018-07-19] MEDS: HYDROmorphone 2 MG/ML VIAL (DILAUDID) IV PRN ×2 (15:47→18:04)
[2018-07-19 16:22] LABS: LIPASE 15 U/L (8-78)
[2018-07-19 17:55] VITALS: BP 155/71
[2018-07-19] MEDS ORDERED: LEVO88TA54 PO (17:58)
[2018-07-19] MEDS ORDERED: TAMSULOSIN 0.4 MG (FLOMAX) CAP PO SCH (18:00)
[2018-07-19] MEDS ORDERED: ONDANSETRON 4 MG/2 ML (SDV) Z0FRAN IVP PRN (18:00)
[2018-07-19] MEDS ORDERED: PROMETHAZINE INJ 25 MG/ML (PHENERGAN) AMP IVP PRN (18:00)
[2018-07-19] MEDS ORDERED: TAMSULOSIN 0.4 MG (FLOMAX) CAP PO ONE (18:39)
[2018-07-19 19:45] VITALS: BP 102/62
[2018-07-19] MEDS: KETOROLAC 15 MG/ML VIAL IVP SCH (21:41)
[2018-07-20] VITALS: BP 107/61
[2018-07-20] MEDS: NS IV 1000 ML 1,000 ML IV SCH ×3 (00:09→08:45)
[2018-07-20 04:00] VITALS: BP 106/52
[2018-07-20] MEDS: KETOROLAC 15 MG/ML VIAL IVP SCH (05:23)
[2018-07-20 06:23] LABS: BASOPHILS % (AUTO) 1 % (0-10); EOSINOPHILS # (AUTO) 0.1 10^3/uL (0.0-0.3); EOSINOPHILS % (AUTO) 1 % (0-10); HEMATOCRIT 33 % (35-52); HEMOGLOBIN 10.6 G/DL (11.5-16.0); LYMPHOCYTES # (AUTO) 2.6 X 10^3 (1.0-4.0); LYMPHOCYTES % (AUTO) 36 % (12-44); MEAN CORPUSCULAR HEMOGLOBIN 29 PG (25-34); MEAN CORPUSCULAR HGB CONC 32 G/DL (32-36); MEAN CORPUSCULAR VOLUME 91 FL (80-99); MONOCYTES # (AUTO) 0.7 X 10^3 (0.0-1.0); MONOCYTES % (AUTO) 9 % (0-12); NEUTROPHILS # (AUTO) 3.9 X 10^3 (1.8-7.8); NEUTROPHILS % (AUTO) 53 % (42-75); PLATELET COUNT 272 10^3/uL (130-400); RED BLOOD COUNT 3.63 10^6/uL (4.35-5.85); RED CELL DISTRIBUTION WIDTH 14.9 % (10.0-14.5); WHITE BLOOD COUNT 7.4 10^3/uL (4.3-11.0)
[2018-07-20 06:51] LABS: ALANINE AMINOTRANSFERASE 16 U/L (0-55); ALBUMIN 3.3 GM/DL (3.2-4.5); ALKALINE PHOSPHATASE 45 U/L (40-136); BILIRUBIN,TOTAL 0.2 MG/DL (0.1-1.0); BUN/CREATININE RATIO 27; CALCIUM 8.4 MG/DL (8.5-10.1); CARBON DIOXIDE 23 MMOL/L (21-32); CHLORIDE 111 MMOL/L (98-107); CREATININE SERUM 0.66 MG/DL (0.60-1.30); GFR ESTIMATED > 60; GLUCOSE 100 MG/DL (70-105); POTASSIUM 3.6 MMOL/L (3.6-5.0); SODIUM 141 MMOL/L (135-145); TOTAL PROTEIN 5.1 GM/DL (6.4-8.2)
[2018-07-20 08:18] VITALS: BP 130/60
[2018-07-20] MEDS ORDERED: ASPI-983 PO (08:48)
[2018-07-20] MEDS ORDERED: FENO160T12 PO (08:48)
--- NOTE | 2018-07-20 09:30 | History & Physical-Hospitalist ---
GADIEL BOLES MEDICAL STUDENT 07/20/18 0930: History of Present Illness HPI/Chief Complaint CC: Abdominal pain HPI: 73 year old with history of HTN, HLD, DM admitted after presenting to the ED via EMS for LLQ pain x 1 day associated with nausea and vomiting. She says this started the night of 07/18, though she noted dark urine each morning for the week and a half prior to pain developing. The pain is in her back, left flank, and most prominent in her left lower quadrant. It was a constant 10/10 pain at admission. She notes no alleviating or exacerbating factors. She took tylenol, which helped her pain a little. Despite her pain, she was able to keep down food and drink a normal amount. Source: patient Exam Limitations: no limitations Date Seen 07/20/18 Time Seen by Provider: 07:45 Attending Physician Selene Lombardi DO PCP Selene Lombardi DO Referring Physician Date of Admission Jul 19, 2018 at 16:56 Home Medications & Allergies Home Medications Reviewed patient Home Medication Reconciliation performed by pharmacy medication reconciliations automotive drivability technician and/or nursing. Patients Allergies have been reviewed. Allergies Allergies Coded Allergies fentanyl (Unverified Allergy, Intermediate, SEVERE NAUSEA/VOMITTING, 06/07/11) Sulfa (Sulfonamide Antibiotics) (Verified Allergy, Unknown, 03/15/08) morphine (Verified Allergy, Unknown, 07/19/18) tramadol (Verified Allergy, Unknown, 09/01/08) Past Ejtczes-Lloejp-Jlqokz Hx Past Med/Social Hx: Reviewed Nursing Past Med/Soc Hx Patient Social History Marrital Status: Number of Children: 2 Number of living children: 2 Living Status: Lives alone Employed/Student: retired Alcohol Use: Denies Use Recreational Drug Use: No Smoking Status: Former Smoker (100 pack year history, quit in 2010) Former Smoker, Quit: May 19, 2009 Type Used: Cigarettes Physical Abuse Screen: No Sexual Abuse: No Recent Foreign Travel: No Contact w/other who traveled: No Recent Hopitalizations: Yes Recent Infectious Disease Expo: No Immunizations Up To Date Tetanus Booster (TDap): Unknown Pediatric: Yes Date of Pneumonia Vaccine: Aug 03, 2017 Date of Influenza Vaccine: Aug 03, 2017 Seasonal Allergies Seasonal Allergies: No Past Medical History Surgeries: Cardiac, CABG, Coronary Stent, Gallbladder, Hysterectomy Currently Using CPAP: No Currently Using BIPAP: No Cardiac: Coronary Artery Disease, Heart Attack, High Cholesterol, Hypertension Neurological: Stroke Reproductive: No Sexually Transmitted Disease: No HIV/AIDS: No Gastrointestinal: Gastroesophageal Reflux, Esophagitis, Hiatal Hernia Musculoskeletal: Arthritis, Chronic Back Pain Endocrine: Hypothyroidsim, Diabetes, Non-Insulin dep History of Blood Disorders: No Adverse Reaction to Blood Vela: No Family History Reviewed Nursing Family Hx Arthritis 19 FATHER Asthma 19 MOTHER Cardiovascular disease 19 MOTHER G8 BROTHER G8 SISTER G8 SISTER G8 SISTER Cataracts 19 FATHER Diabetes mellitus 19 MOTHER G8 BROTHER G8 SISTER G8 SISTER G8 SISTER Hypertension 19 MOTHER Myocardial infarction 19 MOTHER G8 SISTER G8 SISTER Parkinson's disease G8 BROTHER Prostate cancer 19 FATHER Respiratory disorder G8 BROTHER Thyroid disease 19 MOTHER Review of Systems Constitutional: No chills, No fever, No weight loss EENTM: nose congestion; No throat pain Respiratory: cough Gastrointestinal: abdominal pain (LLQ); No constipation, No diarrhea; nausea, vomiting Genitourinary: No dysuria; frequency Musculoskeletal: no symptoms reported Skin: no symptoms reported Physical Exam Physical Exam Vital Signs Vital Signs - First Documented 07/19/18 07/19/18 12:39 18:26 Temp 96.7 Pulse 63 Resp 16 B/P (MAP) 154/122 (133) Pulse Ox 95 O2 Delivery Room Air O2 Flow Rate 2.00 Capillary Refill : Less Than 3 Seconds Height, Weight, BMI Height: 5'0.00" Weight: 156lbs. 11.2oz. 71.193210wo; 30.6 BMI Method:Stated General Appearance: No Apparent Distress, WD/WN HEENT: Pharynx Normal Neck: No Lymphadenopathy (L), No Lymphadenopathy (R) Respiratory: Chest Non Tender, Lungs Clear, Normal Breath Sounds, No Accessory Muscle Use, No Respiratory Distress Cardiovascular: Regular Rate, Rhythm, No Edema Gastrointestinal: Normal Bowel Sounds, Non Tender, Soft Back: Normal Inspection, No CVA Tenderness Extremity: No Pedal Edema Neurologic/Psychiatric: Alert, Oriented x3 Skin: Normal Color, Warm/Dry Results Results/Procedures Labs Laboratory Tests 07/19/18 12:42 07/20/18 05:23 Patient resulted labs reviewed. Assessment/Plan Admission Diagnosis Nephrolithiasis Admission Status: Observation Assessment and Plan 73 year old male with history of DM, HTN, HLD, hypothyroidism that presented with LLQ pain, nausea and vomiting found to have a kidney stone. Nephrolithiasis: Currently without pain -Straining urine for stone -Flomax -Dilaudid and ketorolac for pain -Promethazine for nausea -IVF at 150 mL/hr CV -Consider resuming losartan -Consider resuming ASA and clopidogrel, nitro and mononitrate HLD -Resume atorvastatin DM -Will hold OVERWEAVER DM medications Dispo: Will monitor for stone passage and dc following. If no progress but pain control, will likely still dc potentially tomorrow. Diagnosis/Problems Diagnosis/Problems (1) Mixed hyperlipidemia Status: Chronic (2) COPD (chronic obstructive pulmonary disease) Status: Chronic (3) Kidney stone Status: Acute (4) CAD (coronary artery disease), ewiiaapaayp coronary artery Status: Chronic (5) HTN (hypertension) Status: Chronic (6) Hypothyroidism Status: Chronic (7) Non-insulin dependent type 2 diabetes mellitus Status: Chronic Clinical Quality Measures DVT/VTE Risk/Contraindication: Risk Factor Score Per Nursin RFS Level Per Nursing on Admit: 4+=Very High CHAPIS MARY DO 07/20/18 1156: History of Present Illness Source: patient Exam Limitations: no limitations Time Seen by Provider: 10:00 Supervisory Addendum Participated in pt care: history, MDM, physical Personally performed: exam, history, supervision of care Procedures: performed E&M service: agree Results interpretation: agree Past Phlheyy-Fuwgwq-Tgklqh Hx Family History Arthritis 19 FATHER Asthma 19 MOTHER Cardiovascular disease 19 MOTHER G8 BROTHER G8 SISTER G8 SISTER G8 SISTER Cataracts 19 FATHER Diabetes mellitus 19 MOTHER G8 BROTHER G8 SISTER G8 SISTER G8 SISTER Hypertension 19 MOTHER Myocardial infarction 19 MOTHER G8 SISTER G8 SISTER Parkinson's disease G8 BROTHER Prostate cancer 19 FATHER Respiratory disorder G8 BROTHER Thyroid disease 19 MOTHER Diagnosis/Problems Diagnosis/Problems (1) Kidney stone Status: Acute (2) Mixed hyperlipidemia Status: Chronic (3) COPD (chronic obstructive pulmonary disease) Status: Chronic (4) CAD (coronary artery disease), ewiiaapaayp coronary artery Status: Chronic (5) HTN (hypertension) Status: Chronic (6) Hypothyroidism Status: Chronic (7) Non-insulin dependent type 2 diabetes mellitus Status: Chronic GADIEL BOLES MEDICAL STUDENT Jul 20, 2018 09:30 CHAPIS MARY DO Jul 20, 2018 11:56
[2018-07-20] MEDS ORDERED: TAMS0.4C98 PO (11:36)
[2018-07-20] MEDS ORDERED: NITR-65 PO (11:36)
[2018-07-20] MEDS ORDERED: ACHD5005 PO (11:36)
[2018-07-20] MEDS ORDERED: NITROGLYCERIN 0.4 MG SL TABS BTL 25'S SL PRN (11:45)
[2018-07-20] MEDS ORDERED: NON-FORMULARY MEDICATION 1 EA EA (Acetaminophen 1,000 MG) PO PRN (11:45)
[2018-07-20] MEDS ORDERED: NITROGLYCERIN SL PRN (11:45)
[2018-07-20] MEDS ORDERED: ACETAMINOPHEN 500 MG TAB (TYLENOL) PO PRN (11:45)
[2018-07-20 12:39] VITALS: BP 128/62
--- NOTE | 2018-07-20 13:05 | Diagnostic Imaging Report ---
PROCEDURE: CT abdomen and pelvis with contrast. TECHNIQUE: Multiple contiguous axial images were obtained through the abdomen and pelvis after administration of intravenous contrast. INDICATION: Left abdominal pain and vomiting. COMPARISON: None. FINDINGS: Mild interstitial prominence in the lung bases, possibly related to atelectasis. There is mild cardiomegaly. There is diffuse low attenuation of hepatic parenchyma, likely reflecting hepatic steatosis. No focal lesion is seen. The spleen, pancreas, and adrenal glands are normal. The patient is status post cholecystectomy. There is no biliary ductal dilatation. The kidneys enhance symmetrically. There is a punctate 2 mm calculus at the ureterovesical junction. There is moderate left hydroureteronephrosis demonstrated. There is marked perinephric stranding on the left. There is no renal calculus or hydronephrosis on the left. The visualized right ureter is normal. There is a small hiatal hernia. There is no evidence of bowel wall thickening or obstruction. The appendix is not definitely visualized. There are no inflammatory changes adjacent to the cecum to suggest acute appendicitis. There is no pneumoperitoneum. There is no loculated collection. No enlarged lymph nodes are seen. There is mild atherosclerotic plaque of the abdominal aorta and its branch vessels, without aneurysmal dilatation. No evidence of venous thrombosis. The pelvic structures are unremarkable. No acute osseous abnormality. Mild degenerative change of the spine. IMPRESSION: Obstructing stone at the left ureterovesical junction measuring approximately 2 mm. There is moderate left hydroureteronephrosis and marked left perinephric stranding. Forniceal rupture is not excluded. Hepatic steatosis. Small hiatal hernia. Report was faxed to [facility] in the [facility] at 4:32 p.m., by ana (for PAVEL). Dictated by: Dictated on workstation # [id number]
[2018-07-20] MEDS ORDERED: NON-FORMULARY MEDICATION 1 EA EA (Ranolazine (Ranexa) 1,000 MG) PO SCH (21:00)
[2018-07-20] MEDS ORDERED: PANTOPRAZOLE 40 MG (PROTONIX) TAB PO SCH (21:00)
[2018-07-20] MEDS ORDERED: RANOLAZINE ER 500 MG TAB (RANEXA) PO SCH (21:00)
[2018-07-20] MEDS ORDERED: NON-FORMULARY MEDICATION 1 EA EA (Fenofibrate 160 MG) PO SCH (21:00)
[2018-07-20] MEDS ORDERED: FENOFIBRATE 134 MG (LOFIBRA) CAPSULE PO SCH (21:00)
[2018-07-20] MEDS ORDERED: ATORVASTATIN 40 MG (LIPITOR) TABLET PO SCH (21:00)
[2018-07-21] MEDS ORDERED: LEVOTHYROXINE 88 MCG (LEVOTHORID) TAB PO SCH (06:30)
[2018-07-21] MEDS ORDERED: LOSARTAN 50 MG (COZAAR) TAB PO SCH (09:00)
[2018-07-21] MEDS ORDERED: ISOSORBIDE MONONITRATE 60 MG (IMDUR) TAB PO SCH (09:00)
[2018-07-21] MEDS ORDERED: CLOPIDOGREL 75 MG (PLAVIX) TABLET PO SCH (09:00)
[2018-07-21] MEDS ORDERED: ASPIRIN E.C. 81 MG (ECOTRIN) TAB PO SCH (09:00)
[2018-07-21] MEDS ORDERED: NON-FORMULARY MEDICATION 1 EA EA (Losartan Potassium 50 MG) PO SCH (09:00)
== END 2018-07-20 11:38 | disposition home or self-care (01) ==
LOC: EDUNIT# 12:38 → ER 12:39 → 4TH 16:56 → UNDOADMOB 16:56 → 4TH 17:10 → UNDODISOB 07-20 13:00
PROVIDERS: ADMIT Family Medicine; ATTEND Family Medicine
DX: N20.0 Calculus of kidney (principal); R11.2 Nausea with vomiting, unspecified; E11.9 Type 2 diabetes mellitus without complications; J44.9 Chronic obstructive pulmonary disease, unspecified; I25.10 Atherosclerotic heart disease of native coronary artery without angina pectoris; E78.2 Mixed hyperlipidemia; I10 Essential (primary) hypertension; E03.9 Hypothyroidism, unspecified; K21.9 Gastro-esophageal reflux disease without esophagitis; K44.9 Diaphragmatic hernia without obstruction or gangrene; I25.2 Old myocardial infarction; Z86.73 Personal history of transient ischemic attack (TIA), and cerebral infarction without residual deficits; Z95.1 Presence of aortocoronary bypass graft; Z95.5 Presence of coronary angioplasty implant and graft; Z87.891 Personal history of nicotine dependence; Z79.82 Long term (current) use of aspirin; Z79.899 Other long term (current) drug therapy
CPT/HCPCS: 36415; 74177; 80053; 81000; 82150; 82962; 83605; 83690; 84484; 85025; 87040; 93005; 96361; 96374; 96375; 96376; G0378

== ENCOUNTER → 2018-07-22 | Outpatient (CLI) | payer MEDICARE, MEDICAID ==
[~2018-07-22] MED LIST changes: +ACHD5005 PO; +ASPI-983 PO; +LEVO88TA54 PO; +TAMS0.4C98 PO
--- NOTE | 2018-07-22 18:08 | Diagnostic Imaging Report ---
INDICATION: Left flank pain. COMPARISON: Exam interpreted in correlation with chest CT of 07/19/2018. EXAMINATION: Single view of the abdomen. FINDINGS: The left UVJ stone is not readily apparent, radiographically; however, this is a tiny stone and based upon its level it is likely projecting over pelvic osseous structures. No bowel obstruction. IMPRESSION: The left UVJ stone seen on CT is imperceptible at this radiograph. No adverse development found. Dictated by: Dictated on workstation # [id number]
== END ==
LOC: RAD 14:27
PROVIDERS: ATTEND Urology
DX: N20.1 Calculus of ureter (principal)
CPT/HCPCS: 74018

== ENCOUNTER 2019-01-13 22:39 | Emergency (ER) | payer MEDICARE, MEDICAID ==
[~2019-01-13] VITALS: Ht 152.4 cm; Wt 73.0 kg
[~2019-01-13 22:39] MED LIST changes: +LOSA50TA63 PO; -LOSA50TA7 PO
[2019-01-13 23:50] LABS: BASOPHILS # (AUTO) 0.1 10^3/uL (0.0-0.1); BASOPHILS % (AUTO) 1 % (0-10); EOSINOPHILS # (AUTO) 0.3 10^3/uL (0.0-0.3); EOSINOPHILS % (AUTO) 3 % (0-10); HEMATOCRIT 37 % (35-52); HEMOGLOBIN 11.8 G/DL (11.5-16.0); LYMPHOCYTES # (AUTO) 2.5 X 10^3 (1.0-4.0); LYMPHOCYTES % (AUTO) 29 % (12-44); MEAN CORPUSCULAR HEMOGLOBIN 29 PG (25-34); MEAN CORPUSCULAR HGB CONC 32 G/DL (32-36); MEAN CORPUSCULAR VOLUME 90 FL (80-99); MEAN PLATELET VOLUME 9.8 FL (7.4-10.4); MONOCYTES # (AUTO) 0.7 X 10^3 (0.0-1.0); MONOCYTES % (AUTO) 9 % (0-12); NEUTROPHILS # (AUTO) 5.1 X 10^3 (1.8-7.8); NEUTROPHILS % (AUTO) 59 % (42-75); PLATELET COUNT 356 10^3/uL (130-400); RED CELL DISTRIBUTION WIDTH 14.1 % (10.0-14.5); WHITE BLOOD COUNT 8.6 10^3/uL (4.3-11.0)
[2019-01-14 00:09] LABS: ALANINE AMINOTRANSFERASE 24 U/L (0-55); ALBUMIN 4.2 GM/DL (3.2-4.5); ALKALINE PHOSPHATASE 74 U/L (40-136); BILIRUBIN,TOTAL 0.2 MG/DL (0.1-1.0); BUN/CREATININE RATIO 22; CALCIUM 9.9 MG/DL (8.5-10.1); CARBON DIOXIDE 28 MMOL/L (21-32); CHLORIDE 102 MMOL/L (98-107); CREATININE SERUM 0.72 MG/DL (0.60-1.30); GFR ESTIMATED > 60; GLUCOSE 253 MG/DL (70-105); POTASSIUM 3.9 MMOL/L (3.6-5.0); SODIUM 141 MMOL/L (135-145); TOTAL PROTEIN 7.4 GM/DL (6.4-8.2)
--- NOTE | 2019-01-14 00:44 | ED Cough/URI ---
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 A&OX4. C/O SOB AND WEAKNESS. REPORTS ONSET OF SYMPTOMS TO BE APPROX X9 DAYS AGO. PT REPORTS ON THIS DAY SHE WAS SEEN @ [facility] AND DIAGNOSED WITH LT LOBE PNUEMONIA. PT STARTED ANTIBIOTIC TX @ APPROX 2000 THIS EVENING. PT STATES, "IM NOT GETTING ANY BETTER." PT DENIES FEVER OR CHILLS. PT NOTED TO BE WARM TO TOUCH AND DIAPHORETIC. PT DENIES PAIN. PT NOTED TO BE RESTLESS AND MOANING IN DISCOMFORT. INTERMITTENT MOIST COUGH NOTED. Sepsis Screen: No Definite Risk Source: patient Exam Limitations: no limitations History of Present Illness Date Seen by Provider: Jan 13, 2019 Time Seen by Provider: 23:13 Initial Comments Patient presents to ER by private conveyance with chief complaint she was seen at the clinic today had a chest x-ray and was told she had pneumonia. She was put on antibiotics which she took one dose of today. She said it made her nauseated when she took it. She just does not feel that she is getting any better. She denies any fevers or chills. She denies any pain. She has a nonproductive cough. No history of COPD or asthma. She uses 2 L of oxygen as needed or to sleep and she's been wearing it today. Nursing reports on room air she was 96%. Patient says she just feels ill, weak and thinks she might need admitted. She states they gave her a breathing treatment at the clinic but she didn't find it helped at all. Allergies and Home Medications Allergies Coded Allergies: fentanyl (Unverified Allergy, Intermediate, SEVERE NAUSEA/VOMITTING, ) Sulfa (Sulfonamide Antibiotics) (Verified Allergy, Unknown, 03/15/08) morphine (Verified Allergy, Unknown, 07/19/18) tramadol (Verified Allergy, Unknown, 09/01/08) Home Medications Acetaminophen 500 Mg Tablet, 1,000 MG PO Q6H PRN for PAIN-MILD, (Reported) TAKES 2 (500 MG) TABLETS Aspirin 81 Mg Tablet.dr, 81 MG PO DAILY, (Reported) Atorvastatin Calcium 40 Mg Tablet, 40 MG PO HS, (Reported) Clopidogrel Bisulfate 75 Mg Tablet, 75 MG PO DAILY, (Reported) Fenofibrate 160 Mg Tablet, 160 MG PO HS, (Reported) Hydrocodone Bit/Acetaminophen 1 Tab Tab, 1 TAB PO Q4-6HR PRN for PAIN-MODERATE Prescribed by: CHAPIS MARY on 07/20/18 1136 Isosorbide Mononitrate 60 Mg Tab, 60 MG PO DAILY, (Reported) Levothyroxine Sodium 88 Mcg Tablet, 88 MCG PO DAILY, (Reported) Losartan Potassium 50 Mg Tablet, 50 MG PO DAILY, (Reported) Nitrofurantoin Monohyd/M-Cryst 100 Mg Capsule, 1 TAB PO BID Prescribed by: CHAPIS MARY on 07/20/18 1136 Nitroglycerin 4.9 Gm [place], 1 SPRAY SL UD PRN for CHEST PAIN, (Reported) Pantoprazole Sodium 40 Mg Tablet.dr, 40 MG PO HS, (Reported) Ranolazine 1,000 Mg Tab.er.12h, 1,000 MG PO BID, (Reported) Tamsulosin HCl 0.4 Mg Cap, 0.4 MG PO DAILY@1800 Prescribed by: CHAPIS MARY on 07/20/18 1136 Patient Home Medication List Home Medication List Reviewed: Yes Review of Systems Review of Systems Constitutional: No chills, No fever; malaise EENTM: No ear discharge, No hearing loss Respiratory: cough; No phlegm, No short of breath, No wheezing Cardiovascular: No chest pain, No edema Gastrointestinal: No abdominal pain, No constipation, No diarrhea, No nausea Genitourinary: No dysuria Past Ekhypyt-Fhehzn-Dbwpjb Hx Patient Social History Alcohol Use: Denies Use Recreational Drug Use: No Smoking Status: Former Smoker Type Used: Cigarettes Former Smoker, Quit: May 19, 2009 2nd Hand Smoke Exposure: No Recent Foreign Travel: No Contact w/Someone Who Travel: No Recent Infectious Disease Expo: No Recent Hopitalizations: Yes Immunizations Up To Date Tetanus Booster (TDap): Unknown PED Vaccines UTD: Yes Date of Pneumonia Vaccine: Aug 03, 2017 Date of Influenza Vaccine: Aug 03, 2017 Seasonal Allergies Seasonal Allergies: No Past Medical History Surgeries: Yes (triple bypass, partial hyst, heart stent, heart cath,) Cardiac, CABG, Coronary Stent, Gallbladder, Hysterectomy Respiratory: Yes (O2 WITH ANY ACTIVITY AND AT HS) Pneumonia, COPD Currently Using CPAP: No Currently Using BIPAP: No Cardiac: Yes (BRADYCARDIA) Coronary Artery Disease, Heart Attack, High Cholesterol, Hypertension Neurological: Yes Stroke Reproductive Disorders: No Sexually Transmitted Disease: No HIV/AIDS: No Genitourinary: No Gastrointestinal: Yes Gastroesophageal Reflux, Esophagitis, Hiatal Hernia Musculoskeletal: Yes Arthritis, Chronic Back Pain Endocrine: Yes Hypothyroidsim, Diabetes, Non-Insulin dep HEENT: No Cancer: No Psychosocial: No Integumentary: No Blood Disorders: No Adverse Reaction/Blood Tranf: No Family Medical History Arthritis 19 FATHER Asthma 19 MOTHER Cardiovascular disease 19 MOTHER G8 BROTHER G8 SISTER G8 SISTER G8 SISTER Cataracts 19 FATHER Diabetes mellitus 19 MOTHER G8 BROTHER G8 SISTER G8 SISTER G8 SISTER Hypertension 19 MOTHER Myocardial infarction 19 MOTHER G8 SISTER G8 SISTER Parkinson's disease G8 BROTHER Prostate cancer 19 FATHER Respiratory disorder G8 BROTHER Thyroid disease 19 MOTHER Physical Exam Vital Signs - First Documented 01/13/19 22:46 Temp 98.0 Pulse 77 Resp 20 B/P (MAP) 134/74 (94) Pulse Ox 98 O2 Delivery Nasal Cannula O2 Flow Rate 2.00 Capillary Refill : Less Than 3 Seconds Height: 5'0" Weight: 161lbs. 11.2oz. [id number]; 30.6 BMI Method:Stated General Appearance: WD/WN, no apparent distress Eyes: Bilateral Eye Normal Inspection, Bilateral Eye PERRL, Bilateral Eye EOMI HEENT: PERRL/EOMI, normal ENT inspection, TMs normal, pharynx normal Neck: non-tender, full range of motion, supple, normal inspection Respiratory: chest non-tender, lungs clear, normal breath sounds, no respiratory distress, no accessory muscle use Cardiovascular: normal peripheral pulses, regular rate, rhythm Gastrointestinal: normal bowel sounds, non tender, soft Neurologic/Psychiatric: alert, normal mood/affect, oriented x 3 Skin: normal color, warm/dry Progress/Results/Core Measures Suspected Sepsis Recent Fever Within 48 Hours: No Infection Criteria Present: Documented Infection New/Unexplained Altered Menta: No Sepsis Screen: No Definite Risk SIRS Temperature:98.0 Pulse: 77 Respiratory Rate: 20 Laboratory Tests 01/13/19 23:35: White Blood Count 8.6 Blood Pressure 134 /74 Mean: 94 Laboratory Tests 01/13/19 23:35: Creatinine 0.72, Platelet Count 356, Total Bilirubin 0.2 Results/Orders Lab Results Laboratory Tests Test 01/13/19 23:35 Range/Units White Blood Count 8.6 4.3-11.0 10^3/uL Red Blood Count 4.07 L 4.35-5.85 10^6/uL Hemoglobin 11.8 11.5-16.0 G/DL Hematocrit 37 35-52 % Mean Corpuscular Volume 90 80-99 FL Mean Corpuscular Hemoglobin 29 25-34 PG Mean Corpuscular Hemoglobin Concent 32 32-36 G/DL Red Cell Distribution Width 14.1 10.0-14.5 % Platelet Count 356 130-400 10^3/uL Mean Platelet Volume 9.8 7.4-10.4 FL Neutrophils (%) (Auto) 59 42-75 % Lymphocytes (%) (Auto) 29 12-44 % Monocytes (%) (Auto) 9 0-12 % Eosinophils (%) (Auto) 3 0-10 % Basophils (%) (Auto) 1 0-10 % Neutrophils # (Auto) 5.1 1.8-7.8 X 10^3 Lymphocytes # (Auto) 2.5 1.0-4.0 X 10^3 Monocytes # (Auto) 0.7 0.0-1.0 X 10^3 Eosinophils # (Auto) 0.3 0.0-0.3 10^3/uL Basophils # (Auto) 0.1 0.0-0.1 10^3/uL Sodium Level 141 135-145 MMOL/L Potassium Level 3.9 3.6-5.0 MMOL/L Chloride Level 102 98-107 MMOL/L Carbon Dioxide Level 28 21-32 MMOL/L Anion Gap 11 5-14 MMOL/L Blood Urea Nitrogen 16 7-18 MG/DL Creatinine 0.72 0.60-1.30 MG/DL Estimat Glomerular Filtration Rate > 60 BUN/Creatinine Ratio 22 Glucose Level 253 H 70-105 MG/DL Calcium Level 9.9 8.5-10.1 MG/DL Corrected Calcium 9.7 8.5-10.1 MG/DL Total Bilirubin 0.2 0.1-1.0 MG/DL Aspartate Amino Transf (AST/SGOT) 38 H 5-34 U/L Alanine Aminotransferase (ALT/SGPT) 24 0-55 U/L Alkaline Phosphatase 74 40-136 U/L C-Reactive Protein High Sensitivity 1.77 H 0.00-0.50 MG/DL Total Protein 7.4 6.4-8.2 GM/DL Albumin 4.2 3.2-4.5 GM/DL Micro Results Microbiology 01/13/19 Influenza Types A,B Antigen (JENIFER) - Final, Complete My Orders Orders - BERENICE SALAZAR Chest Pa/Lat (2 View) (01/13/19 23:29) Cbc With Automated Diff (01/13/19 23:29) Comprehensive Metabolic Panel (01/13/19 23:29) Hs C Reactive Protein (01/13/19 23:29) Influenza A And B Antigens (01/13/19 23:29) Vital Signs/I&O 01/13/19 22:46 Temp 98.0 Pulse 77 Resp 20 B/P (MAP) 134/74 (94) Pulse Ox 98 O2 Delivery Nasal Cannula O2 Flow Rate 2.00 Capillary Refill : Less Than 3 Seconds Blood Pressure Mean: 94 Progress Note : Time: 00:42 Progress Note Influenza swab negative. Chest x-ray is negative for any infiltrates. Her labs are unremarkable. Vital signs are aseptic and her oxygenation even off of her oxygen is adequate. She has no wheezing or evidence of extra work of breathing. We'll recommend that she follow up with her primary care doctor tomorrow. Departure Impression Primary Impression: Bronchitis Disposition: 01 HOME, SELF-CARE Condition: Stable Departure-Patient Inst. Decision time for Depature: 00:43 Referrals: [facility] (PCP/Family) Primary Care Physician Patient Instructions: Acute Bronchitis, Adult (DC) Add. Discharge Instructions: Drink lots of fluids and use a humidifier. Use vapor rubs such as Vicks or Mentholatum. Vjtj-day-bkylkbo cough medicines may be helpful for your symptoms. Follow-up tomorrow by calling your primary care doctor and requesting an appointment for later this week or early next week if possible. Return to the ER if you're having shortness of breath, chest pain or other worrisome symptoms. All discharge instructions reviewed with patient and/or family. Voiced understanding. BERENICE SALAZAR Jan 14, 2019 00:44
[2019-01-14 00:50] VITALS: BP 147/72
--- NOTE | 2019-01-14 08:22 | Diagnostic Imaging Report ---
INDICATION: Shortness of air and cough. COMPARISON: 01/03/2018. FINDINGS: Stable borderline cardiomegaly status post CABG. Otherwise, mediastinal and hilar contours are normal. No airspace consolidation. Ill-defined right basilar nodular opacities are present. No pleural effusion or pneumothorax. IMPRESSION: 1. Right basilar ill-defined reticular nodular opacities could relate to an infectious bronchiolitis in the appropriate setting. Otherwise, this may represent summation shadow of the patient's normal vasculature and subjacent atelectasis. Dictated by: Dictated on workstation # [id number]
== END 2019-01-14 00:54 | disposition home or self-care (01) ==
LOC: EDUNIT# 22:39 → ER 22:40
DX: J44.9 Chronic obstructive pulmonary disease, unspecified (principal); I25.10 Atherosclerotic heart disease of native coronary artery without angina pectoris; E78.00 Pure hypercholesterolemia, unspecified; I10 Essential (primary) hypertension; I25.2 Old myocardial infarction; K21.9 Gastro-esophageal reflux disease without esophagitis; E11.9 Type 2 diabetes mellitus without complications; E03.9 Hypothyroidism, unspecified; Z87.19 Personal history of other diseases of the digestive system; Z86.73 Personal history of transient ischemic attack (TIA), and cerebral infarction without residual deficits; Z82.49 Family history of ischemic heart disease and other diseases of the circulatory system; Z88.2 Allergy status to sulfonamides; Z88.5 Allergy status to narcotic agent; Z88.6 Allergy status to analgesic agent; Z88.8 Allergy status to other drugs, medicaments and biological substances; Z79.82 Long term (current) use of aspirin; Z79.02 Long term (current) use of antithrombotics/antiplatelets; Z87.891 Personal history of nicotine dependence; Z95.1 Presence of aortocoronary bypass graft; Z98.890 Other specified postprocedural states; Z95.5 Presence of coronary angioplasty implant and graft; Z90.710 Acquired absence of both cervix and uterus; Z87.01 Personal history of pneumonia (recurrent)
CPT/HCPCS: 36415; 71046; 80053; 85025; 86141; 87804

== ENCOUNTER 2020-01-03 08:34 | Observation (INO) | payer MEDICARE, MEDICAID ==
[~2020-01-03] VITALS: Ht 152.4 cm; Wt 68.1 kg
[~2020-01-03 08:34] MED LIST changes: -TAMS0.4C98 PO; +TMSL.4C PO
[2020-01-03] MEDS ORDERED: NS IV 1000 ML 1,000 ML IV SCH (09:10)
[2020-01-03] MEDS ORDERED: ONDANSETRON 4 MG/2 ML (SDV) Z0FRAN IVP ONE (09:15)
[2020-01-03] MEDS ORDERED: FAMOTIDINE 20MG/2ML IV (PEPCID) IVP ONE (09:15)
[2020-01-03 09:23] LABS: BASOPHILS % (AUTO) 0 % (0-10); EOSINOPHILS % (AUTO) 0 % (0-10); HEMATOCRIT 39 % (35-52); HEMOGLOBIN 12.6 G/DL (11.5-16.0); LYMPHOCYTES # (AUTO) 1.7 X 10^3 (1.0-4.0); LYMPHOCYTES % (AUTO) 13 % (12-44); MEAN CORPUSCULAR HEMOGLOBIN 28 PG (25-34); MEAN CORPUSCULAR HGB CONC 32 G/DL (32-36); MEAN CORPUSCULAR VOLUME 88 FL (80-99); MONOCYTES # (AUTO) 0.9 X 10^3 (0.0-1.0); MONOCYTES % (AUTO) 7 % (0-12); NEUTROPHILS # (AUTO) 10.8 X 10^3 (1.8-7.8); NEUTROPHILS % (AUTO) 81 % (42-75); PLATELET COUNT 233 10^3/uL (130-400); RED CELL DISTRIBUTION WIDTH 14.9 % (10.0-14.5); WHITE BLOOD COUNT 13.5 10^3/uL (4.3-11.0)
--- NOTE | 2020-01-03 09:34 | NUR ---
Pt denies being allergic to Sulfa and is requesting drug to removed from allergy list. Sulfa removed from pt's allergy list at this time.
[2020-01-03 09:45] LABS: ALANINE AMINOTRANSFERASE 22 U/L (0-55); ALKALINE PHOSPHATASE 82 U/L (40-136); BILIRUBIN,TOTAL 0.4 MG/DL (0.1-1.0); BUN/CREATININE RATIO 18; CALCIUM 9.3 MG/DL (8.5-10.1); CARBON DIOXIDE 26 MMOL/L (21-32); CHLORIDE 104 MMOL/L (98-107); CREATININE SERUM 0.67 MG/DL (0.60-1.30); GFR ESTIMATED > 60; GLUCOSE 200 MG/DL (70-105); SODIUM 140 MMOL/L (135-145); TOTAL PROTEIN 7.3 GM/DL (6.4-8.2)
[2020-01-03 10:41] LABS: BILIRUBIN,URINE NEGATIVE (NEGATIVE); CLARITY,URINE CLEAR; COLOR,URINE YELLOW; GLUCOSE, URINE (UA) 1+ (NEGATIVE); KETONES,URINE NEGATIVE (NEGATIVE); LEUKOCYTE ESTERASE ,URINE NEGATIVE (NEGATIVE); NITRITE,URINE NEGATIVE (NEGATIVE); PROTEIN,URINE NEGATIVE (NEGATIVE)
[2020-01-03 10:49] LABS: BACTERIA,URINE NEGATIVE /HPF; WBC,URINE 0-2 /HPF
--- NOTE | 2020-01-03 11:30 | ED General ---
General Chief Complaint: Dizziness/Syncope Stated Complaint: N/V Nursing Triage Note: Pt to Ed via EMS. Pt c/o dizziness, nausea, vomiting, and diarrhea since yesterday. Nursing Sepsis Screen: No Definite Risk Source of Information: Patient, EMS Exam Limitations: No Limitations History of Present Illness Date Seen by Provider: Jan 03, 2020 Time Seen by Provider: 09:05 Initial Comments This 74-year-old woman presents to the emergency room via EMS with relatively sudden onset of nausea, vomiting and diarrhea. She also is dizzy and lightheade d. Symptoms started about 06:30. She feels chilled but does not have a fever. She is feeling very weak and not able to function. She has mild abdominal discomfort but denies other pain. She denies chest pain or new respiratory symptoms. She was to have routine follow-up with Dr. Campbell today and a CT scheduled for evaluation of COPD and possibly cancer screening. Her primary care provider is Dr. Yoli Mosqueda in the [facility]. Comorbidities include coronary artery disease with stents and CABG, COPD, and diabetes. Allergies and Home Medications Allergies Coded Allergies: fentanyl (Unverified Allergy, Intermediate, SEVERE NAUSEA/VOMITTING, 06/07/11) morphine (Verified Allergy, Unknown, 07/19/18) tramadol (Verified Allergy, Unknown, 09/01/08) Home Medications Acetaminophen 500 Mg Tablet, 1,000 MG PO Q6H PRN for PAIN-MILD, (Reported) TAKES 2 (500 MG) TABLETS Aspirin 81 Mg Tablet.dr, 81 MG PO DAILY, (Reported) Atorvastatin Calcium 40 Mg Tablet, 40 MG PO HS, (Reported) Clopidogrel Bisulfate 75 Mg Tablet, 75 MG PO DAILY, (Reported) Fenofibrate 160 Mg Tablet, 160 MG PO HS, (Reported) Hydrocodone Bit/Acetaminophen 1 Tab Tab, 1 TAB PO Q4-6HR PRN for PAIN-MODERATE Prescribed by: CHAPIS MARY on 07/20/18 1136 Isosorbide Mononitrate 60 Mg Tab, 60 MG PO DAILY, (Reported) Levothyroxine Sodium 88 Mcg Tablet, 88 MCG PO DAILY, (Reported) Losartan Potassium 50 Mg Tablet, 50 MG PO DAILY, (Reported) Nitrofurantoin Monohyd/M-Cryst 100 Mg Capsule, 1 TAB PO BID Prescribed by: CHAPIS AMRY on 07/20/18 1136 Nitroglycerin 4.9 Gm [place], 1 SPRAY SL UD PRN for CHEST PAIN, (Reported) Pantoprazole Sodium 40 Mg Tablet.dr, 40 MG PO HS, (Reported) Ranolazine 1,000 Mg Tab.er.12h, 1,000 MG PO BID, (Reported) Tamsulosin HCl 0.4 Mg Cap, 0.4 MG PO DAILY@1800 Prescribed by: CHAPIS MARY on 07/20/18 1136 Patient Home Medication List Home Medication List Reviewed: Yes Review of Systems Review of Systems Constitutional: see HPI EENTM: no symptoms reported Respiratory: see HPI Cardiovascular: see HPI Gastrointestinal: see HPI Genitourinary: no symptoms reported : No Musculoskeletal: no symptoms reported Skin: no symptoms reported Psychiatric/Neurological: No Symptoms Reported Hematologic/Lymphatic: No Symptoms Reported Immunological/Allergic: no symptoms reported Past Sfqeheo-Iqehds-Zartrl Hx Past Med/Social Hx: Reviewed Nursing Past Med/Soc Hx Patient Social History Alcohol Use: Denies Use Recreational Drug Use: No Type Used: Cigarettes Former Smoker, Quit: May 19, 2009 2nd Hand Smoke Exposure: No Recent Foreign Travel: No Contact w/Someone Who Travel: No Recent Infectious Disease Expo: No Recent Hopitalizations: Yes Immunizations Up To Date Tetanus Booster (TDap): Unknown PED Vaccines UTD: Yes Date of Pneumonia Vaccine: Aug 03, 2017 Date of Influenza Vaccine: Aug 03, 2017 Seasonal Allergies Seasonal Allergies: No Past Medical History Surgeries: Yes (triple bypass, partial hyst, heart stent, heart cath,) Cardiac, CABG, Coronary Stent, Gallbladder, Hysterectomy Respiratory: Yes (O2 WITH ANY ACTIVITY AND AT HS) Pneumonia, COPD Currently Using CPAP: No Currently Using BIPAP: No Cardiac: Yes (BRADYCARDIA) Coronary Artery Disease, Heart Attack, High Cholesterol, Hypertension Neurological: Yes Stroke Reproductive Disorders: No Sexually Transmitted Disease: No HIV/AIDS: No Genitourinary: No Gastrointestinal: Yes Gastroesophageal Reflux, Esophagitis, Hiatal Hernia Musculoskeletal: Yes Arthritis, Chronic Back Pain Endocrine: Yes Hypothyroidsim, Diabetes, Non-Insulin dep HEENT: No Cancer: No Psychosocial: No Integumentary: No Blood Disorders: No Adverse Reaction/Blood Tranf: No Family Medical History Reviewed Nursing Family Hx Arthritis 19 FATHER Asthma 19 MOTHER Cardiovascular disease 19 MOTHER G8 BROTHER G8 SISTER G8 SISTER G8 SISTER Cataracts 19 FATHER Diabetes mellitus 19 MOTHER G8 BROTHER G8 SISTER G8 SISTER G8 SISTER Hypertension 19 MOTHER Myocardial infarction 19 MOTHER G8 SISTER G8 SISTER Parkinson's disease G8 BROTHER Prostate cancer 19 FATHER Respiratory disorder G8 BROTHER Thyroid disease 19 MOTHER Physical Exam Vital Signs Vital Signs - First Documented 01/03/20 08:42 Temp 36.1 Pulse 63 Resp 24 B/P (MAP) 186/74 (111) Pulse Ox 97 O2 Delivery Room Air Capillary Refill : Less Than 3 Seconds Height, Weight, BMI Height: 5'0" Weight: 161lbs. 11.2oz. 73.027811fh; 30.00 BMI Method:Stated General Appearance: WD/WN, Mild Distress HEENT: PERRL/EOMI, Normal ENT Inspection, Other (oropharynx somewhat dry) Neck: Normal Inspection Respiratory: Lungs Clear, Normal Breath Sounds, No Accessory Muscle Use, No Respiratory Distress Cardiovascular: Regular Rate, Rhythm, No Edema, No Murmur, Normal Peripheral Pulses Gastrointestinal: Normal Bowel Sounds, Soft, Tenderness (mild upper central abdominal tenderness) Extremity: Normal Inspection, No Pedal Edema Neurologic/Psychiatric: Alert, Oriented x3, No Motor/Sensory Deficits, Normal Mood/Affect, batch dumper II-XII Norm as Tested Skin: Normal Color, Warm/Dry Progress/Results/Core Measures Suspected Sepsis Recent Fever Within 48 Hours: No Infection Criteria Present: None New/Unexplained Altered Menta: No Sepsis Screen: No Definite Risk SIRS Temperature: Pulse: 63 Respiratory Rate: 24 Laboratory Tests 01/03/20 09:15: White Blood Count 13.5H Blood Pressure 186 /74 Mean: 111 Laboratory Tests 01/03/20 09:15: Creatinine 0.67, Platelet Count 233, Total Bilirubin 0.4 Results/Orders Lab Results Laboratory Tests Test 01/03/20 09:15 01/03/20 10:25 Range/Units White Blood Count 13.5 H 4.3-11.0 10^3/uL Red Blood Count 4.48 4.35-5.85 10^6/uL Hemoglobin 12.6 11.5-16.0 G/DL Hematocrit 39 35-52 % Mean Corpuscular Volume 88 80-99 FL Mean Corpuscular Hemoglobin 28 25-34 PG Mean Corpuscular Hemoglobin Concent 32 32-36 G/DL Red Cell Distribution Width 14.9 H 10.0-14.5 % Platelet Count 233 130-400 10^3/uL Mean Platelet Volume 10.0 7.4-10.4 FL Neutrophils (%) (Auto) 81 H 42-75 % Lymphocytes (%) (Auto) 13 12-44 % Monocytes (%) (Auto) 7 0-12 % Eosinophils (%) (Auto) 0 0-10 % Basophils (%) (Auto) 0 0-10 % Neutrophils # (Auto) 10.8 H 1.8-7.8 X 10^3 Lymphocytes # (Auto) 1.7 1.0-4.0 X 10^3 Monocytes # (Auto) 0.9 0.0-1.0 X 10^3 Eosinophils # (Auto) 0.0 0.0-0.3 10^3/uL Basophils # (Auto) 0.0 0.0-0.1 10^3/uL Sodium Level 140 135-145 MMOL/L Potassium Level 4.0 3.6-5.0 MMOL/L Chloride Level 104 98-107 MMOL/L Carbon Dioxide Level 26 21-32 MMOL/L Anion Gap 10 5-14 MMOL/L Blood Urea Nitrogen 12 7-18 MG/DL Creatinine 0.67 0.60-1.30 MG/DL Estimat Glomerular Filtration Rate > 60 BUN/Creatinine Ratio 18 Glucose Level 200 H 70-105 MG/DL Calcium Level 9.3 8.5-10.1 MG/DL Corrected Calcium 9.3 8.5-10.1 MG/DL Total Bilirubin 0.4 0.1-1.0 MG/DL Aspartate Amino Transf (AST/SGOT) 20 5-34 U/L Alanine Aminotransferase (ALT/SGPT) 22 0-55 U/L Alkaline Phosphatase 82 40-136 U/L C-Reactive Protein High Sensitivity 2.16 H 0.00-0.50 MG/DL Total Protein 7.3 6.4-8.2 GM/DL Albumin 4.0 3.2-4.5 GM/DL Urine Color YELLOW Urine Clarity CLEAR Urine pH 6.0 5-9 Urine Specific [place] >=1.030 1.016-1.022 Urine Protein NEGATIVE NEGATIVE Urine Glucose (UA) 1+ H NEGATIVE Urine Ketones NEGATIVE NEGATIVE Urine Nitrite NEGATIVE NEGATIVE Urine Bilirubin NEGATIVE NEGATIVE Urine Urobilinogen 0.2 < = 1.0 MG/DL Urine Leukocyte Esterase NEGATIVE NEGATIVE Urine RBC (Auto) NEGATIVE NEGATIVE Urine RBC NONE /HPF Urine WBC 0-2 /HPF Urine Squamous Epithelial Cells 2-5 /HPF Urine Crystals NONE /LPF Urine Bacteria NEGATIVE /HPF Urine Casts NONE /LPF Urine Mucus NEGATIVE /LPF Urine Culture Indicated NO Micro Results Microbiology 01/03/20 Influenza Types A,B Antigen (JENIFER) - Final, Complete My Orders Orders - LARA DOYLE MD Cbc With Automated Diff (01/03/20 09:04) Comprehensive Metabolic Panel (01/03/20 09:04) Hs C Reactive Protein (01/03/20 09:04) Ua Culture If Indicated (01/03/20 09:04) Influenza A And B Antigens (01/03/20 09:04) Ondansetron Injection (Zofran Injectio (01/03/20 09:15) Famotidine Injection (Pepcid Injection) (01/03/20 09:15) Ed Iv/Invasive Line Start (01/03/20 09:10) Ns Iv 1000 Ml (Sodium Chloride 0.9%) (01/03/20 09:10) Medications Given in ED Current Medications Medications Dose Ordered Sig/Kirsten Route Start Time Stop Time Status Last Admin Dose Admin Famotidine 20 mg ONCE ONCE IVP 01/03/20 09:15 01/03/20 09:16 DC 01/03/20 09:22 20 MG Ondansetron HCl 8 mg ONCE ONCE IVP 01/03/20 09:15 01/03/20 09:16 DC 01/03/20 09:20 8 MG Vital Signs/I&O 01/03/20 08:42 Temp 36.1 Pulse 63 Resp 24 B/P (MAP) 186/74 (111) Pulse Ox 97 O2 Delivery Room Air Capillary Refill : Less Than 3 Seconds Blood Pressure Mean: 111 Progress Note : Time: 11:28 Progress Note Patient was treated with Zofran, Pepcid, and a liter of IV fluid. Influenza screen was positive. Patient is feeling somewhat better but states she has ser ious concerns about being able to function at home given her weakness, age, and relative lack of support at home. She also lives with her granddaughter and great grandbaby at home who is only one year old. In her current state she does not think she could get up on her own to eat and use the restroom. She requests admission. I discussed the case with Dr. Barlow who is agreeable. Departure Communication (Admissions) Time/Spoke to Admitting Phy: 11:18 Dr. Barlow Impression Primary Impression: Influenza B Additional Impressions: Nausea vomiting and diarrhea Weakness Dizziness Disposition: ADMITTED INPATIENT Condition: Improved Admissions Decision to Admit Reason: Admit from ER (General) Decision to Admit/Date: Jan 03, 2020 Time/Decision to Admit Time: 11:15 Departure-Patient Inst. Referrals: [facility] (PCP/Family) Primary Care Physician LARA DOYLE MD Jan 03, 2020 11:30
[2020-01-03] MEDS ORDERED: PATIENT MAY USE OWN MEDS, ALL PO SCH (11:45)
[2020-01-03 12:20] VITALS: BP 180/80
--- NOTE | 2020-01-03 12:20 | NUR ---
VINAY KAY admitted to room 428-1, with an admitting diagnosis of N/V/D, FLU-B, on 01/03/20 from ED via W/C, accompanied by DAUGHTER AND ED STAFF. VINAY KAY introduced to surroundings, call light, bed controls, phone, TV, temperature control, lights, meal times, smoking policy, visitor policy, side rail policy, bathrooms and showers. Patient Rights given to patient in the handbook. VINAY KAY verbalizes understanding that [facility] is not responsible for the loss or damage to any personal effects or valuables that are kept in the patients possession during their hospitalization.
[2020-01-03] MEDS: ENOXAPARIN 40 MG/0.4 ML (LOVENOX) SYR SC SCH (12:51)
[2020-01-03] MEDS: NS IV 1000 ML 1,000 ML IV SCH ×2 (12:51→20:59)
[2020-01-03] MEDS: OSELTAMIVIR 30 MG (TAMIFLU) CAPSULE PO SCH ×2 (12:51→20:59)
[2020-01-03] MEDS ORDERED: ONDANSETRON 4 MG/2 ML (SDV) Z0FRAN ONE (13:27)
[2020-01-03] MEDS ORDERED: ONDANSETRON 4 MG/2 ML (SDV) Z0FRAN IVP PRN (13:30)
--- NOTE | 2020-01-03 14:39 | History & Physical ---
HPI History of Present Illness: 74 yo female came to ER after relatively sudden onset of severe dizziness, nausea, vomiting and diarrhea this morning. She states she did not feel well last night and had sore throat yesterday, but hoped she would feel better in the morning. She has had mild cough. Source: patient Exam Limitations: no limitations Date seen by provider: Jan 03, 2020 Time Seen by Provider: 14:00 Attending Physician Dylan Barlow MD PCP Center/[facility] Consult Date of Admission Jan 03, 2020 at 11:22 Home Medications Home Medications Reviewed patient Home Medication Reconciliation performed by pharmacy medication reconciliations x ray service technician and/or nursing. Patients Allergies have been reviewed. Allergies Coded Allergies: fentanyl (Unverified Allergy, Intermediate, SEVERE NAUSEA/VOMITTING, 06/07/11) morphine (Verified Allergy, Unknown, 07/19/18) tramadol (Verified Allergy, Unknown, 09/01/08) RWT-Ramiya-Miiqfy Hx Patient Social History Alcohol Use: Denies Use Recreational Drug Use: No Former smoker/When Quit: Jan 22, 2008 Type Used: Cigarettes 2nd Hand Smoke Exposure: No Recent Foreign Travel: No Contact w/other who traveled: No Recent Hopitalizations: Yes Recent Infectious Disease Expo: No Immunizations Up To Date Tetanus Booster (TDap): Unknown Date of Pneumonia Vaccine: Aug 03, 2017 Date of Influenza Vaccine: Aug 03, 2017 Past Medical History COPD with supplemental oxygen use 1-2 L baseline NIDDM HLD CAD s/p bypass x 3 Hypothyroidism HTN SurgHx: CABG Cataracts Cholecystectomy Family Medical History Family History: Arthritis 19 FATHER Asthma 19 MOTHER Cardiovascular disease 19 MOTHER G8 BROTHER G8 SISTER G8 SISTER G8 SISTER Cataracts 19 FATHER Diabetes mellitus 19 MOTHER G8 BROTHER G8 SISTER G8 SISTER G8 SISTER Hypertension 19 MOTHER Myocardial infarction 19 MOTHER G8 SISTER G8 SISTER Parkinson's disease G8 BROTHER Prostate cancer 19 FATHER Respiratory disorder G8 BROTHER Thyroid disease 19 MOTHER Review of Systems (CH[facility]) Constitutional: dizziness, malaise EENTM: throat pain Respiratory: cough Cardiovascular: No chest pain Gastrointestinal: No abdominal pain; diarrhea, nausea, vomiting Genitourinary: No dysuria Musculoskeletal: no symptoms reported Skin: No rash Psychiatric/Neurological: No Symptoms Reported Reviewed Test Results Reviewed Test Results Lab Laboratory Tests Test 01/03/20 09:15 01/03/20 10:25 Range/Units White Blood Count 13.5 H 4.3-11.0 10^3/uL Red Blood Count 4.48 4.35-5.85 10^6/uL Hemoglobin 12.6 11.5-16.0 G/DL Hematocrit 39 35-52 % Mean Corpuscular Volume 88 80-99 FL Mean Corpuscular Hemoglobin 28 25-34 PG Mean Corpuscular Hemoglobin Concent 32 32-36 G/DL Red Cell Distribution Width 14.9 H 10.0-14.5 % Platelet Count 233 130-400 10^3/uL Mean Platelet Volume 10.0 7.4-10.4 FL Neutrophils (%) (Auto) 81 H 42-75 % Lymphocytes (%) (Auto) 13 12-44 % Monocytes (%) (Auto) 7 0-12 % Eosinophils (%) (Auto) 0 0-10 % Basophils (%) (Auto) 0 0-10 % Neutrophils # (Auto) 10.8 H 1.8-7.8 X 10^3 Lymphocytes # (Auto) 1.7 1.0-4.0 X 10^3 Monocytes # (Auto) 0.9 0.0-1.0 X 10^3 Eosinophils # (Auto) 0.0 0.0-0.3 10^3/uL Basophils # (Auto) 0.0 0.0-0.1 10^3/uL Sodium Level 140 135-145 MMOL/L Potassium Level 4.0 3.6-5.0 MMOL/L Chloride Level 104 98-107 MMOL/L Carbon Dioxide Level 26 21-32 MMOL/L Anion Gap 10 5-14 MMOL/L Blood Urea Nitrogen 12 7-18 MG/DL Creatinine 0.67 0.60-1.30 MG/DL Estimat Glomerular Filtration Rate > 60 BUN/Creatinine Ratio 18 Glucose Level 200 H 70-105 MG/DL Calcium Level 9.3 8.5-10.1 MG/DL Corrected Calcium 9.3 8.5-10.1 MG/DL Total Bilirubin 0.4 0.1-1.0 MG/DL Aspartate Amino Transf (AST/SGOT) 20 5-34 U/L Alanine Aminotransferase (ALT/SGPT) 22 0-55 U/L Alkaline Phosphatase 82 40-136 U/L C-Reactive Protein High Sensitivity 2.16 H 0.00-0.50 MG/DL Total Protein 7.3 6.4-8.2 GM/DL Albumin 4.0 3.2-4.5 GM/DL Urine Color YELLOW Urine Clarity CLEAR Urine pH 6.0 5-9 Urine Specific [place] >=1.030 1.016-1.022 Urine Protein NEGATIVE NEGATIVE Urine Glucose (UA) 1+ H NEGATIVE Urine Ketones NEGATIVE NEGATIVE Urine Nitrite NEGATIVE NEGATIVE Urine Bilirubin NEGATIVE NEGATIVE Urine Urobilinogen 0.2 < = 1.0 MG/DL Urine Leukocyte Esterase NEGATIVE NEGATIVE Urine RBC (Auto) NEGATIVE NEGATIVE Urine RBC NONE /HPF Urine WBC 0-2 /HPF Urine Squamous Epithelial Cells 2-5 /HPF Urine Crystals NONE /LPF Urine Bacteria NEGATIVE /HPF Urine Casts NONE /LPF Urine Mucus NEGATIVE /LPF Urine Culture Indicated NO Physical Exam-([facility]) Physical Exam Vital Signs VS - Last 72 Hours, by Label 01/03/20 01/03/20 01/03/20 08:42 12:08 12:20 Temp 36.1 36.2 36.0 Pulse 63 62 63 Resp 24 23 20 B/P (MAP) 186/74 (111) 147/65 (111) 180/80 Pulse Ox 97 95 93 O2 Delivery Room Air Room Air Room Air Capillary Refill : Less Than 3 Seconds General Appearance: other (appears ill) Respiratory: lungs clear, normal breath sounds Cardiovascular: regular rate, rhythm, no murmur Gastrointestinal: normal bowel sounds, non tender, soft Extremities: no pedal edema Neurologic/Psychiatric: alert, normal mood/affect Skin: normal color, warm/dry Assessment/Plan Assessment/Plan Admission Status: Observation (1) Nausea vomiting and diarrhea Status: Acute Assessment & Plan: IVF, antiemetics (2) Dizziness Status: Acute Assessment & Plan: Suspect infection related, will try meclizine as she requests symptomatic treatment (3) Influenza B Status: Acute Assessment & Plan: Oseltamavir (4) Non-insulin dependent type 2 diabetes mellitus Status: Chronic Assessment & Plan: Diabetic diet, sliding scale insulin (5) CAD (coronary artery disease), [place] coronary artery Status: Chronic Assessment & Plan: Resume home medications Qualifiers: Qualified Codes: I25.10 - Atherosclerotic heart disease of [place] coronary artery without angina pectoris (6) HTN (hypertension) Status: Chronic Assessment & Plan: Resume home medications Qualifiers: Qualified Codes: I10 - Essential (primary) hypertension (7) Mixed hyperlipidemia Status: Chronic (8) Hypothyroidism Status: Chronic (9) COPD (chronic obstructive pulmonary disease) Status: Chronic Assessment & Plan: Stable on room air, no evidence of exacerbation currently. (10) DVT prophylaxis Status: Acute Assessment & Plan: Enoxaparin DYLAN BARLOW MD Jan 03, 2020 14:39
[2020-01-03 16:00] VITALS: BP 151/67
[2020-01-03] MEDS: inSUlin ASPART (NovoLOG) 1 UNIT/0.01 ML (CHARGE PER UNIT) SC SCH ×2 (16:22→22:17)
[2020-01-03] MEDS ORDERED: SITA1TAB6 PO (17:48)
[2020-01-03 20:00] VITALS: BP 170/72
[2020-01-03] MEDS: ACETAMINOPHEN 325 MG TABLET PO PRN (21:08)
[2020-01-04] VITALS (7 sets, daily range): BP systolic 116–189; BP diastolic 53–73
[2020-01-04 05:42] LABS: HEMOGLOBIN 11.2 G/DL (11.5-16.0); MEAN PLATELET VOLUME 10.6 FL (7.4-10.4); WHITE BLOOD COUNT 8.3 10^3/uL (4.3-11.0)
[2020-01-04] MEDS: NS IV 1000 ML 1,000 ML IV SCH ×4 (05:44→23:05)
[2020-01-04] MEDS: inSUlin ASPART (NovoLOG) 1 UNIT/0.01 ML (CHARGE PER UNIT) SC SCH ×4 (06:22→20:23)
[2020-01-04] MEDS: ISOSORBIDE MONONITRATE 60 MG (IMDUR) TAB PO SCH (07:59)
[2020-01-04] MEDS: OSELTAMIVIR 30 MG (TAMIFLU) CAPSULE PO SCH ×2 (07:59→20:23)
[2020-01-04] MEDS: LOSARTAN 50 MG (COZAAR) TAB PO SCH (07:59)
[2020-01-04] MEDS: CLOPIDOGREL 75 MG (PLAVIX) TABLET PO SCH (07:59)
[2020-01-04] MEDS: ASPIRIN E.C. 81 MG (ECOTRIN) TAB PO SCH (08:00)
[2020-01-04] MEDS: ACETAMINOPHEN 325 MG TABLET PO PRN ×2 (09:25→23:06)
--- NOTE | 2020-01-04 10:16 | Progress Note ---
Subjective Subjective/Events-last exam Afebrile, still very dizzy, doesn't feel like she can stand up without falling over. Is nauseous but has not continued to vomit. She notes today that she has intermittent dizziness and takes some medicine for it at home. Denies earache. She has frontal headache that is severe and new, although she does have mild headaches at times. Objective Exam Last Set of Vital Signs Vital Signs Date Time Temp Pulse Resp B/P (MAP) Pulse Ox O2 Delivery O2 Flow Rate FiO2 01/04/20 08:00 94 Room Air 01/04/20 08:00 36.9 67 20 189/66 (107) Capillary Refill : NONE I&O Intake and Output 01/04/20 00:00 Intake Total 2120 ml Output Total 2 ml Balance 2118 ml Intake Oral 1120 ml IV Total 1000 ml Output Urine Total 2 ml # Voids 2 # Bowel Movements 1 Daily Weight Change No No General: Alert, No Acute Distress HEENT: EOMI Neuro: Normal Speech, Strength at 5/5 X4 Ext, Cranial Nerves 3-12 NL Psych/Mental Status: Mental Status NL Results/Procedures Lab Laboratory Tests 01/03/20 10:25: Urine Color YELLOW, Urine Clarity CLEAR, Urine pH 6.0, Urine Specific [place] >=1.030, Urine Protein NEGATIVE, Urine Glucose (UA) 1+H, Urine Ketones NEGATIVE, Urine Nitrite NEGATIVE, Urine Bilirubin NEGATIVE, Urine Urobilinogen 0.2, Urine Leukocyte Esterase NEGATIVE, Urine RBC (Auto) NEGATIVE, Urine RBC NONE, Urine WBC 0-2, Urine Squamous Epithelial Cells 2-5, Urine Crystals NONE, Urine Bacteria NEGATIVE, Urine Casts NONE, Urine Mucus NEGATIVE, Urine Culture Indicated NO 01/03/20 16:20: Glucometer 148H 01/03/20 22:14: Glucometer 134H 01/04/20 04:47: White Blood Count 8.3, Red Blood Count 3.94L, Hemoglobin 11.2L, Hematocrit 35, Mean Corpuscular Volume 90, Mean Corpuscular Hemoglobin 28, Mean Corpuscular Hemoglobin Concent 32, Red Cell Distribution Width 15.0H, Platelet Count 201, Mean Platelet Volume 10.6H 01/04/20 06:06: Glucometer 123H Microbiology 01/03/20 Influenza Types A,B Antigen (JENIFER) - Final, Complete Assessment/Plan Assessment/Plan (1) Nausea vomiting and diarrhea Status: Resolved Assessment & Plan: IVF, antiemetics (2) Dizziness Status: Chronic Assessment & Plan: Suspect infection related, will try meclizine as she requests symptomatic treatment 3 note that she has chronic issues, but worsened now, likely due to infection, resume home meclizine and monitor, work with PT. (3) Influenza B Status: Acute Assessment & Plan: Oseltamavir (4) Non-insulin dependent type 2 diabetes mellitus Status: Chronic Assessment & Plan: Diabetic diet, sliding scale insulin (5) CAD (coronary artery disease), [place] coronary artery Status: Chronic Assessment & Plan: Resume home medications Qualifiers: Qualified Codes: I25.10 - Atherosclerotic heart disease of [place] coronary artery without angina pectoris (6) HTN (hypertension) Status: Chronic Assessment & Plan: Resume home medications Qualifiers: Qualified Codes: I10 - Essential (primary) hypertension (7) Mixed hyperlipidemia Status: Chronic (8) Hypothyroidism Status: Chronic (9) COPD (chronic obstructive pulmonary disease) Status: Chronic Assessment & Plan: Stable on room air, no evidence of exacerbation currently. (10) DVT prophylaxis Status: Acute Assessment & Plan: Enoxaparin Clinical Quality Measures DVT/VTE Risk/Contraindication: Risk Factor Score Per Nursin RFS Level Per Nursing on Admit: 2=Moderate DYLAN OLIVERA MD Jan 04, 2020 10:16
[2020-01-04] MEDS ORDERED: LEVO112T55 PO (10:31)
[2020-01-04] MEDS ORDERED: MECL-172 PO (10:32)
[2020-01-04] MEDS ORDERED: FLUT16SP22 NSEACH (10:33)
--- NOTE | 2020-01-04 10:34 | NUR ---
SPOKE WITH PT (SHE HAD MED LIST ON HER PHONE) WENT THRU THE EXT MED HISTORY AND CALLED [facility] TO COMPLETE THE MED REC. ALL MEDICATIONS ON HER MED LIST MATCHED THE EXT MED HISTORY AND PT WAS ABLE TO TELL ME HOW/WHEN SHE TAKES EACH MED. ON THE MED REC IT SHOWED NITRO SPRAY- WHEN I ASKED THE PT SHE SAYS SHE NOW USES THE TABLETS TO CONTROL CHEST PAIN. I CALLED [facility] TO GET A FILL DATE AND THEY HAD NOT FILLED IT SINCE 12-27-2018. DUE TO THE PAST DUE FILL I DID NOT INCLUDE THIS ON THE MED REC, OTC MEDS: TYLENOL MECLIZINE ASPIRIN 81
[2020-01-04] MEDS ORDERED: MECLIZINE 25 MG (ANTIVERT) TAB PO PRN (11:00)
[2020-01-04] MEDS: ENOXAPARIN 40 MG/0.4 ML (LOVENOX) SYR SC SCH (12:31)
--- NOTE | 2020-01-04 14:57 | Physical Therapy Evaluation ---
PT Evaluation-General Medical Diagnosis Admission Date Jan 03, 2020 at 11:22 Medical Diagnosis: Influenza B Onset Date: Jan 03, 2020 Therapy Diagnosis Therapy Diagnosis: Debility Height/Weight Height (Feet): 5 Height (Inches): 0 Weight (Pounds): 161 Weight (Ounces): 11.2 Precautions Precautions/Isolations: Droplet Isolation, Fall Prevention, Standard Precautions Weight Bear Status Right Lower Extremity: Right Weight Bearing/Tolerated Left Lower Extremity: Left Weight Bearing/Tolerated Referral Physician: Cain Reason for Referral: Evaluation/Treatment Medical History Pertinent Medical History: Arthritis, CABG, CAD, COPD, DM, GERD, HTN, Hypothroidism, [place], Smoking Current History Patient presented via EMS with nausea, vomiting, diarrhea, dizzy, and lightheaded. Reviewed History: Yes Social History Home: Single Level Current Living Status: Other Family (Granddaughter) Entry Into Home: Stairs With Railing PT Steps Into Home: 5 Prior Prior Level of Function SCALE: Activities may be completed with or without assistive devices. 0-Ukqxdnyzwq-llqjnta completes the activity by him/herself with no assistance from a helper. 5-Set-up or Clean-up Assistance-helper sets up or cleans up; patient completes activity. [place] assists only prior to or following the activity. 4-Supervision or Touching Assistance-helper provides verbal cues and/or touching/steadying and/or contact guard assistance as patient completes activity. Assistance may be provided throughout the activity or intermittently. 3-Partial/Moderate Assistance-helper does LESS THAN HALF the effort. [place] lifts, holds or supports trunk or limbs, but provides less than half the effort. 2-Substantial/Maximal Assistance-helper does MORE THAN HALF the effort. [place] lifts or holds trunk or limbs and provides more than half the effort. 7-Bfpzdslhs-gyujug does ALL the effort. Patient does none of the effort to complete the activity. Or, the assistance of 2 or more helpers is required for the patient to complete the activity. If activity was not attempted, code reason: 7-Patient Refused. 9-Not Applicable-not attempted and the patient did not perform the activity before the current illness, exacerbation or injury. 10-Not Attempted due to Environmental Limitations-(lack of equipment, weather restraints, etc.). 88-Not Attempted due to Medical Conditions or Safety Concerns. Bed Mobility: 6 Transfers (B,C,W/C): 6 Gait: 6 Stairs: 6 Indoor Mobility (Ambulation): Independent Stairs: Independent Prior Devices Use: None PT Evaluation-Current Subjective Patient is agreeable to therapy at this time. Pain Numeric Pain Scale: 0-No Pain Objective Patient Orientation: Person, Place ROM/Strength ROM Lower Extremities WNL BLE Strength Lower Extremities 4+ / 5 BLE Integumentary/Posture Integumentary See nursing notes. Neuromuscular (Tone, Coordination, Reflexes) Appears grossly intact Sensory Vision: Functional Hearing: Functional Sensation Right Lower Extremit: Intact Sensation Left Lower Extremity: Intact Transfers Roll Left to Right (QC): 6 Sit to Lying (QC): 6 Lying to Sitting/Side of Bed(Q: 6 Sit to Stand (QC): 6 Gait Does the Patient Walk?: Yes Mode of Locomotion: Walk Anticipated Mode of Locomotion: Walk Walk 10 feet (QC): 4 Walk 50 ft with 2 Turns(QC): 4 Walk 150 ft (QC): 4 Distance: 150' Gait Assistive Device: None Comments/Gait Description SBA. Patient ambulated around room due to droplet precautions. Patient uses wall and furniture for support while walking, refused walker. Wheelchair Training Does the Pt Use a Wheelchair?: No Balance Sitting Static: Good Sitting Dynamic: Good Standing Static: Good Standing Dynamic: Good Assessment/Needs Patient states she has already been up and walking in the room to get to the bathroom. Patient is stable during ambulation, she uses wall and furniture around the room for support because she refuses to use a walker. Patient is not a candidate for skilled services at this time due to already being IND in her room. Rehab Potential: Good PT Plan Problem List Problem List: Activity Tolerance, Functional Strength, Safety, Balance, Gait, Transfer, Bed Mobility, ROM Treatment/Plan Treatment Plan: Discontinue PT Treatment Duration: Jan 04, 2020 Frequency: 1 time per week Estimated Hrs Per Day: .25 hour per day Patient and/or Family Agrees t: Yes Safety Risks/Education Patient Education: Gait Training, Transfer Techniques Teaching Recipient: Patient Teaching Methods: Demonstration, Discussion Discharge Recommendations Therapy Discharge Recommendati: Home & Family Time/GCodes Time In: 1414 Time Out: 1425 Total Billed Treatment Time: 11 Total Billed Treatment 1 visit EVL 11 VERO SHERWOOD PT Jan 04, 2020 14:57
[2020-01-04] MEDS: metFORMIN 500 MG (GLUCOPHAGE) TAB PO SCH (17:21)
[2020-01-04] MEDS: LINAGLIPTIN (TRADJENTA) 5 MG TABLET PO SCH (17:21)
[2020-01-04] MEDS: RANOLAZINE ER 500 MG TAB (RANEXA) PO SCH (20:24)
[2020-01-04] MEDS ORDERED: FENOFIBRATE 134 MG (LOFIBRA) CAPSULE PO SCH (21:00)
[2020-01-05 03:45] VITALS: BP 137/63
[2020-01-05] MEDS: inSUlin ASPART (NovoLOG) 1 UNIT/0.01 ML (CHARGE PER UNIT) SC SCH ×2 (06:30→11:22)
[2020-01-05] MEDS: metFORMIN 500 MG (GLUCOPHAGE) TAB PO SCH (06:30)
[2020-01-05] MEDS: LINAGLIPTIN (TRADJENTA) 5 MG TABLET PO SCH (06:30)
[2020-01-05] MEDS: NS IV 1000 ML 1,000 ML IV SCH (06:34)
[2020-01-05 08:00] VITALS: BP 192/72
[2020-01-05] MEDS ORDERED: PANTOPRAZOLE 40 MG (PROTONIX) TAB PO SCH (09:00)
[2020-01-05] MEDS: ISOSORBIDE MONONITRATE 60 MG (IMDUR) TAB PO SCH (09:31)
[2020-01-05] MEDS: CLOPIDOGREL 75 MG (PLAVIX) TABLET PO SCH (09:31)
[2020-01-05] MEDS: LOSARTAN 50 MG (COZAAR) TAB PO SCH (09:31)
[2020-01-05] MEDS: ASPIRIN E.C. 81 MG (ECOTRIN) TAB PO SCH (09:31)
[2020-01-05] MEDS: RANOLAZINE ER 500 MG TAB (RANEXA) PO SCH (09:31)
[2020-01-05] MEDS: OSELTAMIVIR 30 MG (TAMIFLU) CAPSULE PO SCH (09:31)
[2020-01-05] MEDS: ACETAMINOPHEN 325 MG TABLET PO PRN (09:41)
[2020-01-05] MEDS ORDERED: OSEL30CA PO (10:46)
--- NOTE | 2020-01-05 10:49 | Discharge Summary ---
Discharge Summary Hospital Course Problems/Diagnosis: (1) Nausea vomiting and diarrhea Status: Resolved Resolution Date/Time: 01/04/20 @ 11:23 Assessment & Plan: IVF, antiemetics (2) Dizziness Status: Chronic Assessment & Plan: Suspect infection related, will try meclizine as she requests symptomatic treatment 01/03 note that she has chronic issues, but worsened now, likely due to infection, resume home meclizine and monitor, work with PT. 01/04 not using meclizine and has been up to bathroom/walking okay. (3) Influenza B Status: Acute Assessment & Plan: Oseltamavir 5 day course (4) Non-insulin dependent type 2 diabetes mellitus Status: Chronic Assessment & Plan: Resume home medications (5) CAD (coronary artery disease), [place] coronary artery Status: Chronic Assessment & Plan: Resume home medications Qualifiers: Qualified Codes: I25.10 - Atherosclerotic heart disease of [place] coronary artery without angina pectoris (6) HTN (hypertension) Status: Chronic Assessment & Plan: Resume home medications Qualifiers: Qualified Codes: I10 - Essential (primary) hypertension (7) Mixed hyperlipidemia Status: Chronic (8) Hypothyroidism Status: Chronic (9) COPD (chronic obstructive pulmonary disease) Status: Chronic Assessment & Plan: Stable on room air, no evidence of exacerbation currently. Hospital Course Date of Admission: Jan 03, 2020 at 11:22 Admission Diagnosis : See problem list [facility] Date of Discharge: 01/05/20 Discharge Diagnosis: See problem list Hospital Course: See problem list Labs and Pending Lab Test: Laboratory Tests 01/04/20 11:22: Glucometer 145H 01/04/20 16:38: Glucometer 181H 01/04/20 20:21: Glucometer 141H 01/05/20 06:29: Glucometer 119H Microbiology 01/03/20 Influenza Types A,B Antigen (JENIFER) - Final, Complete Home Meds Active Tamiflu (Oseltamivir Phosphate) 30 Mg Capsule 30 Mg PO BID 3 Days Relabel inpatient med for home to complete 5 day course. Reported Fluticasone Propionate 16 Gm Wisdom.susp 1 Wisdom NSEACH BID PRN Meclizine HCl 12.5 Mg Tablet 12.5-25 Mg PO Q6H PRN Levothyroxine Sodium 112 Mcg Tablet 112 Mcg PO DAILY Janumet 50-1,000 mg Tablet (Sitagliptin Phos/Metformin HCl) 1 Each Tablet 1 Each PO BID WITH MEALS Fenofibrate 160 Mg Tablet 160 Mg PO DAILY Aspirin EC (Aspirin) 81 Mg Tablet.dr 81 Mg PO DAILY Acetaminophen 500 Mg Tablet 1,000 Mg PO Q6H PRN TAKES 2 (500 MG) TABLETS Pantoprazole Sodium 40 Mg Tablet.dr 40 Mg PO DAILY Atorvastatin Calcium 40 Mg Tablet 40 Mg PO HS Losartan Potassium 50 Mg Tablet 50 Mg PO DAILY Isosorbide Mononitrate ER (Isosorbide Mononitrate) 60 Mg Tab 60 Mg PO DAILY Clopidogrel (Clopidogrel Bisulfate) 75 Mg Tablet 75 Mg PO DAILY Ranexa (Ranolazine) 1,000 Mg Tab.er.12h 1,000 Mg PO BID Assessment/Pt DC Instructions Follow up with Dr. Carreno on 01/10 at 9 am. Discharge Diet: ADA Diet Activity as Tolerated: Yes Discharge Physical Examination Allergies: Coded Allergies: fentanyl (Unverified Allergy, Intermediate, SEVERE NAUSEA/VOMITTING, 06/07/11) morphine (Verified Allergy, Unknown, 07/19/18) tramadol (Verified Allergy, Unknown, 09/01/08) General Appearance: No Apparent Distress Respiratory: Lungs Clear Cardiovascular: Regular Rate, Rhythm, No Murmur Extremity: No Pedal Edema Skin: Normal Color, Warm/Dry Neurologic/Psychiatric: Alert, Normal Mood/Affect Copy Copies To 1: JAKY CARRENO MD Clinical Quality Measures DVT/VTE Risk/Contraindication: Risk Factor Score Per Nursin RFS Level Per Nursing on Admit: 2=Moderate DYLAN OLIVERA MD Jan 05, 2020 10:49
--- NOTE | 2020-01-05 11:23 | NUR ---
MANUAL BP OF 190/71 AFTER AM BP MEDICATIONS. DR OLIVERA NOTIFIED. DR OLIVERA TO PLACE NEW ORDERS IN [facility].
[2020-01-05] MEDS ORDERED: LOSA100T57 PO (11:30)
[2020-01-05] MEDS ORDERED: LOSARTAN 50 MG (COZAAR) TAB PO NR (11:30)
[2020-01-05] MEDS: ENOXAPARIN 40 MG/0.4 ML (LOVENOX) SYR SC SCH (11:58)
[2020-01-05 12:00] VITALS: BP 190/71
[2020-01-05 13:30] VITALS: BP 184/66
--- NOTE | 2020-01-05 14:30 | NUR ---
MANUAL BP 184/66. DR OLIVERA NOTIFIED.
--- NOTE | 2020-01-05 14:47 | NUR ---
DR OLIVERA GAVE OKAY FOR PT TO DISCHARGE. REQUESTED PT TO GET A BP CHECK AT CLINIC TOMORROW. PT VERBALIZED UNDERSTANDING.
[2020-01-05 15:00] VITALS: BP 184/66
[2020-01-05] MEDS ORDERED: OSELTAMIVIR 30 MG (TAMIFLU) CAPSULE PO SCH (15:00)
--- OUTSIDE RECORDS SUMMARY | 2020-01-07 23:20 | XMS REPORT ---
Author Author Shelli BARTHOLOMEW [facility] Address [address] [place] [address] Care Team Providers Care Food Porter Name Role Phone BREN BARTHOLOMEW Unavailable PROBLEMS Type Condition ICD9-CM Code IMQ60-BX Code Onset Dates Condition S tatus SNOMED Code Problem COPD (chronic obstructive pulmonary disease) J44.9 Active 60110729 Problem Former smoker Z87.891 Active 148334 6 Problem Hypothyroid E03.9 Active 06871918 Problem GERD (gastroesophageal reflux disease) K21.9 Active 033457621 Problem Constipation K59.00 Active 4021793 8 Problem Angina at rest I20.8 Active 58008 001 Problem Hyperlipidemia LDL goal <100 E78.5 A ctive 74187009 Problem Peptic ulcer K27.9 Active 0720571 3 Problem CVA (cerebral vascular accident) I63.9 Active 919349551 Problem Overweight (BMI 25.0-29.9) E66.3 Act esau 355178580 Problem 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 Active [id number] Problem Sick sinus syndrome I49.5 Active 84944572 Problem 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 Active 8709612505446 Problem Stress incontinence N39.3 Active 00410321 Problem 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 Active 931 997189032 Problem Osteopenia of spine M85.88 Active 075434347 Problem Type 2 diabetes mellitus wit h other specified complication, without long-term current use of insulin E11.69 Active 14232397 Problem Kidney stones N20.0 Active 048046 07 Problem Chronic fatigue R53.82 Active 8422 9001 Problem Anemia of chronic disease D63.8 Acti ve [id number] ALLERGIES No Information ENCOUNTERS Encounter Location Date Diagnosis [facility] [address] [facility] [id number] [address] [address] Apr, Type 2 diabetes mellitus wit h other specified complication, without long-term current use of insulin E11.69 [facility] [address] [id number] [address] [place] [address] March, Hyperlipidemia LDL goal <100 E78.5 and Type 2 diabetes mellitus with other specified complication, without long-term current use of insulin E11.69 [place] [address] [id number] [address] [place] [address] March, COPD (chronic obstructive pu lmonary disease) J44.9 [facility] [address] [id number] [address] [place] [address] March, [place] [address] [id number] [address] [place] [address] March, [place] [address] [id number] [address] [place] [address] March, Type 2 diabetes mellitus wit h other specified complication, without long-term current use of insulin E11.69 ; Hyperlipidemia LDL goal <100 E78.5 and COPD (chronic obstructive pulmonary disease) J44.9 [facility] [address] [id number] [address] [place] [address] March, Type 2 diabetes mellitus wit hout complication, without long-term current use of insulin E11.9 [place] [address] [id number] [address] [place] [address] Feb, COPD exacerbation J44.1 and Candidal intertrigo B37.2 [facility] [address] [id number] [address] [place] [phone] Feb, [place] [address] [id number] [address] [place] [address] Feb, [place] [address] [id number] [address] [place] [address] Feb, En[facility] for [facility] Z00.00 ; Type 2 diabetes mellitus with other specified complication, without long-term current use of insulin E11.69 ; COPD (chronic obstructive pulmonary disease) J44.9 ; GERD (gastroesophageal reflux disease) K21.9 ; Hyperlipidemia LDL goal <100 E78.5 ; 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 ; 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 [address] [facility] [id number] [address] [place] [address] 16 Jan, 2019 [facility] [address] [place] [id number] [address] [place] [address] 15 Jan, 2019 [place] [address] [address] 14 Jan, 2019 [place] [address] [place] [id number] [place] [phone] 13 Jan, 2019 Pneumonia of right lower lob e due to infectious organism J18.1 ; Stress incontinence N39.3 and COPD (chronic obstructive pulmonary disease) J44.9 [facility] [address] [facility] [id number] [address] [place] [address] 04 Jan, 2019 [place] [address] [place] [id number] [place] [address] 14 Dec, 2018 Angina at rest I20.8 [place] [address] [place] [id number] [address] [place] [address] 05 Dec, 2018 Angina at rest I20.8 [place] [address] [place] [id number] [place] [address] Nov, Type 2 diabetes mellitus wit hout complication, without long-term current use of insulin E11.9 ; Bladder dysfunction N31.9 ; Angina at rest I20.8 ; Hypothyroid E03.9 ; Vaginal discharge N89.8 ; GERD (gastroesophageal reflux disease) K21.9 ; 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 ; Abnormal urinalysis R82.90 ; Anemia of chronic disease D63.8 ; Low hemoglobin D64.9 and Chronic fatigue R53.82 [place] [address] [address] Nov, [place] [address] [address] Oct, Hypothyroid E03.9 [place] [address] [address] Oct, Hypothyroid E03.9 [place] [address] [address] Oct, Hyperlipidemia LDL goal <100 E78.5 [place] [address] [address] Sep, Type 2 diabetes mellitus wit h other specified complication, without long-term current use of insulin E11.69 and Hypothyroid E03.9 [place] [address] [address] Sep, [place] [address] [address] Sep, Candidal intertrigo B37.2 [place] [address] [address] 14 Sep, 2018 [facility] [address] [place] [id number] [address] [place] [address] 11 Sep, 2018 Yeast dermatitis B37.2 [place] [address] [address] Sep, Hyperlipidemia LDL goal <100 E78.5 [place] [address] [facility] [id number] [address] [place] [address] Aug, Encounter for immunization Z 23 [place] [address] [facility] [id number] [address] [place] [address] Jul, Hypothyroid E03.9 [place] [address] [facility] [id number] [address] [place] [address] Jul, Type 2 diabetes mellitus wit h other specified complication, without long-term current use of insulin E11.69 ; Kidney stones N20.0 ; Hypothyroid E03.9 ; COPD (chronic obstructive pulmonary disease) J44.9 and Hyperlipidemia LDL goal <100 E78.5 [place] [address] [facility] [id number] [address] [place] [address] Jun, [place] [address] [place] [id number] [address] [place] [phone] Jun, [place] [address] [facility] [id number] [address] [place] [phone] Jun, [place] [address] [facility] [id number] [place] [phone] May, [place] [address] [facility] [id number] [address] [place] [address] Apr, [place] [address] [facility] [id number] [place] [address] Apr, Type 2 diabetes mellitus wit hout complication, without long-term current use of insulin E11.9 ; Hypothyroid E03.9 ; Hyperlipidemia LDL goal <100 E78.5 ; Overweight (BMI 25.0-29.9) E66.3 ; Vaginal candidiasis B37.3 ; COPD (chronic obstructive pulmonary disease) J44.9 ; CVA (cerebral vascular accident) I63.9 ; GERD (gastroesophageal reflux disease) K21.9 ; Angina at rest I20.8 and Athscl heart disease of [place] coronary artery 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 [place] [address] [facility] [id number] [address] [place] [address] March, Hypothyroid E03.9 [facility] [address] [facility] [id number] [address] [place] [address] March, Hypercholesterolemia E78.00 [facility] [address] [facility] [id number] [address] [place] [address] March, Hypothyroid E03.9 [facility] [address] [facility] [id number] [address] [place] [address] March, Hypercholesterolemia E78.00 [facility] [address] [facility] [id number] [address] [place] [address] Feb, Hypercholesterolemia E78.00 [facility] [address] [facility] [id number] [address] [place] [address] Feb, Type 2 diabetes mellitus wit hout complication, without long-term current use of insulin E11.9 [place] [address] [place] [id number] [address] [place] [address] Feb, Hypothyroid E03.9 [place] [address] [place] [id number] [address] [place] [address] Jan, Hypothyroid E03.9 ; Oxygen d ependent Z99.81 ; Hospital discharge follow-up Z09 ; Type 2 diabetes mellitus without complication, without long-term current use of insulin E11.9 ; 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 and History of CVA (cerebrovascular accident) Z86.73 [place] [address] [facility] [id number] [address] [place] [address] Jan, [place] [address] [place] [id number] [address] [place] [address] Jan, [place] [address] [place] [id number] [address] [place] [address] Jan, Type 2 diabetes mellitus wit hout complication, without long-term current use of insulin E11.9 [place] [address] [id number] [address] [place] [address] Dec, Hospital discharge follow-up Z09 ; COPD (chronic obstructive pulmonary disease) J44.9 ; Type 2 diabetes mellitus without complication, without long-term current use of insulin E11.9 ; Hypothyroid E03.9 and Vaginal discharge N89.8 [facility] [address] [id number] [address] [place] [address] Dec, Hypothyroid E03.9 [place] [address] [id number] [address] [place] [address] Dec, Type 2 diabetes mellitus wit hout complication, without long-term current use of insulin E11.9 [place] [address] [id number] [address] [place] [id number] Nov, [place] [address] [id number] [address] [place] [address] Nov, [place] [address] [id number] [address] [place] [address] Nov, Pneumonia of right lower lob e due to infectious organism J18.1 ; Orthopnea R06.01 ; COPD with acute exacerbation J44.1 and Fatigue, unspecified type R53.83 [place] [address] [id number] [address] [place] [address] Nov, [place] [address] [id number] [address] [place] [address] Nov, [place] [address] [id number] [address] [place] [phone] Oct, Pneumonia of right lower lob e due to infectious organism J18.1 [place] [address] [id number] [address] [place] [id number] Oct, Pneumonia of right lower lob e due to infectious organism J18.1 [place] [address] [id number] [address] [place] [address] Oct, Pneumonia of right lower lob e due to infectious organism J18.1 [place] [address] [place] [id number] [address] [place] [address] Oct, COPD exacerbation J44.1 [place] [address] [place] [id number] [address] [place] [address] Oct, [place] [address] [place] [id number] [place] [address] Oct, COPD exacerbation J44.1 [place] [address] [address] 11 Oct, 2017 Encounter for immunization Z 23 and COPD (chronic obstructive pulmonary disease) J44.[address] [address] 06 Oct, 2017 Medicare annual wellness vis it, subsequent Z00.00 ; History of tobacco use Z87.891 ; Need for Zostavax administration Z23 ; Post-menopausal Z78.0 ; Screening for breast cancer Z12.31 ; Screening for colon cancer Z12.11 ; 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 and Encounter for immunization Z23 [place] [address] [address] Sep, Type 2 diabetes mellitus wit hout complication, without long-term current use of insulin E11.9 [place] [address] [address] Sep, Type 2 diabetes mellitus wit hout complication, without long-term current use of insulin E11.9 ; COPD (chronic obstructive pulmonary disease) J44.9 ; Hypothyroid E03.9 ; GERD (gastroesophageal reflux disease) K21.9 ; CVA (cerebral vascular accident) I63.9 ; Hyperlipidemia LDL goal <100 E78.5 ; Coronary artery disease of [place] heart with stable angina pectoris, unspecified vessel or lesion type I25.118 and 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 [place] [address] [place] [id number] [address] [place] [address] Aug, Type 2 diabetes mellitus wit hout complication, without long-term current use of insulin E11.9 [place] [address] [address] Aug, Hypothyroid E03.9 [place] [address] [address] Aug, Type 2 diabetes mellitus wit hout complication, without long-term current use of insulin E11.9 ; COPD (chronic obstructive pulmonary disease) J44.9 ; Hypothyroid E03.9 ; GERD (gastroesophageal reflux disease) K21.9 ; CVA (cerebral vascular accident) I63.9 ; Hyperlipidemia LDL goal <100 E78.5 ; Coronary artery disease of [place] heart with stable angina pectoris, unspecified vessel or lesion type I25.118 and Encounter for immunization Z23 [place] [address] [address] 12 Jul, 2017 Hypothyroid E03.9 and Hyperc holesterolemia E78.[address] [address] 08 Jul, 2017 Hypothyroid E03.9 ; Diabetes mellitus E11.9 and Hypercholesterolemia E78.[address] [address] Jul, Hypothyroid E03.9 ; Diabetes mellitus E11.9 and Hypercholesterolemia E78.0 [place] [address] [address] May, CVA (cerebral vascular accid ent) I63.9 and Dizziness R42 [place] [address] [address] May, Dehydration E86.0 ; CVA (cer ebral vascular accident) I63.9 ; COPD (chronic obstructive pulmonary disease) J44.9 and Dizziness R42 [place] [address] [address] March, Diabetes mellitus E11.9 ; An roberto at rest I20.8 ; COPD (chronic obstructive pulmonary disease) J44.9 ; GERD (gastroesophageal reflux disease) K21.9 ; Hypercholesterolemia E78.00 ; CVA (cerebral vascular accident) I63.9 and Hypothyroid E03.9 [facility] [address] [id number] [address] [place] [phone] Jan, Hypothyroid E03.9 and Diabet es mellitus E11.9 [facility] [address] [id number] [address] [place] [phone] Jan, [facility] [address] [id number] [address] [place] [phone] Jan, Diabetes mellitus E11.9 [facility] [address] [facility] [id number] [address] [place] [address] Jan, [facility] [address] [facility] [id number] [address] [place] [address] Dec, Diabetes mellitus E11.9 ; CV A (cerebral vascular accident) I63.9 ; COPD (chronic obstructive pulmonary disease) J44.9 ; Hypothyroid E03.9 ; GERD (gastroesophageal reflux disease) K21.9 and Hypercholesterolemia E78.00 [facility] [address] [id number] [address] [place] [address] Nov, Diabetes mellitus E11.9 [facility] [address] [facility] [id number] [address] [place] [address] Nov, [facility] [address] [facility] [id number] [address] [place] [address] Nov, [facility] [address] [id number] [address] [place] [address] Nov, [facility] [address] [facility] [id number] [address] [place] [address] Nov, Diabetes mellitus E11.9 [facility] [address] [facility] [id number] [address] [place] [address] Oct, Hypothyroid E03.9 [facility] [address] [facility] [id number] [address] [place] [address] Oct, Diabetes mellitus E11.9 [facility] [address] [facility] [id number] [address] [place] [address] Oct, COPD (chronic obstructive pu lmonary disease) J44.9 [facility] [address] [facility] [id number] [address] [place] [address] Oct, [place] [address] [address] Sep, Diabetes mellitus E11.9 ; An roberto at rest I20.8 ; Hypercholesterolemia E78.0 ; COPD (chronic obstructive pulmonary disease) J44.9 ; GERD (gastroesophageal reflux disease) K21.9 ; Dysuria R30.0 ; Acquired hypothyroidism E03.9 ; Encounter for immunization Z23 and Acute cystitis without hematuria N30.00 [facility] [address] [place] [id number] [address] [place] [address] Sep, Diabetes mellitus E11.9 [facility] [address] [facility] [id number] [address] [place] [address] Aug, [facility] [address] [address] Aug, Diabetes mellitus E11.9 [facility] [address] [place] [id number] [address] [place] [address] Jun, Angina at rest I20.8 ; CVA ( cerebral vascular accident) I63.9 ; Diabetes mellitus E11.9 ; Hypercholesterolemia E78.0 ; COPD (chronic obstructive pulmonary disease) J44.9 ; GERD (gastroesophageal reflux disease) K21.9 ; Peptic ulcer K27.9 and Hypothyroid E03.9 [facility] [address] [facility] [id number] [address] [place] [phone] Jun, [facility] [address] [place] [id number] [address] [place] [address] May, Diabetes mellitus E11.9 ; CV A (cerebral vascular accident) I63.9 ; COPD (chronic obstructive pulmonary disease) J44.9 and Angina at rest I20.8 [facility] [address] [facility] [id number] [address] [place] [address] May, [facility] [address] [facility] [id number] [address] [place] [address] May, Diabetes mellitus E11.9 ; Hy pothyroid E03.9 ; Angina at rest I20.8 ; CVA (cerebral vascular accident) I63.9 ; COPD (chronic obstructive pulmonary disease) J44.9 ; GERD (gastroesophageal reflux disease) K21.9 and Hypercholesterolemia E78.0 [place] [address] [facility] [id number] [address] [place] [address] Apr, Hypercholesterolemia E78.0 [place] [address] [facility] [id number] [place] [address] Apr, [place] [address] [address] March, Diabetes mellitus E11.9 ; Hy pothyroid E03.9 ; Hypercholesterolemia E78.0 ; COPD (chronic obstructive pulmonary disease) J44.9 ; GERD (gastroesophageal reflux disease) K21.9 ; Constipation K59.00 ; CVA (cerebral vascular accident) I63.9 and Angina at rest I20.8 [facility] [address] [facility] [id number] [address] [place] [address] March, [place] [address] [facility] [id number] [address] [place] [phone] Feb, [facility] [address] [facility] [id number] [address] [place] [address] Feb, [place] [address] [facility] [id number] [address] [place] [phone] Feb, [place] [address] [place] [id number] [address] [place] [address] Jan, Diabetes mellitus E11.9 ; Hy percholesterolemia E78.0 ; CVA (cerebral vascular accident) I63.9 ; GERD (gastroesophageal reflux disease) K21.9 ; Hypothyroid E03.9 and Angina at rest I20.8 [facility] [address] [facility] [id number] [address] [place] [address] Dec, Diabetes mellitus E11.9 ; Hy pothyroid E03.9 ; Angina at rest I20.8 ; CVA (cerebral vascular accident) I63.9 ; Hypercholesterolemia E78.0 ; COPD (chronic obstructive pulmonary disease) J44.9 ; GERD (gastroesophageal reflux disease) K21.9 and Dysuria R30.0 [facility] [address] [address] Nov, [place] [address] [address] Nov, Hypothyroid E03.9 [place] [address] [address] Nov, Hypothyroid E03.9 ; Angina a t rest I20.8 ; CVA (cerebral vascular accident) I63.9 ; Hypercholesterolemia E78.0 ; COPD (chronic obstructive pulmonary disease) J44.9 ; GERD (gastroesophageal reflux disease) K21.9 and Diabetes E11.9 [facility] [address] [facility] [id number] [address] [place] [phone] Oct, Upper respiratory symptom R0 9.89 [facility] [address] [address] Oct, [facility] [address] [id number] Oct, [facility] [address] [place] [id number] [address] [place] [id number] Oct, [place] [address] [id number] Aug, Diabetes mellitus 250.00 ; E ncounter for immunization Z23 ; Hypothyroid E03.9 ; Angina at rest I20.8 ; CVA (cerebral vascular accident) I63.9 ; Hypercholesterolemia E78.0 ; COPD (chronic obstructive pulmonary disease) J44.9 and GERD (gastroesophageal reflux disease) K21.9 [facility] [address] [facility] [id number] [address] [place] [id number] Jul, [facility] [address] [facility] [id number] [address] [place] [phone] Jun, [facility] [address] [place] [id number] [place] [phone] Jun, [facility] [address] [place] [id number] [address] [place] [phone] May, [facility] [address] [place] [id number] [place] [phone] May, Diabetes mellitus 250.00 ; H ypothyroidism 244.9 ; Angina at rest 413.9 ; CVA (cerebral infarction) 434.91 ; Hypercholesterolemia 272.0 ; COPD (chronic obstructive pulmonary disease) 496 and GERD (gastroesophageal reflux disease) 530.81 [facility] [address] [facility] [id number] [address] [place] [phone] Oct, [facility] [address] [facility] [id number] [address] [place] [phone] Oct, [facility] [address] [place] [id number] [place] [place] [phone] Oct, [facility] [address] [facility] [id number] [address] [place] [phone] Oct, [facility] [address] [facility] [id number] [address] [place] [phone] Sep, [facility] [address] [facility] [id number] [address] [place] [phone] Aug, [facility] [address] [place] [id number] [address] [place] [phone] Aug, [facility] [address] [facility] [id number] [address] [place] [phone] Aug, [facility] [address] [id number] [address] [place] [phone] 13 Jul, 2010 [facility] [address] [id number] [address] [place] [phone] 15 Jan, 2010 [facility] [address] [id number] [address] [place] [phone] 30 Oct, 2009 [facility] [address] [facility] [id number] [address] [place] [phone] Oct, [facility] [address] [facility] [id number] [address] [place] [phone] Sep, [facility] [address] [facility] [id number] [address] [place] [phone] Apr, [facility] [address] [facility] [id number] [address] [place] [phone] 10 Dec, 2008 IMMUNIZATIONS No Known Immunizations SOCIAL HISTORY Never Assessed REASON FOR VISIT ER Notification/Follow up PLAN OF CARE VITAL SIGNS MEDICATIONS Unknown Medications RESULTS No Results PROCEDURES No Known procedures INSTRUCTIONS MEDICATIONS ADMINISTERED No Known Medications MEDICAL (GENERAL) HISTORY Type Description Date Medical History Diabetic Medical History Hypothyroidism Medical History Stroke Medical History COPD Medical History GERD Medical History Ulcer Medical History COPD exacerbation 10/2017 Medical History RLL pneumonia 10/2017 Medical History Former smoker Medical History Kidney stones-2018 Surgical History Hysterectomy at age 27yrs old Surgical History right overy removed Surgical History CABG x3 2007 Surgical History stent 2007 Surgical History Gallbladder 2006 Surgical History cateract surgery 2010 Surgical History Linq insertion/(monitor heart rate) keily porfirio 2016 08/2015 Surgical History heart cath 06/2016 Hospitalization History CABG x3 2007 Hospitalization History Gallbladder 2007 Hospitalization History stent 2007 Hospitalization History Right upper lobe Pneumonia 02/24/16 Hospitalization History Chest Pain--[facility] 05/03 05/18 Hospitalization History Chest pain--[facility] 06/18/16 Hospitalization History Influenza & COPD exacerbation 12/21 Hospitalization History Cardiac Monitoring 01/2018 Hospitalization History [facility] [place] [facility], tripped and hit head 04/2018 Hospitalization History [facility] [place]- kidney stones 07/18-07/20 Hospitalization History ER- Bronchitia 01/2019
--- OUTSIDE RECORDS SUMMARY | 2020-01-07 23:20 | XMS REPORT ---
Author Author Shelli BARTHOLOMEW [facility] Address [address] [place] [address] Care Team Providers Care Teradata Architect Name Role Phone BREN BARTHOLOMEW Unavailable PROBLEMS Type Condition ICD9-CM Code CQQ47-OX Code Onset Dates Condition S tatus SNOMED Code Problem COPD (chronic obstructive pulmonary disease) J44.9 Active 50753273 Problem Former smoker Z87.891 Active 323505 6 Problem Hypothyroid E03.9 Active 21287287 Problem GERD (gastroesophageal reflux disease) K21.9 Active 727978143 Problem Constipation K59.00 Active 9143270 8 Problem Angina at rest I20.8 Active 00302 001 Problem Hyperlipidemia LDL goal <100 E78.5 A ctive 19746691 Problem Peptic ulcer K27.9 Active 7088295 3 Problem CVA (cerebral vascular accident) I63.9 Active 371672904 Problem Overweight (BMI 25.0-29.9) E66.3 Act esau 306458345 Problem 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 Active [id number] Problem Sick sinus syndrome I49.5 Active 43819743 Problem 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 Active 8950780202928 Problem Stress incontinence N39.3 Active 19639362 Problem 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 Active 931 527222502 Problem Osteopenia of spine M85.88 Active 942094531 Problem Type 2 diabetes mellitus wit h other specified complication, without long-term current use of insulin E11.69 Active 71839433 Problem Kidney stones N20.0 Active 818679 07 Problem Chronic fatigue R53.82 Active 8422 9001 Problem Anemia of chronic disease D63.8 Acti ve 519181639 ALLERGIES Substance Reaction Event Type Date Status Ultram hives Drug Allergy Jan, Active Fentanyl hives Drug Allergy Jan, Active ENCOUNTERS Encounter Location Date Diagnosis [place] [address] [facility] [id number] [address] [place] [phone] Aug, [place] [address] [facility] [id number] [address] [place] [phone] Jun, Hypothyroid E03.9 ; Type 2 d iabetes mellitus with other specified complication, without long-term current use of insulin E11.69 and Anemia of chronic disease D63.8 [place] [address] [facility] [id number] [address] [place] [phone] May, Acute cystitis without hemat uria N30.00 and Acute bilateral low back pain without sciatica M54.5 [place] [address] [facility] [id number] [address] [place] [phone] Apr, Type 2 diabetes mellitus wit h other specified complication, without long-term current use of insulin E11.69 [place] [address] [facility] [id number] [address] [place] [phone] March, Hyperlipidemia LDL goal <100 E78.5 and Type 2 diabetes mellitus with other specified complication, without long-term current use of insulin E11.69 [place] [address] [facility] [id number] [address] [place] [phone] March, COPD (chronic obstructive pu lmonary disease) J44.9 [place] [address] [facility] [id number] [address] [place] [phone] March, [place] [address] [facility] [id number] [address] [place] [phone] March, [place] [address] [facility] [id number] [address] [place] [phone] March, Type 2 diabetes mellitus wit h other specified complication, without long-term current use of insulin E11.69 ; Hyperlipidemia LDL goal <100 E78.5 and COPD (chronic obstructive pulmonary disease) J44.9 [place] [address] [facility] [id number] [address] [place] [phone] March, Type 2 diabetes mellitus wit hout complication, without long-term current use of insulin E11.9 [facility] [address] [facility] [id number] [address] [place] [phone] Feb, COPD exacerbation J44.1 and Candidal intertrigo B37.2 [facility] [address] [facility] [id number] [address] [place] [phone] Feb, [place] [address] [place] [id number] [place] [phone] Feb, [place] [address] [place] [id number] [place] [phone] 10 Feb, 2019 [facility] ; Type 2 diabetes mellitus with other specified complication, without long-term current use of insulin E11.69 ; COPD (chronic obstructive pulmonary disease) J44.9 ; GERD (gastroesophageal reflux disease) K21.9 ; Hyperlipidemia LDL goal <100 E78.5 ; 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 ; 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 ; Osteopenia of spine M85.88 ; Peptic ulcer K27.9 ; Sick sinus syndrome I49.5 and Screening for breast cancer Z12.31 [place] [address] [place] [id number] [address] [place] [phone] 05 Feb, 2019 [facility] [address] [place] [id number] [address] [place] [phone] Jan, [place] [address] [place] [id number] [address] [place] [phone] 18 Jan, 2019 COPD (chronic obstructive pu lmonary disease) J44.9 and Mobility impaired Z74.09 [facility] [address] [facility] [id number] [address] [place] [phone] 16 Jan, 2019 [facility] [address] [place] [id number] [address] [place] [phone] 15 Jan, 2019 [facility] [address] [place] [id number] [address] [place] [phone] 14 Jan, 2019 [facility] [address] [address] 13 Jan, 2019 Pneumonia of right lower lob e due to infectious organism J18.1 ; Stress incontinence N39.3 and COPD (chronic obstructive pulmonary disease) J44.9 [place] [address] [address] 04 Jan, 2019 [place] [address] [address] 14 Dec, 2018 Angina at rest I20.8 [place] [address] [address] 05 Dec, 2018 Angina at rest I20.8 [place] [address] [address] Nov, Type 2 diabetes mellitus wit hout complication, without long-term current use of insulin E11.9 ; Bladder dysfunction N31.9 ; Angina at rest I20.8 ; Hypothyroid E03.9 ; Vaginal discharge N89.8 ; GERD (gastroesophageal reflux disease) K21.9 ; 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 ; Abnormal urinalysis R82.90 ; Anemia of chronic disease D63.8 ; Low hemoglobin D64.9 and Chronic fatigue R53.82 [place] [address] [address] Nov, [place] [address] [address] Oct, Hypothyroid E03.9 [place] [address] [address] Oct, Hypothyroid E03.9 [place] [address] [address] Oct, Hyperlipidemia LDL goal <100 E78.5 [place] [address] [address] Sep, Type 2 diabetes mellitus wit h other specified complication, without long-term current use of insulin E11.69 and Hypothyroid E03.9 [facility] [address] [facility] [id number] [address] [place] [phone] Sep, [facility] [address] [facility] [id number] [address] [place] [phone] Sep, Candidal intertrigo B37.2 [facility] [address] [facility] [id number] [address] [place] [phone] Sep, [facility] [address] [facility] [id number] [address] [place] [phone] Sep, Yeast dermatitis B37.2 [place] [address] [facility] [id number] [address] [place] [phone] Sep, Hyperlipidemia LDL goal <100 E78.5 [place] [address] [address] Aug, Encounter for immunization Z 23 [place] [address] [facility] [id number] [address] [place] [phone] Jul, Hypothyroid E03.9 [place] [address] [facility] [id number] [place] [id number] 18 Jul, 2018 Type 2 diabetes mellitus wit h other specified complication, without long-term current use of insulin E11.69 ; Kidney stones N20.0 ; Hypothyroid E03.9 ; COPD (chronic obstructive pulmonary disease) J44.9 and Hyperlipidemia LDL goal <100 E78.5 [place] [address] [facility] [id number] [address] [place] [phone] Jun, [place] [address] [facility] [id number] [address] [place] [phone] Jun, [place] [address] [facility] [id number] [address] [place] [phone] Jun, [facility] [address] [facility] [id number] [address] [place] [phone] May, [place] [address] [place] [id number] [address] [place] [phone] Apr, [place] [address] [id number] Apr, Type 2 diabetes mellitus wit hout complication, without long-term current use of insulin E11.9 ; Hypothyroid E03.9 ; Hyperlipidemia LDL goal <100 E78.5 ; Overweight (BMI 25.0-29.9) E66.3 ; Vaginal candidiasis B37.3 ; COPD (chronic obstructive pulmonary disease) J44.9 ; CVA (cerebral vascular accident) I63.9 ; GERD (gastroesophageal reflux disease) K21.9 ; Angina at rest I20.8 and Athscl heart disease of [place] coronary artery 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 [place] [address] [address] March, Hypothyroid E03.9 [place] [address] [address] March, Hypercholesterolemia E78.00 [place] [address] [place] [id number] [address] [place] [phone] March, Hypothyroid E03.9 [place] [address] [place] [id number] [address] [place] [phone] March, Hypercholesterolemia E78.00 [place] [address] [place] [id number] [address] [place] [phone] Feb, Hypercholesterolemia E78.00 [place] [address] [place] [id number] [address] [place] [phone] Feb, Type 2 diabetes mellitus wit hout complication, without long-term current use of insulin E11.9 [place] [address] [facility] [id number] [address] [place] [phone] Feb, Hypothyroid E03.9 [place] [address] [place] [id number] [address] [place] [phone] Jan, Hypothyroid E03.9 ; Oxygen d ependent Z99.81 ; Hospital discharge follow-up Z09 ; Type 2 diabetes mellitus without complication, without long-term current use of insulin E11.9 ; 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 and History of CVA (cerebrovascular accident) Z86.73 [place] [address] [facility] [id number] [address] [place] [phone] Jan, [place] [address] [facility] [id number] [address] [place] [phone] Jan, [place] [address] [facility] [id number] [address] [place] [phone] Jan, Type 2 diabetes mellitus wit hout complication, without long-term current use of insulin E11.9 [place] [address] [place] [id number] [address] [place] [phone] 27 Dec, 2017 Hospital discharge follow-up Z09 ; COPD (chronic obstructive pulmonary disease) J44.9 ; Type 2 diabetes mellitus without complication, without long-term current use of insulin E11.9 ; Hypothyroid E03.9 and Vaginal discharge N89.8 [place] [address] [facility] [id number] [address] [place] [phone] Dec, Hypothyroid E03.9 [place] [address] [facility] [id number] [address] [place] [phone] Dec, Type 2 diabetes mellitus wit hout complication, without long-term current use of insulin E11.9 [place] [address] [facility] [id number] [address] [place] [phone] Nov, [place] [address] [facility] [id number] [address] [place] [phone] Nov, [place] [address] [place] [id number] [address] [place] [phone] Nov, Pneumonia of right lower lob e due to infectious organism J18.1 ; Orthopnea R06.01 ; COPD with acute exacerbation J44.1 and Fatigue, unspecified type R53.83 [place] [address] [place] [id number] [address] [place] [phone] Nov, [facility] [address] [id number] [address] [place] [phone] Nov, [facility] [address] [id number] [address] [place] [phone] Oct, Pneumonia of right lower lob e due to infectious organism J18.1 [facility] [address] [id number] [address] [place] [phone] Oct, Pneumonia of right lower lob e due to infectious organism J18.1 [facility] [address] [id number] [address] [place] [phone] Oct, Pneumonia of right lower lob e due to infectious organism J18.1 [facility] [address] [id number] [address] [place] [phone] Oct, COPD exacerbation J44.1 [facility] [address] [id number] [address] [place] [phone] Oct, [facility] [address] [id number] [address] [place] [phone] Oct, COPD exacerbation J44.1 [facility] [address] [facility] [id number] [address] [place] [phone] Oct, Encounter for immunization Z 23 and COPD (chronic obstructive pulmonary disease) J44.9 [place] [address] [facility] [id number] [address] [place] [phone] Oct, Medicare annual wellness vis it, subsequent Z00.00 ; History of tobacco use Z87.891 ; Need for Zostavax administration Z23 ; Post-menopausal Z78.0 ; Screening for breast cancer Z12.31 ; Screening for colon cancer Z12.11 ; 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 and Encounter for immunization Z23 [facility] [address] [facility] [id number] [address] [place] [id number] Sep, Type 2 diabetes mellitus wit hout complication, without long-term current use of insulin E11.9 [place] [address] [place] [id number] [address] [place] [phone] Sep, Type 2 diabetes mellitus wit hout complication, without long-term current use of insulin E11.9 ; COPD (chronic obstructive pulmonary disease) J44.9 ; Hypothyroid E03.9 ; GERD (gastroesophageal reflux disease) K21.9 ; CVA (cerebral vascular accident) I63.9 ; Hyperlipidemia LDL goal <100 E78.5 ; Coronary artery disease of [place] heart with stable angina pectoris, unspecified vessel or lesion type I25.118 and 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 [place] [address] [place] [id number] [place] [phone] Aug, Type 2 diabetes mellitus wit hout complication, without long-term current use of insulin E11.9 [place] [address] [address] Aug, Hypothyroid E03.9 [place] [address] [address] Aug, Type 2 diabetes mellitus wit hout complication, without long-term current use of insulin E11.9 ; COPD (chronic obstructive pulmonary disease) J44.9 ; Hypothyroid E03.9 ; GERD (gastroesophageal reflux disease) K21.9 ; CVA (cerebral vascular accident) I63.9 ; Hyperlipidemia LDL goal <100 E78.5 ; Coronary artery disease of [place] heart with stable angina pectoris, unspecified vessel or lesion type I25.118 and Encounter for immunization Z23 [place] [address] [address] Jul, Hypothyroid E03.9 and Hyperc holesterolemia E78.[address] [address] Jul, Hypothyroid E03.9 ; Diabetes mellitus E11.9 and Hypercholesterolemia E78.0 [place] [address] [place] [id number] [place] [phone] Jul, Hypothyroid E03.9 ; Diabetes mellitus E11.9 and Hypercholesterolemia E78.0 [facility] [address] [id number] [address] [place] [phone] May, CVA (cerebral vascular accid ent) I63.9 and Dizziness R42 [facility] [address] [id number] [address] [place] [phone] May, Dehydration E86.0 ; CVA (cer ebral vascular accident) I63.9 ; COPD (chronic obstructive pulmonary disease) J44.9 and Dizziness R42 [facility] [address] [id number] [address] [place] [phone] March, Diabetes mellitus E11.9 ; An roberto at rest I20.8 ; COPD (chronic obstructive pulmonary disease) J44.9 ; GERD (gastroesophageal reflux disease) K21.9 ; Hypercholesterolemia E78.00 ; CVA (cerebral vascular accident) I63.9 and Hypothyroid E03.9 [place] [id number] [facility] [id number] [address] [place] [phone] Jan, Hypothyroid E03.9 and Diabet es mellitus E11.9 [place] [id number] [id number] [address] [place] [phone] Jan, [facility] [address] [facility] [id number] [address] [place] [phone] Jan, Diabetes mellitus E11.9 [place] [id number] [facility] [id number] [address] [place] [id number] Jan, [facility] [address] [facility] [id number] [address] [place] [phone] Dec, Diabetes mellitus E11.9 ; CV A (cerebral vascular accident) I63.9 ; COPD (chronic obstructive pulmonary disease) J44.9 ; Hypothyroid E03.9 ; GERD (gastroesophageal reflux disease) K21.9 and Hypercholesterolemia E78.00 [facility] [address] [facility] [id number] [address] [place] [phone] Nov, Diabetes mellitus E11.9 [facility] [address] [id number] [address] [place] [phone] Nov, [facility] [address] [facility] [id number] [address] [place] [phone] Nov, [facility] [address] [facility] [id number] [address] [place] [phone] Nov, [facility] [address] [facility] [id number] [address] [place] [phone] Nov, Diabetes mellitus E11.9 [facility] [address] [facility] [id number] [address] [place] [phone] Oct, Hypothyroid E03.9 [facility] [address] [facility] [id number] [place] [phone] Oct, Diabetes mellitus E11.9 [facility] [address] [place] [id number] [place] [phone] Oct, COPD (chronic obstructive pu lmonary disease) J44.9 [facility] [address] [facility] [id number] [address] [place] [phone] Oct, [facility] [address] [address] Sep, Diabetes mellitus E11.9 ; An roberto at rest I20.8 ; Hypercholesterolemia E78.0 ; COPD (chronic obstructive pulmonary disease) J44.9 ; GERD (gastroesophageal reflux disease) K21.9 ; Dysuria R30.0 ; Acquired hypothyroidism E03.9 ; Encounter for immunization Z23 and Acute cystitis without hematuria N30.00 [facility] [address] [facility] [id number] [address] [place] [phone] Sep, Diabetes mellitus E11.9 [facility] [address] [facility] [id number] [address] [place] [phone] Aug, [facility] [address] [facility] [id number] [address] [place] [phone] Aug, Diabetes mellitus E11.9 [facility] [address] [address] Jun, Angina at rest I20.8 ; CVA ( cerebral vascular accident) I63.9 ; Diabetes mellitus E11.9 ; Hypercholesterolemia E78.0 ; COPD (chronic obstructive pulmonary disease) J44.9 ; GERD (gastroesophageal reflux disease) K21.9 ; Peptic ulcer K27.9 and Hypothyroid E03.9 [place] [address] [address] Jun, [place] [address] [address] May, Diabetes mellitus E11.9 ; CV A (cerebral vascular accident) I63.9 ; COPD (chronic obstructive pulmonary disease) J44.9 and Angina at rest I20.8 [place] [address] [address] May, [place] [address] [address] May, Diabetes mellitus E11.9 ; Hy pothyroid E03.9 ; Angina at rest I20.8 ; CVA (cerebral vascular accident) I63.9 ; COPD (chronic obstructive pulmonary disease) J44.9 ; GERD (gastroesophageal reflux disease) K21.9 and Hypercholesterolemia E78.0 [place] [address] [address] Apr, Hypercholesterolemia E78.0 [place] [address] [address] Apr, [place] [address] [address] March, Diabetes mellitus E11.9 ; Hy pothyroid E03.9 ; Hypercholesterolemia E78.0 ; COPD (chronic obstructive pulmonary disease) J44.9 ; GERD (gastroesophageal reflux disease) K21.9 ; Constipation K59.00 ; CVA (cerebral vascular accident) I63.9 and Angina at rest I20.8 [place] [address] [place] [address] March, [facility] [address] [address] Feb, [place] [id number] [address] Feb, [facility] [address] [address] Feb, [facility] [address] [address] Jan, Diabetes mellitus E11.9 ; Hy percholesterolemia E78.0 ; CVA (cerebral vascular accident) I63.9 ; GERD (gastroesophageal reflux disease) K21.9 ; Hypothyroid E03.9 and Angina at rest I20.8 [place] [address] [address] Dec, Diabetes mellitus E11.9 ; Hy pothyroid E03.9 ; Angina at rest I20.8 ; CVA (cerebral vascular accident) I63.9 ; Hypercholesterolemia E78.0 ; COPD (chronic obstructive pulmonary disease) J44.9 ; GERD (gastroesophageal reflux disease) K21.9 and Dysuria R30.0 [facility] [address] [address] Nov, [place] [address] [address] Nov, Hypothyroid E03.9 [place] [address] [address] Nov, Hypothyroid E03.9 ; Angina a t rest I20.8 ; CVA (cerebral vascular accident) I63.9 ; Hypercholesterolemia E78.0 ; COPD (chronic obstructive pulmonary disease) J44.9 ; GERD (gastroesophageal reflux disease) K21.9 and Diabetes E11.9 [facility] [address] [address] Oct, Upper respiratory symptom R0 9.89 [facility] [address] [address] Oct, [facility] [address] [address] Oct, [facility] [address] [address] Oct, [place] [address] [address] Aug, Diabetes mellitus 250.00 ; E ncounter for immunization Z23 ; Hypothyroid E03.9 ; Angina at rest I20.8 ; CVA (cerebral vascular accident) I63.9 ; Hypercholesterolemia E78.0 ; COPD (chronic obstructive pulmonary disease) J44.9 and GERD (gastroesophageal reflux disease) K21.9 [place] [address] [address] Jul, [place] [address] [address] Jun, [place] [address] [address] Jun, [place] [address] [address] May, [place] [address] [address] May, Diabetes mellitus 250.00 ; H ypothyroidism 244.9 ; Angina at rest 413.9 ; CVA (cerebral infarction) 434.91 ; Hypercholesterolemia 272.0 ; COPD (chronic obstructive pulmonary disease) 496 and GERD (gastroesophageal reflux disease) 530.81 [place] [address] [address] Oct, [place] [address] [address] Oct, [place] [address] [address] Oct, [facility] [address] [id number] [address] [place] [id number] Oct, [facility] [address] [id number] [address] [place] [id number] Sep, [facility] [address] [id number] [address] [place] [phone] Aug, [facility] [address] [id number] [address] [place] [phone] Aug, [facility] [address] [id number] [address] [place] [phone] Aug, [facility] [address] [id number] [address] [place] [phone] Jul, [facility] [address] [id number] [address] [place] [phone] Jan, [facility] [address] [id number] [address] [place] [phone] Oct, [facility] [address] [id number] [address] [place] [phone] Oct, [facility] [address] [id number] [address] [place] [phone] Sep, [facility] [address] [id number] [address] [place] [phone] Apr, [facility] [address] [id number] [address] [place] [phone] Dec, IMMUNIZATIONS No Known Immunizations SOCIAL HISTORY Never Assessed REASON FOR VISIT ER f/u- 01/13/2019 - Khanh- ALECIA Raya PLAN OF CARE Activity Details Follow Up prn. if not improving with P CP or reg follow up Reason: VITAL SIGNS Height 60 in 2019-01-18 Weight 164.4 lbs 2019-01-18 Temperature 97.3 degrees Fahrenheit 2019-01-18 Heart Rate 68 bpm 2019-01-18 Oximetry w/ oxygen 2 LPM:98 % 2019-01-18 BMI 32.10 kg/m2 2019-01-18 Blood pressure systolic 98 mmHg 2019-01-18 Blood pressure diastolic 60 mmHg 2019-01-18 MEDICATIONS Medication Instructions Dosage Frequency Start Date End Date Duration S jaleel Villatoro 100 MG 1 capsule as needed Active Aspirin 81 81 MG Orally Once a day 1 tablet 24h Active Levaquin 500 mg Orally Once a day 1 tablet 24h Jan, 7 days Active Losartan Potassium 50 MG Orally Once a day 1 tablet 24h Active OneTouch Ultra Test - In Vitro 3 times a day USE ONE STRIP T O CHECK GLUCOSE ONCE DAILY DIRECTED 8h Active Incontinence Brief Medium 1 topically 4 times a day 1 brief 6h Jan, 30 days Active Ranexa 1000 MG Orally Twice a day 1 tablet 12h Active Levothyroxine Sodium 112 MCG Orally Once a day 1 tablet on an empty stomach in the morning 24h 17 Oct, 2018 Active Isosorbide Mononitrate ER 60 MG Orally Once a day 1 tablet 24h Active Fenofibrate 160 MG TAKE ONE TABLET BY MOUTH DAILY Active Albuterol Sulfate (2.5 MG/3ML) 0.083% Inhalation 4 times a day 3 ml as needed 6h 18 Jan, 2019 7 days Active Atorvastatin Calcium 40 mg Orally Once a day at HS 1 tablet Active [email or web address] Delica Lancets 33G - USE TO TEST BLOOD SUGAR ONCE DAILY (E11.9) Active Nitroglycerin 0.4 MG Sublingual for chest pain, m ay repeat in 5 minutes, if needed more than 2 times go to ER 1 tablet Dec, Active Clopidogrel Bisulfate 75 MG Orally Once a day 1 tablet 24h Active Lancets test one time per day as directed Active Protonix 40 mg Orally twice a day 1 tablet 12h Active Acetaminophen 500 MG Orally every 6 hrs 2 tablets 6h Active Janumet 50-1000 mg Orally Twice a day 1 tablet with meals 12h 30 days Active Glucometer 1 glucometer Please dispense 1 insura nce compatible glucometer kit Jan, Active PredniSONE 20 MG Orally Once a day 2 tablet 24h Jan, 5 days Active Nystatin 488656 UNIT/GM Externally Twice a day 1 application to affected area 12h 27 Dec, 2017 Active Oxygen Portable oxygen concentrator Use 2L nc O2 when up ambulating Oct, Active RESULTS No Results PROCEDURES Procedure Date Ordered Result Body Site [facility] VISIT ESTABLISHED PATIENT January 18, 2019 INSTRUCTIONS MEDICATIONS ADMINISTERED No Known Medications MEDICAL (GENERAL) HISTORY Type Description Date Medical History Diabetic Medical History Hypothyroidism Medical History Stroke Medical History COPD Medical History GERD Medical History Ulcer Medical History COPD exacerbation 10/2017 Medical History RLL pneumonia 10/2017 Medical History Former smoker Medical History Kidney stones-2017 Surgical History Hysterectomy at age 27yrs old [...] lobe Pneumonia 02/24/16 Hospitalization History Chest Pain--[facility] 05/03 05/18 Hospitalization History Chest pain--[facility] 06/18/16 Hospitalization History Influenza & COPD exacerbation 12/21 Hospitalization History Cardiac Monitoring 01/2018 Hospitalization History Via [facility], tripped and hit head 04/2018 Hospitalization History [facility]- kidney stones 07/18-07/20 Hospitalization History ER- Bronchitia 01/2019
--- OUTSIDE RECORDS SUMMARY | 2020-01-07 23:20 | XMS REPORT ---
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 Name Role Phone BREN BARTHOLOMEW Unavailable PROBLEMS Type Condition ICD9-CM Code ABG86-GD Code Onset Dates Condition S tatus SNOMED Code Problem COPD (chronic obstructive pulmonary disease) J44.9 Active 79233611 Problem Former smoker Z87.891 Active 191851 6 Problem Hypothyroid E03.9 Active 06554587 Problem GERD (gastroesophageal reflux disease) K21.9 Active 097942894 Problem Constipation K59.00 Active 2345160 8 Problem Angina at rest I20.8 Active 55604 001 Problem Hyperlipidemia LDL goal <100 E78.5 A ctive 85474238 Problem Peptic ulcer K27.9 Active 0672618 3 Problem CVA (cerebral vascular accident) I63.9 Active 030577316 Problem Overweight (BMI 25.0-29.9) E66.3 Act esau 515961527 Problem 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 Active [id number] Problem Sick sinus syndrome I49.5 Active 79514373 Problem 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 [id number] [address] [address] Apr, Type 2 diabetes mellitus wit h other specified complication, without long-term current use of insulin E11.69 [facility] [address] [id number] [address] [place] [address] March, Hyperlipidemia LDL goal <100 E78.5 and Type 2 diabetes mellitus with other specified complication, without long-term current use of insulin E11.69 [place] [address] [id number] [address] [place] [address] March, COPD (chronic obstructive pu lmonary disease) J44.9 [facility] [address] [id number] [address] [place] [address] March, [place] [address] [id number] [address] [place] [phone] March, [place] [address] [id number] [address] [place] [id number] March, Type 2 diabetes mellitus wit h other specified complication, without long-term current use of insulin E11.69 ; Hyperlipidemia LDL goal <100 E78.5 and COPD (chronic obstructive pulmonary disease) J44.9 [facility] [address] [id number] [address] [place] [id number] March, Type 2 diabetes mellitus wit hout complication, without long-term current use of insulin E11.9 [place] [address] [id number] [address] [place] [phone] Feb, COPD exacerbation J44.1 and Candidal intertrigo B37.2 [facility] [address] [id number] [address] [place] [phone] Feb, [place] [address] [id number] [address] [place] [id number] Feb, [place] [address] [id number] [address] [place] [address] Feb, Encounter for Medicare [facility] Z00.00 ; Type 2 diabetes mellitus with other specified complication, without long-term current use of insulin E11.69 ; COPD (chronic obstructive pulmonary disease) J44.9 ; GERD (gastroesophageal reflux disease) K21.9 ; Hyperlipidemia LDL goal <100 E78.5 ; 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 [id number] [address] [place] [id number] 19 Jan, 2019 [place] [address] [place] [id number] [place] [phone] 18 Jan, 2019 COPD (chronic obstructive pu lmonary disease) J44.9 and Mobility impaired Z74.09 [facility] [address] [facility] [id number] [address] [place] [phone] 16 Jan, 2019 [facility] [address] [place] [id number] [address] [place] [phone] 15 Jan, 2019 [place] [address] [address] 14 Jan, 2019 [place] [address] [place] [id number] [place] [phone] 13 Jan, 2019 Pneumonia of right lower lob e due to infectious organism J18.1 ; Stress incontinence N39.3 and COPD (chronic obstructive pulmonary disease) J44.9 [facility] [address] [facility] [id number] [address] [place] [phone] 04 Jan, 2019 [place] [address] [place] [id number] [place] [phone] 14 Dec, 2018 Angina at rest I20.8 [place] [address] [place] [id number] [address] [place] [phone] 05 Dec, 2018 Angina at rest I20.8 [place] [address] [place] [id number] [place] [address] Nov, Type 2 diabetes mellitus wit hout complication, without long-term current use of insulin E11.9 ; Bladder dysfunction N31.9 ; Angina at rest I20.8 ; Hypothyroid E03.9 ; Vaginal discharge N89.8 ; GERD (gastroesophageal reflux disease) K21.9 ; 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 ; Abnormal urinalysis R82.90 ; Anemia of chronic disease D63.8 ; Low hemoglobin D64.9 and Chronic fatigue R53.82 [place] [address] [address] Nov, [place] [address] [address] Oct, Hypothyroid E03.9 [place] [address] [address] Oct, Hypothyroid E03.9 [place] [address] [address] Oct, Hyperlipidemia LDL goal <100 E78.5 [place] [address] [address] Sep, Type 2 diabetes mellitus wit h other specified complication, without long-term current use of insulin E11.69 and Hypothyroid E03.9 [place] [address] [address] Sep, [place] [address] [address] Sep, Candidal intertrigo B37.2 [place] [address] [address] 14 Sep, 2018 [facility] [address] [place] [id number] [address] [place] [address] 11 Sep, 2018 Yeast dermatitis B37.2 [place] [address] [address] Sep, Hyperlipidemia LDL goal <100 E78.5 [place] [address] [facility] [id number] [address] [place] [phone] Aug, Encounter for immunization Z 23 [place] [address] [facility] [id number] [address] [place] [phone] Jul, Hypothyroid E03.9 [place] [address] [facility] [id number] [address] [place] [address] Jul, Type 2 diabetes mellitus wit h other specified complication, without long-term current use of insulin E11.69 ; Kidney stones N20.0 ; Hypothyroid E03.9 ; COPD (chronic obstructive pulmonary disease) J44.9 and Hyperlipidemia LDL goal <100 E78.5 [place] [address] [facility] [id number] [address] [place] [phone] Jun, [place] [address] [place] [id number] [address] [place] [phone] Jun, [place] [address] [facility] [id number] [address] [place] [phone] Jun, [place] [address] [facility] [id number] [place] [phone] May, [place] [address] [facility] [id number] [address] [place] [phone] Apr, [place] [address] 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 [id number] [address] [place] [phone] March, Hypothyroid E03.9 [facility] [address] [facility] [id number] [address] [place] [id number] March, Hypercholesterolemia E78.00 [facility] [address] [facility] [id number] [address] [place] [address] March, Hypothyroid E03.9 [facility] [address] [facility] [id number] [address] [place] [id number] March, Hypercholesterolemia E78.00 [facility] [address] [facility] [id number] [address] [place] [id number] Feb, Hypercholesterolemia E78.00 [facility] [address] 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 [id number] [address] [place] [phone] Jan, [place] [address] [place] [id number] [address] [place] [phone] Jan, [place] [address] [place] [id number] [address] [place] [phone] Jan, Type 2 diabetes mellitus wit hout complication, without long-term current use of insulin E11.9 [place] [address] [id number] [address] [place] [address] Dec, Hospital discharge follow-up Z09 ; COPD (chronic obstructive pulmonary disease) J44.9 ; Type 2 diabetes mellitus without complication, without long-term current use of insulin E11.9 ; Hypothyroid E03.9 and Vaginal discharge N89.8 [facility] [address] [id number] [address] [place] [phone] Dec, Hypothyroid E03.9 [place] [address] [id number] [address] [place] [id number] Dec, Type 2 diabetes mellitus wit hout complication, without long-term current use of insulin E11.9 [place] [address] [id number] [address] [place] [phone] Nov, [place] [address] [id number] [address] [place] [address] Nov, [place] [address] [id number] [address] [place] [address] Nov, Pneumonia of right lower lob e due to infectious organism J18.1 ; Orthopnea R06.01 ; COPD with acute exacerbation J44.1 and Fatigue, unspecified type R53.83 [place] [address] [id number] [address] [place] [phone] Nov, [place] [address] [id number] [address] [place] [phone] Nov, [place] [address] [id number] [address] [place] [address] Oct, Pneumonia of right lower lob e due to infectious organism J18.1 [place] [address] [id number] [address] [place] [id number] Oct, Pneumonia of right lower lob e due to infectious organism J18.1 [place] [address] [id number] [address] [place] [phone] Oct, Pneumonia of right lower lob e due to infectious organism J18.1 [place] [address] [place] [id number] [address] [place] [address] Oct, COPD exacerbation J44.1 [place] [address] [place] [id number] [address] [place] [phone] Oct, [place] [address] [place] [id number] [place] [address] Oct, COPD exacerbation J44.1 [place] [address] [address] 11 Oct, 2017 Encounter for immunization Z 23 and COPD (chronic obstructive pulmonary disease) J44.[address] [address] 06 Oct, 2017 Medicare annual wellness vis it, subsequent Z00.00 ; History of tobacco use Z87.891 ; Need for Zostavax administration Z23 ; Post-menopausal Z78.0 ; Screening for breast cancer Z12.31 ; Screening for colon cancer Z12.11 ; 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 and Encounter for immunization Z23 [place] [address] [address] Sep, Type 2 diabetes mellitus wit hout complication, without long-term current use of insulin E11.9 [place] [address] [address] Sep, Type 2 diabetes mellitus wit hout complication, without long-term current use of insulin E11.9 ; COPD (chronic obstructive pulmonary disease) J44.9 ; Hypothyroid E03.9 ; GERD (gastroesophageal reflux disease) K21.9 ; CVA (cerebral vascular accident) I63.9 ; Hyperlipidemia LDL goal <100 E78.5 ; Coronary artery disease of [place] heart with stable angina pectoris, unspecified vessel or lesion type I25.118 and 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 [place] [address] [place] [id number] [address] [place] [address] Aug, Type 2 diabetes mellitus wit hout complication, without long-term current use of insulin E11.9 [place] [address] [address] Aug, Hypothyroid E03.9 [place] [address] [address] Aug, Type 2 diabetes mellitus wit hout complication, without long-term current use of insulin E11.9 ; COPD (chronic obstructive pulmonary disease) J44.9 ; Hypothyroid E03.9 ; GERD (gastroesophageal reflux disease) K21.9 ; CVA (cerebral vascular accident) I63.9 ; Hyperlipidemia LDL goal <100 E78.5 ; Coronary artery disease of [place] heart with stable angina pectoris, unspecified vessel or lesion type I25.118 and Encounter for immunization Z23 [place] [address] [address] 12 Jul, 2017 Hypothyroid E03.9 and Hyperc holesterolemia E78.[address] [address] 08 Jul, 2017 Hypothyroid E03.9 ; Diabetes mellitus E11.9 and Hypercholesterolemia E78.[address] [address] Jul, Hypothyroid E03.9 ; Diabetes mellitus E11.9 and Hypercholesterolemia E78.0 [place] [address] [address] May, CVA (cerebral vascular accid ent) I63.9 and Dizziness R42 [place] [address] [address] May, Dehydration E86.0 ; CVA (cer ebral vascular accident) I63.9 ; COPD (chronic obstructive pulmonary disease) J44.9 and Dizziness R42 [place] [address] [address] March, Diabetes mellitus E11.9 ; An roberto at rest I20.8 ; COPD (chronic obstructive pulmonary disease) J44.9 ; GERD (gastroesophageal reflux disease) K21.9 ; Hypercholesterolemia E78.00 ; CVA (cerebral vascular accident) I63.9 and Hypothyroid E03.9 [facility] [address] [id number] [address] [place] [address] Jan, Hypothyroid E03.9 and Diabet es mellitus E11.9 [facility] [address] [id number] [address] [place] [address] Jan, [facility] [address] [id number] [address] [place] [phone] Jan, Diabetes mellitus E11.9 [facility] [address] [facility] [id number] [address] [place] [id number] Jan, [facility] [address] [facility] [id number] [address] [place] [id number] Dec, Diabetes mellitus E11.9 ; CV A (cerebral vascular accident) I63.9 ; COPD (chronic obstructive pulmonary disease) J44.9 ; Hypothyroid E03.9 ; GERD (gastroesophageal reflux disease) K21.9 and Hypercholesterolemia E78.00 [facility] [address] [id number] [address] [place] [address] Nov, Diabetes mellitus E11.9 [facility] [address] [facility] [id number] [address] [place] [phone] Nov, [facility] [address] [facility] [id number] [address] [place] [phone] Nov, [facility] [address] [id number] [address] [place] [address] Nov, [facility] [address] [facility] [id number] [address] [place] [phone] Nov, Diabetes mellitus E11.9 [facility] [address] [facility] [id number] [address] [place] [id number] Oct, Hypothyroid E03.9 [facility] [address] [facility] [id number] [address] [place] [address] Oct, Diabetes mellitus E11.9 [facility] [address] [facility] [id number] [address] [place] [phone] Oct, COPD (chronic obstructive pu lmonary disease) J44.9 [facility] [address] [facility] [id number] [address] [place] [phone] Oct, [place] [address] [address] Sep, Diabetes mellitus E11.9 ; An roberto at rest I20.8 ; Hypercholesterolemia E78.0 ; COPD (chronic obstructive pulmonary disease) J44.9 ; GERD (gastroesophageal reflux disease) K21.9 ; Dysuria R30.0 ; Acquired hypothyroidism E03.9 ; Encounter for immunization Z23 and Acute cystitis without hematuria N30.00 [facility] [address] [place] [id number] [address] [place] [id number] Sep, Diabetes mellitus E11.9 [facility] [address] [facility] [id number] [address] [place] [phone] Aug, [facility] [address] [address] Aug, Diabetes mellitus E11.9 [facility] [address] [place] [id number] [address] [place] [phone] Jun, Angina at rest I20.8 ; CVA ( cerebral vascular accident) I63.9 ; Diabetes mellitus E11.9 ; Hypercholesterolemia E78.0 ; COPD (chronic obstructive pulmonary disease) J44.9 ; GERD (gastroesophageal reflux disease) K21.9 ; Peptic ulcer K27.9 and Hypothyroid E03.9 [facility] [address] [facility] [id number] [address] [place] [id number] Jun, [facility] [address] [place] [id number] [address] [place] [address] May, Diabetes mellitus E11.9 ; CV A (cerebral vascular accident) I63.9 ; COPD (chronic obstructive pulmonary disease) J44.9 and Angina at rest I20.8 [facility] [address] [facility] [id number] [address] [place] [id number] May, [facility] [address] [facility] [id number] [address] [place] [address] May, Diabetes mellitus E11.9 ; Hy pothyroid E03.9 ; Angina at rest I20.8 ; CVA (cerebral vascular accident) I63.9 ; COPD (chronic obstructive pulmonary disease) J44.9 ; GERD (gastroesophageal reflux disease) K21.9 and Hypercholesterolemia E78.0 [place] [address] [facility] [id number] [address] [place] [address] Apr, Hypercholesterolemia E78.0 [place] [address] [facility] [id number] [place] [phone] Apr, [place] [address] [address] March, Diabetes mellitus E11.9 ; Hy pothyroid E03.9 ; Hypercholesterolemia E78.0 ; COPD (chronic obstructive pulmonary disease) J44.9 ; GERD (gastroesophageal reflux disease) K21.9 ; Constipation K59.00 ; CVA (cerebral vascular accident) I63.9 and Angina at rest I20.8 [facility] [address] [facility] [id number] [address] [place] [phone] March, [place] [address] [facility] [id number] [address] [place] [phone] Feb, [facility] [address] [facility] [id number] [address] [place] [phone] Feb, [place] [address] [facility] [id number] [address] [place] [phone] Feb, [place] [address] [place] [id number] [address] [place] [address] Jan, Diabetes mellitus E11.9 ; Hy percholesterolemia E78.0 ; CVA (cerebral vascular accident) I63.9 ; GERD (gastroesophageal reflux disease) K21.9 ; Hypothyroid E03.9 and Angina at rest I20.8 [facility] [address] [facility] [id number] [address] [place] [address] Dec, Diabetes mellitus E11.9 ; Hy pothyroid E03.9 ; Angina at rest I20.8 ; CVA (cerebral vascular accident) I63.9 ; Hypercholesterolemia E78.0 ; COPD (chronic obstructive pulmonary disease) J44.9 ; GERD (gastroesophageal reflux disease) K21.9 and Dysuria R30.0 [facility] [address] [address] Nov, [place] [address] [address] Nov, Hypothyroid E03.9 [place] [address] [address] Nov, Hypothyroid E03.9 ; Angina a t rest I20.8 ; CVA (cerebral vascular accident) I63.9 ; Hypercholesterolemia E78.0 ; COPD (chronic obstructive pulmonary disease) J44.9 ; GERD (gastroesophageal reflux disease) K21.9 and Diabetes E11.9 [facility] [address] [facility] [id number] [address] [place] [address] Oct, Upper respiratory symptom R0 9.89 [facility] [address] [address] Oct, [facility] [address] [id number] Oct, [facility] [address] [place] [id number] [address] [place] [id number] Oct, [place] [address] [id number] Aug, Diabetes mellitus 250.00 ; E ncounter for immunization Z23 ; Hypothyroid E03.9 ; Angina at rest I20.8 ; CVA (cerebral vascular accident) I63.9 ; Hypercholesterolemia E78.0 ; COPD (chronic obstructive pulmonary disease) J44.9 and GERD (gastroesophageal reflux disease) K21.9 [facility] [address] [facility] [id number] [address] [place] [id number] Jul, [facility] [address] [facility] [id number] [address] [place] [phone] Jun, [facility] [address] [place] [id number] [place] [phone] Jun, [facility] [address] [place] [id number] [address] [place] [phone] May, [facility] [address] [place] [id number] [place] [id number] May, Diabetes mellitus 250.00 ; H ypothyroidism 244.9 ; Angina at rest 413.9 ; CVA (cerebral infarction) 434.91 ; Hypercholesterolemia 272.0 ; COPD (chronic obstructive pulmonary disease) 496 and GERD (gastroesophageal reflux disease) 530.81 [facility] [address] [facility] [id number] [address] [place] [id number] Oct, [facility] [address] [facility] [id number] [address] [place] [phone] Oct, [facility] [address] [id number] [place] [phone] Oct, [facility] [address] [facility] [id number] [address] [place] [phone] Oct, [facility] [address] [facility] [id number] [address] [place] [phone] Sep, [facility] [address] [facility] [id number] [address] [place] [phone] Aug, [facility] [address] [id number] [address] [place] [phone] Aug, [facility] [address] [facility] [id number] [address] [place] [id number] Aug, [facility] [address] [id number] [address] [place] [phone] 13 Jul, 2010 [facility] [address] [id number] [address] [place] [phone] 15 Jan, 2010 [facility] [address] [id number] [address] [place] [phone] 30 Oct, 2009 [facility] [address] [facility] [id number] [address] [place] [phone] Oct, [facility] [address] [facility] [id number] [address] [place] [phone] Sep, [facility] [address] [facility] [id number] [address] [place] [phone] Apr, [facility] [address] [facility] [id number] [address] [place] [phone] 10 Dec, 2008 IMMUNIZATIONS No Known Immunizations SOCIAL HISTORY Never Assessed REASON FOR VISIT PLAN OF CARE VITAL SIGNS MEDICATIONS Unknown [...] lobe Pneumonia 02/24/16 Hospitalization History Chest Pain--[facility] 05/03 05/18 Hospitalization History Chest pain--[facility] 06/18/16 Hospitalization History Influenza & COPD exacerbation 12/21 Hospitalization History Cardiac Monitoring 01/2018 Hospitalization History Via [facility] ER, tripped and hit head 04/2018 Hospitalization History [facility]- kidney stones 07/18-07/20 Hospitalization History ER- Bronchitia 01/2019
--- OUTSIDE RECORDS SUMMARY | 2020-01-07 23:20 | XMS REPORT ---
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 Name Role Phone BREN BARTHOLOMEW Unavailable PROBLEMS Type Condition ICD9-CM Code HRI39-WO Code Onset Dates Condition S tatus SNOMED Code Problem COPD (chronic obstructive pulmonary disease) J44.9 Active 11455548 Problem Former smoker Z87.891 Active 350846 6 Problem Hypothyroid E03.9 Active 53248584 Problem GERD (gastroesophageal reflux disease) K21.9 Active 271814913 Problem Constipation K59.00 Active 9616071 8 Problem Angina at rest I20.8 Active 62226 001 Problem Hyperlipidemia LDL goal <100 E78.5 A ctive 18237007 Problem Peptic ulcer K27.9 Active 9899492 3 Problem CVA (cerebral vascular accident) I63.9 Active 430854624 Problem Overweight (BMI 25.0-29.9) E66.3 Act esau 487637397 Problem 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 Active [id number] Problem Sick sinus syndrome I49.5 Active 76823103 Problem 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 Active 4598494107091 Problem Stress incontinence N39.3 Active 45668465 Problem 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 Active 931 381666927 Problem Osteopenia of spine M85.88 Active 536845972 Problem Type 2 diabetes mellitus wit h other specified complication, without long-term current use of insulin E11.69 Active 11927675 Problem Kidney stones N20.0 Active 608774 07 Problem Chronic fatigue R53.82 Active 8422 9001 Problem Anemia of chronic disease D63.8 Acti ve [id number] ALLERGIES No Information ENCOUNTERS Encounter Location Date Diagnosis [facility] [address] [facility] [id number] [address] [address] May, Acute cystitis without hemat uria N30.00 and Acute bilateral low back pain without sciatica M54.5 [facility] [address] [id number] [address] [place] [address] Apr, Type 2 diabetes mellitus wit h other specified complication, without long-term current use of insulin E11.69 [facility] [address] [id number] [address] [place] [address] March, Hyperlipidemia LDL goal <100 E78.5 and Type 2 diabetes mellitus with other specified complication, without long-term current use of insulin E11.69 [place] [address] [id number] [address] [place] [address] March, COPD (chronic obstructive pu lmonary disease) J44.9 [place] [address] [id number] [address] [place] [address] March, [place] [address] [id number] [address] [place] [id number] March, [facility] [address] [id number] [address] [place] [id number] March, Type 2 diabetes mellitus wit h other specified complication, without long-term current use of insulin E11.69 ; Hyperlipidemia LDL goal <100 E78.5 and COPD (chronic obstructive pulmonary disease) J44.9 [place] [address] [id number] [address] [place] [address] March, Type 2 diabetes mellitus wit hout complication, without long-term current use of insulin E11.9 [place] [address] [id number] [address] [place] [address] Feb, COPD exacerbation J44.1 and Candidal intertrigo B37.2 [facility] [address] [id number] [address] [place] [phone] Feb, [facility] [address] [id number] [address] [place] [address] Feb, [facility] [address] [place] [id number] [address] [place] [id number] 10 Feb, 2019 Encounter for Medicare lim[place] wellness exam Z00.00 ; Type 2 diabetes mellitus with other specified complication, without long-term current use of insulin E11.69 ; COPD (chronic obstructive pulmonary disease) J44.9 ; GERD (gastroesophageal reflux disease) K21.9 ; Hyperlipidemia LDL goal <100 E78.5 ; 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 ; 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 ; Osteopenia of spine M85.88 ; Peptic ulcer K27.9 ; Sick sinus syndrome I49.5 and Screening for breast cancer Z12.31 [place] [address] [id number] 05 Feb, 2019 [facility] [address] [id number] 19 Jan, 2019 [place] [address] [address] 18 Jan, 2019 COPD (chronic obstructive pu lmonary disease) J44.9 and Mobility impaired Z74.09 [facility] [address] [id number] 16 Jan, 2019 [facility] [address] [address] 15 Jan, 2019 [place] [address] [address] 14 Jan, 2019 [place] [address] [address] 13 Jan, 2019 Pneumonia of right lower lob e due to infectious organism J18.1 ; Stress incontinence N39.3 and COPD (chronic obstructive pulmonary disease) J44.9 [facility] [address] [place] [id number] [address] [place] [id number] 04 Jan, 2019 [facility] [address] [address] 14 Dec, 2018 Angina at rest I20.8 [place] [address] [facility] [id number] [address] [place] [id number] 05 Dec, 2018 Angina at rest I20.8 [place] [address] [facility] [id number] [address] [place] [id number] Nov, Type 2 diabetes mellitus wit hout complication, without long-term current use of insulin E11.9 ; Bladder dysfunction N31.9 ; Angina at rest I20.8 ; Hypothyroid E03.9 ; Vaginal discharge N89.8 ; GERD (gastroesophageal reflux disease) K21.9 ; 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 ; Abnormal urinalysis R82.90 ; Anemia of chronic disease D63.8 ; Low hemoglobin D64.9 and Chronic fatigue R53.82 [place] [address] [address] Nov, [place] [address] [address] Oct, Hypothyroid E03.9 [place] [address] [place] [id number] [address] [place] [address] Oct, Hypothyroid E03.9 [place] [address] [address] Oct, Hyperlipidemia LDL goal <100 E78.5 [place] [address] [place] [id number] [place] [address] Sep, Type 2 diabetes mellitus wit h other specified complication, without long-term current use of insulin E11.69 and Hypothyroid E03.9 [place] [address] [facility] [id number] [address] [place] [address] Sep, [place] [address] [place] [id number] [place] [address] Sep, Candidal intertrigo B37.2 [place] [address] [place] [id number] [address] [place] [phone] Sep, [facility] [address] [place] [id number] [address] [place] [address] Sep, Yeast dermatitis B37.2 [facility] [address] [address] Sep, Hyperlipidemia LDL goal <100 E78.5 [place] [address] [address] Aug, Encounter for immunization Z 23 [place] [address] [address] Jul, Hypothyroid E03.9 [place] [address] [address] Jul, Type 2 diabetes mellitus wit h other specified complication, without long-term current use of insulin E11.69 ; Kidney stones N20.0 ; Hypothyroid E03.9 ; COPD (chronic obstructive pulmonary disease) J44.9 and Hyperlipidemia LDL goal <100 E78.5 [place] [address] [address] Jun, [place] [address] [address] Jun, [place] [address] [address] Jun, [place] [address] [address] May, [place] [address] [address] Apr, [place] [address] [place] [id number] [place] [address] Apr, Type 2 diabetes mellitus wit hout complication, without long-term current use of insulin E11.9 ; Hypothyroid E03.9 ; Hyperlipidemia LDL goal <100 E78.5 ; Overweight (BMI 25.0-29.9) E66.3 ; Vaginal candidiasis B37.3 ; COPD (chronic obstructive pulmonary disease) J44.9 ; CVA (cerebral vascular accident) I63.9 ; GERD (gastroesophageal reflux disease) K21.9 ; Angina at rest I20.8 and Athscl heart disease of [place] coronary artery 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 [facility] [address] [facility] [id number] [address] [place] [id number] March, Hypothyroid E03.9 [place] [address] [facility] [id number] [address] [place] [address] March, Hypercholesterolemia E78.00 [place] [address] [place] [id number] [place] [address] March, Hypothyroid E03.9 [place] [address] [facility] [id number] [address] [place] [address] March, Hypercholesterolemia E78.00 [place] [address] [place] [id number] [address] [place] [address] Feb, Hypercholesterolemia E78.00 [place] [address] [facility] [id number] [address] [place] [id number] Feb, Type 2 diabetes mellitus wit hout complication, without long-term current use of insulin E11.9 [place] [address] [place] [id number] [address] [place] [address] Feb, Hypothyroid E03.9 [place] [address] [place] [id number] [place] [address] Jan, Hypothyroid E03.9 ; Oxygen d ependent Z99.81 ; Hospital discharge follow-up Z09 ; Type 2 diabetes mellitus without complication, without long-term current use of insulin E11.9 ; 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 and History of CVA (cerebrovascular accident) Z86.73 [place] [address] [place] [id number] [address] [place] [address] Jan, [place] [address] [place] [id number] [place] [address] Jan, [place] [address] [id number] [address] [place] [address] Jan, Type 2 diabetes mellitus wit hout complication, without long-term current use of insulin E11.9 [facility] [address] [facility] [id number] [address] [place] [address] Dec, Hospital discharge follow-up Z09 ; COPD (chronic obstructive pulmonary disease) J44.9 ; Type 2 diabetes mellitus without complication, without long-term current use of insulin E11.9 ; Hypothyroid E03.9 and Vaginal discharge N89.8 [place] [address] [facility] [id number] [address] [place] [address] Dec, Hypothyroid E03.9 [place] [address] [facility] [id number] [address] [place] [address] Dec, Type 2 diabetes mellitus wit hout complication, without long-term current use of insulin E11.9 [place] [address] [facility] [id number] [address] [place] [address] Nov, [place] [address] [facility] [id number] [address] [place] [id number] Nov, [place] [address] [facility] [id number] [address] [place] [address] Nov, Pneumonia of right lower lob e due to infectious organism J18.1 ; Orthopnea R06.01 ; COPD with acute exacerbation J44.1 and Fatigue, unspecified type R53.83 [place] [address] [facility] [id number] [address] [place] [address] Nov, [place] [address] [facility] [id number] [address] [place] [address] Nov, [place] [address] [facility] [id number] [address] [place] [id number] Oct, Pneumonia of right lower lob e due to infectious organism J18.1 [place] [address] [facility] [id number] [address] [place] [phone] Oct, Pneumonia of right lower lob e due to infectious organism J18.1 [place] [address] [facility] [id number] [address] [place] [address] Oct, Pneumonia of right lower lob e due to infectious organism J18.1 [place] [address] [facility] [id number] [address] [place] [id number] Oct, COPD exacerbation J44.1 [place] [address] [place] [id number] [address] [place] [address] Oct, [place] [address] [place] [id number] [address] [place] [address] Oct, COPD exacerbation J44.1 [place] [address] [address] Oct, Encounter for immunization Z 23 and COPD (chronic obstructive pulmonary disease) J44.[address] [address] Oct, Medicare annual wellness vis it, subsequent Z00.00 ; History of tobacco use Z87.891 ; Need for Zostavax administration Z23 ; Post-menopausal Z78.0 ; Screening for breast cancer Z12.31 ; Screening for colon cancer Z12.11 ; 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 and Encounter for immunization Z23 [place] [address] [place] [id number] [address] [place] [address] Sep, Type 2 diabetes mellitus wit hout complication, without long-term current use of insulin E11.9 [place] [address] [place] [id number] [address] [place] [address] Sep, Type 2 diabetes mellitus wit hout complication, without long-term current use of insulin E11.9 ; COPD (chronic obstructive pulmonary disease) J44.9 ; Hypothyroid E03.9 ; GERD (gastroesophageal reflux disease) K21.9 ; CVA (cerebral vascular accident) I63.9 ; Hyperlipidemia LDL goal <100 E78.5 ; Coronary artery disease of [place] heart with stable angina pectoris, unspecified vessel or lesion type I25.118 and 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 [place] [address] [address] 11 Aug, 2017 Type 2 diabetes mellitus wit hout complication, without long-term current use of insulin E11.9 [place] [address] [address] 05 Aug, 2017 Hypothyroid E03.[address] [address] 04 Aug, 2017 Type 2 diabetes mellitus wit hout complication, without long-term current use of insulin E11.9 ; COPD (chronic obstructive pulmonary disease) J44.9 ; Hypothyroid E03.9 ; GERD (gastroesophageal reflux disease) K21.9 ; CVA (cerebral vascular accident) I63.9 ; Hyperlipidemia LDL goal <100 E78.5 ; Coronary artery disease of [place] heart with stable angina pectoris, unspecified vessel or lesion type I25.118 and Encounter for immunization Z23 [address] [address] 12 Jul, 2017 Hypothyroid E03.9 and Hyperc holesterolemia E78.[address] [address] Jul, Hypothyroid E03.9 ; Diabetes mellitus E11.9 and Hypercholesterolemia E78.[address] [address] Jul, Hypothyroid E03.9 ; Diabetes mellitus E11.9 and Hypercholesterolemia E78.0 [place] [address] [address] May, CVA (cerebral vascular accid ent) I63.9 and Dizziness R42 [place] [address] [address] May, Dehydration E86.0 ; CVA (cer ebral vascular accident) I63.9 ; COPD (chronic obstructive pulmonary disease) J44.9 and Dizziness R42 [place] [address] [facility] [id number] [address] [place] [id number] March, Diabetes mellitus E11.9 ; An roberto at rest I20.8 ; COPD (chronic obstructive pulmonary disease) J44.9 ; GERD (gastroesophageal reflux disease) K21.9 ; Hypercholesterolemia E78.00 ; CVA (cerebral vascular accident) I63.9 and Hypothyroid E03.9 [facility] [address] [facility] [id number] [address] [place] [phone] Jan, Hypothyroid E03.9 and Diabet es mellitus E11.9 [facility] [address] [facility] [id number] [address] [place] [id number] Jan, [facility] [address] [facility] [id number] [address] [place] [address] Jan, Diabetes mellitus E11.9 [facility] [address] [facility] [id number] [address] [place] [address] Jan, [facility] [address] [facility] [id number] [address] [place] [address] Dec, Diabetes mellitus E11.9 ; CV A (cerebral vascular accident) I63.9 ; COPD (chronic obstructive pulmonary disease) J44.9 ; Hypothyroid E03.9 ; GERD (gastroesophageal reflux disease) K21.9 and Hypercholesterolemia E78.00 [facility] [address] [facility] [id number] [address] [place] [address] Nov, Diabetes mellitus E11.9 [facility] [address] [facility] [id number] [address] [place] [address] Nov, [facility] [address] [facility] [id number] [address] [place] [id number] Nov, [facility] [address] [facility] [id number] [address] [place] [id number] Nov, [facility] [address] [facility] [id number] [address] [place] [address] Nov, Diabetes mellitus E11.9 [facility] [id number] [place] [address] Oct, Hypothyroid E03.9 [facility] [address] [address] Oct, Diabetes mellitus E11.9 [facility] [address] [address] Oct, COPD (chronic obstructive pu lmonary disease) J44.9 [facility] [address] [address] Oct, [place] [address] [address] Sep, Diabetes mellitus E11.9 ; An roberto at rest I20.8 ; Hypercholesterolemia E78.0 ; COPD (chronic obstructive pulmonary disease) J44.9 ; GERD (gastroesophageal reflux disease) K21.9 ; Dysuria R30.0 ; Acquired hypothyroidism E03.9 ; Encounter for immunization Z23 and Acute cystitis without hematuria N30.00 [facility] [address] [address] Sep, Diabetes mellitus E11.9 [facility] [address] [address] Aug, [facility] [address] [address] Aug, Diabetes mellitus E11.9 [facility] [address] [address] Jun, Angina at rest I20.8 ; CVA ( cerebral vascular accident) I63.9 ; Diabetes mellitus E11.9 ; Hypercholesterolemia E78.0 ; COPD (chronic obstructive pulmonary disease) J44.9 ; GERD (gastroesophageal reflux disease) K21.9 ; Peptic ulcer K27.9 and Hypothyroid E03.9 [facility] [address] [place] [id number] [address] [place] [address] Jun, [facility] [address] [place] [id number] [address] [place] [address] May, Diabetes mellitus E11.9 ; CV A (cerebral vascular accident) I63.9 ; COPD (chronic obstructive pulmonary disease) J44.9 and Angina at rest I20.8 [facility] [address] [id number] [address] [place] [address] May, [facility] [address] [facility] [id number] [address] [place] [address] May, Diabetes mellitus E11.9 ; Hy pothyroid E03.9 ; Angina at rest I20.8 ; CVA (cerebral vascular accident) I63.9 ; COPD (chronic obstructive pulmonary disease) J44.9 ; GERD (gastroesophageal reflux disease) K21.9 and Hypercholesterolemia E78.0 [facility] [address] [facility] [id number] [address] [place] [address] Apr, Hypercholesterolemia E78.0 [facility] [address] [facility] [id number] [address] [place] [id number] Apr, [facility] [address] [facility] [id number] [address] [place] [address] March, Diabetes mellitus E11.9 ; Hy pothyroid E03.9 ; Hypercholesterolemia E78.0 ; COPD (chronic obstructive pulmonary disease) J44.9 ; GERD (gastroesophageal reflux disease) K21.9 ; Constipation K59.00 ; CVA (cerebral vascular accident) I63.9 and Angina at rest I20.8 [facility] [address] [facility] [id number] [address] [place] [address] March, [facility] [address] [facility] [id number] [address] [place] [phone] Feb, [facility] [address] [facility] [id number] [address] [place] [phone] Feb, [facility] [address] [facility] [id number] [address] [place] [phone] Feb, [facility] [address] [facility] [id number] [address] [place] [address] Jan, Diabetes mellitus E11.9 ; Hy percholesterolemia E78.0 ; CVA (cerebral vascular accident) I63.9 ; GERD (gastroesophageal reflux disease) K21.9 ; Hypothyroid E03.9 and Angina at rest I20.8 [facility] [address] [address] Dec, Diabetes mellitus E11.9 ; Hy pothyroid E03.9 ; Angina at rest I20.8 ; CVA (cerebral vascular accident) I63.9 ; Hypercholesterolemia E78.0 ; COPD (chronic obstructive pulmonary disease) J44.9 ; GERD (gastroesophageal reflux disease) K21.9 and Dysuria R30.0 [facility] [address] [address] Nov, [facility] [address] [address] Nov, Hypothyroid E03.9 [facility] [address] [address] Nov, Hypothyroid E03.9 ; Angina a t rest I20.8 ; CVA (cerebral vascular accident) I63.9 ; Hypercholesterolemia E78.0 ; COPD (chronic obstructive pulmonary disease) J44.9 ; GERD (gastroesophageal reflux disease) K21.9 and Diabetes E11.9 [facility] [address] [place] [id number] [address] [place] [id number] Oct, Upper respiratory symptom R0 9.89 [facility] [address] [place] [id number] [place] [address] Oct, [facility] [address] [address] Oct, [facility] [address] [place] [id number] [place] [address] Oct, [facility] [address] [address] Aug, Diabetes mellitus 250.00 ; E ncounter for immunization Z23 ; Hypothyroid E03.9 ; Angina at rest I20.8 ; CVA (cerebral vascular accident) I63.9 ; Hypercholesterolemia E78.0 ; COPD (chronic obstructive pulmonary disease) J44.9 and GERD (gastroesophageal reflux disease) K21.9 [facility] [address] [place] [id number] [address] [place] [address] Jul, [facility] [address] [place] [id number] [place] [id number] Jun, [facility] [id number] [place] [id number] Jun, [facility] [id number] [place] [id number] May, [facility] [id number] [place] [id number] May, Diabetes mellitus 250.00 ; H ypothyroidism 244.9 ; Angina at rest 413.9 ; CVA (cerebral infarction) 434.91 ; Hypercholesterolemia 272.0 ; COPD (chronic obstructive pulmonary disease) 496 and GERD (gastroesophageal reflux disease) 530.81 [facility] [facility] [address] [id number] [address] [place] [phone] Oct, [facility] [address] [id number] [address] [place] [phone] Oct, [facility] [address] [id number] [address] [place] [phone] Oct, [facility] [address] [id number] [address] [place] [phone] Oct, [facility] [address] [phone] Sep, [facility] [address] [id number] [address] [place] [phone] Aug, [facility] [id number] [place] [phone] 15 Aug, 2010 [facility] [address] [id number] [address] [place] [phone] 15 Aug, 2010 [facility] [address] [id number] [address] [place] [phone] 13 Jul, 2010 [facility] [address] [facility] [id number] [address] [place] [phone] Jan, [facility] [address] [facility] [id number] [address] [place] [phone] Oct, [facility] [address] [facility] [id number] [address] [place] [phone] Oct, [facility] [address] [facility] [id number] [address] [place] [phone] Sep, [facility] [address] [facility] [id number] [address] [place] [phone] Apr, [facility] [address] [facility] [id number] [address] [place] [phone] Dec, IMMUNIZATIONS No Known Immunizations SOCIAL HISTORY Never Assessed REASON FOR VISIT FYI PLAN OF CARE VITAL SIGNS MEDICATIONS No Known Medications RESULTS No Results PROCEDURES No Known [...] Pain--[facility] 05/03 05/18 Hospitalization History Chest pain--[facility] 06/18/16 Hospitalization History Influenza & COPD exacerbation 12/21 Hospitalization History Cardiac Monitoring 01/2018 Hospitalization History [facility], tripped and hit head 04/2018 Hospitalization History [facility] kidney stones 07/18-07/20 Hospitalization History ER- Bronchitia 01/2019
--- OUTSIDE RECORDS SUMMARY | 2020-01-07 23:21 | XMS REPORT ---
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 Active 3685288959965 Problem Kidney stones N20.0 Active 043505 07 Problem Type 2 diabetes mellitus wit h other specified complication, without long-term current use of insulin E11.69 Active 56429715 Problem CVA (cerebral vascular accident) I63.9 Active 176153386 Problem Hospital discharge follow-up Z09 A ctive 472624782 Problem Overweight (BMI 25.0-29.9) E66.3 Act esau 766790553 Problem Athscl heart disease of craig coronary artery w/o ang pct rs I25.10 Active [id number] Problem Hypothyroid E03.9 Active 93836122 Problem COPD (chronic obstructive pulmonary disease) J44.9 Active 42383635 Problem Osteopenia of spine M85.88 Active 803106171 Problem Former smoker Z87.891 Active 520553 6 Problem Constipation K59.00 Active 9841489 8 Problem Peptic ulcer K27.9 Active 1962762 3 Problem GERD (gastroesophageal reflux disease) K21.9 Active 809978869 Problem Hyperlipidemia LDL goal <100 E78.5 A ctive 73605154 Problem Angina at rest I20.8 Active 62075 001 Problem Type 2 diabetes mellitus wit hout complication, without long-term current use of insulin E11.9 Active 796449845 ALLERGIES No Information ENCOUNTERS Encounter Location Date Diagnosis [facility] [address] [facility] [id number] [address] [place] [id number] 15 Sep, 2018 [facility] [address] [facility] [id number] [address] [place] [phone] Sep, [facility] [address] [facility] [id number] [address] [place] [phone] Sep, Yeast dermatitis B37.2 [facility] [address] [facility] [id number] [address] [place] [phone] Sep, Hyperlipidemia LDL goal <100 E78.5 [facility] [address] [facility] [id number] [address] [place] [phone] Aug, Encounter for immunization Z 23 [facility] [address] [facility] [id number] [address] [place] [id number] Jul, Hypothyroid E03.9 [facility] [address] [facility] [id number] [address] [place] [phone] Jul, Type 2 diabetes mellitus wit h other specified complication, without long-term current use of insulin E11.69 ; Kidney stones N20.0 ; Hypothyroid E03.9 ; COPD (chronic obstructive pulmonary disease) J44.9 and Hyperlipidemia LDL goal <100 E78.5 [facility] [address] [facility] [id number] [address] [place] [id number] Jun, [facility] [address] [facility] [id number] [address] [place] [phone] Jun, [facility] [address] [facility] [id number] [address] [place] [phone] Jun, [facility] [address] [facility] [id number] [address] [place] [phone] May, [facility] [address] [facility] [id number] [address] [place] [phone] Apr, [facility] [address] [facility] [id number] [address] [place] [phone] Apr, Type 2 diabetes mellitus wit hout complication, without long-term current use of insulin E11.9 ; Hypothyroid E03.9 ; Hyperlipidemia LDL goal <100 E78.5 ; Overweight (BMI 25.0-29.9) E66.3 ; Vaginal candidiasis B37.3 ; COPD (chronic obstructive pulmonary disease) J44.9 ; CVA (cerebral vascular accident) I63.9 ; GERD (gastroesophageal reflux disease) K21.9 ; Angina at rest I20.8 and Athscl heart disease of craig coronary artery 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 [place] [address] [facility] [id number] [address] [place] [phone] March, Hypothyroid E03.9 [place] [address] [facility] [id number] [address] [place] [phone] March, Hypercholesterolemia E78.00 [place] [address] [place] [id number] [address] [place] [phone] March, Hypothyroid E03.9 [place] [address] [place] [id number] [address] [place] [phone] March, Hypercholesterolemia E78.00 [place] [address] [place] [id number] [address] [place] [phone] Feb, Hypercholesterolemia E78.00 [place] [address] [place] [address] [id number] [address] [place] [phone] Feb, Type 2 diabetes mellitus wit hout complication, without long-term current use of insulin E11.9 [place] [address] [place] [id number] [address] [place] [phone] 03 Feb, 2018 Hypothyroid E03.9 [place] [address] [place] [address] [id number] [address] [place] [phone] 14 Jan, 2018 Hypothyroid E03.9 ; Oxygen d ependent Z99.81 ; Hospital discharge follow-up Z09 ; Type 2 diabetes mellitus without complication, without long-term current use of insulin E11.9 ; Atherosclerosis of craig coronary artery of craig heart with angina pectoris I25.119 and History of CVA (cerebrovascular accident) Z86.73 [place] [address] [id number] [address] [place] [phone] Jan, [facility] [address] [facility] [id number] [address] [place] [phone] Jan, [facility] [id number] [place] [phone] Jan, Type 2 diabetes mellitus wit hout complication, without long-term current use of insulin E11.9 [facility] [address] [address] Dec, Hospital discharge follow-up Z09 ; COPD (chronic obstructive pulmonary disease) J44.9 ; Type 2 diabetes mellitus without complication, without long-term current use of insulin E11.9 ; Hypothyroid E03.9 and Vaginal discharge N89.8 [place] [address] [address] Dec, Hypothyroid E03.9 [facility] [address] [address] Dec, Type 2 diabetes mellitus wit hout complication, without long-term current use of insulin E11.9 [facility] [address] [id number] [address] [place] [phone] Nov, [place] [address] [address] Nov, [facility] [address] [id number] [address] [place] [phone] Nov, Pneumonia of right lower lob e due to infectious organism J18.1 ; Orthopnea R06.01 ; COPD with acute exacerbation J44.1 and Fatigue, unspecified type R53.83 [place] [address] [id number] [address] [place] [phone] Nov, [place] [id number] [place] [phone] Nov, [facility] [address] [phone] Oct, Pneumonia of right lower lob e due to infectious organism J18.1 [place] [address] [facility] [id number] [address] [place] [phone] Oct, Pneumonia of right lower lob e due to infectious organism J18.1 [place] [address] [facility] [id number] [address] [place] [phone] Oct, Pneumonia of right lower lob e due to infectious organism J18.1 [place] [address] [facility] [id number] [address] [place] [phone] Oct, COPD exacerbation J44.1 [place] [address] [facility] [id number] [address] [place] [phone] Oct, [place] [address] [facility] [id number] [address] [place] [phone] Oct, COPD exacerbation J44.1 [place] [address] [facility] [id number] [address] [place] [phone] Oct, Encounter for immunization Z 23 and COPD (chronic obstructive pulmonary disease) J44.9 [place] [id number] [place] [address] Oct, Medicare annual wellness vis it, subsequent Z00.00 ; History of tobacco use Z87.891 ; Need for Zostavax administration Z23 ; Post-menopausal Z78.0 ; Screening for breast cancer Z12.31 ; Screening for colon cancer Z12.11 ; 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 and Encounter for immunization Z23 [place] [address] [facility] [id number] [address] [place] [phone] Sep, Type 2 diabetes mellitus wit hout complication, without long-term current use of insulin E11.9 [place] [address] [facility] [id number] [address] [place] [phone] Sep, Type 2 diabetes mellitus wit hout complication, without long-term current use of insulin E11.9 ; COPD (chronic obstructive pulmonary disease) J44.9 ; Hypothyroid E03.9 ; GERD (gastroesophageal reflux disease) K21.9 ; CVA (cerebral vascular accident) I63.9 ; Hyperlipidemia LDL goal <100 E78.5 ; Coronary artery disease of craig heart with stable angina pectoris, unspecified vessel or lesion type I25.118 and 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 [place] [address] [id number] [address] [place] [phone] Aug, Type 2 diabetes mellitus wit hout complication, without long-term current use of insulin E11.9 [place] [address] [place] [address] Aug, Hypothyroid E03.9 [place] [address] [address] Aug, Type 2 diabetes mellitus wit hout complication, without long-term current use of insulin E11.9 ; COPD (chronic obstructive pulmonary disease) J44.9 ; Hypothyroid E03.9 ; GERD (gastroesophageal reflux disease) K21.9 ; CVA (cerebral vascular accident) I63.9 ; Hyperlipidemia LDL goal <100 E78.5 ; Coronary artery disease of craig heart with stable angina pectoris, unspecified vessel or lesion type I25.118 and Encounter for immunization Z23 [place] [address] [address] Jul, Hypothyroid E03.9 and Hyperc holesterolemia E78.00 [place] [address] [id number] [place] [phone] Jul, Hypothyroid E03.9 ; Diabetes mellitus E11.9 and Hypercholesterolemia E78.0 [place] [address] [address] [id number] [address] [place] [phone] Jul, Hypothyroid E03.9 ; Diabetes mellitus E11.9 and Hypercholesterolemia E78.0 [place] [address] [place] [address] [id number] [address] [place] [phone] May, CVA (cerebral vascular accid ent) I63.9 and Dizziness R42 [place] [address] [address] [id number] [address] [place] [phone] May, Dehydration E86.0 ; CVA (cer ebral vascular accident) I63.9 ; COPD (chronic obstructive pulmonary disease) J44.9 and Dizziness R42 [facility] [address] [facility] [id number] [address] [place] [phone] March, Diabetes mellitus E11.9 ; An roberto at rest I20.8 ; COPD (chronic obstructive pulmonary disease) J44.9 ; GERD (gastroesophageal reflux disease) K21.9 ; Hypercholesterolemia E78.00 ; CVA (cerebral vascular accident) I63.9 and Hypothyroid E03.9 [facility] [address] [id number] [address] [place] [phone] Jan, Hypothyroid E03.9 and Diabet es mellitus E11.9 [facility] [address] [facility] [id number] [address] [place] [phone] Jan, [facility] [address] [id number] [address] [place] [phone] Jan, Diabetes mellitus E11.9 [facility] [address] [id number] [address] [place] [phone] Jan, [facility] [address] [facility] [id number] [address] [place] [phone] Dec, Diabetes mellitus E11.9 ; CV A (cerebral vascular accident) I63.9 ; COPD (chronic obstructive pulmonary disease) J44.9 ; Hypothyroid E03.9 ; GERD (gastroesophageal reflux disease) K21.9 and Hypercholesterolemia E78.00 [facility] [address] [id number] [address] [place] [phone] Nov, Diabetes mellitus E11.9 [facility] [address] [id number] [address] [place] [phone] Nov, [facility] [address] [facility] [id number] [address] [place] [phone] Nov, [facility] [address] [facility] [id number] [address] [place] [phone] Nov, [facility] [address] [id number] [address] [place] [phone] Nov, Diabetes mellitus E11.9 [facility] [address] [id number] [address] [place] [phone] Oct, Hypothyroid E03.9 [facility] [address] [facility] [id number] [address] [place] [phone] Oct, Diabetes mellitus E11.9 [facility] [id number] [place] [phone] Oct, COPD (chronic obstructive pu lmonary disease) J44.9 [place] [address] [address] Oct, [place] [address] [address] Sep, Diabetes mellitus E11.9 ; An roberto at rest I20.8 ; Hypercholesterolemia E78.0 ; COPD (chronic obstructive pulmonary disease) J44.9 ; GERD (gastroesophageal reflux disease) K21.9 ; Dysuria R30.0 ; Acquired hypothyroidism E03.9 ; Encounter for immunization Z23 and Acute cystitis without hematuria N30.00 [facility] [address] [id number] [address] [place] [phone] Sep, Diabetes mellitus E11.9 [facility] [address] [facility] [id number] [address] [place] [phone] Aug, [facility] [address] [facility] [id number] [address] [place] [phone] Aug, Diabetes mellitus E11.9 [facility] [address] [place] [id number] [place] [phone] Jun, Angina at rest I20.8 ; CVA ( cerebral vascular accident) I63.9 ; Diabetes mellitus E11.9 ; Hypercholesterolemia E78.0 ; COPD (chronic obstructive pulmonary disease) J44.9 ; GERD (gastroesophageal reflux disease) K21.9 ; Peptic ulcer K27.9 and Hypothyroid E03.9 [facility] [address] [facility] [id number] [address] [place] [phone] Jun, [facility] [address] [facility] [id number] [address] [place] [phone] May, Diabetes mellitus E11.9 ; CV A (cerebral vascular accident) I63.9 ; COPD (chronic obstructive pulmonary disease) J44.9 and Angina at rest I20.8 [place] [id number] [facility] [id number] [address] [place] [phone] May, [place] [address] [facility] [id number] [address] [place] [phone] May, Diabetes mellitus E11.9 ; Hy pothyroid E03.9 ; Angina at rest I20.8 ; CVA (cerebral vascular accident) I63.9 ; COPD (chronic obstructive pulmonary disease) J44.9 ; GERD (gastroesophageal reflux disease) K21.9 and Hypercholesterolemia E78.0 [place] [address] [facility] [id number] [address] [place] [phone] Apr, Hypercholesterolemia E78.0 [place] [address] [facility] [id number] [address] [place] [phone] Apr, [place] [address] [facility] [id number] [address] [place] [address] March, Diabetes mellitus E11.9 ; Hy pothyroid E03.9 ; Hypercholesterolemia E78.0 ; COPD (chronic obstructive pulmonary disease) J44.9 ; GERD (gastroesophageal reflux disease) K21.9 ; Constipation K59.00 ; CVA (cerebral vascular accident) I63.9 and Angina at rest I20.8 [place] [id number] [facility] [id number] [address] [place] [phone] March, [place] [address] [facility] [id number] [address] [place] [phone] Feb, [place] [address] [place] [id number] [address] [place] [phone] Feb, [place] [id number] [address] Feb, [place] [address] [address] Jan, Diabetes mellitus E11.9 ; Hy percholesterolemia E78.0 ; CVA (cerebral vascular accident) I63.9 ; GERD (gastroesophageal reflux disease) K21.9 ; Hypothyroid E03.9 and Angina at rest I20.8 [place] [address] [address] Dec, Diabetes mellitus E11.9 ; Hy pothyroid E03.9 ; Angina at rest I20.8 ; CVA (cerebral vascular accident) I63.9 ; Hypercholesterolemia E78.0 ; COPD (chronic obstructive pulmonary disease) J44.9 ; GERD (gastroesophageal reflux disease) K21.9 and Dysuria R30.0 [place] [address] [address] Nov, [place] [address] [address] Nov, Hypothyroid E03.9 [place] [address] [address] Nov, Hypothyroid E03.9 ; Angina a t rest I20.8 ; CVA (cerebral vascular accident) I63.9 ; Hypercholesterolemia E78.0 ; COPD (chronic obstructive pulmonary disease) J44.9 ; GERD (gastroesophageal reflux disease) K21.9 and Diabetes E11.9 [facility] [address] [address] Oct, Upper respiratory symptom R0 9.89 [place] [address] [address] Oct, [place] [address] [address] Oct, [place] [address] [place] [id number] [address] [place] [address] Oct, [facility] [address] [address] Aug, Diabetes mellitus 250.00 ; E ncounter for immunization Z23 ; Hypothyroid E03.9 ; Angina at rest I20.8 ; CVA (cerebral vascular accident) I63.9 ; Hypercholesterolemia E78.0 ; COPD (chronic obstructive pulmonary disease) J44.9 and GERD (gastroesophageal reflux disease) K21.9 [facility] [address] [address] Jul, [facility] [address] [address] Jun, [place] [address] [address] Jun, [place] [address] [address] May, [facility] [address] [address] May, Diabetes mellitus 250.00 ; H ypothyroidism 244.9 ; Angina at rest 413.9 ; CVA (cerebral infarction) 434.91 ; Hypercholesterolemia 272.0 ; COPD (chronic obstructive pulmonary disease) 496 and GERD (gastroesophageal reflux disease) 530.81 [facility] [address] [place] [id number] [address] [place] [address] Oct, [facility] [address] [place] [id number] [address] [place] [phone] Oct, [place] [address] [phone] Oct, [facility] [address] [place] [id number] [place] [address] Oct, [place] [address] [address] Sep, [facility] [address] [id number] [address] [place] [phone] Aug, [facility] [address] [id number] [address] [place] [phone] Aug, [facility] [address] [id number] [address] [place] [phone] Aug, [facility] [address] [id number] [address] [place] [phone] Jul, [facility] [address] [id number] [address] [place] [phone] Jan, [facility] [address] [id number] [address] [place] [phone] Oct, [facility] [address] [facility] [id number] [address] [place] [phone] Oct, [facility] [address] [id number] [address] [place] [phone] Sep, [facility] [address] [id number] [address] [place] [phone] Apr, [facility] [address] [facility] [id number] [address] [place] [phone] Dec, IMMUNIZATIONS No Known Immunizations SOCIAL HISTORY [...] History Linq insertion/(monitor heart rate) keily porfirio 08/2015 Surgical History heart cath 06/2016 Hospitalization History CABG x3 2007 Hospitalization History Gallbladder 2007 Hospitalization History stent 2006 Hospitalization History Right upper lobe Pneumonia 02/24/16 Hospitalization History Chest Pain--[facility] 05/03 05/18 Hospitalization History Chest pain--[facility] 06/18/16 Hospitalization History Influenza & COPD exacerbation 12/21 Hospitalization History Cardiac Monitoring 01/2018 Hospitalization History Via [facility] [place] [facility], tripped and hit head 04/2018 Hospitalization History [facility] [place]- kidney stones 07/18-07/20
--- OUTSIDE RECORDS SUMMARY | 2020-01-07 23:21 | XMS REPORT ---
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 Active [id number] Problem Kidney stones N20.0 Active 137699 07 Problem Type 2 diabetes mellitus wit h other specified complication, without long-term current use of insulin E11.69 Active 51653873 Problem CVA (cerebral vascular accident) I63.9 Active 597942339 Problem Hospital discharge follow-up Z09 A ctive 668368065 Problem Overweight (BMI 25.0-29.9) E66.3 Act esau 028378957 Problem 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 Active [id number] Problem Hypothyroid E03.9 Active 07743484 Problem COPD (chronic obstructive pulmonary disease) J44.9 Active 39403590 Problem Osteopenia of spine M85.88 Active 385034106 Problem Former smoker Z87.891 Active 548001 6 Problem Constipation K59.00 Active 1219027 8 Problem Peptic ulcer K27.9 Active 5459227 3 Problem GERD (gastroesophageal reflux disease) K21.9 Active 747103858 Problem Hyperlipidemia LDL goal <100 E78.5 A ctive 77934077 Problem Angina at rest I20.8 Active 61554 001 Problem Type 2 diabetes mellitus wit hout complication, without long-term current use of insulin E11.9 Active 940721256 ALLERGIES No Information ENCOUNTERS Encounter Location Date Diagnosis [facility] [address] [facility] [id number] [address] [place] [phone] Oct, Hyperlipidemia LDL goal <100 E78.5 [facility] [address] [facility] [id number] [address] [place] [address] Sep, Type 2 diabetes mellitus wit h other specified complication, without long-term current use of insulin E11.69 and Hypothyroid E03.9 [facility] [address] [facility] [id number] [address] [place] [address] Sep, [facility] [address] [facility] [id number] [address] [place] [phone] Sep, Candidal intertrigo B37.2 [place] [address] [facility] [id number] [place] [phone] Sep, [facility] [address] [facility] [id number] [address] [place] [address] Sep, Yeast dermatitis B37.2 [facility] [address] [facility] [id number] [address] [place] [address] Sep, Hyperlipidemia LDL goal <100 E78.5 [place] [address] [facility] [id number] [address] [place] [address] Aug, Encounter for immunization Z 23 [place] [address] [facility] [id number] [address] [place] [address] Jul, Hypothyroid E03.9 [facility] [address] [facility] [id number] [address] [place] [address] Jul, Type 2 diabetes mellitus wit h other specified complication, without long-term current use of insulin E11.69 ; Kidney stones N20.0 ; Hypothyroid E03.9 ; COPD (chronic obstructive pulmonary disease) J44.9 and Hyperlipidemia LDL goal <100 E78.5 [facility] [address] [facility] [id number] [address] [place] [phone] Jun, [facility] [address] [facility] [id number] [address] [place] [phone] Jun, [facility] [address] [facility] [id number] [address] [place] [phone] Jun, [facility] [address] [facility] [id number] [address] [place] [phone] May, [facility] [address] [place] [id number] [address] [place] [phone] Apr, [place] [address] [place] [id number] [place] [phone] Apr, Type 2 diabetes mellitus wit hout complication, without long-term current use of insulin E11.9 ; Hypothyroid E03.9 ; Hyperlipidemia LDL goal <100 E78.5 ; Overweight (BMI 25.0-29.9) E66.3 ; Vaginal candidiasis B37.3 ; COPD (chronic obstructive pulmonary disease) J44.9 ; CVA (cerebral vascular accident) I63.9 ; GERD (gastroesophageal reflux disease) K21.9 ; Angina at rest I20.8 and 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 [facility] [address] [place] [id number] [address] [place] [address] March, Hypothyroid E03.9 [place] [address] [facility] [id number] [address] [place] [id number] March, Hypercholesterolemia E78.00 [place] [address] [place] [id number] [address] [place] [phone] March, Hypothyroid E03.9 [place] [address] [facility] [id number] [address] [place] [address] March, Hypercholesterolemia E78.00 [facility] [address] [facility] [id number] [address] [place] [phone] Feb, Hypercholesterolemia E78.00 [place] [address] [place] [id number] [address] [place] [phone] Feb, Type 2 diabetes mellitus wit hout complication, without long-term current use of insulin E11.9 [place] [address] [facility] [id number] [address] [place] [phone] 03 Feb, 2018 Hypothyroid E03.9 [facility] [address] [id number] [address] [place] [phone] 14 Jan, 2018 Hypothyroid E03.9 ; Oxygen d ependent Z99.81 ; Hospital discharge follow-up Z09 ; Type 2 diabetes mellitus without complication, without long-term current use of insulin E11.9 ; 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 and History of CVA (cerebrovascular accident) Z86.73 [place] [address] [id number] [address] [place] [address] Jan, [place] [address] [facility] [id number] [address] [place] [phone] Jan, [place] [address] [facility] [id number] [address] [place] [phone] Jan, Type 2 diabetes mellitus wit hout complication, without long-term current use of insulin E11.9 [place] [address] [facility] [id number] [address] [place] [phone] 27 Dec, 2017 Hospital discharge follow-up Z09 ; COPD (chronic obstructive pulmonary disease) J44.9 ; Type 2 diabetes mellitus without complication, without long-term current use of insulin E11.9 ; Hypothyroid E03.9 and Vaginal discharge N89.8 [place] [address] [facility] [id number] [address] [place] [address] Dec, Hypothyroid E03.9 [place] [address] [id number] [address] [place] [phone] Dec, Type 2 diabetes mellitus wit hout complication, without long-term current use of insulin E11.9 [place] [address] [id number] [address] [place] [phone] Nov, [place] [address] [facility] [id number] [address] [place] [phone] Nov, [place] [address] [facility] [id number] [address] [place] [phone] Nov, Pneumonia of right lower lob e due to infectious organism J18.1 ; Orthopnea R06.01 ; COPD with acute exacerbation J44.1 and Fatigue, unspecified type R53.83 [facility] [address] [id number] [address] [place] [address] Nov, [place] [address] [id number] [address] [place] [phone] Nov, [facility] [address] [id number] [address] [place] [address] Oct, Pneumonia of right lower lob e due to infectious organism J18.1 [place] [address] [id number] [address] [place] [address] Oct, Pneumonia of right lower lob e due to infectious organism J18.1 [place] [address] [id number] [address] [place] [address] Oct, Pneumonia of right lower lob e due to infectious organism J18.1 [place] [address] [id number] [address] [place] [phone] Oct, COPD exacerbation J44.1 [place] [address] [id number] [address] [place] [phone] Oct, [place] [address] [id number] [address] [place] [address] Oct, COPD exacerbation J44.1 [place] [address] [id number] [address] [place] [phone] Oct, Encounter for immunization Z 23 and COPD (chronic obstructive pulmonary disease) J44.9 [facility] [address] [facility] [id number] [address] [place] [phone] 06 Oct, 2017 Medicare annual wellness vis it, subsequent Z00.00 ; History of tobacco use Z87.891 ; Need for Zostavax administration Z23 ; Post-menopausal Z78.0 ; Screening for breast cancer Z12.31 ; Screening for colon cancer Z12.11 ; 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 and Encounter for immunization Z23 [place] [address] [facility] [id number] [address] [place] [address] Sep, Type 2 diabetes mellitus wit hout complication, without long-term current use of insulin E11.9 [place] [address] [facility] [id number] [address] [place] [phone] Sep, Type 2 diabetes mellitus wit hout complication, without long-term current use of insulin E11.9 ; COPD (chronic obstructive pulmonary disease) J44.9 ; Hypothyroid E03.9 ; GERD (gastroesophageal reflux disease) K21.9 ; CVA (cerebral vascular accident) I63.9 ; Hyperlipidemia LDL goal <100 E78.5 ; Coronary artery disease of [place] heart with stable angina pectoris, unspecified vessel or lesion type I25.118 and 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 [place] [address] [place] [id number] [address] [place] [address] Aug, Type 2 diabetes mellitus wit hout complication, without long-term current use of insulin E11.9 [place] [address] [place] [id number] [address] [place] [phone] Aug, Hypothyroid E03.9 [place] [address] [place] [id number] [address] [place] [phone] Aug, Type 2 diabetes mellitus wit hout complication, without long-term current use of insulin E11.9 ; COPD (chronic obstructive pulmonary disease) J44.9 ; Hypothyroid E03.9 ; GERD (gastroesophageal reflux disease) K21.9 ; CVA (cerebral vascular accident) I63.9 ; Hyperlipidemia LDL goal <100 E78.5 ; Coronary artery disease of [place] heart with stable angina pectoris, unspecified vessel or lesion type I25.118 and Encounter for immunization Z23 [place] [address] [place] [id number] [address] [place] [phone] Jul, Hypothyroid E03.9 and Hyperc holesterolemia E78.00 [place] [address] [place] [id number] [place] [address] Jul, Hypothyroid E03.9 ; Diabetes mellitus E11.9 and Hypercholesterolemia E78.0 [place] [address] [facility] [id number] [address] [place] [phone] Jul, Hypothyroid E03.9 ; Diabetes mellitus E11.9 and Hypercholesterolemia E78.0 [place] [address] [place] [id number] [address] [place] [phone] May, CVA (cerebral vascular accid ent) I63.9 and Dizziness R42 [facility] [address] [place] [id number] [address] [place] [phone] May, Dehydration E86.0 ; CVA (cer ebral vascular accident) I63.9 ; COPD (chronic obstructive pulmonary disease) J44.9 and Dizziness R42 [place] [address] [place] [id number] [address] [place] [address] March, Diabetes mellitus E11.9 ; An roberto at rest I20.8 ; COPD (chronic obstructive pulmonary disease) J44.9 ; GERD (gastroesophageal reflux disease) K21.9 ; Hypercholesterolemia E78.00 ; CVA (cerebral vascular accident) I63.9 and Hypothyroid E03.9 [place] [address] [place] [id number] [address] [place] [id number] Jan, Hypothyroid E03.9 and Diabet es mellitus E11.9 [place] [address] [place] [id number] [address] [place] [phone] Jan, [place] [address] [place] [id number] [address] [place] [address] Jan, Diabetes mellitus E11.9 [place] [address] [facility] [id number] [address] [place] [address] Jan, [place] [address] [place] [id number] [address] [place] [phone] Dec, Diabetes mellitus E11.9 ; CV A (cerebral vascular accident) I63.9 ; COPD (chronic obstructive pulmonary disease) J44.9 ; Hypothyroid E03.9 ; GERD (gastroesophageal reflux disease) K21.9 and Hypercholesterolemia E78.00 [facility] [address] [facility] [id number] [address] [place] [phone] Nov, Diabetes mellitus E11.9 [facility] [address] [facility] [id number] [address] [place] [phone] Nov, [facility] [address] [facility] [id number] [address] [place] [phone] Nov, [facility] [address] [facility] [id number] [address] [place] [phone] Nov, [facility] [address] [facility] [id number] [address] [address] Nov, Diabetes mellitus E11.9 [facility] [address] [facility] [id number] [address] [place] [address] Oct, Hypothyroid E03.9 [facility] [address] [facility] [id number] [address] [place] [phone] Oct, Diabetes mellitus E11.9 [facility] [address] [facility] [id number] [address] [place] [phone] Oct, COPD (chronic obstructive pu lmonary disease) J44.9 [facility] [address] [facility] [id number] [address] [place] [phone] Oct, [facility] [address] [address] Sep, Diabetes mellitus E11.9 ; An roberto at rest I20.8 ; Hypercholesterolemia E78.0 ; COPD (chronic obstructive pulmonary disease) J44.9 ; GERD (gastroesophageal reflux disease) K21.9 ; Dysuria R30.0 ; Acquired hypothyroidism E03.9 ; Encounter for immunization Z23 and Acute cystitis without hematuria N30.00 [facility] [address] [facility] [id number] [address] [place] [address] Sep, Diabetes mellitus E11.9 [facility] [address] [facility] [id number] [address] [place] [phone] Aug, [facility] [address] [facility] [id number] [address] [place] [address] Aug, Diabetes mellitus E11.9 [facility] [address] [facility] [id number] [address] [place] [address] Jun, Angina at rest I20.8 ; CVA ( cerebral vascular accident) I63.9 ; Diabetes mellitus E11.9 ; Hypercholesterolemia E78.0 ; COPD (chronic obstructive pulmonary disease) J44.9 ; GERD (gastroesophageal reflux disease) K21.9 ; Peptic ulcer K27.9 and Hypothyroid E03.9 [place] [address] [facility] [id number] [address] [place] [address] Jun, [facility] [address] [facility] [id number] [address] [place] [address] May, Diabetes mellitus E11.9 ; CV A (cerebral vascular accident) I63.9 ; COPD (chronic obstructive pulmonary disease) J44.9 and Angina at rest I20.8 [facility] [address] [facility] [id number] [address] [place] [address] May, [facility] [address] [facility] [id number] [address] [place] [address] May, Diabetes mellitus E11.9 ; Hy pothyroid E03.9 ; Angina at rest I20.8 ; CVA (cerebral vascular accident) I63.9 ; COPD (chronic obstructive pulmonary disease) J44.9 ; GERD (gastroesophageal reflux disease) K21.9 and Hypercholesterolemia E78.0 [facility] [address] [facility] [id number] [address] [place] [address] Apr, Hypercholesterolemia E78.0 [facility] [address] [facility] [id number] [address] [place] [phone] Apr, [facility] [address] [facility] [id number] [address] [place] [address] March, Diabetes mellitus E11.9 ; Hy pothyroid E03.9 ; Hypercholesterolemia E78.0 ; COPD (chronic obstructive pulmonary disease) J44.9 ; GERD (gastroesophageal reflux disease) K21.9 ; Constipation K59.00 ; CVA (cerebral vascular accident) I63.9 and Angina at rest I20.8 [place] [address] [address] March, [place] [address] [address] Feb, [place] [address] [address] Feb, [place] [address] [address] Feb, [place] [address] [address] Jan, Diabetes mellitus E11.9 ; Hy percholesterolemia E78.0 ; CVA (cerebral vascular accident) I63.9 ; GERD (gastroesophageal reflux disease) K21.9 ; Hypothyroid E03.9 and Angina at rest I20.8 [place] [address] [address] Dec, Diabetes mellitus E11.9 ; Hy pothyroid E03.9 ; Angina at rest I20.8 ; CVA (cerebral vascular accident) I63.9 ; Hypercholesterolemia E78.0 ; COPD (chronic obstructive pulmonary disease) J44.9 ; GERD (gastroesophageal reflux disease) K21.9 and Dysuria R30.0 [place] [address] [address] Nov, [place] [address] [address] Nov, Hypothyroid E03.9 [place] [address] [place] [id number] [place] [address] Nov, Hypothyroid E03.9 ; Angina a t rest I20.8 ; CVA (cerebral vascular accident) I63.9 ; Hypercholesterolemia E78.0 ; COPD (chronic obstructive pulmonary disease) J44.9 ; GERD (gastroesophageal reflux disease) K21.9 and Diabetes E11.9 [facility] [address] [address] Oct, Upper respiratory symptom R0 9.89 [facility] [address] [phone] Oct, [facility] [address] [address] Oct, [facility] [address] [address] Oct, [place] [address] [address] Aug, Diabetes mellitus 250.00 ; E ncounter for immunization Z23 ; Hypothyroid E03.9 ; Angina at rest I20.8 ; CVA (cerebral vascular accident) I63.9 ; Hypercholesterolemia E78.0 ; COPD (chronic obstructive pulmonary disease) J44.9 and GERD (gastroesophageal reflux disease) K21.9 [place] [address] [address] Jul, [facility] [address] [address] Jun, [facility] [address] [address] Jun, [facility] [address] [address] May, [place] [address] [address] May, Diabetes mellitus 250.00 ; H ypothyroidism 244.9 ; Angina at rest 413.9 ; CVA (cerebral infarction) 434.91 ; Hypercholesterolemia 272.0 ; COPD (chronic obstructive pulmonary disease) 496 and GERD (gastroesophageal reflux disease) 530.81 [facility] [address] [address] 30 Oct, 2010 [facility] [address] [id number] [address] [place] [phone] 19 Oct, 2010 [facility] [address] [id number] [address] [place] [phone] Oct, [facility] [address] [id number] [address] [place] [phone] Oct, [facility] [address] [id number] [address] [place] [phone] Sep, [facility] [address] [id number] [address] [place] [address] Aug, [facility] [address] [id number] [address] [place] [phone] Aug, [facility] [address] [id number] [address] [place] [phone] Aug, [facility] [address] [id number] [address] [place] [id number] Jul, [facility] [address] [id number] [address] [place] [address] Jan, [facility] [address] [id number] [address] [place] [phone] Oct, [facility] [address] [id number] [address] [place] [phone] Oct, [facility] [address] [id number] [address] [place] [phone] Sep, [facility] [address] [id number] [address] [place] [phone] 16 Apr, 2009 [facility] [address] [id number] [address] [place] [phone] 10 Dec, 2008 IMMUNIZATIONS No Known Immunizations SOCIAL HISTORY Never Assessed REASON FOR VISIT refill request PLAN OF CARE VITAL SIGNS MEDICATIONS Medication Instructions Dosage Frequency Start Date End Date Duration S tatus Atorvastatin Calcium 40 mg Orally Once a day at HS 1 tablet 30 days Active RESULTS No Results PROCEDURES [...] Pneumonia 02/24/16 Hospitalization History Chest Pain--[facility] 05/03 05/18 Hospitalization History Chest pain--[facility] 06/18/16 Hospitalization History Influenza & COPD exacerbation 12/21 Hospitalization History Cardiac Monitoring 01/2018 Hospitalization History Via [facility], tripped and hit head 04/2018 Hospitalization History [facility]- kidney stones 07/18-07/20
--- OUTSIDE RECORDS SUMMARY | 2020-01-07 23:21 | XMS REPORT ---
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 Active 3190290603540 Problem Kidney stones N20.0 Active 342434 07 Problem Type 2 diabetes mellitus wit h other specified complication, without long-term current use of insulin E11.69 Active 93652751 Problem CVA (cerebral vascular accident) I63.9 Active 894765992 Problem Hospital discharge follow-up Z09 A ctive 511651921 Problem Overweight (BMI 25.0-29.9) E66.3 Act esau 218017758 Problem 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 Active 500704855012971 Problem Hypothyroid E03.9 Active 38507663 Problem COPD (chronic obstructive pulmonary disease) J44.9 Active 73337797 Problem Osteopenia of spine M85.88 Active 345548888 Problem Former smoker Z87.891 Active 225243 6 Problem Constipation K59.00 Active 0787113 8 Problem Peptic ulcer K27.9 Active 1717839 3 Problem GERD (gastroesophageal reflux disease) K21.9 Active 996998138 Problem Hyperlipidemia LDL goal <100 E78.5 A ctive 29615103 Problem Angina at rest I20.8 Active 21778 001 Problem Type 2 diabetes mellitus wit hout complication, without long-term current use of insulin E11.9 Active 582465011 ALLERGIES No Information ENCOUNTERS Encounter Location Date Diagnosis [facility] [address] [facility] [id number] [address] [place] [address] Oct, [facility] [address] [facility] [id number] [address] [place] [address] Oct, Hypothyroid E03.9 [facility] [address] [facility] [id number] [address] [place] [address] Oct, Hypothyroid E03.9 [facility] [address] [facility] [id number] [address] [place] [address] Oct, Hyperlipidemia LDL goal <100 E78.5 [facility] [address] [facility] [id number] [address] [place] [address] Sep, Type 2 diabetes mellitus wit h other specified complication, without long-term current use of insulin E11.69 and Hypothyroid E03.9 [facility] [address] [facility] [id number] [address] [place] [address] Sep, [facility] [address] [facility] [id number] [address] [place] [address] Sep, Candidal intertrigo B37.2 [facility] [address] [facility] [id number] [address] [place] [address] 14 Sep, 2018 [facility] [address] [facility] [id number] [address] [place] [address] Sep, Yeast dermatitis B37.2 [facility] [address] [facility] [id number] [address] [place] [address] Sep, Hyperlipidemia LDL goal <100 E78.5 [facility] [address] [facility] [id number] [address] [place] [address] 04 Aug, 2018 Encounter for immunization Z 23 [facility] [address] [facility] [id number] [address] [place] [address] 25 Jul, 2018 Hypothyroid E03.9 [facility] [address] [facility] [id number] [address] [place] [address] 18 Jul, 2018 Type 2 diabetes mellitus wit h other specified complication, without long-term current use of insulin E11.69 ; Kidney stones N20.0 ; Hypothyroid E03.9 ; COPD (chronic obstructive pulmonary disease) J44.9 and Hyperlipidemia LDL goal <100 E78.5 [facility] [address] [facility] [id number] [address] [place] [address] Jun, [facility] [address] [facility] [id number] [address] [place] [address] Jun, [facility] [address] [facility] [id number] [address] [place] [address] Jun, [facility] [address] [facility] [id number] [address] [place] [phone] May, [facility] [address] [facility] [id number] [place] [address] Apr, [facility] [address] 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 [id number] [address] [place] [address] March, Hypothyroid E03.9 [facility] [address] [facility] [id number] [address] [place] [address] March, Hypercholesterolemia E78.00 [place] [address] [facility] [id number] [address] [place] [address] March, Hypothyroid E03.9 [facility] [address] [facility] [id number] [address] [place] [address] March, Hypercholesterolemia E78.00 [facility] [address] [facility] [id number] [address] [place] [address] Feb, Hypercholesterolemia E78.00 [facility] [address] [facility] [id number] [address] [place] [address] Feb, Type 2 diabetes mellitus wit hout complication, without long-term current use of insulin E11.9 [place] [address] [facility] [id number] [address] [place] [address] Feb, Hypothyroid E03.9 [place] [address] 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 [id number] [address] [place] [address] Jan, [place] [address] [facility] [id number] [address] [place] [address] Jan, [place] [address] [facility] [id number] [address] [place] [address] Jan, Type 2 diabetes mellitus wit hout complication, without long-term current use of insulin E11.9 [place] [address] [facility] [id number] [address] [place] [address] Dec, Hospital discharge follow-up Z09 ; COPD (chronic obstructive pulmonary disease) J44.9 ; Type 2 diabetes mellitus without complication, without long-term current use of insulin E11.9 ; Hypothyroid E03.9 and Vaginal discharge N89.8 [place] [address] [facility] [id number] [address] [place] [address] Dec, Hypothyroid E03.9 [place] [address] [facility] [id number] [address] [place] [address] Dec, Type 2 diabetes mellitus wit hout complication, without long-term current use of insulin E11.9 [facility] [address] [id number] [address] [place] [address] Nov, [facility] [address] [id number] [address] [place] [address] Nov, [facility] [address] [id number] [address] [place] [address] Nov, Pneumonia of right lower lob e due to infectious organism J18.1 ; Orthopnea R06.01 ; COPD with acute exacerbation J44.1 and Fatigue, unspecified type R53.83 [facility] [address] [id number] [address] [place] [address] Nov, [facility] [address] [id number] [address] [place] [address] Nov, [facility] [address] [id number] [address] [place] [address] Oct, Pneumonia of right lower lob e due to infectious organism J18.1 [facility] [address] [id number] [address] [place] [address] Oct, Pneumonia of right lower lob e due to infectious organism J18.1 [facility] [address] [id number] [address] [place] [phone] Oct, Pneumonia of right lower lob e due to infectious organism J18.1 [facility] [address] [id number] [address] [place] [address] Oct, COPD exacerbation J44.1 [facility] [address] [id number] [address] [place] [address] Oct, [facility] [address] [id number] [address] [place] [address] Oct, COPD exacerbation J44.1 [facility] [address] [id number] [address] [place] [address] Oct, Encounter for immunization Z 23 and COPD (chronic obstructive pulmonary disease) J44.9 [place] [address] [phone] 06 Oct, 2017 Medicare annual wellness vis it, subsequent Z00.00 ; History of tobacco use Z87.891 ; Need for Zostavax administration Z23 ; Post-menopausal Z78.0 ; Screening for breast cancer Z12.31 ; Screening for colon cancer Z12.11 ; 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 and Encounter for immunization Z23 [place] [address] [address] Sep, Type 2 diabetes mellitus wit hout complication, without long-term current use of insulin E11.9 [place] [address] [address] Sep, Type 2 diabetes mellitus wit hout complication, without long-term current use of insulin E11.9 ; COPD (chronic obstructive pulmonary disease) J44.9 ; Hypothyroid E03.9 ; GERD (gastroesophageal reflux disease) K21.9 ; CVA (cerebral vascular accident) I63.9 ; Hyperlipidemia LDL goal <100 E78.5 ; Coronary artery disease of [place] heart with stable angina pectoris, unspecified vessel or lesion type I25.118 and 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 [place] [address] [place] [id number] [address] [place] [address] Aug, Type 2 diabetes mellitus wit hout complication, without long-term current use of insulin E11.9 [place] [address] [place] [id number] [address] [place] [address] Aug, Hypothyroid E03.9 [place] [address] [place] [id number] [place] [address] Aug, Type 2 diabetes mellitus wit hout complication, without long-term current use of insulin E11.9 ; COPD (chronic obstructive pulmonary disease) J44.9 ; Hypothyroid E03.9 ; GERD (gastroesophageal reflux disease) K21.9 ; CVA (cerebral vascular accident) I63.9 ; Hyperlipidemia LDL goal <100 E78.5 ; Coronary artery disease of [place] heart with stable angina pectoris, unspecified vessel or lesion type I25.118 and Encounter for immunization Z23 [place] [address] [id number] 12 Jul, 2017 Hypothyroid E03.9 and Hyperc holesterolemia E78.00 [place] [address] [phone] 08 Jul, 2017 Hypothyroid E03.9 ; Diabetes mellitus E11.9 and Hypercholesterolemia E78.0 [place] [address] [address] Jul, Hypothyroid E03.9 ; Diabetes mellitus E11.9 and Hypercholesterolemia E78.0 [place] [address] [address] May, CVA (cerebral vascular accid ent) I63.9 and Dizziness R42 [place] [address] [address] May, Dehydration E86.0 ; CVA (cer ebral vascular accident) I63.9 ; COPD (chronic obstructive pulmonary disease) J44.9 and Dizziness R42 [place] [address] [address] March, Diabetes mellitus E11.9 ; An roberto at rest I20.8 ; COPD (chronic obstructive pulmonary disease) J44.9 ; GERD (gastroesophageal reflux disease) K21.9 ; Hypercholesterolemia E78.00 ; CVA (cerebral vascular accident) I63.9 and Hypothyroid E03.9 [place] [address] [address] Jan, Hypothyroid E03.9 and Diabet es mellitus E11.9 [place] [address] [place] [id number] [place] [address] Jan, [place] [address] [address] Jan, Diabetes mellitus E11.9 [facility] [address] [facility] [id number] [address] [place] [address] Jan, [facility] [address] [facility] [id number] [address] [place] [address] Dec, Diabetes mellitus E11.9 ; CV A (cerebral vascular accident) I63.9 ; COPD (chronic obstructive pulmonary disease) J44.9 ; Hypothyroid E03.9 ; GERD (gastroesophageal reflux disease) K21.9 and Hypercholesterolemia E78.00 [facility] [address] [facility] [id number] [address] [place] [address] Nov, Diabetes mellitus E11.9 [facility] [address] [facility] [id number] [address] [place] [address] Nov, [facility] [address] [facility] [id number] [address] [place] [address] Nov, [facility] [address] [facility] [id number] [address] [place] [address] Nov, [facility] [address] [facility] [id number] [address] [place] [address] Nov, Diabetes mellitus E11.9 [facility] [address] [facility] [id number] [address] [place] [address] Oct, Hypothyroid E03.9 [facility] [address] [facility] [id number] [address] [place] [address] Oct, Diabetes mellitus E11.9 [facility] [address] [facility] [id number] [address] [place] [address] Oct, COPD (chronic obstructive pu lmonary disease) J44.9 [facility] [address] [facility] [id number] [address] [place] [address] Oct, [facility] [address] [facility] [id number] [address] [place] [address] Sep, Diabetes mellitus E11.9 ; An roberto at rest I20.8 ; Hypercholesterolemia E78.0 ; COPD (chronic obstructive pulmonary disease) J44.9 ; GERD (gastroesophageal reflux disease) K21.9 ; Dysuria R30.0 ; Acquired hypothyroidism E03.9 ; Encounter for immunization Z23 and Acute cystitis without hematuria N30.00 [facility] [address] [facility] [id number] [address] [place] [address] Sep, Diabetes mellitus E11.9 [facility] [address] [facility] [id number] [address] [place] [address] Aug, [facility] [address] [facility] [id number] [address] [place] [address] Aug, Diabetes mellitus E11.9 [facility] [address] [facility] [id number] [address] [place] [address] Jun, Angina at rest I20.8 ; CVA ( cerebral vascular accident) I63.9 ; Diabetes mellitus E11.9 ; Hypercholesterolemia E78.0 ; COPD (chronic obstructive pulmonary disease) J44.9 ; GERD (gastroesophageal reflux disease) K21.9 ; Peptic ulcer K27.9 and Hypothyroid E03.9 [facility] [address] [facility] [id number] [address] [place] [address] Jun, [facility] [address] [facility] [id number] [address] [place] [address] May, Diabetes mellitus E11.9 ; CV A (cerebral vascular accident) I63.9 ; COPD (chronic obstructive pulmonary disease) J44.9 and Angina at rest I20.8 [facility] [address] [facility] [id number] [address] [place] [address] May, [facility] [address] [facility] [id number] [address] [place] [address] May, Diabetes mellitus E11.9 ; Hy pothyroid E03.9 ; Angina at rest I20.8 ; CVA (cerebral vascular accident) I63.9 ; COPD (chronic obstructive pulmonary disease) J44.9 ; GERD (gastroesophageal reflux disease) K21.9 and Hypercholesterolemia E78.0 [place] [address] [address] Apr, Hypercholesterolemia E78.0 [place] [address] [address] Apr, [place] [address] [address] March, Diabetes mellitus E11.9 ; Hy pothyroid E03.9 ; Hypercholesterolemia E78.0 ; COPD (chronic obstructive pulmonary disease) J44.9 ; GERD (gastroesophageal reflux disease) K21.9 ; Constipation K59.00 ; CVA (cerebral vascular accident) I63.9 and Angina at rest I20.8 [place] [address] [address] March, [place] [address] [address] Feb, [place] [address] [address] Feb, [place] [address] [address] Feb, [place] [address] [address] Jan, Diabetes mellitus E11.9 ; Hy percholesterolemia E78.0 ; CVA (cerebral vascular accident) I63.9 ; GERD (gastroesophageal reflux disease) K21.9 ; Hypothyroid E03.9 and Angina at rest I20.8 [place] [address] [address] Dec, Diabetes mellitus E11.9 ; Hy pothyroid E03.9 ; Angina at rest I20.8 ; CVA (cerebral vascular accident) I63.9 ; Hypercholesterolemia E78.0 ; COPD (chronic obstructive pulmonary disease) J44.9 ; GERD (gastroesophageal reflux disease) K21.9 and Dysuria R30.0 [place] [address] [address] Nov, [facility] [address] [facility] [id number] [address] [place] [address] Nov, Hypothyroid E03.9 [facility] [address] [facility] [id number] [address] [place] [address] Nov, Hypothyroid E03.9 ; Angina a t rest I20.8 ; CVA (cerebral vascular accident) I63.9 ; Hypercholesterolemia E78.0 ; COPD (chronic obstructive pulmonary disease) J44.9 ; GERD (gastroesophageal reflux disease) K21.9 and Diabetes E11.9 [facility] [address] [facility] [id number] [address] [place] [address] Oct, Upper respiratory symptom R0 9.89 [facility] [address] [place] [id number] [address] [place] [address] Oct, [facility] [address] [place] [id number] [place] [address] Oct, [facility] [address] [place] [id number] [address] [place] [address] Oct, [facility] [address] [place] [id number] [place] [address] Aug, Diabetes mellitus 250.00 ; E ncounter for immunization Z23 ; Hypothyroid E03.9 ; Angina at rest I20.8 ; CVA (cerebral vascular accident) I63.9 ; Hypercholesterolemia E78.0 ; COPD (chronic obstructive pulmonary disease) J44.9 and GERD (gastroesophageal reflux disease) K21.9 [facility] [address] [facility] [id number] [address] [place] [address] Jul, [facility] [address] [place] [id number] [address] [place] [address] Jun, [facility] [address] [place] [id number] [address] [place] [address] Jun, [facility] [address] [place] [id number] [address] [place] [address] May, [facility] [address] [facility] [id number] [address] [place] [address] May, Diabetes mellitus 250.00 ; H ypothyroidism 244.9 ; Angina at rest 413.9 ; CVA (cerebral infarction) 434.91 ; Hypercholesterolemia 272.0 ; COPD (chronic obstructive pulmonary disease) 496 and GERD (gastroesophageal reflux disease) 530.81 [facility] [address] [id number] [address] [place] [address] Oct, [facility] [address] [id number] [address] [place] [address] Oct, [facility] [address] [id number] [address] [place] [address] Oct, [facility] [address] [id number] [address] [place] [address] Oct, [facility] [address] [id number] [address] [place] [address] Sep, [facility] [address] [id number] [address] [place] [address] Aug, [facility] [address] [id number] [address] [place] [address] Aug, [facility] [address] [facility] [id number] [address] [place] [address] Aug, [facility] [address] [id number] [address] [place] [address] Jul, [facility] [address] [id number] [address] [place] [address] Jan, [facility] [address] [id number] [address] [place] [address] Oct, [facility] [address] [id number] [address] [place] [address] Oct, [facility] [address] [id number] [address] [place] [address] Sep, [facility] [address] [facility] [id number] [address] [address] Apr, [facility] [address] [facility] [id number] [address] [place] [address] Dec, IMMUNIZATIONS No Known Immunizations SOCIAL HISTORY Never Assessed REASON FOR VISIT PLAN OF CARE VITAL SIGNS MEDICATIONS Medication Instructions Dosage Frequency Start Date End Date Duration S jaleel Levothyroxine Sodium 112 MCG Orally Once a day 1 tablet on an empty stomach in the morning 24h Oct, 90 days Active RESULTS No Results PROCEDURES [...] lobe Pneumonia 02/24/16 Hospitalization History Chest Pain--[facility] 05/03 05/18 Hospitalization History Chest pain--[facility] 06/18/16 Hospitalization History Influenza & COPD exacerbation 12/21 Hospitalization History Cardiac Monitoring 01/2018 Hospitalization History Via [facility], tripped and hit head 04/2018 Hospitalization History [facility]- kidney stones 07/18-07/20
--- OUTSIDE RECORDS SUMMARY | 2020-01-07 23:21 | XMS REPORT ---
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 Active 2888089731480 Problem Kidney stones N20.0 Active 928720 07 Problem Type 2 diabetes mellitus wit h other specified complication, without long-term current use of insulin E11.69 Active 62286789 Problem CVA (cerebral vascular accident) I63.9 Active 623206025 Problem Hospital discharge follow-up Z09 A ctive 075007511 Problem Overweight (BMI 25.0-29.9) E66.3 Act esau 417508305 Problem 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 Active [id number] Problem Hypothyroid E03.9 Active 23368209 Problem COPD (chronic obstructive pulmonary disease) J44.9 Active 66901236 Problem Osteopenia of spine M85.88 Active 608591167 Problem Former smoker Z87.891 Active 888203 6 Problem Constipation K59.00 Active 9556996 8 Problem Peptic ulcer K27.9 Active 3375782 3 Problem GERD (gastroesophageal reflux disease) K21.9 Active 369858049 Problem Hyperlipidemia LDL goal <100 E78.5 A ctive 23800662 Problem Angina at rest I20.8 Active 43109 001 Problem Type 2 diabetes mellitus wit hout complication, without long-term current use of insulin E11.9 Active 831679465 ALLERGIES No Information ENCOUNTERS Encounter Location Date Diagnosis [facility] [address] [facility] [id number] [address] [place] [phone] Sep, Type 2 diabetes mellitus wit h other specified complication, without long-term current use of insulin E11.69 and Hypothyroid E03.9 [facility] [address] [facility] [id number] [address] [place] [phone] Sep, [facility] [address] [facility] [id number] [address] [place] [phone] Sep, Candidal intertrigo B37.2 [facility] [address] [facility] [id number] [address] [place] [phone] Sep, [facility] [address] [facility] [id number] [address] [place] [phone] Sep, Yeast dermatitis B37.2 [facility] [address] [facility] [id number] [address] [place] [phone] Sep, Hyperlipidemia LDL goal <100 E78.5 [facility] [address] [facility] [id number] [address] [place] [phone] Aug, Encounter for immunization Z 23 [facility] [address] [facility] [id number] [address] [place] [phone] Jul, Hypothyroid E03.9 [facility] [address] [facility] [id number] [address] [place] [phone] 18 Jul, 2018 Type 2 diabetes mellitus wit h other specified complication, without long-term current use of insulin E11.69 ; Kidney stones N20.0 ; Hypothyroid E03.9 ; COPD (chronic obstructive pulmonary disease) J44.9 and Hyperlipidemia LDL goal <100 E78.5 [facility] [address] [facility] [id number] [address] [place] [phone] Jun, [facility] [address] [facility] [id number] [address] [place] [phone] Jun, [facility] [address] [facility] [id number] [address] [place] [phone] Jun, [facility] [address] [facility] [id number] [address] [place] [phone] May, [facility] [address] [id number] [address] [place] [phone] Apr, [facility] [address] [facility] [id number] [address] [place] [phone] Apr, Type 2 diabetes mellitus wit hout complication, without long-term current use of insulin E11.9 ; Hypothyroid E03.9 ; Hyperlipidemia LDL goal <100 E78.5 ; Overweight (BMI 25.0-29.9) E66.3 ; Vaginal candidiasis B37.3 ; COPD (chronic obstructive pulmonary disease) J44.9 ; CVA (cerebral vascular accident) I63.9 ; GERD (gastroesophageal reflux disease) K21.9 ; Angina at rest I20.8 and Athscl heart disease of [place] coronary artery 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 [place] [address] [facility] [id number] [address] [place] [phone] March, Hypothyroid E03.9 [place] [address] [id number] [address] [place] [phone] March, Hypercholesterolemia E78.00 [place] [address] [facility] [id number] [address] [place] [phone] March, Hypothyroid E03.9 [place] [address] [facility] [id number] [address] [place] [phone] March, Hypercholesterolemia E78.00 [place] [address] [facility] [id number] [address] [place] [phone] Feb, Hypercholesterolemia E78.00 [facility] [address] [id number] [address] [place] [phone] Feb, Type 2 diabetes mellitus wit hout complication, without long-term current use of insulin E11.9 [facility] [address] [id number] [address] [place] [phone] Feb, Hypothyroid E03.9 [place] [address] [facility] [id number] [address] [place] [phone] Jan, Hypothyroid E03.9 ; Oxygen d ependent Z99.81 ; Hospital discharge follow-up Z09 ; Type 2 diabetes mellitus without complication, without long-term current use of insulin E11.9 ; 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 and History of CVA (cerebrovascular accident) Z86.73 [place] [address] [id number] [address] [place] [phone] Jan, [place] [address] [id number] [address] [place] [phone] Jan, [place] [address] [id number] [address] [place] [phone] Jan, Type 2 diabetes mellitus wit hout complication, without long-term current use of insulin E11.9 [place] [address] [facility] [id number] [address] [place] [phone] 27 Dec, 2017 Hospital discharge follow-up Z09 ; COPD (chronic obstructive pulmonary disease) J44.9 ; Type 2 diabetes mellitus without complication, without long-term current use of insulin E11.9 ; Hypothyroid E03.9 and Vaginal discharge N89.8 [place] [address] [id number] [address] [place] [phone] Dec, Hypothyroid E03.9 [place] [address] [id number] [address] [place] [phone] Dec, Type 2 diabetes mellitus wit hout complication, without long-term current use of insulin E11.9 [place] [address] [id number] [address] [place] [phone] Nov, [place] [address] [id number] [address] [place] [phone] Nov, [place] [address] [id number] [address] [place] [phone] Nov, Pneumonia of right lower lob e due to infectious organism J18.1 ; Orthopnea R06.01 ; COPD with acute exacerbation J44.1 and Fatigue, unspecified type R53.83 [facility] [address] [id number] [address] [place] [phone] Nov, [facility] [address] [id number] [address] [place] [phone] Nov, [facility] [address] [id number] [address] [place] [phone] Oct, Pneumonia of right lower lob e due to infectious organism J18.1 [facility] [address] [id number] [address] [place] [phone] Oct, Pneumonia of right lower lob e due to infectious organism J18.1 [place] [address] [id number] [address] [place] [phone] Oct, Pneumonia of right lower lob e due to infectious organism J18.1 [place] [address] [id number] [address] [place] [phone] Oct, COPD exacerbation J44.1 [place] [address] [id number] [address] [place] [phone] Oct, [place] [address] [id number] [address] [place] [phone] Oct, COPD exacerbation J44.1 [place] [address] [id number] [address] [place] [phone] Oct, Encounter for immunization Z 23 and COPD (chronic obstructive pulmonary disease) J44.9 [place] [address] [id number] [address] [place] [phone] Oct, Medicare annual wellness vis it, subsequent Z00.00 ; History of tobacco use Z87.891 ; Need for Zostavax administration Z23 ; Post-menopausal Z78.0 ; Screening for breast cancer Z12.31 ; Screening for colon cancer Z12.11 ; 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 and Encounter for immunization Z23 [place] [address] [id number] [address] [place] [phone] Sep, Type 2 diabetes mellitus wit hout complication, without long-term current use of insulin E11.9 [place] [address] [place] [id number] [place] [phone] Sep, Type 2 diabetes mellitus wit hout [...] lesion type I25.118 and 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 [place] [address] [address] Aug, Type 2 diabetes mellitus wit hout complication, without long-term current use of insulin E11.9 [place] [address] [phone] Aug, Hypothyroid E03.9 [place] [address] [place] [id number] [place] [phone] Aug, Type 2 diabetes mellitus wit hout [...] type I25.118 and Encounter for immunization Z23 [place] [address] [place] [id number] [address] [place] [phone] Jul, Hypothyroid E03.9 and Hyperc holesterolemia E78.00 [place] [address] [place] [id number] [place] [phone] Jul, Hypothyroid E03.9 ; Diabetes mellitus E11.9 and Hypercholesterolemia E78.0 [place] [address] [place] [id number] [place] [address] Jul, Hypothyroid E03.9 ; Diabetes mellitus E11.9 and Hypercholesterolemia E78.0 [place] [address] [facility] [id number] [address] [place] [phone] May, CVA (cerebral vascular accid ent) I63.9 and Dizziness R42 [facility] [address] [facility] [id number] [address] [place] [phone] May, Dehydration E86.0 ; CVA (cer ebral vascular accident) I63.9 ; COPD (chronic obstructive pulmonary disease) J44.9 and Dizziness R42 [place] [address] [facility] [id number] [address] [place] [phone] March, Diabetes mellitus E11.9 ; An roberto at rest I20.8 ; COPD (chronic obstructive pulmonary disease) J44.9 ; GERD (gastroesophageal reflux disease) K21.9 ; Hypercholesterolemia E78.00 ; CVA (cerebral vascular accident) I63.9 and Hypothyroid E03.9 [place] [address] [facility] [id number] [address] [place] [phone] Jan, Hypothyroid E03.9 and Diabet es mellitus E11.9 [place] [address] [facility] [id number] [address] [place] [phone] Jan, [place] [address] [facility] [id number] [address] [place] [phone] Jan, Diabetes mellitus E11.9 [place] [address] [facility] [id number] [address] [place] [phone] Jan, [place] [address] [facility] [id number] [address] [place] [id number] Dec, Diabetes mellitus E11.9 ; CV A (cerebral vascular accident) I63.9 ; COPD (chronic obstructive pulmonary disease) J44.9 ; Hypothyroid E03.9 ; GERD (gastroesophageal reflux disease) K21.9 and Hypercholesterolemia E78.00 [facility] [address] [facility] [id number] [address] [place] [phone] Nov, Diabetes mellitus E11.9 [facility] [address] [facility] [id number] [address] [place] [phone] Nov, [facility] [address] [facility] [id number] [address] [place] [phone] Nov, [facility] [address] [facility] [id number] [address] [place] [phone] Nov, [facility] [address] [facility] [id number] [address] [place] [phone] Nov, Diabetes mellitus E11.9 [facility] [address] [facility] [id number] [address] [place] [phone] Oct, Hypothyroid E03.9 [facility] [address] [facility] [id number] [address] [place] [phone] Oct, Diabetes mellitus E11.9 [facility] [address] [facility] [id number] [place] [phone] Oct, COPD (chronic obstructive pu lmonary disease) J44.9 [facility] [address] [facility] [id number] [address] [place] [phone] Oct, [facility] [address] [facility] [id number] [place] [phone] Sep, Diabetes mellitus E11.9 ; An roberto at rest I20.8 ; Hypercholesterolemia E78.0 ; COPD (chronic obstructive pulmonary disease) J44.9 ; GERD (gastroesophageal reflux disease) K21.9 ; Dysuria R30.0 ; Acquired hypothyroidism E03.9 ; Encounter for immunization Z23 and Acute cystitis without hematuria N30.00 [facility] [address] [facility] [id number] [address] [place] [phone] Sep, Diabetes mellitus E11.9 [facility] [address] [facility] [id number] [address] [place] [phone] Aug, [facility] [address] [facility] [id number] [address] [place] [phone] Aug, Diabetes mellitus E11.9 [place] [address] [phone] Jun, Angina at rest I20.8 ; CVA ( cerebral vascular accident) I63.9 ; Diabetes mellitus E11.9 ; Hypercholesterolemia E78.0 ; COPD (chronic obstructive pulmonary disease) J44.9 ; GERD (gastroesophageal reflux disease) K21.9 ; Peptic ulcer K27.9 and Hypothyroid E03.9 [place] [address] [phone] Jun, [place] [address] [phone] May, Diabetes mellitus E11.9 ; CV A (cerebral vascular accident) I63.9 ; COPD (chronic obstructive pulmonary disease) J44.9 and Angina at rest I20.8 [place] [address] [address] May, [place] [address] [address] May, Diabetes mellitus E11.9 ; Hy pothyroid E03.9 ; Angina at rest I20.8 ; CVA (cerebral vascular accident) I63.9 ; COPD (chronic obstructive pulmonary disease) J44.9 ; GERD (gastroesophageal reflux disease) K21.9 and Hypercholesterolemia E78.0 [place] [address] [phone] Apr, Hypercholesterolemia E78.0 [place] [address] [place] [id number] [place] [phone] Apr, [address] [address] March, Diabetes mellitus E11.9 ; Hy pothyroid E03.9 ; Hypercholesterolemia E78.0 ; COPD (chronic obstructive pulmonary disease) J44.9 ; GERD (gastroesophageal reflux disease) K21.9 ; Constipation K59.00 ; CVA (cerebral vascular accident) I63.9 and Angina at rest I20.8 [place] [address] [place] [id number] [address] [place] [phone] March, [facility] [address] [address] Feb, [place] [address] [address] Feb, [place] [address] [address] Feb, [place] [address] [address] Jan, Diabetes mellitus E11.9 ; Hy percholesterolemia E78.0 ; CVA (cerebral vascular accident) I63.9 ; GERD (gastroesophageal reflux disease) K21.9 ; Hypothyroid E03.9 and Angina at rest I20.8 [place] [address] [address] Dec, Diabetes mellitus E11.9 ; Hy pothyroid E03.9 ; Angina at rest I20.8 ; CVA (cerebral vascular accident) I63.9 ; Hypercholesterolemia E78.0 ; COPD (chronic obstructive pulmonary disease) J44.9 ; GERD (gastroesophageal reflux disease) K21.9 and Dysuria R30.0 [place] [address] [place] [id number] [address] [place] [address] Nov, [place] [address] [address] Nov, Hypothyroid E03.9 [place] [address] [address] Nov, Hypothyroid E03.9 ; Angina a t rest I20.8 ; CVA (cerebral vascular accident) I63.9 ; Hypercholesterolemia E78.0 ; COPD (chronic obstructive pulmonary disease) J44.9 ; GERD (gastroesophageal reflux disease) K21.9 and Diabetes E11.9 [facility] [address] [address] Oct, Upper respiratory symptom R0 9.89 [place] [address] [address] Oct, [place] [address] [address] Oct, [place] [address] [address] Oct, [place] [address] [address] Aug, Diabetes mellitus 250.00 ; E ncounter for immunization Z23 ; Hypothyroid E03.9 ; Angina at rest I20.8 ; CVA (cerebral vascular accident) I63.9 ; Hypercholesterolemia E78.0 ; COPD (chronic obstructive pulmonary disease) J44.9 and GERD (gastroesophageal reflux disease) K21.9 [place] [address] [address] Jul, [place] [address] [address] Jun, [place] [address] [address] Jun, [place] [address] [address] May, [place] [address] [address] May, Diabetes mellitus 250.00 ; H ypothyroidism 244.9 ; Angina at rest 413.9 ; CVA (cerebral infarction) 434.91 ; Hypercholesterolemia 272.0 ; COPD (chronic obstructive pulmonary disease) 496 and GERD (gastroesophageal reflux disease) 530.81 [place] [address] [address] Oct, [place] [address] [address] Oct, [facility] [address] [id number] [address] [place] [phone] Oct, [facility] [address] [id number] [address] [place] [phone] Oct, [facility] [address] [id number] [address] [place] [phone] Sep, [facility] [address] [id number] [address] [place] [phone] Aug, [facility] [address] [id number] [address] [place] [phone] Aug, [facility] [address] [id number] [address] [place] [phone] Aug, [facility] [address] [id number] [address] [place] [phone] Jul, [facility] [address] [id number] [address] [place] [phone] Jan, [facility] [address] [id number] [address] [place] [phone] Oct, [facility] [address] [id number] [address] [place] [phone] Oct, [facility] [address] [id number] [address] [place] [phone] Sep, [facility] [address] [id number] [address] [place] [phone] Apr, [facility] [address] [id number] [address] [place] [phone] Dec, IMMUNIZATIONS No Known Immunizations SOCIAL HISTORY Never Assessed REASON FOR VISIT refill request PLAN OF CARE VITAL SIGNS MEDICATIONS Medication Instructions Dosage Frequency Start Date End Date Duration S jaleel Janumet 50-1000 mg Orally Twice a day 1 tablet with meals 12h Active Levothyroxine Sodium 88 MCG Orally Once a day 1 tablet on an empty stomach in the morning 24h March, Active RESULTS No Results PROCEDURES No Known [...] lobe Pneumonia 02/24/16 Hospitalization History Chest Pain--[facility] 05/03 05/18 Hospitalization History Chest pain--[facility] 06/18/16 Hospitalization History Influenza & COPD exacerbation 12/21 Hospitalization History Cardiac Monitoring 01/2018 Hospitalization History Via [facility], tripped and hit head 04/2018 Hospitalization History [facility]- kidney stones 07/18-07/20
--- OUTSIDE RECORDS SUMMARY | 2020-01-07 23:21 | XMS REPORT ---
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 Active [id number] Problem Kidney stones N20.0 Active 623671 07 Problem Type 2 diabetes mellitus wit h other specified complication, without long-term current use of insulin E11.69 Active 47048781 Problem CVA (cerebral vascular accident) I63.9 Active 018035506 Problem Hospital discharge follow-up Z09 A ctive 856913580 Problem Overweight (BMI 25.0-29.9) E66.3 Act esau 177059238 Problem 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 Active [id number] Problem Hypothyroid E03.9 Active 38158266 Problem COPD (chronic obstructive pulmonary disease) J44.9 Active 57246258 Problem Osteopenia of spine M85.88 Active 553054245 Problem Former smoker Z87.891 Active 302638 6 Problem Constipation K59.00 Active 1696519 8 Problem Peptic ulcer K27.9 Active 9684143 3 Problem GERD (gastroesophageal reflux disease) K21.9 Active 501364828 Problem Hyperlipidemia LDL goal <100 E78.5 A ctive 09029271 Problem Angina at rest I20.8 Active 32138 001 Problem Type 2 diabetes mellitus wit hout complication, without long-term current use of insulin E11.9 Active 308757677 ALLERGIES No Information ENCOUNTERS Encounter Location Date Diagnosis [facility] [place] [address] [facility] [id number] [address] [place] [id number] Oct, [facility] [place] [address] [facility] [id number] [address] [place] [phone] Oct, Hypothyroid E03.9 [facility] [place] [address] [facility] [id number] [address] [place] [id number] Oct, Hyperlipidemia LDL goal <100 E78.5 [place] [address] [place] [id number] [address] [place] [phone] Sep, Type 2 diabetes mellitus wit h other specified complication, without long-term current use of insulin E11.69 and Hypothyroid E03.9 [place] [address] [facility] [id number] [place] [phone] Sep, [facility] [place] [address] [place] [id number] [address] [place] [phone] Sep, Candidal intertrigo B37.2 [place] [address] [place] [id number] [address] [place] [phone] 14 Sep, 2018 [facility] [address] [facility] [id number] [address] [place] [phone] Sep, Yeast dermatitis B37.2 [facility] [place] [address] [place] [id number] [address] [place] [phone] Sep, Hyperlipidemia LDL goal <100 E78.5 [place] [address] [place] [id number] [address] [place] [phone] 04 Aug, 2018 Encounter for immunization Z 23 [place] [address] [facility] [id number] [address] [place] [phone] Jul, Hypothyroid E03.9 [place] [address] [facility] [id number] [address] [place] [id number] 18 Jul, 2018 Type 2 diabetes mellitus wit h other specified complication, without long-term current use of insulin E11.69 ; Kidney stones N20.0 ; Hypothyroid E03.9 ; COPD (chronic obstructive pulmonary disease) J44.9 and Hyperlipidemia LDL goal <100 E78.5 [facility] [place] [address] [facility] [id number] [address] [place] [id number] Jun, [facility] [place] [address] [facility] [id number] [address] [place] [phone] Jun, [facility] [place] [address] [facility] [id number] [address] [place] [id number] Jun, [facility] [place] [address] [facility] [id number] [place] [phone] May, [facility] [place] [address] [facility] [id number] [address] [place] [id number] Apr, [facility] [place] [address] [facility] [id number] [place] [phone] Apr, Type 2 diabetes mellitus wit hout complication, without long-term current use of insulin E11.9 ; Hypothyroid E03.9 ; Hyperlipidemia LDL goal <100 E78.5 ; Overweight (BMI 25.0-29.9) E66.3 ; Vaginal candidiasis B37.3 ; COPD (chronic obstructive pulmonary disease) J44.9 ; CVA (cerebral vascular accident) I63.9 ; GERD (gastroesophageal reflux disease) K21.9 ; Angina at rest I20.8 and 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 [facility] [place] [address] [facility] [id number] [address] [place] [id number] March, Hypothyroid E03.9 [facility] [place] [address] [facility] [id number] [address] [place] [phone] March, Hypercholesterolemia E78.00 [facility] [place] [address] [facility] [id number] [address] [place] [id number] March, Hypothyroid E03.9 [facility] [place] [address] [facility] [id number] [address] [place] [id number] March, Hypercholesterolemia E78.00 [facility] [place] [address] [facility] [id number] [address] [place] [phone] Feb, Hypercholesterolemia E78.00 [place] [address] [facility] [id number] [address] [place] [phone] Feb, Type 2 diabetes mellitus wit hout complication, without long-term current use of insulin E11.9 [place] [address] [facility] [id number] [address] [place] [phone] Feb, Hypothyroid E03.9 [place] [address] [facility] [id number] [address] [place] [phone] Jan, Hypothyroid E03.9 ; Oxygen d ependent Z99.81 ; Hospital discharge follow-up Z09 ; Type 2 diabetes mellitus without complication, without long-term current use of insulin E11.9 ; 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 and History of CVA (cerebrovascular accident) Z86.73 [place] [address] [facility] [id number] [address] [place] [phone] Jan, [place] [address] [facility] [id number] [address] [place] [phone] Jan, [place] [address] [facility] [id number] [address] [place] [phone] Jan, Type 2 diabetes mellitus wit hout complication, without long-term current use of insulin E11.9 [place] [address] [facility] [id number] [address] [place] [phone] Dec, Hospital discharge follow-up Z09 ; COPD (chronic obstructive pulmonary disease) J44.9 ; Type 2 diabetes mellitus without complication, without long-term current use of insulin E11.9 ; Hypothyroid E03.9 and Vaginal discharge N89.8 [place] [address] [id number] [address] [place] [id number] Dec, Hypothyroid E03.9 [place] [address] [facility] [id number] [address] [place] [phone] Dec, Type 2 diabetes mellitus wit hout complication, without long-term current use of insulin E11.9 [place] [address] [id number] [address] [place] [id number] Nov, [facility] [place] [address] [id number] [address] [place] [phone] Nov, [facility] [place] [address] [id number] [address] [place] [id number] Nov, Pneumonia of right lower lob e due to infectious organism J18.1 ; Orthopnea R06.01 ; COPD with acute exacerbation J44.1 and Fatigue, unspecified type R53.83 [facility] [place] [address] [id number] [address] [place] [phone] Nov, [facility] [place] [address] [id number] [address] [place] [phone] Nov, [facility] [place] [address] [facility] [id number] [address] [place] [phone] Oct, Pneumonia of right lower lob e due to infectious organism J18.1 [facility] [place] [address] [id number] [address] [place] [phone] Oct, Pneumonia of right lower lob e due to infectious organism J18.1 [facility] [place] [address] [id number] [address] [place] [phone] Oct, Pneumonia of right lower lob e due to infectious organism J18.1 [facility] [place] [address] [id number] [address] [place] [id number] Oct, COPD exacerbation J44.1 [facility] [place] [address] [id number] [address] [place] [id number] Oct, [facility] [place] [address] [id number] [address] [place] [phone] Oct, COPD exacerbation J44.1 [facility] [place] [address] [id number] [address] [place] [phone] Oct, Encounter for immunization Z 23 and COPD (chronic obstructive pulmonary disease) J44.9 [facility] [place] [address] [id number] [place] [phone] 06 Oct, 2017 Medicare annual wellness vis it, subsequent Z00.00 ; History of tobacco use Z87.891 ; Need for Zostavax administration Z23 ; Post-menopausal Z78.0 ; Screening for breast cancer Z12.31 ; Screening for colon cancer Z12.11 ; 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 and Encounter for immunization Z23 [place] [address] [address] Sep, Type 2 diabetes mellitus wit hout complication, without long-term current use of insulin E11.9 [place] [address] [address] Sep, Type 2 diabetes mellitus wit hout complication, without long-term current use of insulin E11.9 ; COPD (chronic obstructive pulmonary disease) J44.9 ; Hypothyroid E03.9 ; GERD (gastroesophageal reflux disease) K21.9 ; CVA (cerebral vascular accident) I63.9 ; Hyperlipidemia LDL goal <100 E78.5 ; Coronary artery 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 stable angina pectoris, unspecified vessel or lesion type I25.118 and 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 [place] [address] [address] Aug, Type 2 diabetes mellitus wit hout complication, without long-term current use of insulin E11.9 [place] [address] [address] Aug, Hypothyroid E03.9 [place] [address] [address] 04 Aug, 2017 Type 2 diabetes mellitus wit hout complication, without long-term current use of insulin E11.9 ; COPD (chronic obstructive pulmonary disease) J44.9 ; Hypothyroid E03.9 ; GERD (gastroesophageal reflux disease) K21.9 ; CVA (cerebral vascular accident) I63.9 ; Hyperlipidemia LDL goal <100 E78.5 ; Coronary artery 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 stable angina pectoris, unspecified vessel or lesion type I25.118 and Encounter for immunization Z23 [place] [address] [place] [id number] [address] [place] [id number] 12 Jul, 2017 Hypothyroid E03.9 and Hyperc holesterolemia E78.00 [place] [address] [place] [id number] [place] [phone] 08 Jul, 2017 Hypothyroid E03.9 ; Diabetes mellitus E11.9 and Hypercholesterolemia E78.0 [place] [address] [place] [id number] [place] [phone] Jul, Hypothyroid E03.9 ; Diabetes mellitus E11.9 and Hypercholesterolemia E78.0 [place] [address] [id number] May, CVA (cerebral vascular accid ent) I63.9 and Dizziness R42 [place] [address] [phone] May, Dehydration E86.0 ; CVA (cer ebral vascular accident) I63.9 ; COPD (chronic obstructive pulmonary disease) J44.9 and Dizziness R42 [place] [address] [id number] March, Diabetes mellitus E11.9 ; An roberto at rest I20.8 ; COPD (chronic obstructive pulmonary disease) J44.9 ; GERD (gastroesophageal reflux disease) K21.9 ; Hypercholesterolemia E78.00 ; CVA (cerebral vascular accident) I63.9 and Hypothyroid E03.9 [place] [address] [place] [id number] [address] [place] [phone] Jan, Hypothyroid E03.9 and Diabet es mellitus E11.9 [place] [address] [place] [id number] [address] [place] [phone] Jan, [place] [address] [place] [id number] [place] [phone] Jan, Diabetes mellitus E11.9 [place] [address] [place] [id number] [address] [place] [phone] Jan, [facility] [place] [address] [facility] [id number] [address] [place] [phone] Dec, Diabetes mellitus E11.9 ; CV A (cerebral vascular accident) I63.9 ; COPD (chronic obstructive pulmonary disease) J44.9 ; Hypothyroid E03.9 ; GERD (gastroesophageal reflux disease) K21.9 and Hypercholesterolemia E78.00 [facility] [place] [address] [facility] [id number] [address] [place] [phone] Nov, Diabetes mellitus E11.9 [facility] [place] [address] [facility] [id number] [address] [place] [phone] Nov, [facility] [place] [address] [facility] [id number] [address] [place] [phone] Nov, [facility] [place] [address] [facility] [id number] [address] [place] [phone] Nov, [facility] [place] [address] [facility] [id number] [address] [place] [phone] Nov, Diabetes mellitus E11.9 [facility] [place] [address] [facility] [id number] [address] [place] [phone] Oct, Hypothyroid E03.9 [facility] [place] [address] [facility] [id number] [address] [place] [phone] Oct, Diabetes mellitus E11.9 [facility] [place] [address] [facility] [id number] [address] [place] [phone] Oct, COPD (chronic obstructive pu lmonary disease) J44.9 [facility] [place] [address] [facility] [id number] [address] [place] [phone] Oct, [facility] [place] [address] [facility] [id number] [address] [place] [phone] Sep, Diabetes mellitus E11.9 ; An roberto at rest I20.8 ; Hypercholesterolemia E78.0 ; COPD (chronic obstructive pulmonary disease) J44.9 ; GERD (gastroesophageal reflux disease) K21.9 ; Dysuria R30.0 ; Acquired hypothyroidism E03.9 ; Encounter for immunization Z23 and Acute cystitis without hematuria N30.00 [facility] [place] [address] [facility] [id number] [address] [place] [phone] Sep, Diabetes mellitus E11.9 [facility] [address] [facility] [id number] [address] [place] [phone] Aug, [facility] [place] [address] [facility] [id number] [address] [place] [phone] Aug, Diabetes mellitus E11.9 [facility] [place] [address] [facility] [id number] [address] [place] [id number] Jun, Angina at rest I20.8 ; CVA ( cerebral vascular accident) I63.9 ; Diabetes mellitus E11.9 ; Hypercholesterolemia E78.0 ; COPD (chronic obstructive pulmonary disease) J44.9 ; GERD (gastroesophageal reflux disease) K21.9 ; Peptic ulcer K27.9 and Hypothyroid E03.9 [facility] [place] [address] [facility] [id number] [address] [place] [id number] Jun, [facility] [place] [address] [facility] [id number] [address] [place] [phone] May, Diabetes mellitus E11.9 ; CV A (cerebral vascular accident) I63.9 ; COPD (chronic obstructive pulmonary disease) J44.9 and Angina at rest I20.8 [facility] [place] [address] [facility] [id number] [address] [place] [phone] May, [facility] [place] [address] [facility] [id number] [address] [place] [phone] May, Diabetes mellitus E11.9 ; Hy pothyroid E03.9 ; Angina at rest I20.8 ; CVA (cerebral vascular accident) I63.9 ; COPD (chronic obstructive pulmonary disease) J44.9 ; GERD (gastroesophageal reflux disease) K21.9 and Hypercholesterolemia E78.0 [facility] [place] [address] [facility] [id number] [address] [place] [phone] Apr, Hypercholesterolemia E78.0 [place] [id number] [phone] Apr, [place] [id number] [address] March, Diabetes mellitus E11.9 ; Hy pothyroid E03.9 ; Hypercholesterolemia E78.0 ; COPD (chronic obstructive pulmonary disease) J44.9 ; GERD (gastroesophageal reflux disease) K21.9 ; Constipation K59.00 ; CVA (cerebral vascular accident) I63.9 and Angina at rest I20.8 [place] [address] [address] March, [place] [address] [address] Feb, [place] [address] [address] Feb, [place] [address] [address] Feb, [place] [address] [address] Jan, Diabetes mellitus E11.9 ; Hy percholesterolemia E78.0 ; CVA (cerebral vascular accident) I63.9 ; GERD (gastroesophageal reflux disease) K21.9 ; Hypothyroid E03.9 and Angina at rest I20.8 [place] [address] [address] Dec, Diabetes mellitus E11.9 ; Hy pothyroid E03.9 ; Angina at rest I20.8 ; CVA (cerebral vascular accident) I63.9 ; Hypercholesterolemia E78.0 ; COPD (chronic obstructive pulmonary disease) J44.9 ; GERD (gastroesophageal reflux disease) K21.9 and Dysuria R30.0 [place] [address] [address] Nov, [place] [address] [address] Nov, Hypothyroid E03.9 [facility] [place] [address] [facility] [id number] [address] [place] [phone] Nov, Hypothyroid E03.9 ; Angina a t rest I20.8 ; CVA (cerebral vascular accident) I63.9 ; Hypercholesterolemia E78.0 ; COPD (chronic obstructive pulmonary disease) J44.9 ; GERD (gastroesophageal reflux disease) K21.9 and Diabetes E11.9 [facility] [address] [facility] [id number] [address] [place] [phone] Oct, Upper respiratory symptom R0 9.89 [facility] [place] [address] [place] [id number] [place] [phone] Oct, [facility] [place] [address] [place] [id number] [place] [phone] Oct, [facility] [place] [address] [address] Oct, [facility] [place] [address] [id number] Aug, Diabetes mellitus 250.00 ; E ncounter for immunization Z23 ; Hypothyroid E03.9 ; Angina at rest I20.8 ; CVA (cerebral vascular accident) I63.9 ; Hypercholesterolemia E78.0 ; COPD (chronic obstructive pulmonary disease) J44.9 and GERD (gastroesophageal reflux disease) K21.9 [facility] [place] [id number] [place] [id number] Jul, [facility] [place] [id number] [place] [phone] Jun, [facility] [place] [address] [id number] Jun, [facility] [place] [id number] [place] [phone] May, [facility] [place] [id number] [place] [id number] May, Diabetes mellitus 250.00 ; H ypothyroidism 244.9 ; Angina at rest 413.9 ; CVA (cerebral infarction) 434.91 ; Hypercholesterolemia 272.0 ; COPD (chronic obstructive pulmonary disease) 496 and GERD (gastroesophageal reflux disease) 530.81 [facility] [place] [address] [id number] [address] [place] [id number] 30 Oct, 2010 [facility] [place] [address] [id number] [address] [place] [phone] Oct, [facility] [place] [address] [id number] [address] [place] [id number] Oct, [facility] [place] [address] [id number] [address] [place] [phone] Oct, [facility] [place] [address] [facility] [id number] [address] [place] [id number] Sep, [facility] [place] [address] [id number] [address] [place] [phone] Aug, [facility] [place] [address] [id number] [address] [place] [id number] 15 Aug, 2010 [facility] [place] [address] [facility] [id number] [address] [place] [phone] Aug, [facility] [place] [address] [facility] [id number] [address] [place] [phone] Jul, [facility] [place] [address] [id number] [address] [place] [id number] Jan, [facility] [place] [address] [id number] [address] [place] [phone] Oct, [facility] [place] [address] [facility] [id number] [address] [place] [phone] Oct, [facility] [place] [address] [facility] [id number] [address] [place] [phone] Sep, [facility] [place] [address] [facility] [id number] [address] [place] [phone] Apr, [facility] [place] [address] [facility] [id number] [address] [place] [phone] 10 Dec, 2008 IMMUNIZATIONS No Known Immunizations SOCIAL HISTORY Never Assessed REASON FOR VISIT lab PLAN OF CARE Activity Details Pending Test TSH VITAL SIGNS MEDICATIONS Unknown Medications RESULTS No Results PROCEDURES Procedure Date Ordered Result Body Site LAB NOT BILLED BY [facility] Oct 07, 2018 VENIPUNCT, ROUTINE* Oct 07, 2018 INSTRUCTIONS MEDICATIONS ADMINISTERED No Known Medications [...] lobe Pneumonia 02/24/16 Hospitalization History Chest Pain--Via [facility] 05/03 05/18 Hospitalization History Chest pain--[facility] 06/18/16 Hospitalization History Influenza & COPD exacerbation 12/21 Hospitalization History Cardiac Monitoring 01/2018 Hospitalization History Via [facility] ER, tripped and hit head 04/2018 Hospitalization History Via [facility]- kidney stones 07/18-07/20
--- OUTSIDE RECORDS SUMMARY | 2020-01-07 23:22 | XMS REPORT ---
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 Active 2242557617168 Problem Kidney stones N20.0 Active 319966 07 Problem Type 2 diabetes mellitus wit h other specified complication, without long-term current use of insulin E11.69 Active 97967856 Problem CVA (cerebral vascular accident) I63.9 Active 998292402 Problem Hospital discharge follow-up Z09 A ctive 884667522 Problem Overweight (BMI 25.0-29.9) E66.3 Act esau 947299909 Problem 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 Active [id number] Problem Hypothyroid E03.9 Active 25902050 Problem COPD (chronic obstructive pulmonary disease) J44.9 Active 32259769 Problem Osteopenia of spine M85.88 Active 205510067 Problem Former smoker Z87.891 Active 670455 6 Problem Constipation K59.00 Active 0529660 8 Problem Peptic ulcer K27.9 Active 3052691 3 Problem GERD (gastroesophageal reflux disease) K21.9 Active 932066232 Problem Hyperlipidemia LDL goal <100 E78.5 A ctive 94956569 Problem Angina at rest I20.8 Active 91734 001 Problem Type 2 diabetes mellitus wit hout complication, without long-term current use of insulin E11.9 Active 234509528 ALLERGIES Substance Reaction Event Type Date Status Ultram hives Drug Allergy Sep, Active Fentanyl hives Drug Allergy Sep, Active ENCOUNTERS Encounter Location Date Diagnosis [facility] [address] [id number] [address] [place] [phone] Sep, Yeast dermatitis B37.2 [facility] [address] [id number] [address] [place] [phone] Sep, Hyperlipidemia LDL goal <100 E78.5 [facility] [address] [address] Aug, Encounter for immunization Z 23 [facility] [address] [address] Jul, Hypothyroid E03.9 [facility] [address] [address] Jul, Type 2 diabetes mellitus wit h other specified complication, without long-term current use of insulin E11.69 ; Kidney stones N20.0 ; Hypothyroid E03.9 ; COPD (chronic obstructive pulmonary disease) J44.9 and Hyperlipidemia LDL goal <100 E78.5 [facility] [address] [address] Jun, [facility] [address] [address] Jun, [facility] [address] [address] Jun, [facility] [address] [id number] [address] [place] [phone] May, [facility] [address] [id number] [address] [place] [phone] Apr, [facility] [id number] [place] [phone] Apr, Type 2 diabetes mellitus wit hout complication, without long-term current use of insulin E11.9 ; Hypothyroid E03.9 ; Hyperlipidemia LDL goal <100 E78.5 ; Overweight (BMI 25.0-29.9) E66.3 ; Vaginal candidiasis B37.3 ; COPD (chronic obstructive pulmonary disease) J44.9 ; CVA (cerebral vascular accident) I63.9 ; GERD (gastroesophageal reflux disease) K21.9 ; Angina at rest I20.8 and 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 [place] [id number] [facility] [id number] [address] [place] [phone] March, Hypothyroid E03.9 [place] [address] [id number] [address] [place] [phone] March, Hypercholesterolemia E78.00 [place] [address] [facility] [id number] [address] [place] [phone] March, Hypothyroid E03.9 [place] [address] [facility] [id number] [address] [place] [phone] March, Hypercholesterolemia E78.00 [place] [address] [facility] [id number] [address] [place] [phone] Feb, Hypercholesterolemia E78.00 [place] [address] [facility] [id number] [address] [place] [phone] Feb, Type 2 diabetes mellitus wit hout complication, without long-term current use of insulin E11.9 [place] [address] [facility] [id number] [address] [place] [phone] Feb, Hypothyroid E03.9 [place] [address] [facility] [id number] [address] [place] [phone] 14 Jan, 2018 Hypothyroid E03.9 ; Oxygen d ependent Z99.81 ; Hospital discharge follow-up Z09 ; Type 2 diabetes mellitus without complication, without long-term current use of insulin E11.9 ; 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 and History of CVA (cerebrovascular accident) Z86.73 [place] [address] [facility] [id number] [address] [place] [phone] Jan, [place] [address] [facility] [id number] [address] [place] [phone] Jan, [facility] [address] [id number] [address] [place] [phone] Jan, Type 2 diabetes mellitus wit hout complication, without long-term current use of insulin E11.9 [facility] [address] [id number] [address] [place] [phone] Dec, Hospital discharge follow-up Z09 ; COPD (chronic obstructive pulmonary disease) J44.9 ; Type 2 diabetes mellitus without complication, without long-term current use of insulin E11.9 ; Hypothyroid E03.9 and Vaginal discharge N89.8 [facility] [address] [id number] [address] [place] [phone] Dec, Hypothyroid E03.9 [facility] [address] [id number] [address] [place] [phone] Dec, Type 2 diabetes mellitus wit hout complication, without long-term current use of insulin E11.9 [facility] [address] [id number] [address] [place] [phone] Nov, [facility] [address] [id number] [address] [place] [phone] Nov, [facility] [address] [id number] [address] [place] [phone] Nov, Pneumonia of right lower lob e due to infectious organism J18.1 ; Orthopnea R06.01 ; COPD with acute exacerbation J44.1 and Fatigue, unspecified type R53.83 [facility] [address] [id number] [address] [place] [phone] Nov, [facility] [address] [id number] [address] [place] [phone] Nov, [facility] [address] [id number] [address] [place] [phone] Oct, Pneumonia of right lower lob e due to infectious organism J18.1 [facility] [address] [address] Oct, Pneumonia of right lower lob e due to infectious organism J18.1 [place] [address] [address] Oct, Pneumonia of right lower lob e due to infectious organism J18.1 [place] [address] [address] Oct, COPD exacerbation J44.1 [place] [address] [address] Oct, [place] [address] [address] Oct, COPD exacerbation J44.1 [place] [address] [address] Oct, Encounter for immunization Z 23 and COPD (chronic obstructive pulmonary disease) J44.9 [place] [address] [address] Oct, Medicare annual wellness vis it, subsequent Z00.00 ; History of tobacco use Z87.891 ; Need for Zostavax administration Z23 ; Post-menopausal Z78.0 ; Screening for breast cancer Z12.31 ; Screening for colon cancer Z12.11 ; 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 and Encounter for immunization Z23 [address] [address] Sep, Type 2 diabetes mellitus wit hout complication, without long-term current use of insulin E11.9 [place] [id number] [place] [address] Sep, Type 2 diabetes mellitus wit hout complication, without long-term current use of insulin E11.9 ; COPD (chronic obstructive pulmonary disease) J44.9 ; Hypothyroid E03.9 ; GERD (gastroesophageal reflux disease) K21.9 ; CVA (cerebral vascular accident) I63.9 ; Hyperlipidemia LDL goal <100 E78.5 ; Coronary artery disease of [place] heart with stable angina pectoris, unspecified vessel or lesion type I25.118 and 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 [place] [address] [address] Aug, Type 2 diabetes mellitus wit hout complication, without long-term current use of insulin E11.9 [place] [id number] [place] [phone] Aug, Hypothyroid E03.9 [place] [address] [id number] Aug, Type 2 diabetes mellitus wit hout complication, without long-term current use of insulin E11.9 ; COPD (chronic obstructive pulmonary disease) J44.9 ; Hypothyroid E03.9 ; GERD (gastroesophageal reflux disease) K21.9 ; CVA (cerebral vascular accident) I63.9 ; Hyperlipidemia LDL goal <100 E78.5 ; Coronary artery disease of [place] heart with stable angina pectoris, unspecified vessel or lesion type I25.118 and Encounter for immunization Z23 [place] [address] [id number] 12 Jul, 2017 Hypothyroid E03.9 and Hyperc holesterolemia E78.00 [place] [address] [address] Jul, Hypothyroid E03.9 ; Diabetes mellitus E11.9 and Hypercholesterolemia E78.0 [place] [address] [address] Jul, Hypothyroid E03.9 ; Diabetes mellitus E11.9 and Hypercholesterolemia E78.0 [place] [address] [id number] [address] [place] [phone] May, CVA (cerebral vascular accid ent) I63.9 and Dizziness R42 [place] [address] [id number] [address] [place] [phone] May, Dehydration E86.0 ; CVA (cer ebral vascular accident) I63.9 ; COPD (chronic obstructive pulmonary disease) J44.9 and Dizziness R42 [facility] [address] [facility] [id number] [address] [place] [address] March, Diabetes mellitus E11.9 ; An roberto at rest I20.8 ; COPD (chronic obstructive pulmonary disease) J44.9 ; GERD (gastroesophageal reflux disease) K21.9 ; Hypercholesterolemia E78.00 ; CVA (cerebral vascular accident) I63.9 and Hypothyroid E03.9 [facility] [address] [id number] [address] [place] [phone] Jan, Hypothyroid E03.9 and Diabet es mellitus E11.9 [facility] [address] [facility] [id number] [address] [place] [phone] Jan, [facility] [address] [facility] [id number] [address] [place] [phone] Jan, Diabetes mellitus E11.9 [facility] [address] [facility] [id number] [address] [place] [phone] Jan, [facility] [address] [facility] [id number] [address] [place] [phone] Dec, Diabetes mellitus E11.9 ; CV A (cerebral vascular accident) I63.9 ; COPD (chronic obstructive pulmonary disease) J44.9 ; Hypothyroid E03.9 ; GERD (gastroesophageal reflux disease) K21.9 and Hypercholesterolemia E78.00 [facility] [address] [facility] [id number] [address] [place] [phone] Nov, Diabetes mellitus E11.9 [facility] [address] [id number] [address] [place] [phone] Nov, [facility] [address] [facility] [id number] [address] [place] [phone] Nov, [facility] [address] [facility] [id number] [address] [place] [phone] Nov, [facility] [address] [facility] [id number] [address] [place] [phone] Nov, Diabetes mellitus E11.9 [facility] [address] [facility] [id number] [address] [place] [phone] Oct, Hypothyroid E03.9 [facility] [address] [facility] [id number] [address] [place] [phone] Oct, Diabetes mellitus E11.9 [facility] [address] [facility] [id number] [address] [place] [phone] Oct, COPD (chronic obstructive pu lmonary disease) J44.9 [facility] [address] [facility] [id number] [address] [place] [phone] Oct, [facility] [address] [facility] [id number] [place] [phone] Sep, Diabetes mellitus E11.9 ; An roberto at rest I20.8 ; Hypercholesterolemia E78.0 ; COPD (chronic obstructive pulmonary disease) J44.9 ; GERD (gastroesophageal reflux disease) K21.9 ; Dysuria R30.0 ; Acquired hypothyroidism E03.9 ; Encounter for immunization Z23 and Acute cystitis without hematuria N30.00 [facility] [address] [facility] [id number] [address] Sep, Diabetes mellitus E11.9 [facility] [address] [facility] [id number] [address] [place] [phone] Aug, [facility] [address] [id number] [place] [phone] Aug, Diabetes mellitus E11.9 [facility] [address] [facility] [id number] [address] [place] [phone] Jun, Angina at rest I20.8 ; CVA ( cerebral vascular accident) I63.9 ; Diabetes mellitus E11.9 ; Hypercholesterolemia E78.0 ; COPD (chronic obstructive pulmonary disease) J44.9 ; GERD (gastroesophageal reflux disease) K21.9 ; Peptic ulcer K27.9 and Hypothyroid E03.9 [facility] [address] [facility] [id number] [address] [place] [phone] Jun, [facility] [address] [facility] [id number] [address] [place] [phone] May, Diabetes mellitus E11.9 ; CV A (cerebral vascular accident) I63.9 ; COPD (chronic obstructive pulmonary disease) J44.9 and Angina at rest I20.8 [facility] [address] [facility] [id number] [address] [place] [phone] May, [facility] [address] [facility] [id number] [address] [place] [phone] May, Diabetes mellitus E11.9 ; Hy pothyroid E03.9 ; Angina at rest I20.8 ; CVA (cerebral vascular accident) I63.9 ; COPD (chronic obstructive pulmonary disease) J44.9 ; GERD (gastroesophageal reflux disease) K21.9 and Hypercholesterolemia E78.0 [facility] [address] [facility] [id number] [address] [place] [phone] Apr, Hypercholesterolemia E78.0 [facility] [address] [facility] [id number] [address] [place] [phone] Apr, [facility] [address] [id number] [address] [place] [phone] March, Diabetes mellitus E11.9 ; Hy pothyroid E03.9 ; Hypercholesterolemia E78.0 ; COPD (chronic obstructive pulmonary disease) J44.9 ; GERD (gastroesophageal reflux disease) K21.9 ; Constipation K59.00 ; CVA (cerebral vascular accident) I63.9 and Angina at rest I20.8 [facility] [address] [facility] [id number] [address] [place] [phone] March, [facility] [address] [facility] [id number] [address] [place] [phone] Feb, [facility] [address] [facility] [id number] [address] [place] [phone] Feb, [facility] [address] [facility] [id number] [address] [place] [phone] Feb, [facility] [address] [facility] [id number] [address] [place] [phone] Jan, Diabetes mellitus E11.9 ; Hy percholesterolemia E78.0 ; CVA (cerebral vascular accident) I63.9 ; GERD (gastroesophageal reflux disease) K21.9 ; Hypothyroid E03.9 and Angina at rest I20.8 [place] [id number] [address] Dec, Diabetes mellitus E11.9 ; Hy pothyroid E03.9 ; Angina at rest I20.8 ; CVA (cerebral vascular accident) I63.9 ; Hypercholesterolemia E78.0 ; COPD (chronic obstructive pulmonary disease) J44.9 ; GERD (gastroesophageal reflux disease) K21.9 and Dysuria R30.0 [place] [address] [address] Nov, [place] [address] [address] Nov, Hypothyroid E03.9 [facility] [id number] [place] [phone] Nov, Hypothyroid E03.9 ; Angina a t rest I20.8 ; CVA (cerebral vascular accident) I63.9 ; Hypercholesterolemia E78.0 ; COPD (chronic obstructive pulmonary disease) J44.9 ; GERD (gastroesophageal reflux disease) K21.9 and Diabetes E11.9 [facility] [address] [id number] [address] [place] [phone] Oct, Upper respiratory symptom R0 9.89 [facility] [address] [id number] [address] [place] [phone] Oct, [facility] [address] [address] Oct, [facility] [id number] [place] [phone] Oct, [place] [address] [address] Aug, Diabetes mellitus 250.00 ; E ncounter for immunization Z23 ; Hypothyroid E03.9 ; Angina at rest I20.8 ; CVA (cerebral vascular accident) I63.9 ; Hypercholesterolemia E78.0 ; COPD (chronic obstructive pulmonary disease) J44.9 and GERD (gastroesophageal reflux disease) K21.9 [facility] [address] [address] Jul, [facility] [address] [address] Jun, [facility] [address] [address] Jun, [facility] [address] [address] May, [facility] [address] [address] May, Diabetes mellitus 250.00 ; H ypothyroidism 244.9 ; Angina at rest 413.9 ; CVA (cerebral infarction) 434.91 ; Hypercholesterolemia 272.0 ; COPD (chronic obstructive pulmonary disease) 496 and GERD (gastroesophageal reflux disease) 530.81 [facility] [id number] [place] [phone] Oct, [facility] [address] [address] Oct, [facility] [address] [address] Oct, [facility] [address] [address] Oct, [facility] [address] [address] Sep, [facility] [address] [address] Aug, [facility] [address] [id number] [address] [place] [phone] 15 Aug, 2010 [facility] [address] [id number] [address] [place] [phone] 15 Aug, 2010 [facility] [address] [id number] [address] [place] [phone] Jul, [facility] [address] [id number] [address] [place] [phone] Jan, [facility] [address] [id number] [address] [place] [phone] Oct, [facility] [address] [id number] [address] [place] [phone] Oct, [facility] [address] [id number] [address] [place] [phone] Sep, [facility] [address] [id number] [address] [place] [phone] Apr, [facility] [address] [id number] [address] [place] [phone] Dec, IMMUNIZATIONS No Known Immunizations SOCIAL HISTORY Never Assessed REASON FOR VISIT rash on right groin area. been there for 4-5 days. reports pain in this area. atif mortensen PLAN OF CARE Activity Details Follow Up prn Reason: VITAL SIGNS Height 60 in 2018-09-13 Weight 159.2 lbs 2018-09-13 Temperature 97.9 degrees Fahrenheit 2018-09-13 Heart Rate 82 bpm 2018-09-13 Respiratory Rate 24 2018-09-13 BMI 31.09 kg/m2 2018-09-13 Blood pressure systolic 124 mmHg 2018-09-13 Blood pressure diastolic 68 mmHg 2018-09-13 MEDICATIONS Medication Instructions Dosage Frequency Start Date End Date Duration S tatus Ranexa 1000 MG Orally Twice a day 1 tablet 12h Active Isosorbide Mononitrate ER 60 MG Orally Once a day 1 tablet 24h Active Janumet 50-1000 mg Orally Twice a day 1 tablet with meals 12h Active OneTouch Delica Lancets 33G - USE TO TEST BLOOD SUGAR ONCE DAILY (E11.9) Active Nystatin 377710 UNIT/GM Externally Four times a day 1 applic ation to affected area 6h Sep, Oct, 10 days Active Glucometer 1 glucometer Please dispense 1 insura nce compatible glucometer kit Jan, Active Losartan Potassium 50 MG Orally Once a day 1 tablet 24h Active Oxygen Portable oxygen concentrator Use 2L nc O2 when up ambulating Oct, Active Levothyroxine Sodium 88 MCG Orally Once a day 1 tablet on an empty stomach in the morning 24h March, Active Lancets test one time per day as directed Active OneTouch Ultra Test - In Vitro 3 times a day USE ONE STRIP T O CHECK GLUCOSE ONCE DAILY DIRECTED 8h Active Aspirin 81 81 MG Orally Once a day 1 tablet 24h Active Nystatin 028017 UNIT/GM Externally Twice a day 1 application to affected area 12h Dec, Active NitroMist 400 MCG/SPRAY Translingual Once a day 1 spray under the ton hadley 24h Active Atorvastatin Calcium 40 mg Orally Once a day at HS 1 tablet 30 days Active Fenofibrate 160 MG TAKE ONE TABLET BY MOUTH DAILY Active Acetaminophen 500 MG Orally every 6 hrs 2 tablets 6h Active Protonix 40 mg Orally twice a day 1 tablet 12h Active Clopidogrel Bisulfate 75 MG Orally Once a day 1 tablet 24h Active RESULTS No Results PROCEDURES Procedure Date Ordered Result Body Site [facility] VISIT ESTABLISHED PATIENT Sep 13, 2018 INSTRUCTIONS MEDICATIONS ADMINISTERED No Known Medications [...] lobe Pneumonia 02/24/16 Hospitalization History Chest Pain--[facility] 05/03 05/18 Hospitalization History Chest pain--[facility] 06/18/16 Hospitalization History Influenza & COPD exacerbation 12/21 Hospitalization History Cardiac Monitoring 01/2018 Hospitalization History Via [facility], tripped and hit head 04/2018 Hospitalization History [facility]- kidney stones 9/15-07/20
--- OUTSIDE RECORDS SUMMARY | 2020-01-07 23:22 | XMS REPORT ---
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 Active [id number] Problem Kidney stones N20.0 Active 669954 07 Problem Type 2 diabetes mellitus wit h other specified complication, without long-term current use of insulin E11.69 Active 10091351 Problem CVA (cerebral vascular accident) I63.9 Active 278450743 Problem Hospital discharge follow-up Z09 A ctive 511603553 Problem Overweight (BMI 25.0-29.9) E66.3 Act esau 081856565 Problem 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.10 Active 283384713085763 Problem Hypothyroid E03.9 Active 52713675 Problem COPD (chronic obstructive pulmonary disease) J44.9 Active 31584036 Problem Osteopenia of spine M85.88 Active 019512080 Problem Former smoker Z87.891 Active 400588 6 Problem Constipation K59.00 Active 9812807 8 Problem Peptic ulcer K27.9 Active 7100258 3 Problem GERD (gastroesophageal reflux disease) K21.9 Active 216284418 Problem Hyperlipidemia LDL goal <100 E78.5 A ctive 81431510 Problem Angina at rest I20.8 Active 22717 001 Problem Type 2 diabetes mellitus wit hout complication, without long-term current use of insulin E11.9 Active 806825049 ALLERGIES No Information ENCOUNTERS Encounter Location Date Diagnosis [facility] [address] [facility] [id number] [address] [place] [phone] Sep, Hyperlipidemia LDL goal <100 E78.5 [facility] [address] [facility] [id number] [address] [place] [phone] Aug, Encounter for immunization Z 23 [facility] [address] [facility] [id number] [address] [place] [phone] Jul, Hypothyroid E03.9 [facility] [address] [facility] [id number] [place] [address] Jul, Type 2 diabetes mellitus wit h other specified complication, without long-term current use of insulin E11.69 ; Kidney stones N20.0 ; Hypothyroid E03.9 ; COPD (chronic obstructive pulmonary disease) J44.9 and Hyperlipidemia LDL goal <100 E78.5 [place] [address] [facility] [id number] [address] [place] [phone] Jun, [facility] [address] [place] [id number] [place] [phone] Jun, [facility] [address] [facility] [id number] [address] [place] [phone] Jun, [facility] [address] [facility] [id number] [address] [place] [phone] May, [facility] [address] [place] [id number] [address] [place] [phone] Apr, [place] [address] [facility] [id number] [place] [phone] Apr, Type 2 diabetes mellitus wit hout complication, without long-term current use of insulin E11.9 ; Hypothyroid E03.9 ; Hyperlipidemia LDL goal <100 E78.5 ; Overweight (BMI 25.0-29.9) E66.3 ; Vaginal candidiasis B37.3 ; COPD (chronic obstructive pulmonary disease) J44.9 ; CVA (cerebral vascular accident) I63.9 ; GERD (gastroesophageal reflux disease) K21.9 ; Angina at rest I20.8 and 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 [facility] [address] [facility] [id number] [address] [place] [phone] March, Hypothyroid E03.9 [facility] [address] [facility] [id number] [address] [place] [phone] March, Hypercholesterolemia E78.00 [facility] [address] [facility] [id number] [address] [place] [phone] March, Hypothyroid E03.9 [facility] [address] [facility] [id number] [address] [place] [phone] March, Hypercholesterolemia E78.00 [facility] [address] [facility] [id number] [address] [place] [address] Feb, Hypercholesterolemia E78.00 [facility] [address] [facility] [id number] [address] [place] [phone] Feb, Type 2 diabetes mellitus wit hout complication, without long-term current use of insulin E11.9 [facility] [address] [facility] [id number] [address] [place] [phone] Feb, Hypothyroid E03.9 [facility] [address] [facility] [id number] [address] [place] [phone] Jan, Hypothyroid E03.9 ; Oxygen d ependent Z99.81 ; Hospital discharge follow-up Z09 ; Type 2 diabetes mellitus without complication, without long-term current use of insulin E11.9 ; 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 and History of CVA (cerebrovascular accident) Z86.73 [facility] [address] [facility] [id number] [address] [place] [phone] Jan, [facility] [address] [facility] [id number] [address] [place] [phone] Jan, [facility] [address] [facility] [id number] [address] [place] [phone] Jan, Type 2 diabetes mellitus wit hout complication, without long-term current use of insulin E11.9 [place] [address] [id number] [address] [place] [phone] 27 Dec, 2017 Hospital discharge follow-up Z09 ; COPD (chronic obstructive pulmonary disease) J44.9 ; Type 2 diabetes mellitus without complication, without long-term current use of insulin E11.9 ; Hypothyroid E03.9 and Vaginal discharge N89.8 [facility] [address] [id number] [address] [place] [phone] Dec, Hypothyroid E03.9 [place] [address] [id number] [address] [place] [phone] Dec, Type 2 diabetes mellitus wit hout complication, without long-term current use of insulin E11.9 [place] [address] [id number] [address] [place] [phone] Nov, [place] [address] [id number] [address] [place] [phone] Nov, [place] [address] [id number] [address] [place] [phone] Nov, Pneumonia of right lower lob e due to infectious organism J18.1 ; Orthopnea R06.01 ; COPD with acute exacerbation J44.1 and Fatigue, unspecified type R53.83 [place] [address] [id number] [address] [place] [phone] Nov, [place] [address] [id number] [address] [place] [phone] Nov, [place] [address] [id number] [address] [place] [phone] Oct, Pneumonia of right lower lob e due to infectious organism J18.1 [place] [address] [id number] [address] [place] [phone] Oct, Pneumonia of right lower lob e due to infectious organism J18.1 [place] [id number] [id number] [address] [place] [phone] Oct, Pneumonia of right lower lob e due to infectious organism J18.1 [place] [id number] [place] [address] Oct, COPD exacerbation J44.1 [place] [address] [place] [id number] [address] [place] [phone] Oct, [place] [address] [address] Oct, COPD exacerbation J44.1 [place] [address] [address] 11 Oct, 2017 Encounter for immunization Z 23 and COPD (chronic obstructive pulmonary disease) J44.9 [place] [address] [address] 06 Oct, 2017 Medicare annual wellness vis it, subsequent Z00.00 ; History of tobacco use Z87.891 ; Need for Zostavax administration Z23 ; Post-menopausal Z78.0 ; Screening for breast cancer Z12.31 ; Screening for colon cancer Z12.11 ; 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 and Encounter for immunization Z23 [place] [address] [address] Sep, Type 2 diabetes mellitus wit hout complication, without long-term current use of insulin E11.9 [place] [address] [address] Sep, Type 2 diabetes mellitus wit hout complication, without long-term current use of insulin E11.9 ; COPD (chronic obstructive pulmonary disease) J44.9 ; Hypothyroid E03.9 ; GERD (gastroesophageal reflux disease) K21.9 ; CVA (cerebral vascular accident) I63.9 ; Hyperlipidemia LDL goal <100 E78.5 ; Coronary artery disease of viejas heart with stable angina pectoris, unspecified vessel or lesion type I25.118 and 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 [place] [address] [place] [id number] [address] [place] [phone] Aug, Type 2 diabetes mellitus wit hout complication, without long-term current use of insulin E11.9 [place] [address] [address] Aug, Hypothyroid E03.9 [place] [address] [address] Aug, Type 2 diabetes mellitus wit hout complication, without long-term current use of insulin E11.9 ; COPD (chronic obstructive pulmonary disease) J44.9 ; Hypothyroid E03.9 ; GERD (gastroesophageal reflux disease) K21.9 ; CVA (cerebral vascular accident) I63.9 ; Hyperlipidemia LDL goal <100 E78.5 ; Coronary artery disease of viejas heart with stable angina pectoris, unspecified vessel or lesion type I25.118 and Encounter for immunization Z23 [place] [address] [address] 12 Jul, 2017 Hypothyroid E03.9 and Hyperc holesterolemia E78.00 [place] [address] [address] 08 Jul, 2017 Hypothyroid E03.9 ; Diabetes mellitus E11.9 and Hypercholesterolemia E78.[address] [address] Jul, Hypothyroid E03.9 ; Diabetes mellitus E11.9 and Hypercholesterolemia E78.0 [place] [address] [address] May, CVA (cerebral vascular accid ent) I63.9 and Dizziness R42 [place] [address] [address] May, Dehydration E86.0 ; CVA (cer ebral vascular accident) I63.9 ; COPD (chronic obstructive pulmonary disease) J44.9 and Dizziness R42 [place] [address] [address] March, Diabetes mellitus E11.9 ; An roberto at rest I20.8 ; COPD (chronic obstructive pulmonary disease) J44.9 ; GERD (gastroesophageal reflux disease) K21.9 ; Hypercholesterolemia E78.00 ; CVA (cerebral vascular accident) I63.9 and Hypothyroid E03.9 [facility] [address] [id number] [address] [place] [phone] Jan, Hypothyroid E03.9 and Diabet es mellitus E11.9 [facility] [address] [id number] [address] [place] [phone] Jan, [facility] [address] [id number] [address] [place] [phone] Jan, Diabetes mellitus E11.9 [facility] [address] [facility] [id number] [address] [place] [phone] Jan, [facility] [address] [facility] [id number] [address] [place] [phone] Dec, Diabetes mellitus E11.9 ; CV A (cerebral vascular accident) I63.9 ; COPD (chronic obstructive pulmonary disease) J44.9 ; Hypothyroid E03.9 ; GERD (gastroesophageal reflux disease) K21.9 and Hypercholesterolemia E78.00 [facility] [address] [id number] [address] [place] [phone] Nov, Diabetes mellitus E11.9 [facility] [address] [id number] [address] [place] [phone] Nov, [facility] [address] [facility] [id number] [address] [place] [phone] Nov, [facility] [address] [id number] [address] [place] [phone] Nov, [facility] [address] [facility] [id number] [address] [place] [address] Nov, Diabetes mellitus E11.9 [facility] [address] [facility] [id number] [address] [place] [phone] Oct, Hypothyroid E03.9 [facility] [address] [facility] [id number] [address] [place] [phone] Oct, Diabetes mellitus E11.9 [facility] [address] [facility] [id number] [address] [place] [phone] Oct, COPD (chronic obstructive pu lmonary disease) J44.9 [facility] [address] [facility] [id number] [address] [place] [phone] Oct, [place] [address] [place] [id number] [place] [address] Sep, Diabetes mellitus E11.9 ; An roberto at rest I20.8 ; Hypercholesterolemia E78.0 ; COPD (chronic obstructive pulmonary disease) J44.9 ; GERD (gastroesophageal reflux disease) K21.9 ; Dysuria R30.0 ; Acquired hypothyroidism E03.9 ; Encounter for immunization Z23 and Acute cystitis without hematuria N30.00 [facility] [address] [facility] [id number] [address] [place] [phone] Sep, Diabetes mellitus E11.9 [facility] [address] [facility] [id number] [address] [place] [phone] Aug, [facility] [address] [place] [id number] [place] [phone] Aug, Diabetes mellitus E11.9 [facility] [address] [facility] [id number] [address] [place] [address] Jun, Angina at rest I20.8 ; CVA ( cerebral vascular accident) I63.9 ; Diabetes mellitus E11.9 ; Hypercholesterolemia E78.0 ; COPD (chronic obstructive pulmonary disease) J44.9 ; GERD (gastroesophageal reflux disease) K21.9 ; Peptic ulcer K27.9 and Hypothyroid E03.9 [facility] [address] [facility] [id number] [address] [place] [phone] Jun, [facility] [address] [facility] [id number] [address] [place] [address] May, Diabetes mellitus E11.9 ; CV A (cerebral vascular accident) I63.9 ; COPD (chronic obstructive pulmonary disease) J44.9 and Angina at rest I20.8 [facility] [address] [facility] [id number] [address] [place] [phone] May, [facility] [address] [facility] [id number] [address] [place] [phone] May, Diabetes mellitus E11.9 ; Hy pothyroid E03.9 ; Angina at rest I20.8 ; CVA (cerebral vascular accident) I63.9 ; COPD (chronic obstructive pulmonary disease) J44.9 ; GERD (gastroesophageal reflux disease) K21.9 and Hypercholesterolemia E78.0 [place] [address] [facility] [id number] [address] Apr, Hypercholesterolemia E78.0 [place] [address] [place] [id number] [place] [address] Apr, [place] [address] [address] March, Diabetes mellitus E11.9 ; Hy pothyroid E03.9 ; Hypercholesterolemia E78.0 ; COPD (chronic obstructive pulmonary disease) J44.9 ; GERD (gastroesophageal reflux disease) K21.9 ; Constipation K59.00 ; CVA (cerebral vascular accident) I63.9 and Angina at rest I20.8 [place] [address] [place] [id number] [address] [place] [phone] March, [place] [address] [place] [id number] [address] [place] [phone] Feb, [place] [address] [place] [id number] [address] [place] [phone] Feb, [place] [address] [address] Feb, [place] [address] [place] [id number] [address] [place] [address] Jan, Diabetes mellitus E11.9 ; Hy percholesterolemia E78.0 ; CVA (cerebral vascular accident) I63.9 ; GERD (gastroesophageal reflux disease) K21.9 ; Hypothyroid E03.9 and Angina at rest I20.8 [facility] [address] [facility] [id number] [address] [place] [address] Dec, Diabetes mellitus E11.9 ; Hy pothyroid E03.9 ; Angina at rest I20.8 ; CVA (cerebral vascular accident) I63.9 ; Hypercholesterolemia E78.0 ; COPD (chronic obstructive pulmonary disease) J44.9 ; GERD (gastroesophageal reflux disease) K21.9 and Dysuria R30.0 [facility] [address] [facility] [id number] [address] Nov, [place] [address] [address] Nov, Hypothyroid E03.9 [place] [address] [address] Nov, Hypothyroid E03.9 ; Angina a t rest I20.8 ; CVA (cerebral vascular accident) I63.9 ; Hypercholesterolemia E78.0 ; COPD (chronic obstructive pulmonary disease) J44.9 ; GERD (gastroesophageal reflux disease) K21.9 and Diabetes E11.9 [facility] [address] [facility] [id number] [address] [place] [phone] Oct, Upper respiratory symptom R0 9.89 [facility] [address] [address] Oct, [facility] [address] [address] Oct, [facility] [address] [address] Oct, [place] [address] [address] 14 Aug, 2015 Diabetes mellitus 250.00 ; E ncounter for immunization Z23 ; Hypothyroid E03.9 ; Angina at rest I20.8 ; CVA (cerebral vascular accident) I63.9 ; Hypercholesterolemia E78.0 ; COPD (chronic obstructive pulmonary disease) J44.9 and GERD (gastroesophageal reflux disease) K21.9 [facility] [address] [address] Jul, [facility] [address] [place] [id number] [place] [address] Jun, [facility] [address] [address] Jun, [facility] [address] [address] May, [facility] [address] [address] May, Diabetes mellitus 250.00 ; H ypothyroidism 244.9 ; Angina at rest 413.9 ; CVA (cerebral infarction) 434.91 ; Hypercholesterolemia 272.0 ; COPD (chronic obstructive pulmonary disease) 496 and GERD (gastroesophageal reflux disease) 530.81 [facility] [address] [address] Oct, [facility] [address] [address] Oct, [facility] [address] [address] Oct, [facility] [address] [address] Oct, [facility] [address] [address] Sep, [facility] [address] [address] Aug, [facility] [address] [address] Aug, [facility] [address] [address] Aug, [facility] [address] [id number] [address] [place] [phone] 13 Jul, 2010 [facility] [address] [id number] [address] [place] [phone] 15 Jan, 2010 [facility] [address] [id number] [address] [place] [phone] 30 Oct, 2009 [facility] [address] [facility] [id number] [address] [place] [phone] Oct, [facility] [address] [id number] [address] [place] [phone] Sep, [facility] [address] [facility] [id number] [address] [place] [phone] Apr, [facility] [address] [facility] [id number] [address] [place] [phone] 10 Dec, 2008 IMMUNIZATIONS No Known Immunizations [...] lobe Pneumonia 02/24/16 Hospitalization History Chest Pain--[facility] 05/03 05/18 Hospitalization History Chest pain--[facility] 06/18/16 Hospitalization History Influenza & COPD exacerbation 12/21 Hospitalization History Cardiac Monitoring 01/2018 Hospitalization History Via [facility] ER, tripped and hit head 04/2018 Hospitalization History [facility]- kidney stones 07/18-07/20
--- OUTSIDE RECORDS SUMMARY | 2020-01-07 23:25 | XMS REPORT ---
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 Active 5494487665671 Problem Kidney stones N20.0 Active 915181 07 Problem Type 2 diabetes mellitus wit h other specified complication, without long-term current use of insulin E11.69 Active 53444114 Problem CVA (cerebral vascular accident) I63.9 Active 675157052 Problem Hospital discharge follow-up Z09 A ctive 724851473 Problem Overweight (BMI 25.0-29.9) E66.3 Act esau 595323773 Problem 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 Active [id number] Problem Hypothyroid E03.9 Active 40968855 Problem COPD (chronic obstructive pulmonary disease) J44.9 Active 63652431 Problem Osteopenia of spine M85.88 Active 429328914 Problem Former smoker Z87.891 Active 624045 6 Problem Constipation K59.00 Active 2332492 8 Problem Peptic ulcer K27.9 Active 1370459 3 Problem GERD (gastroesophageal reflux disease) K21.9 Active 743326008 Problem Hyperlipidemia LDL goal <100 E78.5 A ctive 00097951 Problem Angina at rest I20.8 Active 01950 001 Problem Type 2 diabetes mellitus wit hout complication, without long-term current use of insulin E11.9 Active 385273702 ALLERGIES No Information ENCOUNTERS Encounter Location Date Diagnosis [facility] [address] [facility] [id number] [address] [address] Aug, Encounter for immunization Z 23 [facility] [address] [facility] [id number] [address] [place] [id number] Jul, Hypothyroid E03.9 [facility] [address] [place] [id number] [address] [place] [id number] Jul, Type 2 diabetes mellitus wit h other specified complication, without long-term current use of insulin E11.69 ; Kidney stones N20.0 ; Hypothyroid E03.9 ; COPD (chronic obstructive pulmonary disease) J44.9 and Hyperlipidemia LDL goal <100 E78.5 [facility] [address] [facility] [id number] [address] [place] [phone] Jun, [place] [address] [place] [id number] [place] [phone] Jun, [place] [address] [place] [id number] [place] [phone] Jun, [place] [address] [place] [id number] [address] [place] [phone] May, [facility] [address] [facility] [id number] [place] [phone] Apr, [place] [address] [place] [id number] [place] [phone] Apr, Type 2 diabetes mellitus wit hout complication, without long-term current use of insulin E11.9 ; Hypothyroid E03.9 ; Hyperlipidemia LDL goal <100 E78.5 ; Overweight (BMI 25.0-29.9) E66.3 ; Vaginal candidiasis B37.3 ; COPD (chronic obstructive pulmonary disease) J44.9 ; CVA (cerebral vascular accident) I63.9 ; GERD (gastroesophageal reflux disease) K21.9 ; Angina at rest I20.8 and 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 [facility] [address] [place] [id number] [address] [place] [id number] March, Hypothyroid E03.9 [place] [address] [place] [id number] [address] [place] [phone] March, Hypercholesterolemia E78.00 [facility] [address] [facility] [id number] [address] [place] [id number] March, Hypothyroid E03.9 [facility] [address] [facility] [id number] [address] [place] [id number] March, Hypercholesterolemia E78.00 [place] [address] [facility] [id number] [address] [place] [phone] Feb, Hypercholesterolemia E78.00 [place] [address] [facility] [id number] [address] [place] [phone] Feb, Type 2 diabetes mellitus wit hout complication, without long-term current use of insulin E11.9 [place] [address] [place] [id number] [address] [place] [phone] Feb, Hypothyroid E03.9 [place] [address] [place] [id number] [address] [place] [id number] Jan, Hypothyroid E03.9 ; Oxygen d ependent Z99.81 ; Hospital discharge follow-up Z09 ; Type 2 diabetes mellitus without complication, without long-term current use of insulin E11.9 ; 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 and History of CVA (cerebrovascular accident) Z86.73 [place] [address] [facility] [id number] [address] [place] [id number] Jan, [place] [address] [facility] [id number] [address] [place] [phone] Jan, [place] [address] [facility] [id number] [address] [place] [phone] Jan, Type 2 diabetes mellitus wit hout complication, without long-term current use of insulin E11.9 [place] [address] [facility] [id number] [address] [place] [phone] Dec, Hospital discharge follow-up Z09 ; COPD (chronic obstructive pulmonary disease) J44.9 ; Type 2 diabetes mellitus without complication, without long-term current use of insulin E11.9 ; Hypothyroid E03.9 and Vaginal discharge N89.8 [facility] [address] [id number] [address] [place] [phone] Dec, Hypothyroid E03.9 [facility] [address] [id number] [address] [place] [phone] Dec, Type 2 diabetes mellitus wit hout complication, without long-term current use of insulin E11.9 [facility] [address] [id number] [address] [place] [id number] Nov, [facility] [address] [id number] [address] [place] [phone] Nov, [facility] [address] [id number] [address] [place] [phone] Nov, Pneumonia of right lower lob e due to infectious organism J18.1 ; Orthopnea R06.01 ; COPD with acute exacerbation J44.1 and Fatigue, unspecified type R53.83 [facility] [address] [id number] [address] [place] [phone] Nov, [facility] [address] [id number] [address] [place] [phone] Nov, [facility] [address] [id number] [address] [place] [phone] Oct, Pneumonia of right lower lob e due to infectious organism J18.1 [facility] [address] [id number] [address] [place] [phone] Oct, Pneumonia of right lower lob e due to infectious organism J18.1 [facility] [address] [id number] [address] [place] [phone] Oct, Pneumonia of right lower lob e due to infectious organism J18.1 [facility] [address] [id number] [address] [place] [id number] 26 Dec, 2017 COPD exacerbation J44.1 [place] [address] [place] [id number] [address] [place] [phone] Oct, [address] [id number] Oct, COPD exacerbation J44.[address] [id number] 11 Oct, 2017 Encounter for immunization Z 23 and COPD (chronic obstructive pulmonary disease) J44.[address] [id number] 06 Oct, 2017 Medicare annual wellness vis it, subsequent Z00.00 ; History of tobacco use Z87.891 ; Need for Zostavax administration Z23 ; Post-menopausal Z78.0 ; Screening for breast cancer Z12.31 ; Screening for colon cancer Z12.11 ; 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 and Encounter for immunization Z23 [address] [address] Sep, Type 2 diabetes mellitus wit hout complication, without long-term current use of insulin E11.[address] [address] Sep, Type 2 diabetes mellitus wit hout complication, without long-term current use of insulin E11.9 ; COPD (chronic obstructive pulmonary disease) J44.9 ; Hypothyroid E03.9 ; GERD (gastroesophageal reflux disease) K21.9 ; CVA (cerebral vascular accident) I63.9 ; Hyperlipidemia LDL goal <100 E78.5 ; Coronary artery disease of [place] heart with stable angina pectoris, unspecified vessel or lesion type I25.118 and 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 [address] Aug, Type 2 diabetes mellitus wit hout complication, without long-term current use of insulin E11.[address] [id number] Aug, Hypothyroid E03.9 [place] [address] [id number] Aug, Type 2 diabetes mellitus wit hout complication, without long-term current use of insulin E11.9 ; COPD (chronic obstructive pulmonary disease) J44.9 ; Hypothyroid E03.9 ; GERD (gastroesophageal reflux disease) K21.9 ; CVA (cerebral vascular accident) I63.9 ; Hyperlipidemia LDL goal <100 E78.5 ; Coronary artery disease of [place] heart with stable angina pectoris, unspecified vessel or lesion type I25.118 and Encounter for immunization Z23 [address] [address] Jul, Hypothyroid E03.9 and Hyperc holesterolemia E78.[address] [id number] 08 Jul, 2017 Hypothyroid E03.9 ; Diabetes mellitus E11.9 and Hypercholesterolemia E78.0 [place] [address] [id number] Jul, Hypothyroid E03.9 ; Diabetes mellitus E11.9 and Hypercholesterolemia E78.[address] [address] May, CVA (cerebral vascular accid ent) I63.9 and Dizziness R42 [address] [address] May, Dehydration E86.0 ; CVA (cer ebral vascular accident) I63.9 ; COPD (chronic obstructive pulmonary disease) J44.9 and Dizziness R42 [address] [address] March, Diabetes mellitus E11.9 ; An roberto at rest I20.8 ; COPD (chronic obstructive pulmonary disease) J44.9 ; GERD (gastroesophageal reflux disease) K21.9 ; Hypercholesterolemia E78.00 ; CVA (cerebral vascular accident) I63.9 and Hypothyroid E03.9 [place] [id number] [place] [phone] Jan, Hypothyroid E03.9 and Diabet es mellitus E11.9 [facility] [address] [id number] [address] [place] [phone] Jan, [facility] [address] [facility] [id number] [address] [place] [phone] Jan, Diabetes mellitus E11.9 [facility] [address] [facility] [id number] [address] [place] [id number] Jan, [facility] [address] [facility] [id number] [address] [place] [phone] Dec, Diabetes mellitus E11.9 ; CV A (cerebral vascular accident) I63.9 ; COPD (chronic obstructive pulmonary disease) J44.9 ; Hypothyroid E03.9 ; GERD (gastroesophageal reflux disease) K21.9 and Hypercholesterolemia E78.00 [facility] [address] [facility] [id number] [address] [place] [phone] Nov, Diabetes mellitus E11.9 [facility] [address] [facility] [id number] [address] [place] [id number] Nov, [facility] [address] [facility] [id number] [address] [place] [phone] Nov, [facility] [address] [facility] [id number] [address] [place] [phone] Nov, [facility] [address] [facility] [id number] [address] [place] [id number] Nov, Diabetes mellitus E11.9 [facility] [address] [id number] [address] [place] [phone] Oct, Hypothyroid E03.9 [facility] [address] [facility] [id number] [address] [place] [phone] Oct, Diabetes mellitus E11.9 [facility] [address] [facility] [id number] [address] [place] [phone] Oct, COPD (chronic obstructive pu lmonary disease) J44.9 [facility] [address] [facility] [id number] [address] [place] [id number] Oct, [facility] [address] [facility] [id number] [address] [place] [phone] Sep, Diabetes mellitus E11.9 ; An roberto at rest I20.8 ; Hypercholesterolemia E78.0 ; COPD (chronic obstructive pulmonary disease) J44.9 ; GERD (gastroesophageal reflux disease) K21.9 ; Dysuria R30.0 ; Acquired hypothyroidism E03.9 ; Encounter for immunization Z23 and Acute cystitis without hematuria N30.00 [facility] [address] [facility] [id number] [address] [place] [id number] Sep, Diabetes mellitus E11.9 [facility] [address] [facility] [id number] [address] [place] [phone] Aug, [facility] [address] [facility] [id number] [address] [place] [phone] Aug, Diabetes mellitus E11.9 [facility] [address] [facility] [id number] [address] [place] [phone] Jun, Angina at rest I20.8 ; CVA ( cerebral vascular accident) I63.9 ; Diabetes mellitus E11.9 ; Hypercholesterolemia E78.0 ; COPD (chronic obstructive pulmonary disease) J44.9 ; GERD (gastroesophageal reflux disease) K21.9 ; Peptic ulcer K27.9 and Hypothyroid E03.9 [facility] [address] [facility] [id number] [address] [place] [id number] Jun, [facility] [address] [facility] [id number] [address] [place] [phone] May, Diabetes mellitus E11.9 ; CV A (cerebral vascular accident) I63.9 ; COPD (chronic obstructive pulmonary disease) J44.9 and Angina at rest I20.8 [facility] [address] [facility] [id number] [address] [place] [phone] May, [facility] [address] [place] [id number] [address] [place] [id number] May, Diabetes mellitus E11.9 ; Hy pothyroid E03.9 ; Angina at rest I20.8 ; CVA (cerebral vascular accident) I63.9 ; COPD (chronic obstructive pulmonary disease) J44.9 ; GERD (gastroesophageal reflux disease) K21.9 and Hypercholesterolemia E78.0 [place] [address] [id number] Apr, Hypercholesterolemia E78.0 [place] [address] [place] [id number] [place] [phone] Apr, [place] [address] [address] March, Diabetes mellitus E11.9 ; Hy pothyroid E03.9 ; Hypercholesterolemia E78.0 ; COPD (chronic obstructive pulmonary disease) J44.9 ; GERD (gastroesophageal reflux disease) K21.9 ; Constipation K59.00 ; CVA (cerebral vascular accident) I63.9 and Angina at rest I20.8 [place] [address] [address] March, [place] [address] [place] [id number] [place] [phone] Feb, [place] [address] [id number] Feb, [place] [address] [place] [id number] [address] [place] [phone] Feb, [place] [address] [place] [id number] [address] [place] [phone] Jan, Diabetes mellitus E11.9 ; Hy percholesterolemia E78.0 ; CVA (cerebral vascular accident) I63.9 ; GERD (gastroesophageal reflux disease) K21.9 ; Hypothyroid E03.9 and Angina at rest I20.8 [place] [address] [place] [id number] [address] [place] [phone] Dec, Diabetes mellitus E11.9 ; Hy pothyroid E03.9 ; Angina at rest I20.8 ; CVA (cerebral vascular accident) I63.9 ; Hypercholesterolemia E78.0 ; COPD (chronic obstructive pulmonary disease) J44.9 ; GERD (gastroesophageal reflux disease) K21.9 and Dysuria R30.0 [facility] [address] [phone] Nov, [facility] [address] [address] Nov, Hypothyroid E03.9 [place] [address] [address] Nov, Hypothyroid E03.9 ; Angina a t rest I20.8 ; CVA (cerebral vascular accident) I63.9 ; Hypercholesterolemia E78.0 ; COPD (chronic obstructive pulmonary disease) J44.9 ; GERD (gastroesophageal reflux disease) K21.9 and Diabetes E11.9 [facility] [address] [address] Oct, Upper respiratory symptom R0 9.89 [facility] [address] [address] Oct, [facility] [address] [id number] Oct, [facility] [address] [address] Oct, [place] [address] [address] 14 Aug, 2015 Diabetes mellitus 250.00 ; E ncounter for immunization Z23 ; Hypothyroid E03.9 ; Angina at rest I20.8 ; CVA (cerebral vascular accident) I63.9 ; Hypercholesterolemia E78.0 ; COPD (chronic obstructive pulmonary disease) J44.9 and GERD (gastroesophageal reflux disease) K21.9 [facility] [address] [address] Jul, [facility] [address] [facility] [id number] [address] [place] [phone] Jun, [facility] [address] [id number] [address] [place] [phone] Jun, [facility] [address] [facility] [id number] [address] [place] [id number] May, [facility] [address] [facility] [id number] [address] [place] [id number] May, Diabetes mellitus 250.00 ; H ypothyroidism 244.9 ; Angina at rest 413.9 ; CVA (cerebral infarction) 434.91 ; Hypercholesterolemia 272.0 ; COPD (chronic obstructive pulmonary disease) 496 and GERD (gastroesophageal reflux disease) 530.81 [facility] [address] [facility] [id number] [address] [place] [phone] Oct, [facility] [address] [id number] [address] [place] [id number] Oct, [facility] [address] [facility] [id number] [address] [place] [phone] Oct, [facility] [address] [facility] [id number] [address] [place] [phone] Oct, [facility] [address] [facility] [id number] [address] [place] [id number] Sep, [facility] [address] [id number] [address] [place] [id number] Aug, [facility] [address] [id number] [address] [place] [phone] Aug, [facility] [address] [id number] [address] [place] [phone] Aug, [facility] [address] [facility] [id number] [address] [place] [id number] 13 Jul, 2010 [facility] [address] [id number] [address] [place] [phone] Jan, [facility] [address] [facility] [id number] [address] [place] [phone] Oct, [facility] [address] [id number] [address] [place] [phone] Oct, [facility] [address] [facility] [id number] [address] [place] [phone] Sep, [facility] [address] [id number] [address] [place] [phone] Apr, [facility] [address] [facility] [id number] [address] [place] [phone] Dec, IMMUNIZATIONS Vaccine Route Administration Date Status FLUZONE HIGH DOSE 0.5ML (65 & UP) 2017 IM Intramuscular Aug 06, 2018 Administered SOCIAL HISTORY Never Assessed REASON FOR VISIT Flu shot Ally Ennis MA PLAN OF CARE VITAL SIGNS MEDICATIONS Unknown Medications RESULTS No Results PROCEDURES Procedure Date Ordered Result Body Site FLUZONE HIGH DOSE (65 & UP) 2018 Aug 06, 2018 ADMN FLU VAC NO FEE SCHED SAME DAY Aug 06, 2018 SINGLE IMMUNIZATION ADMIN Aug 06, 2018 INSTRUCTIONS MEDICATIONS ADMINISTERED No Known Medications [...] lobe Pneumonia 02/24/16 Hospitalization History Chest Pain--Via [facility] 05/03 05/18 Hospitalization History Chest pain--VC 06/18/16 Hospitalization History Influenza & COPD exacerbation 12/21 Hospitalization History Cardiac Monitoring 01/2018 Hospitalization History Via [facility], tripped and hit head 04/2018 Hospitalization History [facility]- kidney stones 07/18-07/20
--- OUTSIDE RECORDS SUMMARY | 2020-01-07 23:25 | XMS REPORT ---
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 Active 7764617635296 Problem Kidney stones N20.0 Active 371520 07 Problem Type 2 diabetes mellitus wit h other specified complication, without long-term current use of insulin E11.69 Active 48670009 Problem CVA (cerebral vascular accident) I63.9 Active 896162238 Problem Hospital discharge follow-up Z09 A ctive 991398742 Problem Overweight (BMI 25.0-29.9) E66.3 Act esau 390499155 Problem 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 Active 201976413860478 Problem Hypothyroid E03.9 Active 45938289 Problem COPD (chronic obstructive pulmonary disease) J44.9 Active 48232371 Problem Osteopenia of spine M85.88 Active 525142062 Problem Former smoker Z87.891 Active 032686 6 Problem Constipation K59.00 Active 3297459 8 Problem Peptic ulcer K27.9 Active 6407710 3 Problem GERD (gastroesophageal reflux disease) K21.9 Active 790805939 Problem Hyperlipidemia LDL goal <100 E78.5 A ctive 30778114 Problem Angina at rest I20.8 Active 09199 001 Problem Type 2 diabetes mellitus wit hout complication, without long-term current use of insulin E11.9 Active 463022513 ALLERGIES Substance Reaction Event Type Date Status Ultram hives Drug Allergy Jul, Active Fentanyl hives Drug Allergy Jul, Active ENCOUNTERS Encounter Location Date Diagnosis [place] [address] [address] 04 Aug, 2018 Encounter for immunization Z 23 [place] [address] [address] 25 Jul, 2018 Hypothyroid E03.9 [place] [address] [address] 18 Jul, 2018 Type 2 diabetes mellitus wit h other specified complication, without long-term current use of insulin E11.69 ; Kidney stones N20.0 ; Hypothyroid E03.9 ; COPD (chronic obstructive pulmonary disease) J44.9 and Hyperlipidemia LDL goal <100 E78.5 [place] [address] [address] Jun, [place] [address] [address] Jun, [place] [address] [address] Jun, [place] [address] [address] May, [place] [address] [address] Apr, [place] [address] [address] Apr, Type 2 diabetes mellitus wit hout complication, without long-term current use of insulin E11.9 ; Hypothyroid E03.9 ; Hyperlipidemia LDL goal <100 E78.5 ; Overweight (BMI 25.0-29.9) E66.3 ; Vaginal candidiasis B37.3 ; COPD (chronic obstructive pulmonary disease) J44.9 ; CVA (cerebral vascular accident) I63.9 ; GERD (gastroesophageal reflux disease) K21.9 ; Angina at rest I20.8 and 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 [place] [address] [address] March, Hypothyroid E03.9 [facility] [address] [facility] [id number] [address] [place] [id number] March, Hypercholesterolemia E78.00 [facility] [address] [facility] [id number] [address] [place] [id number] March, Hypothyroid E03.9 [facility] [address] [facility] [id number] [address] [place] [address] March, Hypercholesterolemia E78.00 [facility] [address] [facility] [id number] [address] [place] [address] Feb, Hypercholesterolemia E78.00 [facility] [address] [facility] [id number] [address] [place] [phone] Feb, Type 2 diabetes mellitus wit hout complication, without long-term current use of insulin E11.9 [place] [address] [address] [facility] [id number] [address] [place] [phone] Feb, Hypothyroid E03.9 [place] [address] [address] [facility] [id number] [address] [place] [phone] Jan, Hypothyroid E03.9 ; Oxygen d ependent Z99.81 ; Hospital discharge follow-up Z09 ; Type 2 diabetes mellitus without complication, without long-term current use of insulin E11.9 ; 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 and History of CVA (cerebrovascular accident) Z86.73 [facility] [address] [facility] [id number] [address] [place] [address] Jan, [place] [address] [facility] [id number] [address] [place] [phone] Jan, [place] [address] [address] [place] [id number] [address] [place] [phone] Jan, Type 2 diabetes mellitus wit hout complication, without long-term current use of insulin E11.9 [place] [address] [address] [facility] [id number] [address] [place] [address] Dec, Hospital discharge follow-up Z09 ; COPD (chronic obstructive pulmonary disease) J44.9 ; Type 2 diabetes mellitus without complication, without long-term current use of insulin E11.9 ; Hypothyroid E03.9 and Vaginal discharge N89.8 [facility] [address] [id number] [address] [place] [phone] Dec, Hypothyroid E03.9 [facility] [address] [id number] [address] [place] [phone] Dec, Type 2 diabetes mellitus wit hout complication, without long-term current use of insulin E11.9 [place] [address] [id number] [address] [place] [phone] Nov, [place] [address] [id number] [address] [place] [address] Nov, [place] [address] [id number] [address] [place] [address] Nov, Pneumonia of right lower lob e due to infectious organism J18.1 ; Orthopnea R06.01 ; COPD with acute exacerbation J44.1 and Fatigue, unspecified type R53.83 [place] [address] [id number] [address] [place] [address] Nov, [place] [address] [id number] [address] [place] [address] Nov, [place] [address] [id number] [address] [place] [phone] Oct, Pneumonia of right lower lob e due to infectious organism J18.1 [place] [address] [id number] [address] [place] [address] Oct, Pneumonia of right lower lob e due to infectious organism J18.1 [place] [address] [id number] [address] [place] [phone] Oct, Pneumonia of right lower lob e due to infectious organism J18.1 [place] [id number] [place] [address] Oct, COPD exacerbation J44.1 [place] [address] [address] [place] [id number] [address] [place] [address] Oct, [place] [address] [address] [place] [id number] [address] [place] [address] Oct, COPD exacerbation J44.[address] [address] Oct, Encounter for immunization Z 23 and COPD (chronic obstructive pulmonary disease) J44.[address] [address] Oct, Medicare annual wellness vis it, subsequent Z00.00 ; History of tobacco use Z87.891 ; Need for Zostavax administration Z23 ; Post-menopausal Z78.0 ; Screening for breast cancer Z12.31 ; Screening for colon cancer Z12.11 ; 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 and Encounter for immunization Z23 [id number] [address] [place] [address] Sep, Type 2 diabetes mellitus wit hout complication, without long-term current use of insulin E11.9 [address] [place] [address] Sep, Type 2 diabetes mellitus wit hout complication, without long-term current use of insulin E11.9 ; COPD (chronic obstructive pulmonary disease) J44.9 ; Hypothyroid E03.9 ; GERD (gastroesophageal reflux disease) K21.9 ; CVA (cerebral vascular accident) I63.9 ; Hyperlipidemia LDL goal <100 E78.5 ; Coronary artery disease of [place] heart with stable angina pectoris, unspecified vessel or lesion type I25.118 and 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 [place] [id number] [address] [place] [address] Aug, Type 2 diabetes mellitus wit hout complication, without long-term current use of insulin E11.9 [place] [address] [address] Aug, Hypothyroid E03.9 [place] [address] [address] [place] [id number] Aug, Type 2 diabetes mellitus wit hout complication, without long-term current use of insulin E11.9 ; COPD (chronic obstructive pulmonary disease) J44.9 ; Hypothyroid E03.9 ; GERD (gastroesophageal reflux disease) K21.9 ; CVA (cerebral vascular accident) I63.9 ; Hyperlipidemia LDL goal <100 E78.5 ; Coronary artery disease of [place] heart with stable angina pectoris, unspecified vessel or lesion type I25.118 and Encounter for immunization Z23 [place] [address] [address] Jul, Hypothyroid E03.9 and Hyperc holesterolemia E78.[address] [address] Jul, Hypothyroid E03.9 ; Diabetes mellitus E11.9 and Hypercholesterolemia E78.0 [place] [address] [address] Jul, Hypothyroid E03.9 ; Diabetes mellitus E11.9 and Hypercholesterolemia E78.0 [place] [address] [address] May, CVA (cerebral vascular accid ent) I63.9 and Dizziness R42 [place] [address] [address] May, Dehydration E86.0 ; CVA (cer ebral vascular accident) I63.9 ; COPD (chronic obstructive pulmonary disease) J44.9 and Dizziness R42 [address] [address] March, Diabetes mellitus E11.9 ; An roberto at rest I20.8 ; COPD (chronic obstructive pulmonary disease) J44.9 ; GERD (gastroesophageal reflux disease) K21.9 ; Hypercholesterolemia E78.00 ; CVA (cerebral vascular accident) I63.9 and Hypothyroid E03.9 [facility] [address] [id number] [address] [place] [phone] Jan, Hypothyroid E03.9 and Diabet es mellitus E11.9 [facility] [address] [id number] [address] [place] [id number] Jan, [facility] [address] [id number] [address] [place] [phone] Jan, Diabetes mellitus E11.9 [facility] [address] [id number] [address] [place] [id number] Jan, [facility] [address] [facility] [id number] [address] [place] [id number] Dec, Diabetes mellitus E11.9 ; CV A (cerebral vascular accident) I63.9 ; COPD (chronic obstructive pulmonary disease) J44.9 ; Hypothyroid E03.9 ; GERD (gastroesophageal reflux disease) K21.9 and Hypercholesterolemia E78.00 [facility] [address] [id number] [address] [place] [id number] Nov, Diabetes mellitus E11.9 [facility] [address] [id number] [address] [place] [phone] Nov, [facility] [address] [id number] [address] [place] [phone] Nov, [facility] [address] [id number] [address] [place] [phone] Nov, [facility] [address] [id number] [address] [place] [phone] Nov, Diabetes mellitus E11.9 [facility] [address] [id number] [address] [place] [phone] Oct, Hypothyroid E03.9 [facility] [address] [facility] [id number] [address] [place] [phone] Oct, Diabetes mellitus E11.9 [facility] [address] [facility] [id number] [address] [place] [phone] Oct, COPD (chronic obstructive pu lmonary disease) J44.9 [facility] [address] [facility] [id number] [address] [place] [id number] Oct, [place] [address] [address] [facility] [id number] [address] [place] [phone] Sep, Diabetes mellitus E11.9 ; An roberto at rest I20.8 ; Hypercholesterolemia E78.0 ; COPD (chronic obstructive pulmonary disease) J44.9 ; GERD (gastroesophageal reflux disease) K21.9 ; Dysuria R30.0 ; Acquired hypothyroidism E03.9 ; Encounter for immunization Z23 and Acute cystitis without hematuria N30.00 [facility] [address] [facility] [id number] [address] [place] [id number] Sep, Diabetes mellitus E11.9 [facility] [address] [facility] [id number] [address] [place] [phone] Aug, [facility] [address] [facility] [id number] [address] [place] [phone] Aug, Diabetes mellitus E11.9 [place] [address] [address] [facility] [id number] [address] [place] [address] Jun, Angina at rest I20.8 ; CVA ( cerebral vascular accident) I63.9 ; Diabetes mellitus E11.9 ; Hypercholesterolemia E78.0 ; COPD (chronic obstructive pulmonary disease) J44.9 ; GERD (gastroesophageal reflux disease) K21.9 ; Peptic ulcer K27.9 and Hypothyroid E03.9 [facility] [address] [facility] [id number] [address] [place] [id number] Jun, [place] [address] [address] [facility] [id number] [address] [place] [id number] May, Diabetes mellitus E11.9 ; CV A (cerebral vascular accident) I63.9 ; COPD (chronic obstructive pulmonary disease) J44.9 and Angina at rest I20.8 [place] [address] [address] [place] [id number] [address] [place] [id number] May, [facility] [address] [facility] [id number] [address] [place] [phone] May, Diabetes mellitus E11.9 ; Hy pothyroid E03.9 ; Angina at rest I20.8 ; CVA (cerebral vascular accident) I63.9 ; COPD (chronic obstructive pulmonary disease) J44.9 ; GERD (gastroesophageal reflux disease) K21.9 and Hypercholesterolemia E78.0 [place] [id number] [facility] [id number] [place] [phone] Apr, Hypercholesterolemia E78.0 [place] [address] [address] Apr, [place] [address] [place] [id number] [place] [address] March, Diabetes mellitus E11.9 ; Hy pothyroid E03.9 ; Hypercholesterolemia E78.0 ; COPD (chronic obstructive pulmonary disease) J44.9 ; GERD (gastroesophageal reflux disease) K21.9 ; Constipation K59.00 ; CVA (cerebral vascular accident) I63.9 and Angina at rest I20.8 [place] [address] [address] [place] [id number] [address] [place] [id number] March, [place] [address] [place] [id number] [address] [place] [phone] Feb, [place] [address] [place] [phone] Feb, [place] [address] [address] [place] [id number] [address] [place] [phone] Feb, [facility] [address] [place] [id number] [place] [phone] Jan, Diabetes mellitus E11.9 ; Hy percholesterolemia E78.0 ; CVA (cerebral vascular accident) I63.9 ; GERD (gastroesophageal reflux disease) K21.9 ; Hypothyroid E03.9 and Angina at rest I20.8 [facility] [address] [address] Dec, Diabetes mellitus E11.9 ; Hy pothyroid E03.9 ; Angina at rest I20.8 ; CVA (cerebral vascular accident) I63.9 ; Hypercholesterolemia E78.0 ; COPD (chronic obstructive pulmonary disease) J44.9 ; GERD (gastroesophageal reflux disease) K21.9 and Dysuria R30.0 [place] [address] [address] Nov, [place] [address] [address] Nov, Hypothyroid E03.9 [place] [address] [address] Nov, Hypothyroid E03.9 ; Angina a t rest I20.8 ; CVA (cerebral vascular accident) I63.9 ; Hypercholesterolemia E78.0 ; COPD (chronic obstructive pulmonary disease) J44.9 ; GERD (gastroesophageal reflux disease) K21.9 and Diabetes E11.9 [facility] [address] [address] Oct, Upper respiratory symptom R0 9.89 [place] [id number] [address] Oct, [place] [address] [address] Oct, [place] [address] [address] Oct, [place] [address] [address] Aug, Diabetes mellitus 250.00 ; E ncounter for immunization Z23 ; Hypothyroid E03.9 ; Angina at rest I20.8 ; CVA (cerebral vascular accident) I63.9 ; Hypercholesterolemia E78.0 ; COPD (chronic obstructive pulmonary disease) J44.9 and GERD (gastroesophageal reflux disease) K21.9 [facility] [address] [facility] [id number] [address] [place] [phone] Jul, [facility] [address] [id number] [address] [place] [address] Jun, [facility] [address] [facility] [id number] [address] [place] [phone] Jun, [facility] [address] [facility] [id number] [address] [place] [address] May, [facility] [address] [facility] [id number] [address] [place] [address] May, Diabetes mellitus 250.00 ; H ypothyroidism 244.9 ; Angina at rest 413.9 ; CVA (cerebral infarction) 434.91 ; Hypercholesterolemia 272.0 ; COPD (chronic obstructive pulmonary disease) 496 and GERD (gastroesophageal reflux disease) 530.81 [facility] [address] [facility] [id number] [address] [place] [phone] Oct, [facility] [address] [facility] [id number] [address] [place] [phone] Oct, [facility] [address] [facility] [id number] [address] [place] [phone] Oct, [facility] [address] [facility] [id number] [address] [place] [phone] Oct, [facility] [address] [facility] [id number] [address] [place] [id number] Sep, [facility] [address] [facility] [id number] [address] [place] [phone] Aug, [facility] [address] [facility] [id number] [address] [place] [phone] Aug, [facility] [address] [facility] [id number] [address] [place] [phone] Aug, [facility] [address] [facility] [id number] [address] [place] [phone] 13 Jul, 2010 [facility] [address] [facility] [id number] [address] [place] [phone] Jan, [facility] [address] [facility] [id number] [address] [place] [phone] Oct, [facility] [address] [facility] [id number] [address] [place] [phone] Oct, [facility] [address] [facility] [id number] [address] [place] [phone] Sep, [facility] [address] [facility] [id number] [address] [place] [phone] Apr, [facility] [address] [facility] [id number] [address] [place] [phone] Dec, IMMUNIZATIONS No Known Immunizations SOCIAL HISTORY Never Assessed REASON FOR VISIT Diabetes-Daniel, Via [facility] stay 07/18-07/20 for kidney stones. PLAN OF CARE Activity Details Follow Up 3 Months, prn Reason:CHM/DM w/ Carisa VITAL SIGNS Height 60 in 2018-07-21 Weight 160 lbs 2018-07-21 Temperature 98.0 degrees Fahrenheit 2018-07-21 Heart Rate 80 bpm 2018-07-21 Respiratory Rate 24 2018-07-21 Oximetry on room air:94 % 2018-07-21 BMI 31.24 kg/m2 2018-07-21 Blood pressure systolic 128 mmHg 2018-07-21 Blood pressure diastolic 62 mmHg 2018-07-21 MEDICATIONS Medication Instructions Dosage Frequency Start Date End Date Duration S tatus Nystatin 315473 UNIT/GM Externally Twice a day 1 application to affected area 12h Dec, Active Glucometer 1 glucometer Please dispense 1 insura nce compatible glucometer kit Jan, Active Ranexa 1000 MG Orally Twice a day 1 tablet 12h Active Losartan Potassium 50 MG Orally Once a day 1 tablet 24h Active Lancets test one time per day as directed Active NitroMist 400 MCG/SPRAY Translingual Once a day 1 spray under the ton hadley 24h Active Atorvastatin Calcium 40 mg Orally Once a day at HS 1 tablet Active Levothyroxine Sodium 88 MCG Orally Once a day 1 tablet on an empty stomach in the morning 24h 15 Mar, 2018 Active Isosorbide Mononitrate ER 60 MG Orally Once a day 1 tablet 24h Active OneTouch Delica Lancets 33G - USE TO TEST BLOOD SUGAR ONCE DAILY (E11.9) Active OneTouch Ultra Test - In Vitro 3 times a day USE ONE STRIP T O CHECK GLUCOSE ONCE DAILY DIRECTED 8h Active Clopidogrel Bisulfate 75 MG Orally Once a day 1 tablet 24h Active Aspirin 81 81 MG Orally Once a day 1 tablet 24h Active Fenofibrate 160 MG Orally Once a day 1 tablet with a meal 24h Jan Active Protonix 40 mg Orally twice a day 1 tablet 12h Active Oxygen Portable oxygen concentrator Use 2L nc O2 when up ambulating Oct, Active Acetaminophen 500 MG Orally every 6 hrs 2 tablets 6h Active Janumet 50-1000 mg Orally Twice a day 1 tablet with meals 12h Active RESULTS Name Result Date Reference Range A1C (IN HOUSE) 2018-07-21 A1C IN HOUSE 6.4 4.3 - 5.6 % Previous A1c 6.5 Lot [id number] Exp date 01/2020 A1C (IN HOUSE) 2018-07-21 A1C IN HOUSE 6.4 4.3 - 5.6 % Previous A1c 6.5 Lot [id number] Exp date 01/2020 TSH 2018-07-21 TSH 4.59 0.40-4.50 PROCEDURES Procedure Date Ordered Result Body Site GLYCATED HEMOGLOBIN TEST Jul 21, 2018 LAB NOT BILLED BY [facility] Jul 21, 2018 [facility] VISIT ESTABLISHED PATIENT Jul 21, 2018 JOANNA, ROUTINE* Jul 21, 2018 INSTRUCTIONS MEDICATIONS ADMINISTERED No Known Medications [facility] Chest [facility]--[facility] 06/18/16 Hospitalization History Influenza & COPD exacerbation 02/18 Hospitalization History Cardiac Monitoring 01/2018 Hospitalization History Via [facility], tripped and hit head 04/2018 Hospitalization History Via [facility] [place]- kidney stones 07/18-07/20
--- OUTSIDE RECORDS SUMMARY | 2020-01-07 23:25 | XMS REPORT ---
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 Active [id number] Problem Kidney stones N20.0 Active 429653 07 Problem Type 2 diabetes mellitus wit h other specified complication, without long-term current use of insulin E11.69 Active 74745443 Problem CVA (cerebral vascular accident) I63.9 Active 197184646 Problem Hospital discharge follow-up Z09 A ctive 127169403 Problem Overweight (BMI 25.0-29.9) E66.3 Act esau 659116344 Problem 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 I25.10 Active 769216006109290 Problem Hypothyroid E03.9 Active 12517346 Problem COPD (chronic obstructive pulmonary disease) J44.9 Active 99216653 Problem Osteopenia of spine M85.88 Active 933670528 Problem Former smoker Z87.891 Active 901198 6 Problem Constipation K59.00 Active 3744610 8 Problem Peptic ulcer K27.9 Active 2051459 3 Problem GERD (gastroesophageal reflux disease) K21.9 Active 634516693 Problem Hyperlipidemia LDL goal <100 E78.5 A ctive 33648174 Problem Angina at rest I20.8 Active 73291 001 Problem Type 2 diabetes mellitus wit hout complication, without long-term current use of insulin E11.9 Active [id number] ALLERGIES No Information ENCOUNTERS Encounter Location Date Diagnosis [facility] [address] [facility] [id number] [address] [place] [phone] 04 Aug, 2018 Encounter for immunization Z 23 [facility] [address] [facility] [id number] [address] [place] [phone] 25 Jul, 2018 Hypothyroid E03.9 [facility] [address] [facility] [id number] [address] [place] [phone] 18 Jul, 2018 Type 2 diabetes mellitus wit h other specified complication, without long-term current use of insulin E11.69 ; Kidney stones N20.0 ; Hypothyroid E03.9 ; COPD (chronic obstructive pulmonary disease) J44.9 and Hyperlipidemia LDL goal <100 E78.5 [place] [address] [facility] [id number] [address] [place] [phone] Jun, [place] [address] [facility] [id number] [address] [place] [address] Jun, [place] [address] [facility] [id number] [place] [phone] Jun, [facility] [address] [facility] [id number] [address] [place] [phone] May, [facility] [address] [facility] [id number] [address] [place] [phone] Apr, [facility] [address] [facility] [id number] [address] [place] [phone] Apr, Type 2 diabetes mellitus wit hout complication, without long-term current use of insulin E11.9 ; Hypothyroid E03.9 ; Hyperlipidemia LDL goal <100 E78.5 ; Overweight (BMI 25.0-29.9) E66.3 ; Vaginal candidiasis B37.3 ; COPD (chronic obstructive pulmonary disease) J44.9 ; CVA (cerebral vascular accident) I63.9 ; GERD (gastroesophageal reflux disease) K21.9 ; Angina at rest I20.8 and 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 [facility] [address] [facility] [id number] [address] [place] [address] March, Hypothyroid E03.9 [place] [address] [id number] [address] [place] [phone] March, Hypercholesterolemia E78.00 [facility] [address] [facility] [id number] [address] [place] [address] March, Hypothyroid E03.9 [facility] [address] [facility] [id number] [address] [place] [address] March, Hypercholesterolemia E78.00 [place] [address] [facility] [id number] [address] [place] [address] Feb, Hypercholesterolemia E78.00 [place] [address] [facility] [id number] [address] [place] [phone] Feb, Type 2 diabetes mellitus wit hout complication, without long-term current use of insulin E11.9 [place] [address] [facility] [id number] [address] [place] [phone] Feb, Hypothyroid E03.9 [place] [address] [facility] [id number] [address] [place] [phone] Jan, Hypothyroid E03.9 ; Oxygen d ependent Z99.81 ; Hospital discharge follow-up Z09 ; Type 2 diabetes mellitus without complication, without long-term current use of insulin E11.9 ; 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.119 and History of CVA (cerebrovascular accident) Z86.73 [place] [address] [facility] [id number] [address] [place] [phone] Jan, [place] [address] [facility] [id number] [address] [place] [address] Jan, [place] [address] [facility] [id number] [address] [place] [phone] Jan, Type 2 diabetes mellitus wit hout complication, without long-term current use of insulin E11.9 [place] [address] [facility] [id number] [address] [place] [address] Dec, Hospital discharge follow-up Z09 ; COPD (chronic obstructive pulmonary disease) J44.9 ; Type 2 diabetes mellitus without complication, without long-term current use of insulin E11.9 ; Hypothyroid E03.9 and Vaginal discharge N89.8 [facility] [address] [id number] [address] [place] [address] Dec, Hypothyroid E03.9 [facility] [address] [id number] [address] [place] [address] Dec, Type 2 diabetes mellitus wit hout complication, without long-term current use of insulin E11.9 [facility] [address] [id number] [address] [place] [address] Nov, [place] [address] [id number] [address] [place] [phone] Nov, [place] [address] [id number] [address] [place] [phone] Nov, Pneumonia of right lower lob e due to infectious organism J18.1 ; Orthopnea R06.01 ; COPD with acute exacerbation J44.1 and Fatigue, unspecified type R53.83 [facility] [address] [id number] [address] [place] [phone] Nov, [facility] [address] [id number] [address] [place] [address] Nov, [facility] [address] [id number] [address] [place] [address] Oct, Pneumonia of right lower lob e due to infectious organism J18.1 [facility] [address] [id number] [address] [place] [phone] Oct, Pneumonia of right lower lob e due to infectious organism J18.1 [facility] [address] [id number] [address] [place] [phone] Oct, Pneumonia of right lower lob e due to infectious organism J18.1 [place] [id number] [id number] [address] [place] [address] Oct, COPD exacerbation J44.1 [place] [address] [phone] Oct, [address] [address] Oct, COPD exacerbation J44.[address] [address] Oct, Encounter for immunization Z 23 and COPD (chronic obstructive pulmonary disease) J44.[address] [address] Oct, Medicare annual wellness vis it, subsequent Z00.00 ; History of tobacco use Z87.891 ; Need for Zostavax administration Z23 ; Post-menopausal Z78.0 ; Screening for breast cancer Z12.31 ; Screening for colon cancer Z12.11 ; 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118 and 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 [address] Aug, Type 2 diabetes mellitus wit hout complication, without long-term current use of insulin E11.[address] [address] Aug, Hypothyroid E03.9 [place] [address] [id number] Aug, Type 2 diabetes mellitus wit hout complication, without long-term current use of insulin E11.9 ; COPD (chronic obstructive pulmonary disease) J44.9 ; Hypothyroid E03.9 ; GERD (gastroesophageal reflux disease) K21.9 ; CVA (cerebral vascular accident) I63.9 ; Hyperlipidemia LDL goal <100 E78.5 ; Coronary artery disease of rampart heart with stable angina pectoris, unspecified vessel or lesion type I25.118 and Encounter for immunization Z23 [place] [address] [place] [id number] Jul, Hypothyroid E03.9 and Hyperc holesterolemia E78.[address] [address] Jul, Hypothyroid E03.9 ; Diabetes mellitus E11.9 and Hypercholesterolemia E78.0 [place] [address] [address] Jul, Hypothyroid E03.9 ; Diabetes mellitus E11.9 and Hypercholesterolemia E78.0 [place] [address] [address] May, CVA (cerebral vascular accid ent) I63.9 and Dizziness R42 [place] [address] [address] May, Dehydration E86.0 ; CVA (cer ebral vascular accident) I63.9 ; COPD (chronic obstructive pulmonary disease) J44.9 and Dizziness R42 [place] [address] [address] March, Diabetes mellitus E11.9 ; An roberto at rest I20.8 ; COPD (chronic obstructive pulmonary disease) J44.9 ; GERD (gastroesophageal reflux disease) K21.9 ; Hypercholesterolemia E78.00 ; CVA (cerebral vascular accident) I63.9 and Hypothyroid E03.9 [place] [address] [id number] [address] [place] [phone] Jan, Hypothyroid E03.9 and Diabet es mellitus E11.9 [facility] [address] [id number] [address] [place] [address] Jan, [facility] [address] [facility] [id number] [address] [place] [phone] Jan, Diabetes mellitus E11.9 [facility] [address] [facility] [id number] [address] [place] [address] Jan, [facility] [address] [facility] [id number] [address] [place] [phone] Dec, Diabetes mellitus E11.9 ; CV A (cerebral vascular accident) I63.9 ; COPD (chronic obstructive pulmonary disease) J44.9 ; Hypothyroid E03.9 ; GERD (gastroesophageal reflux disease) K21.9 and Hypercholesterolemia E78.00 [facility] [address] [facility] [id number] [address] [place] [address] Nov, Diabetes mellitus E11.9 [facility] [address] [facility] [id number] [address] [place] [phone] Nov, [facility] [address] [facility] [id number] [address] [place] [address] Nov, [facility] [address] [facility] [id number] [address] [place] [phone] Nov, [facility] [address] [facility] [id number] [address] [place] [address] Nov, Diabetes mellitus E11.9 [facility] [address] [id number] [address] [place] [address] Oct, Hypothyroid E03.9 [facility] [address] [facility] [id number] [address] [place] [address] Oct, Diabetes mellitus E11.9 [facility] [address] [facility] [id number] [address] [place] [phone] Oct, COPD (chronic obstructive pu lmonary disease) J44.9 [facility] [address] [facility] [id number] [address] [place] [phone] Oct, [place] [address] [facility] [id number] [address] [place] [address] Sep, Diabetes mellitus E11.9 ; An roberto at rest I20.8 ; Hypercholesterolemia E78.0 ; COPD (chronic obstructive pulmonary disease) J44.9 ; GERD (gastroesophageal reflux disease) K21.9 ; Dysuria R30.0 ; Acquired hypothyroidism E03.9 ; Encounter for immunization Z23 and Acute cystitis without hematuria N30.00 [place] [address] [facility] [id number] [address] [place] [address] Sep, Diabetes mellitus E11.9 [facility] [address] [facility] [id number] [address] [place] [phone] Aug, [facility] [address] [place] [id number] [address] [place] [address] Aug, Diabetes mellitus E11.9 [facility] [address] [facility] [id number] [place] [phone] Jun, Angina at rest I20.8 ; CVA ( cerebral vascular accident) I63.9 ; Diabetes mellitus E11.9 ; Hypercholesterolemia E78.0 ; COPD (chronic obstructive pulmonary disease) J44.9 ; GERD (gastroesophageal reflux disease) K21.9 ; Peptic ulcer K27.9 and Hypothyroid E03.9 [facility] [address] [facility] [id number] [address] [place] [phone] Jun, [facility] [address] [facility] [id number] [address] [place] [address] May, Diabetes mellitus E11.9 ; CV A (cerebral vascular accident) I63.9 ; COPD (chronic obstructive pulmonary disease) J44.9 and Angina at rest I20.8 [place] [address] [place] [id number] [place] [phone] May, [place] [id number] [facility] [id number] [address] [place] [phone] May, Diabetes mellitus E11.9 ; Hy pothyroid E03.9 ; Angina at rest I20.8 ; CVA (cerebral vascular accident) I63.9 ; COPD (chronic obstructive pulmonary disease) J44.9 ; GERD (gastroesophageal reflux disease) K21.9 and Hypercholesterolemia E78.0 [place] [address] [facility] [id number] [address] [place] [phone] Apr, Hypercholesterolemia E78.0 [place] [address] [facility] [id number] [place] [phone] Apr, [place] [address] [place] [id number] [place] [address] March, Diabetes mellitus E11.9 ; Hy pothyroid E03.9 ; Hypercholesterolemia E78.0 ; COPD (chronic obstructive pulmonary disease) J44.9 ; GERD (gastroesophageal reflux disease) K21.9 ; Constipation K59.00 ; CVA (cerebral vascular accident) I63.9 and Angina at rest I20.8 [place] [address] [facility] [id number] [address] [place] [address] March, [place] [address] [place] [id number] [address] [place] [address] Feb, [place] [address] [facility] [id number] [address] [place] [address] Feb, [place] [address] [facility] [id number] [address] [place] [address] Feb, [place] [address] [facility] [id number] [address] [place] [address] Jan, Diabetes mellitus E11.9 ; Hy percholesterolemia E78.0 ; CVA (cerebral vascular accident) I63.9 ; GERD (gastroesophageal reflux disease) K21.9 ; Hypothyroid E03.9 and Angina at rest I20.8 [place] [address] [facility] [id number] [address] [place] [address] Dec, Diabetes mellitus E11.9 ; Hy pothyroid E03.9 ; Angina at rest I20.8 ; CVA (cerebral vascular accident) I63.9 ; Hypercholesterolemia E78.0 ; COPD (chronic obstructive pulmonary disease) J44.9 ; GERD (gastroesophageal reflux disease) K21.9 and Dysuria R30.0 [facility] [address] [address] Nov, [place] [address] [address] Nov, Hypothyroid E03.9 [place] [address] [address] Nov, Hypothyroid E03.9 ; Angina a t rest I20.8 ; CVA (cerebral vascular accident) I63.9 ; Hypercholesterolemia E78.0 ; COPD (chronic obstructive pulmonary disease) J44.9 ; GERD (gastroesophageal reflux disease) K21.9 and Diabetes E11.9 [facility] [address] [address] Oct, Upper respiratory symptom R0 9.89 [place] [address] [address] Oct, [place] [address] [address] Oct, [facility] [address] [address] Oct, [place] [address] [address] Aug, Diabetes mellitus 250.00 ; E ncounter for immunization Z23 ; Hypothyroid E03.9 ; Angina at rest I20.8 ; CVA (cerebral vascular accident) I63.9 ; Hypercholesterolemia E78.0 ; COPD (chronic obstructive pulmonary disease) J44.9 and GERD (gastroesophageal reflux disease) K21.9 [facility] [address] [place] [id number] Jul, [facility] [address] [id number] [address] [place] [phone] Jun, [facility] [address] [id number] [address] [place] [phone] Jun, [facility] [address] [id number] [address] [place] [address] May, [facility] [address] [facility] [id number] [address] [place] [address] May, Diabetes mellitus 250.00 ; H ypothyroidism 244.9 ; Angina at rest 413.9 ; CVA (cerebral infarction) 434.91 ; Hypercholesterolemia 272.0 ; COPD (chronic obstructive pulmonary disease) 496 and GERD (gastroesophageal reflux disease) 530.81 [facility] [address] [id number] [address] [place] [phone] Oct, [facility] [address] [id number] [address] [place] [address] Oct, [facility] [address] [id number] [address] [place] [address] Oct, [facility] [address] [id number] [address] [place] [phone] Oct, [facility] [address] [id number] [address] [place] [phone] Sep, [facility] [address] [id number] [address] [place] [phone] Aug, [facility] [address] [id number] [address] [place] [address] 15 Aug, 2010 [facility] [address] [id number] [address] [place] [address] 15 Aug, 2010 [facility] [address] [id number] [address] [place] [phone] 13 Jul, 2010 [facility] [address] [id number] [address] [place] [address] 15 Jan, 2010 [facility] [address] [facility] [id number] [address] [place] [address] Oct, [facility] [address] [facility] [id number] [address] [place] [phone] Oct, [facility] [address] [facility] [id number] [address] [place] [phone] Sep, [facility] [address] [facility] [id number] [address] [place] [address] Apr, [facility] [address] [facility] [id number] [address] [place] [address] Dec, IMMUNIZATIONS No Known Immunizations SOCIAL HISTORY Never Assessed REASON FOR VISIT defer lab PLAN OF CARE VITAL SIGNS MEDICATIONS Unknown [...] lobe Pneumonia 02/24/16 Hospitalization History Chest Pain--[facility] 05/03 05/18 Hospitalization History Chest pain--[facility] 06/18/16 Hospitalization History Influenza & COPD exacerbation 12/21 Hospitalization History Cardiac Monitoring 01/2018 Hospitalization History Via [facility] ER, tripped and hit head 04/2018 Hospitalization History [facility]- kidney stones 07/18-07/20
--- OUTSIDE RECORDS SUMMARY | 2020-01-07 23:28 | XMS REPORT | Continuity of Care Document ---
Author Organization Unknown Address Unknown Phone Unavailable Allergies Active Description Code Type Severity Reaction Onset Reported/Identified Relationship to Patient Clinical Status Yes Sulfa (Sulfonamide Antibiotics) [id number] Drug Allergy Unknown N/A 008 Yes tramadol [id number] Drug Allergy Unknown N/A 09/01/2008 Yes fentanyl [id number] Drug Allergy Moderate SEVERE NAUSEA/V 06/07/2011 Yes morphine [id number] Drug Allergy Unknown N/A 07/19/2018 Medications There is no data. Problems Date [...] E941.3 07/12/2011 Ot V45.81 06/04/2012 Ot 250.00 YECENIA B MARISOL WO COMPL, TYPE II OR UNSPEC TY 06/04/2012 Ot 272.4 HYPE RLIPIDEMIA NEC/NOS 06/04/2012 Ot 414.01 COR ONARY ATHEROSCLEROSIS OF [place] CORON 06/04/2012 Ot 414.02 COR ON ATHEROSCLEROSIS AUTOLOG VEIN BYPAS 06/04/2012 Ot 414.2 ORTHO ASSISTANT MOLLY TOTAL OCCLUSION OF CORONARY MARKUS 09/09/2012 Ot 250.00 YECENIA B MARISOL WO COMPL, TYPE II OR UNSPEC TY 09/09/2012 Ot 401.9 HYPE RTENSION NOS 09/09/2012 Ot 414.01 COR ONARY ATHEROSCLEROSIS OF [place] CORON 09/09/2012 Ot 780.4 DIZZ INESS AND GIDDINESS 09/09/2012 Ot 780.79 OTH MALAISE FATIGUE 09/09/2012 Ot 787.02 LEXUS SEA ALONE 09/09/2012 Ot V45.81 AOR TOCORONARY BYPASS 09/09/2012 Ot V45.82 PER CUTANEOUS TRANSLUM CORON ANGIOPLASTY 09/11/2013 MORGAN SALES DO Ot 250. 00 DIAB MARISOL WO COMPL, TYPE II OR UNSPEC TY 09/11/2013 MORGAN SALES DO Ot 412 OLD MYOCARDIAL INFARCT 09/11/2013 MORGAN SALES DO Ot 780. 54 HYPERSOMNIA, UNSPECIFIED 09/11/2013 MORGAN SALES DO Ot 786. 09 RESPIRATORY ABNORM NEC 09/11/2013 MORGAN SALES DO Ot V15. 82 HISTORY OF TOBACCO USE 09/11/2013 MORGAN SALES DO Ot V58. 69 OT MED,LT,CURRENT USE 12/22/2013 AZAR RODARTE MD Ot 250. 00 DIAB MARISOL WO COMPL, TYPE II OR UNSPEC TY 12/22/2013 AZAR RODARTE MD Ot 272. 4 HYPERLIPIDEMIA NEC/NOS 12/22/2013 AZAR RODARTE MD Ot 401. 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 01 CORONARY ATHEROSCLEROSIS OF [place] CORON 12/22/2013 AZAR RODARTE MD Ot 414. 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 10 CAROTID ARTERY OCCLUSION W O CEREBRAL IN 12/22/2013 AZAR RODARTE MD Ot 496 CHR AIRWAY OBSTRUCT NEC 12/22/2013 AZAR RODARTE MD Ot V45. 81 AORTOCORONARY BYPASS 12/22/2013 AZAR RODARTE MD Ot V58. 63 LONG-TERM(CURRENT)USE OF ANTIPLATELET/AN 12/22/2013 AZAR RODARTE MD Ot V58. 69 OTH MED,LT,CURRENT USE 02/10/2014 TRISHA DUNN DO [...] UNSPEC TY 08/18/2014 MARILYN FUCHS MD Ot 599 .0 URIN TRACT INFECTION NOS 08/18/2014 MARILYN FUCHS [...] V76.12 07/17/2015 ASTER FORTE, AZAR Art Ot 397. 0 07/17/2015 ASTER FORTE, AZAR Art Ot 414. 00 07/17/2015 ASTER FORTE, AZAR Art Ot 424. 0 07/17/2015 ASTER FORTE, AZAR Art Ot 496 07/17/2015 ASTER FORTE, AZAR Art Ot 786. 09 07/17/2015 ASTER FORTE, AZAR Art Ot 414. 00 07/17/2015 ASTER FORTE, AZAR Art Ot 496 07/17/2015 ASTER FORTE, AZAR Art Ot 786. 09 07/17/2015 MORGAN SALES DO Ot 278. 00 07/17/2015 MORGAN SALES DO Ot 414. 00 07/17/2015 MORGAN SALES DO Ot 496 07/17/2015 MORGAN SALES DO Ot 780. 54 07/17/2015 MORGAN SALES DO Ot 786. 09 07/17/2015 MORGAN SALES DO Ot 799. 51 07/17/2015 MORGAN SALES DO Ot 782. 5 07/17/2015 MORGAN SALES DO Ot 786. 05 07/17/2015 JEANINE WHITTAKER DO Ot 241.0 07/17/2015 ASTER FORTE, AZAR Art Ot 427. 89 07/20/2015 AZAR RODARTE MD Ot 427. 89 08/01/2015 AZAR RODARTE MD Ot 427. 89 08/09/2015 ОЛЕГ AGUILA Ot 401.9 08/09/2015 ОЛЕГ AGUILA Ot 414.00 08/09/2015 ОЛЕГ AGUILA Ot 780.2 08/09/2015 ОЛЕГ AGUILA Ot 786.09 08/16/2015 AZAR RODARTE MD Ot 401. 9 08/16/2015 AZAR RODARTE MD Ot 414. 00 08/16/2015 AZAR RODARTE MD Ot 780. 2 08/16/2015 AZAR RODARTE MD Ot 786. 09 09/25/2015 AZAR RODARTE MD Ot 401. 9 09/25/2015 AZAR RODARTE MD Ot 414. 00 09/25/2015 AZAR RODARTE MD Ot 780. 2 09/25/2015 AZAR RODARTE MD, Ot 786. 09 10/03/2015 ОЛЕГ AGUILA Ot 401.9 10/03/2015 ОЛЕГ AGUILA Ot 414.00 10/03/2015 ОЛЕГ AGUILA Ot 780.2 10/03/2015 ОЛЕГ AGUILA Ot 786.09 11/24/2015 Ot R11.0 NAUSEA 11/24/2015 Ot R53.1 WEAK NESS 02/21/2016 AZAR RODARTE MD Ot E11. 9 TYPE 2 DIABETES MELLITUS WITHOUT COMPLIC 02/21/2016 AZAR RODARTE MD Ot E78. 5 HYPERLIPIDEMIA, UNSPECIFIED 02/21/2016 AZAR RODARTE MD Ot I10 ESSENTIAL (PRIMARY) HYPERTENSION 02/21/2016 AZAR RODARTE MD Ot I25. 10 ATHSCL HEART DISEASE OF [place] CORONARY 02/21/2016 AZAR RODARTE MD Ot I49. 5 SICK SINUS SYNDROME 02/21/2016 AZAR RODARTE MD, Ot J44. 9 CHRONIC OBSTRUCTIVE PULMONARY DISEASE, U 02/21/2016 AZAR RODARTE MD Ot Z79.899 OTHER NURSING HOME (CURRENT) DRUG THERAPY 02/21/2016 AZAR RODARTE MD Ot Z95. 1 PRESENCE OF AORTOCORONARY BYPASS GRAFT 02/28/2016 HECTOR COTTO MD Ot E03. 9 HYPOTHYROIDISM, UNSPECIFIED 02/28/2016 HECTOR COTTO MD Ot E11. 9 TYPE 2 DIABETES MELLITUS WITHOUT COMPLIC 02/28/2016 HECTOR COTTO MD Ot E78. 0 PURE HYPERCHOLESTEROLEMIA 02/28/2016 HECTOR COTTO MD, Ot I25. 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 9 PNEUMONIA, UNSPECIFIED ORGANISM 02/28/2016 HECTOR COTTO MD, Ot J44. 9 CHRONIC OBSTRUCTIVE PULMONARY DISEASE, U 02/28/2016 HECTOR COTTO MD, Ot M19. 90 UNSPECIFIED OSTEOARTHRITIS, UNSPECIFIED 02/28/2016 HECTOR COTTO MD, Ot M54. 9 DORSALGIA, UNSPECIFIED 02/28/2016 HECTOR COTTO MD, Ot N30. 00 ACUTE CYSTITIS WITHOUT HEMATURIA 02/28/2016 HECTOR COTTO MD, Ot Z86. 73 PRSNL HX OF TIA (TIA), AND CEREB INFRC W 02/28/2016 HECTOR COTTO MD, Ot Z87.891 PERSONAL HISTORY OF NICOTINE DEPENDENCE 02/28/2016 HECTOR COTTO MD, Ot Z95. 1 PRESENCE OF AORTOCORONARY BYPASS GRAFT 03/04/2016 AZAR RODARTE MD Ot E11. 9 TYPE 2 DIABETES MELLITUS WITHOUT COMPLIC 03/04/2016 AZAR RODARTE MD Ot E78. 5 HYPERLIPIDEMIA, UNSPECIFIED 03/04/2016 AZAR RODARTE MD Ot I10 ESSENTIAL (PRIMARY) HYPERTENSION 03/04/2016 AZAR RODARTE MD Ot I25. 10 ATHSCL HEART DISEASE OF [place] CORONARY 03/04/2016 AZAR RODARTE MD Ot I49. 5 SICK SINUS SYNDROME 03/04/2016 AZAR RODARTE MD, Ot J44. 9 CHRONIC OBSTRUCTIVE PULMONARY DISEASE, U 03/04/2016 AZAR RODARTE MD Ot Z79.899 OTHER NURSING HOME (CURRENT) DRUG THERAPY 03/04/2016 AZAR RODARTE MD Ot Z95. 1 PRESENCE OF AORTOCORONARY BYPASS GRAFT 04/03/2016 AZAR RODARTE MD Ot E78. 0 PURE HYPERCHOLESTEROLEMIA 04/03/2016 AZAR RODARTE MD Ot I25. 10 ATHSCL HEART DISEASE OF [place] CORONARY 2016 ОЛЕГ AGUILA Ot E78.2 MIXED HYPERLIPIDEMIA 2016 ОЛЕГ AGUILA Ot I10 ESSENTIAL (PRIMARY) HYPERTENSION 2016 ОЛЕГ AGUILA Ot I25.10 ATHSCL HEART DISEASE OF [place] CORONARY 2016 ОЛЕГ AGUILA Ot 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 04/26/2016 AZAR RODARTE MD Ot E78. 0 PURE HYPERCHOLESTEROLEMIA 04/26/2016 ASTER FORTE, AZAR Art Ot I25. 10 ATHSCL HEART DISEASE OF [place] CORONARY 05/14/2016 ОЛЕГ AGUILA Ot E78.2 MIXED HYPERLIPIDEMIA 05/14/2016 ОЛЕГ AGUILA Ot I10 ESSENTIAL (PRIMARY) HYPERTENSION 05/14/2016 ОЛЕГ AGUILA Ot I25.10 ATHSCL HEART DISEASE OF [place] CORONARY 05/14/2016 ОЛЕГ AGUILA Ot 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 05/20/2016 AZRA DO KODI K Ot E03.9 HYPOTHYROIDISM, UNSPECIFIED 05/20/2016 AZRA SLADE KODI K Ot E11.9 TYPE 2 DIABETES MELLITUS WITHOUT COMPLIC 05/20/2016 AZRA DO KODI K Ot E66.9 OBESITY, UNSPECIFIED 05/20/2016 AZRA SLADE KODI K Ot I25.10 ATHSCL HEART DISEASE OF [place] CORONARY 05/20/2016 BREANA OQUENDO DOA K Ot I25.2 OLD MYOCARDIAL INFARCTION 05/20/2016 AZRA SLADE KODI K Ot J44.9 CHRONIC OBSTRUCTIVE PULMONARY DISEASE, U 05/20/2016 OQUENDO DO, KODI K Ot K21.9 GASTRO-ESOPHAGEAL REFLUX DISEASE WITHOUT 05/20/2016 AZRA SLADE, KODI K Ot R07.89 OTHER CHEST PAIN 05/20/2016 AZRA SLADE KODI K Ot Z87.89 1 PERSONAL HISTORY OF NICOTINE DEPENDENCE 05/20/2016 AZRA SLADE KODI K Ot Z95.1 PRESENCE OF AORTOCORONARY BYPASS GRAFT 05/20/2016 BREANA OQUENDO DOA K Ot Z95.5 PRESENCE OF CORONARY ANGIOPLASTY IMPLANT 05/20/2016 AZRA SLADE KODI K Ot E03.9 HYPOTHYROIDISM, UNSPECIFIED 05/20/2016 AZRA SLADE KODI K Ot E11.9 TYPE 2 DIABETES MELLITUS WITHOUT COMPLIC 05/20/2016 AZRA SLADE KODI K Ot E66.9 OBESITY, UNSPECIFIED 05/20/2016 OQUENDO DO KODI K Ot I25.10 ATHSCL HEART DISEASE OF [place] CORONARY 05/20/2016 AZRA SLADE KODI K Ot I25.2 OLD MYOCARDIAL INFARCTION 05/20/2016 AZRA SLADE KODI K Ot J44.9 CHRONIC OBSTRUCTIVE PULMONARY DISEASE, U 05/20/2016 AZRA SLADE KODI K Ot K21.9 GASTRO-ESOPHAGEAL REFLUX DISEASE WITHOUT 05/20/2016 KODI OQUENDO DO Ot R07.89 OTHER CHEST PAIN 05/20/2016 KODI OQUENDO DO Ot Z87.89 1 PERSONAL HISTORY OF NICOTINE DEPENDENCE 05/20/2016 KODI OQUENDO DO Ot Z95.1 PRESENCE OF AORTOCORONARY BYPASS GRAFT 05/20/2016 AZRA SLADE KODI K Ot Z95.5 PRESENCE OF CORONARY ANGIOPLASTY IMPLANT 06/11/2016 ОЛЕГ AGUILA Ot E78.2 MIXED HYPERLIPIDEMIA 06/11/2016 ОЛЕГ AGUILA Ot I10 ESSENTIAL (PRIMARY) HYPERTENSION 06/11/2016 ОЛЕГ AGUILA Ot I25.10 ATHSCL HEART DISEASE OF [place] CORONARY 06/11/2016 ОЛЕГ AGUILA Ot I65.23 OCCLUSION AND STENOSIS OF BILATERAL [place] 06/20/2016 JAKY BONILLA MD Ot E03 .9 HYPOTHYROIDISM, UNSPECIFIED 06/20/2016 JAKY BONILLA MD Ot E78 .5 HYPERLIPIDEMIA, UNSPECIFIED 06/20/2016 JAKY BONILLA MD Ot I10 ESSENTIAL (PRIMARY) HYPERTENSION 06/20/2016 JAKY BONILLA MD Ot I25.10 ATHSCL HEART DISEASE OF [place] CORONARY 06/20/2016 JAKY BONILLA MD Ot 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 06/20/2016 JAKY BONILLA MD Ot I49 .5 SICK SINUS SYNDROME 06/20/2016 JAKY BONILLA MD, Ot J44 .9 CHRONIC OBSTRUCTIVE PULMONARY DISEASE, U 06/20/2016 JAKY BONILLA MD Ot K20 .9 ESOPHAGITIS, UNSPECIFIED 06/20/2016 JAKY BONILLA MD Ot K44 .9 DIAPHRAGMATIC HERNIA WITHOUT OBSTRUCTION 06/20/2016 JAKY BONILLA MD Ot 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 06/20/2016 JAKY BONILLA MD Ot Z95 .1 PRESENCE OF AORTOCORONARY BYPASS GRAFT 07/07/2016 ОЛЕГ AGUILA Ot E78.2 MIXED HYPERLIPIDEMIA 07/07/2016 ОЛЕГ AGUILA Ot I10 ESSENTIAL (PRIMARY) HYPERTENSION 07/07/2016 STANTON-WILI PA, ОЛЕГ K Ot I25.10 ATHSCL HEART DISEASE OF [place] CORONARY 07/07/2016 ОЛЕГ AGUILA Ot 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 07/15/2016 ОЛЕГ AGUILA Ot E78.2 MIXED HYPERLIPIDEMIA 07/15/2016 ОЛЕГ AGUILA Ot I10 ESSENTIAL (PRIMARY) HYPERTENSION 07/15/2016 ОЛЕГ AGUILA Ot I25.10 ATHSCL HEART DISEASE OF [place] CORONARY 07/15/2016 ОЛЕГ AGUILA Ot 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 10/20/2017 MARIA MACKEY CHEF PASSENGER VESSEL Ot Z78 .0 ASYMPTOMATIC MENOPAUSAL STATE 10/21/2017 MARIA MACKEY CHEF PASSENGER VESSEL Ot Z87.891 PERSONAL HISTORY OF NICOTINE DEPENDENCE 10/21/2017 Ot V76.12 OTH SCREEN MAMMO- MALIGN NEOPLASM OF [place] 10/21/2017 JEANINE WHITTAKER DO Ot V76.12 OTH SCREEN MAMMO-MALIGN NEOPLASM OF [place] 10/21/2017 AZAR RODARTE MD Ot 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 00 CORON ATHEROSCLER NOS TYPE VESSEL, NATIV 10/21/2017 AZAR RODARTE MD Ot 424. 0 MITRAL VALVE DISORDER 10/21/2017 AZAR RODARTE MD Ot 496 CHR AIRWAY OBSTRUCT NEC 10/21/2017 AZAR RODARTE MD Ot 786. 09 RESPIRATORY ABNORM NEC 10/21/2017 AZAR RODARTE MD Ot 414. 00 CORON ATHEROSCLER NOS TYPE VESSEL, NATIV 10/21/2017 AZAR RODARTE MD Ot 496 CHR AIRWAY OBSTRUCT NEC 10/21/2017 AZAR RODARTE MD Ot 786. 09 RESPIRATORY ABNORM NEC 10/21/2017 MORGAN SALES DO Ot 278. 00 OBESITY, NOS 10/21/2017 MORGAN SALES DO Ot 414. 00 CORON ATHEROSCLER NOS TYPE VESSEL, NATIV 10/21/2017 MORGAN SALES DO Ot 496 CHR AIRWAY OBSTRUCT NEC 10/21/2017 MORGAN SALES DO Ot 780. 54 HYPERSOMNIA, UNSPECIFIED 10/21/2017 MORGAN SALES DO Ot 786. 09 RESPIRATORY ABNORM NEC 10/21/2017 MÓNICA SLADE MORGAN Myles Ot 799. 51 ATTENTION OR CONCENTRATION DEFICIT 10/21/2017 MÓNICA SLADE MORGAN Myles Ot 782. 5 CYANOSIS 10/21/2017 MÓNICA DO MORGAN Myles Ot 786. 05 SHORTNESS OF BREATH 10/21/2017 JEANINE WHITTAKER DO Ot 241.0 NONTOX UNINODULAR GOITER 10/21/2017 ASTER FORTE, AZAR Art Ot 427. 89 CARDIAC DYSRHYTHMIAS NEC 10/21/2017 ОЛЕГ AGUILA Ot 401.9 HYPERTENSION NOS 10/21/2017 ОЛЕГ AGUILA Ot 414.00 CORON ATHEROSCLER NOS TYPE VESSEL, NATIV 10/21/2017 ОЛЕГ AGUILA Ot 780.2 SYNCOPE AND COLLAPSE 10/21/2017 ОЛЕГ AGUILA Ot 786.09 RESPIRATORY ABNORM NEC 10/21/2017 AZAR RODARTE MD Ot 401. 9 HYPERTENSION NOS 10/21/2017 AZAR RODARTE MD Ot 414. 00 CORON ATHEROSCLER NOS TYPE VESSEL, NATIV 10/21/2017 AZAR RODRATE MD Ot 780. 2 SYNCOPE AND COLLAPSE 10/21/2017 AZAR RODARTE MD Ot 786. 09 RESPIRATORY ABNORM NEC 10/21/2017 AZAR RODARTE MD Ot E78. 0 PURE HYPERCHOLESTEROLEMIA 10/21/2017 AZAR RODARTE MD Ot I25. 10 ATHSCL HEART DISEASE OF [place] CORONARY 10/21/2017 ОЛЕГ AGUILA Ot E78.2 MIXED HYPERLIPIDEMIA 10/21/2017 ОЛЕГ AGUILA Ot I10 ESSENTIAL (PRIMARY) HYPERTENSION 10/21/2017 ОЛЕГ AGUILA Ot I25.10 ATHSCL HEART DISEASE OF [place] CORONARY 10/21/2017 ОЛЕГ AGUILA Ot 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 10/21/2017 MARIA MACKEY CHEF PASSENGER VESSEL Ot Z12.31 ENCNTR SCREEN MAMMOGRAM FOR MALIGNANT NE 10/21/2017 MARIA MACKEY CHEF PASSENGER VESSEL Ot Z78 .0 ASYMPTOMATIC MENOPAUSAL STATE 10/21/2017 MARIA MACKEY CHEF PASSENGER VESSEL Ot Z87.891 PERSONAL HISTORY OF NICOTINE DEPENDENCE 10/22/2017 MARIA MACKEY CHEF PASSENGER VESSEL Ot Z87.891 PERSONAL HISTORY OF NICOTINE DEPENDENCE 11/10/2017 MIKE FORTE, GLENDY M Ot Z01.818 ENCOUNTER FOR OTHER PREPROCEDURAL EXAMIN 11/10/2017 MIKE FROTE, GLENDY M Ot Z12.11 ENCOUNTER FOR SCREENING [...] ENCOUNTER FOR SCREENING FOR MALIGNANT NE 11/13/2017 MAME MACKEYWNYA Dajuan CHEF PASSENGER VESSEL Ot Z78 .0 ASYMPTOMATIC MENOPAUSAL STATE 11/13/2017 MARIA MACKEY CHEF PASSENGER VESSEL Ot Z78 .0 ASYMPTOMATIC MENOPAUSAL STATE 11/13/2017 JEANINE WHITTAKER DO Ot V76.12 OTH SCREEN MAMMO-MALIGN NEOPLASM OF [place] 11/13/2017 AZAR RODARTE MD Ot 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 00 CORON ATHEROSCLER NOS TYPE VESSEL, NATIV 11/13/2017 AZAR RODARTE MD Ot 424. 0 MITRAL VALVE DISORDER 11/13/2017 AZAR RODARTE MD Ot 496 CHR AIRWAY OBSTRUCT NEC 11/13/2017 AZAR RODARTE MD Ot 786. 09 RESPIRATORY ABNORM NEC 11/13/2017 AZAR RODARTE MD Ot 414. 00 CORON ATHEROSCLER NOS TYPE VESSEL, NATIV 11/13/2017 AZAR RODARTE MD Ot 496 CHR AIRWAY OBSTRUCT NEC 11/13/2017 ASTER FORTE, AZAR Art Ot 786. 09 RESPIRATORY ABNORM NEC 11/13/2017 MORGAN SALES DO Ot 278. 00 OBESITY, NOS 11/13/2017 MORGAN SALES DO Ot 414. 00 CORON ATHEROSCLER NOS TYPE VESSEL, NATIV 11/13/2017 MORGAN SALES DO Ot 496 CHR AIRWAY OBSTRUCT NEC 11/13/2017 MORGAN SALES DO Ot 780. 54 HYPERSOMNIA, UNSPECIFIED 11/13/2017 MORGAN SALES DO Ot 786. 09 RESPIRATORY ABNORM NEC 11/13/2017 MORGAN SALES DO Ot 799. 51 ATTENTION OR CONCENTRATION DEFICIT 11/13/2017 MORGAN SALES DO Ot 782. 5 CYANOSIS 11/13/2017 MORGAN SALES DO Ot 786. 05 SHORTNESS OF BREATH 11/13/2017 CHRISTIANOJACQUIE JEANINE SLADE Ot 241.0 NONTOX UNINODULAR GOITER 11/13/2017 ASTER FORTE, AZAR Art Ot 427. 89 CARDIAC DYSRHYTHMIAS NEC 11/13/2017 ОЛЕГ AGUILA Ot 401.9 HYPERTENSION NOS 11/13/2017 ОЛЕГ AGUILA Ot 414.00 CORON ATHEROSCLER NOS TYPE VESSEL, NATIV 11/13/2017 ОЛЕГ AGUILA Ot 780.2 SYNCOPE AND COLLAPSE 11/13/2017 ОЛЕГ AGUILA Ot 786.09 RESPIRATORY ABNORM NEC 11/13/2017 AZAR RODARTE MD Ot 401. 9 HYPERTENSION NOS 11/13/2017 AZAR RODARTE MD Ot 414. 00 CORON ATHEROSCLER NOS TYPE VESSEL, NATIV 11/13/2017 AZAR RODARTE MD Ot 780. 2 SYNCOPE AND COLLAPSE 11/13/2017 AZAR RODARTE MD Ot 786. 09 RESPIRATORY ABNORM NEC 11/13/2017 AZAR RODARTE MD Ot E78. 0 PURE HYPERCHOLESTEROLEMIA 11/13/2017 AZAR RODARTE MD Ot I25. 10 ATHSCL HEART DISEASE OF [place] CORONARY 11/13/2017 ОЛЕГ AGUILA Ot E78.2 MIXED HYPERLIPIDEMIA 11/13/2017 ОЛЕГ AGUILA Ot I10 ESSENTIAL (PRIMARY) HYPERTENSION 11/13/2017 ОЛЕГ AGUILA Ot I25.10 ATHSCL HEART DISEASE OF [place] CORONARY 11/13/2017 ОЛЕГ AGUILA Ot 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 11/13/2017 BECKYLMARIA CHEF PASSENGER VESSEL Ot Z12.31 ENCNTR SCREEN MAMMOGRAM FOR MALIGNANT NE 11/13/2017 MARIA MACKEY CHEF PASSENGER VESSEL Ot Z78 .0 ASYMPTOMATIC MENOPAUSAL STATE 11/13/2017 BECKYLMARIA CHEF PASSENGER VESSEL Ot K76 .0 FATTY (CHANGE OF) LIVER, NOT ELSEWHERE C 11/13/2017 MADLMARIA CHEF PASSENGER VESSEL Ot Z12 .2 ENCNTR SCREEN FOR MALIGNANT NEOPLASM OF 11/13/2017 MARIA MACKEY L CHEF PASSENGER VESSEL Ot Z87.891 PERSONAL HISTORY OF NICOTINE DEPENDENCE 11/13/2017 MADLSHERIA L CHEF PASSENGER VESSEL Ot Z95 .1 PRESENCE OF AORTOCORONARY BYPASS GRAFT 11/13/2017 MIKE FORTE, GLENDY Myles Ot Z01.818 ENCOUNTER FOR OTHER PREPROCEDURAL EXAMIN 11/13/2017 MIKE FORTE, GLENDY Myles Ot Z12.11 ENCOUNTER FOR SCREENING FOR MALIGNANT NE 11/14/2017 SHERI MACKEYA L CHEF PASSENGER VESSEL Ot 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, 11/14/2017 MADLSHERIA L CHEF PASSENGER VESSEL Ot M85.88 OTH DISRD OF BONE DENSITY AND STRUCTURE, 11/21/2017 BECKYLMARIA CHEF PASSENGER VESSEL Ot K76 .0 FATTY (CHANGE OF) LIVER, NOT ELSEWHERE C 11/21/2017 MADLSHERIA L CHEF PASSENGER VESSEL Ot Z12 .2 ENCNTR SCREEN FOR MALIGNANT NEOPLASM OF 11/21/2017 MADLSHERIA L CHEF PASSENGER VESSEL Ot Z87.891 PERSONAL HISTORY OF NICOTINE DEPENDENCE 11/21/2017 MADLSHERIA L CHEF PASSENGER VESSEL Ot Z95 .1 PRESENCE OF AORTOCORONARY BYPASS GRAFT 12/03/2017 BECKYLMARIA L CHEF PASSENGER VESSEL Ot K76 .0 FATTY (CHANGE OF) LIVER, NOT ELSEWHERE C 12/03/2017 MADLSHERIA L CHEF PASSENGER VESSEL Ot Z12 .2 ENCNTR SCREEN FOR MALIGNANT NEOPLASM OF 12/03/2017 MADL, MARIA L CHEF PASSENGER VESSEL Ot Z87.891 PERSONAL HISTORY OF NICOTINE DEPENDENCE 12/03/2017 MARIA MACKEY CHEF PASSENGER VESSEL Ot Z95 .1 PRESENCE OF AORTOCORONARY BYPASS GRAFT 12/09/2017 MARIA MACKEY CHEF PASSENGER VESSEL Ot 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, 12/09/2017 MARIA MACKEY CHEF PASSENGER VESSEL Ot M85.88 OTH DISRD OF BONE DENSITY AND STRUCTURE, 12/09/2017 MARIA MACKEY CHEF PASSENGER VESSEL Ot Z13.820 ENCOUNTER FOR SCREENING FOR OSTEOPOROSIS 12/09/2017 MARIA MACKEY CHEF PASSENGER VESSEL Ot Z78 .0 ASYMPTOMATIC MENOPAUSAL STATE 12/18/2017 MARIA MACKEY CHEF PASSENGER VESSEL Ot 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, 12/18/2017 MARIA MACKEY CHEF PASSENGER VESSEL Ot M85.88 OTH DISRD OF BONE DENSITY AND STRUCTURE, 12/18/2017 MARIA MACKEY CHEF PASSENGER VESSEL Ot Z13.820 ENCOUNTER FOR SCREENING FOR OSTEOPOROSIS 12/18/2017 MARIA MACKEY CHEF PASSENGER VESSEL Ot Z78 .0 ASYMPTOMATIC MENOPAUSAL STATE 12/24/2017 ALLAN GUZMAN MD Ot E03.9 HYPOTHYROIDISM, UNSPECIFIED 12/24/2017 ALLAN GUZMAN MD Ot E11.9 TYPE 2 DIABETES MELLITUS WITHOUT COMPLIC 12/24/2017 ALLAN GUZMAN MD, Ot E78.5 HYPERLIPIDEMIA, UNSPECIFIED 12/24/2017 ALLAN GUZMAN MD, Ot I10 ESSENTIAL (PRIMARY) HYPERTENSION 12/24/2017 ALLAN GUZMAN MD Ot I25.1 0 ATHSCL HEART DISEASE OF [place] CORONARY 12/24/2017 ALLAN GUZMAN MD, Ot I25.2 OLD MYOCARDIAL INFARCTION 12/24/2017 ALLAN GUZMAN MD, Ot J11.1 FLU DUE TO UNIDENTIFIED INFLUENZA VIRUS 12/24/2017 ALLAN GUZMAN MD, Ot J44.1 CHRONIC OBSTRUCTIVE PULMONARY DISEASE W 12/24/2017 ALLAN GUZMAN MD, Ot K21.9 GASTRO-ESOPHAGEAL REFLUX DISEASE WITHOUT 12/24/2017 ALLAN GUZMAN MD Ot K44.9 DIAPHRAGMATIC HERNIA WITHOUT OBSTRUCTION 12/24/2017 ALLAN GUZMAN MD Ot Z86.7 3 PRSNL HX OF TIA (TIA), AND CEREB INFRC W 12/24/2017 ALLAN GUZMAN MD Ot Z87.0 1 PERSONAL HISTORY OF PNEUMONIA (RECURRENT 12/24/2017 ALLAN GUZMAN MD Ot Z87.8 91 PERSONAL HISTORY OF NICOTINE DEPENDENCE 12/24/2017 ALLAN GUZMAN MD Ot Z95.1 PRESENCE OF AORTOCORONARY BYPASS GRAFT 12/24/2017 ALLAN GUZMAN MD Ot Z95.5 PRESENCE OF CORONARY ANGIOPLASTY IMPLANT 12/24/2017 ALLAN GUZMAN MD Ot Z99.8 1 DEPENDENCE ON SUPPLEMENTAL OXYGEN 01/05/2018 JAKY BONILLA MD Ot E03 .9 HYPOTHYROIDISM, UNSPECIFIED 01/05/2018 JAKY BONILLA MD Ot E11 .9 TYPE 2 DIABETES MELLITUS WITHOUT COMPLIC 01/05/2018 JAKY BONILLA MD, Ot E78 .5 HYPERLIPIDEMIA, UNSPECIFIED 01/05/2018 JAKY BONILLA MD, Ot I10 ESSENTIAL (PRIMARY) HYPERTENSION 01/05/2018 JAKY BONILLA MD, Ot 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 01/05/2018 JAKY BONILLA MD, Ot 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 01/05/2018 JAKY BONILLA MD, Ot I49 .5 SICK SINUS SYNDROME 01/05/2018 JAKY BONILLA MD, Ot 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 01/05/2018 JAKY BONILLA MD, Ot J44 .9 CHRONIC OBSTRUCTIVE PULMONARY DISEASE, U 01/05/2018 JAKY BONILLA MD, Ot K21 .9 GASTRO-ESOPHAGEAL REFLUX DISEASE WITHOUT 01/05/2018 JAKY BONILLA MD, Ot K44 .9 DIAPHRAGMATIC HERNIA WITHOUT OBSTRUCTION 01/05/2018 JAKY BONILLA MD, Ot M19.91 PRIMARY OSTEOARTHRITIS, UNSPECIFIED SITE 01/05/2018 JAKY BONILLA MD, Ot M54 .9 DORSALGIA, UNSPECIFIED 01/05/2018 JAKY BONILLA MD, Ot R00 .1 BRADYCARDIA, UNSPECIFIED 01/05/2018 JAKY BONILLA MD, Ot Z79.84 NURSING HOME (CURRENT) USE OF ORAL HYPOGLYC 01/05/2018 JAKY OBNILLA MD, Ot Z86.73 PRSNL HX OF TIA (TIA), AND CEREB INFRC W 01/05/2018 JAKY BONILLA MD Ot Z87.01 PERSONAL HISTORY OF PNEUMONIA (RECURRENT 01/05/2018 JAKY BONILLA MD Ot Z87.891 PERSONAL HISTORY OF NICOTINE DEPENDENCE 01/05/2018 JAKY BONILLA MD Ot Z95 .1 PRESENCE OF AORTOCORONARY BYPASS GRAFT 01/05/2018 JAKY BONILLA MD Ot Z95 .5 PRESENCE OF CORONARY ANGIOPLASTY IMPLANT 01/05/2018 JAKY BONILLA MD Ot Z99.81 DEPENDENCE ON SUPPLEMENTAL OXYGEN 01/15/2018 AZAR RODARTE MD Ot E78. 5 HYPERLIPIDEMIA, UNSPECIFIED 01/15/2018 AZAR RODARTE MD Ot I10 ESSENTIAL (PRIMARY) HYPERTENSION 01/15/2018 AZAR RODARTE MD Ot I25. 10 ATHSCL HEART DISEASE OF [place] CORONARY 01/15/2018 AZAR RODARTE MD Ot I34. 0 NONRHEUMATIC MITRAL (VALVE) INSUFFICIENC 01/15/2018 AZAR RODARTE MD Ot R07. 9 CHEST PAIN, UNSPECIFIED 01/20/2018 AZAR RODARTE MD Ot E78. 2 MIXED HYPERLIPIDEMIA 01/20/2018 AZAR RODARTE MD Ot I10 ESSENTIAL (PRIMARY) HYPERTENSION 01/20/2018 AZAR RODARTE MD Ot I25. 10 ATHSCL HEART DISEASE OF [place] CORONARY 01/20/2018 AZAR RODARTE MD Ot R07. 9 CHEST PAIN, UNSPECIFIED 02/10/2018 AZAR RODARTE MD Ot E78. 2 MIXED HYPERLIPIDEMIA 02/10/2018 AZAR RODARTE MD Ot I10 ESSENTIAL (PRIMARY) HYPERTENSION 02/10/2018 AZAR RODARTE MD Ot I25. 10 ATHSCL HEART DISEASE OF [place] CORONARY 02/10/2018 AZAR RODARTE MD Ot R07. 9 CHEST PAIN, UNSPECIFIED 04/02/2018 ALLISON PUCKETT MD Ot E03.9 HYPOTHYROIDISM, UNSPECIFIED 04/02/2018 ALLISON PUCKETT MD Ot E11.9 TYPE 2 DIABETES MELLITUS WITHOUT COMPLIC 04/02/2018 ALLISON PUCKETT MD Ot E78.00 PURE HYPERCHOLESTEROLEMIA, UNSPECIFIED 04/02/2018 ALLISON PUCKETT MD Ot I10 ESSENTIAL (PRIMARY) HYPERTENSION 04/02/2018 ALLISON PUCKETT MD Ot I25.10 ATHSCL HEART DISEASE OF [place] CORONARY 04/02/2018 ALLISON PUCKETT MD, Ot I25.2 OLD MYOCARDIAL INFARCTION 04/02/2018 ALLISON [...] BODY OF OTH PART 04/02/2018 ALLISON PUCKETT MD Ot S06.0X1A CONCUSSION W LOC OF 30 MINUTES OR LESS, 04/02/2018 ALLISON PUCKETT MD Ot S50.312A ABRASION OF LEFT ELBOW, INITIAL ENCOUNTE 04/02/2018 ALLISON PUCKETT MD Ot W01.198A FALL SAME LEV FROM SLIP/TRIP W STRIKE AG 04/02/2018 ALLISON PUCKETT MD Ot Z23 ENCOUNTER FOR IMMUNIZATION 04/02/2018 ALLISON PUCKETT MD Ot Z79.02 NURSING HOME (CURRENT) USE OF ANTITHROMBOTI 04/02/2018 ALLISON PUCKETT MD Ot 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 04/02/2018 ALLISON PUCKETT MD Ot Z82.49 FAMILY HX OF ISCHEM HEART DIS AND OTH DI 04/02/2018 ALLISON PUCKETT MD, Ot Z86.73 PRSNL HX OF TIA (TIA), AND CEREB INFRC W 04/02/2018 ALLISON PUCKETT MD Ot Z87.01 PERSONAL HISTORY OF PNEUMONIA (RECURRENT 04/02/2018 ALLISON PUCKETT MD Ot Z87.19 PERSONAL HISTORY OF OTHER DISEASES OF TH 04/02/2018 ALLISON PUCKETT MD Ot Z87.891 PERSONAL HISTORY OF NICOTINE [...] OF CORONARY ANGIOPLASTY IMPLANT 04/06/2018 ALLISON PUCKETT MD, Ot E03.9 HYPOTHYROIDISM, UNSPECIFIED 04/06/2018 ALLISON PUCKETT MD, Ot E11.9 TYPE 2 DIABETES MELLITUS WITHOUT COMPLIC 04/06/2018 ALLISON PUCKETT MD, Ot E78.00 PURE HYPERCHOLESTEROLEMIA, UNSPECIFIED 04/06/2018 ALLISON PUCKETT MD, Ot I10 ESSENTIAL (PRIMARY) HYPERTENSION 04/06/2018 ALLISON PUCKETT MD, Ot I25.10 ATHSCL HEART DISEASE OF [place] CORONARY 04/06/2018 ALLISON PUCKETT MD, Ot I25.2 [...] 30 MINUTES OR LESS, 04/06/2018 ALLISON PUCKETT MD, Ot S50.312A ABRASION OF LEFT ELBOW, INITIAL ENCOUNTE 04/06/2018 ALLISON PUCKETT MD, Ot W01.198A FALL SAME LEV FROM SLIP/TRIP W STRIKE AG 04/06/2018 ALLISON PUCKETT MD, Ot Z23 ENCOUNTER FOR IMMUNIZATION 04/06/2018 ALLISON PUCKETT MD, Ot 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 04/06/2018 ALLISON PUCKETT MD, Ot 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 04/06/2018 ALLISON PUCKETT MD, Ot Z82.49 FAMILY HX OF ISCHEM HEART DIS AND OTH DI 04/06/2018 ALLISON PUCKETT MD, Ot Z86.73 PRSNL HX OF TIA (TIA), AND CEREB INFRC W 04/06/2018 ALLISON PUCKETT MD, Ot Z87.01 PERSONAL HISTORY OF PNEUMONIA (RECURRENT 04/06/2018 ALLISON PUCKETT MD Ot Z87.19 PERSONAL HISTORY OF OTHER DISEASES OF TH 04/06/2018 ALLISON PUCKETT MD, Ot Z87.891 PERSONAL HISTORY OF NICOTINE DEPENDENCE 04/06/2018 ALLISON PUCKETT MD Ot Z88.2 ALLERGY STATUS TO SULFONAMIDES STATUS 04/06/2018 ALLISON PUCKETT MD, Ot Z88.6 ALLERGY STATUS TO ANALGESIC AGENT STATUS 04/06/2018 ALLISON PUCKETT MD, Ot Z88.8 ALLERGY STATUS TO OT DRUG/MEDS/BIOL SUB 04/06/2018 ALLISON PUKCETT MD Ot 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 [...] MD Ot I25.10 ATHSCL HEART DISEASE OF [place] CORONARY 04/08/2018 ALLISON PUCKETT MD, Ot I25.2 OLD MYOCARDIAL INFARCTION 04/08/2018 ALLISON [...] 30 MINUTES OR LESS, 04/08/2018 ALLISON PUCKETT MD Ot S50.312A ABRASION OF LEFT ELBOW, INITIAL ENCOUNTE 04/08/2018 ALLISON PUCKETT MD, Ot W01.198A FALL SAME LEV FROM SLIP/TRIP W STRIKE AG 04/08/2018 ALLISON PUCKETT MD Ot Z23 ENCOUNTER FOR IMMUNIZATION 04/08/2018 ALLISON PUCKETT MD, Ot 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 04/08/2018 ALLISON PUCKETT MD, Ot 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 04/08/2018 ALLISON PUCKETT [...] Z87.891 PERSONAL HISTORY OF NICOTINE DEPENDENCE 04/08/2018 TONAWANDA MD, LALISON D Ot Z88.2 ALLERGY STATUS TO SULFONAMIDES STATUS 04/08/2018 ALLISON PUCKETT MD, Ot Z88.6 ALLERGY STATUS TO ANALGESIC AGENT STATUS 04/08/2018 ALLISON PUCKETT MD, Ot Z88.8 ALLERGY STATUS TO OTH DRUG/MEDS/BIOL SUB 04/08/2018 ALLISON PUCKETT MD, Ot 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 CERVIX AND UTER 04/08/2018 ALLISON PUCKETT MD Ot Z95.1 PRESENCE OF AORTOCORONARY BYPASS GRAFT 04/08/2018 ALLISON PUCKETT MD, Ot Z95.5 PRESENCE OF CORONARY ANGIOPLASTY IMPLANT 07/19/2018 ОЛЕГ AGUILA Ot E78.2 MIXED HYPERLIPIDEMIA 07/19/2018 ОЛЕГ AGUILA Ot I10 ESSENTIAL (PRIMARY) HYPERTENSION 07/19/2018 ОЛЕГ AGUILA Ot I25.10 ATHSCL HEART DISEASE OF [place] CORONARY 07/19/2018 ОЛЕГ AGUILA Ot 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 07/19/2018 MARIA MACKEY Ot Z12.31 ENCNTR SCREEN MAMMOGRAM FOR MALIGNANT NE 07/19/2018 JEANINE WHITTAKER DO Ot V76.12 OTH SCREEN MAMMO-MALIGN NEOPLASM OF [place] 07/19/2018 AZAR RODARTE MD Ot 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 00 CORON ATHEROSCLER NOS TYPE VESSEL, NATIV 07/19/2018 AZAR RODARTE MD Ot 424. 0 MITRAL VALVE DISORDER 07/19/2018 AZAR RODARTE MD Ot 496 CHR AIRWAY OBSTRUCT NEC 07/19/2018 AZAR RODARTE MD Ot 786. 09 RESPIRATORY ABNORM NEC 07/19/2018 AZAR RODARTE MD Ot 414. 00 CORON ATHEROSCLER NOS TYPE VESSEL, NATIV 07/19/2018 AZAR RODARTE MD Ot 496 CHR AIRWAY OBSTRUCT NEC 07/19/2018 AZAR RODARTE MD Ot 786. 09 RESPIRATORY ABNORM NEC 07/19/2018 MORGAN SALES DO Ot 278. 00 OBESITY, NOS 07/19/2018 MORGAN SALES DO Ot 414. 00 CORON ATHEROSCLER NOS TYPE VESSEL, NATIV 07/19/2018 MORGAN SALES DO Ot 496 CHR AIRWAY OBSTRUCT NEC 07/19/2018 MORGAN SALES DO Ot 780. 54 HYPERSOMNIA, UNSPECIFIED 07/19/2018 MORGAN SALES DO Ot 786. 09 RESPIRATORY ABNORM NEC 07/19/2018 MORGAN SALES DO Ot 799. 51 ATTENTION OR CONCENTRATION DEFICIT 07/19/2018 MORGAN SALES DO Ot 782. 5 CYANOSIS 07/19/2018 MORGAN SALES DO Ot 786. 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 9 HYPERTENSION NOS 07/19/2018 AZAR RODARTE MD Ot 414. 00 CORON ATHEROSCLER NOS TYPE VESSEL, NATIV 07/19/2018 AZAR RODARTE MD Ot 780. 2 SYNCOPE AND COLLAPSE 07/19/2018 AZAR RODARTE MD Ot 786. 09 RESPIRATORY ABNORM NEC 07/19/2018 AZAR RODARTE MD Ot E78. 0 PURE HYPERCHOLESTEROLEMIA 07/19/2018 AZAR RODARTE MD Ot I25. 10 ATHSCL HEART DISEASE OF [place] CORONARY 07/19/2018 ОЛЕГ AGUILA Ot E78.2 MIXED HYPERLIPIDEMIA 07/19/2018 ОЛЕГ AGUILA Ot I10 ESSENTIAL (PRIMARY) HYPERTENSION 07/19/2018 ОЛЕГ AGUILA Ot I25.10 ATHSCL HEART DISEASE OF [place] CORONARY 07/19/2018 ОЛЕГ AGUILA Ot 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 07/19/2018 MARIA MACKEY CHEF PASSENGER VESSEL Ot Z12.31 ENCNTR SCREEN MAMMOGRAM FOR MALIGNANT NE 07/19/2018 MARIA MACKEY CHEF PASSENGER VESSEL Ot 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, 07/19/2018 MARIA MACKEY CHEF PASSENGER VESSEL Ot M85.88 OTH DISRD OF BONE DENSITY AND STRUCTURE, 07/19/2018 MARIA MACKEY CHEF PASSENGER VESSEL Ot Z13.820 ENCOUNTER FOR SCREENING FOR OSTEOPOROSIS 07/19/2018 MARIA MACKEY CHEF PASSENGER VESSEL Ot Z78 .0 ASYMPTOMATIC MENOPAUSAL STATE 07/19/2018 MARIA MACKEY CHEF PASSENGER VESSEL Ot K76 .0 FATTY (CHANGE OF) LIVER, NOT ELSEWHERE C 07/19/2018 MARIA MACKEY CHEF PASSENGER VESSEL Ot Z12 .2 ENCNTR SCREEN FOR MALIGNANT NEOPLASM OF 07/19/2018 MARIA MACKEY CHEF PASSENGER VESSEL Ot Z87.891 PERSONAL HISTORY OF NICOTINE DEPENDENCE 07/19/2018 MARIA MACKEY CHEF PASSENGER VESSEL Ot Z95 .1 PRESENCE OF AORTOCORONARY BYPASS GRAFT 07/19/2018 MIKE FORTE, GLENDY Myles Ot Z01.818 ENCOUNTER FOR OTHER PREPROCEDURAL EXAMIN 07/19/2018 GLENDY MCKEON MD Ot Z12.11 ENCOUNTER FOR SCREENING FOR MALIGNANT NE 07/19/2018 AZAR RODARTE MD Ot E78. 5 HYPERLIPIDEMIA, UNSPECIFIED 07/19/2018 AZAR RODARTE MD Ot I10 ESSENTIAL (PRIMARY) HYPERTENSION 07/19/2018 AZAR RODARTE MD Ot I25. 10 ATHSCL HEART DISEASE OF [place] CORONARY 07/19/2018 AZAR RODARTE MD Ot I34. 0 NONRHEUMATIC MITRAL (VALVE) INSUFFICIENC 07/19/2018 AZAR RODARTE MD Ot R07. 9 CHEST PAIN, UNSPECIFIED 07/19/2018 AZAR RODARTE MD Ot E78. 2 MIXED HYPERLIPIDEMIA 07/19/2018 AZAR RODARTE MD Ot I10 ESSENTIAL (PRIMARY) HYPERTENSION 07/19/2018 AZAR RODARTE MD Ot I25. 10 ATHSCL HEART DISEASE OF [place] CORONARY 07/19/2018 AZAR RODARTE MD Ot R07. 9 CHEST PAIN, UNSPECIFIED 07/20/2018 KODI OQUENDO DO Ot E03.9 HYPOTHYROIDISM, UNSPECIFIED 07/20/2018 AZRA SLADE KODI K Ot E11.9 TYPE 2 DIABETES MELLITUS WITHOUT COMPLIC 07/20/2018 AZRA SLADE KODI K Ot E78.2 MIXED HYPERLIPIDEMIA 07/20/2018 AZRA SLADE KODI K Ot I10 ESSENTIAL (PRIMARY) HYPERTENSION 07/20/2018 AZRA SLADE KODI K Ot I25.10 ATHSCL HEART DISEASE OF [place] CORONARY 07/20/2018 AZRA SLADE KODI K Ot I25.2 OLD MYOCARDIAL INFARCTION 07/20/2018 AZRA SLADE KODI K Ot J44.9 CHRONIC OBSTRUCTIVE PULMONARY DISEASE, U 07/20/2018 AZRA SLADE KODI K Ot K21.9 GASTRO-ESOPHAGEAL REFLUX DISEASE WITHOUT 07/20/2018 AZRA SLAED KODI K Ot K44.9 DIAPHRAGMATIC HERNIA WITHOUT OBSTRUCTION 07/20/2018 AZRA SLADE KODI K Ot N20.0 CALCULUS OF KIDNEY 07/20/2018 AZRA SLADE KODI K Ot R11.2 NAUSEA WITH VOMITING, UNSPECIFIED 07/20/2018 AZRA SLADE KODI K Ot 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 07/20/2018 AZRA SLADE KODI K Ot Z79.89 9 OTHER 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 RESEARCH WORKER (CURRENT) DRUG THERAPY 07/20/2018 AZRA SLADE KODI K Ot Z86.73 PRSNL HX OF TIA (TIA), AND CEREB INFRC W 07/20/2018 AZRA SLADE KODI K Ot Z87.89 1 PERSONAL HISTORY OF NICOTINE DEPENDENCE 07/20/2018 AZRA SLADE KODI K Ot Z95.1 PRESENCE OF AORTOCORONARY BYPASS GRAFT 07/20/2018 AZRA SLADE KODI K Ot Z95.5 PRESENCE OF CORONARY ANGIOPLASTY IMPLANT 07/23/2018 MINDA FORTE, OLIVER Ocampo Ot N20.1 CALCULUS OF URETER 07/28/2018 MINDA FORTE, OLIVER Ocampo Ot N20.1 CALCULUS OF URETER 08/12/2018 OLIVER PERLA MD Ot N20.1 CALCULUS OF URETER 08/25/2018 MINDA FORTE, OLIVER Ocampo Ot N20.1 CALCULUS OF URETER 01/14/2019 MARTIN FORTE, BERENICE Art Ot E03. 9 HYPOTHYROIDISM, UNSPECIFIED 01/14/2019 BERENICE SALAZAR MD Ot E11. 9 TYPE 2 DIABETES MELLITUS WITHOUT COMPLIC 01/14/2019 BERENICE SALAZAR MD Ot E78. 00 PURE HYPERCHOLESTEROLEMIA, UNSPECIFIED 01/14/2019 BERENICE SALAZAR MD Ot I10 ESSENTIAL (PRIMARY) HYPERTENSION 01/14/2019 BERENICE SALAZAR MD Ot I25. 10 ATHSCL HEART DISEASE OF [place] CORONARY 01/14/2019 BERENICE SALAZAR MD Ot I25. 2 OLD MYOCARDIAL INFARCTION 01/14/2019 BERENICE SALAZAR MD, Ot J18. 9 PNEUMONIA, UNSPECIFIED ORGANISM 01/14/2019 BERENICE SALAZAR MD Ot J44. 9 CHRONIC OBSTRUCTIVE PULMONARY DISEASE, U 01/14/2019 BERENICE SALAZAR MD Ot K21. 9 GASTRO-ESOPHAGEAL REFLUX DISEASE WITHOUT 01/14/2019 BERENICE SALAZAR MD Ot Z79. 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 49 FAMILY HX OF ISCHEM HEART DIS AND OTH DI 01/14/2019 BERENICE SALAZRA MD Ot Z86. 73 PRSNL HX OF TIA (TIA), AND CEREB INFRC W 01/14/2019 BERENICE SALAZAR MD Ot Z87. 01 PERSONAL HISTORY OF PNEUMONIA (RECURRENT 01/14/2019 BERENICE SALAZAR MD Ot Z87. 19 PERSONAL HISTORY OF OTHER DISEASES OF TH 01/14/2019 BERENICE SALAZAR MD Ot Z87.891 PERSONAL HISTORY OF NICOTINE DEPENDENCE 01/14/2019 BERENICE SALAZAR MD Ot Z88. 2 ALLERGY STATUS TO SULFONAMIDES STATUS 01/14/2019 BERENICE SALAZAR MD Ot Z88. 5 ALLERGY STATUS TO NARCOTIC AGENT STATUS 01/14/2019 BERENICE SALAZAR MD Ot Z88. 6 ALLERGY STATUS TO ANALGESIC AGENT STATUS 01/14/2019 BERENICE SALAZAR MD Ot Z88. 8 ALLERGY STATUS TO OTH DRUG/MEDS/BIOL SUB 01/14/2019 BERENICE SALAZAR MD Ot 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 CERVIX AND UTER 01/14/2019 BERENICE SALZAAR MD Ot Z95. 1 PRESENCE OF AORTOCORONARY BYPASS GRAFT 01/14/2019 BERENICE SALAZAR MD Ot Z95. 5 PRESENCE OF CORONARY ANGIOPLASTY IMPLANT 01/14/2019 MARTIN FORTE, BERENICE Art Ot Z98.890 OTHER SPECIFIED POSTPROCEDURAL STATES 01/14/2019 ASTER FORTE, AZAR Art Ot 397. 0 TRICUSPID VALVE DISEASE 01/14/2019 AZAR RODARTE MD Ot 414. 00 CORON ATHEROSCLER NOS TYPE VESSEL, NATIV 01/14/2019 AZAR RODARTE MD Ot 424. 0 MITRAL VALVE DISORDER 01/14/2019 AZAR RODARTE MD Ot 496 CHR AIRWAY OBSTRUCT NEC 01/14/2019 AZAR RODARTE MD Ot 786. 09 RESPIRATORY ABNORM NEC 01/14/2019 AZAR RODARTE MD Ot 414. 00 CORON ATHEROSCLER NOS TYPE VESSEL, NATIV 01/14/2019 AZAR RODARTE MD Ot 496 CHR AIRWAY OBSTRUCT NEC 01/14/2019 AZAR RODARTE MD Ot 786. 09 RESPIRATORY ABNORM NEC 01/14/2019 MORGAN SALES DO Ot 278. 00 OBESITY, NOS 01/14/2019 MORGAN SALES DO Ot 414. 00 CORON ATHEROSCLER NOS TYPE VESSEL, NATIV 01/14/2019 MORGAN SALES DO Ot 496 CHR AIRWAY OBSTRUCT NEC 01/14/2019 MORGAN SALES DO Ot 780. 54 HYPERSOMNIA, UNSPECIFIED 01/14/2019 MORGNA SALES DO Ot 786. 09 RESPIRATORY ABNORM NEC 01/14/2019 MORGAN SALES DO Ot 799. 51 ATTENTION OR CONCENTRATION DEFICIT 01/14/2019 MORGAN SALES DO Ot 782. 5 CYANOSIS 01/14/2019 MORGAN SALES DO Ot 786. 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 9 HYPERTENSION NOS 01/14/2019 ASTER FORTE, AZAR Art Ot 414. 00 CORON ATHEROSCLER NOS TYPE VESSEL, NATIV 01/14/2019 ASTER FORTE, AZAR Art Ot 780. 2 SYNCOPE AND COLLAPSE 01/14/2019 ASTER FORTE, AZAR Art Ot 786. 09 RESPIRATORY ABNORM NEC 01/14/2019 AZAR RODARTE MD Ot E78. 0 PURE HYPERCHOLESTEROLEMIA 01/14/2019 AZAR RODARTE MD Ot I25. 10 ATHSCL HEART DISEASE OF [place] CORONARY 01/14/2019 ОЛЕГ AGUILA Ot E78.2 MIXED HYPERLIPIDEMIA 01/14/2019 ОЛЕГ AGUILA Ot I10 ESSENTIAL (PRIMARY) HYPERTENSION 01/14/2019 ОЛЕГ AGUILA Ot I25.10 ATHSCL HEART DISEASE OF [place] CORONARY 01/14/2019 ОЛЕГ AGUILA Ot 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 01/14/2019 MARIA MACKEY CHEF PASSENGER VESSEL Ot Z12.31 ENCNTR SCREEN MAMMOGRAM FOR MALIGNANT NE 01/14/2019 MARIA MACKEY CHEF PASSENGER VESSEL Ot 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, 01/14/2019 SHERI MACKEYA Dajuan CHEF PASSENGER VESSEL Ot M85.88 OTH DISRD OF BONE DENSITY AND STRUCTURE, 01/14/2019 MARIA MACKEY CHEF PASSENGER VESSEL Ot Z13.820 ENCOUNTER FOR SCREENING FOR OSTEOPOROSIS 01/14/2019 MARIA MACKEY CHEF PASSENGER VESSEL Ot Z78 .0 ASYMPTOMATIC MENOPAUSAL STATE 01/14/2019 MARIA MACKEY CHEF PASSENGER VESSEL Ot K76 .0 FATTY (CHANGE OF) LIVER, NOT ELSEWHERE C 01/14/2019 MARIA MACKEY CHEF PASSENGER VESSEL Ot Z12 .2 ENCNTR SCREEN FOR MALIGNANT NEOPLASM OF 01/14/2019 MARIA MACKEY CHEF PASSENGER VESSEL Ot Z87.891 PERSONAL HISTORY OF NICOTINE DEPENDENCE 01/14/2019 MARIA MACKEY CHEF PASSENGER VESSEL Ot Z95 .1 PRESENCE OF AORTOCORONARY BYPASS GRAFT 01/14/2019 MIKE FORTE, GLENDY Myles Ot Z01.818 ENCOUNTER FOR OTHER PREPROCEDURAL EXAMIN 01/14/2019 GLENDY MCKEON MD Ot Z12.11 ENCOUNTER FOR SCREENING FOR MALIGNANT NE 01/14/2019 AZAR RODARTE MD Ot E78. 5 HYPERLIPIDEMIA, UNSPECIFIED 01/14/2019 AZAR RODARTE MD Ot I10 ESSENTIAL (PRIMARY) HYPERTENSION 01/14/2019 AZAR RODARTE MD Ot I25. 10 ATHSCL HEART DISEASE OF [place] CORONARY 01/14/2019 AZAR RODARTE MD Ot I34. 0 NONRHEUMATIC MITRAL (VALVE) INSUFFICIENC 01/14/2019 AZAR RODARTE MD Ot R07. 9 CHEST PAIN, UNSPECIFIED 01/14/2019 AZAR RODARTE MD Ot E78. 2 MIXED HYPERLIPIDEMIA 01/14/2019 AZAR RODARTE MD Ot I10 ESSENTIAL (PRIMARY) HYPERTENSION 01/14/2019 AZAR RODARTE MD Ot I25. 10 ATHSCL HEART DISEASE OF [place] CORONARY 01/14/2019 AZAR RODARTE MD Ot R07. 9 CHEST PAIN, UNSPECIFIED 01/14/2019 MINDA FORTE, OLIVER Ocampo Ot N20.1 CALCULUS OF URETER 01/15/2019 BERENICE SALAZAR MD Ot E03. 9 HYPOTHYROIDISM, UNSPECIFIED 01/15/2019 BERENICE SALAZAR MD Ot E11. 9 TYPE 2 DIABETES MELLITUS WITHOUT COMPLIC 01/15/2019 BERENICE SALAZAR MD Ot E78. 00 PURE HYPERCHOLESTEROLEMIA, UNSPECIFIED 01/15/2019 BERENICE SALAZAR MD Ot I10 ESSENTIAL (PRIMARY) HYPERTENSION 01/15/2019 BERENICE SALAZAR MD Ot I25. 10 ATHSCL HEART DISEASE OF [place] CORONARY 01/15/2019 BERENICE SALAZAR MD Ot I25. 2 OLD MYOCARDIAL INFARCTION 01/15/2019 BERENICE SALAZAR MD Ot J18. 9 PNEUMONIA, UNSPECIFIED ORGANISM 01/15/2019 BERENICE SALAZAR MD Ot J44. 9 CHRONIC OBSTRUCTIVE PULMONARY DISEASE, U 01/15/2019 BERENICE SALAZAR MD Ot K21. 9 GASTRO-ESOPHAGEAL REFLUX DISEASE WITHOUT 01/15/2019 BERENICE SALAZAR MD Ot Z79. 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 49 FAMILY HX OF ISCHEM HEART DIS AND OTH DI 01/15/2019 BERENICE SALAZAR MD Ot Z86. 73 PRSNL HX OF TIA (TIA), AND CEREB INFRC W 01/15/2019 BERENICE SALAZAR MD Ot Z87. 01 PERSONAL HISTORY OF PNEUMONIA (RECURRENT 01/15/2019 BERENICE SALAZAR MD Ot Z87. 19 PERSONAL HISTORY OF OTHER DISEASES OF TH 01/15/2019 BERENICE SALAZAR MD Ot Z87.891 PERSONAL HISTORY OF NICOTINE DEPENDENCE 01/15/2019 BERENICE SALAZAR MD Ot Z88. 2 ALLERGY STATUS TO SULFONAMIDES STATUS 01/15/2019 BERENICE SALAZAR MD Ot Z88. 5 ALLERGY STATUS TO NARCOTIC AGENT STATUS 01/15/2019 BERENICE SALAZAR MD Ot Z88. 6 ALLERGY STATUS TO ANALGESIC AGENT STATUS 01/15/2019 BERENICE SALAZAR MD Ot Z88. 8 ALLERGY STATUS TO OTH DRUG/MEDS/BIOL SUB 01/15/2019 BERENICE SALAZAR MD Ot 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 CERVIX AND UTER 01/15/2019 BERENICE SALAZAR MD Ot Z95. 1 PRESENCE OF AORTOCORONARY BYPASS GRAFT 01/15/2019 BERENICE SALAZAR MD Ot Z95. 5 PRESENCE OF CORONARY ANGIOPLASTY IMPLANT 01/15/2019 BERENICE SALAZAR MD Ot Z98.890 OTHER SPECIFIED POSTPROCEDURAL STATES 04/20/2019 MARIA MACKEY CHEF PASSENGER VESSEL Ot 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, 04/20/2019 MRAIA MACKEY CHEF PASSENGER VESSEL Ot M85.88 OTH DISRD OF BONE DENSITY AND STRUCTURE, 04/20/2019 MARIA MACKEY CHEF PASSENGER VESSEL Ot Z12.31 ENCNTR SCREEN MAMMOGRAM FOR MALIGNANT NE 04/20/2019 MARIA MACKEY CHEF PASSENGER VESSEL Ot Z13.820 ENCOUNTER FOR SCREENING FOR OSTEOPOROSIS 04/20/2019 MARIA MACKEY CHEF PASSENGER VESSEL Ot Z78 .0 ASYMPTOMATIC MENOPAUSAL STATE 04/20/2019 MARIA MACKEY CHEF PASSENGER VESSEL Ot 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, 04/20/2019 MARIA MACKEY CHEF PASSENGER VESSEL Ot M85.88 OTH DISRD OF BONE DENSITY AND STRUCTURE, 04/20/2019 BECKYDajuanMARIA CHEF PASSENGER VESSEL Ot Z12.31 ENCNTR SCREEN MAMMOGRAM FOR MALIGNANT NE 04/20/2019 KEY MARIA Graff CHEF PASSENGER VESSEL Ot Z13.820 ENCOUNTER FOR SCREENING FOR OSTEOPOROSIS 04/20/2019 KEY MARIA Graff CHEF PASSENGER VESSEL Ot Z78 .0 ASYMPTOMATIC MENOPAUSAL STATE 01/03/2020 ОЛЕГ AGUILA Ot E78.2 MIXED HYPERLIPIDEMIA 01/03/2020 ОЛЕГ AGUILA Ot I10 ESSENTIAL (PRIMARY) HYPERTENSION 01/03/2020 ОЛЕГ AGUILA Ot I25.10 ATHSCL HEART DISEASE OF [place] CORONARY 01/03/2020 ОЛЕГ AGUILA Ot 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 01/03/2020 KEY MARIA Graff CHEF PASSENGER VESSEL Ot Z12.31 ENCNTR SCREEN MAMMOGRAM FOR MALIGNANT NE 01/03/2020 CHAD FORTE, JAKY Ocampo Ot Z87.891 PERSONAL HISTORY OF NICOTINE DEPENDENCE 01/03/2020 ASTER FORTE, AZAR Art Ot 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 9 HYPERTENSION NOS 01/03/2020 AZAR RODARTE MD Ot 414. 00 CORON ATHEROSCLER NOS TYPE VESSEL, NATIV 01/03/2020 AZAR RODARTE MD Ot 780. 2 SYNCOPE AND COLLAPSE 01/03/2020 AZAR RODARTE MD Ot 786. 09 RESPIRATORY ABNORM NEC 01/03/2020 AZAR RODARTE MD Ot E78. 0 PURE HYPERCHOLESTEROLEMIA 01/03/2020 AZAR RODARTE MD Ot I25. 10 ATHSCL HEART DISEASE OF [place] CORONARY 01/03/2020 ОЛЕГ AGUILA Ot E78.2 MIXED HYPERLIPIDEMIA 01/03/2020 ОЛЕГ AGUILA Ot I10 ESSENTIAL (PRIMARY) HYPERTENSION 01/03/2020 ОЛЕГ AGUILA Ot I25.10 ATHSCL HEART DISEASE OF [place] CORONARY 01/03/2020 ОЛЕГ AGUILA Ot 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 01/03/2020 BECKYL, MARIA Graff CHEF PASSENGER VESSEL Ot Z12.31 ENCNTR SCREEN MAMMOGRAM FOR MALIGNANT NE 01/03/2020 BECKYL, MARIA L CHEF PASSENGER VESSEL Ot 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, 01/03/2020 MADL, MARIA L CHEF PASSENGER VESSEL Ot M85.88 OTH DISRD OF BONE DENSITY AND STRUCTURE, 01/03/2020 BECKYL, MARIA L CHEF PASSENGER VESSEL Ot Z12.31 ENCNTR SCREEN MAMMOGRAM FOR MALIGNANT NE 01/03/2020 BECKYL, MARIA L CHEF PASSENGER VESSEL Ot Z13.820 ENCOUNTER FOR SCREENING FOR OSTEOPOROSIS 01/03/2020 BECKYL, MARIA L CHEF PASSENGER VESSEL Ot Z78 .0 ASYMPTOMATIC MENOPAUSAL STATE 01/03/2020 BECKYL, MARIA L CHEF PASSENGER VESSEL Ot K76 .0 FATTY (CHANGE OF) LIVER, NOT ELSEWHERE C 01/03/2020 BECKYL, MARIA L CHEF PASSENGER VESSEL Ot Z12 .2 ENCNTR SCREEN FOR MALIGNANT NEOPLASM OF 01/03/2020 BECKYDajuanMARIA L CHEF PASSENGER VESSEL Ot Z87.891 PERSONAL HISTORY OF NICOTINE DEPENDENCE 01/03/2020 BECKYL, MARIA L CHEF PASSENGER VESSEL Ot Z95 .1 PRESENCE OF AORTOCORONARY BYPASS GRAFT 01/03/2020 MIKE FORTE, GLENDY Myles Ot Z01.818 ENCOUNTER FOR OTHER PREPROCEDURAL EXAMIN 01/03/2020 MIKE FORTE, GLENDY Myles Ot Z12.11 ENCOUNTER FOR SCREENING FOR MALIGNANT NE 01/03/2020 AZAR RODARTE MD Ot E78. 5 HYPERLIPIDEMIA, UNSPECIFIED 01/03/2020 AZAR RODARTE MD Ot I10 ESSENTIAL (PRIMARY) HYPERTENSION 01/03/2020 AZAR RODARTE MD Ot I25. 10 ATHSCL HEART DISEASE OF [place] CORONARY 01/03/2020 AZAR RODARTE MD Ot I34. 0 NONRHEUMATIC MITRAL (VALVE) INSUFFICIENC 01/03/2020 AZAR RODARTE MD Ot R07. 9 CHEST PAIN, UNSPECIFIED 01/03/2020 AZAR RODARTE MD Ot E78. 2 MIXED HYPERLIPIDEMIA 01/03/2020 AZAR RODARTE MD Ot I10 ESSENTIAL (PRIMARY) HYPERTENSION 01/03/2020 AZAR RODARTE MD Ot I25. 10 ATHSCL HEART DISEASE OF [place] CORONARY 01/03/2020 AZAR RODARTE MD Ot R07. 9 CHEST PAIN, UNSPECIFIED 01/03/2020 MINDA FORTE, OLIVER Ocampo Ot N20.1 CALCULUS OF URETER 01/03/2020 CHAD FORTE, JAKY Ocampo Ot Z87.891 PERSONAL HISTORY OF NICOTINE DEPENDENCE 01/05/2020 DYLAN OLIVERA MD Ot E03 .9 HYPOTHYROIDISM, UNSPECIFIED 01/05/2020 DYLAN OLIVERA MD Ot E11 .9 TYPE 2 DIABETES MELLITUS WITHOUT COMPLIC 01/05/2020 DYLAN OLIVERA MD Ot E78.00 PURE HYPERCHOLESTEROLEMIA, UNSPECIFIED 01/05/2020 DYLAN OLIVERA MD Ot E78 .2 MIXED HYPERLIPIDEMIA 01/05/2020 DYLAN OLIVERA MD Ot G89.29 OTHER CHRONIC PAIN 01/05/2020 DYLAN OLIVERA MD Ot I10 ESSENTIAL (PRIMARY) HYPERTENSION 01/05/2020 DYLAN OLIVERA MD Ot I25.10 ATHSCL HEART DISEASE OF [place] CORONARY 01/05/2020 DYLAN OLIVERA MD Ot 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 01/05/2020 DYLAN OLIVERA MD Ot J10 .1 FLU DUE TO OTH IDENT INFLUENZA VIRUS W O 01/05/2020 DYLAN OLIVERA MD Ot J44 .9 CHRONIC OBSTRUCTIVE PULMONARY DISEASE, U 01/05/2020 DYLAN OLIVERA MD Ot K21 .9 GASTRO-ESOPHAGEAL REFLUX DISEASE WITHOUT 01/05/2020 DYLAN OLIVERA MD Ot M19.90 UNSPECIFIED OSTEOARTHRITIS, UNSPECIFIED 01/05/2020 DYLAN OLIVERA MD Ot M54 .9 DORSALGIA, UNSPECIFIED 01/05/2020 DYLAN OLIVERA MD Ot Z79.02 NURSING HOME (CURRENT) USE OF ANTITHROMBOTI 01/05/2020 DYLAN OLIVERA MD Ot Z79.82 NURSING HOME (CURRENT) USE OF ASPIRIN 01/05/2020 DYLAN OLIVERA MD, Ot Z79.891 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 OF OPIATE ANALGE 01/05/2020 DYLAN OLIVERA MD, Ot Z82.61 FAMILY HISTORY OF ARTHRITIS 01/05/2020 DYLAN OLIVERA MD, Ot Z87.891 PERSONAL HISTORY OF NICOTINE DEPENDENCE 01/05/2020 DYLAN OLIVERA MD, Ot Z88 .5 ALLERGY STATUS TO NARCOTIC AGENT STATUS 01/05/2020 DYLAN OLIVERA MD, Ot Z88 .6 ALLERGY STATUS TO ANALGESIC AGENT STATUS 01/05/2020 DYLAN OLIVERA MD, Ot 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 CERVIX AND UTER 01/05/2020 DYLAN OLIVERA MD, Ot 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 Results Test Result Range Complete blood count (CBC) with automate d white blood cell (WBC) differential - 06/18/16 16:05 Blood leukocytes automated count (number/volume) 7.2 10*3/uL 4.3-11.0 Blood erythrocytes automated count (number/volume) 4.08 10*6/uL 4.35-5.85 Venous blood hemoglobin measurement (mass/volume) 12.2 g/dL 11.5-16.0 Blood hematocrit (volume fraction) 37 % 35-52 Automated erythrocyte mean corpuscular volume 91 [ foz_us] 80-99 Automated erythrocyte mean corpuscular h emoglobin (mass per erythrocyte) 30 pg 25-34 Automated erythrocyte mean corpuscular h emoglobin concentration measurement (mass/volume) 33 g/dL 32-36 Automated erythrocyte distribution width ratio 13. 4 % 10.0- 14.5 Automated blood platelet count (count/volume) 301 10*3/uL [...] 10*3 1.0-4.0 Blood monocytes automated count (number/volume) 0. 6 10*3 0.0-1.0 Automated eosinophil count 0.1 10*3/uL 0 .0-0.3 Automated blood basophil count (count/volume) 0.0 10*3/uL 0.0-0.1 PT panel in platelet poor plasma by coag ulation assay - 06/18/16 16:05 Prothrombin time (PT) in platelet poor plasma by coagu lation assay 13.0 s 12.2-14.7 INR in platelet poor plasma or blood by coagulation as say 1.0 0.8-1.4 Activated partial thromboplastin time (a PTT) in platelet poor plasma bycoagulation assay - 06/18/16 16:05 Activated partial thromboplastin time (a PTT) in platelet poor plasma bycoagulation assay 26 s 24-35 Fibrin D-dimer FEU measurement in platel et poor plasma (mass/volume) - 06/18/16 16:05 Fibrin D-dimer FEU measurement in platelet [...] 5-14 Serum or plasma urea nitrogen measurement (mass/volume ) 17 mg/dL 7-18 Serum or plasma creatinine measurement (mass/volume) 0.75 mg/dL 0.60-1.30 Serum or plasma urea nitrogen/creatinine mass ratio 23 NRG Serum or plasma creatinine measurement w ith calculation of estimated glomerular filtration rate > NRG Serum or plasma glucose measurement (mass/volume) 175 mg/dL 70-105 Serum or plasma calcium measurement (mass/volume) 9.5 mg/dL 8.5-10.1 Serum or plasma total bilirubin measurement (mass/volu me) 0.3 mg/dL 0.1-1.0 Serum or plasma alkaline phosphatase albina surement (enzymatic activity/volume) 60 U/L 40-136 Serum or plasma aspartate aminotransfera se measurement (enzymatic activity/volume) 17 U/L 5-34 Serum or plasma alanine aminotransferase measurement (enzymatic activity/volume) 23 U/L 0-55 Serum or plasma protein measurement (mass/volume) 6.5 g/dL 6.4-8.2 Serum or plasma albumin measurement (mass/volume) 4.0 g/dL 3.2-4.5 Magnesium - 06/18/16 16:05 Magnesium 1.8 mg/dL 1.8-2.4 Serum or plasma troponin i.cardiac measu rement (mass/volume) - 06/18/16 16:05 Serum or plasma troponin i.cardiac measurement (mass/v olume) < ng/mL <0.30 Myoglobin, serum - 06/18/16 16:05 Myoglobin, serum 15.8 ng/mL 10.0-92.0 Capillary blood glucose measurement by g lucometer (mass/volume) - 06/18/16 19:51 Capillary blood glucose measurement by glucometer (mas s/volume) 86 mg/dL 70-110 Serum or plasma troponin i.cardiac measu rement (mass/volume) - 06/18/16 21:56 Serum or plasma troponin i.cardiac measurement (mass/v olume) < ng/mL <0.30 Complete blood count (CBC) with automate d white blood cell (WBC) differential - 06/19/16 04:25 Blood leukocytes automated count (number/volume) 7.1 10*3/uL 4.3-11.0 Blood erythrocytes automated count (number/volume) 3.87 10*6/uL 4.35-5.85 Venous blood hemoglobin measurement (mass/volume) 11.6 g/dL 11.5-16.0 Blood hematocrit (volume fraction) 35 % 35-52 Automated erythrocyte mean corpuscular volume 91 [ foz_us] 80-99 Automated erythrocyte mean corpuscular h emoglobin (mass per erythrocyte) 30 pg 25-34 Automated erythrocyte mean corpuscular h emoglobin concentration measurement (mass/volume) 33 g/dL 32-36 Automated erythrocyte distribution width ratio 13. 5 % 10.0- 14.5 Automated blood platelet count (count/volume) 263 10*3/uL [...] 10*3 1.0-4.0 Blood monocytes automated count (number/volume) 0. 7 10*3 0.0-1.0 Automated eosinophil count 0.1 10*3/uL 0 .0-0.3 Automated blood basophil count (count/volume) 0.1 10*3/uL 0.0-0.1 Comprehensive metabolic panel - 06/19/16 04:25 Serum or plasma sodium measurement (moles/volume) 142 mmol/L 135-145 Serum or plasma potassium measurement (moles/volume) 3.8 mmol/L 3.6-5.0 Serum or plasma chloride measurement (moles/volume) 108 mmol/L 98-107 Carbon dioxide 22 mmol/L 21-32 Serum or plasma anion gap determination (moles/volume) 12 mmol/L 5-14 Serum or plasma urea nitrogen measurement (mass/volume ) 19 mg/dL 7-18 Serum or plasma creatinine measurement (mass/volume) 0.69 mg/dL 0.60-1.30 Serum or plasma urea nitrogen/creatinine mass ratio 28 NRG Serum or plasma creatinine measurement w ith calculation of estimated glomerular filtration rate > NRG Serum or plasma glucose measurement (mass/volume) 116 mg/dL 70-105 Serum or plasma calcium measurement (mass/volume) 9.2 mg/dL 8.5-10.1 Serum or plasma total bilirubin measurement (mass/volu me) 0.3 mg/dL 0.1-1.0 Serum or plasma alkaline phosphatase albina surement (enzymatic activity/volume) 55 U/L 40-136 Serum or plasma aspartate aminotransfera se measurement (enzymatic activity/volume) 16 U/L 5-34 Serum or plasma alanine aminotransferase measurement (enzymatic activity/volume) 23 U/L 0-55 Serum or plasma protein measurement (mass/volume) 6.1 g/dL 6.4-8.2 Serum or plasma albumin measurement (mass/volume) 3.8 g/dL 3.2-4.5 Lipid 1996 panel - 06/19/16 04:25 Serum or plasma triglyceride measurement (mass/volume) 183 mg/dL <150 Serum or plasma cholesterol measurement (mass/volume) 169 mg/dL < 200 Serum or plasma cholesterol in HDL measurement (mass/v olume) 39 mg/dL 40-60 Cholesterol in LDL [mass/volume] in serum or plasma by direct assay 111 mg/dL 1-129 Serum or plasma cholesterol in VLDL measurement (mass/ volume) 37 mg/dL 5-40 Capillary blood glucose measurement by g lucometer (mass/volume) - 06/19/16 11:17 Capillary blood glucose measurement by glucometer (mas s/volume) 116 mg/dL 70-110 Capillary blood glucose measurement by g lucometer (mass/volume) - 06/19/16 15:32 Capillary blood glucose measurement by glucometer (mas s/volume) 89 mg/dL 70-110 Capillary blood glucose measurement by g lucometer (mass/volume) - 06/19/16 22:27 Capillary blood glucose measurement by glucometer (mas s/volume) 173 mg/dL 70-110 Capillary blood glucose measurement by g lucometer (mass/volume) - 06/20/16 06:05 Capillary blood glucose measurement by glucometer (mas s/volume) 117 mg/dL 70-110 Capillary blood glucose measurement by g lucometer (mass/volume) - 06/20/16 09:45 Capillary blood glucose measurement by glucometer (mas s/volume) 181 mg/dL 70-110 CMP - 07/11/17 09:10 Glucose, Serum 160 mg/dL 65-99 BUN 18 mg/dL 8-27 Creatinine, Serum 0.60 mg/dL 0.57-1.00 eGFR If NonAfricn Am 91 mL/min/1.73 >59 eGFR If Africn Am 105 mL/min/1.73 >5 9 BUN/Creatinine Ratio 30 12-28 Sodium, Serum 140 [...] IU/L 0-40 ALT (SGPT) 16 IU/L 0-32 TSH - 08/06/17 17:27 TSH 2.410 uIU/mL 0.450-4.500 CBC - 11/19/17 16:27 WHITE BLOOD CELL COUNT 9.7 Thousand/uL 3 .8-10.8 RED BLOOD CELL COUNT 4.52 Million/uL 3.8 0-5.10 HEMOGLOBIN 12.5 g/dL 11.7-15.5 HEMATOCRIT 38.9 % 35.0-45.0 MCV 86.1 fL 80.0-100.0 MCH 27.7 pg 27.0-33.0 MCHC 32.1 g/dL 32.0-36.0 RDW 13.3 % 11.0-15.0 PLATELET COUNT 299 Thousand/uL 140-400 MPV 10.2 fL 7.5-12.5 ABSOLUTE NEUTROPHILS 6518 cells/uL 1500- 7800 ABSOLUTE LYMPHOCYTES 2289 cells/uL 850-3 900 ABSOLUTE MONOCYTES 708 cells/uL 200-950 ABSOLUTE EOSINOPHILS 136 cells/uL 15-500 ABSOLUTE BASOPHILS 49 cells/uL 0-200 NEUTROPHILS 67.2 % NRG LYMPHOCYTES 23.6 % NRG MONOCYTES 7.3 % NRG EOSINOPHILS 1.4 % NRG BASOPHILS 0.5 % NRG BNP - 11/19/17 16:27 B TYPE NATRIURETIC PEPTIDE (BNP) 57 pg/mL <100 Influenza virus A and B antigen detectio n - 12/20/17 20:37 CALL POSITIVES (F1 HELP) [facility]U RESULT POSITIVE FOR INFLUENZA B ANT IGEN, NEG FOR A ANTIGEN, BY [facility] Complete blood count (CBC) with automate d white blood cell (WBC) differential - 12/20/17 20:44 Blood leukocytes automated count (number/volume) 8.4 10*3/uL 4.3-11.0 Blood erythrocytes automated count (number/volume) 4.55 10*6/uL 4.35-5.85 Venous blood hemoglobin measurement (mass/volume) 12.8 g/dL 11.5-16.0 Blood hematocrit (volume fraction) 39 % 35-52 Automated erythrocyte mean corpuscular volume 85 [ foz_us] 80-99 Automated erythrocyte mean corpuscular h emoglobin (mass per erythrocyte) 28 pg 25-34 Automated erythrocyte mean corpuscular h emoglobin concentration measurement (mass/volume) 33 g/dL 32-36 Automated erythrocyte distribution width ratio 15. 5 % 10.0- 14.5 Automated blood platelet count (count/volume) 264 10*3/uL [...] 10*3 1.0-4.0 Blood monocytes automated count (number/volume) 1. 0 10*3 0.0-1.0 Automated eosinophil count 0.1 10*3/uL 0 .0-0.3 Automated blood basophil count (count/volume) 0.1 10*3/uL 0.0-0.1 Blood lactic acid measurement (moles/vol ume) - 12/20/17 20:44 Blood lactic acid measurement [...] 5-14 Serum or plasma urea nitrogen measurement (mass/volume ) 7 mg/dL 7-18 Serum or plasma creatinine measurement (mass/volume) 0.62 mg/dL 0.60-1.30 Serum or plasma urea nitrogen/creatinine mass ratio 11 NRG Serum or plasma creatinine measurement w ith calculation of estimated glomerular filtration rate > NRG Serum or plasma glucose measurement (mass/volume) 113 mg/dL 70-105 Serum or plasma calcium measurement (mass/volume) 9.0 mg/dL 8.5-10.1 Serum or plasma total bilirubin measurement (mass/volu me) 0.4 mg/dL 0.1-1.0 Serum or plasma alkaline phosphatase albina surement (enzymatic activity/volume) 53 U/L 40-136 Serum or plasma aspartate aminotransfera se measurement (enzymatic activity/volume) 20 U/L 5-34 Serum or plasma alanine aminotransferase measurement (enzymatic activity/volume) 16 U/L 0-55 Serum or plasma protein measurement (mass/volume) 7.0 g/dL 6.4-8.2 Serum or plasma albumin measurement (mass/volume) 3.9 g/dL 3.2-4.5 Bacterial blood culture - 12/20/17 20:44 Bacterial blood culture NG NRG Bacterial blood culture - 12/20/17 21:05 Bacterial blood culture NG NRG Complete urinalysis with reflex to cultu re - 12/20/17 22:50 Urine color determination YELLOW NRG Urine clarity determination CLEAR NR G Urine pH measurement by test strip 7 5-9 Specific gravity of urine by test strip 1.010 1.016-1.022 Urine protein assay by test strip, semi-quantitative NEGATIVE NEGATIVE Urine glucose detection by automated test strip NE GATIVE NEGATIVE Erythrocytes detection in urine sediment by light micr oscopy NEGATIVE NEGATIVE Urine ketones detection by automated test strip NE GATIVE NEGATIVE Urine nitrite detection by test strip NEGATIVE NEGATIVE Urine total bilirubin detection by test strip NEGA TIVE NEGATIVE Urine urobilinogen measurement by automated test strip (mass/volume) NORMAL NORMAL Urine leukocyte esterase detection by dipstick 2+ NEGATIVE Automated urine sediment erythrocyte cou nt by microscopy (number/high power field) RARE NRG Automated urine sediment leukocyte count by microscopy (number/high power field) [HPF] NRG Bacteria detection in urine sediment by light microsco py TRACE NRG Squamous epithelial cells detection in u rine sediment by light microscopy 0-2 NRG Crystals detection in urine sediment by light microsco py NONE NRG Casts detection in urine sediment by light microscopy NONE NRG Mucus detection in urine sediment by light microscopy NEGATIVE NRG Complete urinalysis with reflex to culture YES NRG Bacterial urine culture - 12/20/17 22:50 Bacterial urine culture [id number] NRG COLONY COUNT 10,000/ML - 100,000/ML NRG FTX;REPORTABLE SENSITIVITY [place]PORTED [place] 0848, 2 NR Bacterial susceptibility panel - 8 22:50 Gentamicin susceptibility test by minimum inhibitory c oncentration S NRG Vancomycin susceptibility test by minimum inhibitory c oncentration 1 NRG Levofloxacin susceptibility test by minimum inhibitory concentration 0.5 NRG Tetracycline susceptibility test by minimum inhibitory concentration >= NRG Ampicillin susceptibility test by minimum inhibitory c oncentration <= NRG Nitrofurantoin susceptibility test by mi nimum inhibitory concentration <= NRG Linezolid susceptibility test by minimum inhibitory co ncentration 2 NRG Capillary blood glucose measurement by g lucometer (mass/volume) - 12/21/17 05:03 Capillary blood glucose measurement by glucometer (mas s/volume) 200 mg/dL 70-110 Complete blood count (CBC) with automate d white blood cell (WBC) differential - 12/21/17 05:27 Blood leukocytes automated count (number/volume) 7.8 10*3/uL 4.3-11.0 Blood erythrocytes automated count (number/volume) 4.55 10*6/uL 4.35-5.85 Venous blood hemoglobin measurement (mass/volume) 12.9 g/dL 11.5-16.0 Blood hematocrit (volume fraction) 39 % 35-52 Automated erythrocyte mean corpuscular volume 86 [ foz_us] 80-99 Automated erythrocyte mean corpuscular h emoglobin (mass per erythrocyte) 28 pg 25-34 Automated erythrocyte mean corpuscular h emoglobin concentration measurement (mass/volume) 33 g/dL 32-36 Automated erythrocyte distribution width ratio 15. 5 % 10.0- 14.5 Automated blood platelet count (count/volume) 254 10*3/uL [...] 10*3 1.0-4.0 Blood monocytes automated count (number/volume) 0. 4 10*3 0.0-1.0 Automated eosinophil count 0.0 10*3/uL 0 .0-0.3 Automated blood basophil count (count/volume) 0.0 10*3/uL 0.0-0.1 Comprehensive metabolic panel - 12/21/17 05:27 Serum or plasma sodium measurement (moles/volume) 141 mmol/L 135-145 Serum or plasma potassium measurement (moles/volume) 3.3 mmol/L 3.6-5.0 Serum or plasma chloride measurement (moles/volume) 106 mmol/L 98-107 Carbon dioxide 24 mmol/L 21-32 Serum or plasma anion gap determination (moles/volume) 11 mmol/L 5-14 Serum or plasma urea nitrogen measurement (mass/volume ) 7 mg/dL 7-18 Serum or plasma creatinine measurement (mass/volume) 0.64 mg/dL 0.60-1.30 Serum or plasma urea nitrogen/creatinine mass ratio 11 NRG Serum or plasma creatinine measurement w ith calculation of estimated glomerular filtration rate > NRG Serum or plasma glucose measurement (mass/volume) 183 mg/dL 70-105 Serum or plasma calcium measurement (mass/volume) 9.3 mg/dL 8.5-10.1 Serum or plasma total bilirubin measurement (mass/volu me) 0.4 mg/dL 0.1-1.0 Serum or plasma alkaline phosphatase albina surement (enzymatic activity/volume) 55 U/L 40-136 Serum or plasma aspartate aminotransfera se measurement (enzymatic activity/volume) 18 U/L 5-34 Serum or plasma alanine aminotransferase measurement (enzymatic activity/volume) 17 U/L 0-55 Serum or plasma protein measurement (mass/volume) 7.0 g/dL 6.4-8.2 Serum or plasma albumin measurement (mass/volume) 4.0 g/dL 3.2-4.5 Capillary blood glucose measurement by g lucometer (mass/volume) - 12/21/17 11:06 Capillary blood glucose measurement by glucometer (mas s/volume) 224 mg/dL 70-110 Capillary blood glucose measurement by g lucometer (mass/volume) - 12/21/17 15:54 Capillary blood glucose measurement by glucometer (mas s/volume) 288 mg/dL 70-110 Capillary blood glucose measurement by g lucometer (mass/volume) - 12/21/17 20:13 Capillary blood glucose measurement by glucometer (mas s/volume) 287 mg/dL 70-110 Capillary blood glucose measurement by g lucometer (mass/volume) - 12/22/17 05:10 Capillary blood glucose measurement by glucometer (mas s/volume) 245 mg/dL 70-110 Complete blood count (CBC) with automate d white blood cell (WBC) differential - 12/22/17 05:52 Blood leukocytes automated count (number/volume) 11.7 10*3/uL 4.3-11.0 Blood erythrocytes automated count (number/volume) 3.99 10*6/uL 4.35-5.85 Venous blood hemoglobin measurement (mass/volume) 11.4 g/dL 11.5-16.0 Blood hematocrit (volume fraction) 34 % 35-52 Automated erythrocyte mean corpuscular volume 86 [ foz_us] 80-99 Automated erythrocyte mean corpuscular h emoglobin (mass per erythrocyte) 29 pg 25-34 Automated erythrocyte mean corpuscular h emoglobin concentration measurement (mass/volume) 33 g/dL 32-36 Automated erythrocyte distribution width ratio 15. 5 % 10.0- 14.5 Automated blood platelet count (count/volume) 268 10*3/uL [...] 10*3 1.0-4.0 Blood monocytes automated count (number/volume) 1. 0 10*3 0.0-1.0 Automated eosinophil count 0.0 10*3/uL 0 .0-0.3 Automated blood basophil count (count/volume) 0.0 10*3/uL 0.0-0.1 Comprehensive metabolic panel - 12/22/17 05:52 Serum or plasma sodium measurement (moles/volume) 141 mmol/L 135-145 Serum or plasma potassium measurement (moles/volume) 3.4 mmol/L 3.6-5.0 Serum or plasma chloride measurement (moles/volume) 110 mmol/L 98-107 Carbon dioxide 21 mmol/L 21-32 Serum or plasma anion gap determination (moles/volume) 10 mmol/L 5-14 Serum or plasma urea nitrogen measurement (mass/volume ) 15 mg/dL 7-18 Serum or plasma creatinine measurement (mass/volume) 0.64 mg/dL 0.60-1.30 Serum or plasma urea nitrogen/creatinine mass ratio 23 NRG Serum or plasma creatinine measurement w ith calculation of estimated glomerular filtration rate > NRG Serum or plasma glucose measurement (mass/volume) 250 mg/dL 70-105 Serum or plasma calcium measurement (mass/volume) 9.0 mg/dL 8.5-10.1 Serum or plasma total bilirubin measurement (mass/volu me) 0.2 mg/dL 0.1-1.0 Serum or plasma alkaline phosphatase albina surement (enzymatic activity/volume) 48 U/L 40-136 Serum or plasma aspartate aminotransfera se measurement (enzymatic activity/volume) 12 U/L 5-34 Serum or plasma alanine aminotransferase measurement (enzymatic activity/volume) 12 U/L 0-55 Serum or plasma protein measurement (mass/volume) 5.8 g/dL 6.4-8.2 Serum or plasma albumin measurement (mass/volume) 3.5 g/dL 3.2-4.5 THYROID STIMULATING HORMONE - 12/22/17 0 5:52 THYROID STIMULATING HORMONE 0.24 u[iU]/mL 0.35-4.94 Hemoglobin A1c - 12/22/17 05:52 Blood hemoglobin A1C measurement (mass/volume) 6.6 % 4.0-5.6 MEAN BLOOD GLUCOSE 143 % <=126 Capillary blood glucose measurement by g lucometer (mass/volume) - 12/22/17 10:53 Capillary blood glucose measurement by glucometer (mas s/volume) 222 mg/dL 70-110 Capillary blood glucose measurement by g lucometer (mass/volume) - 12/22/17 16:01 Capillary blood glucose measurement by glucometer (mas s/volume) 189 mg/dL 70-110 Capillary blood glucose measurement by g lucometer (mass/volume) - 12/22/17 20:47 Capillary blood glucose measurement by glucometer (mas s/volume) 233 mg/dL 70-110 Capillary blood glucose measurement by g lucometer (mass/volume) - 12/23/17 05:16 Capillary blood glucose measurement by glucometer (mas s/volume) 228 mg/dL 70-110 Complete blood count (CBC) with automate d white blood cell (WBC) differential - 12/23/17 06:18 Blood leukocytes automated count (number/volume) 7.8 10*3/uL 4.3-11.0 Blood erythrocytes automated count (number/volume) 4.09 10*6/uL 4.35-5.85 Venous blood hemoglobin measurement (mass/volume) 11.7 g/dL 11.5-16.0 Blood hematocrit (volume fraction) 36 % 35-52 Automated erythrocyte mean corpuscular volume 88 [ foz_us] 80-99 Automated erythrocyte mean corpuscular h emoglobin (mass per erythrocyte) 29 pg 25-34 Automated erythrocyte mean corpuscular h emoglobin concentration measurement (mass/volume) 33 g/dL 32-36 Automated erythrocyte distribution width ratio 16. 2 % 10.0- 14.5 Automated blood platelet count (count/volume) 186 10*3/uL [...] 10*3 1.0-4.0 Blood monocytes automated count (number/volume) 0. 4 10*3 0.0-1.0 Automated eosinophil count 0.0 10*3/uL 0 .0-0.3 Automated blood basophil count (count/volume) 0.0 10*3/uL 0.0-0.1 Whole blood basic metabolic panel - 12/05 06:18 Serum or plasma sodium measurement (moles/volume) 139 mmol/L 135-145 Carbon dioxide 19 mmol/L 21-32 Serum or plasma anion gap determination (moles/volume) 9 mmol/L 5-14 Serum or plasma urea nitrogen measurement (mass/volume ) 17 mg/dL 7-18 Serum or plasma creatinine measurement (mass/volume) 0.67 mg/dL 0.60-1.30 Serum or plasma urea nitrogen/creatinine mass ratio 25 NRG Serum or plasma creatinine measurement w ith calculation of estimated glomerular filtration rate > NRG Serum or plasma glucose measurement (mass/volume) 248 mg/dL 70-105 Serum or plasma calcium measurement (mass/volume) 8.3 mg/dL 8.5-10.1 Whole blood basic metabolic panel - 12/05 07:10 Serum or plasma sodium measurement (moles/volume) 140 mmol/L 135-145 Serum or plasma potassium measurement (moles/volume) 4.4 mmol/L 3.6-5.0 Serum or plasma chloride measurement (moles/volume) 111 mmol/L 98-107 Carbon dioxide 19 mmol/L 21-32 Serum or plasma anion gap determination (moles/volume) 10 mmol/L 5-14 Serum or plasma urea nitrogen measurement (mass/volume ) 17 mg/dL 7-18 Serum or plasma creatinine measurement (mass/volume) 0.64 mg/dL 0.60-1.30 Serum or plasma urea nitrogen/creatinine mass ratio 27 NRG Serum or plasma creatinine measurement w ith calculation of estimated glomerular filtration rate > NRG Serum or plasma glucose measurement (mass/volume) 243 mg/dL 70-105 Serum or plasma calcium measurement (mass/volume) 8.6 mg/dL 8.5-10.1 Capillary blood glucose measurement by g lucometer (mass/volume) - 12/23/17 10:45 Capillary blood glucose measurement by glucometer (mas s/volume) 276 mg/dL 70-110 Capillary blood glucose measurement by g lucometer (mass/volume) - 12/23/17 16:05 Capillary blood glucose measurement by glucometer (mas s/volume) 294 mg/dL 70-110 Capillary blood glucose measurement by g lucometer (mass/volume) - 12/23/17 21:20 Capillary blood glucose measurement by glucometer (mas s/volume) 221 mg/dL 70-110 Capillary blood glucose measurement by g lucometer (mass/volume) - 12/24/17 05:47 Capillary blood glucose measurement by glucometer (mas s/volume) 161 mg/dL 70-110 Capillary blood glucose measurement by g lucometer (mass/volume) - 12/24/17 11:05 Capillary blood glucose measurement by glucometer (mas s/volume) 303 mg/dL 70-110 Capillary blood glucose measurement by g lucometer (mass/volume) - 12/24/17 16:07 Capillary blood glucose measurement by glucometer (mas s/volume) 218 mg/dL 70-110 Complete blood count (CBC) with automate d white blood cell (WBC) differential - 01/03/18 15:35 Blood leukocytes automated count (number/volume) 9.5 10*3/uL 4.3-11.0 Blood erythrocytes automated count (number/volume) 4.25 10*6/uL 4.35-5.85 Venous blood hemoglobin measurement (mass/volume) 12.2 g/dL 11.5-16.0 Blood hematocrit (volume fraction) 37 % 35-52 Automated erythrocyte mean corpuscular volume 86 [ foz_us] 80-99 Automated erythrocyte mean corpuscular h emoglobin (mass per erythrocyte) 29 pg 25-34 Automated erythrocyte mean corpuscular h emoglobin concentration measurement (mass/volume) 33 g/dL 32-36 Automated erythrocyte distribution width ratio 15. 3 % 10.0- 14.5 Automated blood platelet count (count/volume) 305 10*3/uL [...] 10*3 1.0-4.0 Blood monocytes automated count (number/volume) 0. 7 10*3 0.0-1.0 Automated eosinophil count 0.1 10*3/uL 0 .0-0.3 Automated blood basophil count (count/volume) 0.1 10*3/uL 0.0-0.1 Comprehensive metabolic panel - 01/03/18 15:35 Serum or plasma sodium measurement (moles/volume) 139 mmol/L 135-145 Serum or plasma potassium measurement (moles/volume) 3.3 mmol/L 3.6-5.0 Serum or plasma chloride measurement (moles/volume) 106 mmol/L 98-107 Carbon dioxide 22 mmol/L 21-32 Serum or plasma anion gap determination (moles/volume) 11 mmol/L 5-14 Serum or plasma urea nitrogen measurement (mass/volume ) 15 mg/dL 7-18 Serum or plasma creatinine measurement (mass/volume) 0.74 mg/dL 0.60-1.30 Serum or plasma urea nitrogen/creatinine mass ratio 20 NRG Serum or plasma creatinine measurement w ith calculation of estimated glomerular filtration rate > NRG Serum or plasma glucose measurement (mass/volume) 253 mg/dL 70-105 Serum or plasma calcium measurement (mass/volume) 9.3 mg/dL 8.5-10.1 Serum or plasma total bilirubin measurement (mass/volu me) 0.3 mg/dL 0.1-1.0 Serum or plasma alkaline phosphatase albina surement (enzymatic activity/volume) 49 U/L 40-136 Serum or plasma aspartate aminotransfera se measurement (enzymatic activity/volume) 14 U/L 5-34 Serum or plasma alanine aminotransferase measurement (enzymatic activity/volume) 17 U/L 0-55 Serum or plasma protein measurement (mass/volume) 6.7 g/dL 6.4-8.2 Serum or plasma albumin measurement (mass/volume) 3.9 g/dL 3.2-4.5 Serum or plasma troponin i.cardiac measu rement (mass/volume) - 01/03/18 15:35 Serum or plasma troponin i.cardiac measurement (mass/v olume) < ng/mL <0.30 Serum or plasma troponin i.cardiac measu rement (mass/volume) - 01/03/18 21:03 Serum or plasma troponin i.cardiac measurement (mass/v olume) < ng/mL <0.30 Complete blood count (CBC) with automate d white blood cell (WBC) differential - 01/04/18 03:15 Blood leukocytes automated count (number/volume) 7.8 10*3/uL 4.3-11.0 Blood erythrocytes automated count (number/volume) 4.34 10*6/uL 4.35-5.85 Venous blood hemoglobin measurement (mass/volume) 12.3 g/dL 11.5-16.0 Blood hematocrit (volume fraction) 38 % 35-52 Automated erythrocyte mean corpuscular volume 86 [ foz_us] 80-99 Automated erythrocyte mean corpuscular h emoglobin (mass per erythrocyte) 28 pg 25-34 Automated erythrocyte mean corpuscular h emoglobin concentration measurement (mass/volume) 33 g/dL 32-36 Automated erythrocyte distribution width ratio 15. 6 % 10.0- 14.5 Automated blood platelet count (count/volume) 291 10*3/uL [...] 10*3 1.0-4.0 Blood monocytes automated count (number/volume) 0. 6 10*3 0.0-1.0 Automated eosinophil count 0.1 10*3/uL 0 .0-0.3 Automated blood basophil count (count/volume) 0.0 10*3/uL 0.0-0.1 Comprehensive metabolic panel - 01/04/18 03:15 Serum or plasma sodium measurement (moles/volume) 142 mmol/L 135-145 Serum or plasma potassium measurement (moles/volume) 3.4 mmol/L 3.6-5.0 Serum or plasma chloride measurement (moles/volume) 109 mmol/L 98-107 Carbon dioxide 20 mmol/L 21-32 Serum or plasma anion gap determination (moles/volume) 13 mmol/L 5-14 Serum or plasma urea nitrogen measurement (mass/volume ) 16 mg/dL 7-18 Serum or plasma creatinine measurement (mass/volume) 0.66 mg/dL 0.60-1.30 Serum or plasma urea nitrogen/creatinine mass ratio 24 NRG Serum or plasma creatinine measurement w ith calculation of estimated glomerular filtration rate > NRG Serum or plasma glucose measurement (mass/volume) 129 mg/dL 70-105 Serum or plasma calcium measurement (mass/volume) 8.9 mg/dL 8.5-10.1 Serum or plasma total bilirubin measurement (mass/volu me) 0.4 mg/dL 0.1-1.0 Serum or plasma alkaline phosphatase albina surement (enzymatic activity/volume) 46 U/L 40-136 Serum or plasma aspartate aminotransfera se measurement (enzymatic activity/volume) 14 U/L 5-34 Serum or plasma alanine aminotransferase measurement (enzymatic activity/volume) 16 U/L 0-55 Serum or plasma protein measurement (mass/volume) 6.3 g/dL 6.4-8.2 Serum or plasma albumin measurement (mass/volume) 3.7 g/dL 3.2-4.5 Serum or plasma troponin i.cardiac measu rement (mass/volume) - 01/04/18 03:15 Serum or plasma troponin i.cardiac measurement (mass/v olume) < ng/mL <0.30 Serum or plasma troponin i.cardiac measu rement (mass/volume) - 01/04/18 09:33 Serum or plasma troponin i.cardiac measurement (mass/v olume) < ng/mL <0.30 Capillary blood glucose measurement by g lucometer (mass/volume) - 01/04/18 16:28 Capillary blood glucose measurement by glucometer (mas s/volume) 169 mg/dL 70-110 Capillary blood glucose measurement by g lucometer (mass/volume) - 01/04/18 20:58 Capillary blood glucose measurement by glucometer (mas s/volume) 159 mg/dL 70-110 Complete blood count (CBC) with automate d white blood cell (WBC) differential - 01/05/18 03:10 Blood leukocytes automated count (number/volume) 7.0 10*3/uL 4.3-11.0 Blood erythrocytes automated count (number/volume) 4.39 10*6/uL 4.35-5.85 Venous blood hemoglobin measurement (mass/volume) 12.6 g/dL 11.5-16.0 Blood hematocrit (volume fraction) 38 % 35-52 Automated erythrocyte mean corpuscular volume 87 [ foz_us] 80-99 Automated erythrocyte mean corpuscular h emoglobin (mass per erythrocyte) 29 pg 25-34 Automated erythrocyte mean corpuscular h emoglobin concentration measurement (mass/volume) 33 g/dL 32-36 Automated erythrocyte distribution width ratio 15. 8 % 10.0- 14.5 Automated blood platelet count (count/volume) 259 10*3/uL [...] 10*3 1.0-4.0 Blood monocytes automated count (number/volume) 0. 7 10*3 0.0-1.0 Automated eosinophil count 0.1 10*3/uL 0 .0-0.3 Automated blood basophil count (count/volume) 0.0 10*3/uL 0.0-0.1 Whole blood basic metabolic panel - 03/20 03:10 Serum or plasma sodium measurement (moles/volume) 141 mmol/L 135-145 Serum or plasma potassium measurement (moles/volume) 4.0 mmol/L 3.6-5.0 Serum or plasma chloride measurement (moles/volume) 111 mmol/L 98-107 Carbon dioxide 22 mmol/L 21-32 Serum or plasma anion gap determination (moles/volume) 8 mmol/L 5-14 Serum or plasma urea nitrogen measurement (mass/volume ) 15 mg/dL 7-18 Serum or plasma creatinine measurement (mass/volume) 0.66 mg/dL 0.60-1.30 Serum or plasma urea nitrogen/creatinine mass ratio 23 NRG Serum or plasma creatinine measurement w ith calculation of estimated glomerular filtration rate > NRG Serum or plasma glucose measurement (mass/volume) 140 mg/dL 70-105 Serum or plasma calcium measurement (mass/volume) 9.2 mg/dL 8.5-10.1 Magnesium - 01/05/18 03:10 Magnesium 2.3 mg/dL 1.8-2.4 THYROID STIMULATING HORMONE - 01/05/18 0 3:10 THYROID STIMULATING HORMONE 3.06 u[iU]/mL 0.35-4.94 TSH - 03/09/18 13:27 TSH 5.76 mIU/L 0.40-4.50 Complete blood count (CBC) with automate d white blood cell (WBC) differential - 07/19/18 12:42 Blood leukocytes automated count (number/volume) 7.6 10*3/uL 4.3-11.0 Blood erythrocytes automated count (number/volume) 3.97 10*6/uL 4.35-5.85 Venous blood hemoglobin measurement (mass/volume) 11.9 g/dL 11.5-16.0 Blood hematocrit (volume fraction) 36 % 35-52 Automated erythrocyte mean corpuscular volume 89 [ foz_us] 80-99 Automated erythrocyte mean corpuscular h emoglobin (mass per erythrocyte) 30 pg 25-34 Automated erythrocyte mean corpuscular h emoglobin concentration measurement (mass/volume) 34 g/dL 32-36 Automated erythrocyte distribution width ratio 14. 7 % 10.0- 14.5 Automated blood platelet count (count/volume) 294 10*3/uL 130-400 Automated blood platelet mean volume measurement 10.3 [foz_us] 7.4-10.4 Automated blood neutrophils/100 leukocytes 51 % 42-75 Automated blood lymphocytes/100 leukocytes 38 % 12-44 Blood monocytes/100 leukocytes 10 % 0-12 Automated blood eosinophils/100 leukocytes 1 % 0-10 Automated blood basophils/100 leukocytes 0 % 0-10 Blood neutrophils automated count (number/volume) 3.8 10*3 1.8-7.8 Blood lymphocytes automated count (number/volume) 2.9 10*3 1.0-4.0 Blood monocytes automated count (number/volume) 0. 8 10*3 0.0-1.0 Automated eosinophil count 0.1 10*3/uL 0 .0-0.3 Automated blood basophil count (count/volume) 0.0 10*3/uL 0.0-0.1 Comprehensive metabolic panel - 07/19/18 12:42 Serum or plasma sodium measurement (moles/volume) 139 mmol/L 135-145 Serum or plasma potassium measurement (moles/volume) 4.2 mmol/L 3.6-5.0 Serum or plasma chloride measurement (moles/volume) 104 mmol/L 98-107 Carbon dioxide 23 mmol/L 21-32 Serum or plasma anion gap determination (moles/volume) 12 mmol/L 5-14 Serum or plasma urea nitrogen measurement (mass/volume ) 22 mg/dL 7-18 Serum or plasma creatinine measurement (mass/volume) 0.71 mg/dL 0.60-1.30 Serum or plasma urea nitrogen/creatinine mass ratio 31 NRG Serum or plasma creatinine measurement w ith calculation of estimated glomerular filtration rate > NRG Serum or plasma glucose measurement (mass/volume) 134 mg/dL 70-105 Serum or plasma calcium measurement (mass/volume) 9.5 mg/dL 8.5-10.1 Serum or plasma total bilirubin measurement (mass/volu me) 0.4 mg/dL 0.1-1.0 Serum or plasma alkaline phosphatase albina surement (enzymatic activity/volume) 51 U/L 40-136 Serum or plasma aspartate aminotransfera se measurement (enzymatic activity/volume) 18 U/L 5-34 Serum or plasma alanine aminotransferase measurement (enzymatic activity/volume) 17 U/L 0-55 Serum or plasma protein measurement (mass/volume) 6.7 g/dL 6.4-8.2 Serum or plasma albumin measurement (mass/volume) 4.0 g/dL 3.2-4.5 CALCIUM CORRECTED 9.5 mg/dL 8.5-10.1 Serum or plasma amylase measurement (enz ymatic activity/volume) - 07/19/18 12:42 Serum or plasma amylase measurement (enzymatic activit y/volume) 20 U/L 25-125 Serum or plasma troponin i.cardiac measu rement (mass/volume) - 07/19/18 12:42 Serum or plasma troponin i.cardiac measurement (mass/v olume) < ng/mL <0.30 Lipase - 07/19/18 12:42 Lipase 15 U/L 8-78 Complete urinalysis with reflex to cultu re - 07/19/18 13:46 Urine color determination YELLOW NRG Urine clarity determination CLEAR NR G Urine pH measurement by test strip 6 5-9 Specific gravity of urine by test strip 1.020 1.016-1.022 Urine protein assay by test strip, semi-quantitative NEGATIVE NEGATIVE Urine glucose detection by automated test strip NE GATIVE NEGATIVE Erythrocytes detection in urine sediment by light micr oscopy 3+ NEGATIVE Urine ketones detection by automated test strip NE GATIVE NEGATIVE Urine nitrite detection by test strip NEGATIVE NEGATIVE Urine total bilirubin detection by test strip NEGA TIVE NEGATIVE Urine urobilinogen measurement by automated test strip (mass/volume) NORMAL NORMAL Urine leukocyte esterase detection by dipstick 1+ NEGATIVE Automated urine sediment erythrocyte cou nt by microscopy (number/high power field) [HPF] NRG Automated urine sediment leukocyte count by microscopy (number/high power field) [HPF] NRG Bacteria detection in urine sediment by light microsco py NEGATIVE NRG Squamous epithelial cells detection in u rine sediment by light microscopy 0-2 NRG Crystals detection in urine sediment by light microsco py NONE NRG Casts detection in urine sediment by light microscopy NONE NRG Mucus detection in urine sediment by light microscopy NEGATIVE NRG Complete urinalysis with reflex to culture NO NRG Capillary blood glucose measurement by g lucometer (mass/volume) - 07/19/18 14:57 Capillary blood glucose measurement by glucometer (mas s/volume) 129 mg/dL 70-110 Bacterial blood culture - 07/19/18 15:55 Bacterial blood culture NG NRG Blood lactic acid measurement (moles/vol ume) - 07/19/18 16:10 Blood lactic acid measurement (moles/volume) 1.54 mmol/L 0.50-2.00 Bacterial blood culture - 07/19/18 16:10 Bacterial blood culture NG NRG Complete blood count (CBC) with automate d white blood cell (WBC) differential - 07/20/18 05:23 Blood leukocytes automated count (number/volume) 7.4 10*3/uL 4.3-11.0 Blood erythrocytes automated count (number/volume) 3.63 10*6/uL 4.35-5.85 Venous blood hemoglobin measurement (mass/volume) 10.6 g/dL 11.5-16.0 Blood hematocrit (volume fraction) 33 % 35-52 Automated erythrocyte mean corpuscular volume 91 [ foz_us] 80-99 Automated erythrocyte mean corpuscular h emoglobin (mass per erythrocyte) 29 pg 25-34 Automated erythrocyte mean corpuscular h emoglobin concentration measurement (mass/volume) 32 g/dL 32-36 Automated erythrocyte distribution width ratio 14. 9 % 10.0- 14.5 Automated blood platelet count (count/volume) 272 10*3/uL 130-400 Automated blood platelet mean volume measurement 10.0 [foz_us] 7.4-10.4 Automated blood neutrophils/100 leukocytes 53 % 42-75 Automated blood lymphocytes/100 leukocytes 36 % 12-44 Blood monocytes/100 leukocytes 9 % 0-12 Automated blood eosinophils/100 leukocytes 1 % 0-10 Automated blood basophils/100 leukocytes 1 % 0-10 Blood neutrophils automated count (number/volume) 3.9 10*3 1.8-7.8 Blood lymphocytes automated count (number/volume) 2.6 10*3 1.0-4.0 Blood monocytes automated count (number/volume) 0. 7 10*3 0.0-1.0 Automated eosinophil count 0.1 10*3/uL 0 .0-0.3 Automated blood basophil count (count/volume) 0.0 10*3/uL 0.0-0.1 Comprehensive metabolic panel - 07/20/18 05:23 Serum or plasma sodium measurement (moles/volume) 141 mmol/L 135-145 Serum or plasma potassium measurement (moles/volume) 3.6 mmol/L 3.6-5.0 Serum or plasma chloride measurement (moles/volume) 111 mmol/L 98-107 Carbon dioxide 23 mmol/L 21-32 Serum or plasma anion gap determination (moles/volume) 7 mmol/L 5-14 Serum or plasma urea nitrogen measurement (mass/volume ) 18 mg/dL 7-18 Serum or plasma creatinine measurement (mass/volume) 0.66 mg/dL 0.60-1.30 Serum or plasma urea nitrogen/creatinine mass ratio 27 NRG Serum or plasma creatinine measurement w ith calculation of estimated glomerular filtration rate > NRG Serum or plasma glucose measurement (mass/volume) 100 mg/dL 70-105 Serum or plasma calcium measurement (mass/volume) 8.4 mg/dL 8.5-10.1 Serum or plasma total bilirubin measurement (mass/volu me) 0.2 mg/dL 0.1-1.0 Serum or plasma alkaline phosphatase albina surement (enzymatic activity/volume) 45 U/L 40-136 Serum or plasma aspartate aminotransfera se measurement (enzymatic activity/volume) 18 U/L 5-34 Serum or plasma alanine aminotransferase measurement (enzymatic activity/volume) 16 U/L 0-55 Serum or plasma protein measurement (mass/volume) 5.1 g/dL 6.4-8.2 Serum or plasma albumin measurement (mass/volume) 3.3 g/dL 3.2-4.5 CALCIUM CORRECTED 9.0 mg/dL 8.5-10.1 TSH - 07/21/18 10:35 TSH 4.59 mIU/L 0.40-4.50 TSH - 10/07/18 09:07 TSH 6.50 mIU/L 0.40-4.50 Complete blood count (CBC) with automate d white blood cell (WBC) differential - 01/13/19 23:35 Blood leukocytes automated count (number/volume) 8.6 10*3/uL 4.3-11.0 Blood erythrocytes automated count (number/volume) 4.07 10*6/uL 4.35-5.85 Venous blood hemoglobin measurement (mass/volume) 11.8 g/dL 11.5-16.0 Blood hematocrit (volume fraction) 37 % 35-52 Automated erythrocyte mean corpuscular volume 90 [ foz_us] 80-99 Automated erythrocyte mean corpuscular h emoglobin (mass per erythrocyte) 29 pg 25-34 Automated erythrocyte mean corpuscular h emoglobin concentration measurement (mass/volume) 32 g/dL 32-36 Automated erythrocyte distribution width ratio 14. 1 % 10.0- 14.5 Automated blood platelet count (count/volume) 356 10*3/uL 130-400 Automated blood platelet mean volume measurement 9.8 [foz_us] 7.4-10.4 Automated blood neutrophils/100 leukocytes 59 % 42-75 Automated blood lymphocytes/100 leukocytes 29 % 12-44 Blood monocytes/100 leukocytes 9 % 0-12 Automated blood eosinophils/100 leukocytes 3 % 0-10 Automated blood basophils/100 leukocytes 1 % 0-10 Blood neutrophils automated count (number/volume) 5.1 10*3 1.8-7.8 Blood lymphocytes automated count (number/volume) 2.5 10*3 1.0-4.0 Blood monocytes automated count (number/volume) 0. 7 10*3 0.0-1.0 Automated eosinophil count 0.3 10*3/uL 0 .0-0.3 Automated blood basophil count (count/volume) 0.1 10*3/uL 0.0-0.1 Influenza virus A and B antigen detect n - 01/13/19 23:35 FLU RESULT NEGATIVE FOR INFLUENZA A AND B ANTIGENS BY IA [facility] Comprehensive metabolic panel - 01/13/19 23:35 Serum or plasma sodium measurement (moles/volume) 141 mmol/L 135-145 Serum or plasma potassium measurement (moles/volume) 3.9 mmol/L 3.6-5.0 Serum or plasma chloride measurement (moles/volume) 102 mmol/L 98-107 Carbon dioxide 28 mmol/L 21-32 Serum or plasma anion gap determination (moles/volume) 11 mmol/L 5-14 Serum or plasma urea nitrogen measurement (mass/volume ) 16 mg/dL 7-18 Serum or plasma creatinine measurement (mass/volume) 0.72 mg/dL 0.60-1.30 Serum or plasma urea nitrogen/creatinine mass ratio 22 NRG Serum or plasma creatinine measurement w ith calculation of estimated glomerular filtration rate > NRG Serum or plasma glucose measurement (mass/volume) 253 mg/dL 70-105 Serum or plasma calcium measurement (mass/volume) 9.9 mg/dL 8.5-10.1 Serum or plasma total bilirubin measurement (mass/volu me) 0.2 mg/dL 0.1-1.0 Serum or plasma alkaline phosphatase albina surement (enzymatic activity/volume) 74 U/L 40-136 Serum or plasma aspartate aminotransfera se measurement (enzymatic activity/volume) 38 U/L 5-34 Serum or plasma alanine aminotransferase measurement (enzymatic activity/volume) 24 U/L 0-55 Serum or plasma protein measurement (mass/volume) 7.4 g/dL 6.4-8.2 Serum or plasma albumin measurement (mass/volume) 4.2 g/dL 3.2-4.5 CALCIUM CORRECTED 9.7 mg/dL 8.5-10.1 Serum or plasma C reactive protein measu rement (mass/volume) - 01/13/19 23:35 Serum or plasma C reactive protein measurement (mass/v olume) 1.77 mg/dL 0.00-0.50 CULTURE, URINE - 06/02/19 11:52 CULTURE, URINE, ROUTINE SEE NOTE [facility] CBC - 08/26/19 09:14 WHITE BLOOD CELL COUNT 7.3 Thousand/uL 3 .8-10.8 RED BLOOD CELL COUNT 4.35 Million/uL 3.8 0-5.10 HEMOGLOBIN 12.4 g/dL 11.7-15.5 HEMATOCRIT 39.7 % 35.0-45.0 MCV 91.3 fL 80.0-100.0 MCH 28.5 pg 27.0-33.0 MCHC 31.2 g/dL 32.0-36.0 RDW 13.8 % 11.0-15.0 PLATELET COUNT 316 Thousand/uL 140-400 MPV 9.9 fL 7.5-12.5 ABSOLUTE NEUTROPHILS 4015 cells/uL 1500- 7800 ABSOLUTE LYMPHOCYTES 2570 cells/uL 850-3 900 ABSOLUTE MONOCYTES 562 cells/uL 200-950 ABSOLUTE EOSINOPHILS 102 cells/uL 15-500 ABSOLUTE BASOPHILS 51 cells/uL 0-200 NEUTROPHILS 55 % NRG LYMPHOCYTES 35.2 % NRG MONOCYTES 7.7 % NRG EOSINOPHILS 1.4 % NRG BASOPHILS 0.7 % NRG TSH - 08/26/19 09:14 TSH 5.64 mIU/L 0.40-4.50 CULTURE, URINE - 09/01/19 00:00 CULTURE, URINE, ROUTINE SEE NOTE NR Influenza virus A and B antigen detectio n - 01/03/20 08:54 CALL POSITIVES (F1 HELP) CALLED TO [facility] IN ER AT 0928 NR FLU RESULT POSITIVE FOR INFLUENZA B ANT IGEN, NEG FOR A ANTIGEN, BY IA [facility] Complete blood count (CBC) with automate d white blood cell (WBC) differential - 01/03/20 09:15 Blood leukocytes automated count (number/volume) 13.5 10*3/uL 4.3-11.0 Blood erythrocytes automated count (number/volume) 4.48 10*6/uL 4.35-5.85 Venous blood hemoglobin measurement (mass/volume) 12.6 g/dL 11.5-16.0 Blood hematocrit (volume fraction) 39 % 35-52 Automated erythrocyte mean corpuscular volume 88 [ foz_us] 80-99 Automated erythrocyte mean corpuscular h emoglobin (mass per erythrocyte) 28 pg 25-34 Automated erythrocyte mean corpuscular h emoglobin concentration measurement (mass/volume) 32 g/dL 32-36 Automated erythrocyte distribution width ratio 14. 9 % 10.0- 14.5 Automated blood platelet count (count/volume) 233 10*3/uL 130-400 Automated blood platelet mean volume measurement 10.0 [foz_us] 7.4-10.4 Automated blood neutrophils/100 leukocytes 81 % 42-75 Automated blood lymphocytes/100 leukocytes 13 % 12-44 Blood monocytes/100 leukocytes 7 % 0-12 Automated blood eosinophils/100 leukocytes 0 % 0-10 Automated blood basophils/100 leukocytes 0 % 0-10 Blood neutrophils automated count (number/volume) 10.8 10*3 1.8-7.8 Blood lymphocytes automated count (number/volume) 1.7 10*3 1.0-4.0 Blood monocytes automated count (number/volume) 0. 9 10*3 0.0-1.0 Automated eosinophil count 0.0 10*3/uL 0 .0-0.3 Automated blood basophil count (count/volume) 0.0 10*3/uL 0.0-0.1 Comprehensive metabolic panel - 01/03/20 09:15 Serum or plasma sodium measurement (moles/volume) 140 mmol/L 135-145 Serum or plasma potassium measurement (moles/volume) 4.0 mmol/L 3.6-5.0 Serum or plasma chloride measurement (moles/volume) 104 mmol/L 98-107 Carbon dioxide 26 mmol/L 21-32 Serum or plasma anion gap determination (moles/volume) 10 mmol/L 5-14 Serum or plasma urea nitrogen measurement (mass/volume ) 12 mg/dL 7-18 Serum or plasma creatinine measurement (mass/volume) 0.67 mg/dL 0.60-1.30 Serum or plasma urea nitrogen/creatinine mass ratio 18 NRG Serum or plasma creatinine measurement w ith calculation of estimated glomerular filtration rate > NRG Serum or plasma glucose measurement (mass/volume) 200 mg/dL 70-105 Serum or plasma calcium measurement (mass/volume) 9.3 mg/dL 8.5-10.1 Serum or plasma total bilirubin measurement (mass/volu me) 0.4 mg/dL 0.1-1.0 Serum or plasma alkaline phosphatase albina surement (enzymatic activity/volume) 82 U/L 40-136 Serum or plasma aspartate aminotransfera se measurement (enzymatic activity/volume) 20 U/L 5-34 Serum or plasma alanine aminotransferase measurement (enzymatic activity/volume) 22 U/L 0-55 Serum or plasma protein measurement (mass/volume) 7.3 g/dL 6.4-8.2 Serum or plasma albumin measurement (mass/volume) 4.0 g/dL 3.2-4.5 CALCIUM CORRECTED 9.3 mg/dL 8.5-10.1 Serum or plasma C reactive protein measu rement (mass/volume) - 01/03/20 09:15 Serum or plasma C reactive protein measurement (mass/v olume) 2.16 mg/dL 0.00-0.50 Complete urinalysis with reflex to cultu re - 01/03/20 10:25 Urine color determination YELLOW NRG Urine clarity determination CLEAR NR G Urine pH measurement by test strip 6.0 5-9 Specific gravity of urine by test strip >= 1.016-1.022 Urine protein assay by test strip, semi-quantitative NEGATIVE NEGATIVE Urine glucose detection by automated test strip 1+ NEGATIVE Erythrocytes detection in urine sediment by light micr oscopy NEGATIVE NEGATIVE Urine ketones detection by automated test strip NE GATIVE NEGATIVE Urine nitrite detection by test strip NEGATIVE NEGATIVE Urine total bilirubin detection by test strip NEGA TIVE NEGATIVE Urine urobilinogen measurement by automated test strip (mass/volume) 0.2 mg/dL < = 1.0 Urine leukocyte esterase detection by dipstick NEG ATIVE NEGATIVE Automated urine sediment erythrocyte cou nt by microscopy (number/high power field) NONE NRG Automated urine sediment leukocyte count by microscopy (number/high power field) [HPF] NRG Bacteria detection in urine sediment by light microsco py NEGATIVE NRG Squamous epithelial cells detection in u rine sediment by light microscopy 2-5 NRG Crystals detection in urine sediment by light microsco py NONE NRG Casts detection in urine sediment by light microscopy NONE NRG Mucus detection in urine sediment by light microscopy NEGATIVE NRG Complete urinalysis with reflex to culture NO NRG Capillary blood glucose measurement by g lucometer (mass/volume) - 01/03/20 16:20 Capillary blood glucose measurement by glucometer (mas s/volume) 148 mg/dL 70-110 Capillary blood glucose measurement by g lucometer (mass/volume) - 01/03/20 22:14 Capillary blood glucose measurement by glucometer (mas s/volume) 134 mg/dL 70-110 Automated blood complete blood count (he mogram) panel - 01/04/20 04:47 Blood leukocytes automated count (number/volume) 8.3 10*3/uL 4.3-11.0 Blood erythrocytes automated count (number/volume) 3.94 10*6/uL 4.35-5.85 Venous blood hemoglobin measurement (mass/volume) 11.2 g/dL 11.5-16.0 Blood hematocrit (volume fraction) 35 % 35-52 Automated erythrocyte mean corpuscular volume 90 [ foz_us] 80-99 Automated erythrocyte mean corpuscular h emoglobin (mass per erythrocyte) 28 pg 25-34 Automated erythrocyte mean corpuscular h emoglobin concentration measurement (mass/volume) 32 g/dL 32-36 Automated erythrocyte distribution width ratio 15. 0 % 10.0- 14.5 Automated blood platelet count (count/volume) 201 10*3/uL 130-400 Automated blood platelet mean volume measurement 10.6 [foz_us] 7.4-10.4 Capillary blood glucose measurement by g lucometer (mass/volume) - 01/04/20 06:06 Capillary blood glucose measurement by glucometer (mas s/volume) 123 mg/dL 70-110 Capillary blood glucose measurement by g lucometer (mass/volume) - 01/04/20 11:22 Capillary blood glucose measurement by glucometer (mas s/volume) 145 mg/dL 70-110 Capillary blood glucose measurement by g lucometer (mass/volume) - 01/04/20 16:38 Capillary blood glucose measurement by glucometer (mas s/volume) 181 mg/dL 70-110 Capillary blood glucose measurement by g lucometer (mass/volume) - 01/04/20 20:21 Capillary blood glucose measurement by glucometer (mas s/volume) 141 mg/dL 70-110 Capillary blood glucose measurement by g lucometer (mass/volume) - 01/05/20 06:29 Capillary blood glucose measurement by glucometer (mas s/volume) 119 mg/dL 70-110 Capillary blood glucose measurement by g lucometer (mass/volume) - 01/05/20 11:17 Capillary blood glucose measurement by glucometer (mas s/volume) 134 mg/dL 70-110 Encounters ACCT No. Visit Date/Time Discharge Status Pt. Type Provider Facility Loc./Unit Complaint [id number] 06/02/2019 11:00:00 06/02/2019 23:59: 59 CLS Outpatient [facility] [id number] 09/01/2019 14:40:00 Document Registration [id number] 08/26/2019 09:00:00 Document Registration [id number] 06/02/2019 11:00:00 Document Registration [id number] 10/07/2018 09:00:00 Document Registration [id number] 07/21/2018 10:00:00 Document Registration [id number] 03/09/2018 13:00:00 Document Registration [id number] 11/19/2017 15:20:00 Document Registration [id number] 08/06/2017 16:20:00 Document Registration [id number] 07/11/2017 09:00:00 Document Registration [id number] 01/03/2020 11:22:00 15:20:00 DIS Outpatient JAROD FORTE, DYLAN Saunders [facility] 4TH INFLUENZA B;N/V/D [id number] 01/03/2020 16:15:00 23:59:59 CLS Preadmit JAKY BONILLA MD [facility] RAD LUNG SCREENING Z87.891 [id number] 01/13/2019 22:40:00 00:54:00 DIS Emergency MARTIN FORTE, BERENICE Art [facility] ER DOCTOR TODAY,HAS PNEUMO LYNDA, GETTING WORSE [id number] 07/22/2018 14:27:00 23:59:59 CLS Outpatient OLIVER PERLA MD [facility] RAD LT URJ STONE [id number] 07/19/2018 17:10:00 11:38:00 DIS Inpatient OQUENDO DO, KODI K [facility] 4TH KIDNEY STONE, NAUSEA, V OMITING [id number] 04/02/2018 20:45:00 22:00:00 DIS Emergency ALLISON PUCKETT MD [facility] ER FALL [id number] 01/19/2018 07:30:00 23:59:59 CLS Outpatient AZAR RODARTE MD [facility] CARD CAD [id number] 01/14/2018 11:35:00 23:59:59 CLS Outpatient AZAR RODARTE MD [facility] CARD CAD [id number] 01/03/2018 17:00:00 018 14:00:00 DIS Inpatient JAKY BONILLA MD [facility] ICU CHEST PAIN, ANGINA [id number] 12/20/2017 21:50:00 018 18:13:00 DIS Inpatient ALLAN GUZMAN MD [facility] 4TH INFLUENZA B; COPD EXACE RBATION [id number] 11/13/2017 08:38:00 018 23:59:59 CLS Outpatient MADL, MARIA L CHEF PASSENGER VESSEL [facility] RAD Z78.0 POST MENOPAUSAL [id number] 11/10/2017 09:00:00 018 23:59:59 CLS Preadmit GLENDY MCKEON MD [facility] ENDO SCREENING [id number] 11/04/2017 05:19:00 018 23:59:59 CLS Outpatient GLENDY MCKEON MD [facility] PREOP COLONOSCOPY [id number] 10/28/2017 07:43:00 017 23:59:59 CLS Outpatient MADL, MARIA L CHEF PASSENGER VESSEL [facility] RAD SCREENING [id number] 10/09/2017 11:32:00 017 23:59:59 CLS Preadmit MADL, MARIA L CHEF PASSENGER VESSEL [facility] RAD Z12.31 SCREENING [id number] 07/08/2016 10:30:00 016 23:59:59 CLS Preadmit ОЛЕГ AGUILA [facility] CARD CAD,SHAN,HTN,HL P [id number] 04/08/2016 10:34:00 016 00:01:00 DIS Outpatient DARINEL AGUILA [facility] CARD CAD,SHAN,HTN ,HLP [id number] 06/18/2016 19:00:00 016 08:01:00 DIS Outpatient JAKY BONILLA MD [facility] CATH CHEST PAIN [id number] 05/19/2016 15:07:00 016 15:29:00 DIS Inpatient KODI OQUENDO DO, [facility] 4TH CHEST PAIN [id number] 04/02/2016 09:55:00 016 23:59:59 CLS Outpatient AZAR RODARTE MD [facility] HH CAD, ELEVATED CHOLESTER OL [id number] 02/24/2016 18:31:00 016 12:38:00 DIS Inpatient HECTOR COTTO MD [facility] 4TH RT UPPER LOBE PNEUMONIA [id number] 02/21/2016 09:38:00 016 10:50:00 DIS Outpatient AZAR RODARTE MD [facility] CAD,HTN,HLP [id number] 07/24/2015 07:11:00 015 23:59:59 CLS Outpatient AZAR RODARTE MD [facility] CARD CAD,NEAR SYCOPE,HTN [id number] 07/17/2015 08:28:00 015 23:59:59 CLS Outpatient DARINEL AGUILA [facility] CARD CAD,DYSPNEA ,HTN,NEAR SYNCOPE [id number] 06/30/2015 13:45:00 015 23:59:59 CLS Outpatient AZAR RODARTE MD [facility] [facility] CARD BRADYCARDIA [id number] 10/18/2014 11:27:00 014 14:17:00 DIS Emergency GERRI HODGE [facility] ER WEAK,DIZZY, N/V [id number] 08/18/2014 08:16:00 014 11:05:00 DIS Emergency MARILYN FUCHS MD [facility] ER WEAKNESS [id number] 02/10/2014 15:15:00 014 17:35:00 DIS Emergency TRISHA DUNN DO [facility] ER NEAR SYNCOPE [id number] 12/22/2013 07:52:00 15:25:00 DIS Outpatient AZAR RODARTE MD [facility] CATH CP,HLP,HTN, [id number] 10/11/2013 11:23:00 23:59:59 CLS Outpatient JEANINE WHITTAKER DO [facility] RAD THYROID NODULES [id number] 09/28/2013 16:10:00 23:59:59 CLS Outpatient MORGAN SALES DO [facility] RAD SOB,CYANOSIS [id number] 09/10/2013 20:01:00 06:45:00 DIS Outpatient MORGAN SALES DO [facility] SLEEP COPD,DYSPNEA,EXCESSIVE SLEEPINESS [id number] 08/25/2013 11:34:00 23:59:59 CLS Outpatient MORGAN SALES DO [facility] RT COPD,DYSPNEA [id number] 08/18/2013 07:31:00 23:59:59 CLS Outpatient AZAR RODARTE MD [facility] RAD DYSPNEA,CAD,COPD [id number] 08/13/2013 07:57:00 23:59:59 CLS Outpatient AZAR RODARTE MD [facility] CARD DYSPNEA,CAD,COPD [id number] 06/26/2013 14:41:00 23:59:59 CLS Outpatient [id number] 06/15/2013 10:30:00 23:59:59 CLS Outpatient JEANINE WHITTAKER DO [facility] RAD SCREENING [id number] 11/24/2015 13:37:00 Document Registration [id number] 07/17/2015 08:28:00 Document Registration [id number] 06/02/2012 22:50:00 Document Registration [id number] 05/19/2012 08:33:00 Document Registration [id number] 07/10/2011 07:30:00 Document Registration [id number] 06/26/2011 10:27:00 Document Registration [id number] 06/07/2011 02:00:00 Document Registration [id number] 08/15/2010 09:05:00 Document Registration [id number] 08/01/2010 09:03:00 Document Registration [id number] 06/28/2010 11:39:00 Document Registration [id number] 06/12/2010 13:36:00 Document Registration [id number] 02/09/2010 11:36:00 Document Registration [id number] 01/26/2007 11:54:00 Document Registration
== END 2020-01-05 15:20 | disposition home or self-care (01) ==
LOC: EDUNIT# 08:34 → ER 08:35 → 4TH 11:22 → UNDOADMOB 11:22
PROVIDERS: ADMIT Family Medicine; ATTEND Family Medicine
DX: J10.1 Influenza due to other identified influenza virus with other respiratory manifestations (principal); I10 Essential (primary) hypertension; I25.10 Atherosclerotic heart disease of native coronary artery without angina pectoris; J44.9 Chronic obstructive pulmonary disease, unspecified; I25.2 Old myocardial infarction; E78.00 Pure hypercholesterolemia, unspecified; K21.9 Gastro-esophageal reflux disease without esophagitis; M19.90 Unspecified osteoarthritis, unspecified site; G89.29 Other chronic pain; M54.9 Dorsalgia, unspecified; E03.9 Hypothyroidism, unspecified; E11.9 Type 2 diabetes mellitus without complications; E78.2 Mixed hyperlipidemia; Z88.5 Allergy status to narcotic agent; Z79.82 Long term (current) use of aspirin; Z79.02 Long term (current) use of antithrombotics/antiplatelets; Z79.891 Long term (current) use of opiate analgesic; Z87.891 Personal history of nicotine dependence; Z95.1 Presence of aortocoronary bypass graft; Z90.710 Acquired absence of both cervix and uterus; Z88.6 Allergy status to analgesic agent; Z82.61 Family history of arthritis
CPT/HCPCS: 36415; 51701; 80053; 81000; 82962; 85025; 85027; 86141; 87804; 94761; G0378

== ENCOUNTER → 2020-04-18 | Outpatient (CLI) | payer MEDICARE, MEDICAID ==
[~2020-04-18] MED LIST changes: +FLUT16SP22 NSEACH; +LEVO112T55 PO; +LOSA100T57 PO; +MECL-172 PO
--- NOTE | 2020-04-18 12:53 | Diagnostic Imaging Report ---
INDICATION: Routine screening. Comparison is made with prior mammogram 11/13/2017 and 06/15/2013. 2-D and 3-D bilateral screening mammography was performed with CAD. Both breasts are heterogeneously dense, limiting the sensitivity of mammography. Parenchymal pattern is stable. No dominant mass or malignant appearing microcalcifications are seen. Axillae are unremarkable. IMPRESSION: BI-RADS Category 2 No mammographic features suspicious for malignancy are identified. ACR BI-RADS Category 2: Benign findings. Result letter will be mailed to the patient. Note: At least 10% of breast cancer is not imaged by mammography. Dictated by: Dictated on workstation # [id number]
== END ==
LOC: RAD 10:50
PROVIDERS: ATTEND Pediatrics
DX: Z12.31 Encounter for screening mammogram for malignant neoplasm of breast (principal)
CPT/HCPCS: 77063; 77067

== ENCOUNTER → 2020-05-11 | Outpatient (CLI) | payer MEDICARE, MEDICAID ==
--- NOTE | 2020-05-11 15:06 | Diagnostic Imaging Report ---
CT Lung Screening INDICATION: 30 pack-year smoking history TECHNIQUE: Noncontrast, low-dose CT imaging performed according to the lung cancer screening protocol. Auto Exposure Controls were utilize during the CT exam to meet ALARA standards for radiation dose reduction. COMPARISON:10/28/2017 FINDINGS:The previous CT chest exam of 10/28/2017 noted a 4 mm nodule in the right upper lobe. There is no other lung mass identified. On this study, there is a 4 mm pleural-based nodule along the posterior aspect of the right upper lobe (image 28 series 2). This finding is unchanged when compared to the prior exam. There is also a 3.9 mm nodule along the periphery of the right upper lobe (image 76 series 2). This finding is also stable when compared to the prior exam. There is no other parenchymal lung mass visualized. The lungs are generally clear. There is no evidence for failure, pneumonia or for a pleural effusion. The heart size is stable when compared to the prior exam. Coronary artery calcifications are evident and there are sternotomy wires and surgical clips again visualized. The aorta is not abnormally dilated. There is no obvious mediastinal or hilar adenopathy. The thyroid gland, where visualized, is unremarkable. There is no definite breast mass. The sections through the upper abdomen failed to show any sign of an acute abnormality. The bone windows are unremarkable for a fracture or for a destructive lesion. IMPRESSION: 1. There are 2 small benign-appearing nodules in the right upper lobe. There is no parenchymal mass to suggest malignancy. A follow-up low-dose lung cancer screening exam in one year would be recommended for further study. 2. There is no acute cardiopulmonary abnormality noted. 3. There is borderline cardiomegaly, coronary artery disease and evidence of prior cardiac surgery. LUNG-RADS CATEGORY:2 MODIFIER: OTHER SIGNIFICANT FINDINGS: Dictated by: Dictated on workstation # [id number]
== END ==
LOC: RAD 10:39
PROVIDERS: ATTEND Pediatrics
DX: Z12.2 Encounter for screening for malignant neoplasm of respiratory organs (principal); E11.69 Type 2 diabetes mellitus with other specified complication; I25.10 Atherosclerotic heart disease of native coronary artery without angina pectoris; R91.8 Other nonspecific abnormal finding of lung field; Z87.891 Personal history of nicotine dependence

== ENCOUNTER → 2020-07-19 | Outpatient (CLI) | payer MEDICARE, MEDICAID ==
[~2020-07-19] VITALS: Ht 152 cm; Wt 70.0 kg
[~2020-07-19] MED LIST changes: +ASPI-1238 PO; -ASPI-983 PO; -PANT40TA3 PO; +PANT40TA52 PO; +REGADENOSON 0.4 MG/5 ML SYR (LEXISCAN) IV ONE
[2020-07-19] MEDS: CATHETER FLUSH 10 ML SYR IV PRN ×2 (08:13→09:19)
[2020-07-19 09:17] VITALS: BP 138/71
--- NOTE | 2020-07-19 13:32 | Cardiology Stress Test Report ---
Stress Test Report Date of Procedure/Referring: Date of Procedure: Jul 19, 2020 PCP Azar Campbell MD [facility] Indications: Chest pain Baseline Heart Rate: 56 Baseline Blood Pressure: Blood Pressure Systolic: 138 Blood Pressure Diastolic: 71 Baseline Vitals Vital Signs Date Time Temp Pulse Resp B/P (MAP) Pulse Ox O2 Delivery O2 Flow Rate FiO2 07/19/20 09:17 60 16 138/71 (93) 97 Room Air Baseline EKG: Baseline EKG: normal sinus rhythm Summary After explaining the procedure to the patient, she signed a consent and then brought to the stress nuclear laboratory. Patient received 0.4 mg Lexiscan for stress test, ECG, heart rate and blood pressure were monitored continuously. Resting and stress dose of radio tracer were injected, imaging was acquired and reviewed in short axis, horizontal long axis and vertical long axis views. TID: 1.02 SSS: 2 SDS: 2 EF: 64 1. Patient tolerated Lexiscan well 2. Breast attenuation with mild decreased uptake at the mid to apical anterior wall with mild reversibility, borderline stress test 3. Normal left ventricular size, EF 64 percent AZAR CAMPBELL MD Jul 19, 2020 13:32
== END ==
LOC: CARD 08:01
PROVIDERS: ATTEND Internal Medicine Cardiovascular Disease
DX: I25.10 Atherosclerotic heart disease of native coronary artery without angina pectoris (principal)
CPT/HCPCS: 78452; 93017; A9502

== ENCOUNTER 2020-10-16 15:01 | Observation (INO) | payer MEDICARE, MEDICAID ==
[~2020-10-16] VITALS: Ht 152.4 cm; Wt 69.3 kg
[~2020-10-16 15:01] MED LIST changes: -MECL-172 PO; +MECL-173 PO; -REGADENOSON 0.4 MG/5 ML SYR (LEXISCAN) IV ONE
[2020-10-16 15:31] LABS: ALBUMIN 3.7 GM/DL (3.2-4.5); CHLORIDE 103 MMOL/L (98-107); POTASSIUM 3.3 MMOL/L (3.6-5.0); SODIUM 141 MMOL/L (135-145)
[2020-10-16 15:32] LABS: CALCIUM 8.6 MG/DL (8.5-10.1)
[2020-10-16 15:33] LABS: BASOPHILS % (AUTO) 0 % (0-10); EOSINOPHILS % (AUTO) 0 % (0-10); GLUCOSE 150 MG/DL (70-105); HEMATOCRIT 36 % (35-52); HEMOGLOBIN 11.2 g/dL (11.5-16.0); LYMPHOCYTES # (AUTO) 1.5 10^3/uL (1.0-4.0); LYMPHOCYTES % (AUTO) 32 % (12-44); MEAN CORPUSCULAR HEMOGLOBIN 29 pg (25-34); MEAN CORPUSCULAR HGB CONC 31 g/dL (32-36); MEAN CORPUSCULAR VOLUME 92 fL (80-99); MEAN PLATELET VOLUME 10.5 fL (9.0-12.2); MONOCYTES # (AUTO) 0.4 10^3/uL (0.0-1.0); MONOCYTES % (AUTO) 9 % (0-12); NEUTROPHILS # (AUTO) 2.7 10^3/uL (1.8-7.8); NEUTROPHILS % (AUTO) 58 % (42-75); PLATELET COUNT 239 10^3/uL (130-400); WHITE BLOOD COUNT 4.7 10^3/uL (4.3-11.0)
[2020-10-16 15:34] LABS: CARBON DIOXIDE 28 MMOL/L (21-32)
[2020-10-16 15:35] LABS: BILIRUBIN,TOTAL 0.3 MG/DL (0.1-1.0)
--- NOTE | 2020-10-16 15:35 | ED Respiratory ---
General Chief Complaint: Respiratory Problems Stated Complaint: COVID + Nursing Triage Note: PT BROUGHT IN BY [facility] FROM [facility] FOR SOA AND COVID +. STATES HAS BEEN FEELING BAD FOR A WEEK. Source: patient Exam Limitations: no limitations History of Present Illness Date Seen by Provider: Oct 16, 2020 Time Seen by Provider: 15:33 Initial Comments To ER by EMS from [facility] with reports of shortness of breath. She has felt this way for about a week. They tested her for Covid today and she was positive. She has no fevers. She has COPD and wears oxygen gsgelp-sqs-hynsh at 2L/min per nasal cannula. Timing/Duration: constant Severity: moderate Associated Symptoms: cough, shortness of breath Allergies and Home Medications Allergies Coded Allergies: fentanyl (Unverified Allergy, Intermediate, SEVERE NAUSEA/VOMITTING, 06/07/11) morphine (Verified Allergy, Unknown, 07/19/18) tramadol (Verified Allergy, Unknown, 09/01/08) Home Medications Acetaminophen 500 Mg Tablet, 1,000 MG PO Q6H PRN for PAIN-MILD, (Reported) TAKES 2 (500 MG) TABLETS Aspirin 81 Mg Tablet.dr, 81 MG PO DAILY, (Reported) Atorvastatin Calcium 40 Mg Tablet, 40 MG PO HS, (Reported) Clopidogrel Bisulfate 75 Mg Tablet, 75 MG PO DAILY, (Reported) Fenofibrate 160 Mg Tablet, 160 MG PO DAILY, (Reported) Fluticasone Propionate 16 Gm Seymour.susp, 1 SPRAY NSEACH BID PRN for ALLERGY SYMPTOMS, (Reported) Isosorbide Mononitrate 60 Mg Tab, 60 MG PO DAILY, (Reported) Levothyroxine Sodium 112 Mcg Tablet, 112 MCG PO DAILY, (Reported) Losartan Potassium 100 Mg Tablet, 100 MG PO DAILY Prescribed by: DYLAN OLIVERA on 01/05/20 1130 Meclizine HCl 12.5 Mg Tablet, 12.5-25 MG PO Q6H PRN for VERTIGO, (Reported) Oseltamivir Phosphate 30 Mg Capsule, 30 MG PO BID [facility] inpatient med for home to complete 5 day course. Prescribed by: DYLAN OLIVERA on 01/05/20 1046 Pantoprazole Sodium 40 Mg Tablet.dr, 40 MG PO DAILY, (Reported) Ranolazine 1,000 Mg Tab.er.12h, 1,000 MG PO BID, (Reported) Sitagliptin Phos/Metformin HCl 1 Each Tablet, 1 EACH PO BID WITH MEALS, (Reported) Patient Home Medication List Home Medication List Reviewed: Yes Review of Systems Review of Systems Constitutional: see HPI EENTM: see HPI Respiratory: no symptoms reported Cardiovascular: no symptoms reported Genitourinary: no symptoms reported Musculoskeletal: see HPI Skin: no symptoms reported Psychiatric/Neurological: No Symptoms Reported Hematologic/Lymphatic: No Symptoms Reported Past Dsrebee-Gygsni-Nisbyu Hx Patient Social History Alcohol Use: Denies Use Recreational Drug Use: No Smoking Status: Former Smoker Type Used: Cigarettes Former Smoker, Quit: May 19, 2009 2nd Hand Smoke Exposure: No Recent Foreign Travel: No Contact w/Someone Who Travel: No Recent Infectious Disease Expo: Yes Recent Hopitalizations: Yes Immunizations Up To Date Tetanus Booster (TDap): Unknown PED Vaccines UTD: Yes Date of Pneumonia Vaccine: Aug 03, 2017 Date of Influenza Vaccine: Aug 03, 2019 Seasonal Allergies Seasonal Allergies: No Past Medical History Surgeries: Yes (triple bypass, partial hyst, heart stent, heart cath,) Cardiac, CABG, Coronary Stent, Gallbladder, Hysterectomy Respiratory: Yes (O2 WITH ANY ACTIVITY AND AT HS) Pneumonia, COPD Currently Using CPAP: No Currently Using BIPAP: No Cardiac: Yes (BRADYCARDIA) Coronary Artery Disease, Heart Attack, High Cholesterol, Hypertension Neurological: Yes Stroke Reproductive Disorders: No Sexually Transmitted Disease: No HIV/AIDS: No Genitourinary: No Gastrointestinal: Yes Gastroesophageal Reflux, Esophagitis, Hiatal Hernia Musculoskeletal: Yes Arthritis, Chronic Back Pain Endocrine: Yes Hypothyroidsim, Diabetes, Non-Insulin dep HEENT: No Cancer: No Psychosocial: No Integumentary: No Blood Disorders: No Adverse Reaction/Blood Tranf: No Family Medical History Arthritis 19 FATHER Asthma 19 MOTHER Cardiovascular disease 19 MOTHER G8 BROTHER G8 SISTER G8 SISTER G8 SISTER Cataracts 19 FATHER Diabetes mellitus 19 MOTHER G8 BROTHER G8 SISTER G8 SISTER G8 SISTER Hypertension 19 MOTHER Myocardial infarction 19 MOTHER G8 SISTER G8 SISTER Parkinson's disease G8 BROTHER Prostate cancer 19 FATHER Respiratory disorder G8 BROTHER Thyroid disease 19 MOTHER Physical Exam Vital Signs - First Documented 10/16/20 15:02 Temp 36.3 Pulse 65 Resp 22 B/P (MAP) 127/100 (109) Pulse Ox 100 O2 Delivery Nasal Cannula O2 Flow Rate 2.00 Capillary Refill : Less Than 3 Seconds Height: 5'0" Weight: 161lbs. 11.2oz. 73.175587yb; 30.00 BMI Method:Stated General Appearance: WD/WN, no apparent distress, other (No distress, tachypnea with respiratory rate of 22 but speaks in full sentences oxygen saturation is 99 to 100% on her baseline 2 L.) Eyes: Bilateral Eye Normal Inspection, Bilateral Eye PERRL, Bilateral Eye EOMI HEENT: PERRL/EOMI, normal ENT inspection Neck: non-tender, full range of motion Respiratory: no respiratory distress, no accessory muscle use Gastrointestinal: normal bowel sounds, non tender, soft Neurologic/Psychiatric: alert, normal mood/affect, oriented x 3 Skin: normal color, warm/dry Progress/Results/Core Measures Suspected Sepsis Recent Fever Within 48 Hours: No Infection Criteria Present: None New/Unexplained Altered Menta: No Sepsis Screen: No Definite Risk SIRS Temperature: Pulse: 65 Respiratory Rate: 22 Laboratory Tests 10/16/20 15:16: White Blood Count 4.7 Blood Pressure 127 /100 Mean: 109 Laboratory Tests 10/16/20 15:16: Creatinine 0.64, Platelet Count 239, Total Bilirubin 0.3 Results/Orders Lab Results Laboratory Tests Test 10/16/20 15:16 10/16/20 16:00 Range/Units White Blood Count 4.7 4.3-11.0 10^3/uL Red Blood Count 3.91 3.80-5.11 10^6/uL Hemoglobin 11.2 L 11.5-16.0 g/dL Hematocrit 36 35-52 % Mean Corpuscular Volume 92 80-99 fL Mean Corpuscular Hemoglobin 29 25-34 pg Mean Corpuscular Hemoglobin Concent 31 L 32-36 g/dL Red Cell Distribution Width 14.0 10.0-14.5 % Platelet Count 239 130-400 10^3/uL Mean Platelet Volume 10.5 9.0-12.2 fL Immature Granulocyte % (Auto) 0 % Neutrophils (%) (Auto) 58 42-75 % Lymphocytes (%) (Auto) 32 12-44 % Monocytes (%) (Auto) 9 0-12 % Eosinophils (%) (Auto) 0 0-10 % Basophils (%) (Auto) 0 0-10 % Neutrophils # (Auto) 2.7 1.8-7.8 10^3/uL Lymphocytes # (Auto) 1.5 1.0-4.0 10^3/uL Monocytes # (Auto) 0.4 0.0-1.0 10^3/uL Eosinophils # (Auto) 0.0 0.0-0.3 10^3/uL Basophils # (Auto) 0.0 0.0-0.1 10^3/uL Immature Granulocyte # (Auto) 0.0 0.0-0.1 10^3/uL Sodium Level 141 135-145 MMOL/L Potassium Level 3.3 L 3.6-5.0 MMOL/L Chloride Level 103 98-107 MMOL/L Carbon Dioxide Level 28 21-32 MMOL/L Anion Gap 10 5-14 MMOL/L Blood Urea Nitrogen 8 7-18 MG/DL Creatinine 0.64 0.60-1.30 MG/DL Estimat Glomerular Filtration Rate > 60 BUN/Creatinine Ratio 13 Glucose Level 150 H 70-105 MG/DL Calcium Level 8.6 8.5-10.1 MG/DL Corrected Calcium 8.8 8.5-10.1 MG/DL Total Bilirubin 0.3 0.1-1.0 MG/DL Aspartate Amino Transf (AST/SGOT) 19 5-34 U/L Alanine Aminotransferase (ALT/SGPT) 17 0-55 U/L Alkaline Phosphatase 42 40-136 U/L B-Type Natriuretic Peptide 123.5 H <100.0 PG/ML Total Protein 7.0 6.4-8.2 GM/DL Albumin 3.7 3.2-4.5 GM/DL Procalcitonin 0.05 <0.10 NG/ML My Orders Orders - NALLELY BOLES APRN Cbc With Automated Diff (10/16/20 15:14) Comprehensive Metabolic Panel (10/16/20 15:14) BNP (10/16/20 15:14) Ekg Tracing (10/16/20 15:14) Chest 1 View, Ap/Pa Only (10/16/20 15:14) Ed Iv/Invasive Line Start (10/16/20 15:14) Fibrin Degradation Products (10/16/20 15:14) Procalcitonin (Pct) (10/16/20 15:14) Arterial Blood Gas (10/16/20 15:14) Albuterol Inhaler (Ventolin Hfa) (10/16/20 18:00) Vital Signs/I&O 10/16/20 15:02 Temp 36.3 Pulse 65 Resp 22 B/P (MAP) 127/100 (109) Pulse Ox 100 O2 Delivery Nasal Cannula O2 Flow Rate 2.00 Capillary Refill : Less Than 3 Seconds Blood Pressure Mean: 109 Diagnostic Imaging Diagonstic Imaging: Xray Plain Films/CT/US/NM/MRI: chest Comments NAME: VINAY KAY MED REC#: [id number] PT STATUS: REG ER : 1945 PHYSICIAN: NALLELY BOLES APRN ADMIT DATE: 10/16/20/ER Draft Date of Exam:10/16/20 CHEST 1 VIEW, AP/PA ONLY INDICATION: Shortness of breath, COVID positive. TECHNIQUE: Frontal chest obtained at 03:34 p.m. and compared to 01/14/2019. FINDINGS: There is cardiomegaly with tortuous aorta. There is central vascular congestion. There are some chronic-appearing increased interstitial markings which are similar to the prior study. There is no definite new infiltrate or pneumothorax or pleural fluid. IMPRESSION: Cardiomegaly. Mild central vascular congestion, increased compared to the prior study. There are chronic-appearing increased basilar markings but no definite new pulmonary infiltrate. Dictated on workstation # [id number] Dict: 10/16/20 1539 Trans: 10/16/20 1543 [id number] Interpreted by: MITCH ZHU MD Electronically signed by: Departure Communication (Admissions) Time/Spoke to Admitting Phy: 16:[address] Whitt. Patient's labs are unremarkable. Chest x-ray is clear, oxygen saturation 99% on her baseline 2 L, however she is tachypneic and I would suspect she would benefit from being in the hospital given her frail overall status and likelihood of failure of outpatient treatment. Given her respiratory status she could decompensate quickly. Impression Primary Impression: COPD exacerbation Additional Impression: COVID-19 Disposition: ADMITTED INPATIENT Condition: Stable Admissions Decision to Admit Reason: Admit from ER (General) Decision to Admit/Date: Oct 16, 2020 Time/Decision to Admit Time: 16:19 Departure-Patient Inst. Referrals: [facility] (PCP/Family) Primary Care Physician NALLELY BOLES APRN Oct 16, 2020 15:35
[2020-10-16 15:37] LABS: ALKALINE PHOSPHATASE 42 U/L (40-136); CREATININE SERUM 0.64 MG/DL (0.60-1.30); GFR ESTIMATED > 60
[2020-10-16 15:38] LABS: BUN/CREATININE RATIO 13
[2020-10-16 15:40] LABS: ALANINE AMINOTRANSFERASE 17 U/L (0-55)
--- NOTE | 2020-10-16 15:43 | Diagnostic Imaging Report ---
INDICATION: Shortness of breath, COVID positive. TECHNIQUE: Frontal chest obtained at 03:34 p.m. and compared to 01/14/2019. FINDINGS: There is cardiomegaly with tortuous aorta. There is central vascular congestion. There are some chronic-appearing increased interstitial markings which are similar to the prior study. There is no definite new infiltrate or pneumothorax or pleural fluid. IMPRESSION: Cardiomegaly. Mild central vascular congestion, increased compared to the prior study. There are chronic-appearing increased basilar markings but no definite new pulmonary infiltrate. Dictated by: Dictated on workstation # [id number]
[2020-10-16 16:15] LABS: ABG BASE EXCESS 3.9 MMOL/L (-2.5-2.5); ABG OXYGEN SATURATION 96 % (94-100); ABG PCO2 45 MMHG (35-45); ABG PH 7.41 (7.37-7.43); ABG PO2 110 MMHG (79-93); ABG TCO2 29.6 MMOL/L (21.0-31.0)
[2020-10-16 16:19] LABS: PATIENT TEMP 36.3
[2020-10-16 16:20] LABS: VENTILATOR NO
--- NOTE | 2020-10-16 17:15 | NUR ---
VINAY KAY admitted to room 425-1, with an admitting diagnosis of HYPOXIA/COVID, on 10/16/20 from ED via , accompanied by STAFF.VINAY KAY introduced to surroundings, call light, bed controls, phone, TV, temperature control, lights, meal times, smoking policy, visitor policy, side rail policy, bathrooms and showers. Patient Rights given to patient in the handbook. VINAY KAY verbalizes understanding that [facility] is not responsible for the loss or damage to any personal effects or valuables that are kept in the patients posession during their hospitalization.
[2020-10-16] MEDS ORDERED: ONDANSETRON 4 MG/2 ML (SDV) Z0FRAN IV PRN (17:45)
[2020-10-16 17:53] VITALS: BP 142/92
[2020-10-16] MEDS ORDERED: RT-ALBUTEROL INHALER HFA (VENTOLIN HFA) 18 GM IH SCH (18:00)
[2020-10-16] MEDS ORDERED: HYDROcodone/APAP 5 MG/325 MG (LORTAB) TAB PO PRN (18:00)
[2020-10-16] MEDS ORDERED: EMPA10TA PO (18:07)
[2020-10-16] MEDS ORDERED: FLUTICASONE NASAL SPRAY (FLONASE) 16 GM BTL NS PRN (18:15)
[2020-10-16] MEDS ORDERED: MECLIZINE HCL PO PRN (18:15)
[2020-10-16] MEDS ORDERED: CATHETER FLUSH 10 ML SYR IV PRN (18:15)
[2020-10-16] MEDS: dexAMETHasone 6 MG TAB (DECADRON) PO SCH (18:33)
[2020-10-16] MEDS: ENOXAPARIN 40 MG/0.4 ML (LOVENOX) SYR SC SCH (18:33)
[2020-10-16] MEDS ORDERED: MECLIZINE 25 MG (ANTIVERT) TAB PO PRN (19:00)
[2020-10-16] MEDS: RT-ALBUTEROL INHALER HFA (VENTOLIN HFA) 18 GM IH SCH (19:14)
[2020-10-16 19:46] VITALS: BP 122/80
[2020-10-16 20:14] VITALS: BP 127/100
[2020-10-16] MEDS: RANOLAZINE ER 500 MG TAB (RANEXA) PO SCH (20:20)
[2020-10-16] MEDS ORDERED: RT-ALBUTEROL INHALER HFA (VENTOLIN HFA) 18 GM IH PRN (20:30)
[2020-10-16] MEDS: ACETAMINOPHEN 500 MG TAB (TYLENOL) PO PRN (20:33)
[2020-10-16] MEDS ORDERED: DOCUSATE SODIUM 100 MG (COLACE) CAP PO PRN (21:00)
[2020-10-16] MEDS ORDERED: diphenhydrAMINE 25 MG TAB (BENADRYL) PO PRN (21:00)
[2020-10-16] MEDS ORDERED: NON-FORMULARY MEDICATION 1 EA EA (Ranolazine (Ranexa) 1,000 MG) PO SCH (21:00)
[2020-10-16] MEDS ORDERED: LOPERAMIDE 2 MG (IMODIUM) TABLET PO PRN (21:00)
[2020-10-16] MEDS ORDERED: MELATONIN 3 MG TABLET PO PRN (21:00)
[2020-10-16] MEDS ORDERED: ALPRAZolam 0.25 MG (XANAX) TAB PO PRN (21:00)
[2020-10-16] MEDS ORDERED: CALCIUM CARBONATE 500 MG (TUMS) TAB.CHEW PO PRN (21:00)
[2020-10-16] MEDS: CATHETER FLUSH 10 ML SYR IV SCH (22:26)
[2020-10-16] MEDS: SENNA W/DOCUSATE (SENOKOT S) TABLET PO SCH (22:28)
[2020-10-17 00:46] VITALS: BP 115/56
[2020-10-17 04:17] VITALS: BP 123/60
[2020-10-17] MEDS: CATHETER FLUSH 10 ML SYR IV SCH ×3 (05:52→21:33)
[2020-10-17] MEDS: LEVOTHYROXINE 112 MCG (LEVOTHROID) TAB PO SCH (05:52)
--- NOTE | 2020-10-17 05:57 | History & Physical-Hospitalist ---
History of Present Illness HPI/Chief Complaint CC: SOB HPI: This is a 75yoWF with a past medical history of 2 L oxygen dependent COPD, DM and other comorbidities who presented to the ER after Dr. Yoli Matthews called me after seeing her in the clinic because of diagnosis of Covid at high risk for decompensation. She was assessed and deemed a candidate for convale scent plasma and Remdesivir along with Decadron and close monitoring for hypoglycemia. Currently she is doing much better and she feels like she is comfortable on her 2 L of oxygen she takes continuously,. Overall doing very well. Source: patient Exam Limitations: no limitations Date Seen 10/17/20 Time Seen by a Provider: 11:00 Attending Physician Renae Whitt DO [facility] Referring Physician Date of Admission Oct 16, 2020 at 16:12 Home Medications & Allergies Home Medications Reviewed patient Home Medication Reconciliation performed by pharmacy medication reconciliations offshore wind turbine technician and/or nursing. Patients Allergies have been reviewed. Allergies Allergies Coded Allergies fentanyl (Unverified Allergy, Intermediate, SEVERE NAUSEA/VOMITTING, 06/07/11) morphine (Verified Allergy, Unknown, 07/19/18) tramadol (Verified Allergy, Unknown, 09/01/08) Past Qlpwrhg-Lygkwf-Xxemie Hx Past Med/Social Hx: Reviewed Nursing Past Med/Soc Hx, Reviewed and Corrections made Patient Social History Marrital Status: single Employed/Student: retired Alcohol Use: Denies Use Recreational Drug Use: No Smoking Status: Former Smoker Former Smoker, Quit: May 19, 2009 Type Used: Cigarettes 2nd Hand Smoke Exposure: No Recent Foreign Travel: No Contact w/other who traveled: No Recent Hopitalizations: Yes Recent Infectious Disease Expo: No Immunizations Up To Date Tetanus Booster (TDap): Unknown Pediatric: Yes Date of Pneumonia Vaccine: Aug 03, 2017 Date of Influenza Vaccine: Aug 16, 2020 Seasonal Allergies Seasonal Allergies: No Past Medical History Surgeries: Cardiac, CABG, Coronary Stent, Gallbladder, Hysterectomy Currently Using CPAP: No Currently Using BIPAP: No Cardiac: Coronary Artery Disease, Heart Attack, High Cholesterol, Hypertension Neurological: Stroke Reproductive: No Sexually Transmitted Disease: No HIV/AIDS: No Gastrointestinal: Gastroesophageal Reflux, Esophagitis, Hiatal Hernia Musculoskeletal: Arthritis, Chronic Back Pain Endocrine: Hypothyroidsim, Diabetes, Non-Insulin dep History of Blood Disorders: No Adverse Reaction to Blood Vela: No Family History Arthritis 19 FATHER Asthma 19 MOTHER Cardiovascular disease 19 MOTHER G8 BROTHER G8 SISTER G8 SISTER G8 SISTER Cataracts 19 FATHER Diabetes mellitus 19 MOTHER G8 BROTHER G8 SISTER G8 SISTER G8 SISTER Hypertension 19 MOTHER Myocardial infarction 19 MOTHER G8 SISTER G8 SISTER Parkinson's disease G8 BROTHER Prostate cancer 19 FATHER Respiratory disorder G8 BROTHER Thyroid disease 19 MOTHER Review of Systems Constitutional: see HPI, malaise, weakness Respiratory: cough, dyspnea on exertion Physical Exam Physical Exam Vital Signs Vital Signs - First Documented 10/16/20 10/16/20 15:02 20:14 Temp 36.3 Pulse 65 Resp 22 B/P (MAP) 127/100 (109) Pulse Ox 100 O2 Delivery Nasal Cannula O2 Flow Rate 2.00 FiO2 28 Capillary Refill : Less Than 3 Seconds Height, Weight, BMI Height: 5'0" Weight: 161lbs. 11.2oz. 73.539607mi; 30.44 BMI Method:Stated General Appearance: No Apparent Distress, Chronically ill Eyes: Right Eye Normal Inspection, Right Eye PERRL HEENT: PERRL/EOMI, Normal ENT Inspection, Pharynx Normal, Moist Mucous Membranes Neck: Full Range of Motion, Normal Inspection, Non Tender Respiratory: Chest Non Tender, Lungs Clear, No Accessory Muscle Use, No Respiratory Distress, Decreased Breath Sounds Cardiovascular: Regular Rate, Rhythm, No Edema, No Gallop, No JVD, No Murmur, Normal Peripheral Pulses Gastrointestinal: Normal Bowel Sounds, No Organomegaly, No Pulsatile Mass, Non Tender, Soft Back: Normal Inspection, No CVA Tenderness, No Vertebral Tenderness Extremity: Normal Capillary Refill, Normal Inspection, Normal Range of Motion, Non Tender, No Calf Tenderness, No Pedal Edema Neurologic/Psychiatric: Alert, Oriented x3, No Motor/Sensory Deficits, Depressed Affect Skin: Normal Color, Warm/Dry Lymphatic: No Adenopathy Results Results/Procedures Labs Laboratory Tests 10/16/20 15:16 10/17/20 06:26 Patient resulted labs reviewed. Assessment/Plan Admission Diagnosis Assessment: COVID-19 PNA AECOPD O2 dependence at home CAD HTN HLP Plan: COVID-19 treatment Abx Lovenox Antivirals CVP Admission Status: Inpatient Order (span 2 midnights) Reason for Inpatient Admission: COVID 19 PNA Diagnosis/Problems Diagnosis/Problems (1) COVID-19 Status: Acute (2) COPD exacerbation Status: Acute (3) CAD (coronary artery disease) Status: Chronic (4) HLD (hyperlipidemia) Status: Chronic (5) Supplemental oxygen dependent Status: Chronic (6) DVT prophylaxis Status: Acute (7) COPD (chronic obstructive pulmonary disease) Status: Chronic (8) Hypothyroidism Status: Chronic (9) Mixed hyperlipidemia Status: Chronic (10) HTN (hypertension) Status: Chronic (11) 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
[2020-10-17 06:43] LABS: BASOPHILS % (AUTO) 0 % (0-10); EOSINOPHILS % (AUTO) 0 % (0-10); HEMATOCRIT 37 % (35-52); HEMOGLOBIN 11.3 g/dL (11.5-16.0); LYMPHOCYTES % (AUTO) 30 % (12-44); MEAN CORPUSCULAR HEMOGLOBIN 29 pg (25-34); MEAN CORPUSCULAR HGB CONC 31 g/dL (32-36); MEAN CORPUSCULAR VOLUME 94 fL (80-99); MEAN PLATELET VOLUME 10.1 fL (9.0-12.2); MONOCYTES # (AUTO) 0.1 10^3/uL (0.0-1.0); MONOCYTES % (AUTO) 4 % (0-12); NEUTROPHILS # (AUTO) 2.3 10^3/uL (1.8-7.8); NEUTROPHILS % (AUTO) 66 % (42-75); PLATELET COUNT 256 10^3/uL (130-400); WHITE BLOOD COUNT 3.5 10^3/uL (4.3-11.0)
[2020-10-17 06:52] LABS: ALBUMIN 3.8 GM/DL (3.2-4.5); CHLORIDE 106 MMOL/L (98-107); POTASSIUM 3.8 MMOL/L (3.6-5.0); SODIUM 141 MMOL/L (135-145)
[2020-10-17 06:54] LABS: GLUCOSE 214 MG/DL (70-105); TOTAL PROTEIN 7.6 GM/DL (6.4-8.2)
[2020-10-17 06:56] LABS: BILIRUBIN,TOTAL 0.3 MG/DL (0.1-1.0); CARBON DIOXIDE 26 MMOL/L (21-32)
[2020-10-17 06:58] LABS: ALKALINE PHOSPHATASE 49 U/L (40-136); CREATININE SERUM 0.69 MG/DL (0.60-1.30); GFR ESTIMATED > 60
[2020-10-17 06:59] LABS: BUN/CREATININE RATIO 16
[2020-10-17 07:01] LABS: ALANINE AMINOTRANSFERASE 14 U/L (0-55)
[2020-10-17] MEDS ORDERED: sitaGLIPtin/METFORMIN 50/1000 MG (JANUMET) NON FORM PO SCH (08:00)
[2020-10-17 08:14] VITALS: BP 134/64
[2020-10-17] MEDS: FENOFIBRATE 134 MG (LOFIBRA) CAPSULE PO SCH (08:32)
[2020-10-17] MEDS: dexAMETHasone 6 MG TAB (DECADRON) PO SCH (08:32)
[2020-10-17] MEDS: RANOLAZINE ER 500 MG TAB (RANEXA) PO SCH ×2 (08:32→21:32)
[2020-10-17] MEDS: metFORMIN 500 MG (GLUCOPHAGE) TAB PO SCH ×2 (08:33→17:04)
[2020-10-17] MEDS: LINAGLIPTIN (TRADJENTA) 5 MG TABLET PO SCH (08:33)
[2020-10-17] MEDS: SENNA W/DOCUSATE (SENOKOT S) TABLET PO SCH ×2 (08:33→21:29)
[2020-10-17] MEDS: CLOPIDOGREL 75 MG (PLAVIX) TABLET PO SCH (08:34)
[2020-10-17] MEDS: PANTOPRAZOLE 40 MG (PROTONIX) TAB PO SCH (08:34)
[2020-10-17] MEDS: ISOSORBIDE MONONITRATE 60 MG (IMDUR) TAB PO SCH (08:34)
[2020-10-17] MEDS: ASPIRIN E.C. 81 MG (ECOTRIN) TAB PO SCH (08:34)
[2020-10-17] MEDS: LOSARTAN 100 MG (COZAAR) TABLET PO SCH (08:34)
[2020-10-17] MEDS ORDERED: NON-FORMULARY MEDICATION 1 EA EA (Fenofibrate 160 MG) PO SCH (09:00)
[2020-10-17] MEDS: RT-ALBUTEROL INHALER HFA (VENTOLIN HFA) 18 GM IH SCH ×5 (09:24→19:43)
[2020-10-17] MEDS: ACETAMINOPHEN 500 MG TAB (TYLENOL) PO PRN ×2 (11:00→21:44)
[2020-10-17] MEDS ORDERED: ATOR80TA76 PO (11:34)
[2020-10-17] MEDS ORDERED: TIOT4MIS2 INH (11:34)
[2020-10-17] MEDS ORDERED: NYST15PO4 TOP (11:34)
[2020-10-17] MEDS ORDERED: AMLO2.5T4 PO (11:34)
[2020-10-17] MEDS ORDERED: BUDE10.2 INH (11:34)
[2020-10-17] MEDS ORDERED: VALS160T29 PO (11:34)
--- NOTE | 2020-10-17 11:35 | NUR ---
SPOKE WITH THE PT (I CALLED HER ROOM PHONE) AND WENT THRU THE EXT MED HISTORY TO COMPLETE THE MED REC ACCORDING TO THE PT SHE HAS A MED LIST ON HER PHONE THAT SHE READ OFF TO ME, ALL HER INFORMATION MATCHED THE EXT MED OTC MEDS: MECLIZINE ASPIRIN 81 TYLENOL FLONASE Addendum: 10/17/20 at 1139 by ILA COLEMAN CPhT THERE WERE CHANGED THAT I MADE TO THE MED REC AFTER THE MEDICATIONS WERE CONTINUED LAST NIGHT: LOSARTAN 100MG WAS CONTINUED BUT PT IS NO LONGER TAKING ATORVASTATIN 40MG WAS CONTINUED BUT PT IS NOW TAKING 80MG FENOFIBRATE AND ATORVASTATIN WERE BOTH CONTINUED DAILY HOWEVER PT TAKING BOTH HS I ADDED THE FOLLOWING MEDICATIONS: NYSTATIN POWDER AMLODIPINE 2.5MG SPIRIVA SYMBICORT VALSARTAN
[2020-10-17 12:07] VITALS: BP 116/65
--- NOTE | 2020-10-17 14:38 | NUR ---
"RD ASSESSMENT PMHx: CAD; heart attack; hypercholesterolemia; HTN; stroke; GERD; esophagitis; hiatal hernia; hypothyroidism; DM; PT INTERACTION: Note pt is currently in COVID isolation, per chart review. Note all diet information for nutrition assessment is per Pernell RN or per chart review. Pernell states current appetite appears good. Note PO intake 100% x1meal, per chart review. Pernell states no issues with nausea, vomiting, constipation, or diarrhea that he is aware of, and that her last BM was 10/16. Note pt currently on bowel regimen of senna BID, per chart review. Note recent 1# wt gain x3mon, per chart review. Note unable to determine current level of DM management, and unable to determine recent HbA1c, per chart review. ABNORMAL NUTRITION-RELATED LAB VALUES LOW: HIGH: glu 214; Est. kcal needs: [id number] kcal | 20-25 kcal/kg Est. Pro needs: 57-71 g Pro | 0.8-1.0 g Pro/kg PES STATEMENT: Given current appetite and PO intake, no nutrition diagnosis at this time (NO-1.1). INTERVENTION: Recommend switching to consistent CHO diet, as pt has hx of DM. Did not offer diet education on DM management d/t isolation precautions. Will continue to follow and reassess as pt needs, intake, and status change. Sonia NUNEZ, MS RD LD [phone] cell"
[2020-10-17 16:59] VITALS: BP 120/59
[2020-10-17] MEDS: ENOXAPARIN 40 MG/0.4 ML (LOVENOX) SYR SC SCH (17:04)
[2020-10-17 19:50] VITALS: BP 119/53
[2020-10-18] MEDS: RT-ALBUTEROL INHALER HFA (VENTOLIN HFA) 18 GM IH SCH ×6 (02:41→21:58)
[2020-10-18 03:41] VITALS: BP 124/57
[2020-10-18] MEDS: ACETAMINOPHEN 500 MG TAB (TYLENOL) PO PRN ×2 (03:50→18:31)
[2020-10-18 06:12] LABS: BASOPHILS % (AUTO) 0 % (0-10); EOSINOPHILS % (AUTO) 0 % (0-10); HEMATOCRIT 30 % (35-52); HEMOGLOBIN 9.5 g/dL (11.5-16.0); LYMPHOCYTES # (AUTO) 1.6 10^3/uL (1.0-4.0); LYMPHOCYTES % (AUTO) 24 % (12-44); MEAN CORPUSCULAR HEMOGLOBIN 29 pg (25-34); MEAN CORPUSCULAR HGB CONC 32 g/dL (32-36); MEAN CORPUSCULAR VOLUME 92 fL (80-99); MEAN PLATELET VOLUME 10.5 fL (9.0-12.2); MONOCYTES # (AUTO) 0.5 10^3/uL (0.0-1.0); MONOCYTES % (AUTO) 7 % (0-12); NEUTROPHILS # (AUTO) 4.5 10^3/uL (1.8-7.8); NEUTROPHILS % (AUTO) 68 % (42-75); PLATELET COUNT 251 10^3/uL (130-400); WHITE BLOOD COUNT 6.6 10^3/uL (4.3-11.0)
[2020-10-18 06:29] LABS: ALBUMIN 3.2 GM/DL (3.2-4.5)
[2020-10-18 06:30] LABS: CHLORIDE 108 MMOL/L (98-107); SODIUM 142 MMOL/L (135-145)
[2020-10-18 06:31] LABS: CALCIUM 8.1 MG/DL (8.5-10.1)
[2020-10-18 06:32] LABS: GLUCOSE 278 MG/DL (70-105); TOTAL PROTEIN 6.2 GM/DL (6.4-8.2)
[2020-10-18 06:33] LABS: CARBON DIOXIDE 25 MMOL/L (21-32)
[2020-10-18 06:34] LABS: BILIRUBIN,TOTAL 0.2 MG/DL (0.1-1.0)
[2020-10-18 06:35] LABS: ALKALINE PHOSPHATASE 39 U/L (40-136)
[2020-10-18 06:36] LABS: CREATININE SERUM 0.74 MG/DL (0.60-1.30); GFR ESTIMATED > 60
[2020-10-18] MEDS: LEVOTHYROXINE 112 MCG (LEVOTHROID) TAB PO SCH (06:36)
[2020-10-18] MEDS: CATHETER FLUSH 10 ML SYR IV SCH ×3 (06:36→21:28)
[2020-10-18 06:37] LABS: BUN/CREATININE RATIO 26
[2020-10-18 06:39] LABS: ALANINE AMINOTRANSFERASE 10 U/L (0-55)
--- NOTE | 2020-10-18 07:53 | NUR ---
DR MARY CONTACTED REGARDING PT BLOOD SUGARS, ORDERED ACCUCHECKS TADEO, SSI-A
[2020-10-18 08:00] VITALS: BP 161/74
--- NOTE | 2020-10-18 09:26 | Progress Note - Hospitalist ---
Subjective HPI/CC On Admission Date Seen by Provider: Oct 18, 2020 Time Seen by Provider: 10:00 CC: SOB HPI: This is a 75yoWF with a past medical history of 2 L oxygen dependent COPD, DM and other comorbidities who presented to the ER after Dr. Yoli Matthews called me after seeing her in the clinic because of diagnosis of Covid at high risk for decompensation. She was assessed and deemed a candidate for convalescent plasma and Remdesivir along with Decadron and close monitoring for hypoglycemia. Currently she is doing much better and she feels like she is comfortable on her 2 L of oxygen she takes continuously,. Overall doing very well. Subjective/Events-last exam Pt doing pretty well Maintained on 2 liters but she actually has it off now Maintained on Remdesivir and Convalescent Plasma along with Decadron Increase insulin due to hyperglycemia due to Decadron Overall doing pretty well now Review of Systems General: Fatigue, Malaise Pulmonary: Dyspnea Objective Exam Vital Signs Vital Signs Date Time Temp Pulse Resp B/P (MAP) Pulse Ox O2 Delivery O2 Flow Rate FiO2 10/19/20 04:02 36.2 67 20 148/71 (96) 99 Nasal Cannula 2.00 10/16/20 20:14 28 Capillary Refill : Less Than 3 Seconds General Appearance: No Apparent Distress, WD/WN, Chronically ill Respiratory: Chest Non Tender, Lungs Clear, Normal Breath Sounds, No Accessory Muscle Use, No Respiratory Distress, Decreased Breath Sounds Cardiovascular: Regular Rate, Rhythm, No Edema, No Gallop, No JVD, No Murmur, Normal Peripheral Pulses Neurologic/Psychiatric: Alert, Oriented x3, No Motor/Sensory Deficits, Normal Mood/Affect Results/Procedures Lab Laboratory Tests 10/18/20 05:48 Patient resulted labs reviewed. Assessment/Plan Assessment and Plan Assess & Plan/Chief Complaint Assessment: COVID-19 PNA AECOPD O2 dependence at home CAD HTN HLP Plan: COVID-19 treatment with Decadron Abx Lovenox Antivirals not required CVP 10/18/20: COVID-19 treatment with Decadron and CVP Monitor O2 sats Increase insulin Diagnosis/Problems Diagnosis/Problems (1) COVID-19 Status: Acute (2) COPD exacerbation Status: Acute (3) CAD (coronary artery disease) Status: Chronic (4) HLD (hyperlipidemia) Status: Chronic (5) Supplemental oxygen dependent Status: Chronic (6) DVT prophylaxis Status: Acute (7) COPD (chronic obstructive pulmonary disease) Status: Chronic (8) Hypothyroidism Status: Chronic (9) Mixed hyperlipidemia Status: Chronic (10) HTN (hypertension) Status: Chronic (11) Non-insulin dependent type 2 diabetes mellitus Status: Chronic (12) History of coronary artery bypass graft x 3 Status: Chronic Clinical Quality Measures DVT/VTE Risk/Contraindication: Risk Factor Score Per Nursin RFS Level Per Nursing on Admit: 4+=Very High CHAPIS MARY DO Oct 18, 2020 09:26
[2020-10-18] MEDS: FENOFIBRATE 134 MG (LOFIBRA) CAPSULE PO SCH (09:43)
[2020-10-18] MEDS: ISOSORBIDE MONONITRATE 60 MG (IMDUR) TAB PO SCH (09:43)
[2020-10-18] MEDS: metFORMIN 500 MG (GLUCOPHAGE) TAB PO SCH ×2 (09:44→18:30)
[2020-10-18] MEDS: dexAMETHasone 6 MG TAB (DECADRON) PO SCH (09:44)
[2020-10-18] MEDS: RANOLAZINE ER 500 MG TAB (RANEXA) PO SCH ×2 (09:44→21:26)
[2020-10-18] MEDS: LOSARTAN 100 MG (COZAAR) TABLET PO SCH (09:44)
[2020-10-18] MEDS: LINAGLIPTIN (TRADJENTA) 5 MG TABLET PO SCH (09:44)
[2020-10-18] MEDS: CLOPIDOGREL 75 MG (PLAVIX) TABLET PO SCH (09:44)
[2020-10-18] MEDS: PANTOPRAZOLE 40 MG (PROTONIX) TAB PO SCH ×2 (09:44→18:31)
[2020-10-18] MEDS: ASPIRIN E.C. 81 MG (ECOTRIN) TAB PO SCH (09:44)
[2020-10-18] MEDS: SENNA W/DOCUSATE (SENOKOT S) TABLET PO SCH ×2 (09:45→21:27)
[2020-10-18] MEDS: ENOXAPARIN 40 MG/0.4 ML (LOVENOX) SYR SC SCH ×2 (09:46→21:26)
[2020-10-18 12:00] VITALS: BP 150/76
[2020-10-18] MEDS: inSUlin ASPART (NovoLOG) 1 UNIT/0.01 ML (CHARGE PER UNIT) SC SCH ×3 (12:09→21:27)
--- NOTE | 2020-10-18 15:46 | NUR ---
Discussed continued care plans with pt's daughter. Pt lives alone but her granddaughter lives with her and daughter is her paid caregiver. She is on 2 liters of oxygen at home. Daughter states she will have much support upon discharge from family.
[2020-10-18 16:35] VITALS: BP 131/31
[2020-10-18 20:29] VITALS: BP 138/62
[2020-10-18 23:39] VITALS: BP 106/56
[2020-10-19] VITALS (7 sets, daily range): BP systolic 82–158; BP diastolic 36–71
[2020-10-19] MEDS: RT-ALBUTEROL INHALER HFA (VENTOLIN HFA) 18 GM IH SCH ×6 (02:33→22:24)
[2020-10-19 05:45] LABS: BASOPHILS % (AUTO) 0 % (0-10); EOSINOPHILS % (AUTO) 0 % (0-10); HEMATOCRIT 32 % (35-52); HEMOGLOBIN 10.1 g/dL (11.5-16.0); LYMPHOCYTES # (AUTO) 1.4 10^3/uL (1.0-4.0); LYMPHOCYTES % (AUTO) 19 % (12-44); MEAN CORPUSCULAR HEMOGLOBIN 29 pg (25-34); MEAN CORPUSCULAR HGB CONC 32 g/dL (32-36); MEAN CORPUSCULAR VOLUME 92 fL (80-99); MEAN PLATELET VOLUME 10.3 fL (9.0-12.2); MONOCYTES # (AUTO) 0.4 10^3/uL (0.0-1.0); MONOCYTES % (AUTO) 5 % (0-12); NEUTROPHILS # (AUTO) 5.6 10^3/uL (1.8-7.8); NEUTROPHILS % (AUTO) 75 % (42-75); PLATELET COUNT 261 10^3/uL (130-400); WHITE BLOOD COUNT 7.5 10^3/uL (4.3-11.0)
--- NOTE | 2020-10-19 05:56 | Progress Note - Hospitalist ---
Subjective HPI/CC On Admission Date Seen by Provider: Oct 19, 2020 Time Seen by Provider: 10:00 CC: SOB HPI: This is a 75yoWF with a past medical history of 2 L oxygen dependent COPD, DM and other comorbidities who presented to the ER after Dr. Yoli Matthews called me after seeing her in the clinic because of diagnosis of Covid at high risk for decompensation. She was assessed and deemed a candidate for convalescent plasma and Remdesivir along with Decadron and close monitoring for hypoglycemia. Currently she is doing much better and she feels like she is comfortable on her 2 L of oxygen she takes continuously,. Overall doing very well. Subjective/Events-last exam Major events occurred today Changed patient over to observation in prep for DC today and then patient became hypoxic and hypotensive and had elevated lactic acid. Patient a bit clammy on exam Denied chest pain or dyspnea CXR revealed pneumonia so abx initiated Conferred with Dr Gutierrez who agreed with transfer to [facility] since no ICU bed available and initiated aggressive IVF 30cc/kg Reviewed all meds in transfer to [facility] Review of Systems General: Night Sweats, Fatigue, Malaise Focused Exam Lactate Level 10/19/20 18:05: Lactic Acid Level 2.06*H 10/19/20 20:50: Lactic Acid Level 2.24*H 10/19/20 22:55: Lactic Acid Level 1.32 Objective Exam Vital Signs Vital Signs Date Time Temp Pulse Resp B/P (MAP) Pulse Ox O2 Delivery O2 Flow Rate FiO2 10/20/20 03:12 35.8 56 22 139/48 (78) 99 Nasal Cannula 2.00 10/16/20 20:14 28 Capillary Refill : Less Than 3 Seconds General Appearance: Anxious, Chronically ill, Mild Distress Respiratory: No Accessory Muscle Use, No Respiratory Distress, Decreased Breath Sounds Cardiovascular: Regular Rate, Rhythm Neurologic/Psychiatric: Alert, Oriented x3, No Motor/Sensory Deficits, Normal Mood/Affect Results/Procedures Lab Laboratory Tests 10/19/20 05:40 10/19/20 14:00 10/20/20 03:06 Patient resulted labs reviewed. 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 Diagnosis/Problems Diagnosis/Problems (1) COVID-19 Status: Acute (2) COPD exacerbation Status: Acute (3) CAD (coronary artery disease) Status: Chronic (4) HLD (hyperlipidemia) Status: Chronic (5) Supplemental oxygen dependent Status: Chronic (6) DVT prophylaxis Status: Acute (7) COPD (chronic obstructive pulmonary disease) Status: Chronic (8) Hypothyroidism Status: Chronic (9) Mixed hyperlipidemia Status: Chronic (10) HTN (hypertension) Status: Chronic (11) Non-insulin dependent type 2 diabetes mellitus Status: Chronic (12) History of coronary artery bypass graft x 3 Status: Chronic Clinical Quality Measures DVT/VTE Risk/Contraindication: Risk Factor Score Per Nursin RFS Level Per Nursing on Admit: 4+=Very High CHAPIS MARY DO Oct 19, 2020 05:56
[2020-10-19 06:04] LABS: ALANINE AMINOTRANSFERASE 12 U/L (0-55); ALBUMIN 3.4 GM/DL (3.2-4.5); ALKALINE PHOSPHATASE 49 U/L (40-136); BILIRUBIN,TOTAL 0.3 MG/DL (0.1-1.0); BUN/CREATININE RATIO 27; CALCIUM 8.3 MG/DL (8.5-10.1); CARBON DIOXIDE 24 MMOL/L (21-32); CHLORIDE 106 MMOL/L (98-107); CREATININE SERUM 0.67 MG/DL (0.60-1.30); GFR ESTIMATED > 60; GLUCOSE 134 MG/DL (70-105); POTASSIUM 3.5 MMOL/L (3.6-5.0); SODIUM 141 MMOL/L (135-145); TOTAL PROTEIN 6.5 GM/DL (6.4-8.2)
[2020-10-19] MEDS: inSUlin ASPART (NovoLOG) 1 UNIT/0.01 ML (CHARGE PER UNIT) SC SCH ×4 (06:05→20:09)
[2020-10-19] MEDS: CATHETER FLUSH 10 ML SYR IV SCH ×3 (06:19→21:30)
[2020-10-19] MEDS: LEVOTHYROXINE 112 MCG (LEVOTHROID) TAB PO SCH (06:19)
[2020-10-19] MEDS: metFORMIN 500 MG (GLUCOPHAGE) TAB PO SCH (08:19)
[2020-10-19] MEDS: LINAGLIPTIN (TRADJENTA) 5 MG TABLET PO SCH (08:21)
[2020-10-19] MEDS: CLOPIDOGREL 75 MG (PLAVIX) TABLET PO SCH (08:21)
[2020-10-19] MEDS: LOSARTAN 100 MG (COZAAR) TABLET PO SCH (08:22)
[2020-10-19] MEDS: ISOSORBIDE MONONITRATE 60 MG (IMDUR) TAB PO SCH (08:22)
[2020-10-19] MEDS: RANOLAZINE ER 500 MG TAB (RANEXA) PO SCH ×2 (08:23→20:08)
[2020-10-19] MEDS: FENOFIBRATE 134 MG (LOFIBRA) CAPSULE PO SCH (08:23)
[2020-10-19] MEDS: ASPIRIN E.C. 81 MG (ECOTRIN) TAB PO SCH (08:23)
[2020-10-19] MEDS: dexAMETHasone 6 MG TAB (DECADRON) PO SCH (08:24)
[2020-10-19] MEDS: SENNA W/DOCUSATE (SENOKOT S) TABLET PO SCH ×2 (08:25→20:14)
[2020-10-19] MEDS: ENOXAPARIN 40 MG/0.4 ML (LOVENOX) SYR SC SCH ×2 (08:26→20:09)
[2020-10-19] MEDS: ACETAMINOPHEN 500 MG TAB (TYLENOL) PO PRN (08:29)
[2020-10-19] MEDS: IBUPROFEN 600 MG (MOTRIN) TAB PO PRN (11:06)
[2020-10-19] MEDS ORDERED: NS IV 1000 ML 1,000 ML ONE (11:30)
[2020-10-19 12:27] LABS: ABG OXYGEN SATURATION 93 % (94-100); ABG PCO2 37 MMHG (35-45); ABG PH 7.44 (7.37-7.43); ABG PO2 76 MMHG (79-93); ABG TCO2 25.5 MMOL/L (21.0-31.0); ALLENS TEST POSITIVE; PATIENT TEMP 101.4; VENTILATOR YES
[2020-10-19] MEDS ORDERED: CEFEPIME INJECTION 1,000 MG in WATER (STERILE) FOR INJECTION 10 ML IV SCH (12:30)
[2020-10-19] MEDS ORDERED: NS IV ONE (12:30)
[2020-10-19] MEDS ORDERED: VANCOMYCIN INJECTION 0.1 MG in NS (IVPB) 250 ML IV SCH (12:30)
--- NOTE | 2020-10-19 12:47 | NUR ---
CR 0.67 (AGE ADJUSTED TO 1.0); CR CL ~41; WT 70.7 KG; VANCO 1250 MG IV Q24H X 3 DAYS
--- NOTE | 2020-10-19 12:58 | NUR ---
PATIENT TO CARDIAC STEP DOWN UNIT ( ROOM 510) AT THIS TIME VIA BED, PER DR. MARY'S ORDERS AFTER HER LACTIC ACID LAB RESULTS WERE 2.31. PATIENT BEDSIDE REPORT GIVEN TO JOSH TARIQ AT THIS TIME. ALL BELONGINGS MOVED WITH PATIENT WHEN TRANSFERRED TO STEPDOWN UNIT.
--- NOTE | 2020-10-19 12:58 | NUR ---
Report from Leda MORENO/Kyle RN. Patient to room 510 with belongings. Patient oriented to room and call light.
[2020-10-19] MEDS ORDERED: VANCOMYCIN 1250 MG/NS 250 ML IVPB IV SCH ×2 (13:00)
--- NOTE | 2020-10-19 13:12 | Diagnostic Imaging Report ---
INDICATION: Covid patient fever. COMPARISON: 10/16/2020. FINDINGS: Heart size stable. Sternal wires midline. Some progressive perihilar infiltrates have occurred. Lung volumes symmetric and normal. No effusion. IMPRESSION: Increased perihilar infiltrates. Dictated by: Dictated on workstation # [id number]
[2020-10-19] MEDS: CEFEPIME INJECTION 1,000 MG in WATER (STERILE) FOR INJECTION 10 ML IV SCH ×2 (14:00→21:43)
[2020-10-19 14:21] LABS: BASOPHILS % (AUTO) 0 % (0-10); EOSINOPHILS % (AUTO) 0 % (0-10); HEMATOCRIT 29 % (35-52); HEMOGLOBIN 8.6 g/dL (11.5-16.0); LYMPHOCYTES % (AUTO) 10 % (12-44); MEAN CORPUSCULAR HEMOGLOBIN 29 pg (25-34); MEAN CORPUSCULAR HGB CONC 30 g/dL (32-36); MEAN CORPUSCULAR VOLUME 95 fL (80-99); MEAN PLATELET VOLUME 10.3 fL (9.0-12.2); MONOCYTES # (AUTO) 0.4 10^3/uL (0.0-1.0); MONOCYTES % (AUTO) 4 % (0-12); NEUTROPHILS # (AUTO) 8.4 10^3/uL (1.8-7.8); NEUTROPHILS % (AUTO) 85 % (42-75); PLATELET COUNT 290 10^3/uL (130-400); WHITE BLOOD COUNT 9.9 10^3/uL (4.3-11.0)
[2020-10-19 14:41] LABS: ALANINE AMINOTRANSFERASE 13 U/L (0-55); ALBUMIN 3.2 GM/DL (3.2-4.5); ALKALINE PHOSPHATASE 39 U/L (40-136); BILIRUBIN,TOTAL 0.3 MG/DL (0.1-1.0); BUN/CREATININE RATIO 24; CARBON DIOXIDE 26 MMOL/L (21-32); CHLORIDE 106 MMOL/L (98-107); GFR ESTIMATED > 60; GLUCOSE 243 MG/DL (70-105); POTASSIUM 4.1 MMOL/L (3.6-5.0); SODIUM 138 MMOL/L (135-145); TOTAL PROTEIN 6.1 GM/DL (6.4-8.2)
[2020-10-19] MEDS: LACTATED RINGERS 1,000 ML IV SCH (20:08)
[2020-10-19] MEDS: PANTOPRAZOLE 40 MG (PROTONIX) TAB PO SCH (20:08)
[2020-10-19] MEDS ORDERED: CEFEPIME 1 GM/10 ML (MAXIPIME) VIAL ONE (21:13)
[2020-10-19] MEDS ORDERED: WATER (STERILE) FOR INJECTION 10 ML ONE (21:13)
[2020-10-19] MEDS ORDERED: NS IV 500 ML 500 ML ONE (22:56)
[2020-10-20 01:07] VITALS: BP 131/52
[2020-10-20] MEDS: LACTATED RINGERS 1,000 ML IV SCH ×3 (01:51→15:25)
[2020-10-20] MEDS: RT-ALBUTEROL INHALER HFA (VENTOLIN HFA) 18 GM IH SCH ×5 (02:10→23:19)
[2020-10-20 03:12] VITALS: BP 139/48
[2020-10-20 03:19] LABS: BASOPHILS % (AUTO) 0 % (0-10); EOSINOPHILS % (AUTO) 0 % (0-10); HEMATOCRIT 30 % (35-52); HEMOGLOBIN 9.4 g/dL (11.5-16.0); LYMPHOCYTES # (AUTO) 1.3 10^3/uL (1.0-4.0); LYMPHOCYTES % (AUTO) 19 % (12-44); MEAN CORPUSCULAR HEMOGLOBIN 29 pg (25-34); MEAN CORPUSCULAR HGB CONC 32 g/dL (32-36); MEAN CORPUSCULAR VOLUME 92 fL (80-99); MEAN PLATELET VOLUME 10.2 fL (9.0-12.2); MONOCYTES # (AUTO) 0.4 10^3/uL (0.0-1.0); MONOCYTES % (AUTO) 6 % (0-12); NEUTROPHILS # (AUTO) 4.8 10^3/uL (1.8-7.8); NEUTROPHILS % (AUTO) 73 % (42-75); PLATELET COUNT 244 10^3/uL (130-400); WHITE BLOOD COUNT 6.5 10^3/uL (4.3-11.0)
[2020-10-20 03:35] LABS: ALBUMIN 3.1 GM/DL (3.2-4.5); CHLORIDE 107 MMOL/L (98-107); POTASSIUM 3.4 MMOL/L (3.6-5.0); SODIUM 140 MMOL/L (135-145)
[2020-10-20 03:37] LABS: CALCIUM 7.6 MG/DL (8.5-10.1)
[2020-10-20 03:38] LABS: GLUCOSE 114 MG/DL (70-105); TOTAL PROTEIN 5.9 GM/DL (6.4-8.2)
[2020-10-20 03:39] LABS: CARBON DIOXIDE 25 MMOL/L (21-32)
[2020-10-20 03:40] LABS: BILIRUBIN,TOTAL 0.3 MG/DL (0.1-1.0)
[2020-10-20 03:41] LABS: ALKALINE PHOSPHATASE 37 U/L (40-136); PHOSPHORUS 1.7 MG/DL (2.3-4.7)
[2020-10-20 03:42] LABS: CREATININE SERUM 0.56 MG/DL (0.60-1.30); GFR ESTIMATED > 60
[2020-10-20 03:43] LABS: BUN/CREATININE RATIO 21
[2020-10-20 03:44] LABS: MAGNESIUM 1.2 MG/DL (1.6-2.4)
[2020-10-20 03:45] LABS: ALANINE AMINOTRANSFERASE 12 U/L (0-55)
--- NOTE | 2020-10-20 04:34 | Pulmonary Consultation ---
History of Present Illness History of Present Illness Date Seen by Provider: Oct 20, 2020 Time Seen by Provider: 04:27 Date of Admission Allergies and Home Medications Allergies Coded Allergies: fentanyl (Unverified Allergy, Intermediate, SEVERE NAUSEA/VOMITTING, 06/07/11) morphine (Verified Allergy, Unknown, 07/19/18) tramadol (Verified Allergy, Unknown, 09/01/08) Home Medications Acetaminophen 500 Mg Tablet, 1,000 MG PO Q6H PRN for PAIN-MILD, (Reported) TAKES 2 (500 MG) TABLETS Amlodipine Besylate 2.5 Mg Tablet, 2.5 MG PO DAILY, (Reported) Aspirin 81 Mg Tablet.dr, 81 MG PO DAILY, (Reported) Atorvastatin Calcium 80 Mg Tablet, 80 MG PO HS, (Reported) Budesonide/Formoterol Fumarate 10.2 Gm Hfa.aer.ad, 2 PUFF INH BID, (Reported) Clopidogrel Bisulfate 75 Mg Tablet, 75 MG PO DAILY, (Reported) Empagliflozin 10 Mg Tablet, 10 MG PO DAILY, (Reported) Fenofibrate 160 Mg Tablet, 160 MG PO HS, (Reported) Fluticasone Propionate 16 Gm Benge.susp, 1 SPRAY NSEACH BID PRN for ALLERGY SYMPTOMS, (Reported) Isosorbide Mononitrate 60 Mg Tab, 60 MG PO DAILY, (Reported) Levothyroxine Sodium 112 Mcg Tablet, 112 MCG PO DAILY, (Reported) Meclizine HCl 12.5 Mg Tablet, 12.5-25 MG PO Q6H PRN for VERTIGO, (Reported) Nystatin 15 Gm Powder, 1 APPLIC TOP DAILY PRN for YEAST, (Reported) APPLIES UNDER BREAST AND GROIN AREA Pantoprazole Sodium 40 Mg Tablet.dr, 40 MG PO HS, (Reported) Ranolazine 1,000 Mg Tab.er.12h, 1,000 MG PO BID, (Reported) Sitagliptin Phos/Metformin HCl 1 Each Tablet, 1 EACH PO BID WITH MEALS, (Reported) Tiotropium [place] 4 Gm Mist.inhal, 2 PUFF INH DAILY, (Reported) Valsartan 160 Mg Tablet, 160 MG PO DAILY, (Reported) Past Zqlauer-Oaersd-Jseolk Hx Past Med/Social Hx: Reviewed Nursing Past Med/Soc Hx, Reviewed and Corrections made Patient Social History Alcohol Use: Denies Use Recreational Drug Use: No Smoking Status: Former Smoker Type Used: Cigarettes Former Smoker, Quit: May 19, 2009 2nd Hand Smoke Exposure: No Recent Foreign Travel: No Contact w/Someone Who Travel: No Recent Infectious Disease Expo: No Recent Hopitalizations: Yes Physical Abuse: No Sexual Abuse: No Mistreated: No Fear: No Immunizations Up To Date Tetanus Booster (TDap): Unknown PED Vaccines UTD: Yes Date of Pneumonia Vaccine: Aug 03, 2017 Date of Influenza Vaccine: Aug 16, 2020 Seasonal Allergies Seasonal Allergies: No Past Medical History Surgeries: Yes (triple bypass, partial hyst, heart stent, heart cath,) Cardiac, CABG, Coronary Stent, Gallbladder, Hysterectomy Respiratory: Yes (O2 WITH ANY ACTIVITY AND AT HS) Pneumonia, COPD Currently Using CPAP: No Currently Using BIPAP: No Cardiac: Yes (BRADYCARDIA) Coronary Artery Disease, Heart Attack, High Cholesterol, Hypertension Neurological: Yes Stroke Reproductive Disorders: No Sexually Transmitted Disease: No HIV/AIDS: No Genitourinary: No Gastrointestinal: Yes Gastroesophageal Reflux, Esophagitis, Hiatal Hernia Musculoskeletal: Yes Arthritis, Chronic Back Pain Endocrine: Yes Hypothyroidsim, Diabetes, Non-Insulin dep HEENT: No Cancer: No Psychosocial: No Integumentary: No Blood Disorders: No Adverse Reaction/Blood Tranf: No Family Medical History Arthritis 19 FATHER Asthma 19 MOTHER Cardiovascular disease 19 MOTHER G8 BROTHER G8 SISTER G8 SISTER G8 SISTER Cataracts 19 FATHER Diabetes mellitus 19 MOTHER G8 BROTHER G8 SISTER G8 SISTER G8 SISTER Hypertension 19 MOTHER Myocardial infarction 19 MOTHER G8 SISTER G8 SISTER Parkinson's disease G8 BROTHER Prostate cancer 19 FATHER Respiratory disorder G8 BROTHER Thyroid disease 19 MOTHER Review of Systems Time Seen by Provider: 04:35 Sepsis Event Evaluation Height, Weight, BMI Height: 5'0" Weight: 161lbs. 11.2oz. 73.606581nt; 30.44 BMI Method:Stated Exam Exam Vital Signs Date Time Temp Pulse Resp B/P (MAP) Pulse Ox O2 Delivery O2 Flow Rate FiO2 10/20/20 03:12 35.8 56 22 139/48 (78) 99 Nasal Cannula 2.00 10/20/20 01:07 36.4 53 18 131/52 99 Nasal Cannula 2.00 10/20/20 01:00 51 10/19/20 23:43 36.4 52 20 139/63 98 Nasal Cannula 2.00 10/19/20 23:35 36.3 54 20 144/62 (89) 98 Nasal Cannula 2.00 10/19/20 23:31 36.3 55 20 149/57 98 Nasal Cannula 2.00 10/19/20 22:24 99 Nasal Cannula 2.00 10/19/20 20:15 36.4 64 20 149/57 (87) 98 Nasal Cannula 2.00 10/19/20 20:00 Nasal Cannula 2.00 10/19/20 19:00 70 10/19/20 18:50 100 Nasal Cannula 3.00 10/19/20 13:00 65 10/19/20 12:00 39.2 59 16 82/36 (51) 92 Nasal Cannula 2.00 10/19/20 11:06 39.7 10/19/20 10:48 93 Room Air 10/19/20 08:29 37.8 10/19/20 08:00 36.1 80 18 158/69 (98) 95 Nasal Cannula 2.00 10/19/20 08:00 Nasal Cannula 2.00 10/19/20 07:10 99 Nasal Cannula 2.00 I & O 10/20/20 07:00 Intake Total 890 ml Balance 890 ml Height & Weight Height: 5'0" Weight: 161lbs. 11.2oz. 73.759958kg; 30.44 BMI Method:Stated General Appearance: No Apparent Distress, WD/WN, Chronically ill HEENT: PERRL/EOMI, Normal ENT Inspection, Pharynx Normal, Moist Mucous Membranes Neck: Full Range of Motion, Normal Inspection, Non Tender Respiratory: Chest Non Tender, Lungs Clear, Normal Breath Sounds, No Accessory Muscle Use, No Respiratory Distress, Decreased Breath Sounds Cardiovascular: Regular Rate, Rhythm, No Edema, No Gallop, No JVD, No Murmur, Normal Peripheral Pulses Capillary Refill: Less Than 3 Seconds Gastrointestinal: normal bowel sounds, non tender, soft Extremity: Normal Capillary Refill, Normal Inspection, Normal Range of Motion, Non Tender, No Calf Tenderness, No Pedal Edema Neurologic/Psychiatric: Alert, Oriented x3, No Motor/Sensory Deficits, Normal Mood/Affect Skin: Normal Color, Warm/Dry Lymphatic: No Adenopathy Results Lab Laboratory Tests 10/18/20 05:48 10/19/20 05:40 10/19/20 14:00 10/20/20 03:06 Assessment/Plan Assessment/Plan COVID 19 -Remdesivir, CVP -Decadron PNA probably from COVID r.o bacterial secondary infection -No leukocytosis -PCT is normal -- will repeat -Cefepime and Vanco currently Metabolic Lactic acidosis - Now improved -Transferred up here from 4th yesterday -Decrease IVF back to 30cc/hr -Possibly from metformin and intravascular dehydration COPDAE -Steroids -Albuterol Hypophos and hypomag -replace Hx of severe oxygen dependent COPD CAD MORGAN SALES DO Oct 20, 2020 04:34
[2020-10-20] MEDS: inSUlin ASPART (NovoLOG) 1 UNIT/0.01 ML (CHARGE PER UNIT) SC SCH ×4 (05:39→21:20)
[2020-10-20] MEDS ORDERED: CEFEPIME 1 GM/10 ML (MAXIPIME) VIAL ONE ×2 (05:39→22:21)
[2020-10-20] MEDS: CATHETER FLUSH 10 ML SYR IV SCH ×3 (05:39→21:28)
[2020-10-20] MEDS ORDERED: WATER (STERILE) FOR INJECTION 10 ML ONE ×2 (05:40→22:21)
--- NOTE | 2020-10-20 05:42 | Progress Note - Hospitalist ---
Subjective HPI/CC On Admission Date Seen by Provider: Oct 20, 2020 Time Seen by Provider: 10:00 CC: SOB HPI: This is a 75yoWF with a past medical history of 2 L oxygen dependent COPD, DM and other comorbidities who presented to the ER after Dr. Yoli Matthews called me after seeing her in the clinic because of diagnosis of Covid at high risk for decompensation. She was assessed and deemed a candidate for convalescent plasma and Remdesivir along with Decadron and close monitoring for hypoglycemia. Currently she is doing much better and she feels like she is comfortable on her 2 L of oxygen she takes continuously,. Overall doing very well. Subjective/Events-last exam Patient much improved Moving to 4th floor now Metformin DC Narrowed abx Conferred with Dr Gutierrez Review of Systems General: Fatigue, Malaise Pulmonary: Dyspnea, Cough Focused Exam Lactate Level 10/19/20 18:05: Lactic Acid Level 2.06*H 10/19/20 20:50: Lactic Acid Level 2.24*H 10/19/20 22:55: Lactic Acid Level 1.32 Objective Exam Vital Signs Vital Signs Date Time Temp Pulse Resp B/P (MAP) Pulse Ox O2 Delivery O2 Flow Rate FiO2 10/21/20 03:38 36.2 50 20 148/66 (93) 99 Nasal Cannula 2.00 10/16/20 20:14 28 Capillary Refill : Less Than 3 Seconds General Appearance: No Apparent Distress, WD/WN Respiratory: Chest Non Tender, Lungs Clear, Normal Breath Sounds, No Accessory Muscle Use, No Respiratory Distress Cardiovascular: Regular Rate, Rhythm, No Edema, No Gallop, No JVD, No Murmur, Normal Peripheral Pulses Neurologic/Psychiatric: Alert, Oriented x3, No Motor/Sensory Deficits, Normal Mood/Affect Results/Procedures Lab Patient resulted labs reviewed. 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 10/20/20: Much improved status DC Metformin Monitor BP and O2 Diagnosis/Problems Diagnosis/Problems (1) COVID-19 Status: Acute (2) COPD exacerbation Status: Acute (3) CAD (coronary artery disease) Status: Chronic (4) HLD (hyperlipidemia) Status: Chronic (5) Supplemental oxygen dependent Status: Chronic (6) DVT prophylaxis Status: Acute (7) COPD (chronic obstructive pulmonary disease) Status: Chronic (8) Hypothyroidism Status: Chronic (9) Mixed hyperlipidemia Status: Chronic (10) HTN (hypertension) Status: Chronic (11) Non-insulin dependent type 2 diabetes mellitus Status: Chronic (12) History of coronary artery bypass graft x 3 Status: Chronic Clinical Quality Measures DVT/VTE Risk/Contraindication: Risk Factor Score Per Nursin RFS Level Per Nursing on Admit: 4+=Very High CHAPIS MARY DO Oct 20, 2020 05:41
[2020-10-20] MEDS: MAGNESIUM 1 GM/100 ML IVPB 100 ML IV SCH ×4 (06:12→08:15)
[2020-10-20] MEDS: LEVOTHYROXINE 112 MCG (LEVOTHROID) TAB PO SCH (06:12)
[2020-10-20] MEDS: CEFEPIME INJECTION 1,000 MG in WATER (STERILE) FOR INJECTION 10 ML IV SCH ×3 (06:12→22:27)
[2020-10-20 06:34] LABS: BILIRUBIN,URINE NEGATIVE (NEGATIVE); CLARITY,URINE CLEAR; COLOR,URINE YELLOW; GLUCOSE, URINE (UA) 1+ (NEGATIVE); KETONES,URINE NEGATIVE (NEGATIVE); LEUKOCYTE ESTERASE ,URINE NEGATIVE (NEGATIVE); NITRITE,URINE NEGATIVE (NEGATIVE); PROTEIN,URINE NEGATIVE (NEGATIVE)
[2020-10-20 06:45] LABS: BACTERIA,URINE NEGATIVE /HPF
[2020-10-20 07:56] VITALS: BP 122/99
[2020-10-20] MEDS: LINAGLIPTIN (TRADJENTA) 5 MG TABLET PO SCH (08:46)
[2020-10-20] MEDS: ISOSORBIDE MONONITRATE 60 MG (IMDUR) TAB PO SCH (08:47)
[2020-10-20] MEDS: dexAMETHasone 6 MG TAB (DECADRON) PO SCH (08:47)
[2020-10-20] MEDS: FENOFIBRATE 134 MG (LOFIBRA) CAPSULE PO SCH (08:47)
[2020-10-20] MEDS: RANOLAZINE ER 500 MG TAB (RANEXA) PO SCH ×2 (08:47→21:19)
[2020-10-20] MEDS: SENNA W/DOCUSATE (SENOKOT S) TABLET PO SCH ×2 (08:47→21:19)
[2020-10-20] MEDS: ASPIRIN E.C. 81 MG (ECOTRIN) TAB PO SCH (08:47)
[2020-10-20] MEDS: CLOPIDOGREL 75 MG (PLAVIX) TABLET PO SCH (08:47)
[2020-10-20] MEDS: LOSARTAN 100 MG (COZAAR) TABLET PO SCH (08:47)
[2020-10-20] MEDS: ENOXAPARIN 40 MG/0.4 ML (LOVENOX) SYR SC SCH ×2 (08:47→21:19)
[2020-10-20] MEDS ORDERED: POTASSIUM PHOSPHATE INJ 30 MM in NS (IVPB) 250 ML IV ONE (09:00)
[2020-10-20] MEDS: ACETAMINOPHEN 500 MG TAB (TYLENOL) PO PRN (09:57)
[2020-10-20 11:16] VITALS: BP 132/58
[2020-10-20 15:39] VITALS: BP 138/74
--- NOTE | 2020-10-20 17:46 | NUR ---
Report taken from Javad RN patient will be returning to room 432
[2020-10-20] MEDS: PANTOPRAZOLE 40 MG (PROTONIX) TAB PO SCH (18:34)
[2020-10-20 19:43] VITALS: BP 153/68
[2020-10-20] MEDS: ADVAIR HFA 115/21 MCG INHALER 8 GM IH SCH (23:19)
[2020-10-21 00:34] VITALS: BP 123/58
[2020-10-21] MEDS: RT-ALBUTEROL INHALER HFA (VENTOLIN HFA) 18 GM IH SCH ×5 (03:33→22:36)
[2020-10-21 03:38] VITALS: BP 148/66
[2020-10-21] MEDS ORDERED: CEFEPIME 1 GM/10 ML (MAXIPIME) VIAL ONE (06:09)
[2020-10-21] MEDS ORDERED: WATER (STERILE) FOR INJECTION 10 ML ONE (06:09)
[2020-10-21] MEDS: CATHETER FLUSH 10 ML SYR IV SCH ×3 (06:17→20:20)
[2020-10-21] MEDS: inSUlin ASPART (NovoLOG) 1 UNIT/0.01 ML (CHARGE PER UNIT) SC SCH ×4 (06:17→20:19)
[2020-10-21] MEDS: LEVOTHYROXINE 112 MCG (LEVOTHROID) TAB PO SCH (06:24)
[2020-10-21] MEDS: CEFEPIME INJECTION 1,000 MG in WATER (STERILE) FOR INJECTION 10 ML IV SCH ×3 (06:24→23:15)
[2020-10-21 06:33] LABS: BASOPHILS % (AUTO) 0 % (0-10); EOSINOPHILS % (AUTO) 0 % (0-10); HEMATOCRIT 30 % (35-52); HEMOGLOBIN 9.6 g/dL (11.5-16.0); LYMPHOCYTES # (AUTO) 1.8 10^3/uL (1.0-4.0); LYMPHOCYTES % (AUTO) 33 % (12-44); MEAN CORPUSCULAR HEMOGLOBIN 29 pg (25-34); MEAN CORPUSCULAR HGB CONC 32 g/dL (32-36); MEAN CORPUSCULAR VOLUME 91 fL (80-99); MEAN PLATELET VOLUME 10.7 fL (9.0-12.2); MONOCYTES # (AUTO) 0.4 10^3/uL (0.0-1.0); MONOCYTES % (AUTO) 8 % (0-12); NEUTROPHILS % (AUTO) 57 % (42-75); PLATELET COUNT 262 10^3/uL (130-400); WHITE BLOOD COUNT 5.4 10^3/uL (4.3-11.0)
[2020-10-21 06:46] LABS: ALBUMIN 3.1 GM/DL (3.2-4.5); CHLORIDE 107 MMOL/L (98-107); POTASSIUM 3.7 MMOL/L (3.6-5.0); SODIUM 141 MMOL/L (135-145)
[2020-10-21 06:47] LABS: CALCIUM 7.8 MG/DL (8.5-10.1)
[2020-10-21 06:48] LABS: GLUCOSE 86 MG/DL (70-105)
[2020-10-21 06:49] LABS: TOTAL PROTEIN 6.1 GM/DL (6.4-8.2)
[2020-10-21 06:50] LABS: BILIRUBIN,TOTAL 0.3 MG/DL (0.1-1.0); CARBON DIOXIDE 25 MMOL/L (21-32)
[2020-10-21 06:52] LABS: ALKALINE PHOSPHATASE 37 U/L (40-136); CREATININE SERUM 0.52 MG/DL (0.60-1.30); GFR ESTIMATED > 60
[2020-10-21 06:53] LABS: BUN/CREATININE RATIO 21
[2020-10-21 06:55] LABS: ALANINE AMINOTRANSFERASE 13 U/L (0-55)
[2020-10-21 08:00] VITALS: BP 158/70
[2020-10-21] MEDS: RANOLAZINE ER 500 MG TAB (RANEXA) PO SCH ×2 (08:30→20:18)
[2020-10-21] MEDS: SENNA W/DOCUSATE (SENOKOT S) TABLET PO SCH ×2 (08:30→20:18)
[2020-10-21] MEDS: ASPIRIN E.C. 81 MG (ECOTRIN) TAB PO SCH (08:30)
[2020-10-21] MEDS: CLOPIDOGREL 75 MG (PLAVIX) TABLET PO SCH (08:30)
[2020-10-21] MEDS: LOSARTAN 100 MG (COZAAR) TABLET PO SCH (08:31)
[2020-10-21] MEDS: ISOSORBIDE MONONITRATE 60 MG (IMDUR) TAB PO SCH (08:31)
[2020-10-21] MEDS: FENOFIBRATE 134 MG (LOFIBRA) CAPSULE PO SCH (08:31)
[2020-10-21] MEDS: dexAMETHasone 6 MG TAB (DECADRON) PO SCH (08:31)
[2020-10-21] MEDS: ENOXAPARIN 40 MG/0.4 ML (LOVENOX) SYR SC SCH ×2 (08:31→20:18)
[2020-10-21] MEDS: LINAGLIPTIN (TRADJENTA) 5 MG TABLET PO SCH (08:31)
[2020-10-21] MEDS: ADVAIR HFA 115/21 MCG INHALER 8 GM IH SCH ×2 (08:34→18:53)
[2020-10-21] MEDS: ACETAMINOPHEN 500 MG TAB (TYLENOL) PO PRN ×2 (11:14→20:18)
--- NOTE | 2020-10-21 13:16 | Physical Therapy Evaluation ---
PT Evaluation-General Medical Diagnosis Admission Date Oct 16, 2020 at 16:12 Medical Diagnosis: COVID (+), respiratory problems Onset Date: Oct 16, 2020 Therapy Diagnosis Therapy Diagnosis: weakness Height/Weight Height (Feet): 5 Height (Inches): 0 Weight (Pounds): 161 Weight (Ounces): 11.2 Precautions Precautions/Isolations: Airborne Isolation, Fall Prevention, Standard Precautions Weight Bear Status Right Lower Extremity: Right Full Weight Bearing Left Lower Extremity: Left Full Weight Bearing Referral Physician: Peri Reason for Referral: Evaluation/Treatment Medical History Pertinent Medical History: Arthritis, CABG, CAD, COPD, DM, GERD, HTN, Hypothroidism, AR, Smoking Additional Medical History bradycardia, CAD, high cholesterol, CVA, GERD, esophagitis, hiatal hernia, back pain, hypothyroidism, NIDDM Current History To ER with SOB, COVID (+) Reviewed History: Yes Social History Home: Current Living Status: Other Family Entry Into Home: Stairs With Railing PT Steps Into Home: 6 [address] with granddaughter (who works). Prior Prior Level of Function SCALE: Activities may be completed with or without assistive devices. 4-Bzbwvpxxlt-sttrcjp completes the activity by him/herself with no assistance from a helper. 5-Set-up or Clean-up Assistance-helper sets up or cleans up; patient completes activity. [place] assists only prior to or following the activity. 4-Supervision or Touching Assistance-helper provides verbal cues and/or touching/steadying and/or contact guard assistance as patient completes activity. Assistance may be provided throughout the activity or intermittently. 3-Partial/Moderate Assistance-helper does LESS THAN HALF the effort. [place] lifts, holds or supports trunk or limbs, but provides less than half the effort. 2-Substantial/Maximal Assistance-helper does MORE THAN HALF the effort. [place] lifts or holds trunk or limbs and provides more than half the effort. 1-Bdfawmskx-sbgtnj does ALL the effort. Patient does none of the effort to complete the activity. Or, the assistance of 2 or more helpers is required for the patient to complete the activity. If activity was not attempted, code reason: 7-Patient Refused. 9-Not Applicable-not attempted and the patient did not perform the activity before the current illness, exacerbation or injury. 10-Not Attempted due to Environmental Limitations-(lack of equipment, weather restraints, etc.). 88-Not Attempted due to Medical Conditions or Safety Concerns. Bed Mobility: 6 Transfers (B,C,W/C): 6 Gait: 6 Stairs: 6 Indoor Mobility (Ambulation): Independent Stairs: Independent Prior Devices Use: None Has 4WW with seat but did not need at PLOF. Has O2 concentrator, managed extended tubing (I) PT Evaluation-Current Subjective Pt in bed, agreeable. Reports she has been up (I) to [facility] in room. Reports breathing is "almost back to normal". Reports fatigue with minimal activity. Pt/Family Goals home Objective Patient Orientation: Person, Place, Time, Situation Attachments: Oxygen, IV ROM/Strength ROM Upper Extremities WFL for functional mobility ROM Lower Extremities WFL for functional mobility Strength Upper Extremities WFL for functional mobility Strength Lower Extremities WFL for functional mobility Integumentary/Posture Integumentary See nurses' notes Bowel Incontinence: No Bladder Incontinence: No Posture kyphosis Neuromuscular (Tone, Coordination, Reflexes) Grossly intact Sensory Vision: Wears Glasses Hearing: Functional Transfers Roll Left to Right (QC): 6 Sit to Lying (QC): 6 Lying to Sitting/Side of Bed(Q: 6 Sit to Stand (QC): 6 Chair/Oxb-vb-Lcwyx Xfer(QC): 6 Toilet Transfer (QC): 6 (I) yoli care Gait Does the Patient Walk?: Yes Mode of Locomotion: Walk Anticipated Mode of Locomotion: Walk Walk 10 feet (QC): 5 Walk 50 ft with 2 Turns(QC): 88 Walk 150 ft (QC): 88 Walking 10ft/uneven surface-QC: 10 Distance: 10 Gait Assistive Device: FWW Comments/Gait Description Pt ambulated around foot of bed and back to [facility]. Mod (I) with toilet transfer and yoli-care. SBA with ambulation for O2, IV management. Wheelchair Training Does the Pt Use a Wheelchair?: No Balance Sitting Static: Normal Sitting Dynamic: Normal Standing Static: Normal Standing Dynamic: Good Treatment Eval. In bed with O2 in situ, needs met. Assessment/Needs Pt is near PLOF for (I) with functional mobility. Does demonstrate decreased functional activity tolerance, easily SOB with activity. Pt would benefit from skilled PT to improve functional activity tolerance to allow safe return home. Rehab Potential: Good PT Short Term Goals Short Term Goals Time Frame: Oct 25, 2020 Roll Left & Right: 6 Sit to lyin Lying to sitting on side of be: 6 Sit to stand: 6 Chair/xfh-iu-dioip transfer: 6 PT Gas Pit Worker Goals Fdc Goals PT Gas Pit Worker Goals Time Frame: Nov 02, 2020 Roll Left & Right (QC): 6 Sit to Lying (QC): 6 Lying-Sitting on Side/Bed(QC): 6 Sit to Stand (QC): 6 Chair/Stx-zl-Uprsk Xfer(QC): 6 Toilet Transfer (QC): 6 Car Transfer (QC): 6 Does the Patient Walk: Yes Walk 10 feet (QC): 6 Walk 50ft with 2 Turns (QC): 6 Walk 150 ft (QC): 6 Walking 10ft on Uneven Surface: 6 1 Step (curb) (QC): 6 4 Steps (QC): 6 12 Steps (QC): 9 Picking up an Object (QC): 6 Does the Pt use WC or Scooter?: No Wheel 50 feet with 2 turns (QC: 9 Type: N/A Wheel 150 feet: 9 Type: N/A PT goals established to allow safe return home. PT Plan Problem List Problem List: Activity Tolerance, Functional Strength, Safety, Balance, Gait, Transfer, Bed Mobility Treatment/Plan Treatment Plan: Continue Plan of Care Treatment Plan: Education, Functional Activity Kristofer, Functional Strength, Gait, Safety, Therapeutic Exercise, Transfers Treatment Duration: Nov 02, 2020 Frequency: 6 times per week Estimated Hrs Per Day: .25 hour per day Patient and/or Family Agrees t: Yes Safety Risks/Education Teaching Recipient: Patient Teaching Methods: Discussion Response to Teaching: Verbalize Understanding Role of PT Discharge Recommendations Therapy Discharge Recommendati: Home & Family Time/GCodes Time In: 1241 Time Out: 1303 Total Billed Treatment Time: 22 Total Billed Treatment 1, ALISIAC x 22' DANA RIVERA DPhSahrzad Oct 21, 2020 13:16
--- NOTE | 2020-10-21 14:04 | Progress Note - Hospitalist ---
Subjective HPI/CC On Admission Date Seen by Provider: Oct 21, 2020 Time Seen by Provider: 11:00 CC: SOB HPI: This is a 75yoWF with a past medical history of 2 L oxygen dependent COPD, DM and other comorbidities who presented to the ER after Dr. Yoli Matthews called me after seeing her in the clinic because of diagnosis of Covid at high risk for decompensation. She was assessed and deemed a candidate for convalescent plasma and Remdesivir along with Decadron and close monitoring for hypoglycemia. Currently she is doing much better and she feels like she is comfortable on her 2 L of oxygen she takes continuously,. Overall doing very well. Subjective/Events-last exam Patient very weak Monitor BP No edema noted Hypoxia remains Review of Systems General: Fatigue, Malaise Pulmonary: Dyspnea Focused Exam Lactate Level 10/19/20 18:05: Lactic Acid Level 2.06*H 10/19/20 20:50: Lactic Acid Level 2.24*H 10/19/20 22:55: Lactic Acid Level 1.32 Objective Exam Vital Signs Vital Signs Date Time Temp Pulse Resp B/P (MAP) Pulse Ox O2 Delivery O2 Flow Rate FiO2 10/22/20 02:53 96 Room Air 10/21/20 23:41 36.4 50 20 157/68 (97) 10/21/20 16:37 0.50 10/16/20 20:14 28 Capillary Refill : Less Than 3 Seconds General Appearance: No Apparent Distress, WD/WN, Chronically ill Respiratory: Chest Non Tender, Lungs Clear, Normal Breath Sounds, No Accessory Muscle Use, No Respiratory Distress Cardiovascular: Regular Rate, Rhythm, No Edema, No Gallop, No JVD, No Murmur, Normal Peripheral Pulses Neurologic/Psychiatric: Alert, Oriented x3, No Motor/Sensory Deficits, Normal Mood/Affect Results/Procedures Lab Laboratory Tests 10/22/20 05:57 Patient resulted labs reviewed. Assessment/Plan Assessment and Plan Assess & Plan/Chief Complaint Assessment: COVID-19 PNA AECOPD O2 dependence at home CAD HTN HLP Sepsis episode with elevated lactic acid and hypotension 10/19/20 Plan: COVID- treatment with Decadron Abx Lovenox Antivirals not required CVP 10/18/20: COVID-19 treatment with Decadron and CVP Monitor O2 sats Increase insulin 10/19/20: Transfer to [facility] Sepsis protocol PNA treatment IVF Consult Dr Gutierrez layer up 10/20/20: Much improved status DC Metformin Monitor BP and O2 10/21/20: Abx Supportive care Diagnosis/Problems Diagnosis/Problems (1) COVID-19 Status: Acute (2) COPD exacerbation Status: Acute (3) CAD (coronary artery disease) Status: Chronic (4) HLD (hyperlipidemia) Status: Chronic (5) Supplemental oxygen dependent Status: Chronic (6) DVT prophylaxis Status: Acute (7) COPD (chronic obstructive pulmonary disease) Status: Chronic (8) Hypothyroidism Status: Chronic (9) Mixed hyperlipidemia Status: Chronic (10) HTN (hypertension) Status: Chronic (11) Non-insulin dependent type 2 diabetes mellitus Status: Chronic (12) 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
[2020-10-21 16:37] VITALS: BP 137/64
[2020-10-21] MEDS: PANTOPRAZOLE 40 MG (PROTONIX) TAB PO SCH (18:28)
[2020-10-21] MEDS: LACTATED RINGERS 1,000 ML IV SCH (23:15)
[2020-10-21 23:41] VITALS: BP 157/68
[2020-10-22] MEDS: RT-ALBUTEROL INHALER HFA (VENTOLIN HFA) 18 GM IH SCH ×6 (02:50→22:01)
[2020-10-22] MEDS: CATHETER FLUSH 10 ML SYR IV SCH ×3 (05:42→21:08)
[2020-10-22] MEDS: CEFEPIME INJECTION 1,000 MG in WATER (STERILE) FOR INJECTION 10 ML IV SCH ×3 (05:42→23:55)
[2020-10-22] MEDS: inSUlin ASPART (NovoLOG) 1 UNIT/0.01 ML (CHARGE PER UNIT) SC SCH ×4 (05:42→20:28)
[2020-10-22] MEDS: LEVOTHYROXINE 112 MCG (LEVOTHROID) TAB PO SCH (05:42)
[2020-10-22 06:13] LABS: BASOPHILS % (AUTO) 0 % (0-10); EOSINOPHILS % (AUTO) 0 % (0-10); HEMATOCRIT 31 % (35-52); HEMOGLOBIN 9.7 g/dL (11.5-16.0); LYMPHOCYTES # (AUTO) 1.8 10^3/uL (1.0-4.0); LYMPHOCYTES % (AUTO) 33 % (12-44); MEAN CORPUSCULAR HEMOGLOBIN 29 pg (25-34); MEAN CORPUSCULAR HGB CONC 32 g/dL (32-36); MEAN CORPUSCULAR VOLUME 91 fL (80-99); MEAN PLATELET VOLUME 10.6 fL (9.0-12.2); MONOCYTES # (AUTO) 0.4 10^3/uL (0.0-1.0); MONOCYTES % (AUTO) 7 % (0-12); NEUTROPHILS # (AUTO) 3.2 10^3/uL (1.8-7.8); NEUTROPHILS % (AUTO) 57 % (42-75); PLATELET COUNT 259 10^3/uL (130-400); WHITE BLOOD COUNT 5.5 10^3/uL (4.3-11.0)
[2020-10-22 06:32] LABS: CHLORIDE 107 MMOL/L (98-107); POTASSIUM 3.9 MMOL/L (3.6-5.0); SODIUM 138 MMOL/L (135-145)
[2020-10-22 06:33] LABS: CALCIUM 8.1 MG/DL (8.5-10.1)
[2020-10-22 06:34] LABS: GLUCOSE 114 MG/DL (70-105)
[2020-10-22 06:35] LABS: CARBON DIOXIDE 22 MMOL/L (21-32)
[2020-10-22 06:36] LABS: BILIRUBIN,TOTAL 0.3 MG/DL (0.1-1.0)
[2020-10-22 06:37] LABS: ALKALINE PHOSPHATASE 38 U/L (40-136)
[2020-10-22 06:38] LABS: CREATININE SERUM 0.55 MG/DL (0.60-1.30); GFR ESTIMATED > 60
[2020-10-22 06:39] LABS: BUN/CREATININE RATIO 25
[2020-10-22 06:41] LABS: ALANINE AMINOTRANSFERASE 14 U/L (0-55)
--- NOTE | 2020-10-22 07:28 | Progress Note - Hospitalist ---
Subjective HPI/CC On Admission Date Seen by Provider: Oct 22, 2020 Time Seen by Provider: 11:00 CC: SOB HPI: This is a 75yoWF with a past medical history of 2 L oxygen dependent COPD, DM and other comorbidities who presented to the ER after Dr. Yoli Matthews called me after seeing her in the clinic because of diagnosis of Covid at high risk for decompensation. She was assessed and deemed a candidate for convalescent plasma and Remdesivir along with Decadron and close monitoring for hypoglycemia. Currently she is doing much better and she feels like she is comfortable on her 2 L of oxygen she takes continuously,. Overall doing very well. Subjective/Events-last exam Patient feels much better Very weak PT OT tomorrow Rehab? Less dyspneic Review of Systems General: Fatigue, Malaise Pulmonary: Dyspnea Focused Exam Lactate Level Objective Exam Vital Signs Vital Signs Date Time Temp Pulse Resp B/P (MAP) Pulse Ox O2 Delivery O2 Flow Rate FiO2 10/23/20 02:32 92 Room Air 10/22/20 23:55 36.5 62 16 147/75 (99) 10/22/20 20:00 0.00 Capillary Refill : Less Than 3 Seconds General Appearance: No Apparent Distress, WD/WN, Chronically ill Respiratory: Chest Non Tender, Lungs Clear, Normal Breath Sounds, No Accessory Muscle Use, No Respiratory Distress, Decreased Breath Sounds Cardiovascular: Regular Rate, Rhythm, No Edema, No Gallop, No JVD, No Murmur, Normal Peripheral Pulses Neurologic/Psychiatric: Alert, Oriented x3, No Motor/Sensory Deficits, Normal Mood/Affect Results/Procedures Lab Laboratory Tests 10/23/20 04:10 Patient resulted labs reviewed. Assessment/Plan Assessment and Plan Assess & Plan/Chief Complaint Assessment: COVID-19 PNA AECOPD O2 dependence at home CAD HTN HLP Sepsis episode with elevated lactic acid and hypotension 10/19/20 Plan: COVID-19 treatment with Decadron Abx Lovenox Antivirals not required CVP 10/18/20: COVID-19 treatment with Decadron and CVP Monitor O2 sats Increase insulin 10/19/20: Transfer to [facility] Sepsis protocol PNA treatment IVF Consult Dr Gutierrez fsr 10/20/20: Much improved status DC Metformin Monitor BP and O2 10/21/20: Abx Supportive care 12/20/20: HLIVF PT OT Diagnosis/Problems Diagnosis/Problems (1) COVID-19 Status: Acute (2) COPD exacerbation Status: Acute (3) CAD (coronary artery disease) Status: Chronic (4) HLD (hyperlipidemia) Status: Chronic (5) Supplemental oxygen dependent Status: Chronic (6) DVT prophylaxis Status: Acute (7) COPD (chronic obstructive pulmonary disease) Status: Chronic (8) Hypothyroidism Status: Chronic (9) Mixed hyperlipidemia Status: Chronic (10) HTN (hypertension) Status: Chronic (11) Non-insulin dependent type 2 diabetes mellitus Status: Chronic (12) History of coronary artery bypass graft x 3 Status: Chronic Clinical Quality Measures DVT/VTE Risk/Contraindication: Risk Factor Score Per Nursin RFS Level Per Nursing on Admit: 4+=Very High CHAPIS MARY DO Oct 22, 2020 07:27
[2020-10-22 08:00] VITALS: BP 192/80
[2020-10-22] MEDS: SENNA W/DOCUSATE (SENOKOT S) TABLET PO SCH ×2 (08:33→21:06)
[2020-10-22] MEDS: ASPIRIN E.C. 81 MG (ECOTRIN) TAB PO SCH (08:33)
[2020-10-22] MEDS: RANOLAZINE ER 500 MG TAB (RANEXA) PO SCH ×2 (08:33→21:06)
[2020-10-22] MEDS: CLOPIDOGREL 75 MG (PLAVIX) TABLET PO SCH (08:33)
[2020-10-22] MEDS: LOSARTAN 100 MG (COZAAR) TABLET PO SCH (08:33)
[2020-10-22] MEDS: dexAMETHasone 6 MG TAB (DECADRON) PO SCH (08:33)
[2020-10-22] MEDS: FENOFIBRATE 134 MG (LOFIBRA) CAPSULE PO SCH (08:33)
[2020-10-22] MEDS: LINAGLIPTIN (TRADJENTA) 5 MG TABLET PO SCH (08:33)
[2020-10-22] MEDS: ISOSORBIDE MONONITRATE 60 MG (IMDUR) TAB PO SCH (08:34)
[2020-10-22] MEDS: ENOXAPARIN 40 MG/0.4 ML (LOVENOX) SYR SC SCH ×2 (08:34→21:06)
[2020-10-22] MEDS: ADVAIR HFA 115/21 MCG INHALER 8 GM IH SCH ×3 (12:14→22:01)
[2020-10-22] MEDS: IBUPROFEN 600 MG (MOTRIN) TAB PO PRN (13:26)
[2020-10-22 16:37] VITALS: BP 150/70
[2020-10-22] MEDS: PANTOPRAZOLE 40 MG (PROTONIX) TAB PO SCH (17:47)
[2020-10-22 23:55] VITALS: BP 147/75
[2020-10-23] MEDS: RT-ALBUTEROL INHALER HFA (VENTOLIN HFA) 18 GM IH SCH ×3 (02:33→10:38)
[2020-10-23 04:38] LABS: BASOPHILS % (AUTO) 0 % (0-10); EOSINOPHILS % (AUTO) 1 % (0-10); HEMATOCRIT 32 % (35-52); HEMOGLOBIN 9.9 g/dL (11.5-16.0); LYMPHOCYTES # (AUTO) 2.2 10^3/uL (1.0-4.0); LYMPHOCYTES % (AUTO) 34 % (12-44); MEAN CORPUSCULAR HEMOGLOBIN 28 pg (25-34); MEAN CORPUSCULAR HGB CONC 31 g/dL (32-36); MEAN CORPUSCULAR VOLUME 90 fL (80-99); MEAN PLATELET VOLUME 10.5 fL (9.0-12.2); MONOCYTES # (AUTO) 0.4 10^3/uL (0.0-1.0); MONOCYTES % (AUTO) 7 % (0-12); NEUTROPHILS # (AUTO) 3.6 10^3/uL (1.8-7.8); NEUTROPHILS % (AUTO) 55 % (42-75); PLATELET COUNT 327 10^3/uL (130-400); WHITE BLOOD COUNT 6.6 10^3/uL (4.3-11.0)
[2020-10-23 04:47] LABS: ALBUMIN 3.1 GM/DL (3.2-4.5); CHLORIDE 107 MMOL/L (98-107); POTASSIUM 3.6 MMOL/L (3.6-5.0); SODIUM 140 MMOL/L (135-145)
[2020-10-23 04:48] LABS: CALCIUM 8.2 MG/DL (8.5-10.1)
[2020-10-23 04:50] LABS: GLUCOSE 126 MG/DL (70-105); TOTAL PROTEIN 6.2 GM/DL (6.4-8.2)
[2020-10-23 04:51] LABS: BILIRUBIN,TOTAL 0.3 MG/DL (0.1-1.0); CARBON DIOXIDE 24 MMOL/L (21-32)
[2020-10-23 04:53] LABS: ALKALINE PHOSPHATASE 40 U/L (40-136); CREATININE SERUM 0.61 MG/DL (0.60-1.30); GFR ESTIMATED > 60
[2020-10-23 04:54] LABS: BUN/CREATININE RATIO 23
[2020-10-23 04:56] LABS: ALANINE AMINOTRANSFERASE 16 U/L (0-55)
[2020-10-23] MEDS: inSUlin ASPART (NovoLOG) 1 UNIT/0.01 ML (CHARGE PER UNIT) SC SCH ×2 (05:14→12:55)
[2020-10-23] MEDS: CEFEPIME INJECTION 1,000 MG in WATER (STERILE) FOR INJECTION 10 ML IV SCH (06:06)
[2020-10-23] MEDS: LEVOTHYROXINE 112 MCG (LEVOTHROID) TAB PO SCH (06:06)
[2020-10-23] MEDS: CATHETER FLUSH 10 ML SYR IV SCH (06:07)
[2020-10-23] MEDS: ADVAIR HFA 115/21 MCG INHALER 8 GM IH SCH (07:18)
[2020-10-23 08:00] VITALS: BP 180/75
[2020-10-23] MEDS: CLOPIDOGREL 75 MG (PLAVIX) TABLET PO SCH (08:34)
[2020-10-23] MEDS: SENNA W/DOCUSATE (SENOKOT S) TABLET PO SCH ×2 (08:34→08:36)
[2020-10-23] MEDS: LOSARTAN 100 MG (COZAAR) TABLET PO SCH (08:34)
[2020-10-23] MEDS: ISOSORBIDE MONONITRATE 60 MG (IMDUR) TAB PO SCH (08:34)
[2020-10-23] MEDS: LINAGLIPTIN (TRADJENTA) 5 MG TABLET PO SCH (08:34)
[2020-10-23] MEDS: dexAMETHasone 6 MG TAB (DECADRON) PO SCH (08:34)
[2020-10-23] MEDS: RANOLAZINE ER 500 MG TAB (RANEXA) PO SCH (08:34)
[2020-10-23] MEDS: FENOFIBRATE 134 MG (LOFIBRA) CAPSULE PO SCH (08:35)
[2020-10-23] MEDS: ENOXAPARIN 40 MG/0.4 ML (LOVENOX) SYR SC SCH (08:35)
[2020-10-23] MEDS: ASPIRIN E.C. 81 MG (ECOTRIN) TAB PO SCH (08:35)
--- NOTE | 2020-10-23 12:39 | Discharge Summary ---
Diagnosis/Chief Complaint Date of Admission Oct 16, 2020 at 16:12 Date of Discharge 10/23/2020 Admission Diagnosis Admission Diagnosis Acute Covid-19 AECOPD O2 Dependent CAD HTN HLD Debility NIDDM Discharge Diagnosis See Above Discharge Summary-Simple/Stand Consultations Discharge Physical Examination Allergies: Coded Allergies: fentanyl (Unverified Allergy, Intermediate, SEVERE NAUSEA/VOMITTING, 06/07/11) morphine (Verified Allergy, Unknown, 07/19/18) tramadol (Verified Allergy, Unknown, 09/01/08) Vitals & I&Os Vital Sign - Last 12Hours Date Time Temp Pulse Resp B/P (MAP) Pulse Ox O2 Delivery O2 Flow Rate FiO2 10/23/20 10:38 97 Room Air 10/23/20 08:00 37.2 64 20 180/75 (110) 10/22/20 20:00 0.00 Intake and Output 10/23/20 00:00 Intake Total 2060 ml Balance 2060 ml General Appearance: Alert, Oriented X3, Cooperative, No Acute Distress HEENT: Mucous Memb Moist/[place] Respiratory: Clear to Auscultation, Normal Air Movement Cardiovascular: Regular Rate, No Murmurs Abdominal: Normal Bowel Sounds, Soft, No Tenderness, No Masses Extremities: No Edema, No Tenderness/Swelling Skin: No Rashes, No Breakdown Neuro: Normal Speech, Sensation Intact, Cranial Nerves 3-12 NL Psych/Mental Status: Mental Status NL, Mood NL Hospital Course Was the Problem List Reviewed?: Yes See final discharge diagnosis. Discussion & Recommendations 75 yo F with oxygen dependent COPD and acute COVID-19 infection. Patient had a fairly uneventful course and was titrated down on her oxygen. This AM she was on RA satting >95%. She was sent home with DME script for walker as she only has a walker with a seat. Encouraged patient to use her home oxygen @ 2L NC with activity. Patient stable this AM and ready for discharge home. Discharge Condition at discharge Stable Instructions to patient/family Please see electronic discharge instructions given to patient. Discharge Medications Reviewed and agree with Discharge Medication list on patient's Discharge Instruction sheet Clinical Quality Measures DVT/VTE Risk/Contraindication: Risk Factor Score Per Nursin RFS Level Per Nursing on Admit: 4+=Very High Copy Copies To 1: JAKY CARRENO MD, HOLLY R MD Oct 23, 2020 12:39
[2020-10-23] MEDS ORDERED: DEXA2TAB PO (12:42)
--- NOTE | 2020-10-23 12:44 | Discharge Summary ---
Discharge [facility] Reconcile Patient Problems Problems Reviewed?: Yes Discharge Medications New, Converted or Re-Newed RX: Transmitted to Pharmacy New Medications: Dexamethasone (Dexamethasone) 2 Mg Tablet 2 MG PO DAILY, #11 TAB Take 2 tabs x 3 days then 1 tab daily x 3 days then 1/2 tab daily x 4 days then stop Continued Medications: Acetaminophen (Acetaminophen) 500 Mg Tablet 1000 MG PO Q6H PRN for PAIN-MILD, TAB TAKES 2 (500 MG) TABLETS Amlodipine Besylate (Amlodipine Besylate) 2.5 Mg Tablet 2.5 MG PO DAILY, TAB Aspirin (Aspirin EC) 81 Mg Tablet.dr 81 MG PO DAILY, TAB Atorvastatin Calcium (Atorvastatin Calcium) 80 Mg Tablet 80 MG PO HS, TAB Budesonide/Formoterol Fumarate (Symbicort 160-4.5 Mcg Inhaler) 10.2 Gm Hfa.aer.ad 2 PUFF INH BID, PUFF Clopidogrel Bisulfate (Clopidogrel) 75 Mg Tablet 75 MG PO DAILY, TAB Empagliflozin (Jardiance) 10 Mg Tablet 10 MG PO DAILY, TAB Fenofibrate (Fenofibrate) 160 Mg Tablet 160 MG PO HS, TAB Fluticasone Propionate (Fluticasone Propionate) 16 Gm Success.susp 1 SPRAY NSEACH BID PRN for ALLERGY SYMPTOMS Isosorbide Mononitrate (Isosorbide Mononitrate ER) 60 Mg Tab 60 MG PO DAILY, TAB Levothyroxine Sodium (Levothyroxine Sodium) 112 Mcg Tablet 112 MCG PO DAILY Meclizine HCl (Meclizine HCl) 12.5 Mg Tablet 12.5-25 MG PO Q6H PRN for VERTIGO, TAB Nystatin (Nystatin) 15 Gm Powder 1 APPLIC TOP DAILY PRN for YEAST, EACH APPLIES UNDER BREAST AND GROIN AREA Pantoprazole Sodium (Pantoprazole Sodium) 40 Mg Tablet.dr 40 MG PO HS, TAB Ranolazine (Ranexa) 1,000 Mg Tab.er.12h 1000 MG PO BID, TAB Sitagliptin Phos/Metformin HCl (Janumet 50-1,000 mg Tablet) 1 Each Tablet 1 EACH PO BID WITH MEALS, TAB Tiotropium [place] (Spiriva Respimat 2.5MCG/ACTUATION) 4 Gm Mist.inhal 2 PUFF INH DAILY, PUFF Valsartan (Valsartan) 160 Mg Tablet 160 MG PO DAILY, TAB Patient Instructions Goal/Follow Up Appt: You have an appt with Dr Carreno on Oct 31 @ 2 pm Return to The Hospital For: Increasing shortness of breath Chest pain Activity & Diet Discharge Diet: ADA Diet, Cardiac Diet Activity as Tolerated: Yes Copy Copies To 1: JAKY CARRENO MD, HOLLY R MD Oct 23, 2020 12:44
--- NOTE | 2020-10-23 14:32 | NUR ---
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 Plan: Pt will return home - and she has requested that the walker be delivered to her home Summary: Pt is ready to go home. She indicates that she does not want to wait until the walker can be delivered. DME is called and they are able to deliver the walker to pt's home. Pt's address and phone number is verified. Pt is fine to get the walker later. Information is faxed [phone] to [employer].
== END 2020-10-23 13:15 | disposition home or self-care (01) ==
LOC: EDUNIT# 15:01 → ER 15:04 → 4TH 16:12 → INTOOBSV 16:12 → CSD 10-19 12:40 → 4TH 10-20 18:30
PROVIDERS: ADMIT Internal Medicine; ATTEND Family Medicine
DX: U07.1 COVID-19 (principal); J44.1 Chronic obstructive pulmonary disease with (acute) exacerbation; I25.10 Atherosclerotic heart disease of native coronary artery without angina pectoris; I10 Essential (primary) hypertension; E78.5 Hyperlipidemia, unspecified; E11.9 Type 2 diabetes mellitus without complications; E78.00 Pure hypercholesterolemia, unspecified; K21.00 Gastro-esophageal reflux disease with esophagitis, without bleeding; K44.9 Diaphragmatic hernia without obstruction or gangrene; E03.9 Hypothyroidism, unspecified; M19.90 Unspecified osteoarthritis, unspecified site; G89.29 Other chronic pain; Z79.82 Long term (current) use of aspirin; Z79.899 Other long term (current) drug therapy; Z88.5 Allergy status to narcotic agent; Z87.891 Personal history of nicotine dependence; Z86.73 Personal history of transient ischemic attack (TIA), and cerebral infarction without residual deficits; Z95.5 Presence of coronary angioplasty implant and graft; Z90.710 Acquired absence of both cervix and uterus
CPT/HCPCS: 36410; 71045 ×2; 76937; 80053 ×8; 81000; 82805 ×2; 82962 ×6; 83605; 83735; 83880; 84100; 84145 ×2; 85025 ×8; 85379; 86900; 86901; 87040; 93005; 94640 ×9; 94760 ×4; 97161; 99285; P9017; 36415

== ENCOUNTER → 2021-05-14 | Outpatient (CLI) | payer MEDICARE, MEDICAID ==
[~2021-05-14] MED LIST changes: +AMLO2.5T4 PO; +ATOR80TA76 PO; +BUDE10.2 INH; +DEXA2TAB PO; +EMPA10TA PO; +ISOS60TA63 PO; -MECL-173 PO; +MECL-215 PO; +NYST15PO4 TOP; +RT-ALBUTEROL SULF 2.5 MG/3 ML PRE-MIX VIAL INH ONE; +TIOT4MIS2 INH; +VALS160T29 PO
--- NOTE | 2021-05-14 15:50 | Diagnostic Imaging Report ---
EXAMINATION: CT chest without contrast (lung screening). TECHNIQUE: Multiple contiguous axial images were obtained through the chest without the use of intravenous contrast according to lung cancer screening protocol. All CT scans use one or more of the following dose optimizing techniques: automated exposure control, MA and/or KvP adjustment based on patient size and exam type or iterative reconstruction. HISTORY: [id number] history of smoking. COMPARISON: 05/11/2020. FINDINGS: There is no edema or pneumonia. No pleural effusion. No pneumothorax. No suspicious nodules. There is no axillary or supraclavicular lymphadenopathy. There is no mediastinal lymphadenopathy. There has been coronary artery bypass grafting. Heart size is normal. There are moderate coronary artery calcifications. No pericardial effusion. Aorta is normal in caliber. Limited views of the upper abdomen are unremarkable. There are no suspicious osseous lesions. IMPRESSION: 1. No suspicious pulmonary nodules. LUNG-RADS CATEGORY: 1 MODIFIER: None. Dictated by: Dictated on workstation # [id number]
== END ==
LOC: RAD 12:26
PROVIDERS: ATTEND Internal Medicine Critical Care Medicine
DX: Z12.2 Encounter for screening for malignant neoplasm of respiratory organs (principal); Z87.891 Personal history of nicotine dependence
CPT/HCPCS: 71271; 94060

== ENCOUNTER 2021-05-16 15:23 | Emergency (ER) | payer MEDICARE, MEDICAID ==
[~2021-05-16] VITALS: Ht 152 cm; Wt 69.3 kg
[~2021-05-16 15:23] MED LIST changes: -RT-ALBUTEROL SULF 2.5 MG/3 ML PRE-MIX VIAL INH ONE
--- NOTE | 2021-05-16 16:21 | ED General ---
General Chief Complaint: General Problems/Pain Stated Complaint: WEAKNESS Nursing Triage Note: PT CO OF WEAKNESS, PT SENT FROM [facility], PT CO OF SOA,DIARRHEA,SORE THROAT, FATIGURE SINCE YESTERDAY. PT TESTED - FOR COVID AND FLU TODAY AT CLINIC. PT DID HAVE COVID IN OCTOBER. Source of Information: Patient Exam Limitations: No Limitations History of Present Illness Date Seen by Provider: May 16, 2021 Time Seen by Provider: 16:00 Initial Comments To ER from Dr. Jaky Carreno[facility] clinic with reports of general weakness onset yesterday. Complains of sore throat shortness of breath diarrhea and fatigue since yesterday. She had Covid in October. She is unvaccinated against Covid. She had Covid test at [facility] today prior to coming here and it was negative. Timing/Duration: 1-2 Days Severity: Moderate Associated Systoms: Malaise Allergies and Home Medications Allergies Coded Allergies: fentanyl (Unverified Allergy, Intermediate, SEVERE NAUSEA/VOMITTING, 06/07/11) morphine (Verified Allergy, Unknown, 07/19/18) tramadol (Verified Allergy, Unknown, 09/01/08) Home Medications Acetaminophen 500 Mg Tablet, 1,000 MG PO Q6H PRN for PAIN-MILD, (Reported) TAKES 2 (500 MG) TABLETS Amlodipine Besylate 2.5 Mg Tablet, 2.5 MG PO DAILY, (Reported) Aspirin 81 Mg Tablet.dr, 81 MG PO DAILY, (Reported) Atorvastatin Calcium 80 Mg Tablet, 80 MG PO HS, (Reported) Budesonide/Formoterol Fumarate 10.2 Gm Hfa.aer.ad, 2 PUFF INH BID, (Reported) Clopidogrel Bisulfate 75 Mg Tablet, 75 MG PO DAILY, (Reported) Dexamethasone 2 Mg Tablet, 2 MG PO DAILY Take 2 tabs x 3 days then 1 tab daily x 3 days then 1/2 tab daily x 4 days then stop Prescribed by: ALLAN GUZMAN on 10/23/20 1242 Empagliflozin 10 Mg Tablet, 10 MG PO DAILY, (Reported) Fenofibrate 160 Mg Tablet, 160 MG PO HS, (Reported) Fluticasone Propionate 16 Gm [place].susp, 1 SPRAY NSEACH BID PRN for ALLERGY SYMPTOMS, (Reported) Isosorbide Mononitrate 60 Mg Tab, 60 MG PO DAILY, (Reported) Levothyroxine Sodium 112 Mcg Tablet, 112 MCG PO DAILY, (Reported) Meclizine HCl 12.5 Mg Tablet, 12.5-25 MG PO Q6H PRN for VERTIGO, (Reported) Nystatin 15 Gm Powder, 1 APPLIC TOP DAILY PRN for YEAST, (Reported) APPLIES UNDER BREAST AND GROIN AREA Pantoprazole Sodium 40 Mg Tablet.dr, 40 MG PO HS, (Reported) Ranolazine 1,000 Mg Tab.er.12h, 1,000 MG PO BID, (Reported) Sitagliptin Phos/Metformin HCl 1 Each Tablet, 1 EACH PO BID WITH MEALS, (Reported) Tiotropium Costilla 4 Gm Mist.inhal, 2 PUFF INH DAILY, (Reported) Valsartan 160 Mg Tablet, 160 MG PO DAILY, (Reported) Patient Home Medication List Home Medication List Reviewed: Yes Review of Systems Review of Systems Constitutional: see HPI EENTM: see HPI Respiratory: no symptoms reported, see HPI, cough Cardiovascular: no symptoms reported Genitourinary: no symptoms reported Musculoskeletal: no symptoms reported Skin: no symptoms reported Psychiatric/Neurological: No Symptoms Reported Hematologic/Lymphatic: No Symptoms Reported Past Ecjkhyy-Lczmou-Aqiqsv Hx Patient Social History Tobacco Use?: No Substance use?: No Alcohol Use?: No Pt feels they are or have been: No Immunizations Up To Date Tetanus Booster (TDap): Unknown PED Vaccines UTD: Yes COVID19 Vaccine Quality Measurement Specialist: REFUSES VACCINE Seasonal Allergies Seasonal Allergies: No Past Medical History Surgeries: Yes (triple bypass, partial hyst, heart stent, heart cath,) Cardiac, CABG, Coronary Stent, Gallbladder, Hysterectomy Respiratory: Yes (O2 WITH ANY ACTIVITY AND AT HS) Pneumonia, COPD Currently Using CPAP: No Currently Using BIPAP: No Cardiac: Yes (BRADYCARDIA) Coronary Artery Disease, Heart Attack, High Cholesterol, Hypertension Neurological: Yes Stroke Reproductive Disorders: No Sexually Transmitted Disease: No HIV/AIDS: No Genitourinary: No Gastrointestinal: Yes Gastroesophageal Reflux, Esophagitis, Hiatal Hernia Musculoskeletal: Yes Arthritis, Chronic Back Pain Endocrine: Yes Hypothyroidsim, Diabetes, Non-Insulin dep HEENT: No Cancer: No Psychosocial: No Integumentary: No Blood Disorders: No Adverse Reaction/Blood Tranf: No Family Medical History Arthritis 19 FATHER Asthma 19 MOTHER Cardiovascular disease 19 MOTHER G8 BROTHER G8 SISTER G8 SISTER G8 SISTER Cataracts 19 FATHER Diabetes mellitus 19 MOTHER G8 BROTHER G8 SISTER G8 SISTER G8 SISTER Hypertension 19 MOTHER Myocardial infarction 19 MOTHER G8 SISTER G8 SISTER Parkinson's disease G8 BROTHER Prostate cancer 19 FATHER Respiratory disorder G8 BROTHER Thyroid disease 19 MOTHER Physical Exam Vital Signs Vital Signs - First Documented 05/16/21 15:34 Temp 36.8 Pulse 79 Resp 18 B/P (MAP) 131/77 (95) Pulse Ox 94 O2 Delivery Room Air Capillary Refill : Less Than 3 Seconds Height, Weight, BMI Height: 5'0" Weight: 161lbs. 11.2oz. 73.757447lp; 29.00 BMI Method:Stated General Appearance: No Apparent Distress, WD/WN Eyes: Bilateral Eye Normal Inspection, Bilateral Eye PERRL, Bilateral Eye EOMI Neck: Full Range of Motion, Normal Inspection Respiratory: Lungs Clear, Normal Breath Sounds, No Accessory Muscle Use, No Respiratory Distress Cardiovascular: Regular Rate, Rhythm, Normal Peripheral Pulses Gastrointestinal: Normal Bowel Sounds, Non Tender, Soft Extremity: Normal Capillary Refill, Normal Inspection Neurologic/Psychiatric: Alert, Oriented x3 Skin: Normal Color, Warm/Dry Focused Exam Lactate Level 05/16/21 16:00: Lactic Acid Level 1.58 Lactic Acid Level Laboratory Tests Test 05/16/21 16:00 Lactic Acid Level 1.58 MMOL/L (0.50-2.00) Progress/Results/Core Measures Suspected Sepsis SIRS Temperature: Pulse: 79 Respiratory Rate: 18 Laboratory Tests 05/16/21 16:00: White Blood Count 10.5 Blood Pressure 131 /77 Mean: 95 05/16/21 16:00: Lactic Acid Level 1.58 Laboratory Tests 05/16/21 16:00: Creatinine 0.67, INR Comment 1.1, Platelet Count 187, Total Bilirubin 0.4 Results/Orders Lab Results Laboratory Tests Test 05/16/21 16:00 05/16/21 16:29 Range/Units White Blood Count 10.5 4.3-11.0 10^3/uL Red Blood Count 4.25 3.80-5.11 10^6/uL Hemoglobin 12.0 11.5-16.0 g/dL Hematocrit 38 35-52 % Mean Corpuscular Volume 89 80-99 fL Mean Corpuscular Hemoglobin 28 25-34 pg Mean Corpuscular Hemoglobin Concent 32 32-36 g/dL Red Cell Distribution Width 15.4 H 10.0-14.5 % Platelet Count 187 130-400 10^3/uL Mean Platelet Volume 10.6 9.0-12.2 fL Immature Granulocyte % (Auto) 1 % Neutrophils (%) (Auto) 81 H 42-75 % Lymphocytes (%) (Auto) 14 12-44 % Monocytes (%) (Auto) 4 0-12 % Eosinophils (%) (Auto) 0 0-10 % Basophils (%) (Auto) 0 0-10 % Neutrophils # (Auto) 8.4 H 1.8-7.8 10^3/uL Lymphocytes # (Auto) 1.5 1.0-4.0 10^3/uL Monocytes # (Auto) 0.4 0.0-1.0 10^3/uL Eosinophils # (Auto) 0.0 0.0-0.3 10^3/uL Basophils # (Auto) 0.0 0.0-0.1 10^3/uL Immature Granulocyte # (Auto) 0.1 0.0-0.1 10^3/uL Percent Immature Platelet Fraction 4.5 0.0-7.6 % Prothrombin Time 14.7 12.2-14.7 SEC INR Comment 1.1 0.8-1.4 Activated Partial Thromboplast Time 32 24-35 SEC Sodium Level 136 135-145 MMOL/L Potassium Level 3.5 L 3.6-5.0 MMOL/L Chloride Level 100 98-107 MMOL/L Carbon Dioxide Level 24 21-32 MMOL/L Anion Gap 12 5-14 MMOL/L Blood Urea Nitrogen 10 7-18 MG/DL Creatinine 0.67 0.60-1.30 MG/DL Estimat Glomerular Filtration Rate > 60 BUN/Creatinine Ratio 15 Glucose Level 123 H 70-105 MG/DL Lactic Acid Level 1.58 0.50-2.00 MMOL/L Calcium Level 8.9 8.5-10.1 MG/DL Corrected Calcium 9.1 8.5-10.1 MG/DL Total Bilirubin 0.4 0.1-1.0 MG/DL Aspartate Amino Transf (AST/SGOT) 17 5-34 U/L Alanine Aminotransferase (ALT/SGPT) 18 0-55 U/L Alkaline Phosphatase 60 40-136 U/L Total Protein 7.1 6.4-8.2 GM/DL Albumin 3.7 3.2-4.5 GM/DL Urine Color DARK YELLOW Urine Clarity CLEAR Urine pH 5.5 5-9 Urine Specific [place] >=1.030 1.016-1.022 Urine Protein TRACE H NEGATIVE Urine Glucose (UA) NEGATIVE NEGATIVE Urine Ketones NEGATIVE NEGATIVE Urine Nitrite NEGATIVE NEGATIVE Urine Bilirubin 1+ H NEGATIVE Urine Urobilinogen 0.2 < = 1.0 MG/DL Urine Leukocyte Esterase TRACE H NEGATIVE Urine RBC (Auto) NEGATIVE NEGATIVE Urine RBC RARE /HPF Urine WBC 2-5 /HPF Urine Squamous Epithelial Cells 0-2 /HPF Urine Crystals NONE /LPF Urine Bacteria TRACE /HPF Urine Casts PRESENT /LPF Urine Hyaline Casts RARE /LPF Urine Mucus SMALL H /LPF Urine Culture Indicated NO My Orders Orders - NALLELY BOLES APRN Cbc With Automated Diff (05/16/21 16:21) Comprehensive Metabolic Panel (05/16/21 16:21) Blood Culture (05/16/21 16:21) Sputum Culture (05/16/21 16:21) Urinalysis (05/16/21 16:21) Urine Culture (05/16/21 16:21) Protime With Inr (05/16/21 16:21) Partial Thromboplastin Time (05/16/21 16:21) Chest 1 View, Ap/Pa Only (05/16/21 16:21) Ed Iv/Invasive Line Start (05/16/21 16:21) Vital Signs Adult Sepsis Patie Q15M (05/16/21 16:21) O2 (05/16/21 16:21) Remove Rings In Anticipation O (05/16/21 16:21) Lactic Acid Analyzer (05/16/21 16:21) Lactated Ringers (Lr 1000 Ml Iv Solution (05/16/21 17:00) Vital Signs/I&O 05/16/21 15:34 Temp 36.8 Pulse 79 Resp 18 B/P (MAP) 131/77 (95) Pulse Ox 94 O2 Delivery Room Air Capillary Refill : Less Than 3 Seconds Blood Pressure Mean: 95 Departure Impression Primary Impression: General weakness Additional Impression: Fatigue Disposition: 01 HOME, SELF-CARE Condition: Stable Departure-Patient Inst. Decision time for Depature: 17:40 Referrals: [facility] (PCP/Family) Primary Care Physician Patient Instructions: Fatigue ED Add. Discharge Instructions: 1. Follow-up with your doctor this week return to ER for any concerns. All discharge instructions reviewed with patient and/or family. Voiced understanding. Copy Copies To 1: JAKY CARRENO MD, PETER J APRN May 16, 2021 16:21
[2021-05-16 16:31] LABS: MEAN CORPUSCULAR VOLUME 89 fL (80-99)
[2021-05-16 16:33] LABS: BASOPHILS % (AUTO) 0 % (0-10); EOSINOPHILS % (AUTO) 0 % (0-10); HEMATOCRIT 38 % (35-52); LYMPHOCYTES # (AUTO) 1.5 10^3/uL (1.0-4.0); LYMPHOCYTES % (AUTO) 14 % (12-44); MEAN CORPUSCULAR HEMOGLOBIN 28 pg (25-34); MEAN CORPUSCULAR HGB CONC 32 g/dL (32-36); MEAN PLATELET VOLUME 10.6 fL (9.0-12.2); MONOCYTES # (AUTO) 0.4 10^3/uL (0.0-1.0); MONOCYTES % (AUTO) 4 % (0-12); NEUTROPHILS # (AUTO) 8.4 10^3/uL (1.8-7.8); NEUTROPHILS % (AUTO) 81 % (42-75); PLATELET COUNT 187 10^3/uL (130-400); WHITE BLOOD COUNT 10.5 10^3/uL (4.3-11.0)
[2021-05-16 16:35] LABS: ALBUMIN 3.7 GM/DL (3.2-4.5); CHLORIDE 100 MMOL/L (98-107); POTASSIUM 3.5 MMOL/L (3.6-5.0); SODIUM 136 MMOL/L (135-145)
[2021-05-16 16:36] LABS: CLARITY,URINE CLEAR; GLUCOSE, URINE (UA) NEGATIVE (NEGATIVE); KETONES,URINE NEGATIVE (NEGATIVE); LEUKOCYTE ESTERASE ,URINE TRACE (NEGATIVE); NITRITE,URINE NEGATIVE (NEGATIVE); PH,URINE 5.5 (5-9); PROTEIN,URINE TRACE (NEGATIVE)
[2021-05-16 16:37] LABS: CALCIUM 8.9 MG/DL (8.5-10.1); INR 1.1 (0.8-1.4); PROTHROMBIN TIME PATIENT 14.7 SEC (12.2-14.7)
[2021-05-16 16:38] LABS: GLUCOSE 123 MG/DL (70-105); TOTAL PROTEIN 7.1 GM/DL (6.4-8.2)
[2021-05-16 16:39] LABS: CARBON DIOXIDE 24 MMOL/L (21-32)
--- NOTE | 2021-05-16 16:39 | Diagnostic Imaging Report ---
INDICATION: Lower respiratory infection. EXAMINATION: Portable chest at 04:25 p.m. FINDINGS: There are postop changes from CABG surgery. Heart size and pulmonary vascularity are normal. Lungs are clear. There are no effusions or pneumothoraces. IMPRESSION: Negative chest. Dictated by: Dictated on workstation # [id number]
[2021-05-16 16:40] LABS: BILIRUBIN,TOTAL 0.4 MG/DL (0.1-1.0)
[2021-05-16 16:41] LABS: BILIRUBIN,URINE 1+ (NEGATIVE); COLOR,URINE DARK YELLOW
[2021-05-16 16:41] LABS: ALKALINE PHOSPHATASE 60 U/L (40-136); CREATININE SERUM 0.67 MG/DL (0.60-1.30); GFR ESTIMATED > 60
[2021-05-16 16:42] LABS: BUN/CREATININE RATIO 15
[2021-05-16 16:43] LABS: BACTERIA,URINE TRACE /HPF; RBC,URINE RARE /HPF; SQUAMOUS EPITHELIAL CELL,UR 0-2 /HPF
[2021-05-16 16:44] LABS: ALANINE AMINOTRANSFERASE 18 U/L (0-55)
[2021-05-16 16:44] LABS: HYALINE CASTS, URINE RARE /LPF
[2021-05-16] MEDS ORDERED: LACTATED RINGERS 1,000 ML IV SCH (17:00)
[2021-05-16 19:08] VITALS: BP 127/66
== END 2021-05-16 19:08 | disposition home or self-care (01) ==
LOC: EDUNIT# 15:23 → ER 15:25
DX: R53.1 Weakness (principal); R53.82 Chronic fatigue, unspecified; I10 Essential (primary) hypertension; E11.9 Type 2 diabetes mellitus without complications; J44.9 Chronic obstructive pulmonary disease, unspecified; I25.2 Old myocardial infarction; I25.10 Atherosclerotic heart disease of native coronary artery without angina pectoris; E78.00 Pure hypercholesterolemia, unspecified; K21.9 Gastro-esophageal reflux disease without esophagitis; G89.29 Other chronic pain; M54.9 Dorsalgia, unspecified; E03.9 Hypothyroidism, unspecified; Z79.899 Other long term (current) drug therapy; Z95.1 Presence of aortocoronary bypass graft; Z95.5 Presence of coronary angioplasty implant and graft; Z79.82 Long term (current) use of aspirin; Z79.51 Long term (current) use of inhaled steroids; Z79.84 Long term (current) use of oral hypoglycemic drugs; Z79.890 Hormone replacement therapy; Z86.16 Personal history of COVID-19
CPT/HCPCS: 36415; 71045; 80053; 81000; 83605; 85025; 85610; 85730; 87040; 87088; 93005

== ENCOUNTER → 2021-07-10 | Outpatient (CLI) | payer MEDICARE, MEDICAID ==
--- NOTE | 2021-07-10 11:37 | Diagnostic Imaging Report ---
INDICATION: Postmenopausal state. COMPARISON: 11/13/2017 FINDINGS: AP Spine L1-L4: [BMD (g/cm2): 0.993] [T-Score: -1.7] [Z-Score: 0.0] [BMD Previous: 1.009] [BMD % Change: -1.6] LT Hip Neck: [BMD (g/cm2): 0.775] [T-Score: -1.9] [Z-Score: 0.1] LT Hip Total: [BMD (g/cm2):0.916] [T-Score:-0.7] [Z-Score: 1.1] [BMD Previous: 0.911] [BMD % Change: 0.5] RT Hip Neck: [BMD (g/cm2):0.689] [T-Score:-2.5] [Z-Score:-0.5] RT Hip Total: [BMD (g/cm2):0.815] [T-score:-1.5] [Z-Score:0.3] [BMD Previous:0.851] [BMD % Change:-4.2] *Indicates significant change from prior examination based on 95% confidence level. World Health Organization criteria for BMD interpretation classify patients as Normal (T-score at or above -1.0), Osteopenic (T-score between -1.0 and -2.5) or Osteoporotic (T-score at or below -2.5). LIMITATIONS AND MODIFICATION: None. FRACTURE RISK (FRAX SCORE): The ten year probability of (%): Major Osteoporotic Fracture: [18.0] Hip Fracture: [6.0] IMPRESSION: 1. Osteoporosis. 2. No significant change in bone mineral density since prior examination. 3. See below National Osteoporosis Foundation guidelines on when to potentially initiate pharmacologic therapy. Based on the National Osteoporosis Foundation Guidelines, pharmacologic treatment should be initiated in any of the following, unless clinical conditions suggest otherwise: * Any patient with prior fragility fracture of the hip or vertebrae. A spine fracture indicates 5X risk for subsequent spine fracture and 2X risk for subsequent hip fracture. * Osteoporosis (T-score <-2.5). * Postmenopausal women and men age 50 and older with low bone mass/osteopenia (T-score between -1.0 and -2.5) by DXA and 10-year major osteoporotic fracture greater than 20% or a 10-year probability of hip fracture greater than 3%. These fracture risks are supplied above in the FRAX score, if applicable. * Clinician judgement and/or patient preferences may indicate treatment for people with 10-year fracture probabilities above or below these levels. Dictated by: Dictated on workstation # [id number]
== END ==
LOC: RAD 11:00
PROVIDERS: ATTEND Pediatrics
DX: M81.0 Age-related osteoporosis without current pathological fracture (principal); M85.88 Other specified disorders of bone density and structure, other site; Z78.0 Asymptomatic menopausal state
CPT/HCPCS: 77080

== ENCOUNTER → 2021-12-31 | Outpatient (CLI) | payer MEDICARE, MEDICAID | LOC: CARD 13:00 | PROVIDERS: ATTEND Internal Medicine Cardiovascular Disease | DX: I10 Essential (primary) hypertension (principal); I25.10 Atherosclerotic heart disease of native coronary artery without angina pectoris | CPT/HCPCS: 93306 ==

== ENCOUNTER 2022-02-21 01:02 | Inpatient (IN) | payer MEDICARE, MEDICAID ==
[2022-02-21] VITALS (12 sets, daily range): BP systolic 102–160; BP diastolic 38–96
[~2022-02-21] VITALS: Ht 152.4 cm; Wt 68.2 kg
[2022-02-21] MEDS ORDERED: ASPIRIN 81 MG CHEW (CHILDREN'S ASA) PO ONE (01:15)
[2022-02-21 01:29] LABS: BASOPHILS % (AUTO) 0 % (0-10); EOSINOPHILS # (AUTO) 0.1 10^3/uL (0.0-0.3); EOSINOPHILS % (AUTO) 1 % (0-10); HEMATOCRIT 33 % (35-52); HEMOGLOBIN 10.5 g/dL (11.5-16.0); LYMPHOCYTES # (AUTO) 2.2 10^3/uL (1.0-4.0); LYMPHOCYTES % (AUTO) 32 % (12-44); MEAN CORPUSCULAR HEMOGLOBIN 28 pg (25-34); MEAN CORPUSCULAR HGB CONC 32 g/dL (32-36); MEAN CORPUSCULAR VOLUME 89 fL (80-99); MONOCYTES # (AUTO) 0.6 10^3/uL (0.0-1.0); MONOCYTES % (AUTO) 9 % (0-12); NEUTROPHILS # (AUTO) 3.9 10^3/uL (1.8-7.8); NEUTROPHILS % (AUTO) 58 % (42-75); PLATELET COUNT 282 10^3/uL (130-400); WHITE BLOOD COUNT 6.8 10^3/uL (4.3-11.0)
[2022-02-21 01:39] LABS: ALBUMIN 3.6 GM/DL (3.2-4.5)
[2022-02-21 01:40] LABS: POTASSIUM 3.6 MMOL/L (3.6-5.0)
[2022-02-21 01:41] LABS: CALCIUM 9.2 MG/DL (8.5-10.1)
[2022-02-21 01:42] LABS: TOTAL PROTEIN 6.7 GM/DL (6.4-8.2)
[2022-02-21 01:44] LABS: BILIRUBIN,TOTAL 0.2 MG/DL (0.1-1.0)
[2022-02-21 01:46] LABS: CREATININE SERUM 0.71 MG/DL (0.60-1.30)
[2022-02-21 01:48] LABS: MAGNESIUM 1.2 MG/DL (1.6-2.4)
[2022-02-21 01:56] LABS: CREATINE KINASE MB 0.3 NG/ML (<6.6)
[2022-02-21 04:15] LABS: BASOPHILS % (AUTO) 1 % (0-10); EOSINOPHILS # (AUTO) 0.1 10^3/uL (0.0-0.3); EOSINOPHILS % (AUTO) 1 % (0-10); HEMATOCRIT 31 % (35-52); HEMOGLOBIN 10.1 g/dL (11.5-16.0); LYMPHOCYTES # (AUTO) 2.2 10^3/uL (1.0-4.0); LYMPHOCYTES % (AUTO) 34 % (12-44); MEAN CORPUSCULAR HEMOGLOBIN 29 pg (25-34); MEAN CORPUSCULAR HGB CONC 32 g/dL (32-36); MEAN CORPUSCULAR VOLUME 88 fL (80-99); MEAN PLATELET VOLUME 9.9 fL (9.0-12.2); MONOCYTES # (AUTO) 0.5 10^3/uL (0.0-1.0); MONOCYTES % (AUTO) 8 % (0-12); NEUTROPHILS # (AUTO) 3.6 10^3/uL (1.8-7.8); NEUTROPHILS % (AUTO) 56 % (42-75); PLATELET COUNT 262 10^3/uL (130-400); WHITE BLOOD COUNT 6.4 10^3/uL (4.3-11.0)
[2022-02-21 04:29] LABS: CHLORIDE 102 MMOL/L (98-107); POTASSIUM 3.4 MMOL/L (3.6-5.0); SODIUM 141 MMOL/L (135-145)
[2022-02-21 04:30] LABS: CALCIUM 9.1 MG/DL (8.5-10.1)
[2022-02-21 04:31] LABS: GLUCOSE 162 MG/DL (70-105); TRIGLYCERIDES 188 MG/DL (<150); VLDL CHOLESTEROL 38 MG/DL (5-40)
[2022-02-21 04:32] LABS: CARBON DIOXIDE 25 MMOL/L (21-32)
[2022-02-21 04:34] LABS: CREATININE SERUM 0.66 MG/DL (0.60-1.30); GFR ESTIMATED 90
[2022-02-21 04:36] LABS: BUN/CREATININE RATIO 24; CHOLESTEROL 128 MG/DL (< 200)
[2022-02-21 04:37] LABS: HDL CHOLESTEROL 36 MG/DL (40-60)
[2022-02-21] MEDS ORDERED: HYDROmorphone 2 MG/ML VIAL (DILAUDID) IV PRN (05:15)
[2022-02-21] MEDS ORDERED: ONDANSETRON 4 MG/2 ML (SDV) Z0FRAN IVP PRN (05:15)
[2022-02-21] MEDS ORDERED: NITROGLYCERIN 0.4 MG SL TABS BTL 25'S SL PRN (05:15)
--- NOTE | 2022-02-21 06:20 | Diagnostic Imaging Report ---
INDICATION: Coronary artery disease. COMPARISON: 05/16/2021. FINDINGS: Single view of the chest demonstrates chronic interstitial infiltrates. The heart remains slightly enlarged. There is no pneumothorax. Sternal wires midline. Osseous structures are age-appropriate. IMPRESSION: Cardiac enlargement with chronic appearing infiltrates. Dictated by: Dictated on workstation # [id number]
[2022-02-21] MEDS ORDERED: DULA0.75 SQ (06:42)
--- NOTE | 2022-02-21 06:47 | ED Chest Pain ---
General Chief Complaint: Chest Pain Stated Complaint: CHEST PAIN Nursing Triage Note: PT ARRIVAL TO ER VIA EMS WITH COMPLAINT OF CHEST PAIN SINCE 2300 HOURS. 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 PT HAS SIGNIFICANT CARDIAC HISTORY PER PATIENT. PT DESCRIBED PAIN A SHARP PRESSURE LIKE PAIN THAT RADIATED TO BACK. Nursing Sepsis Screen: No Definite Risk Source: patient, EMS History of Present Illness Date Seen by Provider: Feb 21, 2022 Time Seen by Provider: 01:01 Initial Comments PT ARRIVES VIA EMS FROM HOME PT STATES SHE HAS NOT FELT GOOD ALL DAY--FELT WEAK AND WORN OUT ALL DAY C/O CHEST PAIN THAT BEGAN AT 2300, WHILE SITTING AT COMPUTER PLAYING GAMES PAIN IN CENTER OF CHEST AND CENTER OF BACK + SHORTNESS OF BREATH + SWEATS + NAUSEA, NO VOMITING STATES PAIN WAS 10/10 PT TOOK HER OWN NTG X 3 -FIRST ONE AT 2335, LAST ONE AT MIDNIGHT PAIN IS COMPLETELY GONE NOW, ARE ALL OTHER SYMPTOMS BP 120-130 SYSTOLIC FOR EMS, AND HEART RATE 50-60 FOR EMS ACCUCHECK 139 BY EMS O2 SATS UPPER 90'S ON O2 AT 2L/NC NO TREATMENT BY EMS PT HAD AN OK AND HAS HAD 3 VESSEL CABG IN 2006 STATES THE PAIN AND SYMPTOMS SHE HAD TONIGHT WERE EXACTLY THE SAME WHEN SHE HAD HER HEART ATTACK PT'S LAST CARDIAC CATH HERE WAS 06/18/[address] RODARTE SEVERE MULTIVESSEL CAD, WITH OCCLUDED VEIN GRAFT TO OBTUSE MARGINAL AND SEVERELY ATRETIC GALLEGOS TO THE LAD. NO INTERVENTION DONE AT THAT TIME AND MAXIMIZING MEDICAL THERAPY RECOMMENDED. PT HAD STRESS TEST 07/19/[address] RODARTE EF 64%, BORDERLINE STRESS TEST WITH MILD DECREASED UPTAKE AT MID TO APICAL ANTERIOR WALL WITH MILD REVERSIBILITY. PT HAS COPD, WEARS O2 AT 2L/NC CONTINOUSLY PT IS DIABETIC, WITH HTN, HYPERLIPIDEMIA, GERD. PT SMOKED 2 PPD, QUIT 2008. PCP: DR. DWIGHT CARRENO--HAD ROUTINE EXAM ON FRIDAY. 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 NO CONCERNS OR MEDICATION CHANGES Allergies and Home Medications Allergies Coded Allergies: fentanyl (Unverified Allergy, Intermediate, SEVERE NAUSEA/VOMITTING, 06/07/11) morphine (Verified Allergy, Unknown, 07/19/18) tramadol (Verified Allergy, Unknown, 09/01/08) Patient Home Medication List Home Medication List Reviewed: Yes Acetaminophen (Acetaminophen) 500 Mg Tablet, 1,000 MG PO Q6H PRN for PAIN-MILD, (Reported) Entered as Reported by: DANIEL VENTURA on 12/21/17 1321 Last Action: Reviewed Amlodipine Besylate (Amlodipine Besylate) 2.5 Mg Tablet, 2.5 MG PO DAILY, (Reported) Entered as Reported by: ILA COLEMAN on 10/17/20 1134 Last Action: Reviewed Aspirin (Aspirin EC) 81 Mg Tablet.dr, 81 MG PO DAILY, (Reported) Entered as Reported by: JULIETA TOBIAS on 07/20/18 0848 Last Action: Reviewed Atorvastatin Calcium (Atorvastatin Calcium) 80 Mg Tablet, 80 MG PO HS, (Reported) Entered as Reported by: ILA COLEMAN on 10/17/20 1134 Last Action: Reviewed Cholecalciferol (Vitamin D3) (Vitamin D3) 25 Mcg (1000 Unit) Tablet, 25 MCG PO DAILY, (Reported) Entered as Reported by: ILA COLEMAN on 02/21/22 1013 Last Action: Reviewed Clopidogrel Bisulfate (Clopidogrel) 75 Mg Tablet, 75 MG PO DAILY, (Reported) Entered as Reported by: JULIETA TOBIAS on 05/20/16 0908 Last Action: Reviewed Dulaglutide (Trulicity) 0.75 Mg/0.5 Ml Pen.injctr, 0.75 MG SQ SAT, (Reported) Entered as Reported by: YOSEF KING on 02/21/22 0642 Last Action: Reviewed Fenofibrate (Fenofibrate) 160 Mg Tablet, 160 MG PO HS, (Reported) Entered as Reported by: JULIETA TOBIAS on 07/20/18 0848 Last Action: Reviewed Isosorbide Mononitrate (Isosorbide Mononitrate ER) 60 Mg Tab, 60 MG PO DAILY, (Reported) Entered as Reported by: JULIETA TOBIAS on 05/20/16 0908 Last Action: Reviewed Levothyroxine Sodium (Levothyroxine Sodium) 112 Mcg Tablet, 112 MCG PO DAILY, (Reported) Entered as Reported by: ILA COLEMAN on 01/04/20 1031 Last Action: Reviewed Meclizine HCl (Meclizine HCl) 25 Mg Tablet, 25 MG PO TID PRN for DIZZINESS Prescribed by: CHAPIS MARY on 02/22/22 1058 Metformin HCl (Metformin HCl) 1,000 Mg Tablet, 1,000 MG PO DAILY Prescribed by: AZAR RODARTE on 02/22/22 0844 Nitroglycerin (Nitroglycerin) 0.4 Mg Tab.subl, 0.4 MG SL UD PRN for CHEST PAIN, (Reported) Entered as Reported by: ILA COLEMAN on 02/21/22 1013 Last Action: Reviewed Pantoprazole Sodium (Pantoprazole Sodium) 40 Mg Tablet.dr, 40 MG PO HS, (Reported) Entered as Reported by: DANIEL VENTURA on 12/21/17 1136 Last Action: Reviewed Ranolazine (Ranolazine ER) 1,000 Mg Tab.er.12h, 1,000 MG PO BID, (Reported) Entered as Reported by: ILA COLEMAN on 02/21/22 1013 Last Action: Reviewed Valsartan (Valsartan) 160 Mg Tablet, 160 MG PO DAILY, (Reported) Entered as Reported by: ILA COLEMAN on 10/17/20 1134 Last Action: Reviewed Discontinued Medications Budesonide/Formoterol Fumarate (Symbicort 160-4.5 Mcg Inhaler) 10.2 Gm Hfa.aer.ad, 2 PUFF INH BID, (Reported) Discontinued Reason: No Longer Taking Entered as Reported by: ILA COLEMAN on 10/17/20 1134 Last Action: Discontinued Empagliflozin (Jardiance) 10 Mg Tablet, 10 MG PO DAILY, (Reported) Discontinued Reason: No Longer Taking Entered as Reported by: BILLY BIRD on 10/16/20 1807 Last Action: Discontinued Meclizine HCl (Meclizine HCl) 12.5 Mg Tablet, 12.5-25 MG PO Q6H PRN for VERTIGO, (Reported) Entered as Reported by: ILA COLEMAN on 01/04/20 1032 Last Action: Reviewed Ranolazine (Ranexa) 1,000 Mg Tab.er.12h, 1,000 MG PO BID, (Reported) Discontinued Reason: Duplicate Order Entered as Reported by: JULIETA TOBIAS on 05/20/16 0908 Last Action: Discontinued Sitagliptin Phos/Metformin HCl (Janumet 50-1,000 mg Tablet) 1 Each Tablet, 1 EACH PO DAILY, (Reported) Discontinued Reason: No Longer Taking Entered as Reported by: CARLOS EDUARDO CORBETT on 01/03/20 1026 Last Action: Discontinued Tiotropium [place] (Spiriva Respimat 2.5MCG/ACTUATION) 4 Gm Mist.inhal, 2 PUFF INH DAILY, (Reported) Discontinued Reason: No Longer Taking Entered as Reported by: ILA COLEMAN on 10/17/20 6659 Last Action: Discontinued Review of Systems Review of Systems Constitutional: see HPI, diaphoresis, malaise, weakness EENTM: No Symptoms Reported Respiratory: See HPI, Shortness of Air Cardiovascular: See HPI, Chest Pain; Denies Edema, Denies Lightheadedness, Denies Palpitations, Denies Syncope Gastrointestinal: See HPI; Denies Abdominal Pain; Nausea; Denies Vomiting Genitourinary: No Symptoms Reported Musculoskeletal: see HPI, back pain Skin: no symptoms reported Psychiatric/Neurological: No Symptoms Reported Endocrine: No Symptoms Reported Hematologic/Lymphatic: No Symptoms Reported Past Uhzjfyq-Rlxyln-Clhrdf Hx Patient Social History Tobacco Use?: No Smoking Status: Never a Smoker Use of E-Cig and/or Vaping dev: No Substance use?: No Alcohol Use?: No Pt feels they are or have been: No Immunizations Up To Date Tetanus Booster (TDap): Unknown PED Vaccines UTD: Yes Influenza Vaccine Up-to-Date: Yes; Up-to-Date Seasonal Allergies Seasonal Allergies: No Past Medical History Surgeries: Yes (triple bypass, partial hyst, heart stent, heart cath,) Cardiac, CABG, Gallbladder, Hysterectomy Respiratory: Yes (O2 WITH ANY ACTIVITY AND AT HS) Pneumonia, COPD Currently Using CPAP: No Currently Using BIPAP: No Cardiac: Yes (BRADYCARDIA; 3 VESSEL CABG 2006; CAROTID DISEASE) Coronary Artery Disease, Heart Attack, High Cholesterol, Hypertension Neurological: Yes Stroke Reproductive Disorders: No Sexually Transmitted Disease: No HIV/AIDS: No Genitourinary: No Gastrointestinal: Yes Gastroesophageal Reflux, Esophagitis, Hiatal Hernia Musculoskeletal: Yes Arthritis, Chronic Back Pain Endocrine: Yes Hypothyroidsim, Diabetes, Non-Insulin dep HEENT: No Cancer: No Psychosocial: No Integumentary: No Blood Disorders: No Adverse Reaction/Blood Tranf: No Family Medical History Arthritis 19 FATHER Asthma 19 MOTHER Cardiovascular disease 19 MOTHER G8 BROTHER G8 SISTER G8 SISTER G8 SISTER Cataracts 19 FATHER Diabetes mellitus 19 MOTHER G8 BROTHER G8 SISTER G8 SISTER G8 SISTER Hypertension 19 MOTHER Myocardial infarction 19 MOTHER G8 SISTER G8 SISTER Parkinson's disease G8 BROTHER Prostate cancer 19 FATHER Respiratory disorder G8 BROTHER Thyroid disease 19 MOTHER Physical Exam Vital Signs Vital Signs - First Documented 02/21/22 01:08 Pulse Ox 100 O2 Delivery Room Air Capillary Refill : Less Than 3 Seconds Height, Weight, BMI Height: 5'0" Weight: 161lbs. 11.2oz. 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 Norm as Tested Skin: Normal Color, Warm/Dry Progress/Results/Core Measures Results/Orders Lab Results Laboratory Tests Test 02/21/22 01:08 Range/Units White Blood Count 6.8 4.3-11.0 10^3/uL Red Blood Count 3.72 L 3.80-5.11 10^6/uL Hemoglobin 10.5 L 11.5-16.0 g/dL Hematocrit 33 L 35-52 % Mean Corpuscular Volume 89 80-99 fL Mean Corpuscular Hemoglobin 28 25-34 pg Mean Corpuscular Hemoglobin Concent 32 32-36 g/dL Red Cell Distribution Width 14.3 10.0-14.5 % Platelet Count 282 130-400 10^3/uL Mean Platelet Volume 10.0 9.0-12.2 fL Immature Granulocyte % (Auto) 0 % Neutrophils (%) (Auto) 58 42-75 % Lymphocytes (%) (Auto) 32 12-44 % Monocytes (%) (Auto) 9 0-12 % Eosinophils (%) (Auto) 1 0-10 % Basophils (%) (Auto) 0 0-10 % Neutrophils # (Auto) 3.9 1.8-7.8 10^3/uL Lymphocytes # (Auto) 2.2 1.0-4.0 10^3/uL Monocytes # (Auto) 0.6 0.0-1.0 10^3/uL Eosinophils # (Auto) 0.1 0.0-0.3 10^3/uL Basophils # (Auto) 0.0 0.0-0.1 10^3/uL Immature Granulocyte # (Auto) 0.0 0.0-0.1 10^3/uL Prothrombin Time 14.0 12.2-14.7 SEC INR Comment 1.0 0.8-1.4 Activated Partial Thromboplast Time 28 24-35 SEC Sodium Level 139 135-145 MMOL/L Potassium Level 3.6 3.6-5.0 MMOL/L Chloride Level 100 98-107 MMOL/L Carbon Dioxide Level 25 21-32 MMOL/L Anion Gap 14 5-14 MMOL/L Blood Urea Nitrogen 18 7-18 MG/DL Creatinine 0.71 0.60-1.30 MG/DL Estimat Glomerular Filtration Rate 88 BUN/Creatinine Ratio 25 Glucose Level 171 H 70-105 MG/DL Calcium Level 9.2 8.5-10.1 MG/DL Corrected Calcium 9.5 8.5-10.1 MG/DL Magnesium Level 1.2 L 1.6-2.4 MG/DL Total Bilirubin 0.2 0.1-1.0 MG/DL Aspartate Amino Transf (AST/SGOT) 12 5-34 U/L Alanine Aminotransferase (ALT/SGPT) 12 0-55 U/L Alkaline Phosphatase 57 40-136 U/L Total Creatine Kinase 27 L 29-168 U/L Creatine Kinase MB 0.3 <6.6 NG/ML Myoglobin 19.1 10.0-92.0 NG/ML Troponin I < 0.028 <0.028 NG/ML B-Type Natriuretic Peptide 143.1 H <100.0 PG/ML Total Protein 6.7 6.4-8.2 GM/DL Albumin 3.6 3.2-4.5 GM/DL Amylase Level 31 25-125 U/L Lipase 32 8-78 U/L My Orders Orders - TRISHA DUNN DO Cbc With Automated Diff (02/21/22 01:09) Magnesium (02/21/22 01:09) Chest 1 View, Ap/Pa Only (02/21/22 01:09) Ekg Tracing (02/21/22 01:09) Comprehensive Metabolic Panel (02/21/22 01:09) Myoglobin Serum (02/21/22 01:09) Protime With Inr (02/21/22 01:09) Partial Thromboplastin Time (02/21/22 01:09) O2 (02/21/22 01:09) Monitor-Rhythm Ecg Trace Only (02/21/22 01:09) Ed Iv/Invasive Line Start (02/21/22 01:09) Creatine Kinase (02/21/22 01:09) Creatine Kinase Mb (02/21/22 01:09) Lipase (02/21/22 01:09) Amylase (02/21/22 01:09) Bnp [place] (02/21/22 01:09) Troponin I Alist[place] (02/21/22 01:09) Aspirin Chewable Tablet (Baby Aspirin Ch (02/21/22 01:15) Medications Given in ED Vital Signs/I&O 02/21/22 01:08 Pulse Ox 100 O2 Delivery Room Air Blood Pressure Mean: 73 Progress Progress Note : Progress Note GIVEN ASPIRIN 324 MG NO PAIN OR ANY OTHER SYMPTOMS DURING ER STAY Initial ECG Impression Date: Feb 21, 2022 Initial ECG Impression Time: 01:11 Initial ECG Rate: 55 Initial ECG Rhythm: Normal Sinus Initial ECG Impression: Nonspecific Changes Diagnostic Imaging Comments CXR--NO ACUTE PROCESS, PENDING RADIOLOGIST REVIEW Reviewed: Reviewed by Me Departure Communication (Admissions) 221--SPOKE WITH DR. MARY, HOSPITALIST. ACCEPTS PT FOR ADMIT. WILL CONSULT CARDIOLOGY IN AM Impression Primary Impression: Chest pain Additional Impressions: CAD (coronary artery disease) COPD (chronic obstructive pulmonary disease) Non-insulin dependent type 2 diabetes mellitus HTN (hypertension) Disposition: ADMITTED INPATIENT Condition: Stable Admissions Decision to Admit Reason: Admit from ER (General) Decision to Admit/Date: Feb 21, 2022 Time/Decision to Admit Time: 02:25 Departure-Patient Inst. Referrals: [facility] (PCP/Family) Primary Care Physician Scripts Meclizine HCl (Meclizine HCl) 25 Mg Tablet 25 MG PO TID PRN for DIZZINESS, #60 TAB Prov: CHAPIS MARY DO 02/22/22 Metformin HCl (Metformin HCl) 1,000 Mg Tablet 1000 MG PO DAILY, #1 TAB Hold metformin for 48 hours Prov: AZAR RODARTE MD 02/22/22 TRISHA DUNN DO Feb 21, 2022 06:47
[2022-02-21] MEDS: inSUlin ASPART (NovoLOG) 1 UNIT/0.01 ML (CHARGE PER UNIT) SC SCH ×4 (07:00→21:25)
[2022-02-21] MEDS: CATHETER FLUSH 10 ML SYR IVP SCH ×3 (07:01→21:23)
--- NOTE | 2022-02-21 07:18 | Tele-ICU Consult ---
History of Present Illness History of Present Illness Date Seen by Provider: Feb 21, 2022 Time Seen by Provider: 07:15 Date of Admission PT ARRIVES VIA EMS FROM HOME PT STATES SHE HAS NOT FELT GOOD ALL DAY--FELT WEAK AND WORN OUT ALL DAY C/O CHEST PAIN THAT BEGAN AT 2300, WHILE SITTING AT COMPUTER PLAYING GAMES PAIN IN CENTER OF CHEST AND CENTER OF BACK + SHORTNESS OF BREATH + SWEATS + NAUSEA, NO VOMITING STATES PAIN WAS 10/10 PT TOOK HER OWN NTG X 3 -FIRST ONE AT 2335, LAST ONE AT MIDNIGHT PAIN IS COMPLETELY GONE NOW, ARE ALL OTHER SYMPTOMS BP 120-130 SYSTOLIC FOR EMS, AND HEART RATE 50-60 FOR EMS ACCUCHECK 139 BY EMS O2 SATS UPPER 90'S ON O2 AT 2L/NC NO TREATMENT BY EMS ED COURSE PT HAD AN AK AND HAS HAD 3 VESSEL CABG IN 2006 STATES THE PAIN AND SYMPTOMS SHE HAD TONIGHT WERE EXACTLY THE SAME WHEN SHE HAD HER HEART ATTACK PT'S LAST CARDIAC CATH HERE WAS 06/18/[address] RODARTE SEVERE MULTIVESSEL CAD, WITH OCCLUDED VEIN GRAFT TO OBTUSE MARGINAL AND SEVERELY ATRETIC GALLEGOS TO THE LAD. NO INTERVENTION DONE AT THAT TIME AND MAXIMIZING MEDICAL THERAPY RECOMMENDED. PT HAD STRESS TEST 07/19/[address] RODARTE EF 64%, BORDERLINE STRESS TEST WITH MILD DECREASED UPTAKE AT MID TO APICAL ANTERIOR WALL WITH MILD REVERSIBILITY. PT HAS COPD, WEARS O2 AT 2L/NC CONTINOUSLY PT IS DIABETIC, WITH HTN, HYPERLIPIDEMIA, GERD. PT SMOKED 2 PPD, QUIT 2008. ICU pt appears comfortable/ stable hemodynamically Allergies and Home Medications Allergies Coded Allergies: fentanyl (Unverified Allergy, Intermediate, SEVERE NAUSEA/VOMITTING, 06/07/11) morphine (Verified Allergy, Unknown, 07/19/18) tramadol (Verified Allergy, Unknown, 09/01/08) Home Medications Acetaminophen 500 Mg Tablet, 1,000 MG PO Q6H PRN for PAIN-MILD, (Reported) TAKES 2 (500 MG) TABLETS Amlodipine Besylate 2.5 Mg Tablet, 2.5 MG PO DAILY, (Reported) Aspirin 81 Mg Tablet.dr, 81 MG PO DAILY, (Reported) Atorvastatin Calcium 80 Mg Tablet, 80 MG PO HS, (Reported) Budesonide/Formoterol Fumarate 10.2 Gm Hfa.aer.ad, 2 PUFF INH BID, (Reported) Clopidogrel Bisulfate 75 Mg Tablet, 75 MG PO DAILY, (Reported) Dulaglutide 0.75 Mg/0.5 Ml Pen.injctr, 0.75 MG SQ WEEK, (Reported) Fenofibrate 160 Mg Tablet, 160 MG PO HS, (Reported) Isosorbide Mononitrate 60 Mg Tab, 60 MG PO DAILY, (Reported) Levothyroxine Sodium 112 Mcg Tablet, 112 MCG PO DAILY, (Reported) Meclizine HCl 12.5 Mg Tablet, 12.5-25 MG PO Q6H PRN for VERTIGO, (Reported) Nystatin 15 Gm Powder, 1 APPLIC TOP DAILY PRN for YEAST, (Reported) APPLIES UNDER BREAST AND GROIN AREA Pantoprazole Sodium 40 Mg Tablet.dr, 40 MG PO HS, (Reported) Ranolazine 1,000 Mg Tab.er.12h, 1,000 MG PO BID, (Reported) Sitagliptin Phos/Metformin HCl 1 Each Tablet, 1 EACH PO DAILY, (Reported) Tiotropium [place] 4 Gm Mist.inhal, 2 PUFF INH DAILY, (Reported) Valsartan 160 Mg Tablet, 160 MG PO DAILY, (Reported) Past Medical/Social/Family Hx Patient Social History Tobacco Use?: No Smoking Status: Never a Smoker Use of E-Cig and/or Vaping dev: No Substance use?: No Alcohol Use?: No Pt stated abuse/neglect: No Immunizations Up To Date Influenza Vaccine Up-to-Date: Yes; Up-to-Date Tetanus Booster (TDap): Unknown Date of Pneumonia Vaccine: Aug 03, 2017 Current Status status: No status: No Advance Directives: No Communicates: Verbally Primary Language: Georgian Preferred Spoken Language: Georgian Is interpretation needed?: No Sensory deficits: Vision impairment Implanted or Applied Medical D: None Past Medical History COPD with supplemental oxygen use 1-2 L baseline NIDDM HLD CAD s/p bypass x 3 Hypothyroidism HTN SurgHx: CABG Cataracts Cholecystectomy Review of Systems Constitutional: see HPI Focused Exam Height, Weight, BMI Height: 5'0" Weight: 161lbs. 11.2oz. [id number]; 29.40 BMI Method:Stated Exam Exam Patient acknowledged, consented, and participated in this virtual visit which was conducted using real time audio/video Vital Signs Date Time Temp Pulse Resp B/P (MAP) Pulse Ox O2 Delivery O2 Flow Rate FiO2 02/21/22 06:00 99 Nasal Cannula 2.00 02/21/22 06:00 60 16 119/51 (73) 99 Nasal Cannula 2.00 02/21/22 05:00 58 23 135/57 (83) 99 Nasal Cannula 2.00 02/21/22 04:45 58 16 127/69 (88) 100 Nasal Cannula 2.00 02/21/22 04:30 58 16 113/96 (102) 99 Nasal Cannula 2.00 02/21/22 04:15 56 16 102/79 (87) 99 Nasal Cannula 2.00 02/21/22 04:09 99 Nasal Cannula 2.00 02/21/22 04:00 56 18 118/68 (85) 94 Nasal Cannula 2.00 02/21/22 04:00 36.5 02/21/22 03:46 60 02/21/22 03:45 61 18 151/61 (91) 94 Nasal Cannula 2.00 02/21/22 03:25 56 17 150/62 100 Room Air 02/21/22 02:39 36.3 59 20 155/75 (101) 100 Room Air 02/21/22 01:08 100 Room Air I & O 02/21/22 07:00 Intake Total 0 ml Output Total 0 ml Balance 0 ml Height & Weight Height: 5'0" Weight: 161lbs. 11.2oz. 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
[2022-02-21] MEDS ORDERED: REGADENOSON 0.4 MG/5 ML SYR (LEXISCAN) IV ONE ×2 (08:45→11:43)
[2022-02-21] MEDS: ENOXAPARIN 40 MG/0.4 ML (LOVENOX) SYR SC SCH (08:46)
[2022-02-21] MEDS: ASPIRIN E.C. 81 MG (ECOTRIN) TAB PO SCH (08:46)
--- NOTE | 2022-02-21 09:50 | Consultation-Cardiology ---
HPI-Cardiology Cardiology Consultation Date of Consultation 02/21/22 Date of Admission Time Seen by Provider: 07:15 Indication: Chest pain HPI 76-year-old lady with a history of coronary artery disease, history of CABG, hypertension hyperlipidemia has chronic stable angina. She woke up with severe chest pain started in her back radiating to the chest, took 3 sublingual nitroglycerin with some relief, came into the emergency room for evaluation. On my evaluation she was feeling better, no active chest pain was reported. No palpitation. No syncope. Home Medications & Allergies Allergies: Coded Allergies: fentanyl (Unverified Allergy, Intermediate, SEVERE NAUSEA/VOMITTING, 06/07/11) morphine (Verified Allergy, Unknown, 07/19/18) tramadol (Verified Allergy, Unknown, 09/01/08) Home Medication List Reviewed: Yes PFL-Tzrbxk-Mqadhk Hx Patient Social History Marital Status: Employed/Student: retired Smoking Status: Never a Smoker Former smoker/When Quit: Jan 22, 2008 Type Used: Cigarettes 2nd Hand Smoke Exposure: No Recent Hopitalizations: Yes Have you traveled recently?: No Alcohol Use?: No Immunizations Up To Date Tetanus Booster (TDap): Unknown Date of Pneumonia Vaccine: Aug 03, 2017 Date of Influenza Vaccine: Aug 16, 2020 Past Medical History Discussed below Family Medical History Family History: Arthritis 19 FATHER Asthma 19 MOTHER Cardiovascular disease 19 MOTHER G8 BROTHER G8 SISTER G8 SISTER G8 SISTER Cataracts 19 FATHER Diabetes mellitus 19 MOTHER G8 BROTHER G8 SISTER G8 SISTER G8 SISTER Hypertension 19 MOTHER Myocardial infarction 19 MOTHER G8 SISTER G8 SISTER Parkinson's disease G8 BROTHER Prostate cancer 19 FATHER Respiratory disorder G8 BROTHER Thyroid disease 19 MOTHER Review of Systems-General Review of Systems Constitutional: see HPI EENTM: see HPI, no symptoms reported Respiratory: see HPI; No cough; dyspnea on exertion; No hemoptysis, No orthopnea, No phlegm; short of breath; No stridor, No wheezing, No other Cardiovascular: see HPI, chest pain; No edema, No Hx of Intervention, No palpitations, No syncope, No vascular heart diseas, No other Gastrointestinal: no symptoms reported, see HPI Genitourinary: no symptoms reported, see HPI Musculoskeletal: see HPI, back pain Skin: no symptoms reported Psychiatric/Neurological: No Symptoms Reported Reviewed Test Results Reviewed Test Results Lab Laboratory Tests Test 02/21/22 01:08 02/21/22 04:09 02/21/22 07:50 Range/Units White Blood Count 6.8 6.4 4.3-11.0 10^3/uL Red Blood Count 3.72 L 3.54 L 3.80-5.11 10^6/uL Hemoglobin 10.5 L 10.1 L 11.5-16.0 g/dL Hematocrit 33 L 31 L 35-52 % Mean Corpuscular Volume 89 88 80-99 fL Mean Corpuscular Hemoglobin 28 29 25-34 pg Mean Corpuscular Hemoglobin Concent 32 32 32-36 g/dL Red Cell Distribution Width 14.3 14.4 10.0-14.5 % Platelet Count 282 262 130-400 10^3/uL Mean Platelet Volume 10.0 9.9 9.0-12.2 fL Immature Granulocyte % (Auto) 0 1 % Neutrophils (%) (Auto) 58 56 42-75 % Lymphocytes (%) (Auto) 32 34 12-44 % Monocytes (%) (Auto) 9 8 0-12 % Eosinophils (%) (Auto) 1 1 0-10 % Basophils (%) (Auto) 0 1 0-10 % Neutrophils # (Auto) 3.9 3.6 1.8-7.8 10^3/uL Lymphocytes # (Auto) 2.2 2.2 1.0-4.0 10^3/uL Monocytes # (Auto) 0.6 0.5 0.0-1.0 10^3/uL Eosinophils # (Auto) 0.1 0.1 0.0-0.3 10^3/uL Basophils # (Auto) 0.0 0.0 0.0-0.1 10^3/uL Immature Granulocyte # (Auto) 0.0 0.0 0.0-0.1 10^3/uL Prothrombin Time 14.0 12.2-14.7 SEC INR Comment 1.0 0.8-1.4 Activated Partial Thromboplast Time 28 24-35 SEC Sodium Level 139 141 135-145 MMOL/L Potassium Level 3.6 3.4 L 3.6-5.0 MMOL/L Chloride Level 100 102 98-107 MMOL/L Carbon Dioxide Level 25 25 21-32 MMOL/L Anion Gap 14 14 5-14 MMOL/L Blood Urea Nitrogen 18 16 7-18 MG/DL Creatinine 0.71 0.66 0.60-1.30 MG/DL Estimat Glomerular Filtration Rate 88 90 BUN/Creatinine Ratio 25 24 Glucose Level 171 H 162 H 70-105 MG/DL Calcium Level 9.2 9.1 8.5-10.1 MG/DL Corrected Calcium 9.5 8.5-10.1 MG/DL Magnesium Level 1.2 L 1.6-2.4 MG/DL Total Bilirubin 0.2 0.1-1.0 MG/DL Aspartate Amino Transf (AST/SGOT) 12 5-34 U/L Alanine Aminotransferase (ALT/SGPT) 12 0-55 U/L Alkaline Phosphatase 57 40-136 U/L Total Creatine Kinase 27 L 29-168 U/L Creatine Kinase MB 0.3 <6.6 NG/ML Myoglobin 19.1 10.0-92.0 NG/ML Troponin I < 0.028 < 0.028 < 0.028 <0.028 NG/ML B-Type Natriuretic Peptide 143.1 H <100.0 PG/ML Total Protein 6.7 6.4-8.2 GM/DL Albumin 3.6 3.2-4.5 GM/DL Amylase Level 31 25-125 U/L Lipase 32 8-78 U/L Triglycerides Level 188 H <150 MG/DL Cholesterol Level 128 < 200 MG/DL LDL Cholesterol Direct 71 1-129 MG/DL VLDL Cholesterol 38 5-40 MG/DL HDL Cholesterol 36 L 40-60 MG/DL Physical Exam Physical Exam Vital Signs Vital Signs - First Documented 02/21/22 02/21/22 02/21/22 01:08 02:39 03:45 Temp 36.3 Pulse 59 Resp 20 B/P (MAP) 155/75 (101) Pulse Ox 100 O2 Delivery Room Air O2 Flow Rate 2.00 Capillary Refill : Less Than 3 Seconds Height, Weight, BMI Height: 5'0" Weight: 161lbs. 11.2oz. 73.539500yg; 29.40 BMI Method:Stated General Appearance: No Apparent Distress, WD/WN Eyes: Bilateral Eye Normal Inspection, Bilateral Eye PERRL, Bilateral Eye EOMI HEENT: PERRL/EOMI, TMs Normal, Normal ENT Inspection, Pharynx Normal, Moist Mucous Membranes Neck: Normal Inspection; No Carotid Bruit, No JVD Respiratory: Normal Breath Sounds, No Accessory Muscle Use Cardiovascular: Regular Rate, Rhythm, No Edema, No JVD, No Murmur, Normal Peripheral Pulses Gastrointestinal: Non Tender, Soft Back: Normal Inspection, No CVA Tenderness, No Vertebral Tenderness Extremity: Normal Inspection Neurologic/Psychiatric: Alert, Oriented x3, No Motor/Sensory Deficits, Normal Mood/Affect, v[employer] II-XII Norm as Tested Skin: Normal Color, Warm/Dry Lymphatic: No Adenopathy A/P-Cardiology Admission Diagnosis CP CAD HTN HLD Assessment/Plan Chest pain, resembling angina, has history of chronic stable angina maintained on Ranexa and isosorbide. No recent cardiac work-up, planning to evaluate stress test. Coronary artery disease, History of CABG x 3 in 2006, Cardiac catheterization done June 19, 2016 The LAD is occluded proximally, The GALLEGOS to the LAD is atretic and occluded. Vein graft to the diagonal artery is patent, filling retrograde the LAD. Ostium of the diagonal branch was moderate to severe stenosis not amenable to intervention. Left circumflex is moderate in size with 50 percent stenosis at the midportion. First obtuse marginal branch is occluded and the vein graft to the OM branch is occluded. Right coronary artery is the dominant artery, moderate in size with mild disease, nonobstructive disease. Patient had borderline stress test on July 19, 2020 revealing mild decreased uptake at mid to apical ant wall with mild reversibility, normal LV, EF 64%, SSS=2, SDS=2, TID=1.02. Abnormality likely related to the known occluded GALLEGOS. I am planning to proceed with a stress test Hypertension, controlled. History of orthostatic hypotension. continue to monitor Hyperlipidemia, monitor lipids COPD, Using oxygen as needed and at night, has been followed and managed by Dr. Garcia Dyspnea, chronic secondary to COPD. Mild bilateral nonobstructive carotid stenosis per carotid duplex on Jul 2020. I will evaluate carotid ultrasound Sick sinus syndrome with bradycardia, intolerance to beta blockers. Hypothyroidism, managed by primary care physician Clinical Quality Measures AMI/AHF: ASA po Prior to arrival: AZAR Harris MD Feb 21, 2022 09:50
[2022-02-21] MEDS ORDERED: CHOL-34 PO (10:13)
[2022-02-21] MEDS ORDERED: NITR0.4T39 SL (10:13)
[2022-02-21] MEDS ORDERED: RANO10005 PO (10:13)
[2022-02-21] MEDS ORDERED: METF-399 PO (10:13)
--- NOTE | 2022-02-21 13:06 | Short Stay Summary-Hospitalist ---
JORGE LEIGH MED STUDENT 02/21/22 1306: History of Present Illness HPI/Chief Complaint CC: Chest pain HPI: This is Miss Marques, a 76 yo F, with a past medical history including myocardial infarction, CABG, COPD, diabetes, hypertension, hyperlipidemia, GERD, who presented to the ED via EMS for chest pain. The chest pain started while she was sitting down at the computer. She was also having severe back pain. She took nitroglycerin x3, before EMS arrived and she was pain free upon presentation to the ED. EKG done in the ED was abnormal, showing an older anterior infarct. She normally sees Dr. Campbell, her last appointment being in November of 2021. She was nauseous, dizzy and diaphoretic. At this time she is feeling very weak and worn out, but does not have any chest pain. Source: patient, old records Date Seen 02/21/22 Time Seen by a Provider: 09:15 Attending Physician Yoli Mosqueda MD [facility] Referring Physician Date of Admission Feb 21, 2022 at 02:25 Home Medications & Allergies Home Medications Reviewed patient Home Medication Reconciliation performed by pharmacy medication reconciliations extracorporeal technician and/or nursing. Patients Allergies have been reviewed. Allergies Allergies Coded Allergies fentanyl (Unverified Allergy, Intermediate, SEVERE NAUSEA/VOMITTING, 06/07/11) morphine (Verified Allergy, Unknown, 07/19/18) tramadol (Verified Allergy, Unknown, 09/01/08) Past Medical/Social/Family Hx Patient Social History Marrital Status: Employed/Student: retired Tobacco Use?: No Smoking Status: Never a Smoker Use of E-Cig and/or Vaping dev: No Substance use?: No Alcohol Use?: No Pt stated abuse/neglect: No Immunizations Up To Date Influenza Vaccine Up-to-Date: Yes; Up-to-Date Tetanus Booster (TDap): Unknown Date of Pneumonia Vaccine: Aug 03, 2017 Current Status status: No status: No Advance Directives: No Communicates: Verbally Primary Language: Pakistani Preferred Spoken Language: Pakistani Is interpretation needed?: No Sensory deficits: Vision impairment Implanted or Applied Medical D: None Past Medical History COPD with supplemental oxygen use 1-2 L baseline NIDDM HLD CAD s/p bypass x 3 Hypothyroidism HTN SurgHx: CABG Cataracts Cholecystectomy Family Medical History Family Hx: Diabetes, various cardiac conditions, cancer Review of Systems Constitutional: No diaphoresis, No dizziness, No fever EENTM: No blurred vision, No double vision Respiratory: No cough, No short of breath Cardiovascular: No chest pain, No edema; Hx of Intervention; No palpitations Gastrointestinal: No abdominal pain, No constipation, No diarrhea, No nausea, No vomiting Genitourinary: no symptoms reported Musculoskeletal: No back pain Skin: no symptoms reported Psychiatric/Neurological: Denies Headache Physical Exam Physical Exam Vital Signs Vital Signs - First Documented 02/21/22 02/21/22 02/21/22 01:08 02:39 03:45 Temp 36.3 Pulse 59 Resp 20 B/P (MAP) 155/75 (101) Pulse Ox 100 O2 Delivery Room Air O2 Flow Rate 2.00 Capillary Refill : Less Than 3 Seconds Height, Weight, BMI Height: 5'0" Weight: 161lbs. 11.2oz. 73.945613cn; 29.40 BMI Method:Stated General Appearance: No Apparent Distress, WD/WN HEENT: Moist Mucous Membranes; No Scleral Icterus (L), No Scleral Icterus (R) Neck: Normal Inspection, Non Tender; No Lymphadenopathy (L), No Lymphadenopathy (R) Respiratory: Chest Non Tender, Lungs Clear, Normal Breath Sounds, No Accessory Muscle Use Cardiovascular: Regular Rate, Rhythm, No Edema, No Murmur, Normal Peripheral Pulses, Bradycardia Gastrointestinal: Normal Bowel Sounds, Non Tender, Soft Extremity: Normal Capillary Refill, No Pedal Edema Neurologic/Psychiatric: Alert, Oriented x3, Normal Mood/Affect Skin: Normal Color, Warm/Dry Lymphatic: No Adenopathy Results Results/Procedures Labs Laboratory Tests 02/21/22 01:08 02/21/22 04:09 Patient resulted labs reviewed. Imaging: Reviewed Imaging Report Imaging NAME: VINAY KAY [facility] REC#: [id number] PT STATUS: ADM IN : 1945 PHYSICIAN: TRISHA DUNN DO ADMIT DATE: 02/21/22/ICU Signed Date of Exam:02/21/22 CHEST 1 VIEW, AP/PA ONLY INDICATION: Coronary artery disease. COMPARISON: 05/16/2021. FINDINGS: Single view of the chest demonstrates chronic interstitial infiltrates. The heart remains slightly enlarged. There is no pneumothorax. Sternal wires midline. Osseous structures are age-appropriate. IMPRESSION: Cardiac enlargement with chronic appearing infiltrates. Dictated by: Dictated on workstation # [id number] Dict: 02/21/22 0610 Trans: 02/21/22 1116 [id number] Interpreted by: HECTOR HORNER Electronically signed by: HECTOR HORNER 02/21/22 1116 Short Stay Diagnosis Discharge Diagnosis-Short Stay Admission Diagnosis Chest pain Final Discharge Diagnosis Chest pain Conclusion Plan Assessment - Chest pain - Abnormal EKG results - History of multiple myocardial infarctions - anemia - hypomagnesemia - hypokalemia Plan - Appreciate cardiology - Stress test today - supportive care Clinical Quality Measures AMI/AHF: ASA po Prior to arrival: Soha RIOSNERRENAE DO 02/22/22 0540: History of Present Illness HPI/Chief Complaint Chief complaint: History of present illness: This is a 76-year-old white female with history of stents who presented with chest pain and dizziness. Cardiology has been consulted and stress test will be performed. Currently she is about ready to go down to stress testing so other details are limited. Source: patient Past Medical/Social/Family Hx Patient Social History Marrital Status: Employed/Student: retired Review of Systems Constitutional: see HPI, malaise, weakness Cardiovascular: chest pain Physical Exam Physical Exam General Appearance: No Apparent Distress, WD/WN, Chronically ill Eyes: Bilateral Eye Normal Inspection, Bilateral Eye PERRL HEENT: PERRL/EOMI, Normal ENT Inspection, Pharynx Normal Neck: Full Range of Motion, Normal Inspection, Non Tender, Supple, Carotid Bruit Respiratory: Chest Non Tender, Lungs Clear, Normal Breath Sounds, No Accessory Muscle Use, No Respiratory Distress Cardiovascular: Regular Rate, Rhythm, No Edema, No Gallop, No JVD, No Murmur, Normal Peripheral Pulses Gastrointestinal: Normal Bowel Sounds, No Organomegaly, No Pulsatile Mass, Non Tender, Soft Back: Normal Inspection, No CVA Tenderness, No Vertebral Tenderness Extremity: Normal Capillary Refill, Normal Inspection, Normal Range of Motion, Non Tender, No Calf Tenderness, No Pedal Edema Neurologic/Psychiatric: Alert, Oriented x3, No Motor/Sensory Deficits, Normal Mood/Affect Skin: Normal Color, Warm/Dry Lymphatic: No Adenopathy Short Stay Diagnosis Discharge Diagnosis-Short Stay Admission Diagnosis Chest pain Final Discharge Diagnosis Chest pain CAD Chronic vertigo Conclusion Plan Supportive care Stress test Supervisory-Addendum Brief Verification & Attestation Participated in pt care: history, MDM, physical Personally performed: exam, history, MDM, supervision of care Care discussed with: Medical Student Procedures: n/a Results interpretation: Verified all documentation Verification and Attestation of Medical Student E/M Service A medical student performed and documented this service in my presence. I reviewed and verified all information documented by the medical student and made modifications to such information, when appropriate. I personally performed the physical exam and medical decision making. Renae Mary, Feb 22, 2022,05:39 JORGE LEIGH MED STUDENT Feb 21, 2022 13:06 RENAE MARY DO Feb 22, 2022 05:40
--- NOTE | 2022-02-21 13:48 | Cardiology Stress Test Report ---
Stress Test Report Date of Procedure/Referring: Date of Procedure: Feb 21, 2022 PCP Yoli Mosqueda MD Admitting Physician [facility] Indications: CP Baseline Blood Pressure: Blood Pressure Systolic: 136 Blood Pressure Diastolic: 72 Baseline Vitals Vital Signs Date Time Temp Pulse Resp B/P (MAP) Pulse Ox O2 Delivery O2 Flow Rate FiO2 02/21/22 01:08 100 Room Air 02/21/22 02:39 36.3 59 20 155/75 (101) 02/21/22 03:45 2.00 Baseline EKG: Baseline EKG: NSR Summary After explaining the procedure to the patient, she signed a consent and then brought to the stress nuclear laboratory. Patient received 0.4 mg Lexiscan for stress test, ECG, heart rate and blood pressure were monitored continuously. Resting and stress dose of radio tracer were injected, imaging was acquired and reviewed in short axis, horizontal long axis and vertical long axis views. TID: 1.05 SSS: 8 SDS: 8 EF: 72 1. Patient tolerated Lexiscan well 2. Reversible ischemia involving the mid to apical anterior wall and anterolateral wall 3. Normal left ventricular size, ejection fraction 72% AZAR RODARTE MD Feb 21, 2022 13:48
[2022-02-21] MEDS: MECLIZINE 25 MG (ANTIVERT) TAB PO PRN ×2 (15:06→21:23)
[2022-02-22] VITALS (9 sets, daily range): BP systolic 120–153; BP diastolic 52–92
[2022-02-22] MEDS: inSUlin ASPART (NovoLOG) 1 UNIT/0.01 ML (CHARGE PER UNIT) SC SCH ×2 (06:25→12:46)
[2022-02-22] MEDS: CATHETER FLUSH 10 ML SYR IVP SCH (06:25)
[2022-02-22] MEDS: ENOXAPARIN 40 MG/0.4 ML (LOVENOX) SYR SC SCH (07:30)
[2022-02-22] MEDS ORDERED: MIDAZOLAM 5 MG/5 ML (VERSED) VIAL ONE (07:50)
[2022-02-22] MEDS ORDERED: HEParin 1000 UNIT/ML (10ML VIAL) FOR BOLUS ONE (07:50)
[2022-02-22] MEDS ORDERED: LIDOCAINE 1% INJ 20 ML VIAL ONE (07:50)
[2022-02-22] MEDS ORDERED: VERAPAMIL 5 MG/2 ML (CALAN) VIAL IV ONE (07:50)
[2022-02-22] MEDS ORDERED: NS IV 1000 ML 1,000 ML ONE (07:51)
[2022-02-22] MEDS ORDERED: HEParin (CATH LAB) 1,000 ML IV ONE ×2 (07:51→07:52)
[2022-02-22] MEDS: ASPIRIN E.C. 81 MG (ECOTRIN) TAB PO SCH (08:00)
[2022-02-22] MEDS ORDERED: NITRO DRIP 25000 MCG/D5W 0 ML IV ONE (08:00)
--- NOTE | 2022-02-22 08:01 | Tele-ICU Progress Note ---
Subjective Date Seen by a Provider: Feb 22, 2022 Subjective/Events-last exam Here for NSTEMI, trop ok, remains on ASA, Lovnenox Went to CCL showed clean coronaries, to go home today Severe chest pain is gone, did not use NTG Sepsis Event Evaluation Height, Weight, BMI Height: 5'0" Weight: 161lbs. 11.2oz. 73.087943vh; 29.40 BMI Method:Stated Exam Exam Patient acknowledged, consented, and participated in this virtual visit which was conducted using real time audio/video Vital Signs Date Time Temp Pulse Resp B/P (MAP) Pulse Ox O2 Delivery O2 Flow Rate FiO2 02/22/22 07:00 52 02/22/22 04:00 36.4 02/22/22 01:00 56 02/22/22 00:00 58 23 139/71 (93) 99 Nasal Cannula 2.00 02/22/22 00:00 36.3 02/21/22 21:00 99 Nasal Cannula 2.00 02/21/22 20:00 58 23 160/71 (100) 98 Nasal Cannula 2.00 02/21/22 19:00 64 29 96 Nasal Cannula 2.00 02/21/22 19:00 63 02/21/22 13:00 51 02/21/22 13:00 15 149/92 (111) 99 Nasal Cannula 2.00 02/21/22 11:49 669 136/72 (93) 99 Nasal Cannula 2.00 02/21/22 09:00 99 Nasal Cannula 2.00 I & O 02/22/22 07:00 Intake Total 250 ml Balance 250 ml Height & Weight Height: 5'0" Weight: 161lbs. 11.2oz. 73.480793dh; 29.40 BMI Method:Stated General Appearance: No Apparent Distress, WD/WN, Chronically ill HEENT: PERRL/EOMI, Normal ENT Inspection, Pharynx Normal Neck: Full Range of Motion, Normal Inspection, Non Tender, Supple, Carotid Bruit Respiratory: Chest Non Tender, Lungs Clear, Normal Breath Sounds, No Accessory Muscle Use, No Respiratory Distress Cardiovascular: Regular Rate, Rhythm, No Edema, No Gallop, No JVD, No Murmur, Normal Peripheral Pulses, Bradycardia (HR in 50's, on beta ramon) Capillary Refill: Less Than 3 Seconds Gastrointestinal: normal bowel sounds, non tender, soft Extremity: Normal Capillary Refill, Normal Inspection, Normal Range of Motion, Non Tender, No Calf Tenderness, No Pedal Edema Neurologic/Psychiatric: Alert, Oriented x3, No Motor/Sensory Deficits, Normal Mood/Affect Skin: Normal Color, Warm/Dry Lymphatic: No Adenopathy Results Lab Laboratory Tests 02/21/22 01:08 02/21/22 04:09 Assessment/Plan Assessment/Plan NSTEMI? no CAD, will go home today Critical Care: Critically Ill Patient Time spent with patient (mins): 25 CHRISTIANO RAMIREZ MD Feb 22, 2022 08:01
--- NOTE | 2022-02-22 08:16 | Conscious Sedation/ASA ---
Conscious Sedation Pre-Proced Time 08:16 ASA Score 3 For ASA 3 and 4: Consider anesthesia and medical clearance. Also, for patients with a history of failed moderate sedation consider anesthesia. Airway Lungs Heart ASA score ASA 1: a normal healthy patient ASA 2: a patient with a mild systemic disease (mid diabetes, controlled hypertension, obesity x ASA 3: a patient with a severe systemic disease that limits activity (angina, COPD, prior Myocardial infarction) ASA 4: a patient with an incapacitating disease that is a constant threat to life (CHF, renal failure) ASA 5: a moribund patient not expected to survive 24 hrs. (ruptured aneurysm) ASA 6: a declared brain- patient whose organs are being harvested. For emergent operations, add the letter E after the classification Mallampati Classification Grade 3 Sedation Plan Analgesia, Amnesia, Plan communicated to team members, Discussed options with patient/fam, Discussed risks with patient/fam The patient is an appropriate candidate to undergo the planned procedure, sedation, and anesthesia. The patient immediately re-assessed prior to indication. AZAR RODARTE MD Feb 22, 2022 08:16
[2022-02-22] MEDS ORDERED: METF-399 PO (08:44)
[2022-02-22] MEDS ORDERED: NS IV 1000 ML 1,000 ML IV SCH (08:45)
[2022-02-22] MEDS ORDERED: PATIENT MAY USE OWN MEDS, ALL PO SCH (08:45)
--- NOTE | 2022-02-22 08:45 | Discharge Inst-Post CATH ---
Discharge Inst-CATH/EP Problems Reviewed?: Yes Post Cardiac Cath/EP D/C Inst Follow Up/Plan Hold metformin for [address] Campbell's office in 2 to 4 weeks <b>CARDIAC CATH/EP PROCEDURE DISCHARGE INSTRUCTIONS</b> ACTIVITY * Go Home directly and rest. * Limit activity of the leg (or wrist if it was used) for 7 days including aerobics, swimming, jogging, bicycling, etc. * Restrict stair-climbing for 7 days if possible, if not, climb up with your non-cath leg, then bring together on the same step. * Avoid lifting, pushing, pulling or excessive movement of the affected extremity for 7 days. * Customary sexual activity may be resumed after 2 days-use caution not to use a position that strains or causes pain to the affected extremity. * No driving for 24 hours. * NO SMOKING. * Avoid straining for bowel movements for 7 days. * Gentle walking on level ground is allowed. * Returning to work will depend on the type of procedure and the results. Your doctor will discuss this with you. CALL YOUR DOCTOR FOR ANY OF THE FOLLOWING: *If bleeding from the puncture site occurs- Apply gentle pressure to site with clean cloth and call your doctor or EMS. * If a knot or lump forms under the skin, increases in size, or causes pain. * If bruising appears to be worsening or moving further down your leg instead of disappearing. * Temperature above 101 F. CARE OF YOUR GROIN INCISION; * Bruising or purple discoloration of the skin near the puncture site is common. * You may shower only, no bathtub bathing for 5 days. Be careful to avoid slipping as your leg may feel stiff. * If a closure device was used on your femoral artery, please see the attached guide regarding care of the device and your leg. * Leave dressing on FOR 24 hours. CARE OF YOUR WRIST INCISION; * Bruising or purple discoloration of the skin near the puncture site is common. * You may shower. * DO NOT submerge wrist. * Leave dressing on FOR 24 hours. AZAR CAMPBELL MD Feb 22, 2022 08:45
--- NOTE | 2022-02-22 08:49 | Cardiac Cath Report ---
Cardiac Cath Report Physician (s)/Leasing Agent (s) Physician AZAR RODATRE MD Pre-Procedure Diagnosis Pre-Procedure Diagnosis: Coronary artery disease Post-Procedure Note Procedure Start Date: Feb 22, 2022 Name of Procedure: Left heart catheterization Vein graft angiogram GALLEGOS angiogram Findings/Procedure Note PROCEDURE NOTE: 76-year-old lady with history of coronary artery disease, CABG, had an abnormal stress test with anterior wall ischemia scheduled for cardiac catheterization possible angioplasty and stent. After explaining the procedure to the patient, all pros and cons were explained, all questions were answered. The patient signed the consent and then she was placed on the cardiac catheterization laboratory. Groin was prepped SL fashion local anesthesia was used. Sheath placed in the left femoral artery. Estephania right and left catheter were used to access the coronary system.Vein Graft evaluated. GALLEGOS evaluated. Estephania right was prolapsed to the left ventricular cavity, pressure was measured no left ventriculogram was done. At the end of the procedure the sheath was removed. Closure device was deployed FINDINGS: Hemodynamics LV 153/11, end-diastolic pressure of 11 Aorta 164/62 mean of 87 ANATOMY: Left Main is patent to the circumflex artery, the LAD is occluded Left Anterior Descending is occluded at the ostium, vein graft to the diagonal artery is filling the LAD retrograde. The GALLEGOS to the LAD is atretic and occluded Left Circumflex is moderate in size with mild disease, the vein graft to the obtuse marginal branch is occluded Right Coronary Artery is dominant artery with mild disease nonobstructive diseas e GALLEGOS evaluation showed atretic GALLEGOS and occluded. Vein Graft evaluation showed markers for 2 vein grafts The upper vein graft is chronically occluded The lower vein graft is patent to the diagonal artery filling the LAD retrograde LV Gram was not done, pressure was measured CONCLUSION: 1. Occluded LAD and GALLEGOS to LAD, patent vein graft to the diagonal artery filling the LAD with small vessel disease distally 2. Occluded vein graft to the obtuse marginal branch, occluded obtuse marginal branch, with mild disease in the circumflex artery nonobstructive disease 3. Mild disease in the dominant right coronary artery nonobstructive disease 4. Normal left ventricular end-diastolic pressure DISCUSSION AND RECOMMENDATION: Coronary anatomy has not changed significantly compared to the study of 2016. Still having small vessel disease in the LAD probably the reason for her abnormal stress test. Medical therapy is recommended no intervention is holger corona Anesthesia Type: Conscious Sedation Estimated blood loss (mL): 20 ml Contrast Amount: 37 ml Total Radiation Dose: 148 mGy Post-Procedure Diagnosis Post-operative diagnosis: Chest pain Coronary artery disease Hypertension Hyperlipidemia AZAR RODARTE MD Feb 22, 2022 08:49
--- NOTE | 2022-02-22 08:55 | Cardiology Progress Note ---
Subjective Date Seen by Provider: Feb 22, 2022 Time Seen by Provider: 08:53 Subjective/Events-last exam Patient was seen at bedside laying down comfortably no active chest pain was reported Review of Systems General: No Chills, No Night Sweats, No Fatigue, No Malaise, No Appetite, No Other HEENT: No Head Aches, No Visual Changes, No Eye Pain, No Ear Pain, No Dysphasia, No Sinus Congestion, No Post Nasal Drip, No Sore Throat, No Other Pulmonary: No Dyspnea, No Cough, No Pleuritic Chest Pain, No Other Cardiovascular: No: Chest Pain, Palpitations, Orthopnea, Paroxysmal Noc. Dyspnea, Edema, Lt Headedness, Other Objective-Cardiology Exam Last Set of Vital Signs Vital Signs 02/22/22 02/22/22 07:00 08:00 Temp 36.3 Pulse 52 I&O Intake and Output 02/22/22 00:00 Intake Total 150 ml Output Total 0 ml Balance 150 ml Intake Oral 150 ml Output Urine Total 0 ml # Voids 5 Daily Weight Change No General: Alert, Oriented X3, Cooperative HEENT: Atraumatic, PERRLA Neck: Supple, No JVD, No Thyromegaly Lungs: Clear to Auscultation, Normal Air Movement Heart: Regular Rate, Normal S1, Normal S2, No Murmurs Abdomen: Normal Bowel Sounds, Soft, No Tenderness, No Hepatosplenomegaly, No Masses Extremities: No Clubbing, No Cyanosis, No Edema, Normal Pulses, No Tenderness/Swelling Skin: No Rashes, No Breakdown, No Significant Lesion Neuro: Normal Gait, Normal Speech, Strength at 5/5 X4 Ext, Normal Tone, Sensation Intact Psych/Mental Status: Mental Status NL, Mood NL Results Lab Laboratory Tests Test 02/21/22 16:54 02/21/22 21:22 02/22/22 06:23 Range/Units Glucometer 199 H 114 H 114 H 70-110 MG/DL A/P-Cardiology Admission Diagnosis CP CAD HTN HLD Assessment/Plan Chest pain, resembling angina, has history of chronic stable angina maintained on Ranexa and isosorbide. Stress test was abnormal underwent cardiac catheterization today. Coronary artery disease, History of CABG x 3 in 2006, Cardiac catheterization done June 19, 2016 The LAD is occluded proximally, The GALLEGOS to the LAD is atretic and occluded. Vein graft to the diagonal artery is patent, filling retrograde the LAD. Ostium of the diagonal branch was moderate to severe stenosis not amenable to intervention. Left circumflex is moderate in size with 50 percent stenosis at the midportion. First obtuse marginal branch is occluded and the vein graft to the OM branch is occluded. Right coronary artery is the dominant artery, moderate in size with mild disease, nonobstructive disease. Cardiac catheterization was done on February 22, 2022 after having an abnormal stress test with anterior wall ischemia, showed occluded and atretic GALLEGOS to LAD with occluded ostial LAD, the vein graft to the diagonal artery is filling retrograde the LAD with small vessel disease distally, occluded obtuse marginal branch and a vein graft to the obtuse marginal branch, mild disease in the proper circumflex artery and mild disease in the dominant right coronary artery. Normal left ventricular end-diastolic pressure. Coronary anatomy has not changed compared to the study of 2016, conservative man agement is recommended, continue on isosorbide and Ranexa and Plavix. Hypertension, controlled. History of orthostatic hypotension. continue to monitor Hyperlipidemia, monitor lipids COPD, Using oxygen as needed and at night, has been followed and managed by Dr. Garcia Dyspnea, chronic secondary to COPD. Mild bilateral nonobstructive carotid stenosis per carotid duplex on Jul 2020. I will evaluate carotid ultrasound Sick sinus syndrome with bradycardia, intolerance to beta blockers. Hypothyroidism, managed by primary care physician Anatoliy for discharge and follow-up as an outpatient, discussed the findings with AZAR Montesinos MD Feb 22, 2022 08:55
--- NOTE | 2022-02-22 10:51 | Discharge Summary ---
Discharge Summary Hospital Course Was the Problem List Reviewed?: Yes Problems/Dx: (1) Chest pain Status: Acute (2) CAD (coronary artery disease), [place] coronary artery Status: Chronic Hospital Course Date of Admission: Feb 21, 2022 at 02:25 Admission Diagnosis : [facility] Date of [facility]charge: 02/22/22 Discharge Diagnosis: Chest pain with abnormal stress test but no significant cardiac cath findings Hospital Course: Hospital Course: Miss Marques is a 76yo F, who presented to the ED via EMS for chest pain after nitroglycerin x3. The EKG done in the ED resulted abnormal due to an older anterior infarct. She was admitted to the ICU for further care. She completed a stress test which also resulted abnormal, showing reversible ischemia involving the mid to apical anterior wall and anterolateral wall. Because of these results, she was scheduled for cardiac catheterization. During the catheterization, the LAD and GALLEGOS to LAD were occluded, along with the obtuse marginal branch. Dr. Campbell recommended that this be treated with medical management only, and no stents were placed. Currently, Shelli is feeling tired, but is feeling better. She is safe and stable to be discharged home today, with upcoming follow up with Dr. Campbell. All questions and concerns were addressed with the patient. JORGE LEIGH MED STUDENT Labs and Pending Lab Test: Laboratory Tests 02/21/22 16:54: Glucometer 199H 02/21/22 21:22: Glucometer 114H 02/22/22 06:23: Glucometer 114H Home Meds Active Metformin HCl 1,000 Mg Tablet 1,000 Mg PO DAILY Hold metformin for 48 hours Reported Vitamin D3 (Cholecalciferol (Vitamin D3)) 25 Mcg (1000 Unit) Tablet 25 Mcg PO DAILY Nitroglycerin 0.4 Mg Tab.subl 0.4 Mg SL UD PRN Ranolazine ER (Ranolazine) 1,000 Mg Tab.er.12h 1,000 Mg PO BID Trulicity (Dulaglutide) 0.75 Mg/0.5 Ml Pen.injctr 0.75 Mg SQ SAT Valsartan 160 Mg Tablet 160 Mg PO DAILY Atorvastatin Calcium 80 Mg Tablet 80 Mg PO HS Amlodipine Besylate 2.5 Mg Tablet 2.5 Mg PO DAILY Meclizine HCl 12.5 Mg Tablet 12.5-25 Mg PO Q6H PRN Levothyroxine Sodium 112 Mcg Tablet 112 Mcg PO DAILY Fenofibrate 160 Mg Tablet 160 Mg PO HS Aspirin EC (Aspirin) 81 Mg Tablet.dr 81 Mg PO DAILY Acetaminophen 500 Mg Tablet 1,000 Mg PO Q6H PRN TAKES 2 (500 MG) TABLETS Pantoprazole Sodium 40 Mg Tablet.dr 40 Mg PO HS Isosorbide Mononitrate ER (Isosorbide Mononitrate) 60 Mg Tab 60 Mg PO DAILY Clopidogrel (Clopidogrel Bisulfate) 75 Mg Tablet 75 Mg PO DAILY Assessment/Pt Instructions PCP in 1 week Discharge Planning: <30 minutes discharge planning Discharge Instructions Discharge Diet: Cardiac Diet Activity as Tolerated: Yes Discharge Physical Examination Vital Signs Vital Signs Date Time Temp Pulse Resp B/P (MAP) Pulse Ox O2 Delivery O2 Flow Rate FiO2 02/22/22 10:00 56 30 153/63 (93) 94 Nasal Cannula 2.00 02/22/22 08:00 36.3 General Appearance: No Apparent Distress, WD/WN, Chronically ill Respiratory: Lungs Clear, Normal Breath Sounds Allergies: Coded Allergies: fentanyl (Unverified Allergy, Intermediate, SEVERE NAUSEA/VOMITTING, 06/07/11) morphine (Verified Allergy, Unknown, 07/19/18) tramadol (Verified Allergy, Unknown, 09/01/08) Discharge Summary Date of Admission Feb 21, 2022 at 02:25 Date of Discharge Discharge Date: Feb 22, 2022 Discharge Time: 1300 Admission Diagnosis Chest pain Discharge Diagnosis Supportive care Stress test Clinical Quality Measures AMI/AHF: ASA po Prior to arrival: CHAPIS Crum DO Feb 22, 2022 10:51
[2022-02-22] MEDS ORDERED: MECL-149 PO (10:58)
--- NOTE | 2022-02-22 12:41 | Progress Note ---
JORGE LEIGH MED STUDENT 02/22/22 1241: Progress Note Hospital Course: Miss Marques is a 76yo F, who presented to the ED via EMS for chest pain after nitroglycerin x3. The EKG done in the ED resulted abnormal due to an older anterior infarct. She was admitted to the ICU for further care. She completed a stress test which also resulted abnormal, showing reversible ischemia involving the mid to apical anterior wall and anterolateral wall. Because of these results, she was scheduled for cardiac catheterization. During the catheterization, the LAD and GALLEGOS to LAD were occluded, along with the obtuse marginal branch. Dr. Campbell recommended that this be treated with medical management only, and no stents were placed. Currently, Shelli is feeling tired, but is feeling better. She is safe and stable to be discharged home today, with upcoming follow up with Dr. Campbell. All questions and concerns were addressed with the patient. RENAE MARY DO 02/22/222042: Supervisory-Addendum Brief Verification & Attestation Participated in pt care: history, MDM, physical Personally performed: exam, history, MDM, supervision of care Care discussed with: Medical Student Procedures: n/a Results interpretation: Verified all documentation Verification and Attestation of Medical Student E/M Service A medical student performed and documented this service in my presence. I reviewed and verified all information documented by the medical student and made modifications to such information, when appropriate. I personally performed the physical exam and medical decision making. Renae Mary Feb 22, 2022,20:43 JORGE LEIGH MED STUDENT Feb 22, 2022 12:41 RENAE MARY DO Feb 22, 2022 20:43
== END 2022-02-22 14:15 | disposition home or self-care (01) | DRG 287 ==
LOC: EDUNIT# 01:02 → ER 01:06 → ICU 02:25 → EDLOC 02:25
PROVIDERS: ADMIT Internal Medicine; ATTEND Pediatrics
PROC: 4A023N7 Measurement of Cardiac Sampling and Pressure, Left Heart, Percutaneous Approach (ICD-10-PCS; principal; 2022-02-22)
PROC: B2111ZZ Fluoroscopy of Multiple Coronary Arteries using Low Osmolar Contrast (ICD-10-PCS; 2022-02-22)
PROC: B2121ZZ Fluoroscopy of Single Coronary Artery Bypass Graft using Low Osmolar Contrast (ICD-10-PCS; 2022-02-22)
PROC: B2181ZZ Fluoroscopy of Left Internal Mammary Bypass Graft using Low Osmolar Contrast (ICD-10-PCS; 2022-02-22)
DX: R07.9 Chest pain, unspecified (principal); I25.10 Atherosclerotic heart disease of native coronary artery without angina pectoris; I25.2 Old myocardial infarction; Z95.1 Presence of aortocoronary bypass graft; J44.9 Chronic obstructive pulmonary disease, unspecified; E11.9 Type 2 diabetes mellitus without complications; I10 Essential (primary) hypertension; E78.5 Hyperlipidemia, unspecified; K21.9 Gastro-esophageal reflux disease without esophagitis; Z99.81 Dependence on supplemental oxygen; E03.9 Hypothyroidism, unspecified; R42 Dizziness and giddiness; E78.00 Pure hypercholesterolemia, unspecified; Z86.73 Personal history of transient ischemic attack (TIA), and cerebral infarction without residual deficits; M19.90 Unspecified osteoarthritis, unspecified site; G89.29 Other chronic pain; M54.9 Dorsalgia, unspecified; I65.23 Occlusion and stenosis of bilateral carotid arteries; I49.5 Sick sinus syndrome; E83.42 Hypomagnesemia; E87.6 Hypokalemia
CPT/HCPCS: 36415; 71045; 78452; 80048; 80053; 80061; 82150; 82550; 82553; 82947; 83690; 83735; 83874; 83880; 84484; 85025; 85610; 85730; 93005; 93017; 93041; 93459

== ENCOUNTER 2022-07-08 17:45 | Emergency (ER) | payer MEDICARE, MEDICAID ==
[~2022-07-08 17:45] MED LIST changes: +CHOL-34 PO; +DULA0.75 SQ; +MECL-149 PO; +METF-399 PO; +NITR0.4T39 SL; +RANO10005 PO
--- NOTE | 2022-07-08 19:38 | ED Integumentary General ---
General Chief Complaint: Skin/Wound Problems Stated Complaint: BODY RASH Nursing Triage Note: PT AMB TO FT 2 WITH C/O RASH UNDER R BREAST AND R GROIN AREA. PT GIVEN PILLS BY PCP LAST WEEK FOR THE RASH BUT IT HAS NOT HELPED. PT ALSO USING NYSTATIN CREAM AND POWDER WITHOUT RELIEF Source: patient Exam Limitations: no limitations History of Present Illness Date Seen by Provider: Jul 08, 2022 Time Seen by Provider: 19:36 Allergies and Home Medications Allergies Coded Allergies: fentanyl (Unverified Allergy, Intermediate, SEVERE NAUSEA/VOMITTING, 06/07/11) morphine (Verified Allergy, Unknown, 07/19/18) tramadol (Verified Allergy, Unknown, 09/01/08) Patient Home Medication List Acetaminophen (Acetaminophen) 500 Mg Tablet, 1,000 MG PO Q6H PRN for PAIN-MILD, (Reported) Entered as Reported by: DANIEL VENTURA on 12/21/17 1321 Amlodipine Besylate (Amlodipine Besylate) 2.5 Mg Tablet, 2.5 MG PO DAILY, (Reported) Entered as Reported by: ILA COLEMAN on 10/17/20 1134 Aspirin (Aspirin EC) 81 Mg Tablet.dr, 81 MG PO DAILY, (Reported) Entered as Reported by: JULIETA TOBIAS on 07/20/18 0848 Atorvastatin Calcium (Atorvastatin Calcium) 80 Mg Tablet, 80 MG PO HS, (Reported) Entered as Reported by: ILA COLEMAN on 10/17/20 1134 Cholecalciferol (Vitamin D3) (Vitamin D3) 25 Mcg (1000 Unit) Tablet, 25 MCG PO DAILY, (Reported) Entered as Reported by: ILA COLEMAN on 02/21/22 1013 Clopidogrel Bisulfate (Clopidogrel) 75 Mg Tablet, 75 MG PO DAILY, (Reported) Entered as Reported by: JULIETA TOBIAS on 05/20/16 0908 Dulaglutide (Trulicity) 0.75 Mg/0.5 Ml Pen.injctr, 0.75 MG SQ SAT, (Reported) Entered as Reported by: YOSEF KING on 02/21/22 0642 Fenofibrate (Fenofibrate) 160 Mg Tablet, 160 MG PO HS, (Reported) Entered as Reported by: JULIETA TOBIAS on 07/20/18 0848 Isosorbide Mononitrate (Isosorbide Mononitrate ER) 60 Mg Tab, 60 MG PO DAILY, (Reported) Entered as Reported by: JULIETA TOBIAS on 05/20/16 0908 Levothyroxine Sodium (Levothyroxine Sodium) 112 Mcg Tablet, 112 MCG PO DAILY, (Reported) Entered as Reported by: ILA COLEMAN on 01/04/20 1031 Meclizine HCl (Meclizine HCl) 25 Mg Tablet, 25 MG PO TID PRN for DIZZINESS Prescribed by: CHAPIS MARY on 02/22/22 1058 Metformin HCl (Metformin HCl) 1,000 Mg Tablet, 1,000 MG PO DAILY Prescribed by: AZAR RODARTE on 02/22/22 0844 Nitroglycerin (Nitroglycerin) 0.4 Mg Tab.subl, 0.4 MG SL UD PRN for CHEST PAIN, (Reported) Entered as Reported by: ILA COLEMAN on 02/21/22 1013 Pantoprazole Sodium (Pantoprazole Sodium) 40 Mg Tablet.dr, 40 MG PO HS, (Reported) Entered as Reported by: DANIEL VENTURA on 12/21/17 1136 Ranolazine (Ranolazine ER) 1,000 Mg Tab.er.12h, 1,000 MG PO BID, (Reported) Entered as Reported by: ILA COLEMAN on 02/21/22 1013 Valsartan (Valsartan) 160 Mg Tablet, 160 MG PO DAILY, (Reported) Entered as Reported by: ILA COLEMAN on 10/17/20 1134 Past Pltlcan-Dgrydd-Pcuybf Hx Patient Social History Tobacco Use?: No Use of E-Cig and/or Vaping dev: No Substance use?: No Alcohol Use?: No Pt feels they are or have been: No Immunizations Up To Date Tetanus Booster (TDap): Unknown PED Vaccines UTD: Yes Influenza Vaccine Up-to-Date: Yes; Up-to-Date First/Initial COVID19 Vaccinat: 2020 Second COVID19 Vaccination Teo: 2020 COVID19 Vaccine 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: [employer] Seasonal Allergies Seasonal Allergies: No Past Medical History Surgery/Hospitalization HX: DM, HTN, MS, O2 DEPENDANT AT NIGHT TRIPLE BYPASS, PARTIAL HYST, STENTS, EMILY, APPY Surgeries: Yes (triple bypass, partial hyst, heart stent, heart cath,) Cardiac, CABG, Gallbladder, Hysterectomy Respiratory: Yes (O2 WITH ANY ACTIVITY AND AT HS) Pneumonia, COPD Currently Using CPAP: No Currently Using BIPAP: No Cardiac: Yes (BRADYCARDIA; 3 VESSEL CABG 2006; CAROTID DISEASE) Coronary Artery Disease, Heart Attack, High Cholesterol, Hypertension Neurological: Yes Stroke Reproductive Disorders: No Sexually Transmitted Disease: No HIV/AIDS: No Genitourinary: No Gastrointestinal: Yes Gastroesophageal Reflux, Esophagitis, Hiatal Hernia Musculoskeletal: Yes Arthritis, Chronic Back Pain Endocrine: Yes Hypothyroidsim, Diabetes, Non-Insulin dep HEENT: No Cancer: No Psychosocial: No Integumentary: No Blood Disorders: No Adverse Reaction/Blood Tranf: No Family Medical History Arthritis 19 FATHER Asthma 19 MOTHER Cardiovascular disease 19 MOTHER G8 BROTHER G8 SISTER G8 SISTER G8 SISTER Cataracts 19 FATHER Diabetes mellitus 19 MOTHER G8 BROTHER G8 SISTER G8 SISTER G8 SISTER Hypertension 19 MOTHER Myocardial infarction 19 MOTHER G8 SISTER G8 SISTER Parkinson's disease G8 BROTHER Prostate cancer 19 FATHER Respiratory disorder G8 BROTHER Thyroid disease 19 MOTHER Diabetes, various cardiac conditions, cancer Physical Exam Vital Signs Vital Signs - First Documented 07/08/22 18:28 Temp 36.8 Pulse 79 Resp 18 B/P (MAP) 130/61 (84) Capillary Refill : Progress/Results/Core Measures Results/Orders My Orders Orders - BIBI SHARMA APRN Miconazole 2% Powder (Phytoplex Af 2% Po (07/08/22 21:00) Clotrimazole 1% Cream (Lotrimin 1% Cream (07/08/22 21:00) Vital Signs/I&O 07/08/22 18:28 Temp 36.8 Pulse 79 Resp 18 B/P (MAP) 130/61 (84) Blood Pressure Mean: 84 Departure Impression Primary Impression: Cutaneous candidiasis Disposition: HOME, SELF-CARE Condition: Stable/Unchanged Departure-Patient Inst. Decision time for Depature: 19:36 Referrals: [facility] (PCP/Family) Primary Care Physician Patient Instructions: Fungal Skin Rash Add. Discharge Instructions: Plan: 1. Keep area as dry as possible as this will help heal the current yeast infection and prevent recurrent or worsening symptoms. 2. Wash the area thoroughly and allowed to air dry or pat dry with a cotton towel, you can even use your blow dryer on the lowest heat setting to help dry the area. 3. Apply the cream thin layer along with the powder and place a cotton towel, shirt, clean sock under the breast and in the groin to help prevent the skin from sitting on top of itself. 4. Call your doctors office for David in the morning to schedule close follow- up. 5. Return to the ER for any new, concerning, worsening symptoms. All discharge instructions reviewed with patient and/or family. Voiced understanding. Scripts Miconazole Nitrate (Lotrimin AF) 2 % Powder 1 APPFUL TP BID for 14 Days, #90 GM 0 Refills Prov: BIBI SHARMA FACTORY ASSEMBLER 07/08/22 BIBI SHARMA FACTORY ASSEMBLER Jul 08, 2022 19:38
[2022-07-08] MEDS ORDERED: MICO90PO TP (20:23)
[2022-07-08 20:24] VITALS: BP 127/64
[2022-07-08] MEDS ORDERED: CLOTRIMAZOLE 1% CREAM (LOTRIMIN) 30 GM TOP SCH (21:00)
[2022-07-08] MEDS ORDERED: MICONAZOLE 2% POWDER (DESENEX AF) 90 GM TOP SCH (21:00)
== END 2022-07-08 20:24 | disposition home or self-care (01) ==
LOC: EDUNIT# 17:45 → ER 17:47
DX: B37.2 Candidiasis of skin and nail (principal)
CPT/HCPCS: 99281

== ENCOUNTER 2022-07-11 13:04 | Emergency (ER) | payer MEDICARE, MEDICAID ==
[~2022-07-11 13:04] MED LIST changes: +MICO90PO TP
--- NOTE | 2022-07-11 13:59 | ED Integumentary General ---
General Chief Complaint: Skin/Wound Problems Stated Complaint: INFECTION UNDER LT BREAST AND ON GROIN Nursing Triage Note: PT AMB TO FT[facility] WITH C/O R GROIN AND R BREAST AREA YEAST INFECTION. PT STATES IT STARTED MOVING TOWARD THE L BREAST TODAY ALSO. PT HAS BEEN SEEN HERE AND AT HER PCP FOR THIS ISSUE IN THE LAST WEEK Source: patient Exam Limitations: no limitations History of Present Illness Date Seen by Provider: Jul 11, 2022 Time Seen by Provider: 14:00 Initial Comments Patient has been dealing with yeast infection under right breast and bilateral groin for the past few weeks. Was seen here recently for the same complaints. Has been started on different topical medications and was started on Doxycycline two days ago. States that none of treatments that are being done are helping. States that she was told that she needs admission to the hospital to receive IV antibiotics to help her get rid of this infection. Is diabetic. Reports that her blood sugars have been running okay. Denies fever. Does have occasional drainage from the area. Timing/Duration: week (few weeks) Severity: moderate Location: torso, genitalia Possible Cause: no cause identified Modifying Factors: improves with other (no change with medications provided) Associated Symptoms: blisters, change in skin texture; No edema, No fever; rash Allergies and Home Medications Allergies Coded Allergies: fentanyl (Unverified Allergy, Intermediate, SEVERE NAUSEA/VOMITTING, 06/07/11) morphine (Verified Allergy, Unknown, 07/19/18) tramadol (Verified Allergy, Unknown, 09/01/08) Patient Home Medication List Home Medication List Reviewed: Yes Acetaminophen (Acetaminophen) 500 Mg Tablet, 1,000 MG PO Q6H PRN for PAIN-MILD, (Reported) Entered as Reported by: DANIEL VENTURA on 12/21/17 1321 Amlodipine Besylate (Amlodipine Besylate) 2.5 Mg Tablet, 2.5 MG PO DAILY, (Reported) Entered as Reported by: ILA COLEMAN on 10/17/20 1134 Aspirin (Aspirin EC) 81 Mg Tablet.dr, 81 MG PO DAILY, (Reported) Entered as Reported by: JULIETA TOBIAS on 07/20/18 0848 Atorvastatin Calcium (Atorvastatin Calcium) 80 Mg Tablet, 80 MG PO HS, (Reported) Entered as Reported by: ILA COLEMAN on 10/17/20 1134 Cholecalciferol (Vitamin D3) (Vitamin D3) 25 Mcg (1000 Unit) Tablet, 25 MCG PO DAILY, (Reported) Entered as Reported by: ILA COLEMAN on 02/21/22 1013 Clopidogrel Bisulfate (Clopidogrel) 75 Mg Tablet, 75 MG PO DAILY, (Reported) Entered as Reported by: JULIETA TOBIAS on 05/20/16 0908 Dulaglutide (Trulicity) 0.75 Mg/0.5 Ml Pen.injctr, 0.75 MG SQ SAT, (Reported) Entered as Reported by: YOSEF KING on 02/21/22 0642 Fenofibrate (Fenofibrate) 160 Mg Tablet, 160 MG PO HS, (Reported) Entered as Reported by: JULIETA TOBIAS on 07/20/18 0848 Fluconazole (Diflucan) 150 Mg Tablet, 150 MG PO DAILY Prescribed by: Lou Kasper on 07/11/22 1401 Isosorbide Mononitrate (Isosorbide Mononitrate ER) 60 Mg Tab, 60 MG PO DAILY, (Reported) Entered as Reported by: JULIETA TOBIAS on 05/20/16 0908 Levothyroxine Sodium (Levothyroxine Sodium) 112 Mcg Tablet, 112 MCG PO DAILY, (Reported) Entered as Reported by: ILA COLEMAN on 01/04/20 1031 Meclizine HCl (Meclizine HCl) 25 Mg Tablet, 25 MG PO TID PRN for DIZZINESS Prescribed by: CHAPIS MARY on 02/22/22 1058 Metformin HCl (Metformin HCl) 1,000 Mg Tablet, 1,000 MG PO DAILY Prescribed by: AZAR RODARTE on 02/22/22 0844 Miconazole Nitrate (Lotrimin AF) 2 % Powder, 1 APPFUL TP BID Prescribed by: BIBI SHARMA on 07/08/222022 Nitroglycerin (Nitroglycerin) 0.4 Mg Tab.subl, 0.4 MG SL UD PRN for CHEST PAIN, (Reported) Entered as Reported by: ILA COLEMAN on 02/21/22 1013 Pantoprazole Sodium (Pantoprazole Sodium) 40 Mg Tablet.dr, 40 MG PO HS, (Reported) Entered as Reported by: DANIEL VENTURA on 12/21/17 1136 Ranolazine (Ranolazine ER) 1,000 Mg Tab.er.12h, 1,000 MG PO BID, (Reported) Entered as Reported by: ILA COLEMAN on 02/21/22 1013 Valsartan (Valsartan) 160 Mg Tablet, 160 MG PO DAILY, (Reported) Entered as Reported by: ILA COLEMAN on 10/17/20 1134 Review of Systems Review of Systems Constitutional: No chills, No fever EENTM: no symptoms reported Respiratory: no symptoms reported Cardiovascular: no symptoms reported Gastrointestinal: no symptoms reported Genitourinary: no symptoms reported Skin: see HPI, change in color, pruritus, rash Psychiatric/Neurological: No Symptoms Reported All Other Systems Reviewed Negative Unless Noted: Yes Past Fbtzrkg-Qfdzfz-Bgqtus Hx Patient Social History Tobacco Use?: No Use of E-Cig and/or Vaping dev: No Substance use?: No Alcohol Use?: No Pt feels they are or have been: No Immunizations Up To Date Tetanus Booster (TDap): Unknown PED Vaccines UTD: Yes First/Initial COVID19 Vaccinat: 2020 Second COVID19 Vaccination Teo: 2020 Third COVID19 Vaccination Date: YES Seasonal Allergies Seasonal Allergies: No Past Medical History Surgery/Hospitalization HX: DM, HTN, [place], O2 DEPENDANT AT NIGHT TRIPLE BYPASS, PARTIAL HYST, STENTS, EMILY, APPY Surgeries: Yes (triple bypass, partial hyst, heart stent, heart cath,) Cardiac, CABG, Gallbladder, Hysterectomy Respiratory: Yes (O2 WITH ANY ACTIVITY AND AT HS) Pneumonia, COPD Currently Using CPAP: No Currently Using BIPAP: No Cardiac: Yes (BRADYCARDIA; 3 VESSEL CABG 2006; CAROTID DISEASE) Coronary Artery Disease, Heart Attack, High Cholesterol, Hypertension Neurological: Yes Stroke Reproductive Disorders: No Sexually Transmitted Disease: No HIV/AIDS: No Genitourinary: No Gastrointestinal: Yes Gastroesophageal Reflux, Esophagitis, Hiatal Hernia Musculoskeletal: Yes Arthritis, Chronic Back Pain Endocrine: Yes Hypothyroidsim, Diabetes, Non-Insulin dep HEENT: No Cancer: No Psychosocial: No Integumentary: No Blood Disorders: No Adverse Reaction/Blood Tranf: No Family Medical History Reviewed Nursing Family Hx Arthritis 19 FATHER Asthma 19 MOTHER Cardiovascular disease 19 MOTHER G8 BROTHER G8 SISTER G8 SISTER G8 SISTER Cataracts 19 FATHER Diabetes mellitus 19 MOTHER G8 BROTHER G8 SISTER G8 SISTER G8 SISTER Hypertension 19 MOTHER Myocardial infarction 19 MOTHER G8 SISTER G8 SISTER Parkinson's disease G8 BROTHER Prostate cancer 19 FATHER Respiratory disorder G8 BROTHER Thyroid disease 19 MOTHER Diabetes, various cardiac conditions, cancer Physical Exam Vital Signs Vital Signs - First Documented 07/11/22 13:24 Temp 36.7 Pulse 62 Resp 16 B/P (MAP) 117/70 (86) Capillary Refill : General Appearance: WD/WN, no apparent distress Neck: full range of motion, normal inspection Extremities: normal range of motion, non-tender, normal inspection Neurologic/Psychiatric: alert, normal mood/affect, oriented x 3 Skin: damp, rash (excoriated yeast rash appreciated under right breast, left breast with erythema to medial side underneath breast, no drainage, no secondary signs of infection) Skin Problem Location: torso Skin Problem Character: drainage, erythema, rash, tenderness Lymphatic: no adenopathy Progress/Results/Core Measures Results/Orders Vital Signs/I&O 07/11/22 07/11/22 13:24 14:21 Temp 36.7 36.7 Pulse 62 62 Resp 16 16 B/P (MAP) 117/70 (86) 117/70 Blood Pressure Mean: 86 Progress Progress Note : Progress Note Patient has been treated with a few topical medications and recently started on Doxycycline for her yeast infection. She has been on this medication for the past few days and has not noticed a difference in her symptoms at all. Explained to patient that she does not have a bacterial infection, therefore the antibiotics will not help. She was instructed to continue the powder and cream that she was prescribed previously. She was instructed to stop the antibiotics. I will send home on Diflucan for her to take daily for 2 weeks due to the severity of the infection. Instructed on the importance of keeping the area clean and dry. Reasons to return to the ER were discussed with patient in addition. Departure Impression Primary Impression: Yeast infection Disposition: 01 HOME, SELF-CARE Condition: Stable Departure-Patient Inst. Decision time for Depature: 13:59 Referrals: [facility] (PCP/Family) Primary Care Physician Patient Instructions: Yeast Infection (DC) Add. Discharge Instructions: All discharge instructions reviewed with patient and/or family. Voiced understanding. 1. Home and rest. 2. Continue powder or cream that was prescribed at home. 3. Stop the antibiotics that you were given. 4. Follow up with PCP as needed. 5. Start Diflucan and take as directed until finished. 6. Return here if worse or concerns. Scripts Fluconazole (Diflucan) 150 Mg Tablet 150 MG PO DAILY for 14 Days, #14 TAB Prov: LOU KASPER APRN 07/11/22 LOU KASPER APRN Jul 11, 2022 13:59
[2022-07-11] MEDS ORDERED: FLUC150T PO (14:01)
[2022-07-11 14:21] VITALS: BP 117/70
== END 2022-07-11 14:21 | disposition home or self-care (01) ==
LOC: EDUNIT# 13:04 → ER 13:07
DX: B37.9 Candidiasis, unspecified (principal)
CPT/HCPCS: 99281

== ENCOUNTER 2023-01-09 18:50 | Observation (INO) | payer MEDICARE, MEDICAID ==
[~2023-01-09] VITALS: Ht 152.4 cm; Wt 67.4 kg
[~2023-01-09 18:50] MED LIST changes: +FLUC150T PO
--- NOTE | 2023-01-09 19:04 | ED Chest Pain ---
General Chief Complaint: Chest Pain Stated Complaint: CHEST PAIN Nursing Triage Note: PT TO [facility] WITH CC OF CHEST PAIN, PT TOOK 2 NITRO BEFORE EMS ARRIVAL AND WAS STILL HURTING, EMS PUT ON 1 INCH OF NITRO PASTE AND PT IS PAIN FREE ON ARRIVAL, HX OF CABG Source: patient, EMS Exam Limitations: no limitations History of Present Illness Date Seen by Provider: Jan 09, 2023 Time Seen by Provider: 18:50 Initial Comments 77-year-old female with history of coronary artery disease status post three- vessel bypass grafting in 2006 presents via EMS from home for chest pain. She states symptoms started about 5:00 this evening and have been constant since that time. She tried 2 nitroglycerin at home prior to arrival which did not help her. Per EMS crew her initial blood pressure was 180 systolic on their arrival. They placed nitroglycerin paste and her blood pressures have improved during transport, now 1 20-1 30 systolic. On arrival the patient states that her pain has subsided. EMS also gave her 324 mg of aspirin in route. She tells me she has a stress test annually. All available outpatient records are reviewed and she had a heart cath in February 2022 secondary to abnormal stress testing, the results are below. She does wear 2 L of oxygen via nasal cannula chronically for COPD and has not had to change this. No URI type symptoms, fevers chills cough that is new, abdominal pain or changes in bowel or bladder habits. No unilateral lower extremity pain, swelling, recent surgeries or periods of immobility. February 2022 Heart Cath CONCLUSION: 1. Occluded LAD and GALLEGOS to LAD, patent vein graft to the diagonal artery filling the LAD with small vessel disease distally 2. Occluded vein graft to the obtuse marginal branch, occluded obtuse marginal branch, with mild disease in the circumflex artery nonobstructive disease 3. Mild disease in the dominant right coronary artery nonobstructive disease 4. Normal left ventricular end-diastolic pressure DISCUSSION AND RECOMMENDATION: Coronary anatomy has not changed significantly compared to the study of 2016. Still having small vessel disease in the LAD probably the reason for her abnormal stress test. Medical therapy is recommended no intervention is warranted All other systems reviewed and negative except documented per HPI. Voice recognition software was used to help create this chart Allergies and Home Medications Allergies Coded Allergies: fentanyl (Unverified Allergy, Intermediate, SEVERE NAUSEA/VOMITTING, 06/07/11) morphine (Verified Allergy, Unknown, 07/19/18) tramadol (Verified Allergy, Unknown, 09/01/08) Patient Home Medication List Home Medication List Reviewed: Yes Acetaminophen (Acetaminophen) 500 Mg Tablet, 1,000 MG PO Q6H PRN for PAIN-MILD, (Reported) Entered as Reported by: DANIEL VENTURA on 12/21/17 1321 Amlodipine Besylate (Amlodipine Besylate) 2.5 Mg Tablet, 2.5 MG PO DAILY, (Reported) Entered as Reported by: ILA COLEMAN on 10/17/20 1134 Aspirin (Aspirin EC) 81 Mg Tablet.dr, 81 MG PO DAILY, (Reported) Entered as Reported by: JULIETA TOBIAS on 07/20/18 0848 Atorvastatin Calcium (Atorvastatin Calcium) 80 Mg Tablet, 80 MG PO HS, (Reported) Entered as Reported by: ILA COLMEAN on 10/17/20 1134 Cholecalciferol (Vitamin D3) (Vitamin D3) 25 Mcg (1000 Unit) Tablet, 25 MCG PO DAILY, (Reported) Entered as Reported by: ILA COLEMAN on 02/21/22 1013 Clopidogrel Bisulfate (Clopidogrel) 75 Mg Tablet, 75 MG PO DAILY, (Reported) Entered as Reported by: JULIETA TOBIAS on 05/20/16 0908 Dulaglutide (Trulicity) 0.75 Mg/0.5 Ml Pen.injctr, 0.75 MG SQ SAT, (Reported) Entered as Reported by: YOSEF KING on 02/21/22 0642 Fenofibrate (Fenofibrate) 160 Mg Tablet, 160 MG PO HS, (Reported) Entered as Reported by: JULIETA TOBIAS on 07/20/18 0848 Fluconazole (Diflucan) 150 Mg Tablet, 150 MG PO DAILY Prescribed by: Lou Pizarro on 07/11/22 1401 Isosorbide Mononitrate (Isosorbide Mononitrate ER) 60 Mg Tab, 60 MG PO DAILY, (Reported) Entered as Reported by: JULIETA TOBIAS on 05/20/16 0908 Levothyroxine Sodium (Levothyroxine Sodium) 112 Mcg Tablet, 112 MCG PO DAILY, (Reported) Entered as Reported by: ILA COLEMAN on 01/04/20 1031 Meclizine HCl (Meclizine HCl) 25 Mg Tablet, 25 MG PO TID PRN for DIZZINESS Prescribed by: CHAPIS MARY on 02/22/22 1058 Metformin HCl (Metformin HCl) 1,000 Mg Tablet, 1,000 MG PO DAILY Prescribed by: AZAR RODARTE on 02/22/22 0844 Miconazole Nitrate (Lotrimin AF) 2 % Powder, 1 APPFUL TP BID Prescribed by: BIBI SHARMA on 07/08/222022 Nitroglycerin (Nitroglycerin) 0.4 Mg Tab.subl, 0.4 MG SL UD PRN for CHEST PAIN, (Reported) Entered as Reported by: ILA COLEMAN on 02/21/22 1013 Pantoprazole Sodium (Pantoprazole Sodium) 40 Mg Tablet.dr, 40 MG PO HS, (Reported) Entered as Reported by: DANIEL VENTURA on 12/21/17 1136 Ranolazine (Ranolazine ER) 1,000 Mg Tab.er.12h, 1,000 MG PO BID, (Reported) Entered as Reported by: ILA COLEMAN on 02/21/22 1013 Valsartan (Valsartan) 160 Mg Tablet, 160 MG PO DAILY, (Reported) Entered as Reported by: ILA COLEMAN on 10/17/20 1134 Review of Systems Review of Systems Constitutional: no symptoms reported Past Lfhnozc-Knfwgx-Gjomdz Hx Patient Social History Tobacco Use?: Yes Smoking Status: Former Smoker Substance use?: No Alcohol Use?: No Immunizations Up To Date Tetanus Booster (TDap): Unknown PED Vaccines UTD: Yes First/Initial COVID19 Vaccinat: 2020 Second COVID19 Vaccination Teo: 2020 Third COVID19 Vaccination Date: YES Seasonal Allergies Seasonal Allergies: No Past Medical History Surgery/Hospitalization HX: DM, HTN, [place], O2 DEPENDANT AT NIGHT TRIPLE BYPASS, PARTIAL HYST, STENTS, EMILY, APPY Surgeries: Yes (triple bypass, partial hyst, heart stent, heart cath,) Cardiac, CABG, Gallbladder, Hysterectomy Respiratory: Yes (O2 WITH ANY ACTIVITY AND AT HS) Pneumonia, COPD Currently Using CPAP: No Currently Using BIPAP: No Cardiac: Yes (BRADYCARDIA; 3 VESSEL CABG 2006; CAROTID DISEASE) Coronary Artery Disease, Heart Attack, High Cholesterol, Hypertension Neurological: Yes Stroke Reproductive Disorders: No Sexually Transmitted Disease: No HIV/AIDS: No Genitourinary: No Gastrointestinal: Yes Gastroesophageal Reflux, Esophagitis, Hiatal Hernia Musculoskeletal: Yes Arthritis, Chronic Back Pain Endocrine: Yes Hypothyroidsim, Diabetes, Non-Insulin dep HEENT: No Cancer: No Psychosocial: No Integumentary: No Blood Disorders: No Adverse Reaction/Blood Tranf: No Family Medical History Reviewed Nursing Family Hx Arthritis 19 FATHER Asthma 19 MOTHER Cardiovascular disease 19 MOTHER G8 BROTHER G8 SISTER G8 SISTER G8 SISTER Cataracts 19 FATHER Diabetes mellitus 19 MOTHER G8 BROTHER G8 SISTER G8 SISTER G8 SISTER Hypertension 19 MOTHER Myocardial infarction 19 MOTHER G8 SISTER G8 SISTER Parkinson's disease G8 BROTHER Prostate cancer 19 FATHER Respiratory disorder G8 BROTHER Thyroid disease 19 MOTHER No Pertinent Family Hx Diabetes, various cardiac conditions, cancer Physical Exam Vital Signs Vital Signs - First Documented 01/09/23 18:53 Temp 35.9 Pulse 58 Resp 18 B/P (MAP) 137/67 (90) Pulse Ox 99 O2 Delivery Nasal Cannula O2 Flow Rate 2.00 Capillary Refill : Less Than 3 Seconds Height, Weight, BMI Height: 5'0" Weight: 161lbs. 11.2oz. 73.861918br; 28.00 BMI Method:Stated General Appearance: No Apparent Distress, WD/WN HEENT: Normal ENT Inspection, Pharynx Normal Neck: Full Range of Motion, Normal Inspection, Non Tender, Supple Respiratory: Chest Non Tender, Lungs Clear, Normal Breath Sounds, No Accessory Muscle Use, No Respiratory Distress Cardiovascular: Regular Rate, Rhythm, No Murmur, Normal Peripheral Pulses Gastrointestinal: Normal Bowel Sounds, No Organomegaly, No Pulsatile Mass, Non Tender, Soft Extremity: Normal Capillary Refill, Normal Inspection, Normal Range of Motion, Non Tender, No Calf Tenderness, No Pedal Edema Neurologic/Psychiatric: Alert, Oriented x3, Normal Mood/Affect Skin: Normal Color, Warm/Dry Progress/Results/Core Measures Results/Orders Lab Results Laboratory Tests Test 01/09/23 18:58 Range/Units White Blood Count 6.8 4.3-11.0 10^3/uL Red Blood Count 3.68 L 3.80-5.11 10^6/uL Hemoglobin 10.5 L 11.5-16.0 g/dL Hematocrit 32 L 35-52 % Mean Corpuscular Volume 88 80-99 fL Mean Corpuscular Hemoglobin 29 25-34 pg Mean Corpuscular Hemoglobin Concent 32 32-36 g/dL Red Cell Distribution Width 14.7 H 10.0-14.5 % Platelet Count 300 130-400 10^3/uL Mean Platelet Volume 9.6 9.0-12.2 fL Immature Granulocyte % (Auto) 0 % Neutrophils (%) (Auto) 55 42-75 % Lymphocytes (%) (Auto) 33 12-44 % Monocytes (%) (Auto) 10 0-12 % Eosinophils (%) (Auto) 2 0-10 % Basophils (%) (Auto) 1 0-10 % Neutrophils # (Auto) 3.7 1.8-7.8 10^3/uL Lymphocytes # (Auto) 2.2 1.0-4.0 10^3/uL Monocytes # (Auto) 0.6 0.0-1.0 10^3/uL Eosinophils # (Auto) 0.1 0.0-0.3 10^3/uL Basophils # (Auto) 0.0 0.0-0.1 10^3/uL Immature Granulocyte # (Auto) 0.0 0.0-0.1 10^3/uL Sodium Level 139 135-145 MMOL/L Potassium Level 3.8 3.6-5.0 MMOL/L Chloride Level 104 98-107 MMOL/L Carbon Dioxide Level 26 21-32 MMOL/L Anion Gap 9 5-14 MMOL/L Blood Urea Nitrogen 16 7-18 MG/DL Creatinine 0.80 0.60-1.30 MG/DL Estimat Glomerular Filtration Rate 75 BUN/Creatinine Ratio 20 Glucose Level 129 H 70-105 MG/DL Calcium Level 9.7 8.5-10.1 MG/DL Corrected Calcium 10.0 8.5-10.1 MG/DL Magnesium Level 1.6 1.6-2.4 MG/DL Total Bilirubin 0.2 0.1-1.0 MG/DL Aspartate Amino Transf (AST/SGOT) 22 5-34 U/L Alanine Aminotransferase (ALT/SGPT) 18 0-55 U/L Alkaline Phosphatase 45 40-136 U/L Troponin I < 0.028 <0.028 NG/ML Total Protein 7.6 6.4-8.2 GM/DL Albumin 3.6 3.2-4.5 GM/DL My Orders Orders - HOLLY ARGUELLO DO Cbc With Automated Diff (01/09/23 18:56) Magnesium (01/09/23 18:56) Chest 1 View, Ap/Pa Only (01/09/23 18:56) Ekg Tracing (01/09/23 18:56) Comprehensive Metabolic Panel (01/09/23 18:56) O2 (01/09/23 18:56) Monitor-Rhythm Ecg Trace Only (01/09/23 18:56) Lipid Panel (01/10/23 06:00) Ed Iv/Invasive Line Start (01/09/23 18:56) Troponin I Alistair (01/09/23 18:56) Troponin I Prentiss (01/09/23 21:00) Acetaminophen Tablet (Tylenol Tablet) (01/09/23 20:00) Ed Admission (Communication) (01/09/23 21:37) Medications Given in ED Current Medications Medications Dose Ordered Sig/Kirsten Route Start Time Stop Time Status Last Admin Dose Admin Acetaminophen 1,000 mg ONCE ONCE PO 01/09/23 20:00 01/09/23 20:01 DC 01/09/23 20:05 1,000 MG Vital Signs/I&O 01/09/23 01/09/23 18:53 18:59 Temp 35.9 Pulse 58 Resp 18 B/P (MAP) 137/67 (90) Pulse Ox 99 98 O2 Delivery Nasal Cannula Nasal Cannula O2 Flow Rate 2.00 2.00 Blood Pressure Mean: 90 Comment Independent interpretation of EKG shows sinus rhythm at a rate of 57 bpm, br adycardia. Normal intervals. Normal axis. No ST or T wave abnormalities. No ectopy. No STEMI. Departure Communication (Admissions) 1900: Initial differential diagnosis includes ACS, pneumonia, COPD exacerbation, chest pain related to hypertension that has resolved, PE. No indication of PE, negative risk factors and PERC criteria. No indication for imaging in this regard. Chest x-ray is pending. We will go ahead and get a troponin, labs. Her EKG initially is nonischemic. External record review shows heart cath in February 2022 with moderate disease in the right coronary artery and overall very similar to 2016 heart catheterization. Patient is hemodynamically stable and will observe while lab tests and imaging are obtained 0: Remained pain-free throughout her emergency department stay. Second set of cardiac enzymes has been drawn. Spoke with Dr. Araujo who requested patient be admitted to the hospital. Spoke with Dr. Raymond who accepts the patient in admission. Initial set of cardiac enzymes is negative. Independent review of EKG and chest x-ray show EKG to be nonischemic and chest x-ray to be clear of any acute pathology. Electrolytes are unremarkable. CBC is unremarkable, no evidence of anemia. I did remove the Nitropaste from her chest as she was having a headache. We gave her Tylenol for her headache as well. She is admitted in otherwise stable condition. Impression Primary Impression: Chest pain Qualified Codes: R07.9 - Chest pain, unspecified Disposition: ADMITTED INPATIENT Condition: Stable Admissions Decision to Admit Reason: Admit from ER (General) Departure-Patient Inst. Referrals: [facility] (PCP/Family) Primary Care Physician HOLLY ARGUELLO DO Jan 09, 2023 19:04
[2023-01-09 19:05] LABS: BASOPHILS % (AUTO) 1 % (0-10); EOSINOPHILS # (AUTO) 0.1 10^3/uL (0.0-0.3); EOSINOPHILS % (AUTO) 2 % (0-10); HEMATOCRIT 32 % (35-52); HEMOGLOBIN 10.5 g/dL (11.5-16.0); LYMPHOCYTES # (AUTO) 2.2 10^3/uL (1.0-4.0); LYMPHOCYTES % (AUTO) 33 % (12-44); MEAN CORPUSCULAR HEMOGLOBIN 29 pg (25-34); MEAN CORPUSCULAR HGB CONC 32 g/dL (32-36); MEAN CORPUSCULAR VOLUME 88 fL (80-99); MEAN PLATELET VOLUME 9.6 fL (9.0-12.2); MONOCYTES # (AUTO) 0.6 10^3/uL (0.0-1.0); MONOCYTES % (AUTO) 10 % (0-12); NEUTROPHILS # (AUTO) 3.7 10^3/uL (1.8-7.8); NEUTROPHILS % (AUTO) 55 % (42-75); PLATELET COUNT 300 10^3/uL (130-400); WHITE BLOOD COUNT 6.8 10^3/uL (4.3-11.0)
--- NOTE | 2023-01-09 19:16 | Diagnostic Imaging Report ---
EXAM: Chest 1 view, AP/PA only INDICATION: Chest pain. COMPARISON: 02/21/2022. FINDINGS: Sternotomy with CABG. Cardiomegaly with mild pulmonary vascular congestion. New nodular opacity in the right lung base measuring approximately 0.9 cm. No pleural effusion or pneumothorax. No acute osseous finding. IMPRESSION: 1. Cardiomegaly with mild pulmonary vascular congestion. 2. New subcentimeter nodular opacity in the right lung base, indeterminate, and may be artifactual. Recommend nonemergent follow-up with chest CT within one month. Dictated by: Dictated on workstation # [id number]
[2023-01-09 19:20] LABS: ALBUMIN 3.6 GM/DL (3.2-4.5)
[2023-01-09 19:21] LABS: CALCIUM 9.7 MG/DL (8.5-10.1)
[2023-01-09 19:22] LABS: TOTAL PROTEIN 7.6 GM/DL (6.4-8.2)
[2023-01-09 19:24] LABS: BILIRUBIN,TOTAL 0.2 MG/DL (0.1-1.0)
[2023-01-09 19:26] LABS: CREATININE SERUM 0.8 MG/DL (0.60-1.30)
[2023-01-09 19:29] LABS: MAGNESIUM 1.6 MG/DL (1.6-2.4)
[2023-01-09 19:53] LABS: POTASSIUM 3.8 MMOL/L (3.6-5.0)
[2023-01-09] MEDS ORDERED: ACETAMINOPHEN 500 MG TAB (TYLENOL) PO ONE (20:00)
[2023-01-09] MEDS ORDERED: ENOXAPARIN 40 MG/0.4 ML (LOVENOX) SYR SC SCH (21:00)
[2023-01-09] MEDS ORDERED: ONDANSETRON 4 MG/2 ML (SDV) Z0FRAN IV PRN (22:45)
[2023-01-09] MEDS ORDERED: BISACODYL 10 MG SUPP (DULCOLAX) PR PRN (22:45)
[2023-01-09] MEDS ORDERED: ANTACID SUSP 30 ML UDC (MYLANTA) PO PRN (22:45)
[2023-01-09] MEDS ORDERED: MILK OF MAGNESIA 400 MG/5 ML 30 ML UDC PO PRN (22:45)
[2023-01-09] MEDS ORDERED: HYDROmorphone 2 MG/ML VIAL (DILAUDID) IV PRN (22:45)
[2023-01-09] MEDS ORDERED: PATIENT MAY USE OWN MEDS, ALL PO SCH (22:45)
[2023-01-09] MEDS ORDERED: ONDANSETRON 4 MG (ZOFRAN) ORAL DISSOLVE TAB PO PRN (22:45)
[2023-01-09] MEDS ORDERED: polyethylene glycoL POWDER 17 GM (MIRALAX) PACK PO PRN (22:45)
[2023-01-09] MEDS ORDERED: diphenhydrAMINE 50 MG/ML INJ (BENADRYL) IVP PRN (22:45)
[2023-01-09] MEDS ORDERED: ACETAMINOPHEN 325 MG TABLET PO PRN (22:45)
[2023-01-09] MEDS ORDERED: NITROGLYCERIN 0.4 MG SL TABS BTL 25'S SL PRN (22:45)
[2023-01-09] MEDS ORDERED: CALCIUM CARBONATE 500 MG (TUMS) TAB.CHEW PO PRN (22:45)
[2023-01-09] MEDS ORDERED: diphenhydrAMINE 25 MG TAB (BENADRYL) PO PRN (22:45)
[2023-01-09] MEDS ORDERED: LACTULOSE SYRUP 10GM/15ML (ENULOSE) 30ML UDC PO PRN (22:45)
[2023-01-09] MEDS ORDERED: MELATONIN 3 MG TABLET PO PRN (22:45)
[2023-01-09 23:11] VITALS: BP 135/60
[2023-01-09] MEDS ORDERED: RT-ALBUTEROL/IPRATROPIUM 3 ML (DUONEB) VIAL INH PRN (23:15)
[2023-01-10] MEDS: RT-ALBUTEROL/IPRATROPIUM 3 ML (DUONEB) VIAL INH SCH ×2 (02:58→07:22)
[2023-01-10 05:38] LABS: BASOPHILS % (AUTO) 1 % (0-10); EOSINOPHILS # (AUTO) 0.1 10^3/uL (0.0-0.3); EOSINOPHILS % (AUTO) 2 % (0-10); HEMATOCRIT 32 % (35-52); HEMOGLOBIN 10.2 g/dL (11.5-16.0); LYMPHOCYTES # (AUTO) 2.2 10^3/uL (1.0-4.0); LYMPHOCYTES % (AUTO) 35 % (12-44); MEAN CORPUSCULAR HEMOGLOBIN 29 pg (25-34); MEAN CORPUSCULAR HGB CONC 32 g/dL (32-36); MEAN CORPUSCULAR VOLUME 89 fL (80-99); MEAN PLATELET VOLUME 9.9 fL (9.0-12.2); MONOCYTES # (AUTO) 0.6 10^3/uL (0.0-1.0); MONOCYTES % (AUTO) 10 % (0-12); NEUTROPHILS # (AUTO) 3.4 10^3/uL (1.8-7.8); NEUTROPHILS % (AUTO) 53 % (42-75); PLATELET COUNT 275 10^3/uL (130-400); WHITE BLOOD COUNT 6.4 10^3/uL (4.3-11.0)
[2023-01-10 05:57] LABS: ALANINE AMINOTRANSFERASE 14 U/L (0-55); ALBUMIN 3.3 GM/DL (3.2-4.5); ALKALINE PHOSPHATASE 46 U/L (40-136); BILIRUBIN,TOTAL 0.2 MG/DL (0.1-1.0); BUN/CREATININE RATIO 22; CALCIUM 9.7 MG/DL (8.5-10.1); CARBON DIOXIDE 24 MMOL/L (21-32); CHLORIDE 105 MMOL/L (98-107); CHOLESTEROL 145 MG/DL (< 200); CREATININE SERUM 0.77 MG/DL (0.60-1.30); GFR ESTIMATED 79; GLUCOSE 174 MG/DL (70-105); HDL CHOLESTEROL 36 MG/DL (40-60); POTASSIUM 3.6 MMOL/L (3.6-5.0); SODIUM 141 MMOL/L (135-145); TRIGLYCERIDES 199 MG/DL (<150); VLDL CHOLESTEROL 40 MG/DL (5-40)
[2023-01-10 08:00] VITALS: BP 135/59
[2023-01-10 08:11] VITALS: BP 135/60
[2023-01-10] MEDS ORDERED: SENNOSIDES 8.6 MG (SENOKOT) TAB PO SCH (09:00)
[2023-01-10] MEDS ORDERED: DOCUSATE SODIUM 100 MG (COLACE) CAP PO SCH (09:00)
[2023-01-10] MEDS ORDERED: ASPIRIN E.C. 81 MG (ECOTRIN) TAB PO SCH (09:00)
[2023-01-10] MEDS ORDERED: NITROGLYCERIN 0.4 MG SL TABS BTL 25'S SL PRN (09:30)
[2023-01-10] MEDS ORDERED: ACETAMINOPHEN 500 MG TAB (TYLENOL) PO PRN (09:30)
[2023-01-10] MEDS ORDERED: MECLIZINE 25 MG (ANTIVERT) TAB PO PRN (09:30)
[2023-01-10] MEDS ORDERED: fluCOnazole (DIFLUCAN) 100 MG TAB PO SCH (09:43)
[2023-01-10] MEDS ORDERED: amLODIPine 5 MG (NORVASC) TAB PO SCH (09:44)
[2023-01-10] MEDS ORDERED: CLOPIDOGREL 75 MG (PLAVIX) TABLET PO SCH (09:45)
[2023-01-10] MEDS ORDERED: LEVOTHYROXINE 112 MCG (LEVOTHROID) TAB PO SCH (09:45)
[2023-01-10] MEDS ORDERED: ISOSORBIDE MONONITRATE 60 MG (IMDUR) TAB PO SCH (09:46)
--- NOTE | 2023-01-10 09:53 | Short Stay Summary-Hospitalist ---
SIDNEY RAYMUNDO 01/10/23 0953: History of Present Illness HPI/Chief Complaint Shelli is a 77 yo F w/ hx of CAD s/p triple bypass, COPD on 2L, and T2DM who presented yesterday evening with cp that was not relieved by her nitroglycerin. EMS reported sbp in 180s, and administered nitro paste. Chest pain resolved en route to hospital. W/u revealed nonischemic ekg, nonacute cxr, and negative troponins. Bp well controlled now. Shelli says she feels well now and is ready to go home. Denies chest pain, sob, numbness, tingling. Source: patient Date Seen 01/10/23 Time Seen by a Provider: 11:00 Attending Physician [place] PCP Admitting Physician: Renae Whitt DO Attending Physician: Renae Whitt DO Referring Physician Date of Admission Jan 09, 2023 at 22:29 Home Medications & Allergies Home Medications Reviewed patient Home Medication Reconciliation performed by pharmacy medication reconciliations office automation technician and/or nursing. Patients Allergies have been reviewed. Allergies Allergies Coded Allergies tramadol (Verified Allergy, Severe, Rash, 01/10/23) fentanyl (Unverified Allergy, Intermediate, SEVERE NAUSEA/VOMITTING, 06/07/11) Past Medical/Social/Family Hx Patient Social History Tobacco Use?: No Smoking Status: Former Smoker Substance use?: No Alcohol Use?: No Pt stated abuse/neglect: No Immunizations Up To Date Influenza Vaccine Up-to-Date: Yes; Up-to-Date First/Initial COVID19 Vaccinat: 2020 Second COVID19 Vaccination Teo: 2020 Tetanus Booster (TDap): Unknown Date of Pneumonia Vaccine: Aug 03, 2017 Current Status Advance Directives: No Primary Language: Khmer Preferred Spoken Language: Khmer Is interpretation needed?: No Sensory deficits: Vision impairment Implanted or Applied Medical D: Stents Past Medical History COPD with supplemental oxygen use 1-2 L baseline NIDDM HLD CAD s/p bypass x 3 Hypothyroidism HTN SurgHx: CABG Cataracts Cholecystectomy Family Medical History Family Hx: Diabetes, various cardiac conditions, cancer Review of Systems Constitutional: No chills, No diaphoresis, No dizziness, No fever EENTM: No blurred vision Respiratory: No cough, No short of breath Cardiovascular: No chest pain, No palpitations Gastrointestinal: No abdominal pain, No constipation, No diarrhea Skin: no symptoms reported Psychiatric/Neurological: Denies Headache, Denies Numbness, Denies Tingling All Other Systems Reviewed Negative Unless Noted: Yes Physical Exam Physical Exam Vital Signs Vital Signs - First Documented 01/09/23 18:53 Temp 35.9 Pulse 58 Resp 18 B/P (MAP) 137/67 (90) Pulse Ox 99 O2 Delivery Nasal Cannula O2 Flow Rate 2.00 Capillary Refill : Less Than 3 Seconds Height, Weight, BMI Height: 5'0" Weight: 161lbs. 11.2oz. 73.086310pb; 29.01 BMI Method:Stated General Appearance: No Apparent Distress, WD/WN HEENT: Normal ENT Inspection, Pharynx Normal Neck: Full Range of Motion, Normal Inspection, Non Tender, Supple Respiratory: Chest Non Tender, Lungs Clear, Normal Breath Sounds, No Accessory Muscle Use, No Respiratory Distress Cardiovascular: Regular Rate, Rhythm, No Murmur, Normal Peripheral Pulses Gastrointestinal: Normal Bowel Sounds, No Organomegaly, No Pulsatile Mass, Non Tender, Soft Extremity: Normal Capillary Refill, Normal Inspection, Normal Range of Motion, Non Tender, No Calf Tenderness, No Pedal Edema Neurologic/Psychiatric: Alert, Oriented x3, Normal Mood/Affect Skin: Normal Color, Warm/Dry Results Results/Procedures Labs Laboratory Tests 01/09/23 18:58 01/10/23 05:15 Patient resulted labs reviewed. Short Stay Diagnosis Discharge Diagnosis-Short Stay Admission Diagnosis Chest Pain Final Discharge Diagnosis Chest Pain Conclusion Plan Chest Pain, nonspecific -cxr non acute -ekg, nonischemic -troponin wnl -cardiology on board HTN HLD NIDDM -home meds COPD -on 2 L baseline Clinical Quality Measures AMI/AHF: ASA po Prior to arrival: RENAE Crum DO 01/11/23 0616: Past Medical/Social/Family Hx Patient Social History Marrital Status: single Review of Systems Constitutional: see HPI Supervisory-Addendum Brief Verification & Attestation Participated in pt care: history, MDM, physical Personally performed: exam, history, MDM, supervision of care Care discussed with: Medical Student Procedures: n/a Results interpretation: Verified all documentation Verification and Attestation of Medical Student E/M Service A medical student performed and documented this service in my presence. I reviewed and verified all information documented by the medical student and made modifications to such information, when appropriate. I personally performed the physical exam and medical decision making. Renae Whitt, Jan 11, 2023,06:16 SIDNEY RAYMUNDO Jan 10, 2023 09:53 RENAE WHITT DO Jan 11, 2023 06:16
--- NOTE | 2023-01-10 10:01 | CONSULTATION REPORT ---
DATE OF SERVICE: 01/10/2023 INPATIENT CONSULTATION CHIEF COMPLAINT: Back discomfort. HISTORY OF PRESENT ILLNESS: The patient is a 77-year-old female with a history of CAD, status post CABG with known occluded GALLEGOS to LAD and vein graft to OM, COPD, on home O2 at 2 liters, hypothyroidism, diabetes, hypertension, who presents for evaluation of back discomfort. The patient states that she experienced acute onset back discomfort, originating in the shoulder blades, which radiated anteriorly. She notes that at that time, she was sitting in the recliner watching the news. She took 2 nitroglycerin and noted mild abatement of symptoms and then recurrence of symptoms. She describes it as a sort of discomfort, burning sensation. EMS was called and arrived and noted her systolic blood pressures to be in the 180s. The patient states that she normally checks her blood pressures and they range in the 130s to 140s systolic. In that setting, she was brought in for evaluation here. Her EKG demonstrates normal sinus rhythm with anterior Q-waves, which are stable from prior EKG. Otherwise, she denies any palpitations, presyncope or syncope. No PND, no orthopnea. No increasing lower extremity edema. No substernal chest discomfort. Also had a chest x-ray, which demonstrates mild congestion and a new subcentimeter nodular opacity in the right lung base. She has been transferred to the floor for further monitoring. REVIEW OF SYSTEMS: All systems were reviewed and are negative except for what has been described in HPI. PAST MEDICAL HISTORY: Significant for CAD, status post CABG, which occluded GALLEGOS to LAD and occluded vein graft to OM, patent saphenous vein graft to the diagonal with retrograde flow into the LAD system, hypertension, COPD, on home O2, hyperlipidemia, diabetes, hypothyroidism. MEDICATIONS: Currently include Norvasc 2.5 mg p.o. daily, aspirin 81 mg p.o. daily, atorvastatin 80 mg p.o. at bedtime, vitamin D3, Plavix 75 mg p.o. daily, Trulicity, TriCor 160 mg p.o. daily, Diflucan 150 mg p.o. daily, Imdur 60 mg p.o. q.a.m., Synthroid 112 mcg p.o. daily, meclizine 25 mg p.o. p.r.n., metformin 1000 mg p.o. daily, nitro sublingual, Protonix 40 mg p.o. daily, Ranexa 1000 mg p.o. b.i.d. and valsartan 160. ALLERGIES: FENTANYL, MORPHINE AND TRAMADOL. PHYSICAL EXAMINATION: VITAL SIGNS: T-max 36.8, heart rate is 40s to 50s, blood pressure 135/59, satting greater than 97% on 2 liters. GENERAL: She is in no acute distress. She is resting comfortably in the bed. NECK: Soft and supple. No cervical lymphadenopathy or thyromegaly. LUNGS: Clear to auscultation bilaterally. No wheezes, rales or rhonchi. HEART: Regular rate and rhythm, normal S1, S2. No murmurs, gallops or rubs. ABDOMEN: Positive bowel sounds, soft, nontender, nondistended, no hepatosplenomegaly. EXTREMITIES: Warm and well perfused. She has no cyanosis, clubbing or edema. SKIN: No lesions, rashes or ecchymosis are noted. LABORATORY DATA: Significant for white blood cell count of 6.4, hematocrit of 32, platelets of 275. LFTs within normal limits. Sodium 141, potassium 3.6, chloride 105, bicarbonate 24, BUN 17, creatinine 0.8. Troponin I is negative x3. Total cholesterol 145, LDL 81, HDL 36, triglycerides are 199. Chest x-ray with mild congestion and new subcentimeter nodular opacity in the right lung base. EKG with normal sinus rhythm, anterior Q-waves, stable from prior. Catheterization in February 2022, demonstrates occluded GALLEGOS to LAD graft, occluded LAD, occluded OM, occluded saphenous vein graft to OM, patent saphenous vein graft to diagonal with retrograde LAD filling, nonobstructive CAD of the right coronary artery, this is stable since 2015 when she had her catheterization prior to the 2021 catheterization. ASSESSMENT AND PLAN: The patient is a 77-year-old female with the above-mentioned medical problems who presents for evaluation of back pain radiating to the anterior chest in the setting of hypertension with systolics up to the 180s. First issue is back discomfort. The patient notes that her symptoms have resolved prior to coming into the hospital. Blood pressures have been stable in the 130s to 140s. She does note that the 180s is quite high for her. She takes all of her medications regularly. Does not miss her antihypertensives. Blood pressure at this point in time is 135/59. I discussed with her and that I was concerned her back/chest discomfort was secondary to her hypertensive episode. As such, we will increase her Norvasc from 2.5 to 5 mg to give her a little bit more protective benefit in that setting and also to target blood pressures in line with JNC 8 recommendations keeping blood pressures less than 130/80. Troponins have been negative x3. EKG is unchanged from prior with normal sinus rhythm and anterior Q-waves. She also had a catheterization less than 1 year ago, which noted stable disease dating back to 2016. At this point in time, if she can get up and walk around without any issues, I do think we could consider getting her discharge from home with closer monitoring and the increase in the Norvasc dosing. Thank you very much for allowing me to participate in her care. Please do not hesitate to call us with questions or concerns. Job ID: [id number] DocumentID: [id number] Dictated Date: 01/10/2023 09:22:00 Hiv Nurse Date: 01/10/2023 09:58:00 Dictated By: AMARJIT ESTES MD
[2023-01-10] MEDS ORDERED: DULA1.5P2 SQ (10:25)
[2023-01-10] MEDS ORDERED: ESOM20CA37 PO (10:25)
[2023-01-10] MEDS ORDERED: DOCU100C37 PO (10:25)
[2023-01-10] MEDS ORDERED: AMLO-250 PO (11:46)
[2023-01-10 12:00] VITALS: BP 153/64
[2023-01-10] MEDS ORDERED: RT-ALBUTEROL/IPRATROPIUM 3 ML (DUONEB) VIAL INH SCH (15:00)
[2023-01-10] MEDS ORDERED: PANTOPRAZOLE 20 MG TABLET (PROTONIX) PO SCH (21:00)
[2023-01-10] MEDS ORDERED: PANTOPRAZOLE 40 MG (PROTONIX) TAB PO SCH (21:00)
[2023-01-11] MEDS ORDERED: ASPIRIN E.C. 81 MG (ECOTRIN) TAB PO SCH (09:00)
[2023-01-11] MEDS ORDERED: VITAMIN D3 25 MCG (1,000 UNITS) TABLET PO SCH (09:00)
== END 2023-01-10 11:45 | disposition home or self-care (01) ==
LOC: EDUNIT# 18:50 → ER 18:51 → CSD 22:29 → UNDOADMOB 22:29 → CSD 23:04 → UNDODISOB 01-10 11:45
PROVIDERS: ADMIT Internal Medicine; ATTEND Internal Medicine
DX: R07.9 Chest pain, unspecified (principal); I10 Essential (primary) hypertension; E78.5 Hyperlipidemia, unspecified; E11.9 Type 2 diabetes mellitus without complications; J44.9 Chronic obstructive pulmonary disease, unspecified; Z99.81 Dependence on supplemental oxygen; Z79.899 Other long term (current) drug therapy; Z87.891 Personal history of nicotine dependence; Z79.84 Long term (current) use of oral hypoglycemic drugs
CPT/HCPCS: 36415; 71045; 80053; 80061; 83735; 84484; 85025; 93005; 93041; 94640; 94660; 94760; 96372

== ENCOUNTER 2023-07-19 21:34 | Observation (INO) | payer MEDICARE, MEDICAID ==
[~2023-07-19] VITALS: Ht 152.4 cm; Wt 65.9 kg
[~2023-07-19 21:34] MED LIST changes: +AMLO-250 PO; +DOCU100C37 PO; +DULA1.5P2 SQ; +ESOM20CA37 PO; -LOSA100T57 PO; +LOSA100T58 PO
[2023-07-19 21:49] LABS: BASOPHILS % (AUTO) 1 % (0-10); EOSINOPHILS # (AUTO) 0.1 10^3/uL (0.0-0.3); EOSINOPHILS % (AUTO) 2 % (0-10); HEMATOCRIT 34 % (35-52); HEMOGLOBIN 10.7 g/dL (11.5-16.0); LYMPHOCYTES # (AUTO) 2.3 10^3/uL (1.0-4.0); LYMPHOCYTES % (AUTO) 35 % (12-44); MEAN CORPUSCULAR HEMOGLOBIN 29 pg (25-34); MEAN CORPUSCULAR HGB CONC 32 g/dL (32-36); MEAN CORPUSCULAR VOLUME 91 fL (80-99); MEAN PLATELET VOLUME 9.6 fL (9.0-12.2); MONOCYTES # (AUTO) 0.7 10^3/uL (0.0-1.0); MONOCYTES % (AUTO) 10 % (0-12); NEUTROPHILS # (AUTO) 3.4 10^3/uL (1.8-7.8); NEUTROPHILS % (AUTO) 52 % (42-75); PLATELET COUNT 302 10^3/uL (130-400); WHITE BLOOD COUNT 6.5 10^3/uL (4.3-11.0)
--- NOTE | 2023-07-19 21:51 | ED Chest Pain ---
General Chief Complaint: Chest Pain Stated Complaint: CHEST PAIN Nursing Triage Note: complaint of chest pain, sob, states took 3 nitro at home with no relief. patient complaint of [place] with EMS. EMS gave 324 ASA and 2 Morphine. Source: patient, EMS, old records History of Present Illness Date Seen by Provider: Jul 19, 2023 Time Seen by Provider: 21:34 Initial Comments PT ARRIVES VIA EMS FROM HOME PT C/O MID STERNAL CHEST PAIN THAT BEGAN AROUND 2000 TONIGHT WHILE SITTING NO RADIATION OF PAIN + SWEATS + SHORTNESS OF BREATH NO NAUSEA/VOMITING NO DIZZINESS OR SYNCOPE NO SWELLING IN LEGS/FEET OR PAIN IN CALVES NO PALPITATIONS PT TOOK NTG X 3 AT HOME, NO RELIEF OF PAIN EMS GAVE 324 MG ASPIRIN AND MORPHINE 2 MG AND PT IS NOW PAIN FREE, OTHER THAN A HEADACHE FROM NTG PT HAS HAD 3 VESSEL CABG FOLLOWED BY STENT X 1 IN 2006 SHE HAS COPD AND IS O2 DEPENDENT AT 2L/NC CONTINUOUSLY SHE HAD " A BAD COLD" ABOUT 2 WEEKS AGO, SHE DID NOT SEEK CARE OR DO ANY HOME COVID TESTS SHE HAS HAD COVID VACCINE X 2 AND NO FLU VACCINE FOR THIS SEASON PCP: DR. POTTS PASTEURIZER: DR. RODARTE --HAD RECENT ROUTINE APPOINTMENT, NO MEDICATION CHANGES Allergies and Home Medications Allergies Coded Allergies: tramadol (Verified Allergy, Severe, Rash, 01/10/23) fentanyl (Unverified Allergy, Intermediate, SEVERE NAUSEA/VOMITTING, 06/07/11) Patient Home Medication List Acetaminophen (Acetaminophen) 500 Mg Tablet, 1,000 MG PO Q6H PRN for PAIN-MILD, (Reported) Entered as Reported by: DANIEL VENTURA on 12/21/17 1321 Amlodipine Besylate (Amlodipine Besylate) 5 Mg Tablet, 5 MG PO DAILY Prescribed by: CHAPIS MARY on 01/10/23 1146 Aspirin (Aspirin EC) 81 Mg Tablet.dr, 81 MG PO DAILY, (Reported) Entered as Reported by: JULIETA TOBIAS on 07/20/18 0848 Atorvastatin Calcium (Atorvastatin Calcium) 80 Mg Tablet, 80 MG PO HS, (Reported) Entered as Reported by: ILA COLEMAN on 10/17/20 1134 Cholecalciferol (Vitamin D3) (Vitamin D3) 25 Mcg (1000 Unit) Tablet, 25 MCG PO DAILY, (Reported) Entered as Reported by: ILA COLEMAN on 02/21/22 1013 Clopidogrel Bisulfate (Clopidogrel) 75 Mg Tablet, 75 MG PO DAILY, (Reported) Entered as Reported by: JULIETA TOBIAS on 05/20/16 0908 Docusate Sodium (Docusate Sodium) 100 Mg Capsule, 200 MG PO HS, (Reported) Entered as Reported by: ILA COLEMAN on 01/10/23 1025 Dulaglutide (Trulicity) 1.5 Mg/0.5 Ml Pen.injctr, 1.5 MG SQ SAT, (Reported) Entered as Reported by: ILA COLEMAN on 01/10/23 1025 Esomeprazole Magnesium (Esomeprazole Magnesium) 20 Mg Capsule.dr, 20 MG PO HS, (Reported) Entered as Reported by: ILA COLEMAN on 01/10/23 1025 Fenofibrate (Fenofibrate) 160 Mg Tablet, 160 MG PO HS, (Reported) Entered as Reported by: JULIETA TOBIAS on 07/20/18 0848 Isosorbide Mononitrate (Isosorbide Mononitrate ER) 60 Mg Tab, 60 MG PO DAILY, (Reported) Entered as Reported by: JULIETA TOBIAS on 05/20/16 0908 Levothyroxine Sodium (Levothyroxine Sodium) 112 Mcg Tablet, 112 MCG PO DAILY, (Reported) Entered as Reported by: ILA COLEMAN on 01/04/20 1031 Nitroglycerin (Nitroglycerin) 0.4 Mg Tab.subl, 0.4 MG SL UD PRN for CHEST PAIN, (Reported) Entered as Reported by: ILA COLEMAN on 02/21/22 1013 Ranolazine (Ranolazine ER) 1,000 Mg Tab.er.12h, 1,000 MG PO BID, (Reported) Entered as Reported by: ILA COLEMAN on 02/21/22 1013 Valsartan (Valsartan) 160 Mg Tablet, 160 MG PO DAILY, (Reported) Entered as Reported by: ILA COLEMAN on 10/17/20 1134 Review of Systems Review of Systems Constitutional: see HPI, diaphoresis EENTM: No Symptoms Reported Respiratory: See HPI Cardiovascular: See HPI Gastrointestinal: See HPI Genitourinary: No Symptoms Reported Musculoskeletal: no symptoms reported Skin: no symptoms reported Psychiatric/Neurological: No Symptoms Reported Endocrine: No Symptoms Reported Hematologic/Lymphatic: No Symptoms Reported Past Ooopwts-Ericwg-Wlehqk Hx Patient Social History Tobacco Use?: No Substance use?: No Alcohol Use?: No Immunizations Up To Date Tetanus Booster (TDap): Unknown PED Vaccines UTD: Yes Influenza Vaccine Up-to-Date: Yes; Up-to-Date First/Initial COVID19 Vaccinat: 2020 Second COVID19 Vaccination Teo: 2020 Third COVID19 Vaccination Date: YES Seasonal Allergies Seasonal Allergies: No Past Medical History Surgery/Hospitalization HX: DM, HTN, [place], O2 DEPENDANT AT NIGHT TRIPLE BYPASS, PARTIAL HYST, STENTS, EMILY, APPY Surgeries: Yes (triple bypass, partial hyst, heart stent, heart cath,) Appendectomy, Cardiac, CABG, Gallbladder, Hysterectomy Respiratory: Yes (O2 WITH ANY ACTIVITY AND AT HS) Pneumonia, COPD Currently Using CPAP: No Currently Using BIPAP: No Cardiac: Yes (BRADYCARDIA; 3 VESSEL CABG 2006; CAROTID DISEASE) Coronary Artery Disease, Heart Attack, High Cholesterol, Hypertension Neurological: Yes Stroke Reproductive Disorders: No Sexually Transmitted Disease: No HIV/AIDS: No Genitourinary: No Gastrointestinal: Yes Gastroesophageal Reflux, Esophagitis, Hiatal Hernia Musculoskeletal: Yes Arthritis, Chronic Back Pain Endocrine: Yes Hypothyroidsim, Diabetes, Non-Insulin dep HEENT: No Cancer: No Psychosocial: No Integumentary: No Blood Disorders: No Adverse Reaction/Blood Tranf: No Family Medical History Arthritis 19 FATHER Asthma 19 MOTHER Cardiovascular disease 19 MOTHER G8 BROTHER G8 SISTER G8 SISTER G8 SISTER Cataracts 19 FATHER Diabetes mellitus 19 MOTHER G8 BROTHER G8 SISTER G8 SISTER G8 SISTER Hypertension 19 MOTHER Myocardial infarction 19 MOTHER G8 SISTER G8 SISTER Parkinson's disease G8 BROTHER Prostate cancer 19 FATHER Respiratory disorder G8 BROTHER Thyroid disease 19 MOTHER No Pertinent Family Hx PAST SURGICAL HISTORY: -3 VESSEL CABG 2006 -CARDIAC CATH WITH STENT X 1 2006 AFTER CABG -CHOLECYSTECTOMY 2006 -APPENDECTOMY -HYSTERECTOMY Physical Exam Vital Signs Vital Signs - First Documented 07/19/23 07/19/23 21:37 21:41 Pulse 62 Resp 18 B/P (MAP) 170/72 (104) Pulse Ox 96 O2 Delivery Room Air O2 Flow Rate 2.00 Capillary Refill : Less Than 3 Seconds Height, Weight, BMI Height: 5'0" Weight: 161lbs. 11.2oz. 73.616408wn; 29.00 BMI Method:Stated General Appearance: No Apparent Distress, WD/WN HEENT: PERRL/EOMI Neck: Full Range of Motion, Normal Inspection, Non Tender, Supple; No Carotid Bruit, No JVD Respiratory: Chest Non Tender, Normal Breath Sounds, No Accessory Muscle Use, No Respiratory Distress Cardiovascular: Regular Rate, Rhythm, No Edema, No JVD, No Murmur, Normal Jannette pheral Pulses Gastrointestinal: Normal Bowel Sounds, No Organomegaly, No Pulsatile Mass, Non Tender, Soft Extremity: Normal Capillary Refill, Normal Inspection, Normal Range of Motion, Non Tender, No Calf Tenderness, No Pedal Edema Neurologic/Psychiatric: Alert, Oriented x3, No Motor/Sensory Deficits, Normal Mood/Affect, permit agent II-XII Norm as Tested Skin: Normal Color, Warm/Dry Progress/Results/Core Measures Results/Orders Lab Results Laboratory Tests Test 07/19/23 21:40 Range/Units White Blood Count 6.5 4.3-11.0 10^3/uL Red Blood Count 3.71 L 3.80-5.11 10^6/uL Hemoglobin 10.7 L 11.5-16.0 g/dL Hematocrit 34 L 35-52 % Mean Corpuscular Volume 91 80-99 fL Mean Corpuscular Hemoglobin 29 25-34 pg Mean Corpuscular Hemoglobin Concent 32 32-36 g/dL Red Cell Distribution Width 14.6 H 10.0-14.5 % Platelet Count 302 130-400 10^3/uL Mean Platelet Volume 9.6 9.0-12.2 fL Immature Granulocyte % (Auto) 1 % Neutrophils (%) (Auto) 52 42-75 % Lymphocytes (%) (Auto) 35 12-44 % Monocytes (%) (Auto) 10 0-12 % Eosinophils (%) (Auto) 2 0-10 % Basophils (%) (Auto) 1 0-10 % Neutrophils # (Auto) 3.4 1.8-7.8 10^3/uL Lymphocytes # (Auto) 2.3 1.0-4.0 10^3/uL Monocytes # (Auto) 0.7 0.0-1.0 10^3/uL Eosinophils # (Auto) 0.1 0.0-0.3 10^3/uL Basophils # (Auto) 0.0 0.0-0.1 10^3/uL Immature Granulocyte # (Auto) 0.0 0.0-0.1 10^3/uL My Orders Orders - TRISHA DUNN DO Cbc With Automated Diff (07/19/23 21:35) Magnesium (07/19/23 21:35) Chest 1 View, Ap/Pa Only (07/19/23 21:35) Ekg Tracing (07/19/23 21:35) Comprehensive Metabolic Panel (07/19/23 21:35) Myoglobin Serum (07/19/23 21:35) Protime With Inr (07/19/23 21:35) Partial Thromboplastin Time (07/19/23 21:35) O2 (07/19/23 21:35) Monitor-Rhythm Ecg Trace Only (07/19/23 21:35) Ed Iv/Invasive Line Start (07/19/23 21:35) Creatine Kinase (07/19/23 21:35) Creatine Kinase Mb (07/19/23 21:35) Lipase (07/19/23 21:35) Amylase (07/19/23 21:35) Bnp Alistair (07/19/23 21:35) Fibrin Degradation Products (07/19/23 21:35) Troponin I Alistair (07/19/23 21:35) Vital Signs/I&O 07/19/23 07/19/23 21:37 21:41 Pulse 62 Resp 18 B/P (MAP) 170/72 (104) Pulse Ox 96 98 O2 Delivery Room Air Nasal Cannula O2 Flow Rate 2.00 Blood Pressure Mean: 104 Initial ECG Impression Date: Jul 19, 2023 Initial ECG Impression Time: 21:42 Initial ECG Rate: 56 Initial ECG Rhythm: Normal Sinus Initial ECG Intervals NC 156 QRS 84 QT/QTC 431/423 Initial ECG Impression: Nonspecific Changes Initial ECG Comparisson: Unchanged Comment INTERPRETED BY ME Diagnostic Imaging Comments CXR--PENDING RADIOLOGIST REVIEW Reviewed: Reviewed by Me Departure Departure-Patient Inst. Referrals: [facility] (PCP/Family) Primary Care Physician TRISHA DUNN DO Jul 19, 2023 21:51
[2023-07-19 21:58] LABS: ALBUMIN 3.7 GM/DL (3.2-4.5); CHLORIDE 105 MMOL/L (98-107); POTASSIUM 3.8 MMOL/L (3.6-5.0); SODIUM 139 MMOL/L (135-145)
[2023-07-19 21:59] LABS: AMYLASE 24 U/L (25-125)
[2023-07-19 22:00] LABS: GLUCOSE 130 MG/DL (70-105); INR 1.1 (0.8-1.4); PROTHROMBIN TIME PATIENT 14.2 SEC (12.2-14.7)
[2023-07-19 22:01] LABS: TOTAL PROTEIN 7.8 GM/DL (6.4-8.2)
[2023-07-19 22:02] LABS: BILIRUBIN,TOTAL 0.3 MG/DL (0.1-1.0); CARBON DIOXIDE 25 MMOL/L (21-32)
[2023-07-19 22:03] LABS: FIBRIN DEGRADATION PRODUCTS 1.05 UG/ML (0.00-0.49)
[2023-07-19 22:04] LABS: ALKALINE PHOSPHATASE 64 U/L (40-136); CREATININE SERUM 0.68 MG/DL (0.60-1.30); GFR ESTIMATED 89
[2023-07-19 22:05] LABS: BUN/CREATININE RATIO 22
[2023-07-19 22:07] LABS: ALANINE AMINOTRANSFERASE 13 U/L (0-55); MAGNESIUM 1.6 MG/DL (1.6-2.4)
[2023-07-19 22:08] LABS: CREATINE KINASE 35 U/L (29-168); LIPASE 33 U/L (8-78)
[2023-07-19 22:15] LABS: CREATINE KINASE MB 0.6 NG/ML (<6.6)
[2023-07-19] MEDS ORDERED: IOHEXOL 350 MG/ML 100 ML (OMNIPAQUE 350) VIAL IV ONE (23:30)
[2023-07-19] MEDS ORDERED: HOLD METFORMIN - RECEIVED CONTRAST 20 ML VIAL IV SCH (23:30)
[2023-07-19] MEDS ORDERED: NS 100 ML (IVPB) BAG IV ONE (23:30)
[2023-07-19] MEDS ORDERED: ONDANSETRON INJECTION 4 MG/2 ML (SDV) IVP ONE (23:45)
[2023-07-20] VITALS (9 sets, daily range): BP systolic 95–190; BP diastolic 37–88
[2023-07-20] MEDS ORDERED: ONDANSETRON INJECTION 4 MG/2 ML (SDV) IV PRN (03:00)
[2023-07-20] MEDS ORDERED: NITROGLYCERIN 0.4 MG SL TABLETS BTL 25'S SL PRN ×2 (03:00→10:15)
[2023-07-20] MEDS ORDERED: CATHETER FLUSH 10 ML SYR IVP PRN (03:00)
[2023-07-20] MEDS ORDERED: morphine INJ 4 MG/ML 1 ML (VIAL/SYRINGE) IV PRN (03:15)
[2023-07-20 04:38] LABS: CHOLESTEROL 129 MG/DL (< 200); HDL CHOLESTEROL 33 MG/DL (40-60); TRIGLYCERIDES 118 MG/DL (<150); VLDL CHOLESTEROL 24 MG/DL (5-40)
[2023-07-20] MEDS: CATHETER FLUSH 10 ML SYR IVP SCH ×3 (06:06→20:02)
--- NOTE | 2023-07-20 06:23 | Diagnostic Imaging Report ---
EXAMINATION: Chest 1 view HISTORY: CHEST PAIN COMPARISON: 01/09/2023 FINDINGS: Heart size and pulmonary vasculature are normal. There are mild interstitial opacities in the lung bases. No pleural effusion or pneumothorax. Surgical changes from median sternotomy and CABG. Degenerative changes of the thoracic spine. Osseous structures are otherwise intact. IMPRESSION: 1. Mild interstitial opacities in the lung bases which may represent atelectasis, edema, or pneumonia. Dictated by: Dictated on workstation # [id number]
--- NOTE | 2023-07-20 06:33 | History & Physical-Hospitalist ---
History of Present Illness HPI/Chief Complaint CC: Chest pain Patient states that she was having midsternal chest pain that started around 8 PM last night. States that it was sharp and felt like her prior episode of heart attack that occurred back in 2017 where patient ended up having CABG. Patient notes that the chest pain did not go away for a couple hours. She received morphine and nitroglycerin in EMS in the ED which eventually resolved her pain. She otherwise denies any shortness of breath, dizziness, headaches, blurry vision, nausea, vomiting, diarrhea, constipation. She does note that the chest pain was initially radiating into her back as well which was noted to be concerning. Source: patient Exam Limitations: no limitations Date Seen 07/20/23 Time Seen by a Provider: 09:15 Attending Physician [place] PCP Admitting Physician: Armin Scanlon MD Attending Physician: Armin Scanlon MD Referring Physician Date of Admission Jul 20, 2023 at 02:21 Home Medications & Allergies Home Medications Reviewed patient Home Medication Reconciliation performed by pharmacy medication reconciliations plasma processing technician and/or nursing. Patients Allergies have been reviewed. Allergies Allergies Coded Allergies tramadol (Verified Allergy, Severe, Rash, 01/10/23) fentanyl (Unverified Allergy, Intermediate, SEVERE NAUSEA/VOMITTING, 06/07/11) Past Gprjlfq-Njiaoh-Ugumuf Hx Patient Social History Tobacco Use?: No Use of E-Cig and/or Vaping dev: No Substance use?: No Alcohol Use?: No Pt feels they are or have been: No Immunizations Up To Date Date of Influenza Vaccine: Aug 16, 2020 First/Initial COVID19 Vaccinat: 2020 Second COVID19 Vaccination Teo: 2020 Tetanus Booster (TDap): Unknown PED Vaccines UTD: Yes Date of Pneumonia Vaccine: Aug 03, 2017 Seasonal Allergies Seasonal Allergies: No Current Status status: No status: No Advance Directives: No Communicates: Verbally Primary Language: Panamanian Preferred Spoken Language: Panamanian Is interpretation needed?: No Sensory deficits: Vision impairment Implanted or Applied Medical D: Stents Past Medical History Surgeries: Appendectomy, Cardiac, CABG, Gallbladder, Hysterectomy Pneumonia, COPD Currently Using CPAP: No Currently Using BIPAP: No Coronary Artery Disease, Heart Attack, High Cholesterol, Hypertension Stroke Sexually Transmitted Disease: No HIV/AIDS: No Gastroesophageal Reflux, Esophagitis, Hiatal Hernia Arthritis, Chronic Back Pain Hypothyroidsim, Diabetes, Non-Insulin dep Blood Disorders: No Adverse Reaction/Blood Tranf: No COPD with supplemental oxygen use 1-2 L baseline NIDDM HLD CAD s/p bypass x 3 Hypothyroidism HTN SurgHx: CABG Cataracts Cholecystectomy Family Medical History Arthritis 19 FATHER Asthma 19 MOTHER Cardiovascular disease 19 MOTHER G8 BROTHER G8 SISTER G8 SISTER G8 SISTER Cataracts 19 FATHER Diabetes mellitus 19 MOTHER G8 BROTHER G8 SISTER G8 SISTER G8 SISTER Hypertension 19 MOTHER Myocardial infarction 19 MOTHER G8 SISTER G8 SISTER Parkinson's disease G8 BROTHER Prostate cancer 19 FATHER Respiratory disorder G8 BROTHER Thyroid disease 19 MOTHER No Pertinent Family Hx PAST SURGICAL HISTORY: -3 VESSEL CABG 2007 -CARDIAC CATH WITH STENT X 1 2007 AFTER CABG -CHOLECYSTECTOMY 2007 -APPENDECTOMY -HYSTERECTOMY Review of Systems Constitutional: No chills, No dizziness, No fever EENTM: No blurred vision Respiratory: No cough, No dyspnea on exertion, No short of breath, No wheezing Cardiovascular: chest pain; No edema, No palpitations Gastrointestinal: No abdominal pain, No constipation, No diarrhea, No nausea, No vomiting Genitourinary: No dysuria Psychiatric/Neurological: Denies Headache Physical Exam Physical Exam Vital Signs Vital Signs - First Documented 07/19/23 07/19/23 07/20/23 21:37 21:41 02:30 Temp 36.8 Pulse 62 Resp 18 B/P (MAP) 170/72 (104) Pulse Ox 96 O2 Delivery Room Air O2 Flow Rate 2.00 Capillary Refill : Less Than 3 Seconds Height, Weight, BMI Height: 5'0" Weight: 161lbs. 11.2oz. [id number]; 28.28 BMI Method:Stated General Appearance: No Apparent Distress HEENT: PERRL/EOMI Neck: Full Range of Motion, Normal Inspection Respiratory: Chest Non Tender, Lungs Clear, Normal Breath Sounds, No Accessory Muscle Use, No Respiratory Distress Cardiovascular: Regular Rate, Rhythm, No Edema, No Murmur Gastrointestinal: Normal Bowel Sounds, Non Tender Extremity: Normal Range of Motion Neurologic/Psychiatric: Alert, Oriented x3 Skin: Warm/Dry Results Results/Procedures Labs Laboratory Tests 07/19/23 21:40 Patient resulted labs reviewed. Imaging: Reviewed Imaging Films, Reviewed Imaging Report Assessment/Plan Admission Diagnosis Chest pain Admission Status: Inpatient Order (span 2 midnights) Reason for Inpatient Admission: Evaluation for chest pain Assessment and Plan Jocelynn is a 78-year-old female with past medical history of bradycardia, CAD status post CABG, hypothyroidism who presented with chest pain. Diagnosis/Problems Diagnosis/Problems (1) Chest pain Status: Acute Assessment & Plan: Patient presented with persistent chest pain that lasted for couple of hours. Work-up in the ED was negative. EKG was normal minus, troponins were negative x3. Chest pain eventually resolved with morphine and nitroglycerin. Given patient's cardiac history, she was ultimately admitted for observation and further work-up. Echocardiogram completed today which does not appear to be concerning either. Cardiology consulted, appreciate recommendations Plan for stress test tomorrow per cardiology, n.p.o. at midnight Continue to monitor on telemetry (2) CAD (coronary artery disease), [place] coronary artery Status: Chronic Assessment & Plan: Patient has a history of coronary artery disease status post CABG in 2006. Continue ENVIRONMENTAL ECONOMIST aspirin and Plavix daily Continue nitroglycerin as needed for pain Continue ENVIRONMENTAL ECONOMIST ranolazine (3) HTN (hypertension) Status: Chronic Assessment & Plan: Blood pressures appear to be well controlled here. We will continue home regimen. Continue home amlodipine 5 mg daily, valsartan 160 mg daily (4) Mixed hyperlipidemia Status: Chronic Assessment & Plan: Continue ENVIRONMENTAL ECONOMIST fenofibrate and atorvastatin 80 (5) Hypothyroidism Status: Chronic Assessment & Plan: Continue ENVIRONMENTAL ECONOMIST levothyroxine 112 mcg daily Qualifiers: Hypothyroidism type: unspecified Qualified Codes: E03.9 - Hypothyroidism, unspecified (6) COPD (chronic obstructive pulmonary disease) Status: Chronic Assessment & Plan: Patient does not appear to be on any inhalers at home and has not required any oxygen here in the hospital. We will continue to monitor. (7) Non-insulin dependent type 2 diabetes mellitus Status: Chronic Assessment & Plan: Continue ENVIRONMENTAL ECONOMIST Trulicity. Clinical Quality Measures AMI/AHF: ASA po Prior to arrival: Yes JALYN KAHN MD, RESIDENT Jul 20, 2023 06:33
--- NOTE | 2023-07-20 07:34 | Diagnostic Imaging Report ---
EXAMINATION: CT angiography of the chest. TECHNIQUE: Contrast enhanced thin section helical images were obtained through the chest with intravenous contrast timed for the optimal opacification of the arterial structures per CTA protocol. Post-processing, reconstructions and interpretation of angiographic images of the vessels was performed. 3D MIP reconstructions were performed and reviewed. All CT scans use one or more of the following dose optimizing techniques: automated exposure control, MA and/or KvP adjustment based on a patient size and exam type, or iterative reconstruction. HISTORY: Chest pain. COMPARISON: None available. FINDINGS: Vascular: Significantly limited evaluation of the pulmonary arteries secondary to lack of opacification from bolus timing. No obvious large filling defect is seen within the main pulmonary artery. There are vascular calcifications of the aorta and coronary vessels without aneurysm. Thyroid: The thyroid is normal. Mediastinum: Heart size is normal without significant pericardial effusion. No suspicious lymphadenopathy. Lungs and airways: There are mild background emphysematous changes of the lungs without consolidation, pleural effusion, or pneumothorax. There is mild atelectasis within the dependent lungs. The airways are normal. Upper abdomen: The gallbladder is surgically absent. Musculoskeletal: Degenerative changes of the spine without suspicious osseous lesion or compression fracture. Surgical changes from median sternotomy and CABG. IMPRESSION: 1. No acute abnormality in the chest. 2. Significantly limited evaluation for pulmonary embolus secondary to lack of contrast enhancement and bolus timing. 3. I agree with the preliminary interpretation. Dictated by: Dictated on workstation # [id number]
[2023-07-20] MEDS: ASPIRIN enteric coated 81MG TABLET PO SCH (08:54)
[2023-07-20] MEDS ORDERED: ISOSORBIDE MONONITRATE 60 MG TABLET PO SCH (10:21)
[2023-07-20] MEDS: ACETAMINOPHEN 500 MG TABLET PO PRN ×2 (10:33→20:01)
[2023-07-20] MEDS: VALSARTAN 80 MG (DIOVAN) TAB PO SCH (10:33)
[2023-07-20] MEDS: VITAMIN D3 25 MCG (1,000 UNITS) TABLET PO SCH (10:33)
[2023-07-20] MEDS: CLOPIDOGREL 75 MG TABLET PO SCH (10:33)
[2023-07-20] MEDS: amLODIPine 5 MG TABLET PO SCH (10:33)
[2023-07-20] MEDS: RANOLAZINE ER 500 MG TABLET PO SCH ×2 (10:34→20:01)
--- NOTE | 2023-07-20 10:37 | Consultation-Cardiology ---
HPI-Cardiology Cardiology Consultation: Date of Consultation 07/20/23 Date of Admission Attending Physician [place] Admitting Physician Admitting Physician: Dee Ortiz MD Attending Physician: Armin Scanlon MD Consulting Physician AMARJIT ESTES MD HPI: Time Seen by a Provider: 09:30 Mrs. Dsouza is a 78-year-old female with a history of CAD status post three- vessel CABG in 2006, COPD on 2 L home O2, GERD, hypertension, hyperlipidemia, chronic chest pain on Ranexa and Imdur who presents for evaluation of chest discomfort. Patient states that she was at home sitting and experienced acute onset chest discomfort associated with shortness of breath diaphoresis. Took 3 nitroglycerin without with normal relief. She describes the discomfort as 10 out of 10 located in the substernal chest. She decided to come into the e mergency room for evaluation. Troponin is negative x3. Chest CT was limited for PE evaluation secondary to contrast timing. She had a chest x-ray which was concerning for pneumonia versus edema versus atelectasis. She notes that she has occasional twinges of chest pain but comments they are not significantly reduced in intensity relative to what she experienced on the day of admission. He notes that her chest discomfort has fully resolved at this point in time. Biggest complaint is a headache. Personal read of EKG demonstrates sinus bradycardia at 41 bpm with anterior Q waves and nonspecific T wave changes in inferior leads, relatively unchanged from January 2023 She denies palpitations, presyncope, syncope, PND, orthopnea, increasing lower extremity edema, acute onset pain radiating to her neck jaw or back. She denies recurrent indigestion episodes Relevant diagnostic studies: EKG in January 2023 demonstrated sinus bradycardia 49 bpm, anterior SC. Cath in 2021: Performed in the setting of stress test demonstrating anterior anterolateral ischemia 1. Occluded LAD and GALLEGOS to LAD, patent vein graft to the diagonal artery filling the LAD with small vessel disease distally 2. Occluded vein graft to the obtuse marginal branch, occluded obtuse marginal branch, with mild disease in the circumflex artery nonobstructive disease 3. Mild disease in the dominant right coronary artery nonobstructive disease 4. Normal left ventricular end-diastolic pressure Review of Systems-Cardiology All Other Systems Reviewed Negative Unless Noted: Yes (All systems were reviewed and are negative except for what is been described in HPI) EQF-Bdrgnm-Kozino Hx Patient Social History Former smoker/When Quit: Jan 22, 2008 2nd Hand Smoke Exposure: No Alcohol Use?: No Pt feels they are or have been: No Immunizations Up To Date Tetanus Booster (TDap): Unknown Date of Pneumonia Vaccine: Aug 03, 2017 Date of Influenza Vaccine: Aug 16, 2020 Past Medical History PMH As described under Assessment. Family Medical History Family Medical History: Family history significant for mother with CAD D, SC, diabetes, hypertension Social history: Tobacco: Last in 2008, smoked 1 to 2 packs/day x 48 years EtOH: Denies Illicit: Denies Family History: Arthritis 19 FATHER Asthma 19 MOTHER Cardiovascular disease 19 MOTHER G8 BROTHER G8 SISTER G8 SISTER G8 SISTER Cataracts 19 FATHER Diabetes mellitus 19 MOTHER G8 BROTHER G8 SISTER G8 SISTER G8 SISTER Hypertension 19 MOTHER Myocardial infarction 19 MOTHER G8 SISTER G8 SISTER Parkinson's disease G8 BROTHER Prostate cancer 19 FATHER Respiratory disorder G8 BROTHER Thyroid disease 19 MOTHER Allergies and Home Medications Allergies Coded Allergies: tramadol (Verified Allergy, Severe, Rash, 01/10/23) fentanyl (Unverified Allergy, Intermediate, SEVERE NAUSEA/VOMITTING, 06/07/11) Patient Home Medication List Home Medication List Reviewed: Yes Acetaminophen (Acetaminophen) 500 Mg Tablet, 1,000 MG PO Q6H PRN for PAIN-MILD, (Reported) Entered as Reported by: DANIEL VENTURA on 12/21/17 1321 Last Action: Continued Amlodipine Besylate (Amlodipine Besylate) 5 Mg Tablet, 5 MG PO DAILY Prescribed by: CHAPIS MARY on 01/10/23 1146 Last Action: Continued Aspirin (Aspirin EC) 81 Mg Tablet.dr, 81 MG PO DAILY, (Reported) Entered as Reported by: JULIETA TOBIAS on 07/20/18 0848 Last Action: Continued Atorvastatin Calcium (Atorvastatin Calcium) 80 Mg Tablet, 80 MG PO HS, (Reported) Entered as Reported by: ILA COLEMAN on 10/17/20 1134 Last Action: Continued Cholecalciferol (Vitamin D3) (Vitamin D3) 25 Mcg (1000 Unit) Tablet, 25 MCG PO DAILY, (Reported) Entered as Reported by: ILA COLEMAN on 02/21/22 1013 Last Action: Continued Clopidogrel Bisulfate (Clopidogrel) 75 Mg Tablet, 75 MG PO DAILY, (Reported) Entered as Reported by: JULIETA TOBIAS on 05/20/16 0908 Last Action: Continued Docusate Sodium (Docusate Sodium) 100 Mg Capsule, 200 MG PO HS, (Reported) Entered as Reported by: ILA COLEMAN on 01/10/23 1025 Last Action: Continued Dulaglutide (Trulicity) 1.5 Mg/0.5 Ml Pen.injctr, 1.5 MG SQ SAT, (Reported) Entered as Reported by: ILA COLEMAN on 01/10/23 102 Last Action: Converted Esomeprazole Magnesium (Esomeprazole Magnesium) 20 Mg Capsule.dr, 20 MG PO HS, (Reported) Entered as Reported by: ILA COLEMAN on 01/10/23 1025 Last Action: Converted Fenofibrate (Fenofibrate) 160 Mg Tablet, 160 MG PO HS, (Reported) Entered as Reported by: JULIETA TOBIAS on 07/20/18 0848 Last Action: Converted Isosorbide Mononitrate (Isosorbide Mononitrate ER) 60 Mg Tab, 60 MG PO DAILY, (Reported) Entered as Reported by: JULIETA TOBIAS on 05/20/16 0908 Last Action: Continued Levothyroxine Sodium (Levothyroxine Sodium) 112 Mcg Tablet, 112 MCG PO DAILY, (Reported) Entered as Reported by: ILA COLEMAN on 01/04/20 1031 Last Action: Continued Nitroglycerin (Nitroglycerin) 0.4 Mg Tab.subl, 0.4 MG SL UD PRN for CHEST PAIN, (Reported) Entered as Reported by: ILA COLEMAN on 02/21/22 1013 Last Action: Continued Ranolazine (Ranolazine ER) 1,000 Mg Tab.er.12h, 1,000 MG PO BID, (Reported) Entered as Reported by: ILA COLEMAN on 02/21/22 1013 Last Action: Converted Valsartan (Valsartan) 160 Mg Tablet, 160 MG PO DAILY, (Reported) Entered as Reported by: ILA COLEMAN on 10/17/20 1134 Last Action: Converted Exam Vital Signs Vital Signs Date Time Temp Pulse Resp B/P (MAP) Pulse Ox O2 Delivery O2 Flow Rate FiO2 07/20/23 08:10 Room Air 0.00 07/20/23 08:00 100 07/20/23 07:47 52 16 144/66 (92) 07/20/23 02:30 36.8 Physical Exam Gen: NAD, resting comfortably Neck: No bruits, no JVD Lungs: Diminished bibasilar breath sounds but otherwise CTA B; no rales or rhonchi. Faint wheezing noted. CV: nl s1/s2; no murmurs gallops or rubs. Regular rate and rhythm. Abd: Soft nontender nondistended, no hepatosplenomegaly, positive bowel sounds.; Ext: 2+ radial and DP pulses; no c-c-e, wwp Labs Laboratory Tests Test 07/19/23 21:40 07/20/23 00:41 07/20/23 04:08 Range/Units White Blood Count 6.5 4.3-11.0 10^3/uL Red Blood Count 3.71 L 3.80-5.11 10^6/uL Hemoglobin 10.7 L 11.5-16.0 g/dL Hematocrit 34 L 35-52 % Mean Corpuscular Volume 91 80-99 fL Mean Corpuscular Hemoglobin 29 25-34 pg Mean Corpuscular Hemoglobin Concent 32 32-36 g/dL Red Cell Distribution Width 14.6 H 10.0-14.5 % Platelet Count 302 130-400 10^3/uL Mean Platelet Volume 9.6 9.0-12.2 fL Immature Granulocyte % (Auto) 1 % Neutrophils (%) (Auto) 52 42-75 % Lymphocytes (%) (Auto) 35 12-44 % Monocytes (%) (Auto) 10 0-12 % Eosinophils (%) (Auto) 2 0-10 % Basophils (%) (Auto) 1 0-10 % Neutrophils # (Auto) 3.4 1.8-7.8 10^3/uL Lymphocytes # (Auto) 2.3 1.0-4.0 10^3/uL Monocytes # (Auto) 0.7 0.0-1.0 10^3/uL Eosinophils # (Auto) 0.1 0.0-0.3 10^3/uL Basophils # (Auto) 0.0 0.0-0.1 10^3/uL Immature Granulocyte # (Auto) 0.0 0.0-0.1 10^3/uL Prothrombin Time 14.2 12.2-14.7 SEC INR Comment 1.1 0.8-1.4 Activated Partial Thromboplast Time 28 24-35 SEC D-Dimer 1.05 H 0.00-0.49 UG/ML Sodium Level 139 135-145 MMOL/L Potassium Level 3.8 3.6-5.0 MMOL/L Chloride Level 105 98-107 MMOL/L Carbon Dioxide Level 25 21-32 MMOL/L Anion Gap 9 5-14 MMOL/L Blood Urea Nitrogen 15 7-18 MG/DL Creatinine 0.68 0.60-1.30 MG/DL Estimat Glomerular Filtration Rate 89 BUN/Creatinine Ratio 22 Glucose Level 130 H 70-105 MG/DL Calcium Level 9.0 8.5-10.1 MG/DL Corrected Calcium 9.2 8.5-10.1 MG/DL Magnesium Level 1.6 1.6-2.4 MG/DL Total Bilirubin 0.3 0.1-1.0 MG/DL Aspartate Amino Transf (AST/SGOT) 18 5-34 U/L Alanine Aminotransferase (ALT/SGPT) 13 0-55 U/L Alkaline Phosphatase 64 40-136 U/L Total Creatine Kinase 35 29-168 U/L Creatine Kinase MB 0.6 <6.6 NG/ML Myoglobin 19.2 10.0-92.0 NG/ML Troponin I < 0.028 < 0.028 < 0.028 <0.028 NG/ML B-Type Natriuretic Peptide 41.2 <100.0 PG/ML Total Protein 7.8 6.4-8.2 GM/DL Albumin 3.7 3.2-4.5 GM/DL Amylase Level 24 L 25-125 U/L Lipase 33 8-78 U/L Triglycerides Level 118 <150 MG/DL Cholesterol Level 129 < 200 MG/DL LDL Cholesterol Direct 84 1-129 MG/DL VLDL Cholesterol 24 5-40 MG/DL HDL Cholesterol 33 L 40-60 MG/DL A/P-Cardiology Plan 78-year-old female with a history of CAD status post three-vessel CABG in 2006 (occluded GALLEGOS-LAD, patent SVG-Diag with retragrade flow into LAD, occluded SVG- OM), COPD on 2 L home O2, GERD, hypertension, hyperlipidemia, chronic chest pain on Ranexa and Imdur who presents for evaluation of chest discomfort. Patient states that she was at home sitting and experienced acute onset chest discomfort associated with shortness of breath diaphoresis. ##Chest pain: Troponins are negative x3. BNP within normal limits. Chest CTA was limited secondary to contrast timing for PE evaluation. Chest pain currently resolved. Patient has a complex cardiac history with 2 occluded grafts, SVG to OM and GALLEGOS to LAD, and is only supplied by a SVG to a diagonal with retrograde flow into the LAD circulation. She is currently on Ranexa and Imdur. I will increase her Imdur from 60-90 continue aspirin, Norvasc, atorvastatin, Plavix, Ranexa, valsartan for now. I will keep her n.p.o. after midnight. We will consider repeat stress testing versus transfer to an outside facility for consideration of alternative revascularization options. I will discuss with the marker machine attendant assuming care tomorrow. She states that she got quite sick with Lexiscan stress testing back in 2021. ##Hyperlipidemia: LDL is 84, HDL 33, total cholesterol 129, triglycerides 118.. ##Hypertension: Blood pressures 130s to 140s over 60s to 80s. We will continue current regimen for now ##Bradycardia: Heart rates down in the 40s to 50s. Patient is not on any sanket agents. Continue to monitor AMARJIT ESTES MD Jul 20, 2023 10:37 am
[2023-07-20] MEDS: ISOSORBIDE MONONITRATE 60 MG TABLET PO SCH (20:02)
[2023-07-20] MEDS ORDERED: PANTOPRAZOLE 20 MG TABLET PO SCH (21:00)
[2023-07-20] MEDS ORDERED: DOCUSATE SODIUM 100 MG CAPSULE PO SCH (21:00)
[2023-07-20] MEDS ORDERED: FENOFIBRATE, Micronized 134 MG CAPSULE PO SCH (21:00)
[2023-07-21 00:42] VITALS: BP 100/34
[2023-07-21 04:11] VITALS: BP 116/53
[2023-07-21 05:52] LABS: BASOPHILS % (AUTO) 1 % (0-10); EOSINOPHILS # (AUTO) 0.1 10^3/uL (0.0-0.3); EOSINOPHILS % (AUTO) 2 % (0-10); HEMATOCRIT 34 % (35-52); HEMOGLOBIN 10.6 g/dL (11.5-16.0); LYMPHOCYTES # (AUTO) 1.7 10^3/uL (1.0-4.0); LYMPHOCYTES % (AUTO) 28 % (12-44); MEAN CORPUSCULAR HEMOGLOBIN 29 pg (25-34); MEAN CORPUSCULAR HGB CONC 31 g/dL (32-36); MEAN CORPUSCULAR VOLUME 91 fL (80-99); MEAN PLATELET VOLUME 9.6 fL (9.0-12.2); MONOCYTES # (AUTO) 0.6 10^3/uL (0.0-1.0); MONOCYTES % (AUTO) 10 % (0-12); NEUTROPHILS # (AUTO) 3.6 10^3/uL (1.8-7.8); NEUTROPHILS % (AUTO) 59 % (42-75); PLATELET COUNT 255 10^3/uL (130-400); WHITE BLOOD COUNT 6.1 10^3/uL (4.3-11.0)
[2023-07-21 06:21] LABS: ALBUMIN 3.3 GM/DL (3.2-4.5); BILIRUBIN,TOTAL 0.3 MG/DL (0.1-1.0); CALCIUM 8.9 MG/DL (8.5-10.1); CREATININE SERUM 0.82 MG/DL (0.60-1.30); POTASSIUM 3.9 MMOL/L (3.6-5.0)
[2023-07-21] MEDS: CATHETER FLUSH 10 ML SYR IVP SCH ×2 (06:26→14:00)
[2023-07-21] MEDS ORDERED: LEVOTHYROXINE 112 MCG TABLET PO SCH (06:30)
[2023-07-21] MEDS: ACETAMINOPHEN 500 MG TABLET PO PRN (08:02)
[2023-07-21 08:16] VITALS: BP 128/53
[2023-07-21] MEDS ORDERED: ASPIRIN enteric coated 81MG TABLET PO SCH (09:00)
[2023-07-21] MEDS ORDERED: REGADENOSON 0.4 MG/5 ML SYR IV ONE (11:03)
[2023-07-21 11:07] VITALS: BP 139/64
--- NOTE | 2023-07-21 12:50 | Cardiology Progress Note ---
Subjective Date Seen by Provider: Jul 21, 2023 Time Seen by Provider: 12:48 Subjective/Events-last exam Patient was seen at bedside, complain of fatigue and loss of energy. No chest pain Objective-Cardiology Exam Last Set of Vital Signs Vital Signs 07/20/23 07/21/23 07/21/23 07/21/23 08:10 08:16 11:07 12:07 Temp 36.1 Pulse 55 Resp 16 B/P (MAP) 139/64 (89) Pulse Ox 95 O2 Delivery Room Air O2 Flow Rate 0.00 I&O Intake and Output 07/21/23 00:00 Intake Total 550 ml Output Total 200 ml Balance 350 ml Intake Oral 550 ml Output Urine Total 200 ml # Voids 4 # Bowel Movements 1 Daily Weight Change No General: Alert, Oriented X3, Cooperative HEENT: Atraumatic, PERRLA Neck: Supple, No JVD, No Thyromegaly Lungs: Clear to Auscultation, Normal Air Movement Heart: Regular Rate, Normal S1, Normal S2, No Murmurs Abdomen: Normal Bowel Sounds, Soft, No Tenderness, No Hepatosplenomegaly, No Masses Extremities: No Clubbing, No Cyanosis, No Edema, Normal Pulses, No Tenderness/Swelling Skin: No Rashes, No Breakdown, No Significant Lesion Neuro: Normal Gait, Normal Speech, Strength at 5/5 X4 Ext, Normal Tone, Sensation Intact Psych/Mental Status: Mental Status NL, Mood NL Results Lab Laboratory Tests 07/21/23 05:43 A/P-Cardiology Admission Diagnosis Chest pain Coronary artery disease Hypertension Hyperlipidemia Assessment/Plan Chest pain nonspecific etiology, troponin was negative History of chronic stable angina. Stress test was done on July 21, 2023 showing nonobstructive disease Coronary artery disease, History of CABG x 3 in 2006, Cardiac catheterization done June 19, 2016 The LAD is occluded proximally, The GALLEGOS to the LAD is atretic and occluded. Vein graft to the diagonal artery is patent, filling retrograde the LAD. Ostium of the diagonal branch was moderate to severe stenosis not amenable to intervention. Left circumflex is moderate in size with 50 percent stenosis at the midportion. First obtuse marginal branch is occluded and the vein graft to the OM branch is occluded. Right coronary artery is the dominant artery, moderate in size with mild disease, nonobstructive disease. Underwent [facility] February 2022 showing occluded LAD and GALLEGOS, patent VG to the diagonal artery filling the LAD with small vessel disease distally. Occluded VG to the OM, occluded OM, with mild disease in the CX. Mild disease in the dominant RCA, nonobstructive disease. Hypertension, controlled. History of orthostatic hypotension. Better at this time. I am hesitant to do any changes to her blood pressure medication due to history of orthostatic dizziness and syncope Hyperlipidemia, maintained on atorvastatin and fenofibrate Continue to monitor lipids COPD, Using oxygen as needed and at night, has been followed and managed by Dr. Garcia Dyspnea, chronic secondary to COPD. Mild bilateral nonobstructive carotid stenosis per carotid duplex on December 2021. Continue to monitor, patient has URI symptoms today, will plan to repeat carotid duplex after next appt. Sick sinus syndrome with bradycardia, intolerance to beta blockers. Hypothyroidism, managed by primary care physician Patient was reassured, still complaining of generalized fatigue and loss of energy. From cardiac standpoint patient is okay for discharge Consider physical therapy evaluation AZAR RODARTE MD Jul 21, 2023 12:50
[2023-07-21] MEDS: ASPIRIN enteric coated 81MG TABLET PO SCH (12:59)
[2023-07-21] MEDS: amLODIPine 5 MG TABLET PO SCH (12:59)
[2023-07-21] MEDS: ISOSORBIDE MONONITRATE 60 MG TABLET PO SCH (12:59)
[2023-07-21] MEDS: CLOPIDOGREL 75 MG TABLET PO SCH (12:59)
[2023-07-21] MEDS: VITAMIN D3 25 MCG (1,000 UNITS) TABLET PO SCH (12:59)
[2023-07-21] MEDS: RANOLAZINE ER 500 MG TABLET PO SCH (12:59)
[2023-07-21 13:00] VITALS: BP 155/103
[2023-07-21] MEDS: VALSARTAN 80 MG (DIOVAN) TAB PO SCH (13:00)
--- NOTE | 2023-07-21 13:17 | Discharge Summary ---
Diagnosis/Chief Complaint Date of Admission Jul 20, 2023 at 02:21 Date of Discharge Admission Diagnosis Chest pain [facility] Discharge Diagnosis (1) Chest pain Status: Acute Assessment & Plan: Patient presented with persistent chest pain that lasted for couple of hours. Work-up in the ED was negative. EKG was normal minus, troponins were negative x3. Chest pain eventually resolved with morphine and nitroglycerin. Given patient's cardiac history, she was ultimately admitted for observation and further work-up. Echocardiogram completed today which does not appear to be concerning either. Cardiology consulted, appreciate recommendations Plan for stress test tomorrow per cardiology, n.p.o. at midnight Continue to monitor on telemetry (2) CAD (coronary artery disease), [place] coronary artery Status: Chronic Assessment & Plan: Patient has a history of coronary artery disease status post CABG in 2006. Continue TRANSCRIPT CLERK aspirin and Plavix daily Continue nitroglycerin as needed for pain Continue TRANSCRIPT CLERK ranolazine (3) HTN (hypertension) Status: Chronic Assessment & Plan: Blood pressures appear to be well controlled here. We will continue home regimen. Continue home amlodipine 5 mg daily, valsartan 160 mg daily (4) Mixed hyperlipidemia Status: Chronic Assessment & Plan: Continue TRANSCRIPT CLERK fenofibrate and atorvastatin 80 (5) Hypothyroidism Status: Chronic Assessment & Plan: Continue TRANSCRIPT CLERK levothyroxine 112 mcg daily (6) COPD (chronic obstructive pulmonary disease) Status: Chronic Assessment & Plan: Patient does not appear to be on any inhalers at home and has not required any oxygen here in the hospital. We will continue to monitor. (7) Non-insulin dependent type 2 diabetes mellitus Status: Chronic Assessment & Plan: Continue TRANSCRIPT CLERK Trulicity. Discharge Summary Discharge Physical Exam Allergies: Coded Allergies: tramadol (Verified Allergy, Severe, Rash, 01/10/23) fentanyl (Unverified Allergy, Intermediate, SEVERE NAUSEA/VOMITTING, 06/07/11) Vitals & I&Os Vital Signs Date Time Temp Pulse Resp B/P (MAP) Pulse Ox O2 Delivery O2 Flow Rate FiO2 07/21/23 12:45 36.1 54 20 96 Room Air 07/21/23 11:07 139/64 (89) 07/20/23 08:10 0.00 General Appearance: No Apparent Distress Cardiovascular: Regular Rate, Rhythm, No Murmur Gastrointestinal: Normal Bowel Sounds, Soft Neurologic/Psychiatric: Alert, Oriented x3 Hospital Course We will secondary to chest pain. She had negative troponins and was seen in consultation by cardiology. They recommended stress testing which was done negative. Cardiology increased her Imdur to twice a day dosing and she was discharged home in stable and improved condition to follow-up with Dr. Campbell who also happens to be her primary wheel polisher and with Dr. Pretty her PCP. Labs (last 24 hrs) Laboratory Tests 07/21/23 05:43: White Blood Count 6.1, Red Blood Count 3.70L, Hemoglobin 10.6L, Hematocrit 34L, Mean Corpuscular Volume 91, Mean Corpuscular Hemoglobin 29, Mean Corpuscular Hemoglobin Concent 31L, Red Cell Distribution Width 14.6H, Platelet Count 255, Mean Platelet Volume 9.6, Immature Granulocyte % (Auto) 1, Neutrophils (%) (Aut o) 59, Lymphocytes (%) (Auto) 28, Monocytes (%) (Auto) 10, Eosinophils (%) (Auto) 2, Basophils (%) (Auto) 1, Neutrophils # (Auto) 3.6, Lymphocytes # (Auto) 1.7, Monocytes # (Auto) 0.6, Eosinophils # (Auto) 0.1, Basophils # (Auto) 0.0, Immature Granulocyte # (Auto) 0.0, Sodium Level 139, Potassium Level 3.9, Chloride Level 107, Carbon Dioxide Level 26, Anion Gap 6, Blood Urea Nitrogen 21H, Creatinine 0.82, Estimat Glomerular Filtration Rate 73, BUN/Creatinine Ratio 26, Glucose Level 147H, Calcium Level 8.9, Corrected Calcium 9.5, Total Bilirubin 0.3, Aspartate Amino Transf (AST/SGOT) 15, Alanine Aminotransferase (ALT/SGPT) 12, Alkaline Phosphatase 54, Total Protein 7.0, Albumin 3.3 Patient resulted labs reviewed. Pending Labs Laboratory Tests 07/21/23 05:43: White Blood Count 6.1, Red Blood Count 3.70, Hemoglobin 10.6, Hematocrit 34, Mean Corpuscular Volume 91, Mean Corpuscular Hemoglobin 29, Mean Corpuscular Hemoglobin Concent 31, Red Cell Distribution Width 14.6, Platelet Count 255, Mean Platelet Volume 9.6, Immature Granulocyte % (Auto) 1, Neutrophils (%) (Auto) 59, Lymphocytes (%) (Auto) 28, Monocytes (%) (Auto) 10, Eosinophils (%) (Auto) 2, Basophils (%) (Auto) 1, Neutrophils # (Auto) 3.6, Lymphocytes # (Auto) 1.7, Monocytes # (Auto) 0.6, Eosinophils # (Auto) 0.1, Basophils # (Auto) 0.0, Immature Granulocyte # (Auto) 0.0, Sodium Level 139, Potassium Level 3.9, Chloride Level 107, Carbon Dioxide Level 26, Anion Gap 6, Blood Urea Nitrogen 21, Creatinine 0.82, Estimat Glomerular Filtration Rate 73, BUN/Creatinine Ratio 26, Glucose Level 147, Calcium Level 8.9, Corrected Calcium 9.5, Total Bilirubin 0.3, Aspartate Amino Transf (AST/SGOT) 15, Alanine Aminotransferase (ALT/SGPT) 12, Alkaline Phosphatase 54, Total Protein 7.0, Albumin 3.3 Imaging: Reviewed Imaging Films, Reviewed Imaging Report Discussion & Recommendations Discharge Planning: >30 minutes discharge planning Discharge Home Medications: Active Scripts Active Amlodipine Besylate 5 Mg Tablet 5 Mg PO DAILY Reported Docusate Sodium 100 Mg Capsule 200 Mg PO HS Esomeprazole Magnesium 20 Mg Capsule.dr 20 Mg PO HS Trulicity (Dulaglutide) 1.5 Mg/0.5 Ml Pen.injctr 1.5 Mg SQ SAT Vitamin D3 (Cholecalciferol (Vitamin D3)) 25 Mcg (1000 Unit) Tablet 25 Mcg PO DAILY Nitroglycerin 0.4 Mg Tab.subl 0.4 Mg SL UD PRN Ranolazine ER (Ranolazine) 1,000 Mg Tab.er.12h 1,000 Mg PO BID Valsartan 160 Mg Tablet 160 Mg PO DAILY Atorvastatin Calcium 80 Mg Tablet 80 Mg PO HS Levothyroxine Sodium 112 Mcg Tablet 112 Mcg PO DAILY Fenofibrate 160 Mg Tablet 160 Mg PO HS Aspirin EC (Aspirin) 81 Mg Tablet.dr 81 Mg PO DAILY Acetaminophen 500 Mg Tablet 1,000 Mg PO Q6H PRN TAKES 2 (500 MG) TABLETS Isosorbide Mononitrate ER (Isosorbide Mononitrate) 60 Mg Tab 60 Mg PO DAILY Clopidogrel (Clopidogrel Bisulfate) 75 Mg Tablet 75 Mg PO DAILY Instructions to patient/family Please see electronic discharge instructions given to patient. Clinical Quality Measures AMI/AHF: ASA po Prior to arrival: Yes Problem Qualifiers (1) Hypothyroidism: Hypothyroidism type: unspecified Qualified Codes: E03.9 - Hypothyroidism, unspecified DAVONTE CALI MD Jul 21, 2023 13:17
--- NOTE | 2023-07-21 13:20 | Discharge Inst-Simple/Standard ---
Discharge Inst-Standard Discharge Medications New, Converted or Re-Newed RX: Transmitted to Pharmacy Patient Instructions/Follow Up Plan of Care/Instructions/FU: Please continue to take your medications as written. Please follow up with your primary care doctor to follow up this hospital stay. Activity as Tolerated: Yes Discharge Diet: Cardiac Diet Return to The Hospital For: Chest pain, shortness of breath, fever, weakness, if you feel you are getting worse. DAVONTE CALI MD Jul 21, 2023 13:20
[2023-07-21] MEDS ORDERED: ISOS60TA63 PO (13:24)
[2023-07-21 13:28] VITALS: BP 158/61
--- NOTE | 2023-07-21 17:15 | Cardiology Stress Test Report ---
Stress Test Report Date of Procedure/Referring: Date of Procedure: Jul 21, 2023 [facility] Center/[facility] Admitting Physician Admitting Physician: Dee Ortiz MD Attending Physician: Cyndie Barajas MD Indications: CAD Baseline Heart Rate: 53 Baseline Blood Pressure: Blood Pressure Systolic: 158 Blood Pressure Diastolic: 61 Baseline Vitals Vital Signs Date Time Temp Pulse Resp B/P (MAP) Pulse Ox O2 Delivery O2 Flow Rate FiO2 07/19/23 21:37 62 18 170/72 (104) 96 Room Air 07/19/23 21:41 2.00 07/20/23 02:30 36.8 Baseline EKG: Baseline EKG: NSR Summary After explaining the procedure to the patient, she signed a consent and then brought to the stress nuclear laboratory. Patient received 0.4 mg Lexiscan for stress test, ECG, heart rate and blood pressure were monitored continuously. Resting and stress dose of radio tracer were injected, imaging was acquired and reviewed in short axis, horizontal long axis and vertical long axis views. TID: 1.07 SSS: 0 SDS: 0 EF: 69 Patient tolerated Lexiscan well No significant ischemia or infarction noted on SPECT images Normal left ventricular size, ejection fraction 69% Copy Copies To 1: [facility]/ AZAR RODARTE MD Jul 21, 2023 17:15
[2023-07-26] MEDS ORDERED: NON-FORMULARY MEDICATION 1 EA EA (Dulaglutide (Trulicity) 1.5 MG) SQ SCH (09:00)
== END 2023-07-21 15:30 | disposition home or self-care (01) ==
LOC: EDUNIT# 21:34 → ER 21:36 → CSD 07-20 02:21
PROVIDERS: ADMIT Internal Medicine; ATTEND Family Medicine
DX: I25.118 Atherosclerotic heart disease of native coronary artery with other forms of angina pectoris (principal); I10 Essential (primary) hypertension; E78.2 Mixed hyperlipidemia; E03.9 Hypothyroidism, unspecified; J44.9 Chronic obstructive pulmonary disease, unspecified; E11.9 Type 2 diabetes mellitus without complications; I95.9 Hypotension, unspecified; I65.23 Occlusion and stenosis of bilateral carotid arteries; I49.5 Sick sinus syndrome; Z95.1 Presence of aortocoronary bypass graft; Z99.81 Dependence on supplemental oxygen; Z79.899 Other long term (current) drug therapy; Z87.891 Personal history of nicotine dependence; Z79.82 Long term (current) use of aspirin; Z79.84 Long term (current) use of oral hypoglycemic drugs
CPT/HCPCS: 36415; 71045; 71275; 78452; 80053; 80061; 82150; 82550; 82553; 83690; 83735; 83874; 83880; 84484; 85025; 85379; 85610; 85730; 93005; 93017; 93041; 93306